=== PATIENT | male | born 1975 | race Caucasian/White ===

== ENCOUNTER 2025-03-15 06:29 | Day surgery (SDC) | payer MEDICARE, MEDICAID, SELFPAY ==
[2025-03-15] VITALS (8 sets, daily range): BP systolic 94–134; BP diastolic 70–98; PULSE 78–91; RESP 16–18; TEMP 36.4–36.8; O2SAT 93–98; BMI 29.0
--- OUTSIDE RECORDS SUMMARY | 2025-03-15 06:47 | XMS RPT_ITS | CCD ---
Demographics Address [address] [place], [place] [id number] Home Phone Preferred Language en Marital Status Rastafari Affiliation Unknown Race White Ethnic Group Not or Lati no Author Organization [facility] ion [facility] TABLET TESTER [facility] Care Team Providers Care Family Resource Management Professor Name Role Phone No, Physician Primary Care Provider Unavailclara e PHYSICIAN, NOT RECORDED Primary Care Physician U MD TERESA Mendez Primary Care Provider DO GUZMAN LYNN Emergency Provider MD BELLA GREEN Admit Provider MD BELLA GREEN Attending Provider MD BORA LONG RICK Other Provider [phone] MD TERESA ROMEO Primary Care Provider DO RAZ RAJAN Emergency Provider [phone] MD TERESA ROMEO Primary Care Provider MD SHAYLA LOPEZ Emergency Provider MD PIA GARLAND Admit Provider MD PIA GARLAND Attending Provider MD BOB MCGUIRE Other Provider No, Physician Primary Care Provider UnavailMD GAURAV Brooks Primary Care Provider [phone] MD NHI CONNORS Emergency Provider [phone] MD CARLYN CAMARGO Emergency Provider MD SHAYLA MARK Admit Provider MD SHAYLA MARK Attending Provider [phone] JEANNINE BEEBE Other Provider YOEL PALMA Primary Care Provider MD FUENTES SAMUELS Emergency Provider MD IKE PEPPER Admit Provider MD IKE PEPPER Attending Provider DO JAMIR CALDERA Other Provider [phone] NO, PHYSICIAN Primary Care Unavailable HIREMATH, WILTON KOTRESHWAR Referring Unav ailable HIREMATH, WILTON SUSAN Attending Unav ailable KAPIL PARK, DR KAYA Torres Attending Carlito DICK MD, DR KAYA Torres Consulting Carlito BAUTISTA MD, BOBBY Casper Primary Care Unavailable NO, PHYSICIAN Primary Care Unavailable HIREMATH, WILTON KOTRESHWAR Attending Unav ailable NO, PHYSICIAN Primary Care Unavailable HIREMATH, WILTON KOTRESHWAR Attending Unav ailable HIREMATH, WILTON KOTRESHWAR Attending Unav ailable NO, PHYSICIAN Primary Care Unavailable HIREMATH, WILTON KOTRESHWAR Admitting Unav ailable [facility], [facility] Consulting Unav ailable NO, PHYSICIAN Primary Care Unavailable HIREMATH, WILTON KOTRESHWAR Admitting Unav ailable HIREMATH, WILTON KOTRESHWAR Attending Unav ailable Unavailable Primary Care Provider Unavailclara HEWITT MD, LILA Miller Emergency Provider [phone] SANA DUMONT MD Admit Provider SANA DUMONT MD Attending Provider GAURAV SPEARS MD Primary Care Provider ROMIE SAHU Primary Care Unavailable ROMIE SAHU Attending Unavailable ROMIE SAHU Referring Unavailable ROMIE SAHU Attending Unavailable ROMIE SAHU Referring Unavailable ROMIE SAHU Referring Unavailable ROMIE SAHU Attending Unavailable ANA MARIA SILVA Admitting Unavailable SERNA, GAURAV Admitting Unavailable JENNI CAMPBELL Attending Unavailable ROMIE SAHU Attending Unavailable ROMIE SAHU Referring Unavailable GAURAV SERNA Attending Unavailable GAURAV SERNA Referring Unavailable GAURAV SPEARS Primary Care Unavailable SANA DUMONT Admitting Unavailable SANA DUMONT Attending Unavailable Jenn Mitchell Attending Provider [phone] Edyta PARK, Dr. Khoury Primary Care Provider [phone] Dr. Peng Lan MD Referring Provider [phone] SHAYLA OSEI DO Admitting Unavailable SHAYLA OSEI DO Primary Care Unavailable SHAYLA OSEI DO Attending Unavailable PENG LAN MD Admitting Unavailable PENG LAN MD Primary Care Unavailable PENG LAN MD Attending Unavailable CARRIE NUNEZ MD Primary Care UnavailCARRIE Kingsley MD Attending UnavailCARRIE Kingsley MD Admitting UnavailJenn Cotton Attending Unavailable Peng Lan Referring Unavailable Peng Lan Primary Care Unavailable Chino Morgan Attending Unavailable Peng Lan Primary Care Unavailable Medications Current Medications Medication Drug Class(es) Dates Sig (Normalized) Sig (Original) amLODIPine 10 mg oral tablet (20 sources) Dihydropyridine Calcium Channel Salazar Start: 01-15-2025 take 1 tablet by mouth once daily Amlodipine 10 mg tablet Active 10 mg PO daily January 15, 2025 12:00am Start: 10-28-2024 take 1 tablet by carmelo th once daily Amlodipine Besylate (Norvasc 5 Mg Tablet) 5 MG Tablet Active 10 MG PO Daily 60 30 October 28, 2024 2:54pm amlodipine 10 mg p.o. daily Start: 06-24-2023 End: 10-28-2024 take 1 tablet by mouth once daily Amlodipine Besylate (Norvasc 5 Mg Tablet) 5 MG Tablet Discontinued 5 MG PO Daily June 24, 2023 1:00am October 28, 2024 2:54pm Start: 05-25-2021 End: 02-10-2023 take 1 tablet by mouth once daily Amlodipine Besylate (Norvasc) 5 MG Tablet Discontinued 5 MG PO Daily February 08, 2022 12:00am February 10, 2023 6:35pm amoxicillin 500 mg oral capsule (1 source) Penicillin-class Antibacterial Start: 10-13-2024 take 1 capsule by mouth every eight hours amoxicillin 500 MG capsule Indications: Dental caries Take 1 capsule by mouth every 8 hours. 30 capsule 10/13/2024 Active aspirin 81 mg chewable tablet (20 sources) Platelet Aggregation Inhibitor, Nonsteroidal Anti-inflammatory Drug Start: 10-13-2024 take 1 tablet by mouth once daily aspirin 81 MG chewable tablet Take 1 tablet by mouth daily. 90 tablet 1 10/13/2024 Active Start: 10-07-2023 aspirin 81 MG EC tablet OK to resume aspirin on 10/07/2023, resume as directed Start: 10/07/23. 1 tablet 0 10/07/2023 Active Start: 10-07-2023 aspirin 81 MG EC tablet OK to resume aspirin on 10/07/2023, resume as directed Start: 10/07/23. 1 tablet 0 10/07/2023 Active Start: 10-07-2023 aspirin 81 MG EC tablet OK to resume aspirin on 10/07/2023, resume as directed Start: 10/07/23. 1 tablet 0 10/07/2023 Start: 06-22-2023 End: 10-02-2023 take 1 tablet by mouth once daily Aspirin (Adult Low Dose Aspirin Ec) 81 MG Tablet. Active 81 MG PO Daily June 22, 2023 1:00am Start: 05-25-2021 End: 06-24-2021 aspirin 81 mg oral tablet, c hewable Dose : 81 mg = 1 tab(s), Chewed, qDay, 0 Refill(s) Start Date: 05/25/21 Stop Date: 06/24/21 Status: Ordered Start: 05-29-2019 End: 11-14-2019 aspirin 81 mg chewable table t Chew and Swallow 1 (one) tablet (81 mg total) daily Start: 10/15/19. 30 tablet 0 10/15/2019 11/14/2019 Active Start: 05-25-2019 End: 05-25-2019 aspirin suppository 300 mg atorvastatin 40 mg oral tablet (20 sources) HMG-CoA Reductase Inhibitor Start: 01-15-2025 take 1 tablet by mouth once daily Atorvastatin 40 mg tablet Active 40 mg PO daily January 15, 2025 12:00am Start: 06-24-2023 End: 10-02-2023 take 1 tablet by mouth at bedtime Atorvastatin Calcium (Lipitor 40 Mg Tablet) 40 MG Tablet Active 40 MG PO Bedtime June 24, 2023 1:00am Start: 10-14-2019 End: 11-13-2019 take 1 tablet by mouth once daily atorvastatin (LIPITOR) 80 MG tablet Take 1 (one) tablet (80 mg total) by mouth nightly . 30 tablet 0 10/14/2019 Active Start: 05-26-2019 End: 10-14-2019 atorvastatin (LIPITOR) table t 80 mg bacillus coagulans [id number] unt / inulin 250 mg oral capsule (1 source) Start: 10-13-2024 take 1 tablet by mouth once daily Bacillus Coagulans-Inulin (PROBIOTIC FORMULA) 1-250 BILLION-MG CAPS Take 1 tablet by mouth daily. 90 capsule 1 10/13/2024 Active baclofen 10 mg oral tablet (20 sources) gamma-Aminobut yric Acid-ergic Agonist Start: 01-15-2025 Baclofen 10 mg table t Active mg PO January 15, 2025 12:00am Start: 09-26-2023 End: 10-02-2023 take 5 mg by mouth twice daily 5 mg, Oral, 2 times sheron ly, First dose on Kristal 09/26/23 at 2100 Start: 06-22-2023 take 1 tablet by carmelo th twice daily Baclofen 5 MG Tablet Active 5 MG PO Two Times A Day June 22, 2023 1:00am Start: 02-08-2022 End: 02-08-2022 take 1 tablet by mouth three times daily Baclofen (Baclofen 10 Mg Tablet) 10 MG Tablet Discontinued 10 MG PO Three Times A Day February 08, 2022 12:00am February 08, 2022 3:41pm Benzocaine (1 source) Standardized Chemical Allergen Benzocaine (ORAJEL MAXIMUM STRENGTH MT) Take by mouth every 4 hours as needed. Active Benzocaine/Menthol/Z inc Chlor (Orajel 3x Mouth Sores Gel) 5.1 GM Gel..Gram. (20 sources) Start: take 5.1 g by mouth four times daily as needed Benzocaine/Menthol/ Zinc Chlor (Orajel 3x Mouth Sores Gel) 5.1 GM Gel..Gram. Active 1 APPLIC PO Four Times a Day as needed for dental pain June 22, 2023 1:00am Start: 06-22-2023 take 5.1 g by mouth four times daily Benzocaine/Menthol/Zinc Chlor (Orajel 3x Mouth Sores Gel) 5.1 GM Gel..Gram. Active 1 APPLIC PO Four Times a Day June 22, 2023 1:00am Start: 06-22-2023 take 5.1 g by mouth four times daily Benzocaine/Menthol/Zinc Chlor (Orajel 3x Mouth Sores Gel) 5.1 GM Gel..Gram. Active 1 APPLIC PO Four Times a Day June 22, 2023 12:00am cimetidine 400 mg oral tablet (1 source) Histamine-2 Receptor Antagonist take 1 tablet by mouth twice daily cimetidine (TAGAMET) 400 MG tablet Take 400 mg by mouth two times a day. Active doxycycline hyclate 100 mg oral capsule (1 source) Tetracycline-class Drug Start: 05-25-20 End: 05-28-20 doxycycline hyclate 100 mg oral capsule Dose : 100 mg = 1 cap(s), Oral, BID, 0 Refill(s) Start Date: 05/25/21 Stop Date: 05/28/21 Status: Ordered DULoxetine 60 mg delayed release oral capsule (20 sources) Serotonin and Norepinephrine Reuptake Inhibitor Start: 10-14-19 take 1 capsule by mouth twice daily DULoxetine (CYMBALTA) 60 MG capsule Take 1 capsule by mouth two times a day. 180 capsule 1 10/13/2024 Active Start: 02-08-2022 take 1 capsule by [facility] once daily Duloxetine Hcl (Rita Marley) 60 MG Cap. Active 60 MG PO Daily February 07, 2022 11:00pm Start: 05-25-2021 End: 10-02-2023 take 1 capsule by mouth once daily Duloxetine Hcl (Cymbalta) 60 MG Capsule. Active 60 MG PO Daily February 10, 2023 12:00am famotidine 20 mg oral tablet (20 sources) Histamine-2 Receptor Antagonist Start: 02-10-2023 take 1 tablet by mouth once daily Famotidine (Pepcid 20 Mg Tablet) 20 MG Tablet Active 40 MG PO Daily February 09, 2023 11:00pm Start: 02-08-2022 End: 06-27-2023 Famotidine (Pepcid Ac) 10 MG Tablet Discontinued 40 MG PO Daily February 08, 2022 12:00am June 27, 2023 7:00pm Start: 02-08-2022 take 1 tablet by carmelo th once daily before mealtime Famotidine (Pepcid Ac) 10 MG Tablet Active 10 MG PO Daily February 08, 2022 12:00am Start: 08-15-2019 End: 11-13-2019 take 1 tablet by mouth once daily famotidine (PEPCID) 20 MG tablet Take 1 (one) tablet (20 mg total) by mouth nightly . 30 tablet 0 10/14/2019 Active Start: 05-26-2019 End: 05-29-2019 20 mg, Intravenous, Every 12 hours scheduled, First dose on Sat05/26/19 at 0200 Aseptically dilute dose of famotidine injection with 0.9% NaCl to a total volume of either 5 ml or 10 ml and inject over 2 minutes. take 1 tablet by carmelo th twice daily famotidine (PEPCID) 20 MG tablet Take 1 tablet by mouth two times a day. Active finasteride 5 mg oral tablet (20 sources) 5-alpha Reductase Inhibitor Start: 01-15-2025 take 1 tablet by mouth once daily Finasteride 5 mg tablet Active 5 mg PO daily January 15, 2025 12:00am Start: 02-16-2022 End: 10-02-2023 take 1 tablet by mouth once daily Finasteride (Proscar 5 Mg Tablet) 5 MG Tablet Active 5 MG PO Daily February 16, 2022 12:00am gabapentin 300 mg oral capsule (12 sources) Anti-epileptic Agent Start: 10-14-2019 End: 10-17-2019 take 3 capsules by mouth every eight hours gabapentin (NEURONTIN) 300 MG capsule Take 3 (three) capsules (900 mg total) by mouth every 8 (eight) hours for 3 days . 27 capsule 0 10/14/2019 Active Start: 09-28-2019 End: 10-14-2019 gabapentin (NEURONTIN) capsu le 900 mg Start: 09-21-2019 End: 09-28-2019 gabapentin (NEURONTIN) capsu le 800 mg Start: 09-06-2019 End: 09-21-2019 gabapentin (NEURONTIN) capsu le 500 mg Start: 09-05-2019 End: 09-06-2019 gabapentin (NEURONTIN) capsu le 300 mg Start: 09-04-2019 End: 09-05-2019 gabapentin (NEURONTIN) 300 m g/6 mL (6 mL) solution 200 mg Hydrocodone-Acetamin 5-325 mg (6 sources) Start: 02-10-2023 take 1 tablet by mouth every four hours Hydrocodone-Acetamin 5-325 mg Active 1 TAB PO Q4H February 09, 2023 11:00pm Start: 02-10-2023 take 1 tablet by carmelo th every four hours Hydrocodone-Acetamin 5-325 mg Active 1 TAB PO Q4H February 10, 2023 12:00am hydrocortisone 0.01 mg/mg topical ointment (20 sources) Corticosteroid Start: 06-22-2023 Hydrocortisone (Hydrocortisone 1% Ointment) 28.35 GM Oint Active 1 APPLIC TP Four Times a Day as needed for Itching June 22, 2023 1:00am hydrOXYzine hydrochloride 25 mg oral tablet (4 sources) Antihistamine Start: 08-11-2019 End: 10-24-2019 take 1 tablet by mouth every six hours as needed hydrOXYzine (ATARAX) 25 MG tablet Take 1 (one) tablet (25 mg total) by mouth every 6 (six) hours as needed for anxiety . 30 tablet 0 10/14/2019 10/24/2019 Active Start: 06-15-2019 End: 08-11-2019 hydrOXYzine (ATARAX) 10 mg/5 mL syrup 25 mg levETIRAcetam 500 mg oral tablet (20 sources) Start: 01-15-2025 take 1 tablet by mouth twice daily Levetiracetam 500 mg tablet Active 500 mg PO TWICE A DAY January 15, 2025 12:00am Start: 05-26-2021 End: 10-02-2023 take 1 tablet by mouth twice daily Levetiracetam (Keppra) 500 MG Tablet Active 500 MG PO Two Times A Day February 08, 2022 12:00am levoFLOXacin 750 mg oral tablet (7 sources) Quinolone Antimicrobial Start: 10-28-2024 take 1 tablet by mouth once daily Levofloxacin 750 MG Tablet Active 750 MG PO Daily October 28, 2024 12:00am take levofloxacin 750 mg p.o. daily for the following 14 days Start: 07-21-2019 End: 07-26-2019 levoFLOXacin (LEVAQUIN) tabl et 500 mg Start: 06-02-2019 End: 06-09-2019 levoFLOXacin (LEVAQUIN) IVPB 750 mg (premix) lidocaine hydrochloride 20 mg/ml mucous membrane topical solution (8 sources) Antiarrhythmic, Amide Local Anesthetic Start: 10-28-2024 Lidocaine Hcl (Lidocaine Viscous 2% Liquid) 15 ML Cup Active 15 ML PO Q3H as needed for TOOTH PAIN 2 October 28, 2024 12:00am lidocaine 15 mL p.o. q.3h PRN Start: 09-26-2023 End: 09-26-2023 lidocaine 1% (PF) (XYLOCAINE -MPF) 10 mg/mL (1 %) injection 0.2 mL Start: 06-24-2019 End: 10-14-2019 lidocaine (LIDODERM) 2 patch Start: 06-10-2019 End: 06-10-2019 lidocaine 2% (PF) 20 mg/mL ( 2 %) injection 1 mL loratadine 10 mg oral tablet (1 source) Start: 11-23-2022 take 1 tablet by mouth once daily loratadine (CLARITIN) 10 MG tablet Take 1 tablet by mouth daily. 30 tablet 11/23/2022 Active losartan potassium 100 mg oral tablet (1 source) Angiotensin 2 Receptor Salazar Start: 10-13-2024 take 1 tablet by mouth once daily losartan (COZAAR) 100 MG tablet Indications: Primary hypertension Take 1 tablet by mouth daily. 90 tablet 1 10/13/2024 Active magnesium hydroxide 80 mg/ml oral suspension (20 sources) Start: 06-22-2023 End: 10-02-2023 take 1 mL by mouth once daily Magnesium Hydroxide (Milk Of Magnesia) 400 MG/5 ML Oral.Susp Active 30 ML PO Daily 0 June 27, 2023 7:19pm Start: 02-08-2022 End: 06-27-2023 take 1 mL by mouth every twenty-four hours as needed for constipation Magnesium Hydroxide (Milk Of Magnesia) 400 MG/5 ML Oral.Susp Discontinued 30 ML PO Q24H as needed for Constipation February 08, 2022 12:00am June 27, 2023 6:58pm Start: 07-23-2019 End: 10-14-2019 magnesium hydroxide (MOM) 40 0 mg/5 mL suspension 2,400 mg Start: 05-26-2019 End: 07-20-2019 magnesium hydroxide (MOM) 40 0 mg/5 mL suspension 2,400 mg medroxyPROGESTERone acetate 10 mg oral tablet (20 sources) Progestin Start: 10-13-2024 take 1 tablet by mouth once daily medroxyPROGESTERone (PROVERA) 10 MG tablet Take 1 tablet by mouth daily. 90 tablet 1 10/13/2024 Active Start: 02-10-2023 End: 10-02-2023 take 1 tablet by mouth twice daily Medroxyprogesterone Acetate (Provera) 10 MG Tablet Active 10 MG PO Two Times A Day February 10, 2023 12:00am take 1 tablet by carmelo th once daily medroxyPROGESTERone (PROVERA) 10 MG tablet Take 1 (one) tablet (10 mg total) by mouth daily . 0 Active Menthol (7 sources) Start: 05-26-2021 Biofreeze 4% t opical gel Apply 1 beryl, Topical, BID, PRN as needed for pain, # 118 mL, 0 Refill(s), Gel, 94.9 Start Date: 05/26/21 Status: Ordered End: 09-27-2023 menthol 4 % Gel Apply topica lly 2 (two) times a day as needed (knees/shoulders) . 0 09/27/2023 Discontinued (Error) Menthol (Biofreeze) 473 ML Gel..Ml. (20 sources) Start: 02-08-2022 Menthol (Biofr eeze) 473 ML Gel..Ml. Active 1 APPLIC TP Two Times A Day February 07, 2022 11:00pm LEFT KNEE Start: 02-08-2022 Menthol (Biofr eeze) 473 ML Gel..Ml. Active 1 APPLIC TP Two Times A Day February 08, 2022 12:00am LEFT KNEE Milk of Magnesia (2 sources) Start: 05-26-2021 take 1200 mg by mouth once daily at bedtime as needed for constipation Milk of Magnesia 1,200 mg, Oral, qHS, PRN as needed for constipation, 0 Refill(s) Start Date: 05/26/21 Status: Ordered 24 hr nicotine 0.875 mg/hr transdermal system (6 sources) Cholinergic Nicotinic Agonist Start: 10-28-2024 Nicotine (Nicoderm Cq 21 Mg/24 Hr Patch) 1 PATCH Patch Active 1 PATCH TP Q24H 30 October 28, 2024 12:00am apply nicotine patch daily. remove patch 4 hours prior to sleep Start: 08-20-2019 End: 11-13-2019 take 2 mg oropharyngeal route every hour as needed nicotine polacrilex (NICORETTE) 2 mg gum Apply 1 (one) each (2 mg total) to the mouth or throat every hour as needed for smoking cessation . 100 each 0 10/14/2019 11/13/2019 Active nitroglycerin 0.4 mg sublingual tablet (20 sources) Nitrate Vasodilator Start: 06-22-2023 Nitroglyce rin (Nitrostat) 0.4 MG Tab.Subl Active 0 .ROUTE .COMPLEX as needed for Chest Pain June 22, 2023 1:00am give 1 tablet sl every 5 minutes as needed for [place] pain up to three doses ondansetron 4 mg oral tablet (20 sources) Serotonin-3 Receptor Antagonist Start: 01-15-2025 Ondansetron Hcl 4 mg tablet Active mg PO January 15, 2025 12:00am Start: 02-10-2023 take 4 capsules by m outh once as needed for nausea Zofran 4 mg Odt Milligram Active 4 CAP PO As Per Instructions as needed for Nausea / Vomiting February 10, 2023 12:00am Start: 02-16-2022 End: 02-10-2023 take 1 tablet by mouth every eight hours as needed for nausea Ondansetron (Zofran 4 Mg Disintegrating Tablet) 4 MG Tablet Discontinued 4 MG PO Q8H as needed for Nausea / Vomiting 90 30 February 16, 2022 3:52pm February 10, 2023 6:32pm Start: 05-25-2021 Zofran 4 mg or al tablet Dose : 4 mg = 1 tab(s), Oral, q6h, PRN Nausea/Vomiting, # 20 tab(s), 0 Refill(s) Start Date: 05/25/21 Status: Ordered Start: 07-27-2019 End: 10-14-2019 take 4 mg intravenous route every six hours as needed ondansetron (ZOFRAN) injection 4 mg Start: 07-24-2019 End: 10-21-2019 take 1 tablet by mouth every six hours as needed ondansetron (ZOFRAN-ODT) 4 MG disintegrating tablet Dissolve 1 (one) tablet (4 mg total) on top of tongue every 6 (six) hours as needed . 20 tablet 0 10/14/2019 Active Start: 05-26-2019 End: 07-24-2019 take 4 mg intravenous route every six hours as needed 4 mg, Intravenous, Every 6 hours PRN, nausea, vomiting, Starting Sat05/26/19 at 0112 take 1 tablet by carmelo th every six hours as needed ondansetron (ZOFRAN) 4 MG tablet Take 1 tablet by mouth every 6 hours as needed for Nausea and/or Vomiting. Active pantoprazole 40 mg delayed release oral tablet (20 sources) Proton Pump Inhibitor Start: 06-27-2023 End: 10-02-2023 take 1 tablet by mouth once daily Pantoprazole Sodium 40 MG Tablet.Dr Active 40 MG PO Daily June 27, 2023 1:00am polyethylene glycol 3350 28789 mg powder for oral solution (20 sources) Osmotic Laxative Start: 02-08-2022 End: 10-02-2023 take 17 g by mouth once daily as needed Polyethylene Glycol 3350 (Miralax Packet 17 Gm) 17 GM Packet Active 1 PACKET PO Daily as needed for Constipation February 10, 2023 12:00am Start: 05-25-2021 take 17 doses by carmelo th once daily GlycoLax oral powder for reconstitution Dose : 17 gram(s) =, Oral, Daily, 0 Refill(s) Start Date: 05/25/21 Status: Ordered Start: 08-11-2019 End: 10-22-2019 polyethylene glycol (MIRALAX ) 17 gram powder Take 17 (seventeen) g by mouth daily for 7 days Start: 10/15/19. 255 g 0 10/15/2019 10/22/2019 Active Start: 06-17-2019 End: 07-20-2019 polyethylene glycol (MIRALAX ) powder 17 g Start: 05-28-2019 End: 06-07-2019 polyethylene glycol (MIRALAX ) powder 17 g rivastigmine 4.5 mg oral capsule (20 sources) Start: 02-08-2022 Rivastigmine T artrate (Rivastigmine) 4.5 MG Capsule Active 6 MG PO Two Times A Day February 08, 2022 12:00am Start: 02-08-2022 take 1 capsule by mo ut once daily Rivastigmine Tartrate (Rivastigmine) 4.5 MG Capsule Active 4.5 MG PO Daily February 08, 2022 12:00am Start: 05-25-2021 rivastigmine 4 .5 mg oral capsule Dose : 4.5 mg = 1 cap(s), Oral, qDay, 0 Refill(s) Start Date: 05/25/21 Status: Ordered End: 09-27-2023 take 6 mg by mouth twice daily RIVASTIGMINE TARTRATE O RAL Take 6 mg by mouth 2 (two) times a day . 0 09/27/2023 Discontinued (Error) Senna Leaves (2 sources) Start: 05-25-2021 senna 8.6 mg oral tablet Dose : 17.2 mg = 2 tab(s), Oral, qHS, PRN as needed for constipation, # 20 tab(s), 0 Refill(s) Start Date: 05/25/21 Status: Ordered sildenafil 50 mg oral tablet (1 source) Phosphodiesterase 5 Inhibitor Start: 10-13-2024 take 1 tablet by mouth once daily as needed sildenafil (VIAGRA) 50 MG tablet Indications: Erectile dysfunction due to arterial insufficiency Take 1 tablet by mouth daily as needed for Erectile Dysfunction. 10 tablet 2 10/13/2024 Active suvorexant 10 mg oral tablet (1 source) Orexin Receptor Antagonist take 1 tablet by mouth once daily Suvorexant (BELSOMRA) 10 MG TABS Take 10 mg by mouth daily. Active tamsulosin hydrochloride 0.4 mg oral capsule (20 sources) alpha-Adrenergic Salazar Start: 01-15-2025 Tamsulosin 0.4 mg capsule Active mg PO January 15, 2025 12:00am Start: 10-28-2024 take 1 capsule by [facility] twice daily Tamsulosin Hcl (Flomax) 0.4 MG Capsule Active 0.4 MG PO Two Times A Day October 28, 2024 8:29am Start: 02-16-2022 End: 10-28-2024 take 1 capsule by mouth once daily Tamsulosin Hcl (Flomax) 0.4 MG Capsule Discontinued 0.4 MG PO Daily February 16, 2022 12:00am October 28, 2024 8:29am traZODone hydrochloride 50 mg oral tablet (1 source) Serotonin Reuptake Inhibitor Start: 01-15-2025 Trazodone 50 mg tablet Active 25 mg PO AT BEDTIME as needed January 15, 2025 12:00am Vitamin D3 1250 mcg (50,000 intl units) oral capsule (2 sources) Start: 05-25-2021 Vitamin D3 125 0 mcg (50,000 intl units) oral capsule Dose : 1,250 mcg = 1 cap(s), Oral, qWeek, # 12 cap(s), 0 Refill(s) Start Date: 05/25/21 Status: Ordered Completed/Discontinued Medications Medication Drug Class(es) Dates Sig (Normalized) Sig (Original) acetaminophen 325 mg oral tablet (20 sources) Start: 09-26-2023 End: 10-02-2023 take 1 tablet by mouth every four hours as needed 650 mg, Oral, Every 4 hours PRN, fever 100.4 F or greater, Starting on Kristal 09/26/23 at 1914 Start: 02-16-2022 End: 02-10-2023 take 1 tablet by mouth every four hours Acetaminophen (Tylenol Es 500 Mg Tablet) 500 MG Tablet Discontinued 500 MG PO Q4H February 16, 2022 12:00am February 10, 2023 6:36pm Start: 02-08-2022 Acetaminophen (Aphen) 325 MG Tablet Active 650 MG PO Q4H as needed for Mild(1-3) To Mod(4-6) Pain February 08, 2022 12:00am Start: 05-25-2021 acetaminophen 500 mg oral tablet Dose : 500 mg = 1 tab(s), Oral, q6hr, PRN as needed for pain, # 24 tab(s), 0 Refill(s) Start Date: 05/25/21 Status: Ordered Start: 07-20-2019 End: 10-14-2019 take 1 tablet by mouth every six hours as needed acetaminophen (TYLENOL) tablet 650 mg Start: 06-09-2019 End: 07-20-2019 acetaminophen (TYLENOL) solu tion 650 mg Start: 05-31-2019 End: 05-31-2019 acetaminophen (TYLENOL) solu tion 650 mg Start: 05-28-2019 End: 06-09-2019 acetaminophen (TYLENOL) solu tion 975 mg Start: 05-27-2019 End: 05-27-2019 acetaminophen (TYLENOL) solu tion 325 mg Start: 05-26-2019 End: 05-28-2019 acetaminophen (TYLENOL) solu tion 650 mg take 2 tablets by mo uth twice daily acetaminophen 500 MG tablet Take 2 tablets by mouth two times per day. Active take 2 tablets by mo uth three times daily acetaminophen (TYLENOL) 325 MG tablet Indications: pain Take 2 (two) tablets (650 mg total) by mouth 3 (three) times a day Reasons: pain. 0 Active [id number] 200 actuat albuterol 0.09 mg/actuat metered dose inhaler (5 sources) beta2-Adrenergic Agonist End: 09-27-2023 take 2 puff(s) by inhalation every six hours as needed for wheezing albuterol 90 mcg/actuation inhaler Inhale 2 (two) puffs every 6 (six) hours as needed for wheezing . 0 09/27/2023 Discontinued (Error) Albuterol Sulfate (Albuterol Sulfate Hfa) 8.5 GM Hfa.Aer.Ad (20 sources) Start: 02-10-2023 End: 10-28-2024 take 8.5 g by inhalation every four hours as needed for cough Albuterol Sulfate (Albuterol Sulfate Hfa) 8.5 GM Hfa.Aer.Ad Discontinued 8.5 GM IH Q4H as needed for COUGH/DYSPNEA February 10, 2023 12:00am October 28, 2024 2:29pm * 2 PUFFS Start: 02-10-2023 take 8.5 g by inhala tion every four hours Albuterol Sulfate (Albuterol Sulfate Hfa) 8.5 GM Hfa.Aer.Ad Active 8.5 GM IH Q4H February 09, 2023 11:00pm * 2 PUFFS Start: 02-10-2023 take 8.5 g by inhala tion every four hours Albuterol Sulfate (Albuterol Sulfate Hfa) 8.5 GM Hfa.Aer.Ad Active 8.5 GM IH Q4H February 10, 2023 12:00am * 2 PUFFS aluminum hydroxide 40 mg/ml / magnesium hydroxide 40 mg/ml / simethicone 4 mg/ml oral suspension (20 sources) Start: 02-08-2022 End: 02-10-2023 take 1 mL by mouth every six hours Mag Hydrox/Al Hydrox/Simeth (Mylanta/Maalox Generic Liquid 30 Ml) 30 ML Oral.Susp Discontinued 30 ML PO Q6H February 08, 2022 12:00am February 10, 2023 6:33pm FOR DYSPEPSIA Start: 08-14-2019 End: 10-14-2019 aluminum-magnesium hydroxide -simethicone (MAALOX PLUS) 200-200-20 mg/5 mL suspension 30 mL barium sulfate (VARIBAR LIBERTY Y) 40 % (w/v) 29% (w/w) oral solution 1 Dose (2 sources) Start: 07-09-2019 End: 07-09-2019 barium sulfate (VARIBAR LIBERTY Y) 40 % (w/v) 29% (w/w) oral solution 1 Dose Start: 06-27-2019 End: 06-27-2019 barium sulfate (VARIBAR LIBERTY Y) 40 % (w/v) 29% (w/w) oral solution 1 Dose barium sulfate (VARIBAR NECT AR) 40 % (w/v) oral suspension 1 Dose (2 sources) Start: 07-09-2019 End: 07-09-2019 barium sulfate (VARIBAR NECT AR) 40 % (w/v) oral suspension 1 Dose Start: 06-27-2019 End: 06-27-2019 barium sulfate (VARIBAR NECT AR) 40 % (w/v) oral suspension 1 Dose barium sulfate (VARIBAR PUDD ING) 40 % (w/v), 30% (w/w) oral paste 1 Dose (1 source) Start: 07-09-2019 End: 07-09-2019 barium sulfate (VARIBAR PUDDING) 40 % (w/v), 30% (w/w) oral paste 1 Dose barium sulfate (VARIBAR THIN LIQUID) 40 % (w/v) solution 1 Dose (2 sources) Start: 07-09-2019 End: 07-09-2019 barium sulfate (VARIBAR THIN LIQUID) 40 % (w/v) solution 1 Dose Start: 06-27-2019 End: 06-27-2019 barium sulfate (VARIBAR THIN LIQUID) 40 % (w/v) solution 1 Dose benzonatate 100 mg oral capsule (2 sources) Non-narcotic Antitussive Start: 07-19-2019 End: 07-23-2019 benzonatate (TESSALON) capsule 100 mg bisacodyl 10 mg rectal suppository (7 sources) Stimulant Laxative Start: 09-26-2023 End: 10-02-2023 10 mg, Rectal, Daily PRN, constipation, Starting on Kristal 09/26/23 at 1914, [] Administer if Milk of Magnesia (MOM) is ineffective, or not ordered. Start: 02-08-2022 End: 06-27-2023 Bisacodyl (Onelax) 10 MG Sup p.Rect Discontinued 10 MG RC Q24H as needed for Constipation February 08, 2022 12:00am June 27, 2023 7:00pm Start: 05-26-2019 End: 10-24-2019 bisacodyL (DULCOLAX) 10 mg s uppository Insert 1 (one) suppository (10 mg total) into the rectum daily as needed for constipation . 12 suppository 0 10/14/2019 10/24/2019 Active Bisacodyl (Onelax) 10 MG Supp.Rect (20 sources) Start: 02-08-2022 End: 06-27-2023 Bisacodyl (Onelax) 10 MG Supp.Rect Discontinued 10 MG RC Q24H February 08, 2022 12:00am June 27, 2023 7:00pm Start: 02-08-2022 End: 06-27-2023 Bisacodyl (Onelax) 10 MG Sup p.Rect Discontinued 10 MG RC Q24H February 07, 2022 11:00pm June 27, 2023 6:00pm Start: 02-08-2022 Bisacodyl (One lax) 10 MG Supp.Rect Active 10 MG RC Q24H February 07, 2022 11:00pm Start: 02-08-2022 Bisacodyl (One lax) 10 MG Supp.Rect Active 10 MG RC Q24H February 08, 2022 12:00am bisacodyl 10 mg rectal suppository (2 sources) Start: 05-25-2021 bisacodyl 10 mg rectal suppository Dose : 10 mg = 1 supp, Rectal, Daily, PRN for constipation, # 10 supp, 0 Refill(s) Start Date: 05/25/21 Status: Ordered brexpiprazole 0.5 mg oral tablet (6 sources) Atypical Antipsychotic Start: 09-27-2023 End: 10-02-2023 take 1 mg by mouth once daily in the morning 1 mg, Oral, Every morning, First dose on Sat09/27/23 at 0900, Indication: Continuation of home therapy take 1 tablet by carmelo th once daily in the morning brexpiprazole (Rexulti) 1 mg Tab Take 1 (one) tablet (1 mg total) by mouth every morning . 0 Active busPIRone hydrochloride 10 mg oral tablet (2 sources) Start: 05-31-2019 End: 06-08-2019 busPIRone (BUSPAR) tablet 30 mg calcium chloride 0.0014 meq/ml / potassium chloride 0.004 meq/ml / sodium chloride 0.103 meq/ml / sodium lactate 0.028 meq/ml injectable solution (1 source) Start: 06-21-2019 End: 06-24-2019 lactated Ringers infusion ceFAZolin 2000 mg injection (2 sources) Cephalosporin Antibacterial Start: 06-09-2019 End: 06-09-2019 ceFAZolin (ANCEF) IVPB 2 g (premix) Start: 05-26-2019 End: 05-27-2019 take 2000 mg intravenous route every eight hours 2,000 mg, Intravenous, at 200 mL/hr, Every 8 hours, First dose on Sat05/26/19 at 1600, For 2 doses Starting 8 hours after pre-procedure dose x 2 doses. Indication (POST PROCEDURE): Neurology cefdinir 300 mg oral capsule (20 sources) Cephalosporin Antibacterial Start: 02-16-2022 End: 02-10-2023 take 1 capsule by mouth every twelve hours Cefdinir 300 MG Capsule Discontinued 300 MG PO Q12H 4 2 February 16, 2022 12:00am February 10, 2023 6:35pm cefepime 2000 mg injection (1 source) Cephalosporin Antibacterial Start: 06-01-2019 End: 06-02-2019 take 2000 mg intravenous route every eight hours cefePIMe-dextrose (MAXIPIME) 2 gram/50 mL IVPB 2,000 mg chlorhexidine gluconate 1.2 mg/ml mouthwash (1 source) Start: 05-26-2019 End: 06-11-2019 take 15 mL by mouth twice daily 15 mL, Swab, 2 times daily, First dose on Sat05/26/19 at 0900 Swab mouth thoroughly while intubated. cholecalciferol 1.25 mg oral capsule (20 sources) Vitamin D Start: 02-08-2022 End: 02-10-2023 take 1 capsule by mouth once daily Cholecalciferol (Vitamin D3) (D3-50) 1,250 MCG Capsule Discontinued 1 CAPSULE PO Daily February 08, 2022 12:00am February 10, 2023 6:35pm citalopram 10 mg oral tablet (20 sources) Serotonin Reuptake Inhibitor Start: 02-08-2022 End: 02-16-2022 take 1 tablet by mouth once daily Citalopram Hydrobromide (Celexa 10 Mg Tablet) 10 MG Tablet Discontinued 10 MG PO Daily February 08, 2022 12:00am February 16, 2022 3:51pm Start: 05-25-2021 CeleXA 10 mg o ral tablet Dose : 10 mg = 1 tab(s), Oral, qDay, # 30 tab(s), 0 Refill(s) Start Date: 05/25/21 Status: Ordered codeine phosphate 2 mg/ml / guaiFENesin 20 mg/ml oral solution (2 sources) Opioid Agonist Start: 06-10-2019 End: 07-20-2019 guaiFENesin-codeine (TUSSI-ORGANIDIN NR) 10-100 mg/5 mL syrup 5 mL Start: 06-10-2019 End: 06-10-2019 take 5 mL by mouth every four hours as needed guaiFENesin-codeine (TUSSI-ORGANIDIN NR) 10-100 mg/5 mL syrup 5 mL cyclobenzaprine hydrochloride 10 mg oral tablet (20 sources) Muscle Relaxant Start: 02-08-2022 End: 02-10-2023 take 1 tablet by mouth three times daily Cyclobenzaprine Hcl (Flexeril 10 Mg Tablet) 10 MG Tablet Discontinued 10 MG PO Three Times A Day February 08, 2022 12:00am February 10, 2023 6:35pm Start: 05-25-2021 cyclobenzaprin e 10 mg oral tablet Dose : 10 mg = 1 tab(s), Oral, TID, PRN for spasm, # 30 tab(s), 0 Refill(s) Start Date: 05/25/21 Status: Ordered Start: 06-24-2019 End: 10-24-2019 take 1 tablet by mouth three times daily as needed for muscle spasms cyclobenzaprine (FLEXERIL) 5 MG tablet Take 1 (one) tablet (5 mg total) by mouth 3 (three) times a day as needed for muscle spasms (d/t left hip pain) . 30 tablet 0 10/14/2019 10/24/2019 Active 100 ml dexmedetomidine 0.004 mg/ml injection (2 sources) Central alpha-2 Adrenergic Agonist Start: 06-08-2019 End: 06-10-2019 dexmedetomidine (PRECEDEX) infusion 400 mcg/100 mL in 0.9% sodium chloride Start: 05-28-2019 End: 05-31-2019 dexmedetomidine (PRECEDEX) i nfusion 400 mcg/100 mL in 0.9% sodium chloride diphenhydrAMINE (1 source) Histamine-1 Receptor Antagonist Start: 06-27-2019 End: 06-27-2019 diphenhydrAMINE (BENADRYL) injection 25 mg docusate sodium 50 mg / sennosides, long-term 8.6 mg oral tablet (4 sources) Start: 09-26-2023 End: 10-02-2023 take 1 tablet by mouth twice daily 1 tablet, Oral, 2 times daily, First dose on Sat09/26/23 at 2100, Hold for loose stools Do Not Crush or Chew if administering orally due to bitter taste. May be crushed if given via tube. Start: 05-26-2019 End: 07-15-2019 senna-docusate (SENNA-S) 8.6 -50 mg per tablet 1 tablet Start: 05-26-2019 End: 05-26-2019 take 1 tablet by mouth twice daily 1 tablet, Oral, 2 times daily, First dose on Sat05/26/19 at 0900 NOT for abdominal surgery patients. Hold for loose stools. Do Not Crush or Chew if administering orally due to bitter taste. May be crushed if given via tube. 0.4 ml enoxaparin sodium 100 mg/ml prefilled syringe (3 sources) Low Molecular Weight Heparin Start: 09-27-2023 End: 10-02-2023 inject 40 mg by subcutaneous injection once daily 40 mg, Subcutaneous, Daily, First dose on Sat09/27/23 at 1500, Administer in abdomen unless otherwise directed by prescriber. Notify physician if patient refuses., Indication: VTE Prophylaxis Start: 06-19-2019 End: 10-14-2019 enoxaparin (LOVENOX) syringe 40 mg Start: 05-28-2019 End: 05-31-2019 inject 40 mg by subcutaneous injection once daily 40 mg, Subcutaneous, Daily, First dose (after last modification) on Kristal 05/28/19 at 1200 Administer in abdomen unless otherwise directed by prescriber. Notify physician if patient refuses. Indication: VTE Prophylaxis erythromycin 0.005 mg/mg ophthalmic ointment (1 source) Macrolide, Macrolide Antimicrobial Start: 10-22-2024 End: 10-22-2024 1-2 cm, Right Eye, NOW, 1 dose, On Kristal 10/22/24 at 1700 20 ml fentaNYL 0.05 mg/ml injection (8 sources) Opioid Agonist Start: 06-08-2019 End: 07-03-2019 fentaNYL (SUBLIMAZE) injection Start: 06-07-2019 End: 06-07-2019 fentaNYL (SUBLIMAZE) injecti on 50 mcg Start: 06-07-2019 End: 06-08-2019 take 25 ug intravenous route every two hours as needed fentaNYL (SUBLIMAZE) injection 25 mcg Start: 06-05-2019 End: 06-05-2019 fentaNYL (SUBLIMAZE) injecti on 50 mcg Start: 05-27-2019 End: 06-01-2019 take 50 ug intravenous route every hour as needed fentaNYL (SUBLIMAZE) injection 50 mcg fentaNYL (SUBLIMAZE) bolus f rom bag 50-100 mcg (1 source) Start: 06-01-2019 End: 06-07-2019 fentaNYL (SUBLIMAZE) bolus f rom bag 50-100 mcg fentaNYL (SUBLIMAZE) infusio n 2,500 mcg/250 mL in NS (2 sources) Start: 06-01-2019 End: 06-07-2019 fentaNYL (SUBLIMAZE) infusio n 2,500 mcg/250 mL in NS Start: 06-01-2019 End: 06-01-2019 fentaNYL (SUBLIMAZE) infusio n 2,500 mcg/250 mL in NS fentaNYL (SUBLIMAZE) inj syringe 25 mcg (1 source) Start: 09-26-2023 End: 09-26-2023 25 mcg, Intravenous, Every 5 min PRN, Pain, Starting on Kristal 09/26/23 at 1403, For 4 doses, PACU (only), [] Do not give more than 100 mcg while in PACU. fludrocortisone 0.1 mg oral tablet (2 sources) Start: 05-28-2019 End: 06-01-2019 fludrocortisone (FLORINEF) tablet 0.1 mg fluticasone propionate 0.05 mg/actuat metered dose nasal spray (1 source) Corticosteroid Start: 07-19-2019 End: 07-30-2019 fluticasone propionate (FLONASE) 50 mcg/actuation nasal spray 2 spray furosemide 20 mg oral tablet (20 sources) Loop Diuretic Start: 02-16-2022 End: 02-10-2023 take 1 tablet by mouth once daily Furosemide (Lasix 20 Mg Tablet) 20 MG Tablet Discontinued 20 MG PO Daily 3 February 16, 2022 12:00am February 10, 2023 6:34pm Start: 06-05-2019 End: 06-11-2019 furosemide (LASIX) injection 20 mg Start: 06-02-2019 End: 06-05-2019 furosemide (LASIX) injection 40 mg Start: 06-01-2019 End: 06-01-2019 furosemide (LASIX) injection 20 mg 2 ml glycopyrrolate 0.2 mg/ml injection (1 source) Start: 06-15-2019 End: 07-15-2019 take 0.2 mg intravenous route every four hours as needed glycopyrrolate (ROBINUL) injection 0.2 mg guaiFENesin 20 mg/ml oral solution (20 sources) Start: 06-22-2023 End: 06-27-2023 Guaifenesin (Adult Tussin) 100 MG/5 ML Liquid Discontinued 10 ML PO Resp Therapy Q4 as needed for Cough June 22, 2023 1:00am June 27, 2023 6:59pm Start: 06-22-2023 End: 06-27-2023 Guaifenesin (Adult Tussin) 1 00 MG/5 ML Liquid Discontinued 10 ML PO Resp Therapy Q4 June 22, 2023 1:00am June 27, 2023 6:59pm Start: 06-22-2023 End: 06-27-2023 Guaifenesin (Adult Tussin) 1 00 MG/5 ML Liquid Discontinued 10 ML PO Resp Therapy Q4 June 22, 2023 12:00am June 27, 2023 5:59pm Start: 06-22-2023 Guaifenesin (A dult Tussin) 100 MG/5 ML Liquid Active 10 ML PO Resp Therapy Q4 June 22, 2023 12:00am Start: 08-11-2019 End: 10-14-2019 guaiFENesin (MUCINEX) 12 hr tablet 600 mg Start: 07-23-2019 End: 07-30-2019 guaiFENesin (ROBITUSSIN) 100 mg/5 mL syrup 300 mg Start: 07-20-2019 End: 07-23-2019 guaiFENesin (MUCINEX) 12 hr tablet 600 mg 1 ml heparin sodium, porcine 5000 unt/ml injection (1 source) Unfractionated Heparin, Anti-coagulant Start: 06-01-2019 End: 06-19-2019 heparin (porcine) injection 5,000 Units 1 ml hydrALAZINE hydrochloride 20 mg/ml injection (1 source) Arteriolar Vasodilator Start: 05-26-2019 End: 06-11-2019 take 10 mg intravenous route every two hours as needed hydrALAZINE (APRESOLINE) injection 10 mg 0.5 ml HYDROmorphone hydrochloride 1 mg/ml prefilled syringe (3 sources) Opioid Agonist Start: 09-26-2023 End: 10-01-2023 take 0.5-1.5 mg intravenously every three hours as needed 0.5-1.5 mg, Intravenous, Every 3 hours PRN, moderate to severe pain, Starting on Kristal 09/26/23 at 1914, [] Initiate with 1 mg every 3 hours prn moderate to severe pain. [] For unrelieved pain, may give additional 0.5 mg within 30 minutes of initial dose. [] If pain is RELIEVED after repeat dose, change to 1.5 mg every 3 hours prn moderate to severe pain. [] If pain is UNrelieved after repeat dose or patient requires dose reduction, call physician. [] May use IV for breakthrough or if unable to tolerate oral route. Start: 09-26-2023 End: 09-26-2023 0.25 mg, Intravenous, Every 5 min PRN, Pain, Starting on Kristal 09/26/23 at 1403, For 6 doses, PACU (only), Give if fentanyl not effective or not ordered. Do not give more than 1.5 mg total. Start: 07-01-2019 End: 07-01-2019 HYDROmorphone (DILAUDID) inj ection 1 mg HYDROmorphone (DILAUDID) 0.5 mg/mL injection 0.5-1.5 mg (1 source) Start: 05-26-2019 End: 05-27-2019 take 0.5-1.5 mg intravenous route every three hours as needed 0.5-1.5 mg, Intravenous, Every 3 hours PRN, moderate to severe pain, Starting Sat05/26/19 at 1127 [] Initiate with 1 mg every 3 hours prn moderate to severe pain. [] For unrelieved pain, may give additional 0.5 mg within 30 minutes of initial dose. [] If pain is RELIEVED after repeat dose, change to 1.5 mg every 3 hours prn moderate to severe pain. [] If pain is UNrelieved after repeat dose or patient requires dose reduction, call physician. [] May use IV for breakthrough or if unable to tolerate oral route. ibuprofen 800 mg oral tablet (20 sources) Nonsteroidal Anti-inflammatory Drug Start: 06-22-2023 End: 06-27-2023 take 1 tablet by mouth four times daily as needed for pain Ibuprofen (Ibu) 800 MG Tablet Discontinued 800 MG PO Four Times a Day as needed for dental pain June 22, 2023 1:00am June 27, 2023 6:58pm Start: 07-10-2019 End: 07-13-2019 ibuprofen (ADVIL,MOTRIN) tab let 600 mg Start: 06-11-2019 End: 06-20-2019 ibuprofen (ADVIL,MOTRIN) 100 mg/5 mL suspension 400 mg insulin lispro 100 unt/ml injectable solution (1 source) Insulin Analog Start: 09-27-2023 End: 10-02-2023 insulin lispro (AdmeLOG,HumaLOG) injection 0-30 Units iopamidol (ISOVUE-300) 61 % injection 50 mL (1 source) Start: 06-30-2019 End: 06-30-2019 iopamidol (ISOVUE-300) 61 % injection 50 mL 1 ml ketorolac tromethamine 30 mg/ml injection (1 source) Nonsteroidal Anti-inflammatory Drug, Cyclooxygenase Inhibitor Start: 06-27-2019 End: 06-27-2019 ketorolac (TORADOL) injection 15 mg Start: 06-27-2019 End: 06-27-2019 ketorolac (TORADOL) injectio n 15 mg labetalol hydrochloride 5 mg/ml injectable solution (1 source) beta-Adrenergic Salazar Start: 05-26-2019 End: 06-11-2019 take 10 mg intravenous route every two hours as needed labetalol (NORMODYNE,TRANDATE) injection 10 mg lidocaine HCL (UROJET/GLYDO) 2 % applicator 1 Application (1 source) Start: 09-26-2023 End: 10-02-2023 lidocaine HCL (UROJET/GLYDO) 2 % applicator 1 Application magnesium oxide 400 mg oral tablet (1 source) Start: 07-16-2019 End: 07-16-2019 magnesium oxide (MAG-OX) tablet 200 mg 500 ml magnesium sulfate 40 mg/ml injection (2 sources) Start: 06-01-2019 End: 06-07-2019 magnesium sulfate infusion 20 gm/ 500mL 500 ml mannitol 200 mg/ml injection (1 source) Osmotic Diuretic Start: 05-26-2019 End: 05-26-2019 mannitol 20 % IVPB 50 g melatonin 3 mg oral tablet (20 sources) Start: 09-26-2023 End: 10-02-2023 take 6 mg by mouth once daily 6 mg, Oral, Nightly, First dose on Kristal 09/26/23 at 2100 Start: 02-08-2022 End: 10-28-2024 take 1 tablet by mouth at bedtime Melatonin 5 MG Tablet Discontinued 5 MG PO Bedtime February 08, 2022 12:00am October 28, 2024 2:30pm Start: 08-27-2019 End: 11-13-2019 take 1 tablet by mouth once daily as needed melatonin 5 mg Tab Take 1 (one) tablet (5 mg total) by mouth nightly as needed (insomnia) . 30 tablet 0 10/14/2019 Active take 2 tablets by mo uth once daily melatonin 3 mg Tab Take 2 (two) tablets (6 mg total) by mouth nightly . 0 Active 1 ml meperidine hydrochloride 50 mg/ml injection (4 sources) Opioid Agonist Start: 05-31-2019 End: 06-04-2019 take 25 mg intravenous route every three hours as needed meperidine (DEMEROL) injection 25 mg Start: 05-26-2019 End: 05-26-2019 meperidine (DEMEROL) injecti on 25 mg Start: 05-26-2019 End: 05-26-2019 meperidine (DEMEROL) 50 mg/m L injection - ADS Override Pull 5 ml midazolam 1 mg/ml injection (3 sources) Benzodiazepine Start: 06-09-2019 End: 07-03-2019 midazolam (VERSED) injection Start: 06-04-2019 End: 06-11-2019 take 2 mg intravenous route every two hours as needed midazolam (VERSED) injection 2 mg Start: 06-04-2019 End: 06-03-2019 midazolam (VERSED) injection 4 mg naloxone (NARCAN) injection 0.1 mg (2 sources) Start: 09-26-2023 End: 10-02-2023 naloxone (NARCAN) injection 0.1 mg Start: 05-26-2019 End: 10-14-2019 naloxone (NARCAN) injection 0.1 mg ondansetron (ZOFRAN-ODT) disintegrating tablet 4 mg (1 source) Start: 09-26-2023 End: 10-02-2023 take 1 tablet by mouth every six hours as needed for nausea and vomiting ondansetron (ZOFRAN-ODT) disintegrating tablet 4 mg oxyCODONE hydrochloride 5 mg oral tablet (20 sources) Opioid Agonist Start: 09-26-2023 End: 10-02-2023 take 5-10 mg by mouth every four hours as needed 5-10 mg, Oral, Every 4 hours PRN, moderate to severe pain, Starting on [facility] 09/26/23 at 1914, [] Initiate with 5 mg oral every 4 hours prn moderate to severe pain. [] For unrelieved pain, may repeat 5 mg oral dose within 60 minutes of initial dose. [] If pain is RELIEVED after repeat dose, change to 10 mg oral every 4 hours prn moderate to severe pain. [] If pain is UNrelieved after repeat dose, or patient requires dose reduction, call physician. Start: 02-08-2022 End: 02-10-2023 take 1 tablet by mouth every twelve hours as needed for pain Oxycodone Hcl (Roxicodone) 5 MG Tablet Discontinued 5 MG PO Q12H as needed for Mod(4-6) To Severe(7-10) Pain February 08, 2022 12:00am February 10, 2023 6:32pm Start: 05-25-2021 oxyCODONE 5 mg oral tablet ( IMMEDIATE release ) Dose : 5 mg = 1 tab(s), Oral, q6h, PRN as needed for pain, 0 Refill(s) Start Date: 05/25/21 Status: Ordered Start: 06-29-2019 End: 10-17-2019 take 1 tablet by mouth every six hours as needed oxyCODONE (ROXICODONE) 5 MG immediate release tablet Indications: Left hip pain Take 1 (one) tablet (5 mg total) by mouth every 6 (six) hours as needed . 12 tablet 0 10/14/2019 10/14/2019 Discontinued Start: 06-16-2019 End: 06-20-2019 oxyCODONE (ROXICODONE) immed iate release tablet 2.5 mg Start: 05-30-2019 End: 06-10-2019 oxyCODONE (ROXICODONE) solut ion 5-10 mg Start: 05-26-2019 End: 05-30-2019 take 5-10 mg by mouth every four hours as needed oxyCODONE (ROXICODONE) immediate release tablet 5-10 mg microencapsulated potassium chloride 20 meq extended release oral tablet (20 sources) Start: 09-29-2023 End: 09-29-2023 potassium chloride SA (K-DUR,KLOR-CON) CR tablet 40 mEq Start: 09-28-2023 End: 09-28-2023 potassium chloride SA (K-DUR ,KLOR-CON) CR tablet 20 mEq Start: 02-10-2023 End: 06-25-2023 Potassium Chloride (Kdur 20 Meq Tablet) 20 MEQ Tablet Discontinued 10 MEQ PO Daily February 10, 2023 8:42pm June 25, 2023 7:49am Start: 02-16-2022 End: 02-10-2023 Potassium Chloride (Kdur 20 Meq Tablet) 20 MEQ Tablet Discontinued 20 MEQ PO Two Times A Day 6 3 February 16, 2022 12:00am February 10, 2023 8:42pm Start: 07-16-2019 End: 07-16-2019 potassium chloride (KAYCIEL) 20 mEq/15 mL solution 20 mEq Start: 06-06-2019 End: 06-06-2019 potassium chloride (KAYCIEL) 20 mEq/15 mL solution 20 mEq Start: 06-04-2019 End: 06-04-2019 potassium chloride (KAYCIEL) 20 mEq/15 mL solution 20 mEq Start: 06-04-2019 End: 06-04-2019 potassium chloride (KAYCIEL) 20 mEq/15 mL solution 40 mEq Start: 06-03-2019 End: 06-04-2019 potassium chloride (KAYCIEL) 20 mEq/15 mL solution 40 mEq Start: 06-01-2019 End: 06-01-2019 potassium chloride (KAYCIEL) 20 mEq/15 mL solution 20 mEq Start: 05-27-2019 End: 06-01-2019 potassium chloride (KAYCIEL) 20 mEq/15 mL solution 20 mEq End: 09-27-2023 take 1 capsule by mouth once daily potassium chloride (MICRO-K) 10 MEQ CR capsule Take 1 (one) capsule (10 mEq total) by mouth daily . 0 09/27/2023 Discontinued (Error) potassium phosphate 15 mmol in dextrose (D5W) 5% 250 mL IVPB (1 source) Start: 09-28-2023 End: 09-28-2023 potassium phosphate 15 mmol in dextrose (D5W) 5% 250 mL IVPB potassium phosphate 30 mmol in sodium chloride 0.9 % (NS) 250 mL IVPB (2 sources) Start: 05-29-2019 End: 05-29-2019 potassium phosphate 30 mmol in sodium chloride 0.9 % (NS) 250 mL IVPB Start: 05-28-2019 End: 05-28-2019 potassium phosphate 30 mmol in sodium chloride 0.9 % (NS) 250 mL IVPB potassium, sodium phosphates (PHOS-NAK) 280-160-250 mg packet 1 packet (1 source) Start: 05-29-2019 End: 05-30-2019 potassium, sodium phosphates (PHOS-NAK) 280-160-250 mg packet 1 packet predniSONE 20 mg oral tablet (1 source) Start: 07-10-2019 End: 07-14-2019 predniSONE (DELTASONE) tablet 40 mg 10 ml propofol 10 mg/ml injection (2 sources) General Anesthetic Start: 05-31-2019 End: 06-09-2019 propofol (DIPRIVAN) infusion Start: 05-25-2019 End: 05-28-2019 propofol (DIPRIVAN) infusion rocuronium bromide 10 mg/ml injectable solution (1 source) Nondepolarizing Neuromuscular Salazar Start: 06-09-2019 End: 07-03-2019 rocuronium (ZEMURON) injection sennosides, long-term 8.6 mg oral tablet (20 sources) Start: 02-08-2022 End: 02-10-2023 take 2 tablets by mouth twice daily Sennosides (Angela-Sue) 8.6 MG Tablet Discontinued 2 TAB PO Two Times A Day February 08, 2022 12:00am February 10, 2023 6:31pm Start: 10-14-2019 End: 11-13-2019 take 2 tablets by mouth twice daily senna (SENOKOT) 8.6 mg tablet Take 2 (two) tablets (17.2 mg total) by mouth 2 (two) times a day . 120 tablet 0 10/14/2019 11/13/2019 Active Start: 08-14-2019 End: 10-14-2019 senna (SENOKOT) tablet 17.2 mg Start: 08-11-2019 End: 08-14-2019 senna (SENOKOT) tablet 8.6 m g Start: 07-24-2019 End: 08-11-2019 sennosides (SENNA) 8.8 mg/5 mL oral solution 8.8 mg simethicone 180 mg oral capsule (20 sources) Start: 06-22-2023 End: 09-27-2023 take 1 capsule by mouth three times daily Simethicone (Gas-X Ultra Strength) 180 MG Capsule Discontinued 180 MG PO Three Times A Day June 22, 2023 1:00am June 27, 2023 6:58pm 1000 ml sodium chloride 9 mg/ml injection (12 sources) Start: 09-26-2023 End: 09-28-2023 take 75 mL intravenously every hour 75 mL/hr, Intravenous, Continuous, Starting on Kristal 09/26/23 at 2000 Start: 09-26-2023 End: 10-02-2023 sodium chloride (PF) (NS) fl ush 5 mL Start: 09-26-2023 End: 09-26-2023 sodium chloride 0.9% (NS) Start: 06-09-2019 End: 07-03-2019 sodium chloride 0.9% (NS) adrianna malina Start: 06-01-2019 End: 06-03-2019 sodium chloride tablet 1 g Start: 05-28-2019 End: 05-31-2019 sodium chloride tablet 2 g Start: 05-26-2019 End: 05-26-2019 take 50 mL intravenous route every hour 50 mL/hr, Intravenous, Continuous, Starting Sat05/26/19 at 0200 Start: 05-26-2019 End: 05-28-2019 take 75 mL intravenous route every hour 75 mL/hr, Intravenous, Continuous, Starting Sat05/26/19 at 1215 Start: 05-26-2019 End: 05-26-2019 sodium chloride 0.9% (NS) Start: 05-26-2019 End: 05-30-2019 sodium chloride (HYPERTONIC) 3 % infusion Start: 05-25-2019 End: 10-14-2019 sodium chloride (PF) (NS) fl ush 5 mL sulfamethoxazole 800 mg / trimethoprim 160 mg oral tablet (20 sources) Dihydrofolate Reductase Inhibitor Antibacterial, Sulfonamide Antimicrobial Start: 11-17-2022 End: 02-10-2023 take 1 tablet by mouth twice daily Sulfamethoxazole/Trimethoprim (Bactrim Ds Tablet) 1 EACH Tablet Discontinued 2 EACH PO Two Times A Day November 17, 2022 12:00am February 10, 2023 6:30pm tetracaine hydrochloride 5 mg/ml ophthalmic solution (1 source) Shandra Local Anesthetic Start: 10-22-2024 End: 10-22-2024 1 drop, Left Eye, NOW, 1 dos e, On Kristal 10/22/24 at 1615 traMADol hydrochloride 50 mg oral tablet (2 sources) Opioid Agonist Start: 06-28-2019 End: 06-28-2019 traMADol (ULTRAM) tablet 50 mg Start: 06-12-2019 End: 06-20-2019 take 1 tablet by mouth every six hours as needed traMADol (ULTRAM) tablet 50 mg Valproate (20 sources) Mood Stabilizer, Anti-epileptic Agent Start: 02-10-2023 Divalproex Sodium (Depakote Sprinkle 125 Mg Capsule) 125 MG Capsule Active 250 MG PO Two Times A Day February 09, 2023 11:00pm Start: 02-10-2023 End: 06-25-2023 take 1 tablet by mouth three times daily Divalproex Sodium (Divalproex Sodium Er) 500 MG Tab.Er.24h Discontinued 500 MG PO Three Times A Day February 10, 2023 12:00am June 25, 2023 7:55am Start: 02-10-2023 End: 02-10-2023 Depakote 250 mg ER Tablet Discontinued February 09, 2023 11:00pm February 10, 2023 7:25pm Start: 02-10-2023 End: 02-10-2023 Depakote 250 mg ER Tablet Discontinued February 10, 2023 12:00am February 10, 2023 8:25pm take 2 capsules by m outh twice daily divalproex DR (DEPAKOTE) 125 MG EC tablet Take 125 mg by mouth two times per day. 2 capsules Active take 1 tablet by carmelo th once daily divalproex DR (DEPAKOTE) 500 MG EC tablet Take 500 mg by mouth daily. Active End: 09-27-2023 take 4 capsules by mouth three times daily divalproex (Depakote Sprinkles) 125 mg delayed release (DR) capsule Take 4 (four) capsules (500 mg total) by mouth 3 (three) times a day . 0 09/27/2023 Discontinued (Error) vancomycin (VANCOCIN) 1500 m g in sodium chloride 0.9% (NS) 500 mL IVPB (3 sources) Start: 09-27-2023 End: 10-01-2023 vancomycin (VANCOCIN) 1500 m g in sodium chloride 0.9% (NS) 500 mL IVPB Start: 09-26-2023 End: 09-27-2023 take 1500 mg intravenously every twenty-four hours vancomycin (VANCOCIN) 1500 mg in sodium chloride 0.9% (NS) 500 mL IVPB Start: 09-26-2023 End: 09-26-2023 vancomycin (VANCOCIN) 1500 m g in sodium chloride 0.9% (NS) 500 mL IVPB Problems Active Problems Problem Classification Problem Date Documented Da te Episodic/Chronic Abdominal pain (20 sources) Lower abdominal pain; Translations: [Lower abdominal pain, unspecified] 02-16-2022 Episodic Acute cerebrovascular disease (19 sources) Cerebrovascular accident; Translations: [Cerebrovascular accident due to thrombus of right middle cerebral artery] Onset: 9 05-26-2019 Chronic Acute cerebrovascular disease (2 sources) Cerebrovascular accident due to right carotid artery occlusion; Translations: [Cerebrovascular accident due to thrombus of right carotid artery] Adjustment disorders (14 sources) Adjustment disorder; Translations: [Adjustment disorder, unspecified] Onset: 0 08-17-2019 Chronic Anal and rectal conditions (20 sources) Proctitis; Translations: [Other specified diseases of anus and rectum] 02-16-2022 Episodic Anxiety disorders (20 sources) Anxiety disorder; Translations: [Anxiety disorder, unspecified] Onset: 1 Chronic Aortic; peripheral; and visceral artery aneurysms (1 source) Dissection of carotid artery; Translations: [Carotid artery dissection (HCC)] Biliary tract disease (20 sources) Acute gangrenous cholecystitis; Translations: [Acute cholecystitis] 02-16-2022 Episodic Diabetes mellitus without complication (1 source) Hyperglycemia, unspecified; Translations: [Hyperglycemia, unspecified] Onset: 5 Episodic Diseases of white blood cells (20 sources) Leukocytosis; Translations: [Elevated white blood cell count, unspecified] Onset: 3 02-16-2022 Chronic Disorders of teeth and jaw (1 source) Dental caries, unspecified; Translations: [Dental caries, unspecified] Onset: 5 Episodic Epilepsy; convulsions (1 source) Epilepsy, unspecified, not intractable, without status epilepticus; Translations: [Epilepsy, unspecified, not intractable, without status epilepticus] Onset: 5 Chronic Epilepsy; convulsions (2 sources) Seizure; Translations: [Unspecified convulsions] Onset: 1 Episodic Esophageal disorders (20 sources) Gastroesophageal reflux disease; Translations: [Gastro-esophageal reflux disease without esophagitis] 06-10-2023 Chronic Essential hypertension (20 sources) Essential hypertension; Translations: [Essential (primary) hypertension] Onset: 1 Chronic Fluid and electrolyte disorders (20 sources) Lactic acidosis; Translations: [Acidosis] 02-08-2022 Episodic Hyperplasia of prostate (20 sources) Benign prostatic hyperplasia; Translations: [Benign prostatic hyperplasia without lower urinary tract symptoms] 06-26-2023 Chronic Immunizations and screening for infectious disease (1 source) Encounter for immunization; Translations: [Encounter for immunization] Onset: 5 Episodic Late effects of cerebrovascular disease (1 source) 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; Translations: [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] Onset: 5 Chronic Mood disorders (20 sources) Depressive disorder; Translations: [Depression] 02-10-2023 Chronic Nonspecific chest pain (20 sources) Chest pain; Translations: [Chest pain, unspecified] 02-10-2023 Episodic Other acquired deformities (14 sources) Skull finding; Translations: [Other acquired deformity of head] Onset: 3 06-28-2023 Episodic Other acquired deformities (2 sources) Other acquired deformity of head; Translations: [Other acquired deformity of head] Onset: 4 Episodic Other aftercare (1 source) 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; Translations: [Other chcf (current) drug therapy] Onset: 5 Episodic Other circulatory disease (20 sources) History of cerebrovascular accident; Translations: [Personal history of transient ischemic attack (TIA), and cerebral infarction without residual deficits] 02-08-2022 Episodic Other circulatory disease (4 sources) Personal history of transient ischemic attack (TIA), and cerebral infarction without residual deficits; Translations: [Personal history of transient ischemic attack (TIA), and cerebral infarction without residual deficits] 02-16-2022 Episodic Other connective tissue disease (1 source) Pain in left lower limb; Translations: [Left leg pain] Episodic Other gastrointestinal disorders (1 source) Oropharyngeal dysphagia; Translations: [Oropharyngeal dysphagia] Episodic Other gastrointestinal disorders (10 sources) Constipation, unspecified; Translations: [Constipation, unspecified] Onset: 3 06-25-2023 Episodic Other gastrointestinal disorders (2 sources) Dysphagia, unspecified; Translations: [Dysphagia, unspecified] Onset: 9 Episodic Other liver diseases (1 source) Increased aspartate transaminase level; Translations: [Elevation of levels of liver transaminase levels] Onset: 1 Episodic Other liver diseases (20 sources) Enzyme level - finding; Translations: [Elevated transaminase measurement] 02-16-2022 Episodic Other liver diseases (1 source) Abnormal levels of other serum enzymes; Translations: [Abnormal levels of other serum enzymes] Onset: 5 Episodic Other lower respiratory disease (1 source) Dyspnea; Translations: [Shortness of breath] 10-02-2024 Episodic Other lower respiratory disease (1 source) Shortness of breath; Translations: [Shortness of breath] Onset: 5 Episodic Other male genital disorders (1 source) Erectile dysfunction due to arterial insufficiency; Translations: [Erectile dysfunction due to arterial insufficiency] Onset: 5 Chronic Other nervous system disorders (1 source) Disorder of brain; Translations: [Acute encephalopathy] Chronic Other nervous system disorders (2 sources) Other symptoms and signs involving cognitive functions and awareness; Translations: [Other symptoms and signs involving cognitive functions and awareness] Onset: 0 Episodic Other non-traumatic joint disorders (2 sources) Pain in left hip; Translations: [Pain in left hip] Onset: 9 Episodic Other nutritional; endocrine; and metabolic disorders (20 sources) Obesity; Translations: [Obesity, unspecified] 02-08-2022 Chronic Other nutritional; endocrine; and metabolic disorders (4 sources) Obesity, unspecified; Translations: [Obesity, unspecified] 02-16-2022 Chronic Other nutritional; endocrine; and metabolic disorders (4 sources) Adult failure to thrive syndrome; Translations: [Adult failure to thrive] 10-26-2024 Episodic Other nutritional; endocrine; and metabolic disorders (4 sources) Adult failure to thrive; Translations: [Adult failure to thrive] 10-28-2024 Episodic Other screening for suspected conditions (not mental disorders or infectious disease) (20 sources) Serum creatinine raised; Translations: [Other specified abnormal findings of blood chemistry] Onset: 5 02-16-2022 Episodic Other skin disorders (20 sources) Excessive sweating; Translations: [Generalized hyperhidrosis] 06-25-2023 Episodic Other skin disorders (12 sources) Generalized hyperhidrosis; Translations: [Generalized hyperhidrosis] 06-25-2023 Episodic Pneumonia (except that caused by tuberculosis or sexually transmitted disease) (20 sources) Community acquired pneumonia; Translations: [Pneumonia, unspecified organism] 02-08-2022 Episodic Residual codes; unclassified (1 source) Dependence on wheelchair; Translations: [Dependence on wheelchair] Onset: 1 Chronic Residual codes; unclassified (1 source) Past history of procedure; Translations: [Other specified postprocedural states] Onset: 1 Episodic Residual codes; unclassified (2 sources) Other specified postprocedural states; Translations: [Other specified postprocedural states] Onset: 4 Episodic Residual codes; unclassified (8 sources) Other specified health status; Translations: [Loss of functional autonomy in activities of daily living (ADLs)] 10-26-2024 Episodic Respiratory failure; insufficiency; arrest (adult) (1 source) Respiratory failure; Translations: [Respiratory failure, unspecified chronicity, unspecified whether with hypoxia or hypercapnia (HCC)] Episodic Septicemia (except in labor) (20 sources) Sepsis; Translations: [Sepsis, unspecified organism] 02-08-2022 Episodic Skin and subcutaneous tissue infections (20 sources) Abscess; Translations: [Cutaneous abscess, unspecified] 11-17-2022 Episodic Superficial injury; contusion (2 sources) Abrasion of cornea of right eye; Translations: [Injury of conjunctiva and corneal abrasion without foreign body, right eye, initial encounter] Onset: 5 10-22-2024 Episodic Syncope (20 sources) Syncope; Translations: [Syncope and collapse] 02-16-2022 Episodic Unclassified (2 sources) Post-op Onset: 4 Unclassified (1 source) Abrasion of cornea of right eye 10-22-2024 Past or Other Problems Problem Classification Problem Date Documented Da te Episodic/Chronic Gastritis and duodenitis (20 sources) Acute hemorrhagic gastritis; Translations: [Acute gastritis with bleeding] Onset: 06-07-2023 06-26-2023 Episodic Nausea and vomiting (20 sources) Nausea and vomiting; Translations: [Nausea with vomiting, unspecified] Onset: 06-07-2023 06-25-2023 Episodic Other gastrointestinal disorders (12 sources) Dysphagia; Translations: [Dysphagia, unspecified] Onset: 06-08-2019 06-08-2019 Episodic Other gastrointestinal disorders (20 sources) Constipation; Translations: [Constipation, unspecified] Onset: 06-07-2023 06-25-2023 Episodic Other nervous system disorders (12 sources) Impaired cognition; Translations: [Other symptoms and signs involving cognitive functions and awareness] Onset: 08-17-2019 08-17-2019 Episodic Other non-traumatic joint disorders (12 sources) Hip pain; Translations: [Pain in left hip] Onset: 06-29-2019 06-29-2019 Episodic Urinary tract infections (20 sources) Urinary tract infectious disease; Translations: [Urinary tract infection, site not specified] Onset: 06-07-2023 06-26-2023 Episodic Viral infection (2 sources) Disease caused by 2019-nCoV; Translations: [COVID-19] Onset: 05-25-2021 Results Test Name Value Interpretation Reference Range Facility VITAMIN D, 25 HYDROXYon 08-0 VitD 33.40 ng/mL Normal 30.00 - 100 [facility] Comment on above: Result Comment: 25-O HD3 indicates both endogenous production and supplementation. 25-OHD2 is an indicator of exogenous sources, such as diet or supplementation. Therapy is based on measurement of Total 25-OHD, with levels <20 ng/mL indicative of Vitamin D deficiency, while levels between 20 ng/mL and 30 ng/mL suggest insufficiency. Optimal levels are >=30ng/mL. Vitamin D, 25-OH D3 Not Established Vitamin D, 25-OH D2 Not Established Performed By: #### 2 [id number] #### [facility],[address] [place], [place] [id number] Gastroenterology Visit Repor ton 01-15-[address] [facility] [address] [place] [address] OFFICE VISIT Date of Service: 01/15/25 MR#: [id number] Acct: [id number] Name: LISAJOHNATHAN Rep #: [id number] : 1975 Provider: MARIAN Esposito Age/Sex: 50/M [place] [facility] Status: Signed Intake Intake Visit Reasons: PRE COLONOSCOPY Chief Complaint: screening colonoscopy Medications ???Medication ???Instructions ???Recorded ???Confirmed ???Type amlodipine 10 mg tablet 10 mg PO QDAY 01/15/25 01/15/25 Hi story atorvastatin 40 mg tablet 40 mg PO QDAY 01/15/25 01/15/25 Hi story baclofen 10 mg tablet mg PO 01/15/25 01/15/25 History finasteride 5 mg tablet 5 mg PO QDAY 01/15/25 01/15/25 His tory levetiracetam 500 mg tablet 500 mg PO BID 01/15/25 01/15/25 Hi story ondansetron HCl 4 mg tablet mg PO 01/15/25 01/15/25 History tamsulosin 0.4 mg capsule mg PO 01/15/25 01/15/25 History trazodone 50 mg tablet 25 mg PO QHS PRN 01/15/25 01/15/25 History HPI HPI Chief Complaint: screening colonoscopy Details: JOHNATHAN GONZALEZ, is a 50 M who presents to the office today for establishment with [facility]. Pt referred for screening colonoscopy. Pt with PMHx of CVA and hemiparesis (wheelchair bound) and resides at [facility]. No hx of screening colonoscopy. He denies constipation, diarrhea, blood in stool, abd pain, n/v or heartburn. He has daily bm without straining. Pt notes his mother wanted him to have a colonoscopy due to family hx of colon cancer but he is unsure what family member had it . ROS Const Constitutional: No anorexia, fatigue, fever(s), weight change or sleep problems Eyes Eyes: No change in vision ENT ENT: No abnormal hearing, difficulty swallowing, mouth lesions, tongue swelling or throat swelling Resp Respiratory: No cough or shortness of breath Cardio Cardiology: No chest pain at rest, chest pain with exertion, shortness of breath or dyspnea on exertion Gastro GI: No difficulty swallowing Genitourinary Male: No difficulty urinating or burning urination Musc Musculoskeletal: No joint pain, joint swelling, muscle weakness or decreased muscle mass Skin Skin: No hair loss in leg, yellowing of the eye, itchy eyes, rash, skin ulcer or skin swelling Neuro Neurology: Positive for paralysis and seizures; No abnormal hearing, abnormal movements, confusion, unsteady gait/balance or memory loss Psych Psychiatric: No anxiety, No confusion and No memory loss Endo Endocrine: No fatigue or weight change Aller/Imm Allergy/Immunologic: No itchy eyes, throat swelling or tongue swelling Chance/Lymp Hematologic/Lymphatic: No easy bleeding, easy bruising or enlarged lymph nodes Exam Const General: cooperative and comfortable HENMT Head: normal to inspection Eyes General: appearance normal, both eyes and all related structures Neck Neck: normal visual inspection Chest Chest palpation inspection: normal inspection of the chest Resp Effort Inspection: normal respiratory effort Cardio Rate: regular rate Rhythm: regular rhythm GI Inspection: normal to inspection Auscultation: normal bowel sounds Palpation: soft and nontender Assessment and Plan Assessment and Plan (1) Screening for malignant neoplasm of colon: Status: Acute Plan: Johnathan is a 50 yo male pt with PMhx of CVA and hemiparesis who resides at a [facility] facility here today for evaluation for screening colonoscopy. Pt has no hx of screening colonoscopy. He endorses a family hx of colon cancer but unsure of relation to him. He denies all GI symptoms. Procedure was explained to pt and he was agreeable to be scheduled for this. -Colonoscopy -f.u after procedure Coding Level of Care Code Off vis,new,level 3 Diagnoses Screening for malignant neoplasm of colon Z12.11 01/15/25 0935 Date Jenn Gerber Signature: Date (if applicable) CC: Normal [facility] PROGRESS NOTEon 11-28-2024 PROGRESS NOTE [place] [id number] HEALTH INFORMATION MANAGEMENT PROGRESS NOTE : [id number] Signed Patient: JOHNATHAN GONZALEZ Acct:[id number] MRUN: [id number] : 1975 Sex: M Loc: 4TH FLOOR ADM Date: 10/26/24 Room/Bed: 432-B DISC Date: 10/28/24 Subjective Assessment Date Of Service: 10/27/24 Events Since Admission: JOHNATHAN GONZALEZ was admitted to MEDICAL SURGICAL service into room 432 on 10/26/24 at 17:14 for complaints of FAILURE TO THRIVE CHRONIC LEFT HEMIPLEGIA UNABLE. The patient's laboratory testing and diagnostic testing has been reviewed. Status: Condition Unchanged, New Labs Ordered, New Testing Ordered Subjective Note: Patient endorses severe generalized weakness, loss of appetite. I discussed with the patient pT recommendation to have a placement too SNF. Patient is weak to be placed from bed to the chair. Condition: Fair General: Denies: Fever, Chills, Sweats Respiratory: Denies: Cough, Shortness of Breath, Wheezing Cardiovascular: Denies: Chest Pain-Sharp, Chest Pain-Heavy, Orthopnea Gastrointestinal: Denies: Nausea, Vomiting, Abdominal Pain Genitourinary: Denies: Dysuria, Frequency, Incontinence Musculoskeletal: Denies: Neck Pain, Shoulder Pain, Arm Pain Neurological: Denies: Weakness, Numbness, Incoordination Objective Findings Sepsis focused exam performed?: Yes Review of Systems Completed?: Yes General: Yes: Alert, Oriented, No acute distress. No: Confused, Cooperative/Pleasant Neck: Yes: Supple. No: JVD Lungs: Yes: Clear to auscultation, Unlabored, Wheezing Cardiovascular: Yes: Regular rate, Normal S2, Normal S1, No murmurs Abdomen: Yes: Bowel Sounds X4, Soft, Large/Obese, No Tenderness. No: Distended, Ascitic, Rigid Extremities: Yes: Normal pulses. No: Clubbing, Cyanosis, Edema, Bilateral Leg Edema Skin: No: Rashes, Skin Breakdown, Significant lesions Neurological: Yes: Speech Clear, Normal tone, Cognitive Ability Intact Psych/Mental Status: Yes: Mental status NL, Mood Appropriate Vitals and I O: Vital Signs Temperature 97.0 F L 10/27/24 23:26 Pulse Rate 70 10/27/24 23:26 Respiratory Rate 16 10/27/24 23:26 Blood Pressure 163/106 H 10/27/24 23:26 O2 Sat by Pulse Oximetry(%) 96 10/27/24 23:26 FiO2 - Manual Entry Intake Output 10/27/24 10/27/24 10/28/24 11:59 23:59 11:59 Intake Total 360 600 Output Total 200 500 Balance 160 100 Weight 191 lb 14.4 oz Intake: Intake ml 360 600 Output: Output ml 200 500 Urine 200 500 Other: Output stool Nonnumeric/ Comment Stool sm soft Laboratory-Last 48 hrs: 10/27/24 05:22 10/27/24 05:22 Laboratory Results-last 24 hrs 10/26/24 12:10: Potassium 3.2 L, Glucose 122 H, Alkaline Phosphatase 116 H, Albumin 2.5 L, Albumin/Globulin Ratio 0.7 L 10/26/24 12:10: Neut % (Auto) 77.4 H, Lymph % (Auto) 14.4 L, Absolute Neuts (auto) 6.78 H 10/26/24 15:48: Urine Protein 15 A, Urine Bilirubin 1 A, Ur Leukocyte Esterase Trace A 10/27/24 05:22: Potassium 3.1 L, Alkaline Phosphatase 114 H, Albumin 2.4 L, Albumin/Globulin Ratio 0.6 L 10/27/24 05:22: Absolute Neuts (auto) 4.88 H 10/27/24 05:30: Urine Protein 15 A, Urine Ketones 5 A, Urine Bilirubin 1 A Radiology-Impressions: See radiology reports in electronic medical record. Impressions - Problems (1) Acute cystitis Status: Acute (2) Adult failure to thrive Status: Acute Priority: High (3) Loss of functional autonomy in activities of daily living (ADLs) Status: Acute Priority: High (4) s/p CVA with left-sided hemparesis Status: Acute Plan/Treatment Plan: 1. Failure to thrive /unable to perform ADLs. S/p CVA in 2019 with left-sided hemiparesis Patient has left-sided hemiparesis from CVA in 2019. His albumin is low at 2.5. - physical therapy recommendations for outpatient therapy - high-protein diet. 1a. Acute UTI -Pt complaints on dysuria and increased urinary frequency -Pending UCs -Continue ceftriaxone 1 gm IV 2. Hypokalemia, resolved Potassium 3.2>>3.6 -daily re-evaluation of CMPs 3. GERD/GI prophylaxis -on Protonix 40 mg p.o. daily from home. 4. DVT PPXs -wearing Kofi hurtado received Lovenox 40 mg subQ daily New Orders: New Orders-Lab 10/28/24 04:00 CBC w/Auto Differential [HEM] DAILY@0400 Comprehensive Metabolic Panel [CHM] DAILY@0400 10/29/24 04:00 CBC w/Auto Differential [HEM] DAILY@0400 Comprehensive Metabolic Panel [CHM] DAILY@39910/30/24 04:00 CBC w/Auto Differential [HEM] DAILY@0400 Comprehensive Metabolic Panel [CHM] DAILY@39910/31/24 04:00 CBC w/Auto Differential [HEM] DAILY@0400 Comprehensive Metabolic Panel [CHM] DAILY@0400 Medications 10/27/24 16:00 Fluticasone Propionate [Flonase 16 gm Nasal [place]] 0 each ANAND DAILY Gian (more content not included)... Normal [facility] BMP with eGFRon 11-02-2024 AGE 49 years Normal [facility] Comment on above: Performed By: #### 2 [id number] #### [facility],[address] [place] [address]008 Anion gap [Moles/Vol] 11 mmol/L Normal 10 - 20 [facility] Comment on above: Performed By: #### 2 [id number] #### [facility],[address] [place] [address]59 BMP with eGFR Normal [facility] Comment on above: Result Comment: BASI C METABOLIC PANEL Performed By: #### 2 [id number] #### [facility],[address] [place] [address]9599 Calcium [Mass/Vol] 9.0 mg/dL Normal 8.5 - 10.1 [facility] Comment on above: Performed By: #### 2 [id number] #### [facility],[address] [place] [address]9875 Chloride [Moles/Vol] 106 mmol/L Normal 98 - 107 [facility] Comment on above: Performed By: #### 2 [id number] #### [facility],[address] [place] [address] 52946 CO2 [Moles/Vol] 30.9 mmol/L Normal 21.0 - 32.0 [facility] Comment on above: Performed By: #### 2 [id number] #### [facility],[address] [place], [place] [id number] Creatinine [Mass/Vol] 1.21 mg/dL Normal 0.70 - 1.30 [facility] Comment on above: Performed By: #### 2 [id number] #### [facility],[address] [place], [place] [id number] GFR/1.73 sq M.predicted among non-blacks MDRD (S/P/Bld) [Vol rate/Area] mL/min/{1.73_m2} Normal 60 - 999 [facility] Comment on above: Performed By: #### 2 [id number] #### [facility],[address] [place] [address] Result Comment: ACCO RDING TO THE NATIONAL KIDNEY DISEASE EDUCATION PROGRAM(NKDE), A NORMAL eGFR IS A VALUE GREATER THAN OR EQUAL TO 60 ML/MIN/1.73 SQ METERS. CHRONIC KIDNEY DISEASE: <60mL/MIN/1.73 SQ METERS KIDNEY FAILURE: <15mL/MIN/1.73 SQ METERS THIS TEST SHOULD ONLY BE USED FOR PATIENTS 18 YEARS OF AGE AND OLDER. Glucose [Mass/Vol] 107 mg/dL High 74 - 106 [facility] Comment on above: Performed By: #### 2 [id number] #### [facility],[address] [place], [place] [id number] Potassium [Moles/Vol] 3.5 mmol/L Normal 3.5 - 5.1 [facility] Comment on above: Performed By: #### 2 [id number] #### [facility],[address] [place] [address] Sodium [Moles/Vol] 144 mmol/L Normal 136 - 145 [facility] Comment on above: Performed By: #### 2 [id number] #### [facility],[address] [place] [address]684 Urea nitrogen [Mass/Vol] 10 mg/dL Normal 7 - 18 [facility] Comment on above: Performed By: #### 2 [id number] #### [facility],[address] [place], [place] [id number] CBC + DIFFon 11-02-2024 Baso # 0.01 x10EE3/UL Normal 0.00 - 0.10 [facility] Comment on above: Performed By: #### 2 [id number] #### [facility],[address] [place] [address]353 Basophils/100 WBC (Bld) 0.1 % Normal 0.0 - 2.0 [facility] Comment on above: Performed By: #### 2 [id number] #### [facility],[address] [place] [address] CBC + DIFF Normal [facility] Comment on above: Result Comment: CBC- COMPLETE BLOOD COUNT Performed By: #### 2 36046 #### [facility],[address] [place] [address] EO # 0.13 x10EE3/UL Normal 0.00 - 0.50 [facility] Comment on above: Performed By: #### 2 42334 #### [facility],[address] [place] [address] 96512 Eosinophils/100 WBC (Bld) 1.8 % Normal 0.0 - 7.0 [facility] Comment on above: Performed By: #### 2 73953 #### [facility],[address] [place], [place] [id number] Erythrocyte distribution width (RBC) [Ratio] 14.7 % Normal 12.0 - 15.6 [facility] Comment on above: Performed By: #### 2 18781 #### [facility],[address] [place] [address] 23634 Hematocrit (Bld) [Volume fraction] 39.0 % Low 40.0 - 52.0 [facility] Comment on above: Performed By: #### 2 91290 #### [facility],[address] [place] [address] 52765 Hemoglobin (Bld) [Mass/Vol] 13.4 g/dL Normal 13.0 - 17.5 [facility] Comment on above: Performed By: #### 2 48562 #### [facility],[address] [place] [address] Lymph # 1.57 x10EE3/UL Normal 0.80 - 2.80 [facility] Comment on above: Performed By: #### 2 21289 #### [facility],[address] [place] [address] Lymphocytes/100 WBC (Bld) 22.1 % Normal 20.0 - 45.0 [facility] Comment on above: Performed By: #### 2 03740 #### [facility],[address] [place] [address] MANUAL DIFF N/A Normal [facility] Comment on above: Performed By: #### 2 00391 #### [facility],[address] [place] [address] MCH (RBC) [Entitic mass] 28 pg Normal 27 - 33 [facility] Comment on above: Performed By: #### 2 51173 #### [facility],[address] [place] [address] 36090 MCHC 34 X10 3 Normal 32 - 36 [facility] Comment on above: Performed By: #### 2 61374 #### [facility],[address] [place] [address] 89677 MCV (RBC) [Entitic vol] 82 fL Normal 81 - 98 [facility] Comment on above: Performed By: #### 2 26997 #### [facility],[address] [place] [address] 24090 [place] # 0.48 x10EE3/UL Normal 0.20 - 1.00 [facility] Comment on above: Performed By: #### 2 93252 #### [facility],[address] [place] [address] 64868 MONOS % 6.7 % Normal 0.0 - 10.0 [facility] Comment on above: Performed By: #### 2 80458 #### [facility],[address] [place] [address] 42753 Morphology [place] (Bld) [Interp] N/A Normal [facility] Comment on above: Performed By: #### 2 84183 #### [facility],[address] [place] [address] 33335 Neut # 4.94 x10EE3/UL Normal 1.50 - 7.10 [facility] Comment on above: Performed By: #### 2 96956 #### [facility],[address] [place] [address] 41932 Neutrophils/100 WBC (Bld) 69.3 % Normal 46.0 - 76.0 [facility] Comment on above: Performed By: #### 2 82345 #### [facility],[address] [place] [address] 19325 PLATELET 238 x10EE3/UL Normal 150 - 450 [facility] Comment on above: Performed By: #### 2 80540 #### [facility],[address] [place] [address] 66045 Platelet mean volume (Bld) [Entitic vol] 7.1 fL Normal 6.4 - 10.5 [facility] Comment on above: Result Comment: AUTO MATED DIFFERENTIAL Performed By: #### 2 99035 #### [facility],[address] [place] [address] 64792 RBC 4.74 x 10EE6/UL Normal 4.50 - 6.00 [facility] Comment on above: Performed By: #### 2 63577 #### [facility],[address] [place] [address] 21619 WBC 7.1 x 10EE3/UL Normal 4.5 - 10.8 [facility] Comment on above: Performed By: #### 2 88292 #### [facility],[address] [place] [address] 22562 LIPID PROFILEon 11-02-2024 Cholesterol [Mass/Vol] 152 mg/dL Normal 0 - 240 [facility] Comment on above: Performed By: #### 2 74702 #### [facility],[address] [place] [address] 96619 Cholesterol in HDL [Mass/Vol] 59 mg/dL Normal 40 - 60 [facility] Comment on above: Performed By: #### 2 05059 #### [facility],[address] [place] [address] 43189 Cholesterol in LDL [Mass/Vol] 70 mg/dL Normal 0 - 129 [facility] Comment on above: Performed By: #### 2 72794 #### [facility],[address] [place] [address] 05574 Cholesterol.total/Cho lesterol in HDL [Mass ratio] 2.6 {ratio} Normal 0.0 - 5.0 [facility] Comment on above: Performed By: #### 2 02581 #### [facility],[address] [place] [address] 58064 Lipid 1996 panel Normal [facility] Comment on above: Result Comment: LIPI D PROFILE Performed By: #### 2 80557 #### [facility],[address] [place] [address] 80871 Triglyceride [Mass/Vol] 117 mg/dL Normal 0 - 150 [facility] Comment on above: Performed By: #### 2 77723 #### [facility],[address] [place] [address] 41809 Absolute immature granulocyt e countOrdered By: SANA DUMONT on 10-28-2024 Immature granulocytes (Bld) [#/Vol] Absolute immature granulocyte count 0.00-1.00 [facility] Absolute lymphocyte countOrd ered By: SANARA DUMONT on 10-28-2024 Lymphocytes Auto (Unsp spec) [#/Vol] Absolute lymphocyte count 1.30-2.90 [facility] Basophils Auto (Bld) [#/Vol] Ordered By: SANA DUMONT on 10-28-2024 Basophils (Bld) [#/Vol] Automated blood basophil count (number/volume) 0.00-0.10 [facility] Blood absolute eosinophil co untOrdered By: SANA DUMONT on 10-28-2024 Eosinophils (Bld) [#/Vol] Blood absolute eosinophil count 0.00-0.20 [facility] Blood basophils/100 leukocyt esOrdered By: SANA DUMONT on 10-28-2024 Basophils/100 WBC (Bld) Blood basophils/100 leukocytes 0.2-1.0 [facility] Blood erythrocytes count (nu mber/volume)Ordered By: SANA DUMONT on 10-28-2024 RBC (Bld) [#/Vol] Blood erythrocyte count 4.13- 5.69 [facility] Blood hematocrit (volume fra ction)Ordered By: SANA DUMONT on 10-28-2024 Hematocrit (Bld) [Volume fraction] Blood hematocrit (volume fraction) 36.7-50.6 [facility] Blood leukocytes count (numb er/volume)Ordered By: SANA DUMONT on 10-28-2024 WBC (Bld) [#/Vol] Blood leukocytes cou nt (number/volume) 3.6-10.8 [facility] Blood platelet mean volumeOr dered By: SANA DUMONT on 10-28-2024 Platelet mean volume (Bld) [Entitic vol] Blood platelet mean volume 7.4-10.4 [facility] CBC w/Auto Differentialon Basophils Abs. # 0.02 K/uL Normal 0.00-0.10 [facility] Comment on above: Performed By: #### I CEMENT MASON #### [address] [address] Basophils/100 WBC (Bld) 0.3 % Normal 0.2-1.0 [facility] Comment on above: Performed By: #### I CEMENT MASON #### [address] [address] Eosinophils (Bld) [#/Vol] 0.20 10*3/uL Normal 0.00-0.20 [facility] Comment on above: Performed By: #### I CEMENT MASON #### [address] [place] [address] Eosinophils/100 WBC (Bld) 3.1 % High 0.9-2.9 [facility] Comment on above: Performed By: #### I CEMENT MASON #### [address] [place] [address] Erythrocyte distribution width (RBC) [Ratio] 13.6 % Normal 11.5-14.5 [facility] Comment on above: Performed By: #### I CEMENT MASON #### [address] [place] [id number] Hematocrit (Bld) [Volume fraction] 37.7 % Normal 36.7-50.6 [facility] Comment on above: Performed By: #### I CEMENT MASON #### [address] [place] [address] Hemoglobin (Bld) [Mass/Vol] 12.7 g/dL Normal 12.4-17.3 [facility] Comment on above: Performed By: #### I CEMENT MASON #### [place] [id number] Imm Grans % 0.00 % Normal 0.00-1.00 [facility] Comment on above: Performed By: #### I CEMENT MASON #### [address] [place] [address] Imm Grans Absolute # 0.00 K/uL Normal 0.00-0.10 [facility] Comment on above: Performed By: #### I CEMENT MASON #### [facility] [address] [place] [address] Lymphocytes (Bld) [#/Vol] 2.60 10*3/uL Normal 1.30-2.90 [facility] Comment on above: Performed By: #### I CEMENT MASON #### [address] [place] [address] Lymphocytes/100 WBC (Bld) 35.6 % Normal 17.0-45.5 [facility] Comment on above: Performed By: #### I CEMENT MASON #### [address] [place] [address] MCH (RBC) [Entitic mass] 28.3 pg Normal 27.0-31.0 [facility] Comment on above: Performed By: #### I CEMENT MASON #### [address] [place] [address] MCHC (RBC) [Mass/Vol] 33.7 g/dL Normal 33.0-37.0 [facility] Comment on above: Performed By: #### I CEMENT MASON #### [address] [place] [address] MCV (RBC) [Entitic vol] 84.2 fL Normal 80.0-94.0 [facility] Comment on above: Performed By: #### I CEMENT MASON #### [address] [place] [address] Monocytes (Bld) [#/Vol] 0.60 10*3/uL Normal 0.30-0.80 [facility] Comment on above: Performed By: #### I CEMENT MASON #### [address] [place] [address] Monocytes/100 WBC (Bld) 8.9 % Normal 5.5-11.7 [facility] Comment on above: Performed By: #### I CEMENT MASON #### [facility] [address] [place] [address] Neutrophils Abs. # 3.76 K/uL Normal 2.20-4.80 [facility] Comment on above: Performed By: #### I CEMENT MASON #### [address] [place] [address] Neutrophils/100 WBC (Bld) 52.1 % Normal 43.0-65.0 [facility] Comment on above: Performed By: #### I CEMENT MASON #### [address] [place] [address] Platelet mean volume (Bld) [Entitic vol] 8.9 fL Normal 7.4-10.4 [facility] Comment on above: Performed By: #### I CEMENT MASON #### [facility] [address] [place] [address] Platelets (Bld) [#/Vol] 190 10*3/uL Normal 148-402 [facility] Comment on above: Performed By: #### I CEMENT MASON #### [address] [place] [address] RBC (Bld) [#/Vol] 4.48 10*6/uL Normal 4.13-5.69 [facility] Comment on above: Performed By: #### I CEMENT MASON #### [address] [place] [address] WBC (Bld) [#/Vol] 7.2 10*3/uL Normal 3.6-10.8 [facility] Comment on above: Performed By: #### I CEMENT MASON #### [address] [place] [address] Calcium measurement (mass fr action)Ordered By: SANA DUMONT on 10-28-2024 Calcium (Unsp spec) [Mass fraction] Calcium measurement (mass fraction) 8.2-10.0 [facility] Comprehensive Metabolic Pane branden 10-28-2024 Albumin [Mass/Vol] 2.4 g/dL Low 3.4-5.0 [facility] Comment on above: Performed By: #### C MP #### [facility] [address] [place] [address] Albumin/Globulin [Mass ratio] 0.7 {ratio} Low 1.1-2.5 [facility] Comment on above: Performed By: #### C MP #### [address] [place] [address] ALP [Catalytic activity/Vol] 109 U/L Normal 54-112 [facility] Comment on above: Performed By: #### C MP #### [facility] [address] [place] [address] ALT [Catalytic activity/Vol] 33 U/L Normal 13-66 [facility] Comment on above: Performed By: #### C MP #### [address] [place] [address] Anion gap [Moles/Vol] 8.9 mmol/L Normal 8.0-16.0 [facility] Comment on above: Performed By: #### C MP #### [facility] [address] [place] [address] AST [Catalytic activity/Vol] 36 U/L Normal 3-39 [facility] Comment on above: Performed By: #### C MP #### [facility] [address] [place] [address] Bilirubin [Mass/Vol] 0.41 mg/dL Normal 0.00-0.99 [facility] Comment on above: Performed By: #### C MP #### [facility] [address] [place] [address] Calcium [Mass/Vol] 8.5 mg/dL Normal 8.2-10.0 [facility] Comment on above: Performed By: #### C MP #### [address] [place] [address] Chloride [Moles/Vol] 109 mmol/L Normal 94-110 [facility] Comment on above: Performed By: #### C MP #### [address] [place] [address] CO2 [Moles/Vol] 28 mmol/L Normal 21-34 [facility] Comment on above: Performed By: #### C MP #### [address] [place] [address] Creatinine [Mass/Vol] 1.00 mg/dL Normal 0.50-1.17 [facility] Comment on above: Performed By: #### C MP #### [address] [place] [address] EGFR Other Races >60 Normal >60 [facility] Comment on above: Performed By: #### C MP #### [address] [place] [address] GFR/1.73 sq M.predicted among blacks MDRD (S/P/Bld) [Vol rate/Area] mL/min/{1.73_m2} Normal >60 [facility] Comment on above: Result Comment: [employer]er marilin Kidney Disease less than 60 mL/min/1.73 m2 Kidney Failure less than 15 mL/min/1.73 m2 Average estimated GFR by age: 50-59 years 93 mL/min/1.73 m2 Performed By: #### C MP #### [facility] [address] [place] [address] Globulin (S) [Mass/Vol] 3.3 g/dL Normal 1.5-4.5 [facility] Comment on above: Performed By: #### C MP #### [facility] [address] [place] [address] Glucose [Mass/Vol] 103 mg/dL High 65-100 [facility] Comment on above: Performed By: #### C MP #### [address] [place] [address] Potassium [Moles/Vol] 3.9 mmol/L Normal 3.3-5.1 [facility] Comment on above: Performed By: #### C MP #### [address] [place] [address] Protein [Mass/Vol] 5.7 g/dL Low 6.1-8.2 [facility] Comment on above: Performed By: #### C MP #### [address] [place] [address] Sodium [Moles/Vol] 142 mmol/L Normal 132-145 [facility] Comment on above: Performed By: #### C MP #### [address] [place] [address] Urea nitrogen [Mass/Vol] 11.5 mg/dL Normal 3.2-26.9 [facility] Comment on above: Performed By: #### C MP #### [address] [place] [address] Urea nitrogen/Creatinine [Mass ratio] 12 mg/mg Normal 6-20 [facility] Comment on above: Performed By: #### C MP #### [address] [address] Determination of erythrocyte mean corpuscular volume (MCV)Ordered By: SANA DUMONT on 10-28-2024 MCV (RBC) [Entitic vol] Determination of erythrocyte mean corpuscular volume (MCV) 80.0-94.0 [facility] EKG reportOrdered By: CLAUDIA MEDEL on 10-28-2024 EKG study [address] [address] CARDIOLOGY Patient:JOHNATHAN GONZALEZ Acct:[id number] Unit:[id number] :1975 Loc:4TH FLOOR Room:[facility] Att:SANA DUMONT MD Ord#:[id number] Adm:10/26/24 CAR/EKG 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 Other Eosinophil count as percenta ge of total leukocytesOrdered By: SANA DUMONT on 10-28-2024 Eosinophils/100 WBC (Unsp spec) Eosinophil count as percentage of total leukocytes High 0.9-2.9 [facility] Erythrocyte distribution wid th standard deviationOrdered By: SANA DUMONT on 10-28-2024 Erythrocyte distribution width (RBC) [Ratio] Erythrocyte distribution width standard deviation 11.5-14.5 [facility] Glomerular filtration rate ( GFR) estimation/1.73 sq m using serum, plasma, or whole bOrdered By: SANA DUMONT on 10-28-2024 GFR/1.73 sq M.predicted among blacks CKD-EPI (S/P/Bld) [Vol rate/Area] Glomerular filtration rate (GFR) estimation/1.73 sq m using serum, plasma, or whole b >60 [facility] Comment on above: Chronic Kidney Disea se less than 60 mL/min/1.73 [id number] Failure less than 15 mL/min/1.73 [id number] estimated GFR by age:50-59 years 93 mL/min/1.73 m2 GFR/1.73 sq M.predicted among non-blacks CKD-EPI (S/P/Bld) [Vol rate/Area] Glomerular filtration rate (GFR) estimation/1.73 sq m using serum, plasma, or whole b >60 [facility] Lymphocytes/100 WBC Auto (Bl d)Ordered By: SANA DUMONT on 10-28-2024 Lymphocytes/100 WBC (Bld) Automated blood lymphocyte count as percentage of total leukocytes 17.0-45.5 [facility] MCH Auto (RBC) [Entitic mass ]Ordered By: SANA DUMONT on 10-28-2024 MCH (RBC) [Entitic mass] Automated erythrocyte mean corpuscular hemoglobin (MCH) measurement (mass/erythrocyte 27.0-31.0 [facility] MCHC Auto (RBC) [Mass/Vol]Or dered By: SANA DUMONT on 10-28-2024 MCHC (RBC) [Mass/Vol] Automated erythroc yte mean corpuscular hemoglobin concentration (MCHC) measurement (m 33.0-37.0 [facility] Monocytes Auto (Bld) [#/Vol] Ordered By: SANA DUMONT on 10-28-2024 Monocytes (Bld) [#/Vol] Automated blood monocyte count (number/volume) 0.30-0.80 [facility] Monocytes/100 WBC Auto (Bld) Ordered By: SAAN DUOMNT on 10-28-2024 Monocytes/100 WBC (Bld) Automated blood monocyte count as percentage of total leukocytes 5.5-11.7 [facility] Neutrophils Auto (Bld) [#/Vo l]Ordered By: SANA DUMONT on 10-28-2024 Neutrophils (Bld) [#/Vol] Automated blood neutrophil count (number/volume) 2.20-4.80 [facility] Neutrophils seg % bldOrdered By: SANA DUMONT on 10-28-2024 Segmented neutrophils/100 WBC (Bld) Neutrophils seg % bld 43.0-65.0 [facility] Platelets Auto (Bld) [#/Vol] Ordered By: SANA DUMONT on 10-28-2024 Platelets (Bld) [#/Vol] Automated blood platelet count (number/volume) 148-402 [facility] Potassium (Bld) [Moles/Vol]O rdered By: SANA DUMONT on 10-28-2024 Potassium [Moles/Vol] Potassium [Moles/v olume] in Blood 3.3-5.1 [facility] Protein total ser/plasOrdere d By: SANA DUMONT on 10-28-2024 Protein [Mass/Vol] Blood total protein measurement Low 6.1-8.2 [facility] Serum globulin measurement ( mass/volume)Ordered By: SANA DUMONT on 10-28-2024 Globulin (S) [Mass/Vol] Serum globulin measurement (mass/volume) 1.5-4.5 [facility] Serum or plasma alanine rose otransferase (ALT) measurementOrdered By: SANA DUMONT on 10-28-2024 ALT [Catalytic activity/Vol] ALT (SGPT) ser/plas 13-66 [facility] Serum or plasma albumin betty urement by bromocresol purple (BCP) dye binding method (mOrdered By: SANA DUMONT on 10-28-2024 Albumin BCP dye [Mass/Vol] Serum or plasma albumin measurement by bromocresol purple (BCP) dye binding method (m Low 3.4-5.0 [facility] Serum or plasma albumin/glob ulin mass ratioOrdered By: SANA DUMONT on 10-28-2024 Albumin/Globulin [Mass ratio] Serum or plasma albumin/globulin mass ratio Low 1.1-2.5 [facility] Serum or plasma alkaline alexa sphatase measurement (enzymatic activity/volume)Ordered By: SANA DUMONT on 10-28-2024 ALP [Catalytic activity/Vol] Serum or plasma alkaline phosphatase measurement (enzymatic activity/volume) 54-112 [facility] Serum or plasma anion gapOrd ered By: SANA DUMONT on 10-28-2024 Anion gap [Moles/Vol] Serum or plasma anion gap 8.0-16.0 [facility] Serum or plasma aspartate am inotransferase measurement with P-5'-P (enzymatic activitOrdered By: SANA DUMONT on 10-28-2024 AST With P-5'-P [Catalytic activity/Vol] Serum or plasma aspartate aminotransferase measurement with P-5'-P (enzymatic activit 3-39 [facility] Serum or plasma bilirubin me asurement (mass/volume)Ordered By: SANA DUMONT on 10-28-2024 Bilirubin [Mass/Vol] Serum or plasma bianca irubin measurement (mass/volume) 0.00-0.99 [facility] Serum or plasma carbon dioxi de measurement (moles/volume)Ordered By: SANA DUMONT on 10-28-2024 CO2 [Moles/Vol] Serum or plasma carb on dioxide measurement (moles/volume) 21-34 [facility] Serum or plasma chloride jane surement (moles/volume)Ordered By: SANA DUMONT on 10-28-2024 Chloride [Moles/Vol] Serum or plasma chl oride measurement (moles/volume) 94-110 [facility] Serum or plasma creatinine m easurement (mass/volume)Ordered By: SANA DUMONT on 10-28-2024 Creatinine [Mass/Vol] Serum or plasma cr eatinine measurement (mass/volume) 0.50-1.17 [facility] Serum or plasma glucose betty urement (mass/volume)Ordered By: SANA DUMONT on 10-28-2024 Glucose [Mass/Vol] Serum or plasma gluc ose measurement (mass/volume) High 65-100 [facility] Serum or plasma sodium measu rement (moles/volume)Ordered By: SANA DUMONT on 10-28-2024 Sodium [Moles/Vol] Serum or plasma sodi um measurement (moles/volume) 132-145 [facility] Serum or plasma urea nitroge n measurement (mass/volume)Ordered By: SANA DUMONT on 10-28-2024 Urea nitrogen [Mass/Vol] Serum or plasma urea nitrogen measurement (mass/volume) 3.2-26.9 [facility] Serum or plasma urea nitroge n/creatinine mass ratioOrdered By: SANA DUMONT on 10-28-2024 Urea nitrogen/Creatinine [Mass ratio] Serum or plasma urea nitrogen/creatinine mass ratio 6-20 [facility] Whole blood hemoglobin measu rement (mass/volume)Ordered By: SANA DUMONT on 10-28-2024 Hemoglobin (Bld) [Mass/Vol] Whole blood hemoglobin measurement (mass/volume) 12.4-17.3 [facility] Bacteria detection in urine sediment by light microscopyOrdered By: SANA DUMONT on 10-27-2024 Bacteria LM Ql (Urine sed) Bacteria detection in urine sediment by light microscopy 0 - 1+ [facility] Bilirubin Confirmationon Bilirubin Confirmation Negative Normal Negative [facility] Comment on above: Performed By: #### I CEMENT MASON #### [address] [place] [address] CBC w/Auto Differentialon Basophils Abs. # 0.02 K/uL Normal 0.00-0.10 [facility] Comment on above: Performed By: #### I CEMENT MASON #### [address] [place] [address] Basophils/100 WBC (Bld) 0.2 % Normal 0.2-1.0 [facility] Comment on above: Performed By: #### I CEMENT MASON #### [address] [id number] Eosinophils (Bld) [#/Vol] 0.20 10*3/uL Normal 0.00-0.20 [facility] Comment on above: Performed By: #### I CEMENT MASON #### [address] [place] [address] Eosinophils/100 WBC (Bld) 2.4 % Normal 0.9-2.9 [facility] Comment on above: Performed By: #### I CEMENT MASON #### [address] [id number] Erythrocyte distribution width (RBC) [Ratio] 13.7 % Normal 11.5-14.5 [facility] Comment on above: Performed By: #### I CEMENT MASON #### [address] [id number] Hematocrit (Bld) [Volume fraction] 40.0 % Normal 36.7-50.6 [facility] Comment on above: Performed By: #### I CEMENT MASON #### [facility] [address] [place] [address] Hemoglobin (Bld) [Mass/Vol] 13.3 g/dL Normal 12.4-17.3 [facility] Comment on above: Performed By: #### I CEMENT MASON #### [address] [place] [address] Imm Grans % 0.10 % Normal 0.00-1.00 [facility] Comment on above: Performed By: #### I CEMENT MASON #### [address] [place] [address] Imm Grans Absolute # 0.01 K/uL Normal 0.00-0.10 [facility] Comment on above: Performed By: #### I CEMENT MASON #### [address] [place] [address] Lymphocytes (Bld) [#/Vol] 2.30 10*3/uL Normal 1.30-2.90 [facility] Comment on above: Performed By: #### I CEMENT MASON #### [address] [place] [address] Lymphocytes/100 WBC (Bld) 28.8 % Normal 17.0-45.5 [facility] Comment on above: Performed By: #### I CEMENT MASON #### [address] [place] [address] MCH (RBC) [Entitic mass] 27.8 pg Normal 27.0-31.0 [facility] Comment on above: Performed By: #### I CEMENT MASON #### [address] [place] [address] MCHC (RBC) [Mass/Vol] 33.3 g/dL Normal 33.0-37.0 [facility] Comment on above: Performed By: #### I CEMENT MASON #### [facility] [address] [place] [address] MCV (RBC) [Entitic vol] 83.7 fL Normal 80.0-94.0 [facility] Comment on above: Performed By: #### I CEMENT MASON #### [facility] [address] [place] [address] Monocytes (Bld) [#/Vol] 0.60 10*3/uL Normal 0.30-0.80 [facility] Comment on above: Performed By: #### I CEMENT MASON #### [address] [place] [address] Monocytes/100 WBC (Bld) 7.8 % Normal 5.5-11.7 [facility] Comment on above: Performed By: #### I CEMENT MASON #### [address] [place] [address] Neutrophils Abs. # 4.88 K/uL High 2.20-4.80 [facility] Comment on above: Performed By: #### I CEMENT MASON #### [address] [place] [address] Neutrophils/100 WBC (Bld) 60.7 % Normal 43.0-65.0 [facility] Comment on above: Performed By: #### I CEMENT MASON #### [address] [place] [address] Platelet mean volume (Bld) [Entitic vol] 9.0 fL Normal 7.4-10.4 [facility] Comment on above: Performed By: #### I CEMENT MASON #### [address] [place] [address] Platelets (Bld) [#/Vol] 201 10*3/uL Normal 148-402 [facility] Comment on above: Performed By: #### I CEMENT MASON #### [address] [place] [address] RBC (Bld) [#/Vol] 4.78 10*6/uL Normal 4.13-5.69 [facility] Comment on above: Performed By: #### I CEMENT MASON #### [address] [place] [address] WBC (Bld) [#/Vol] 8.1 10*3/uL Normal 3.6-10.8 [facility] Comment on above: Performed By: #### I CEMENT MASON #### [address] [address] Comprehensive Metabolic Pane branden 10-27-2024 Albumin [Mass/Vol] 2.4 g/dL Low 3.4-5.0 [facility] Comment on above: Performed By: #### I CEMENT MASON #### [address] [address] Albumin/Globulin [Mass ratio] 0.6 {ratio} Low 1.1-2.5 [facility] Comment on above: Performed By: #### I CEMENT MASON #### [address] [address] ALP [Catalytic activity/Vol] 114 U/L High 54-112 [facility] Comment on above: Performed By: #### I CEMENT MASON #### [address] [address] ALT [Catalytic activity/Vol] 17 U/L Normal 13-66 [facility] Comment on above: Performed By: #### I CEMENT MASON #### [address] [place] [address] Anion gap [Moles/Vol] 8.1 mmol/L Normal 8.0-16.0 [facility] Comment on above: Performed By: #### I CEMENT MASON #### [facility] [address] [place] [address] AST [Catalytic activity/Vol] 12 U/L Normal 3-39 [facility] Comment on above: Performed By: #### I CEMENT MASON #### [facility] [address] [place] [address] Bilirubin [Mass/Vol] 0.45 mg/dL Normal 0.00-0.99 [facility] Comment on above: Performed By: #### I CEMENT MASON #### [address] [place] [address] Calcium [Mass/Vol] 9.1 mg/dL Normal 8.2-10.0 [facility] Comment on above: Performed By: #### I CEMENT MASON #### [facility] [address] [place] [address] Chloride [Moles/Vol] 109 mmol/L Normal 94-110 [facility] Comment on above: Performed By: #### I CEMENT MASON #### [address] [place] [address] CO2 [Moles/Vol] 27 mmol/L Normal 21-34 [facility] Comment on above: Performed By: #### I CEMENT MASON #### [address] [place] [address] Creatinine [Mass/Vol] 1.00 mg/dL Normal 0.50-1.17 [facility] Comment on above: Performed By: #### I CEMENT MASON #### [address] [place] [address] EGFR Other Races >60 Normal >60 [facility] Comment on above: Performed By: #### I CEMENT MASON #### [facility] [address] [place] [address] GFR/1.73 sq M.predicted among blacks MDRD (S/P/Bld) [Vol rate/Area] mL/min/{1.73_m2} Normal >60 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 Comment on above: Performed By: #### I CEMENT MASON #### [facility] [address] [place] [address] Glucose [Mass/Vol] 86 mg/dL Normal 65-100 [facility] Comment on above: Performed By: #### I CEMENT MASON #### [facility] [address] [place] [address] Potassium [Moles/Vol] 3.1 mmol/L Low 3.3-5.1 [facility] Comment on above: Performed By: #### I CEMENT MASON #### [facility] [address] [place] [address] Protein [Mass/Vol] 6.1 g/dL Normal 6.1-8.2 [facility] Comment on above: Performed By: #### I CEMENT MASON #### [facility] [address] [place] [address] Sodium [Moles/Vol] 141 mmol/L Normal 132-145 [facility] Comment on above: Performed By: #### I CEMENT MASON #### [facility] [address] [place] [address] Urea nitrogen [Mass/Vol] 13.0 mg/dL Normal 3.2-26.9 [facility] Comment on above: Performed By: #### I CEMENT MASON #### [facility] [address] [place] [address] Urea nitrogen/Creatinine [Mass ratio] 13 mg/mg Normal 6-20 [facility] Comment on above: Performed By: #### I CEMENT MASON #### [facility] [address] [place] [address] Confirmatory bilirubin measu rementOrdered By: SANA DUMONT on 10-27-2024 Bilirubin Confirm Ql (U) Urine bilirubin confirmation Negative [facility] Ketones Test strip Ql (U)Ord ered By: SANA DUMONT on 10-27-2024 Ketones Ql (U) Urine ketones detect ion by test strip Abnormal Negative [facility] Leukocyte esterase ur dipsti ckOrdered By: SANA DUMONT on 10-27-2024 Leukocyte esterase Test strip Ql (U) Urine leukocyte esterase detection by dipstick Negative [facility] Mucus LM Ql (Urine sed)Order ed By: SANA DUMONT on 10-27-2024 Mucus Ql (Urine sed) Mucus detection in urine sediment by light microscopy [facility] Nitrite Test strip Ql (U)Ord ered By: SANA DUMONT on 10-27-2024 Nitrite Ql (U) Nitrite ur dipstick Negative [facility] Protein ur QLOrdered By: SHAMIKA DUMONT on 10-27-2024 Protein Ql (U) Protein ur QL Abnormal Negative [facility] RBC LM Ql (Urine sed)Ordered By: SANA DUMONT on 10-27-2024 RBC Ql (U) Erythrocytes detecti on in urine sediment by light microscopy 0 - 2 [facility] RBC Test strip (U) [#/Vol]Or dered By: SANA DUMONT on 10-27-2024 RBC (U) [#/Vol] Urine erythrocytes c ount by test strip (number/volume) Negative [facility] Specific gravity Test strip (U) [Rel density]Ordered By: SANA DUMONT on 10-27-2024 Specific gravity (U) [Rel density] Specific gravity ur dipstick 1.015-1.[address] [facility] UA w/Micrscopic-reflex cultu reon 10-27-2024 Appearance (U) CLEAR Normal Clear [facility] Comment on above: Performed By: #### U AMRC #### [facility] [address] [place], [place] [id number] Bilirubin Ql (U) 1 Abnormal Negative [facility] Comment on above: Performed By: #### U AMRC #### [facility] [address] [place], [place] [id number] Color (U) brown Normal Yellow [facility] Comment on above: Performed By: #### U AMRC #### [facility] [address] [place] [address] Glucose Ql (U) NORMAL Normal Negative [facility] Comment on above: Performed By: #### U AMRC #### [facility] [address] [place] [address] Hemoglobin Ql (U) Negative Normal Negative [facility] Comment on above: Performed By: #### U AMRC #### [facility] [address] [place] [address] Ketones Ql (U) [address] [facility] Comment on above: Performed By: #### U AMRC #### [facility] [address] [place] [address] Leukocytes Esterase Negative Normal Negative [facility] Comment on above: Performed By: #### U AMRC #### [facility] [address] [place] [address] Nitrite Ql (U) Negative Normal Negative [facility] Comment on above: Performed By: #### U AMRC #### [facility] [address] [place] [address] pH (U) 5 [pH] Normal [facility] Comment on above: Performed By: #### U AMRC #### [address] [place] [address] Protein Ql (U) [address] [facility] Comment on above: Performed By: #### U AMRC #### [facility] [address] [place] [address] Specific gravity (U) [Rel density] 1.020 Normal 1.015-1.[address] [place] [address] Comment on above: Performed By: #### U AMRC #### [facility] [address] [place] [address] Urobilinogen NORMAL Normal Normal-1.0 [facility] Comment on above: Performed By: #### U AMRC #### [facility] [address] [place] [address] Urine appearance determinati onOrdered By: SANA DUMONT on 10-27-2024 Appearance (U) Appearance ur Clear [facility] Urine color determinationOrd ered By: SANA DUMONT on 10-27-2024 Color (U) Color ur Yellow [facility] Urine epithelial cells detec tionOrdered By: SANA DUMONT on 10-27-2024 Epithelial cells Ql (U) Urine epithelial cells detection 0 - 6 [facility] Urine glucose measurement by test strip (mass/volume)Ordered By: SANA DUMONT on 10-27-2024 Glucose Test strip (U) [Mass/Vol] Urine glucose measurement by test strip (mass/volume) Negative [facility] Urine leukocytes count (numb er/volume)Ordered By: SANA DUMONT on 10-27-2024 WBC (U) [#/Vol] Urine leukocytes cou nt (number/volume) 0 - 6 [facility] Urine total bilirubin detect ionOrdered By: SANA DUMONT on 10-27-2024 Bilirubin Ql (U) Urine total bilirubi n detection Abnormal Negative [facility] Urine urobilinogen measureme ntOrdered By: SANA DUMONT on 10-27-2024 Urobilinogen Ql (U) Urine urobilinogen measurement Normal-1.0 [facility] pH Test strip (U)Ordered By: SANA DUMONT on 10-27-2024 pH (U) Urine pH measurement by dipstick [facility] Bilirubin Confirmationon Bilirubin Confirmation Negative Normal Negative [facility] Comment on above: Performed By: #### I CEMENT MASON #### [address] [place] [address] CBC w/Auto Differentialon Basophils Abs. # 0.03 K/uL Normal 0.00-0.10 [facility] Comment on above: Performed By: #### I CEMENT MASON #### [address] [place] [address] Basophils/100 WBC (Bld) 0.3 % Normal 0.2-1.0 [facility] Comment on above: Performed By: #### I CEMENT MASON #### [address] [address] Eosinophils (Bld) [#/Vol] 0.20 10*3/uL Normal 0.00-0.20 [facility] Comment on above: Performed By: #### I CEMENT MASON #### [address] [place] [address] Eosinophils/100 WBC (Bld) 2.1 % Normal 0.9-2.9 [facility] Comment on above: Performed By: #### I CEMENT MASON #### [address] [place] [address] Erythrocyte distribution width (RBC) [Ratio] 13.5 % Normal 11.5-14.5 [facility] Comment on above: Performed By: #### I CEMENT MASON #### [address] [address] Hematocrit (Bld) [Volume fraction] 40.0 % Normal 36.7-50.6 [facility] Comment on above: Performed By: #### I CEMENT MASON #### [address] [place] [address] Hemoglobin (Bld) [Mass/Vol] 13.5 g/dL Normal 12.4-17.3 [facility] Comment on above: Performed By: #### I CEMENT MASON #### [address] [place] [address] Imm Grans % 0.10 % Normal 0.00-1.00 [facility] Comment on above: Performed By: #### I CEMENT MASON #### [address] [place] [address] Imm Grans Absolute # 0.01 K/uL Normal 0.00-0.10 [facility] Comment on above: Performed By: #### I CEMENT MASON #### [address] [place] [address] Lymphocytes (Bld) [#/Vol] 1.30 10*3/uL Normal 1.30-2.90 [facility] Comment on above: Performed By: #### I CEMENT MASON #### [address] [place] [address] Lymphocytes/100 WBC (Bld) 14.4 % Low 17.0-45.5 [facility] Comment on above: Performed By: #### I CEMENT MASON #### [address] [place] [address] MCH (RBC) [Entitic mass] 27.7 pg Normal 27.0-31.0 [facility] Comment on above: Performed By: #### I CEMENT MASON #### [address] [address] MCHC (RBC) [Mass/Vol] 33.8 g/dL Normal 33.0-37.0 [facility] Comment on above: Performed By: #### I CEMENT MASON #### [address] [place] [address] MCV (RBC) [Entitic vol] 82.0 fL Normal 80.0-94.0 [facility] Comment on above: Performed By: #### I CEMENT MASON #### [address] [address] Monocytes (Bld) [#/Vol] 0.50 10*3/uL Normal 0.30-0.80 [facility] Comment on above: Performed By: #### I CEMENT MASON #### [address] [place] [address] Monocytes/100 WBC (Bld) 5.7 % Normal 5.5-11.7 [facility] Comment on above: Performed By: #### I CEMENT MASON #### [facility] [address] [place] [address] Neutrophils Abs. # 6.78 K/uL High 2.20-4.80 [facility] Comment on above: Performed By: #### I CEMENT MASON #### [facility] [address] [place] [address] Neutrophils/100 WBC (Bld) 77.4 % High 43.0-65.0 [facility] Comment on above: Performed By: #### I CEMENT MASON #### [address] [place] [address] Platelet mean volume (Bld) [Entitic vol] 8.6 fL Normal 7.4-10.4 [facility] Comment on above: Performed By: #### I CEMENT MASON #### [address] [place] [address] Platelets (Bld) [#/Vol] 200 10*3/uL Normal 148-402 [facility] Comment on above: Performed By: #### I CEMENT MASON #### [address] [place] [address] RBC (Bld) [#/Vol] 4.88 10*6/uL Normal 4.13-5.69 [facility] Comment on above: Performed By: #### I CEMENT MASON #### [address] [place] [address] WBC (Bld) [#/Vol] 8.8 10*3/uL Normal 3.6-10.8 [facility] Comment on above: Performed By: #### I CEMENT MASON #### [address] [place] [address] CHEST APon 10-26-2024 CHEST AP EXAMINATION: ONE XRAY VIEW OF THE CHEST 10/26/2024 12:52 pm COMPARISON: 06/25/2023 HISTORY: ORDERING SYSTEM PROVIDED HISTORY: weakness FINDINGS: Heart size is normal. There are no infiltrates or effusions. There is minimal scarring in left lower lobe. There is mild tortuosity of the aorta. IMPRESSION: No acute cardiopulmonary process. Normal [facility] CURINon 10-26-2024 LUIS Patient: OMER GONZALEZ [id number] Location: [facility] Aount: [id number] : 1975 Age: 49 Sex M Lab NumbEr [id number] Requested by: LILA HEWITT Admitdate: 10/26/24 Source: UR Collected: 10/26/24 15:51 Site: Received : 10/26/24 16:06 Culture, Urine FINAL 10/28/24 12:51 10/27/24 AEROBIC CULTURE RESULTS: #1: LIGHT GNB COLONY COUNT: 25,000 CFU/ml Organism 01 Enterobacter cloacae Organism E. cloacae ANTIBIOTICS [facility] Interp Amp/Sulbactam >16/8 R Ampicillin >16 R Aztreonam >16 R Cefazolin >16 R Cefepime <2 S Ceftazidime >16 R Ceftriaxone >2 R Ciprofloxacin <0.25 S Ertapenem 1 I Gentamicin <2 S Levofloxacin <0.5 S Nitrofurantoin <32 S Piperacillin/Asif >64 R Tobramycin <2 S Trimeth/Sulfa <2/38 S S=Sensitive I=Intermediate R=Resistant Normal [facility] Comment on above: Performed By: #### M IC2 #### [facility] [address] [place] [address] Comprehensive Metabolic Pane branden 10-26-2024 Albumin [Mass/Vol] 2.5 g/dL Low 3.4-5.0 [facility] Comment on above: Performed By: #### C MP #### [facility] [address] [place] [address] Albumin/Globulin [Mass ratio] 0.7 {ratio} Low 1.1-2.5 [facility] Comment on above: Performed By: #### C MP #### [facility] [address] [place] [address] ALP [Catalytic activity/Vol] 116 U/L High 54-112 [facility] Comment on above: Performed By: #### C MP #### [facility] [address] [place] [address] ALT [Catalytic activity/Vol] 20 U/L Normal 13-66 [facility] Comment on above: Performed By: #### C MP #### [facility] [address] [place] [address] Anion gap [Moles/Vol] 8.2 mmol/L Normal 8.0-16.0 [facility] Comment on above: Performed By: #### C MP #### [facility] [address] [place] [address] AST [Catalytic activity/Vol] 13 U/L Normal 3-39 [facility] Comment on above: Performed By: #### C MP #### [facility] [address] [place] [address] Bilirubin [Mass/Vol] 0.44 mg/dL Normal 0.00-0.99 [facility] Comment on above: Performed By: #### C MP #### [address] [place] [address] Calcium [Mass/Vol] 8.6 mg/dL Normal 8.2-10.0 [facility] Comment on above: Performed By: #### C MP #### [address] [place] [address] Chloride [Moles/Vol] 108 mmol/L Normal 94-110 [facility] Comment on above: Performed By: #### C MP #### [address] [place] [address] CO2 [Moles/Vol] 27 mmol/L Normal 21-34 [facility] Comment on above: Performed By: #### C MP #### [address] [place] [address] Creatinine [Mass/Vol] 1.00 mg/dL Normal 0.50-1.17 [facility] Comment on above: Performed By: #### C MP #### [address] [place] [address] EGFR Other Races >60 Normal >60 [facility] Comment on above: Performed By: #### C MP #### [address] [place] [address] GFR/1.73 sq M.predicted among blacks MDRD (S/P/Bld) [Vol rate/Area] mL/min/{1.73_m2} Normal >60 [facility] Comment on above: Result Comment: Billiard Table Assembler marilin Kidney Disease less than 60 mL/min/1.73 m2 Kidney Failure less than 15 mL/min/1.73 m2 Average estimated GFR by age: 50-59 years 93 mL/min/1.73 m2 Performed By: #### C MP #### [facility] [address] [place] [address] Globulin (S) [Mass/Vol] 3.7 g/dL Normal 1.5-4.5 [facility] Comment on above: Performed By: #### C MP #### [address] [place] [address] Glucose [Mass/Vol] 122 mg/dL High 65-100 [facility] Comment on above: Performed By: #### C MP #### [facility] [address] [place] [address] Potassium [Moles/Vol] 3.2 mmol/L Low 3.3-5.1 [facility] Comment on above: Performed By: #### C MP #### [address] [place] [address] Protein [Mass/Vol] 6.2 g/dL Normal 6.1-8.2 [facility] Comment on above: Performed By: #### C MP #### [address] [place] [address] Sodium [Moles/Vol] 140 mmol/L Normal 132-145 [facility] Comment on above: Performed By: #### C MP #### [address] [place] [address] Urea nitrogen [Mass/Vol] 12.4 mg/dL Normal 3.2-26.9 [facility] Comment on above: Performed By: #### C MP #### [facility] [address] [place], [place] [address] Urea nitrogen/Creatinine [Mass ratio] 12 mg/mg Normal 6-20 [facility] Comment on above: Performed By: #### C MP #### [address] [place], [place] [id number] Creatine Kinaseon 10-26-2024 CK [Catalytic activity/Vol] 68 U/L Normal 39-308 [facility] Comment on above: Performed By: #### C PK #### [address] [id number] Creatine kinase total serOrd ered By: LILA HEWITT on 10-26-2024 CK [Catalytic activity/Vol] Creatine kinase total ser 39-308 [facility] EMERGENCY DEPARTMENTon 10-26 [place] [address] HEALTH INFORMATION MANAGEMENT EMERGENCY DEPARTMENT : [phone] Signed Patient: JOHNATHAN GONZALEZ Acct:[id number] MRUN: [id number] : 1975 Sex: M Loc: ED ADM Date: Room/Bed: DISC Date: History of Present Illness - General Chief complaint: Other Stated complaint: WANTS SNF PLACEMENT Symptom onset: TODAY HPI: PT TO RM 1 VIA [facility] FROM HOME WITH NO COMPLAINTS, STATING HE AND HIS SPOUSE WANT HIM TO HAVE AN EVAL FOR PLACEMENT IN [facility] R/T TOO DIFFICULT TO TAKE CARE OF HIM AT HOME. PT HAD CVA IN 2019 WITH LEFT SIDED WEAKNESS REMAINING. PT NON AMBULATORY, PT A O X4, DENIES PAIN. STATES HE WAS D/C[facility]D FROM [facility] LA[facility] MONTH AND SPOUSE IS TAKING CARE OF HIM AND HER MOTHER AT THEIR HOME, PT STATES IT'S TOO MUCH FOR HER. 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 unable to take care of him. Hence in the emergency room to be placed back to the jail. Reports he called his jail and was told to come to the ER for the same. Has not called his PCP to help him with his placement. Has no other complaints no new injury or fall. Denies any pain. Denies any travelling history/sick contacts/recent use of antibiotics/Covid exposure. No cough/congestion/fever/chi lls/rash. No blood in stool/vomitus or urine. NO LOC/Dizziness/Syncope. No headache/neck pain/dyspnea/chest pain or abdominal pain. No speech or vision problems. No new or worsening unilateral weakness in face or extremities Time Seen by Provider: 10/26/24 11:26 Mode of Transport: [facility] - Related Data Home Medications Medication Instructions Recorded Confirmed Acetaminophen [Aphen] 650 mg PO Q4H PRN 02/08/22 06/25/23 Levetiracetam [Keppra] 500 mg PO BID 02/08/22 06/25/23 Melatonin 5 mg PO QHS 02/08/22 06/25/23 Menthol [Biofreeze] 1 applic TP BID 02/08/22 06/25/23 Rivastigmine Tartrate 6 mg PO BID 02/08/22 06/25/23 [Rivastigmine] Finasteride [Proscar 5 mg Tablet] 5 mg PO DAILY tablet 02/16/22 06/25/23 Tamsulosin HCl [Flomax] 0.4 mg PO DAILY 30 Days #30 capsule 02/16/22 06/25/23 Albuterol Sulfate [Albuterol 8.5 gm IH Q4H PRN 02/10/23 06/25/23 Sulfate Hfa] Duloxetine HCl [Cymbalta] 60 mg PO DAILY 02/10/23 06/25/23 Medroxyprogesterone Acetate 10 mg PO BID 02/10/23 06/25/23 [Provera] Polyethylene Glycol 3350 [Miralax 1 packet PO DAILY PRN 02/10/23 06/25/23 Packet 17 gm] Zofran 4 mg Odt 4 cap PO .PER.INSTRUCTIONS PRN 02/10/23 06/25/23 Aspirin [Adult Low Dose Aspirin EC] 81 mg PO DAILY 06/22/23 06/25/23 Baclofen 5 mg PO BID 06/22/23 06/25/23 Benzocaine/Menthol/Zinc Chlor 1 applic PO QID PRN 06/22/23 06/25/23 [Orajel 3X Mouth Sores Gel] Hydrocortisone [Hydrocortisone 1% 1 applic TP QID PRN 06/22/23 06/25/23 Ointment] Nitroglycerin [Nitrostat] See Rx Instructions .ROUTE 06/22/23 06/25/23 .COMPLEX PRN Amlodipine Besylate [Norvasc 5 mg 5 mg PO DAILY tablet 06/24/23 06/25/23 Tablet] Atorvastatin Calcium [Lipitor 40 40 mg PO QHS tablet 06/24/23 06/25/23 mg Tablet] Magnesium Hydroxide [Milk of 30 ml PO DAILY #0 06/27/23 06/25/23 Magnesia] Pantoprazole Sodium 40 mg PO DAILY #30 06/27/23 Allergies Allergy/AdvReac Type Severity Reaction Status Date / Time No Known Allergies Allergy Verified 04/26/19 04:44 Review of System - Constitutional Constitutional: Present: see HPI, Well developed, Well nourished, Non-toxic. Absent: diaphoresis, fever, Lethargic - Nose,Throat,Mouth Nose (ROS): Present: no symptoms reported. Absent: pain Throat: Present: no symptoms reported. Absent: pain, swelling, discharge Mouth: Present: no symptoms reported. Absent: pain, swelling - Respiratory Respiratory: Present: no symptoms reported. Absent: cough, short of breath, wheezing - CV Cardiology: Present: no symptoms reported. Absent: chest pain, edema - GI Gastrointestinal/Abdominal : Present: no symptoms reported. Absent: abdominal pain, diarrhea, nausea, vomiting - Genitourinary Symptoms: Present: no symptoms reported. 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 Absent: headache, weakness - Muskuloskeletal Musculoskeletal: Absent: back pain, joint pain, joint swelling - Integumentary Skin: Absent: lesions, rash - Allergic/Immunologic Immunological/Allergic: Present: no symptoms reported - Hematologic Hematologic/Lymphatic: Absent: easy bleeding, easy bruising, swollen glands - Endocrine Endocrine: Present: no symptoms reported - Psychiatric Psychiatric: Present: Normal Affect, Normal Mood. Absent: Depressed - All Others/Exceptions All Other S (more content not included)... Normal [facility] High Sensitivity TNIon 10-26 Abs Change hsTnI 0 ng/L Normal [facility] Comment on above: Performed By: #### C MP #### [facility] [address] [place], [place] [id number] Delta % hsTnI 0 % Normal [facility] Comment on above: Performed By: #### C MP #### [facility] [address] [place] [address] High Sensitivity TNI 6 ng/L Normal 0-76 [facility] Comment on above: Result Comment: Inte rpretation comment: High-sensitivity troponin I (hsTnI) assay can reliably detect low troponin concentrations relative to conventional troponin assays. It is the preferred marker of myocardial necrosis as recommended by the Fourth [place] Definition of Myocardial Infarction Guidelines. The diagnosis of acute myocardial infarction (AMI) is made based on a rise or fall of troponin with at least one measurement exceeding the laboratory's upper limit of normal (indicating myocardial injury), in the context of reasonable suspicion for coronary ischemia (e.g. typical symptoms, changes on ECG, evidence for loss of myocardial infarction or demonstration of obstructive coronary artery disease). Note: Although abnormal hsTnI values reflect injury to myocardial cells, an elevated hsTnI does not indicate the cause of injury (i.e. ischemia versus non-ischemic disease). In some cases, myocardial injury is chronic and relatively stable such that hsTnI values remain elevated but do not change substantially over hours to days (examples include chronic kidney disease, heart failure or advanced patient age). When determining whether there has been a significant rise or fall of troponin on serial sampling, absolute change in troponin concentration has greater diagnostic accuracy for AMI then relative change criteria. A change of >7 ng/L over a 2-hour interval or a change of >10 ng/L over a 3-hour interval is suggested as a significant change. If the initial hsTnI is below or at the 99th percentile upper reference limit, a 50% change from the baseline is considered significant. If the initial hsTnI is above the 99th percentile upper reference limit, a 20% change from the baseline value is considered significant. Performed By: #### C #### [address] [place] [address] High Sensitivity TNI 6 ng/L Normal 0-76 [facility] Comment on above: Result Comment: Inte rpretation comment: High-sensitivity troponin I (hsTnI) assay can reliably detect low troponin concentrations relative to conventional troponin assays. It is the preferred marker of myocardial necrosis as recommended by the Fourth [place] Definition of Myocardial Infarction Guidelines. The diagnosis of acute myocardial infarction (AMI) is made based on a rise or fall of troponin with at least one measurement exceeding the laboratory's upper limit of normal (indicating myocardial injury), in the context of reasonable suspicion for coronary ischemia (e.g. typical symptoms, changes on ECG, evidence for loss of myocardial infarction or demonstration of obstructive coronary artery disease). Note: Although abnormal hsTnI values reflect injury to myocardial cells, an elevated hsTnI does not indicate the cause of injury (i.e. ischemia versus non-ischemic disease). In some cases, myocardial injury is chronic and relatively stable such that hsTnI values remain elevated but do not change substantially over hours to days (examples include chronic kidney disease, heart failure or advanced patient age). When determining whether there has been a significant rise or fall of troponin on serial sampling, absolute change in troponin concentration has greater diagnostic accuracy for AMI then relative change criteria. A change of >7 ng/L over a 2-hour interval or a change of >10 ng/L over a 3-hour interval is suggested as a significant change. If the initial hsTnI is below or at the 99th percentile upper reference limit, a 50% change from the baseline is considered significant. If the initial hsTnI is above the 99th percentile upper reference limit, a 20% change from the baseline value is considered significant. Performed By: #### C #### [id number] [place] [id number] Interpretation of serum or p lasma cardiac troponin I measurement by high sensitivityOrdered By: LILA HEWITT on 10-26-2024 Troponin I.cardiac High sensitivity method Ql [Interp] Interpretation of serum or plasma cardiac troponin I measurement by high sensitivity 0-76 [facility] Comment on above: Interpretation comme nt:High-sensitivity troponin I (hsTnI) assay can reliably detect low troponinconcentrations relative to conventional troponin assays. It is thepreferred marker of myocardial necrosis as recommended by the [place] Definition of Myocardial Infarction Guidelines.The diagnosis of acute myocardial infarction (AMI) is made based on a riseor fall of troponin with at least one measurement exceeding the laboratory'supper limit of normal (indicating myocardial injury), in the context ofreasonable suspicion for coronary ischemia (e.g. typical symptoms, changeson ECG, evidence for loss of myocardial infarction or demonstration ofobstructive coronary artery disease).Note: Although abnormal hsTnI values reflect injury to myocardial cells, anelevated hsTnI does not indicate the cause of injury (i.e. ischemia versusnon-ischemic disease).In some cases, myocardial injury is chronic and relatively stable such thathsTnI values remain elevated but do not change substantially over hours todays (examples include chronic kidney disease, heart failure or advancedpatient age).When determining whether there has been a significant rise or fall oftroponin on serial sampling, absolute change in troponin concentration hasgreater diagnostic accuracy for AMI then relative change criteria. A changeof >7 ng/L over a 2-hour interval or a change of >10 ng/L over a 3-hourinterval is suggested as a significant change. If the initial hsTnI isbelow or at the 99th percentile upper reference limit, a 50% change from thebaseline is considered significant. If the initial hsTnI is above the 99thpercentile upper reference limit, a 20% change from the baseline value isconsidered significant. Magnesiumon 10-26-2024 Magnesium [Mass/Vol] 1.9 mg/dL Normal 1.3-2.3 [facility] Comment on above: Performed By: #### M G #### [facility] [address] [place], [place] [id number] Phosphoruson 10-26-2024 Phosphate [Mass/Vol] 2.8 mg/dL Normal 2.5-4.9 [facility] Comment on above: Performed By: #### P HOS #### [facility] [address] [place] [address] Serum or plasma magnesium me asurement (mass/volume)Ordered By: LILA HEWITT on 10-26-2024 Magnesium [Mass/Vol] Serum or plasma mag nesium measurement (mass/volume) 1.3-2.3 [facility] Serum or plasma phosphate me asurement (mass/volume)Ordered By: LILA HEWITT on 10-26-2024 Phosphate [Mass/Vol] Serum or plasma alexa sphate measurement (mass/volume) 2.5-4.9 [facility] TSH DL <= 0.005 mIU/L QnOrde red By: LILA HEWITT on 10-26-2024 TSH Qn Third generation thy roid stimulating hormone (TSH) measurement 0.358-3.[address] [facility] Comment on above: NOTE-Dietary supplem ents containing high biotin levels may cause significantinterference with affected lab tests, including cardiovascular diagnostictests and hormone tests that use biotin technology. Incorrect test resultsmay be generated if there is biotin in the patients specimen. TSHLon 10-26-2024 TSHL 1.120 uIU/L Normal 0.358-3.[address] [facility] Comment on above: Result Comment: NOTE -Dietary supplements containing high biotin levels may cause significant interference with affected lab tests, including cardiovascular diagnostic tests and hormone tests that use biotin technology. Incorrect test results may be generated if there is biotin in the patients specimen. Performed By: #### I CEMENT MASON #### [facility] [address] [place], [place] [id number] Troponin I measurement by nd ghly sensitive enzyme immunoassayOrdered By: LILA HEWITT on 10-26-2024 Troponin I.cardiac High sensitivity method [Mass/Vol] Troponin I measurement by highly sensitive enzyme immunoassay [facility] UA w/Micrscopic-reflex cultu reon 10-26-2024 Appearance (U) CLEAR Normal Clear [facility] Comment on above: Performed By: #### U AMRC #### [facility] [address] [place] [address] Bilirubin Ql (U) 1 Abnormal Negative [facility] Comment on above: Performed By: #### U AMRC #### [address] [place], [place] [id number] Color (U) brown Normal Yellow [facility] Comment on above: Performed By: #### U AMRC #### [address] [place], [place] [id number] Glucose Ql (U) NORMAL Normal Negative [facility] Comment on above: Performed By: #### U AMRC #### [address] [place], [place] [id number] Hemoglobin Ql (U) Negative Normal Negative [facility] Comment on above: Performed By: #### U AMRC #### [address] [place] [address] Ketones Ql (U) Negative Normal Negative [facility] Comment on above: Performed By: #### U AMRC #### [address] [place], [place] [address] Leukocytes Esterase TRACE Abnormal Negative [facility] Comment on above: Performed By: #### U AMRC #### [address] [place], [place] [id number] Nitrite Ql (U) Negative Normal Negative [facility] Comment on above: Performed By: #### U AMRC #### [facility] [address] [place], [place] [id number] pH (U) 5 [pH] Normal [facility] Comment on above: Performed By: #### U AMRC #### [address] [id number] Protein Ql (U) [address] [facility] Comment on above: Performed By: #### U AMRC #### [address] [address] Specific gravity (U) [Rel density] 1.025 Normal 1.015-1.[address] [facility] Comment on above: Performed By: #### U AMRC #### [address] [place] [address] Urobilinogen NORMAL Normal Normal-1.0 [facility] Comment on above: Performed By: #### U AMRC #### [address] [place], [place] [id number] CBC AND DIFFERENTIALon 10-13 ABSOLUTE BASOPHIL 0.1 x10*3/uL Normal 0.0-0.1 [facility] Comment on above: Performed By: #### 4 [id number] #### [address] [place] [address] ABSOLUTE EOSINOPHIL 0.2 x10*3/uL Normal 0.1-0.3 [facility] Comment on above: Performed By: #### 4 [id number] #### [address] [place] [address] ABSOLUTE IMMATURE GRANULOCYTES 0.0 x10*3/uL Normal 0.0-0.1 [facility] Comment on above: Performed By: #### 4 [id number] #### [place] [address] [place] ABSOLUTE LYMPH 1.6 x10*3/uL Normal 1.2-3.3 [facility] Comment on above: Performed By: #### 4 [id number] #### [address] ABSOLUTE MONO 0.6 x10*3/uL Normal 0.2-0.6 [facility] Comment on above: Performed By: #### 4 [id number] #### [address] ABSOLUTE NEUTROPHIL 8.3 x10*3/uL High 2.4-6.6 [facility] Comment on above: Performed By: #### 4 [id number] #### [address] Basophils/100 WBC (Bld) 0.7 % Normal [facility] Comment on above: Performed By: #### 4 [id number] #### [address] Eosinophils/100 WBC (Bld) 1.9 % Normal [facility] Comment on above: Performed By: #### 4 [id number] #### [address] Erythrocyte distribution width (RBC) [Ratio] 13.3 % Normal 11.5-14.5 [facility] Comment on above: Performed By: #### 4 [id number] #### [address] Hematocrit (Bld) [Volume fraction] 41.4 % Normal 37.7-51.1 [facility] Comment on above: Performed By: #### 4 [id number] #### [address] Hemoglobin (Bld) [Mass/Vol] 13.9 g/dL Normal 12.8-17.7 [facility] Comment on above: Performed By: #### 4 [id number] #### [address] Immature granulocytes/100 WBC (Bld) 0.4 % Normal [facility] Comment on above: Performed By: #### 4 [id number] #### [address] Lymphocytes/100 WBC (Bld) 15.2 % Normal [facility] Comment on above: Performed By: #### 4 [id number] #### [address] MCH (RBC) [Entitic mass] 27.4 pg Normal 27.0-34.2 [facility] Comment on above: Performed By: #### 4 [id number] #### [address] MCHC (RBC) [Mass/Vol] 33.6 g/dL Normal 31.4-36.2 [facility] Comment on above: Performed By: #### 4 [id number] #### [address] MCV (RBC) [Entitic vol] 81.5 fL Normal 80.6-99 [facility] Comment on above: Performed By: #### 4 [id number] #### [address] Monocytes/100 WBC (Bld) 5.2 % Normal [facility] Comment on above: Performed By: #### 4 [id number] #### [address] Neutrophils/100 WBC (Bld) 76.6 % Normal [facility] Comment on above: Performed By: #### 4 [id number] #### [address] NUCLEATED RED BLOOD CELLS AUTO 0.0 % Normal 0.0-1.0 [facility] Comment on above: Performed By: #### 4 [id number] #### [address] PLATELET COUNT 249 x10*3/uL Normal 150-400 [facility] Comment on above: Performed By: #### 4 [id number] #### [address] RED BLOOD CELL COUNT 5.08 x10*6/uL Normal 3.70-5.70 G [facility] Comment on above: Performed By: #### 4 [id number] #### [address] WHITE BLOOD CELLS 10.8 x10*3/uL High 4.3-10.3 [facility] Comment on above: Performed By: #### 4 [id number] #### [address] COMPREHENSIVE METABOLIC PANE Branden 10-13-2024 Albumin [Mass/Vol] 3.4 g/dL Low 3.5-5.0 [facility] Comment on above: Performed By: #### 4 [id number], [id number], [id number] #### [address] ALK PHOS 125 U/L Normal 24-126 [facility] Comment on above: Performed By: #### 4 [id number], [id number], [id number] #### [address] ALT [Catalytic activity/Vol] 16 U/L Normal 4-50 [facility] Comment on above: Performed By: #### 4 [id number], [id number], [id number] #### [address] AST [Catalytic activity/Vol] 19 U/L Normal 3-55 [facility] Comment on above: Performed By: #### 4 [id number], [id number], [id number] #### [address] Bilirubin [Mass/Vol] 0.7 mg/dL Normal 0.2-1.6 [facility] Comment on above: Performed By: #### 4 [id number], [id number], [id number] #### [place] [address] Calcium [Mass/Vol] 9.0 mg/dL Normal 8.4-10.4 [facility] Comment on above: Performed By: #### 4 [id number], [id number], [id number] #### [address] Chloride [Moles/Vol] 106 mmol/L Normal 96-109 [facility] Comment on above: Performed By: #### 4 [id number], [id number], [id number] #### [address] CO2 [Moles/Vol] 24 mmol/L Normal 22-30 [facility] Comment on above: Performed By: #### 4 [id number], [id number], [id number] #### [address] [place], [place] [address] Creatinine [Mass/Vol] 1.00 mg/dL Normal 0.66-1.25 [facility] Comment on above: Performed By: #### 4 [id number], [id number], [id number] #### [address] [place] [address] [place] GLOMERULAR FILTRATION RATE ML/MIN/1.73 SQ M.PREDICTED 91.1 mL/min/1.73m*2 Normal >=60.0 [facility] Comment on above: Result Comment: eGFR calculation based on the Chronic Kidney Disease Epidemiology Collaboration (CKD-EPI) equation refit without adjustment for race. Categories in Chronic Kidney Disease (CKD) Category: GFR(mL/min/1.73m^2) Interpretation: G1* 90 or greater Normal or high G2* 60-89 Mild decrease G3a 45-59 Mild to moderate decrease G3b 30-44 Moderate to severe decrease G4 15-29 Severe decrease G5 14 or less Kidney failure *G1&G2: In the absence of evidence of kidney damage, neither GFR category G1 nor G2 fulfill the criteria for CKD Kidney Int Suppl.2013;3:1-150 Performed By: #### 4 [id number], [id number], [id number] #### [address] [place], [place] [address] Glucose [Mass/Vol] 105 mg/dL High 65-100 [facility] [employer] [facility] Comment on above: Performed By: #### 4 [id number], [id number], [id number] #### [address] [place] [address] [facility] Potassium [Moles/Vol] 3.4 mmol/L Low 3.6-5.1 [facility] Comment on above: Performed By: #### Vannesa [id number], [id number], [id number] #### [address] [place] [address] [facility] Protein [Mass/Vol] 6.3 g/dL Normal 6.3-8.2 [facility] [employer] [facility] Comment on above: Performed By: #### 4 [id number], [id number], [id number] #### [address] Sodium [Moles/Vol] 137 mmol/L Normal 135-147 [facility] Comment on above: Performed By: #### 4 [id number], [id number], [id number] #### [address] Urea nitrogen [Mass/Vol] 13 mg/dL Normal 8-26 [facility] Comment on above: Performed By: #### 4 [id number], [id number], [id number] #### [address] HEMOGLOBIN A1Con 10-13-2024 HbA1c (Bld) [Mass fraction] 5.7 % High 4.8-5.6 [facility] Comment on above: Order Comment: Perfo rmed at: - [facility] [address] [id number] Staking Technician: Madhu Ruiz PhD, Phone: [phone] Result Comment: Pred iabetes: 5.7 - 6.4 Diabetes: >6.4 Glycemic control for adults with diabetes: <7.0 Performed By: #### 4 [id number] #### [facility] LIPID PANELon 10-13-2024 Cholesterol [Mass/Vol] 162 mg/dL Normal <=200 [facility] Comment on above: Performed By: #### 4 [id number], [id number], [id number] #### [address] Cholesterol in HDL [Mass/Vol] 52.0 mg/dL Normal 40.0-59.9 [facility] Comment on above: Performed By: #### 4 [id number], [id number], [id number] #### [address] LDL CHOLESTEROL CALCULATED 90 mg/dL Normal <=100 [facility] Comment on above: Result Comment: LDL REFERENCE RANGE: Optimal <100 mg/dl Near Optimal 100-129 mg/dL Borderline High 130-159 mg/dL High 160-189 mg/dL Very High >=190 mg/dL Performed By: #### 4 [id number], [id number], [id number] #### [place] [address] Triglyceride [Mass/Vol] 101 mg/dL Normal <=150 [facility] Comment on above: Performed By: #### 4 [id number], [id number], [id number] #### [address] VLDL CHOLESTEROL CARLOTTA 20 mg/dL Normal <=41 [facility] Comment on above: Performed By: #### 4 [id number], [id number], [id number] #### [address] TSHon 10-13-2024 TSH 2.660 uIU/mL Normal 0.465-4.68 0 [facility] Comment on above: Performed By: #### 4 [id number], [id number], [id number] #### [address] BASIC METABOLIC PANELon 09-06 Anion gap [Moles/Vol] 6 mmol/L Low 8-12 [facility] Comment on above: Performed By: #### 4 [id number], [id number], [id number] #### [facility] [address] [place] [address] Calcium [Mass/Vol] 9.3 mg/dL Normal 8.4-10.4 [facility] Comment on above: Performed By: #### 4 [id number], [id number], [id number] #### [facility] [address] [place] [address] Chloride [Moles/Vol] 108 mmol/L Normal 96-109 [facility] Comment on above: Performed By: #### 4 [id number], [id number], [id number] #### [facility] [address] [place] [address] CO2 [Moles/Vol] 26 mmol/L Normal 22-30 [facility] Comment on above: Performed By: #### 4 [id number], [id number], [id number] #### [facility] [address] [place] [address] Creatinine [Mass/Vol] 1.05 mg/dL Normal 0.66-1.25 [facility] Comment on above: Performed By: #### 4 [id number], [id number], [id number] #### [facility] [address] [place] [address] GLOMERULAR FILTRATION RATE ML/MIN/1.73 SQ M.PREDICTED 85.9 mL/min/1.73m*2 Normal >=60.0 [facility] Comment on above: Result Comment: eGFR calculation based on the Chronic Kidney Disease Epidemiology Collaboration (CKD-EPI) equation refit without adjustment for race. Categories in Chronic Kidney Disease (CKD) Category: GFR(mL/min/1.73m^2) Interpretation: G1* 90 or greater Normal or high G2* 60-89 Mild decrease G3a 45-59 Mild to moderate decrease G3b 30-44 Moderate to severe decrease G4 15-29 Severe decrease G5 14 or less Kidney failure *G1&G2: In the absence of evidence of kidney damage, neither GFR category G1 nor G2 fulfill the criteria for CKD Kidney Int Suppl.2013;3:1-150 Performed By: #### 4 [id number], [id number], [id number] #### [facility] [address] [place] [address] Glucose [Mass/Vol] 122 mg/dL High 65-100 [facility] Comment on above: Performed By: #### [place] [id number], [id number], [id number] #### [facility] [address] [place] [address] Potassium [Moles/Vol] 3.5 mmol/L Low 3.6-5.1 [facility] Comment on above: Performed By: #### [place] [id number], [id number], [id number] #### [facility] [address] [place] [address] Sodium [Moles/Vol] 140 mmol/L Normal 135-147 [facility] Comment on above: Performed By: #### [place] [id number], [id number], [id number] #### [facility] [address] [place] [address] Urea nitrogen [Mass/Vol] 14 mg/dL Normal 8-26 [facility] Comment on above: Performed By: #### 4 [id number], [id number], [id number] #### [facility] [address] [place] [address] Basic Metabolic Panel aka Ch em 8on 10-02-2024 Anion gap [Moles/Vol] 6 mmol/L Low 8 - 12 mmol/L [facility] Calcium [Mass/Vol] 9.3 mg/dL 8.4 - 10. 4 mg/dL [facility] Calcium hydrogen phosphate dihydrate crystals LM Ql (Urine sed) 14 mg/dL 8 - 26 mg/dL [facility] Chloride [Moles/Vol] 108 mmol/L 96 - 10 9 mmol/L [facility] CO2 (BldMV) [Moles/Vol] 26 mmol/L 22 - 30 mmol/L [facility] Creatinine [Mass/Vol] 1.05 mg/dL 0.66 - 1.25 mg/dL [facility] GFR/1.73 sq M.predicted among non-blacks MDRD (S/P/Bld) [Vol rate/Area] 85.9 mL/min/{1.73_m2} - PINF [facility] Comment on above: eGFR calculation bas ed on the Chronic Kidney Disease Epidemiology Collaboration (CKD-EPI) equation refit without adjustment for race. Categories in Chronic Kidney Disease (CKD) Category: GFR(mL/min/1.73m^2) Interpretation: G1* 90 or greater Normal or high G2* 60-89 Mild decrease G3a 45-59 Mild to moderate decrease G3b 30-44 Moderate to severe decrease G4 15-29 Severe decrease G5 14 or less Kidney failure *G1&G2: In the absence of evidence of kidney damage, neither GFR category G1 nor G2 fulfill the criteria for CKD Kidney Int Suppl.2013;3:1-150 Glucose [Mass/Vol] 122 mg/dL High 65 - 100 mg/dL [facility] Interpretation and review of laboratory results Abnormal [facility] Potassium [Moles/Vol] 3.5 mmol/L Low 3.6 - 5.1 mmol/L [facility] Sodium [Moles/Vol] 140 mmol/L 135 - 147 mmol/L [facility] CBC AND DIFFERENTIALon 10-02 ABSOLUTE BASOPHIL 0.0 x10*3/uL Normal 0.0-0.1 [facility] Comment on above: Performed By: #### 4 [id number] #### [facility] [address] [place] [address] ABSOLUTE EOSINOPHIL 0.1 x10*3/uL Normal 0.1-0.3 [facility] Comment on above: Performed By: #### 4 [id number] #### [facility] [address] [place] [address] ABSOLUTE IMMATURE GRANULOCYTES 0.0 x10*3/uL Normal 0.0-0.1 [facility] Comment on above: Performed By: #### 4 [id number] #### [facility] [address] [place] [address] ABSOLUTE LYMPH 1.2 x10*3/uL Normal 1.2-3.3 [facility] Comment on above: Performed By: #### 4 [id number] #### [facility] [address] [place] [address] ABSOLUTE MONO 0.6 x10*3/uL Normal 0.2-0.6 [facility] Comment on above: Performed By: #### 4 [id number] #### [facility] [address] [place] [address] ABSOLUTE NEUTROPHIL 8.3 x10*3/uL High 2.4-6.6 [facility] Comment on above: Performed By: #### 4 [id number] #### [facility] [address] [place] [address] Basophils/100 WBC (Bld) 0.2 % Normal [facility] Comment on above: Performed By: #### 4 [id number] #### [facility] [address] [place] [address] Eosinophils/100 WBC (Bld) 0.9 % Normal [facility] Comment on above: Performed By: #### 4 [id number] #### [facility] [address] [place] [address] Erythrocyte distribution width (RBC) [Ratio] 13.5 % Normal 11.5-14.5 [facility] Comment on above: Performed By: #### 4 [id number] #### [facility] [address] [place] [address] Hematocrit (Bld) [Volume fraction] 44.5 % Normal 37.7-51.1 [facility] Comment on above: Performed By: #### 4 [id number] #### [facility] [address] [place] [address] Hemoglobin (Bld) [Mass/Vol] 14.3 g/dL Normal 12.8-17.7 [facility] Comment on above: Performed By: #### 4 [id number] #### [facility] [address] [place] [address] Immature granulocytes/100 WBC (Bld) 0.1 % Normal [facility] Comment on above: Performed By: #### 4 [id number] #### [facility] [address] [place] [address] Lymphocytes/100 WBC (Bld) 12.0 % Normal [facility] Comment on above: Performed By: #### 4 [id number] #### [facility] [address] [place] [address] MCH (RBC) [Entitic mass] 27.2 pg Normal 27.0-34.2 [facility] Comment on above: Performed By: #### 4 [id number] #### [facility] [address] [place] [address] MCHC (RBC) [Mass/Vol] 32.1 g/dL Normal 31.4-36.2 [facility] Comment on above: Performed By: #### 4 [id number] #### [facility] [address] [place] [address] MCV (RBC) [Entitic vol] 84.8 fL Normal 80.6-99 [facility] Comment on above: Performed By: #### 4 [id number] #### [facility] [address] [place] [address] Monocytes/100 WBC (Bld) 6.1 % Normal [facility] Comment on above: Performed By: #### 4 [id number] #### [facility] [address] [place] [address] Neutrophils/100 WBC (Bld) 80.7 % Normal [facility] Comment on above: Performed By: #### 4 [id number] #### [facility] [address] [place] [address] PLATELET COUNT 220 x10*3/uL Normal 150-400 [facility] Comment on above: Performed By: #### 4 [id number] #### [facility] [address] [place] [address] RED BLOOD CELL COUNT 5.25 x10*6/uL Normal 3.70-5.70 [facility] Comment on above: Performed By: #### 4 [id number] #### [facility] [address] [place] [address] WHITE BLOOD CELLS 10.2 x10*3/uL Normal 4.3-10.3 [facility] Comment on above: Performed By: #### 4 [id number] #### [facility] [address] [facility] [place] [address] CBC with differentialOrdered By: Background Lab on 10-02-2024 Absolute Immature Granulocytes 0 [facility] Age [Time] 84.8 fL 80.6 - 99 fL [facility] Age [Time] 27.2 pg 27.0 - 34.2 pg [facility] Age [Time] 32.1 g/dL 31.4 - 36.2 g/dL [facility] B. burgdorferi IgM IB Ql (CSF) 12 % [facility] Basophils (Bld) [#/Vol] 0 10*3/uL [facility] Basophils/100 WBC (Body fld) 0.2 % [facility] Eosinophils (Bld) [#/Vol] 1.2 10*3/uL [facility] Eosinophils (Bld) [#/Vol] 0.6 10*3/uL [facility] Eosinophils (Bld) [#/Vol] 0.1 10*3/uL [facility] Eosinophils/100 WBC (Bld) 0.9 % [facility] Erythrocyte distribution width (RBC) [Ratio] 13.5 % 11.5 - 14.5 % [facility] Hematocrit (Bld) [Volume fraction] 44.5 % 37.7 - 51.1 % [facility] Hexanoylglycine (U) [Moles/Vol] 14.3 g/dL 12.8 - 17.7 g/dL [facility] Immature granulocytes/100 WBC (Bld) 0.1 % [facility] Interpretation and review of laboratory results Abnormal [facility] Monocytes/100 WBC (Bld) 6.1 % [facility] Neurotensin (P) [Mass/Vol] 80.7 % [facility] Neutrophils (Bld) [#/Vol] 8.3 10*3/uL High [facility] Platelets (Bld) [#/Vol] 220 10*3/uL [facility] RBC (Bld) [#/Vol] 5.25 10*6/uL [facility] WBC (Bld) [#/Vol] 10.2 10*3/uL [facility] D-DIMERon 10-02-2024 D-DIMER QUANTITATIVE /[facility] 0.35 ?g/ml FEU Normal <=0.50 [facility] Comment on above: Result Comment: Diag nostic Cutoff (PE/DVT): <=0.50 ?g/ml FEU \X09\ The result of this test is intended for use in conjunction with a clinical pretest probability assessment model to exclude pulmonary embolism (PE) and deep venous thrombosis (DVT) in patients suspected of PE or DVT. Performed By: #### 4 [id number], [id number], [id number] #### [facility] [address] D-dimer, quantitativeon 09-06 Fibrin D-dimer FEU (PPP) [Mass/Vol] 0.35 [facility] Comment on above: Diagnostic Cutoff (P E/DVT): <=0.50 g/ml FEU The result of this test is intended for use in conjunction with a clinical pretest probability assessment model to exclude pulmonary embolism (PE) and deep venous thrombosis (DVT) in patients suspected of PE or DVT. Interpretation and review of laboratory results Normal [facility] MAGNESIUMon 10-02-2024 Magnesium [Mass/Vol] 2.0 mg/dL Normal 1.6-2.3 [facility] Comment on above: Performed By: #### 4 [id number], [id number], [id number] #### [facility] [address] [place] [address] Magnesiumon 10-02-2024 Magnesium [Mass/Vol] 2 mg/dL 1.6 - 2 .3 mg/dL [facility] Magnesium [Mass/Vol]on 10-02 Interpretation and review of laboratory results Normal [facility] No Panel Informationon 10-02 [facility] TROPONIN I SERIESon 10-03-19 Troponin I.cardiac [Mass/Vol] ng/mL Normal <=0.033 [facility] Comment on above: Result Comment: Nega tive: No detectable troponin-I. Performed By: #### 4 [id number], [id number] #### [facility] [address] [place] [address] Troponin I - Series (X 3)on 10-02-2024 Interpretation and review of laboratory results Normal [facility] Troponin I.cardiac [Mass/Vol] ng/mL NINF - 0.033 ng/mL [facility] Comment on above: Negative: No detectable troponin-I. [facility] XR CHEST 1 VIEWon 10-02-2024 XR CHEST 1 VIEW EXAM: XR CHEST 1 VIE W HISTORY: SOB COMPARISON: None. TECHNIQUE: Portable chest done at 5:17 PM. FINDINGS: Trachea, mediastinum and heart size are unremarkable. No infiltrate or nodule or effusion or pneumothorax is noted. Diaphragm and bony elements are intact. IMPRESSION: Nonacute portable chest. complain of shortness of breath and feeling like he cannot get a full breath. Pt denies any chest pain. EMS reporting patient has been having difficulty getting a deep breath for a couple weeks. 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 Normal [facility] XR Chest Single viewon 10-02 Nonacute portable chest. RAFAT EXAM: XR CHEST 1 VIE W HISTORY: SOB COMPARISON: None. TECHNIQUE: Portable chest done at 5:17 PM. FINDINGS: Trachea, mediastinum and heart size are unremarkable. No infiltrate or nodule or effusion or pneumothorax is noted. Diaphragm and bony elements are intact. Vivek Taylor, DO - 10/02/2024 EXAM: XR CHEST 1 VIEW HISTORY: SOB COMPARISON: None. TECHNIQUE: Portable chest done at 5:17 PM. FINDINGS: Trachea, mediastinum and heart size are unremarkable. No infiltrate or nodule or effusion or pneumothorax is noted. Diaphragm and bony elements are intact. IMPRESSION: Nonacute portable chest. [facility] Radiology Study observation (narrative) [facility] XR Chest Single viewOrdered By: Vivek Pettit on 10-02-2024 [facility] Work Phone: LIPID PROFILEon 08-24-2024 Lipid 1996 panel Normal [facility] Comment on above: Result Comment: LIPI D PROFILE SEE SCANNED REPORT Performed By: #### 2 [id number] #### [facility],[address] [place] [address] PSA CANCER SCREENING (G0103) on 08-24-2024 PSA CANCER SCREENING (G0103) Normal [facility] Comment on above: Result Comment: SEE SCANNED REPORT Performed By: #### 2 12319 #### [facility],[address] [place] [address] CBC + DIFFon 08-19-2024 Baso # 0.02 x10EE3/UL Normal 0.00 - 0.10 [facility] Comment on above: Performed By: #### 2 33483 #### [facility],[address] [place] [address] Basophils/100 WBC (Bld) 0.3 % Normal 0.0 - 2.0 [facility] Comment on above: Performed By: #### 2 95346 #### [facility],[address] [place] [address] CBC + DIFF Normal [facility] Comment on above: Result Comment: CBC- COMPLETE BLOOD COUNT Performed By: #### 2 29077 #### [facility],[address] [place] [address] EO # 0.13 x10EE3/UL Normal 0.00 - 0.50 [facility] Comment on above: Performed By: #### 2 08507 #### [facility],[address] [place] [address] Eosinophils/100 WBC (Bld) 2.0 % Normal 0.0 - 7.0 [facility] Comment on above: Performed By: #### 2 01841 #### [place] [address] Erythrocyte distribution width (RBC) [Ratio] 14.4 % Normal 12.0 - 15.6 [facility] Comment on above: Performed By: #### 2 10310 #### [place] [id number] Hematocrit (Bld) [Volume fraction] 40.1 % Normal 40.0 - 52.0 [facility] Comment on above: Performed By: #### 2 13816 #### [facility],[address] [place], [place] [address] Hemoglobin (Bld) [Mass/Vol] 13.4 g/dL Normal 13.0 - 17.5 [facility] Comment on above: Performed By: #### 2 22166 #### [facility],[address] [place] [address] Lymph # 1.79 x10EE3/UL Normal 0.80 - 2.80 [facility] Comment on above: Performed By: #### 2 48931 #### [facility],[address] [place] [address] Lymphocytes/100 WBC (Bld) 26.7 % Normal 20.0 - 45.0 [facility] Comment on above: Performed By: #### 2 15389 #### [facility],[address] [place] [address] 11471 MANUAL DIFF N/A Normal [facility] Comment on above: Performed By: #### 2 11380 #### [facility],[address] [place] [address] 40804 MCH (RBC) [Entitic mass] 28 pg Normal 27 - 33 [facility] Comment on above: Performed By: #### 2 22519 #### [facility],[address] [place] [address] 05181 MCHC 34 X10 3 Normal 32 - 36 [facility] Comment on above: Performed By: #### 2 06575 #### [facility],[address] [place] [address] 17729 MCV (RBC) [Entitic vol] 82 fL Normal 81 - 98 [facility] Comment on above: Performed By: #### 2 33337 #### [facility],[address] [place] [address] 66245 Broome # 0.41 x10EE3/UL Normal 0.20 - 1.00 [facility] Comment on above: Performed By: #### 2 64670 #### [facility],[address] [place], [place] [address] MONOS % 6.1 % Normal 0.0 - 10.0 [facility] Comment on above: Performed By: #### 2 55371 #### [facility],[address] [place] [address] Morphology Anuel (Bld) [Interp] N/A Normal [facility] Comment on above: Performed By: #### 2 17830 #### [facility],[address] [place] [address] Neut # 4.34 x10EE3/UL Normal 1.50 - 7.10 [facility] Comment on above: Performed By: #### 2 50561 #### [facility],[address] [place] [address] Neutrophils/100 WBC (Bld) 64.9 % Normal 46.0 - 76.0 [facility] Comment on above: Performed By: #### 2 88723 #### [facility],[address] [place] [address] PLATELET 230 x10EE3/UL Normal 150 - 450 [facility] Comment on above: Performed By: #### 2 40939 #### [facility],[address] [place] [address] Platelet mean volume (Bld) [Entitic vol] 7.1 fL Normal 6.4 - 10.5 [facility] Comment on above: Result Comment: AUTO MATED DIFFERENTIAL Performed By: #### 2 94493 #### [facility],[address] [place], [place] [address] RBC 4.87 x 10EE6/UL Normal 4.50 - 6.00 [facility] Comment on above: Performed By: #### 2 21739 #### [facility],[address] [place] [address] 13176 WBC 6.7 x 10EE3/UL Normal 4.5 - 10.8 [facility] Comment on above: Performed By: #### 2 05254 #### [facility],[address] [place] [address] 70312 CMP with eGFRon 08-19-2024 AGE 49 years Normal [facility] Comment on above: Performed By: #### 2 18569 #### [facility],[address] [place] [address] 11024 Albumin [Mass/Vol] 2.6 g/dL Low 3.4 - 5.0 [facility] Comment on above: Performed By: #### 2 87189 #### [facility],[address] [place], [place] [address] Albumin/Globulin [Mass ratio] 0.7 {ratio} Low 0.9 - 1.6 [facility] Comment on above: Performed By: #### 2 87209 #### [facility],[address] [place] [address] 50741 ALK PHOS 131 U/L High 46 - 116 [facility] Comment on above: Performed By: #### 2 86410 #### [facility],[address] [place] [address] 12780 ALT [Catalytic activity/Vol] 19 U/L Normal 16 - 63 [facility] Comment on above: Performed By: #### 2 90120 #### [facility],[address] [place] [address] 48839 Anion gap [Moles/Vol] 15 mmol/L Normal 10 - 20 [facility] Comment on above: Performed By: #### 2 80152 #### [facility],[address] [place] [address] 71418 AST [Catalytic activity/Vol] 13 U/L Low 15 - 37 [facility] Comment on above: Performed By: #### 2 67114 #### [facility],[address] [place] [address] 49552 B/C RATIO 8 ratio Normal 0 - 30 [facility] Comment on above: Performed By: #### 2 04514 #### [facility],[address] [place] [address] 22499 Bilirubin [Mass/Vol] 0.4 mg/dL Normal 0.2 - 1.0 [facility] Comment on above: Performed By: #### 2 96578 #### [facility],[address] [place] [address] 48051 Calcium [Mass/Vol] 8.4 mg/dL Low 8.5 - 10.1 [facility] Comment on above: Performed By: #### 2 51502 #### [facility],[address] [place] [address] 53190 Chloride [Moles/Vol] 105 mmol/L Normal 98 - 107 [facility] Comment on above: Performed By: #### 2 35024 #### [facility],[address] [place] [address] 66074 CMP with eGFR Normal [facility] Comment on above: Result Comment: COMP REHENSIVE METABOLIC PANEL Performed By: #### 2 07453 #### [facility],[address] [place] [address] 09369 CO2 [Moles/Vol] 26.2 mmol/L Normal 21.0 - 32.0 [facility] Comment on above: Performed By: #### 2 95824 #### [facility],[address] [place] [address] 94546 Creatinine [Mass/Vol] 1.25 mg/dL Normal 0.70 - 1.30 [facility] Comment on above: Performed By: #### 2 45574 #### [facility],[address] [place] [address] 19352 GFR/1.73 sq M.predicted among non-blacks MDRD (S/P/Bld) [Vol rate/Area] mL/min/{1.73_m2} Normal 60 - 999 [facility] Comment on above: Performed By: #### 2 12694 #### [facility],[address] [place] [address] 36912 Result Comment: ACCO RDING TO THE NATIONAL KIDNEY DISEASE EDUCATION PROGRAM(NKDE), A NORMAL eGFR IS A VALUE GREATER THAN OR EQUAL TO 60 ML/MIN/1.73 SQ METERS. CHRONIC KIDNEY DISEASE: <60mL/MIN/1.73 SQ METERS KIDNEY FAILURE: <15mL/MIN/1.73 SQ METERS THIS TEST SHOULD ONLY BE USED FOR PATIENTS 18 YEARS OF AGE AND OLDER. Globulin (S) [Mass/Vol] 3.8 g/dL Normal 1.5 - 3.8 [facility] Comment on above: Performed By: #### 2 83942 #### [facility],[address] [place] [address] 09514 Glucose [Mass/Vol] 86 mg/dL Normal 74 - 106 [facility] Comment on above: Performed By: #### 2 58163 #### [facility],[address] [place] [address] 22682 Potassium [Moles/Vol] 3.7 mmol/L Normal 3.5 - 5.1 [facility] Comment on above: Performed By: #### 2 04682 #### [facility],[address] [place] [address] 04804 Protein [Mass/Vol] 6.4 g/dL Normal 6.4 - 8.2 [facility] Comment on above: Performed By: #### 2 31435 #### [facility],[address] [place] [address] 02180 Sodium [Moles/Vol] 142 mmol/L Normal 136 - 145 [facility] Comment on above: Performed By: #### 2 52140 #### [facility],[address] [place] [address] 98997 Urea nitrogen [Mass/Vol] 10 mg/dL Normal 7 - 18 [facility] Comment on above: Performed By: #### 2 70353 #### [facility],[address] [place] [address] 97521 CBC + DIFFon 08-12-2024 Baso # 0.01 x10EE3/UL Normal 0.00 - 0.10 [facility] Comment on above: Performed By: #### 2 66923 #### [facility],[address] [place] [address] 16602 Basophils/100 WBC (Bld) 0.2 % Normal 0.0 - 2.0 [facility] Comment on above: Performed By: #### 2 65662 #### [facility],[address] [place] [address] 57672 CBC + DIFF Normal [facility] Comment on above: Result Comment: CBC- COMPLETE BLOOD COUNT Performed By: #### 2 18881 #### [facility],[address] [place] [address] 64990 EO # 0.11 x10EE3/UL Normal 0.00 - 0.50 [facility] Comment on above: Performed By: #### 2 71809 #### [facility],[address] [place] [address] 99794 Eosinophils/100 WBC (Bld) 1.1 % Normal 0.0 - 7.0 [facility] Comment on above: Performed By: #### 2 81387 #### [facility],[address] [place] [address] 48751 Erythrocyte distribution width (RBC) [Ratio] 15.0 % Normal 12.0 - 15.6 [facility] Comment on above: Performed By: #### 2 93047 #### [facility],[address] [place] [address] 03147 Hematocrit (Bld) [Volume fraction] 43.2 % Normal 40.0 - 52.0 [facility] Comment on above: Performed By: #### 2 13296 #### [facility],[address] [place] [address] 46290 Hemoglobin (Bld) [Mass/Vol] 14.6 g/dL Normal 13.0 - 17.5 [facility] Comment on above: Performed By: #### 2 04122 #### [facility],[address] [place] [address] Lymph # 2.22 x10EE3/UL Normal 0.80 - 2.80 [facility] Comment on above: Performed By: #### 2 80360 #### [facility],[address] [place] [address] Lymphocytes/100 WBC (Bld) 23.9 % Normal 20.0 - 45.0 [facility] Comment on above: Performed By: #### 2 53045 #### [facility],[address] [place] [address] MANUAL DIFF N/A Normal [facility] Comment on above: Performed By: #### 2 16020 #### [facility],[address] [place] [address] MCH (RBC) [Entitic mass] 28 pg Normal 27 - 33 [facility] Comment on above: Performed By: #### 2 21358 #### [facility],[address] [place] [address] MCHC 34 X10 3 Normal 32 - 36 [facility] Comment on above: Performed By: #### 2 38431 #### [facility],[address] [place] [address] MCV (RBC) [Entitic vol] 84 fL Normal 81 - 98 [facility] Comment on above: Performed By: #### 2 75301 #### [facility],[address] [place] [address] Broome # 0.51 x10EE3/UL Normal 0.20 - 1.00 [facility] Comment on above: Performed By: #### 2 23275 #### [facility],[address] [place] [address] MONOS % 5.5 % Normal 0.0 - 10.0 [facility] Comment on above: Performed By: #### 2 79136 #### [facility],[address] [place] [address] 97340 Morphology Anuel (Bld) [Interp] N/A Normal [facility] Comment on above: Performed By: #### 2 64853 #### [facility],[address] [place] [address] 99116 Neut # 6.43 x10EE3/UL Normal 1.50 - 7.10 [facility] Comment on above: Performed By: #### 2 12198 #### [facility],[address] [place] [address] 82348 Neutrophils/100 WBC (Bld) 69.2 % Normal 46.0 - 76.0 [facility] Comment on above: Performed By: #### 2 02599 #### [facility],[address] [place] [address] 43942 PLATELET 268 x10EE3/UL Normal 150 - 450 [facility] Comment on above: Performed By: #### 2 91392 #### [facility],[address] [place] [address] 35015 Platelet mean volume (Bld) [Entitic vol] 6.8 fL Normal 6.4 - 10.5 [facility] Comment on above: Result Comment: AUTO MATED DIFFERENTIAL Performed By: #### 2 79097 #### [facility],[address] [place] [address] 67631 RBC 5.17 x 10EE6/UL Normal 4.50 - 6.00 [facility] Comment on above: Performed By: #### 2 84589 #### [facility],[address] [place] [address] 57939 WBC 9.3 x 10EE3/UL Normal 4.5 - 10.8 [facility] Comment on above: Performed By: #### 2 23222 #### [facility],[address] [place] [address] 96709 TSH W/ REFLEX TO FREE T4on 0 2-05-2025 TSH Qn 1.31 m[IU]/L Normal 0.34 - 5.60 [facility] Comment on above: Performed By: #### 2 64968 #### [facility],[address] [place] [address] 27095 C-REACTIVE PROTEINon 024 CRP 0.25 mg/dl Normal 0.00 - 0.90 [facility] Comment on above: Performed By: #### 2 96422 #### [facility],[address] [place] [address] 21511 CBC + DIFFon 02-17-2024 Baso # 0.01 x10EE3/UL Normal 0.00 - 0.10 [facility] Comment on above: Performed By: #### 2 64696 #### [facility],[address] [place] [address] 39713 Basophils/100 WBC (Bld) 0.1 % Normal 0.0 - 2.0 [facility] Comment on above: Performed By: #### 2 25078 #### [facility],[address] [place] [address] 90018 CBC + DIFF Normal [facility] Comment on above: Result Comment: CBC- COMPLETE BLOOD COUNT Performed By: #### 2 14878 #### [facility],[address] [place] [address] 52743 EO # 0.20 x10EE3/UL Normal 0.00 - 0.50 [facility] Comment on above: Performed By: #### 2 77619 #### [facility],[address] [place] [address] 31712 Eosinophils/100 WBC (Bld) 2.1 % Normal 0.0 - 7.0 [facility] Comment on above: Performed By: #### 2 88674 #### [facility],[address] [place] [address] 27918 Erythrocyte distribution width (RBC) [Ratio] 15.5 % Normal 12.0 - 15.6 [facility] Comment on above: Performed By: #### 2 93979 #### [facility],[address] [place] [address] Hematocrit (Bld) [Volume fraction] 38.0 % Low 40.0 - 52.0 [facility] Comment on above: Performed By: #### 2 32893 #### [facility],[address] [place] [address] Hemoglobin (Bld) [Mass/Vol] 13.0 g/dL Normal 13.0 - 17.5 [facility] Comment on above: Performed By: #### 2 04516 #### [facility],[address] [place] [address] Lymph # 2.02 x10EE3/UL Normal 0.80 - 2.80 [facility] Comment on above: Performed By: #### 2 33635 #### [facility],[address] [place] [address] Lymphocytes/100 WBC (Bld) 21.3 % Normal 20.0 - 45.0 [facility] Comment on above: Performed By: #### 2 48404 #### [facility],[address] [place], [place] [address] MANUAL DIFF N/A Normal [facility] Comment on above: Performed By: #### 2 57791 #### [facility],[address] [place] [address] 80742 MCH (RBC) [Entitic mass] 28 pg Normal 27 - 33 [facility] Comment on above: Performed By: #### 2 92385 #### [facility],[address] [place] [address] 51465 MCHC 34 X10 3 Normal 32 - 36 [facility] Comment on above: Performed By: #### 2 07684 #### [facility],[address] [place] [address] 02021 MCV (RBC) [Entitic vol] 81 fL Normal 81 - 98 [facility] Comment on above: Performed By: #### 2 77697 #### [facility],[address] [place] [address] 01087 Broome # 0.49 x10EE3/UL Normal 0.20 - 1.00 [facility] Comment on above: Performed By: #### 2 03170 #### [facility],[address] [place] [address] 93417 MONOS % 5.2 % Normal 0.0 - 10.0 [facility] Comment on above: Performed By: #### 2 09347 #### [facility],[address] [place] [address] 90743 Morphology Anuel (Bld) [Interp] N/A Normal [facility] Comment on above: Performed By: #### 2 83309 #### [facility],[address] [place] [address] 92371 Neut # 6.79 x10EE3/UL Normal 1.50 - 7.10 [facility] Comment on above: Performed By: #### 2 28931 #### [facility],[address] [place] [address] 69987 Neutrophils/100 WBC (Bld) 71.4 % Normal 46.0 - 76.0 [facility] Comment on above: Performed By: #### 2 23723 #### [facility],[address] [place] [address] 75922 PLATELET 223 x10EE3/UL Normal 150 - 450 [facility] Comment on above: Performed By: #### 2 66295 #### [facility],[address] [place] [address] 48399 Platelet mean volume (Bld) [Entitic vol] 6.5 fL Normal 6.4 - 10.5 [facility] Comment on above: Result Comment: AUTO MATED DIFFERENTIAL Performed By: #### 2 18313 #### [facility],[address] [place] [address] 49394 RBC 4.68 x 10EE6/UL Normal 4.50 - 6.00 [facility] Comment on above: Performed By: #### 2 64690 #### [facility],[address] [place] [address] 53754 WBC 9.5 x 10EE3/UL Normal 4.5 - 10.8 [facility] Comment on above: Performed By: #### 2 01379 #### [facility],[address] [place], [place] [address] CMP with eGFRon 02-17-2024 AGE 49 years Normal [facility] Comment on above: Performed By: #### 2 79479 #### [facility],[address] [place] [address] 76732 Albumin [Mass/Vol] 2.4 g/dL Low 3.4 - 5.0 [facility] Comment on above: Performed By: #### 2 70098 #### [facility],[address] [place] [address] Albumin/Globulin [Mass ratio] 0.6 {ratio} Low 0.9 - 1.6 [facility] Comment on above: Performed By: #### 2 84910 #### [facility],[address] [place] [address] 57383 ALK PHOS 140 U/L High 46 - 116 [facility] Comment on above: Performed By: #### 2 [id number] #### [facility],[address] [place] [address] ALT [Catalytic activity/Vol] 25 U/L Normal 16 - 63 [facility] Comment on above: Performed By: #### 2 99832 #### [address] [address] Anion gap [Moles/Vol] 14 mmol/L Normal 10 - 20 [facility] Comment on above: Performed By: #### 2 57650 #### [facility],[address] [place] [address] 63354 AST [Catalytic activity/Vol] 13 U/L Low 15 - 37 [facility] Comment on above: Performed By: #### 2 76881 #### [address] [address] B/C RATIO 11 ratio Normal 0 - 30 [facility] Comment on above: Performed By: #### 2 82981 #### [facility],[address] [place] [address] 62320 Bilirubin [Mass/Vol] 0.3 mg/dL Normal 0.2 - 1.0 [facility] Comment on above: Performed By: #### 2 30612 #### [facility],[address] [place] [address]39 Calcium [Mass/Vol] 8.7 mg/dL Normal 8.5 - 10.1 [facility] Comment on above: Performed By: #### 2 86474 #### [facility],[address] [place] [address] 99530 Chloride [Moles/Vol] 107 mmol/L Normal 98 - 107 [facility] Comment on above: Performed By: #### 2 93891 #### [facility],[address] [place] [address] 29186 CMP with eGFR Normal [facility] Comment on above: Result Comment: COMP REHENSIVE METABOLIC PANEL Performed By: #### 2 19763 #### [facility],[address] [place] [address] 11860 CO2 [Moles/Vol] 27.0 mmol/L Normal 21.0 - 32.0 [facility] Comment on above: Performed By: #### 2 92291 #### [facility],[address] [place] [address]602 Creatinine [Mass/Vol] 1.28 mg/dL Normal 0.70 - 1.30 [facility] Comment on above: Performed By: #### 2 22758 #### [facility],[address] [place] [address] 03036 eGFR 59 ML/MINUTE Low 60 - 999 [facility] Comment on above: Performed By: #### 2 64533 #### [facility],[address] [place] [address]154 GFR/1.73 sq M.predicted among non-blacks MDRD (S/P/Bld) [Vol rate/Area] mL/min/{1.73_m2} Normal 60 - 999 [facility] Comment on above: Result Comment: ACCO RDING TO THE NATIONAL KIDNEY DISEASE EDUCATION PROGRAM(NKDE), A NORMAL eGFR IS A VALUE GREATER THAN OR EQUAL TO 60 ML/MIN/1.73 SQ METERS. CHRONIC KIDNEY DISEASE: <60mL/MIN/1.73 SQ METERS KIDNEY FAILURE: <15mL/MIN/1.73 SQ METERS THIS TEST SHOULD ONLY BE USED FOR PATIENTS 18 YEARS OF AGE AND OLDER. Performed By: #### 2 32381 #### [facility],[address] [place] [address]396 Globulin (S) [Mass/Vol] 4.0 g/dL High 1.5 - 3.8 [facility] Comment on above: Performed By: #### 2 13558 #### [facility],[address] [place] [address] 18129 Glucose [Mass/Vol] 127 mg/dL High 74 - 106 [facility] Comment on above: Performed By: #### 2 70568 #### [facility],[address] [place] [address] 30899 Potassium [Moles/Vol] 4.1 mmol/L Normal 3.5 - 5.1 [facility] Comment on above: Performed By: #### 2 63484 #### [facility],[address] [place] [address] 91603 Protein [Mass/Vol] 6.4 g/dL Normal 6.4 - 8.2 [facility] Comment on above: Performed By: #### 2 49159 #### [facility],[address] [place] [address] 02531 Sodium [Moles/Vol] 144 mmol/L Normal 136 - 145 [facility] Comment on above: Performed By: #### 2 37965 #### [facility],[address] [place], [place] [address] Urea nitrogen [Mass/Vol] 14 mg/dL Normal 7 - 18 [facility] Comment on above: Performed By: #### 2 16069 #### [facility],[address] [place] [address] ABDOMEN/PELVIS Won 2023 CT ABDOMEN/PELVIS [place] [address] Patient: JOHNATHAN GONZALEZ Phone#: : 1975 Age: 49 Gender: M Pt. Type: ER Account: [id number] Location: [facility] Ordering: SHAYLA OSEI Exam Date: 02/17/2024/4:33 Family Phys: Charge Code: 427431 Physician: [place] Order #: [id number] Dose#: [id number] PROCEDURE: CT ABDOMEN/PELVIS WITH CONTRAST COMPARISON: None. INDICATIONS: ABDOMINAL PAIN. TECHNIQUE: After obtaining the patient's consent, CT images were created with non-ionic intravenous contrast material. All CT scans at this facility use dose modulation, iterative reconstruction, and/or weight based dosing when appropriate to reduce radiation dose to as low as reasonably achievable. IV CONTRAST: Omnipaque 350,80ml TOTAL DOSE: 18.2 CTDIvol(mGy) FINDINGS: LIVER: Normal. No enlargement, atrophy, abnormal density, or significant focal lesion. BILIARY: Gallbladder is absent. Surgical clips in the gallbladder fossa. Mild intrahepatic ductal dilatation, likely reservoir effect following cholecystectomy. PANCREAS: Normal. No lesion, fluid collection, ductal dilatation, or atrophy. SPLEEN: Normal. No enlargement or focal lesion. Small splenule at the lower pole of the spleen KIDNEYS: There is a stone at the left ureteral vesicular junction measuring 0.4 x 0.4 cm. There is moderate left hydronephrosis and hydroureter. There is mild delayed left renal nephrogram. Right kidney demonstrates expected enhancement and excretion. No right hydronephrosis. ADRENALS: Normal. No mass or enlargement. AORTA/VASCULAR: No aortic aneurysm. RETROPERITONEUM: Normal. No mass or adenopathy. BOWEL/MESENTERY: No bowel obstruction or dilatation. Moderate stool burden. Appendix is thickened measuring 1.0 cm. No periappendiceal inflammation, series 4, image 29. ABDOMINAL WALL: Small fat containing umbilical hernia. URINARY BLADDER: Partially filled Continued Report - Page 2 of 2 Patient: JOHNATHAN GONZALEZ Phone#: : 1975 Age: 49 Gender: M Pt. Type: ER Account: [id number] Location: [facility] Ordering: SHAYLA OSEI Exam Date: 02/17/2024/4:33 Family Phys: Charge Code: 544301 Physician: [place] Order #: [id number] Dose#: [id number] PELVIC NODES: Normal. No adenopathy. PELVIC ORGANS: Normal. No visible mass. Pelvic organs appropriate for patient age. BONES: Heterotopic ossification at the posterior left acetabulum with pseudoarticulation with heterotopic ossification at the greater trochanter. There is diffuse bony demineralization. LUNG BASES: Atelectasis in the lower lobes. OTHER: Negative. CONCLUSION: 1. Obstructing stone at the left ureteral vesicular junction with mild left hydronephrosis and hydroureter. Mild delayed left renal nephrogram. 2. Thickened appendix measuring 1.0 cm. No periappendiceal stranding. This is equivocal for acute appendicitis. Recommend clinical correlation. Dictated by: Magda Estrada MD on 02/17/2024 at 11:48 Approved by: Magda Estrada MD on 02/17/2024 at 11:57 Normal [facility] LIPASEon 02-17-2024 Lipase [Catalytic activity/Vol] 33.0 U/L Normal 15.0 - 78.0 [facility] Comment on above: Result Comment: *PLE ASE NOTE THAT RANGES FOR LIPASE HAVE CHANGED OF 07/05/23 DUE TO AN ASSAY UPDATE BY THE ENROLLMENT ADVISOR.THE NEW ASSAY RANGE IS 6-250 U/L, WITH A REFERENCE RANGE OF 16-77 U/L. Performed By: #### 2 56473 #### [facility],[address] [place] [address] URINALYSISon 02-17-2024 Amorphous NONE Normal [facility] Comment on above: Performed By: #### 2 33681 #### [facility],[address] [place] [address] 04036 Bacteria TRACE Normal [facility] Comment on above: Performed By: #### 2 40017 #### [facility],[address] [place] [address] 92384 Bilirubin Ql (U) Negative Normal NORMAL: NEGATIVE [facility] Comment on above: Performed By: #### 2 03069 #### [facility],[address] [place] [address] 64018 Casts NONE Normal [facility] Comment on above: Performed By: #### 2 97195 #### [facility],[address] [place] [address] 10493 Clarity (U) clear Normal NORMAL: CLEAR [facility] Comment on above: Performed By: #### 2 22694 #### [facility],[address] [place] [address] 56947 Color (U) yellow Normal NORMAL: YELLOW [facility] Comment on above: Performed By: #### 2 23354 #### [facility],[address] [place] [address] 57393 Crystals LM Nom (Urine sed) NONE Normal [facility] Comment on above: Performed By: #### 2 16142 #### [facility],[address] [place] [address] 54752 Epi Cells OCC Normal [facility] Comment on above: Performed By: #### 2 23390 #### [facility],[address] [place] [address] 73901 Glucose Ql (U) NORM Normal NORMAL: NORMAL [facility] Comment on above: Performed By: #### 2 58720 #### [facility],[address] [place] [address] 83837 Hemoglobin Ql (U) 10 Abnormal NORMAL: NEGATIVE [facility] Comment on above: Performed By: #### 2 65843 #### [facility],[address] [place] [address] 64302 Ketone Negative Normal NORMAL: NEGATIVE [facility] Comment on above: Performed By: #### 2 75910 #### [facility],[address] [place] [address] 94434 Leukocytes Negative Normal NORMAL: NEGATIVE [facility] Comment on above: Performed By: #### 2 23847 #### [facility],[address] [place], [place] [address] Mucous NONE Normal [facility] Comment on above: Performed By: #### 2 37859 #### [facility],[address] [place], [place] [address] Nitrite Ql (U) Negative Normal NORMAL: NEGATIVE [facility] Comment on above: Performed By: #### 2 35790 #### [facility],[address] [place], [place] [address] pH (U) 6 [pH] Normal NORMAL: 5.0-8.0 [facility] Comment on above: Performed By: #### 2 85748 #### [facility],[address] [place], [place] [address] Protein Ql (U) Negative Normal NORMAL: NEGATIVE [facility] Comment on above: Performed By: #### 2 11563 #### [facility],[address] [place], [place] [address] Rbc 0-5 Normal 0-3/hpf [facility] Comment on above: Performed By: #### 2 17015 #### [facility],[address] [place], [place] [address] Sp [place] 1.020 Normal NORMAL: 1.010-1.03 0 [facility] Comment on above: Performed By: #### 2 47983 #### [facility],[address] [place], [place] [address] Specimen Type Clean catch Normal [facility] Comment on above: Performed By: #### 2 59170 #### [facility],[address] [place], [place] [address] Urinalysis dipstick W Reflex Microscopic panel (U) SEE BELOW Normal [facility] Comment on above: Result Comment: MICR OSCOPIC Performed By: #### 2 94265 #### [facility],[address] [place] [address] Urobilinog NORM Normal NORMAL: NORMAL [facility] Comment on above: Performed By: #### 2 89104 #### [facility],[address] [place] [address] Wbc NONE Normal 0-5/hpf [facility] Comment on above: Performed By: #### 2 01600 #### [facility],[address] [place] [address] Yeast NONE Normal [facility] Comment on above: Performed By: #### 2 55549 #### [facility],[address] [place] [address] [place] SCROTALon 02-17-2024 SCROTAL [place] [address] Patient: JOHNATHAN GONZALEZ Phone#: : 1975 Age: 49 Gender: M Pt. Type: ER Account: [id number] Location: [facility] Ordering: SHAYLA OSEI Exam Date: 02/17/2024/5:56 Family Phys: Charge Code: 837305 Physician: [place] Order #: [id number] Dose#: PROCEDURE: SCROTAL ULTRASOUND COMPARISON: None. INDICATIONS: Left sided pain TECHNIQUE: The scrotum was evaluated with farley scale and color duplex Doppler sonography. FINDINGS: TESTES: Normal. No visible mass. Normal echotexture, size, and flow. Right testicle measures 3.5 x 2.8 x 2.2 cm. Left testicle measures 3.6 x 2.1 x 2.4 cm. EPIDIDYMIS: Normal. No visible mass or cyst. Right epididymis measures 1.3 x 0.7 x 1.6 cm. Left epididymis measures 0.8 x 0.6 x 1.4 cm. OTHER: There is a small left hydrocele. Small calcification is seen within the hydrocele, usually of no clinical significance. CONCLUSION: 1. Small left hydrocele Dictated by: Magda Estrada MD on 02/17/2024 at 9:09 Approved by: Magda Estrada MD on 02/17/2024 at 9:21 Normal [facility] Basic metabolic 1998 panelOr dered By: Sonja Dorado on 10-02-2023 Anion gap [Moles/Vol] 13 mmol/L 10 - 2 0 mmol/L [facility] Chloride [Moles/Vol] 109 mmol/L High 98 - 10 8 mmol/L [facility] Creatinine [Mass/Vol] 0.98 mg/dL 0.50 - 1.30 mg/dL [facility] GFR/1.73 sq M.predicted CKD-EPI (S/P/Bld) [Vol rate/Area] 94 - PINF [facility] Comment on above: Estimated GFR was ca lculated using the 2020 CKD-EPI creatinine equation. Glucose [Mass/Vol] 100 mg/dL High 65 - 99 mg/dL [facility] HCO3 [Moles/Vol] 23 mmol/L 21 - 32 mmol/L [facility] Interpretation and review of laboratory results Abnormal [facility] Potassium [Moles/Vol] 3.6 mmol/L 3.5 - 5.1 mmol/L [facility] Sodium [Moles/Vol] 141 mmol/L 135 - 145 mmol/L [facility] Urea nitrogen [Mass/Vol] 10 mg/dL 8 - 25 mg/dL [facility] Urea nitrogen/Creatinine [Mass ratio] 10.2 mg/mg 10.0 - 20.0 [facility] has implemented the eGFR calculation approach that does not have a coefficient for race that conforms to the NKF-ASN Task Force Recommendations. [facility] CBC panel Auto (Bld)on 10-01 Erythrocyte distribution width (RBC) [Entitic vol] 13.3 % 11.6 - 14.8 % [facility] Hematocrit (Bld) [Volume fraction] 32.8 % Low 41.0 - 53.0 % [facility] Hemoglobin (Bld) [Mass/Vol] 10.8 g/dL Low 13.5 - 17.5 g/dL [facility] Interpretation and review of laboratory results Abnormal [facility] MCH (RBC) [Entitic mass] 29.2 pg 26.0 - 34.0 pg [facility] MCHC (RBC) [Mass/Vol] 32.9 g/dL 31.0 - 37.0 g/dL [facility] MCV (RBC) [Entitic vol] 88.6 fL 80.0 - 100.0 fL [facility] Nucleated RBC (Bld) [#/Vol] 0.00 10*3/uL [facility] Nucleated RBC/100 WBC (Bld) [Ratio] 0.0 % [facility] Platelet mean volume (Bld) [Entitic vol] 9.2 fL Low 9.4 - 12.4 fL [facility] Platelets (Bld) [#/Vol] 200 10*3/uL [facility] RBC (Bld) [#/Vol] 3.70 10*6/uL Low [facility] eah WBC (Bld) [#/Vol] 9.57 10*3/uL [facility] eah [facility] Glucose (Bld) [Mass/Vol]on 0 10-02-2023 Glucose [Mass/Vol] 105 mg/dL High 65 - 99 mg/dL [facility] Interpretation and review of laboratory results Abnormal [facility] Basic metabolic 1998 panelon 10-01-2023 Anion gap [Moles/Vol] 13 mmol/L 10 - 2 0 mmol/L [facility] Chloride [Moles/Vol] 110 mmol/L High 98 - 10 8 mmol/L [facility] Creatinine [Mass/Vol] 0.92 mg/dL 0.50 - 1.30 mg/dL [facility] GFR/1.73 sq M.predicted CKD-EPI (S/P/Bld) [Vol rate/Area] 101 - PINF [facility] Comment on above: Estimated GFR was ca lculated using the 2020 CKD-EPI creatinine equation. Glucose [Mass/Vol] 100 mg/dL High 65 - 99 mg/dL [facility] HCO3 [Moles/Vol] 22 mmol/L 21 - 32 mmol/L [facility] Interpretation and review of laboratory results Abnormal [facility] Potassium [Moles/Vol] 3.6 mmol/L 3.5 - 5.1 mmol/L [facility] Sodium [Moles/Vol] 141 mmol/L 135 - 145 mmol/L [facility] Urea nitrogen [Mass/Vol] 10 mg/dL 8 - 25 mg/dL [facility] Urea nitrogen/Creatinine [Mass ratio] 10.9 mg/mg 10.0 - 20.0 [facility] has implemented the eGFR calculation approach that does not have a coefficient for race that conforms to the NKF-ASN Task Force Recommendations. [facility] CBC panel Auto (Bld)on 09-30 Erythrocyte distribution width (RBC) [Entitic vol] 13.1 % 11.6 - 14.8 % [facility] Hematocrit (Bld) [Volume fraction] 32.6 % Low 41.0 - 53.0 % [facility] Hemoglobin (Bld) [Mass/Vol] 10.7 g/dL Low 13.5 - 17.5 g/dL [facility] Interpretation and review of laboratory results Abnormal [facility] MCH (RBC) [Entitic mass] 29.6 pg 26.0 - 34.0 pg [facility] MCHC (RBC) [Mass/Vol] 32.8 g/dL 31.0 - 37.0 g/dL [facility] MCV (RBC) [Entitic vol] 90.1 fL 80.0 - 100.0 fL [facility] Nucleated RBC (Bld) [#/Vol] 0.00 10*3/uL [facility] Nucleated RBC/100 WBC (Bld) [Ratio] 0.0 % [facility] Platelet mean volume (Bld) [Entitic vol] 9.4 fL 9.4 - 12.4 fL [facility] Platelets (Bld) [#/Vol] 185 10*3/uL [facility] RBC (Bld) [#/Vol] 3.62 10*6/uL Low [facility]alth WBC (Bld) [#/Vol] 10.06 10*3/uL [facility] Glucose (Bld) [Mass/Vol]on 0 10-01-2023 Glucose [Mass/Vol] 109 mg/dL High 65 - 99 mg/dL [facility] Interpretation and review of laboratory results Abnormal [facility] Glucose [Mass/Vol] 110 mg/dL High 65 - 99 mg/dL [facility] Interpretation and review of laboratory results Abnormal [facility] Glucose [Mass/Vol] 102 mg/dL High 65 - 99 mg/dL [facility] Interpretation and review of laboratory results Abnormal [facility] Glucose [Mass/Vol] 102 mg/dL High 65 - 99 mg/dL [facility] Interpretation and review of laboratory results Abnormal [facility] Glucose [Mass/Vol] 109 mg/dL High 65 - 99 mg/dL [facility] Interpretation and review of laboratory results Abnormal [facility] Basic metabolic 1998 panelOr dered By: Omar Cox on 09-30-2023 Anion gap [Moles/Vol] 12 mmol/L 10 - 2 0 mmol/L [facility] Chloride [Moles/Vol] 109 mmol/L High 98 - 10 8 mmol/L [facility] Creatinine [Mass/Vol] 0.94 mg/dL 0.50 - 1.30 mg/dL [facility] GFR/1.73 sq M.predicted CKD-EPI (S/P/Bld) [Vol rate/Area] 99 - PINF [facility] Comment on above: Estimated GFR was ca lculated using the 2020 CKD-EPI creatinine equation. Glucose [Mass/Vol] 98 mg/dL 65 - 99 mg/dL [facility] HCO3 [Moles/Vol] 22 mmol/L 21 - 32 mmol/L [facility] Interpretation and review of laboratory results Abnormal [facility] Potassium [Moles/Vol] 3.9 mmol/L 3.5 - 5.1 mmol/L [facility] Comment on above: Slightly Hemolyzed Sodium [Moles/Vol] 139 mmol/L 135 - 145 mmol/L [facility] Urea nitrogen [Mass/Vol] 6 mg/dL Low 8 - 25 mg/dL [facility] Urea nitrogen/Creatinine [Mass ratio] 6.4 mg/mg Low 10.0 - 20.0 [facility] has implemented the eGFR calculation approach that does not have a coefficient for race that conforms to the NKF-ASN Task Force Recommendations. [facility] CBC panel Auto (Bld)on 09-29 Erythrocyte distribution width (RBC) [Entitic vol] 13.1 % 11.6 - 14.8 % [facility] Hematocrit (Bld) [Volume fraction] 31.6 % Low 41.0 - 53.0 % [facility] Hemoglobin (Bld) [Mass/Vol] 10.5 g/dL Low 13.5 - 17.5 g/dL [facility] Interpretation and review of laboratory results Abnormal [facility] MCH (RBC) [Entitic mass] 29.0 pg 26.0 - 34.0 pg [facility] MCHC (RBC) [Mass/Vol] 33.2 g/dL 31.0 - 37.0 g/dL [facility] MCV (RBC) [Entitic vol] 87.3 fL 80.0 - 100.0 fL [facility] Nucleated RBC (Bld) [#/Vol] 0.00 10*3/uL [facility] Nucleated RBC/100 WBC (Bld) [Ratio] 0.0 % [facility] Platelet mean volume (Bld) [Entitic vol] 9.4 fL 9.4 - 12.4 fL [facility] Platelets (Bld) [#/Vol] 190 10*3/uL [facility] RBC (Bld) [#/Vol] 3.62 10*6/uL Low [facility] eah WBC (Bld) [#/Vol] 10.04 10*3/uL [facility] Glucose (Bld) [Mass/Vol]on 0 09-30-2023 Glucose [Mass/Vol] 113 mg/dL High 65 - 99 mg/dL [facility] Interpretation and review of laboratory results Abnormal [facility] Glucose [Mass/Vol] 103 mg/dL High 65 - 99 mg/dL [facility] Interpretation and review of laboratory results Abnormal [facility] Glucose [Mass/Vol] 117 mg/dL High 65 - 99 mg/dL [facility] Interpretation and review of laboratory results Abnormal [facility] Glucose [Mass/Vol] 96 mg/dL 65 - 99 mg/dL [facility] Interpretation and review of laboratory results Normal [facility] Glucose [Mass/Vol] 103 mg/dL High 65 - 99 mg/dL [facility] Interpretation and review of laboratory results Abnormal [facility] Glucose [Mass/Vol] 98 mg/dL 65 - 99 mg/dL [facility] Interpretation and review of laboratory results Normal [facility] Basic metabolic 1998 panelOr dered By: Eliezer Nuñez on 09-29-2023 Anion gap [Moles/Vol] 11 mmol/L 10 - 2 0 mmol/L [facility] Chloride [Moles/Vol] 108 mmol/L 98 - 10 8 mmol/L [facility] Creatinine [Mass/Vol] 0.96 mg/dL 0.50 - 1.30 mg/dL [facility] GFR/1.73 sq M.predicted CKD-EPI (S/P/Bld) [Vol rate/Area] 96 - PINF [facility] Comment on above: Estimated GFR was ca lculated using the 2020 CKD-EPI creatinine equation. Glucose [Mass/Vol] 97 mg/dL 65 - 99 mg/dL [facility] HCO3 [Moles/Vol] 24 mmol/L 21 - 32 mmol/L [facility] Interpretation and review of laboratory results Abnormal [facility] Potassium [Moles/Vol] 3.4 mmol/L Low 3.5 - 5.1 mmol/L [facility] Comment on above: Slightly Hemolyzed Sodium [Moles/Vol] 140 mmol/L 135 - 145 mmol/L [facility] Urea nitrogen [Mass/Vol] 7 mg/dL Low 8 - 25 mg/dL [facility] Urea nitrogen/Creatinine [Mass ratio] 7.3 mg/mg Low 10.0 - 20.0 [facility] has implemented the eGFR calculation approach that does not have a coefficient for race that conforms to the NKF-ASN Task Force Recommendations. [facility] CBC panel Auto (Bld)on 09-28 Erythrocyte distribution width (RBC) [Entitic vol] 13.2 % 11.6 - 14.8 % [facility] Hematocrit (Bld) [Volume fraction] 31.9 % Low 41.0 - 53.0 % [facility] Hemoglobin (Bld) [Mass/Vol] 10.6 g/dL Low 13.5 - 17.5 g/dL [facility] Interpretation and review of laboratory results Abnormal [facility] MCH (RBC) [Entitic mass] 29.3 pg 26.0 - 34.0 pg [facility] MCHC (RBC) [Mass/Vol] 33.2 g/dL 31.0 - 37.0 g/dL [facility] MCV (RBC) [Entitic vol] 88.1 fL 80.0 - 100.0 fL [facility] Nucleated RBC (Bld) [#/Vol] 0.00 10*3/uL [facility] Nucleated RBC/100 WBC (Bld) [Ratio] 0.0 % [facility] Platelet mean volume (Bld) [Entitic vol] 9.4 fL 9.4 - 12.4 fL [facility] Platelets (Bld) [#/Vol] 175 10*3/uL [facility] RBC (Bld) [#/Vol] 3.62 10*6/uL Low [facility] ealt WBC (Bld) [#/Vol] 7.48 10*3/uL [facility] Calcium, IonizedOrdered By: Amberly Isaacs on 09-29-2023 Calcium.ionized [Mass/Vol] 5.0 mg/dL 4.5 - 5.3 mg/dL [facility] Calcium.ionized [Mass/Vol]Or dered By: Amberly Isaacs on 09-29-2023 Interpretation and review of laboratory results Normal [facility] Glucose (Bld) [Mass/Vol]on 0 09-29-2023 Glucose [Mass/Vol] 126 mg/dL High 65 - 99 mg/dL [facility] Interpretation and review of laboratory results Abnormal [facility] Glucose [Mass/Vol] 90 mg/dL 65 - 99 mg/dL [facility] Interpretation and review of laboratory results Normal [facility] Glucose [Mass/Vol] 108 mg/dL High 65 - 99 mg/dL [facility] Interpretation and review of laboratory results Abnormal [facility] Glucose [Mass/Vol] 123 mg/dL High 65 - 99 mg/dL [facility] Interpretation and review of laboratory results Abnormal [facility] Glucose [Mass/Vol] 99 mg/dL 65 - 99 mg/dL [facility] Interpretation and review of laboratory results Normal [facility] Magnesium Levelon 09-29-2023 Magnesium [Mass/Vol] 2.0 mg/dL 1.6 - 2 .4 mg/dL [facility] No Panel Informationon 09-28 Interpretation and review of laboratory results Normal [facility] Phosphoruson 09-29-2023 Phosphate [Mass/Vol] 3.5 mg/dL 2.7 - 4 .5 mg/dL [facility] Basic metabolic 1998 panelon 09-28-2023 Anion gap [Moles/Vol] 14 mmol/L 10 - 2 0 mmol/L [facility] Chloride [Moles/Vol] 109 mmol/L High 98 - 10 8 mmol/L [facility] Creatinine [Mass/Vol] 1.14 mg/dL 0.50 - 1.30 mg/dL [facility] GFR/1.73 sq M.predicted CKD-EPI (S/P/Bld) [Vol rate/Area] 78 - PINF [facility] Comment on above: Estimated GFR was ca lculated using the 2020 CKD-EPI creatinine equation. Glucose [Mass/Vol] 104 mg/dL High 65 - 99 mg/dL [facility] HCO3 [Moles/Vol] 23 mmol/L 21 - 32 mmol/L [facility] Potassium [Moles/Vol] 3.7 mmol/L 3.5 - 5.1 mmol/L [facility] Sodium [Moles/Vol] 142 mmol/L 135 - 145 mmol/L [facility] Urea nitrogen [Mass/Vol] 10 mg/dL 8 - 25 mg/dL [facility] Urea nitrogen/Creatinine [Mass ratio] 8.8 mg/mg Low 10.0 - 20.0 [facility] has implemented the eGFR calculation approach that does not have a coefficient for race that conforms to the NKF-ASN Task Force Recommendations. [facility] CBC panel Auto (Bld)on 09-27 Erythrocyte distribution width (RBC) [Entitic vol] 13.2 % 11.6 - 14.8 % [facility] Hematocrit (Bld) [Volume fraction] 33.9 % Low 41.0 - 53.0 % [facility] Hemoglobin (Bld) [Mass/Vol] 11.3 g/dL Low 13.5 - 17.5 g/dL [facility] Interpretation and review of laboratory results Abnormal [facility] MCH (RBC) [Entitic mass] 29.2 pg 26.0 - 34.0 pg [facility] MCHC (RBC) [Mass/Vol] 33.3 g/dL 31.0 - 37.0 g/dL [facility] MCV (RBC) [Entitic vol] 87.6 fL 80.0 - 100.0 fL [facility] Nucleated RBC (Bld) [#/Vol] 0.00 10*3/uL [facility] Nucleated RBC/100 WBC (Bld) [Ratio] 0.0 % [facility] Platelet mean volume (Bld) [Entitic vol] 9.1 fL Low 9.4 - 12.4 fL [facility] Platelets (Bld) [#/Vol] 170 10*3/uL [facility] RBC (Bld) [#/Vol] 3.87 10*6/uL Low [facility] WBC (Bld) [#/Vol] 8.54 10*3/uL [facility] Calcium, Ionizedon Calcium.ionized [Mass/Vol] 4.8 mg/dL 4.5 - 5.3 mg/dL [facility] Calcium.ionized [Mass/Vol]on 09-28-2023 Interpretation and review of laboratory results Normal [facility] Glucose (Bld) [Mass/Vol]on 0 09-28-2023 Glucose [Mass/Vol] 136 mg/dL High 65 - 99 mg/dL [facility] Interpretation and review of laboratory results Abnormal [facility] Glucose [Mass/Vol] 109 mg/dL High 65 - 99 mg/dL [facility] Interpretation and review of laboratory results Abnormal [facility] Glucose [Mass/Vol] 110 mg/dL High 65 - 99 mg/dL [facility] Interpretation and review of laboratory results Abnormal [facility] Glucose [Mass/Vol] 152 mg/dL High 65 - 99 mg/dL [facility] Interpretation and review of laboratory results Abnormal [facility] Glucose [Mass/Vol] 104 mg/dL High 65 - 99 mg/dL [facility] Interpretation and review of laboratory results Abnormal [facility] Glucose [Mass/Vol] 101 mg/dL High 65 - 99 mg/dL [facility] Interpretation and review of laboratory results Abnormal [facility] Magnesium Levelon 09-28-2023 Magnesium [Mass/Vol] 1.9 mg/dL 1.6 - 2 .4 mg/dL [facility] Magnesium [Mass/Vol]on 09-27 Interpretation and review of laboratory results Normal [facility] No Panel Informationon 09-27 Interpretation and review of laboratory results Abnormal [facility] Phosphoruson 09-28-2023 Phosphate [Mass/Vol] 1.9 mg/dL Low 2.7 - 4 .5 mg/dL [facility] Vancomycin Level, Randomon 0 09-28-2023 Vancomycin [Mass/Vol] 18.0 mcg/mL [facility] Vancomycin [Mass/Vol]on 09-06 As of 04/2022 vancom ycin dosing for [facility] inpatients will be done by Bayesian dosing software rather than off traditional trough values. Please contact the site specific inpatient pharmacy before making dose changes off of trough values alone for admitted patients. No established reference range. [facility] Basic metabolic 1998 panelon 09-27-2023 Anion gap [Moles/Vol] 15 mmol/L 10 - 2 0 mmol/L [facility] Chloride [Moles/Vol] 107 mmol/L 98 - 10 8 mmol/L [facility] Creatinine [Mass/Vol] 1.02 mg/dL 0.50 - 1.30 mg/dL [facility] GFR/1.73 sq M.predicted CKD-EPI (S/P/Bld) [Vol rate/Area] 90 - PINF [facility] Comment on above: Estimated GFR was ca lculated using the 2020 CKD-EPI creatinine equation. Glucose [Mass/Vol] 130 mg/dL High 65 - 99 mg/dL [facility] HCO3 [Moles/Vol] 23 mmol/L 21 - 32 mmol/L [facility] Interpretation and review of laboratory results Abnormal [facility] Potassium [Moles/Vol] 4.2 mmol/L 3.5 - 5.1 mmol/L [facility] Sodium [Moles/Vol] 141 mmol/L 135 - 145 mmol/L [facility] Urea nitrogen [Mass/Vol] 9 mg/dL 8 - 25 mg/dL [facility] Urea nitrogen/Creatinine [Mass ratio] 8.8 mg/mg Low 10.0 - 20.0 [facility] has implemented the eGFR calculation approach that does not have a coefficient for race that conforms to the NKF-ASN Task Force Recommendations. [facility] CBC panel Auto (Bld)on 09-26 Erythrocyte distribution width (RBC) [Entitic vol] 12.7 % 11.6 - 14.8 % [facility] Hematocrit (Bld) [Volume fraction] 37.2 % Low 41.0 - 53.0 % [facility] Hemoglobin (Bld) [Mass/Vol] 12.1 g/dL Low 13.5 - 17.5 g/dL [facility] Interpretation and review of laboratory results Abnormal [facility] MCH (RBC) [Entitic mass] 28.7 pg 26.0 - 34.0 pg [facility] MCHC (RBC) [Mass/Vol] 32.5 g/dL 31.0 - 37.0 g/dL [facility] MCV (RBC) [Entitic vol] 88.4 fL 80.0 - 100.0 fL [facility] Nucleated RBC (Bld) [#/Vol] 0.00 10*3/uL [facility] Nucleated RBC/100 WBC (Bld) [Ratio] 0.0 % [facility] Platelet mean volume (Bld) [Entitic vol] 9.0 fL Low 9.4 - 12.4 fL [facility] Platelets (Bld) [#/Vol] 194 10*3/uL [facility] RBC (Bld) [#/Vol] 4.21 10*6/uL Low [facility] ealth WBC (Bld) [#/Vol] 10.85 10*3/uL [facility] Calcium, IonizedOrdered By: Christiano Colbert on 09-27-2023 Calcium.ionized [Mass/Vol] 4.9 mg/dL 4.5 - 5.3 mg/dL [facility] Calcium.ionized [Mass/Vol]Or dered By: Christiano Colbert on 09-27-2023 Interpretation and review of laboratory results Normal [facility] Glucose (Bld) [Mass/Vol]on 0 09-27-2023 Glucose [Mass/Vol] 104 mg/dL High 65 - 99 mg/dL [facility] Interpretation and review of laboratory results Abnormal [facility] Glucose [Mass/Vol] 107 mg/dL High 65 - 99 mg/dL [facility] Interpretation and review of laboratory results Abnormal [facility] Glucose [Mass/Vol] 92 mg/dL 65 - 99 mg/dL [facility] Interpretation and review of laboratory results Normal [facility] Glucose [Mass/Vol] 112 mg/dL High 65 - 99 mg/dL [facility] Interpretation and review of laboratory results Abnormal [facility] Glucose [Mass/Vol] 95 mg/dL 65 - 99 mg/dL [facility] Interpretation and review of laboratory results Normal [facility] Glucose [Mass/Vol] 112 mg/dL High 65 - 99 mg/dL [facility] Interpretation and review of laboratory results Abnormal [facility] Glucose [Mass/Vol] 137 mg/dL High 65 - 99 mg/dL [facility] Interpretation and review of laboratory results Abnormal [facility] HbA1c (Bld) [Mass fraction]o n 09-27-2023 Average glucose Estimated from glycated hemoglobin (Bld) [Mass/Vol] 100 mg/dL 74 - 114 mg/dL [facility] Interpretation and review of laboratory results Normal [facility] Normal: 4.2% - 5.6% Increased risk for diabetes: 5.7% - 6.4% Diabetes: >= 6.5% Pediatrics: No established reference range Estimated average glucose: 74-114 mg/dL [facility] Hemoglobin A1con 09-27-2023 HbA1c (Bld) [Mass fraction] 5.1 % 4.2 - 5.6 % [facility] Magnesium Levelon 09-27-2023 Magnesium [Mass/Vol] 2.2 mg/dL 1.6 - 2 .4 mg/dL [facility] No Panel Informationon 09-26 Interpretation and review of laboratory results Normal [facility] Phosphoruson 09-27-2023 Phosphate [Mass/Vol] 3.3 mg/dL 2.7 - 4 .5 mg/dL [facility] Blood type and Indirect anti body screen panel (Bld)on 09-26-2023 ABO and Rh group Nom (Bld) Blood group A Rh(D) positive [facility] Blood group antibody screen Ql Negative [facility] Specimen Expires 09/29/2023 23:[address] [facility] [address] HEAD OR BRAIN WITHOUT CON TRASTon 09-26-2023 CT HEAD OR BRAIN WITHOUT CONTRAST EXAMINATION: CT HEAD OR BRAIN WITHOUT CONTRAST HISTORY: ORDERING SYSTEM PROVIDED HISTORY: S/P right cranioplasty, TECHNOLOGIST PROVIDED HISTORY: Illness/Other Reason for Exam: S/P right cranioplasty Encounter Type: Initial Additional Signs and Symptoms: None ORDERING SYSTEM PROVIDED DIAGNOSIS CODES: M95.2 Skull defect COMPARISON: CT head without contrast 06/07/2023. TECHNIQUE: CT examination of the head without IV contrast. Dose reduction techniques were achieved by using automated exposure control and/or adjustment of mA and/or kV according to patient size and/or use of iterative reconstruction technique. FINDINGS: Paranasal sinuses clear. Mastoid air cells clear. Cutaneous jose luis are seen in the scalp on the right side of the head. There is a surgical drain beneath the scalp on the right. There is soft tissue swelling and soft tissue gas on the right side of the head. Cranioplasty has been performed. There is some fluid and gas beneath the cranioplasty flap overlying the dural repair. No significant mass effect on the brain. There is a large area of chronic infarction in the right MCA territory with ex vacuo enlargement of the right lateral ventricle which is a stable finding. No acute postoperative intracranial hemorrhage. No shift of midline or hydrocephalus. No subdural fluid collection. IMPRESSION: 1. Status post cranioplasty on the right. There is some expected postoperative fluid and gas bubbles beneath the cranioplasty flap. No significant mass effect on the brain. 2. 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 3. No postoperative intracranial hemorrhage. No mass effect, shift of midline or hydrocephalus. [facility]/lab Workstation ID: [id number] Dictated by: DOMINGO MARTINEZ on SatSep 26, 2023 3:33:10 PM EDT Transcribed by: HALIMA MARTIN on SatSep 26, 2023 3:36:01 PM EDT Finalized by: DOMINGO MARTINEZ on Kristal Sep 26, 2023 4:18:50 PM EDT Normal [facility] Comment on above: Order Comment: Injur y/Trauma or Illness?:Illness/Other How long have you had these symptoms (acute/chronic)?:Acute Reason for exam?:s/p right cranioplasty Type of Exam?:Initial Additional signs and symptoms?:None CT Head WO contraston 2023 1. Status post cranioplasty on the right. There is some expected postoperative fluid and gas bubbles beneath the cranioplasty flap. No significant mass effect on the brain. 2. 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 3. No postoperative intracranial hemorrhage. No mass effect, shift of midline or hydrocephalus. DMG/lab Workstation ID: [id number] [employer] EXAMINATION: CT HEAD OR BRAIN WITHOUT CONTRAST HISTORY: ORDERING SYSTEM PROVIDED HISTORY: S/P right cranioplasty, TECHNOLOGIST PROVIDED HISTORY: Illness/Other Reason for Exam: S/P right cranioplasty Encounter Type: Initial Additional Signs and Symptoms: None ORDERING SYSTEM PROVIDED DIAGNOSIS CODES: M95.2 Skull defect COMPARISON: CT head without contrast 06/07/2023. TECHNIQUE: CT examination of the head without IV contrast. Dose reduction techniques were achieved by using automated exposure control and/or adjustment of mA and/or kV according to patient size and/or use of iterative reconstruction technique. FINDINGS: Paranasal sinuses clear. Mastoid air cells clear. Cutaneous jose luis are seen in the scalp on the right side of the head. There is a surgical drain beneath the scalp on the right. There is soft tissue swelling and soft tissue gas on the right side of the head. Cranioplasty has been performed. There is some fluid and gas beneath the cranioplasty flap overlying the dural repair. No significant mass effect on the brain. There is a large area of chronic infarction in the right MCA territory with ex vacuo enlargement of the right lateral ventricle which is a stable finding. No acute postoperative intracranial hemorrhage. No shift of midline or hydrocephalus. No subdural fluid collection. [employer] Domingo Martinez MD - 09/26/2023 EXAMINATION: CT HEAD OR BRAIN WITHOUT CONTRAST HISTORY: ORDERING SYSTEM PROVIDED HISTORY: S/P right cranioplasty, TECHNOLOGIST PROVIDED HISTORY: Illness/Other Reason for Exam: S/P right cranioplasty Encounter Type: Initial Additional Signs and Symptoms: None ORDERING SYSTEM PROVIDED DIAGNOSIS CODES: M95.2 Skull defect COMPARISON: CT head without contrast 06/07/2023. TECHNIQUE: CT examination of the head without IV contrast. Dose reduction techniques were achieved by using automated exposure control and/or adjustment of mA and/or kV according to patient size and/or use of iterative reconstruction technique. FINDINGS: Paranasal sinuses clear. Mastoid air cells clear. Cutaneous jose luis are seen in the scalp on the right side of the head. There is a surgical drain beneath the scalp on the right. There is soft tissue swelling and soft tissue gas on the right side of the head. Cranioplasty has been performed. There is some fluid and gas beneath the cranioplasty flap overlying the dural repair. No significant mass effect on the brain. There is a large area of chronic infarction in the right MCA territory with ex vacuo enlargement of the right lateral ventricle which is a stable finding. No acute postoperative intracranial hemorrhage. No shift of midline or hydrocephalus. No subdural fluid collection. IMPRESSION: 1. Status post cranioplasty on the right. There is some expected postoperative fluid and gas bubbles beneath the cranioplasty flap. No significant mass effect on the brain. 2. 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 3. No postoperative intracranial hemorrhage. No mass effect, shift of midline or hydrocephalus. [facility]/lab Workstation ID: [id number] [facility] Radiology Study observation (narrative) [facility] CT Head WO contrastOrdered B y: Domingo Martinez on 09-26-2023 [facility] Work Phone: Glucose (Bld) [Mass/Vol]on 0 09-26-2023 Glucose [Mass/Vol] 126 mg/dL High 65 - 99 mg/dL [facility] Interpretation and review of laboratory results Abnormal [facility] Glucose [Mass/Vol] 136 mg/dL High 65 - 99 mg/dL [facility] Interpretation and review of laboratory results Abnormal [facility] Glucose [Mass/Vol] 95 mg/dL 65 - 99 mg/dL [facility] Interpretation and review of laboratory results Normal [facility] Absolute immature granulocyt e countOrdered By: RUFUS MELENDEZ on 06-28-2023 Immature granulocytes (Bld) [#/Vol] 0.01 10*3/uL 0.00-0.10 [facility] Absolute lymphocyte countOrd ered By: RUFUS MELENDEZ on 06-28-2023 Lymphocytes Auto (Unsp spec) [#/Vol] 2.30 10*3/uL 1.30-2.90 [facility] Basophils Auto (Bld) [#/Vol] Ordered By: RUFUS MELENDEZ on 06-28-2023 Basophils (Bld) [#/Vol] 0.03 10*3/uL 0.00-0.10 [facility] Blood absolute eosinophil co untOrdered By: RUFUS TRIOL on 06-28-2023 Eosinophils (Bld) [#/Vol] 0.20 10*3/uL 0.00-0.20 [facility] Blood basophils/100 leukocyt esOrdered By: RUFUS MELENDEZ on 06-28-2023 Basophils/100 WBC (Bld) 0.4 % 0.2-1.0 [facility] Blood hematocrit (volume fra ction)Ordered By: RUFUS MELENDEZ on 06-28-2023 Hematocrit (Bld) [Volume fraction] 36.8 % 36.7-50.6 [facility] Blood leukocytes count (numb er/volume)Ordered By: RUFUS MELENDEZ on 06-28-2023 WBC (Bld) [#/Vol] 6.7 10*3/uL 3.6-10.8 [facility] Determination of erythrocyte mean corpuscular volume (MCV)Ordered By: RUFUS MELENDEZ on 06-28-2023 MCV (RBC) [Entitic vol] 92.0 fL 80.0-94.0 [facility] Eosinophil count as percenta ge of total leukocytesOrdered By: RUFUS MELENDEZ on 06-28-2023 Eosinophils/100 WBC (Unsp spec) 2.5 % 0.9-2.9 [facility] Erythrocyte distribution wid th ratioOrdered By: RUFUS MELENDEZ on 06-28-2023 Erythrocyte distribution width (RBC) [Ratio] 12.4 % 11.5-14.5 [facility] Immature granulocytes (Bld) [#/Vol]Ordered By: RUFUS MELENDEZ on 06-28-2023 Immature granulocytes/100 WBC (Bld) 0.10 % 0.00-1.00 [facility] Laboratory - Hematology and Cell countsOrdered By: RUFUS TRIOL on 06-28-2023 Platelet mean volume (Bld) [Entitic vol] 9.3 fL 7.4-10.4 [facility] RBC (Bld) [#/Vol] 4.00 10*6/uL 4.13-5.69 [facility] Lymphocytes/100 WBC Auto (Bl d)Ordered By: RUFUS TRIOL on 06-28-2023 Lymphocytes/100 WBC (Bld) 34.4 % 17.0-45.5 [facility] MCH Auto (RBC) [Entitic mass ]Ordered By: RUFUS TRIOL on 06-28-2023 MCH (RBC) [Entitic mass] 30.3 pg 27.0-31.0 [facility] MCHC Auto (RBC) [Mass/Vol]Or dered By: RUFUS TRIOL on 06-28-2023 MCHC (RBC) [Mass/Vol] 32.9 g/dL 33.0-37.0 [facility] Monocytes Auto (Bld) [#/Vol] Ordered By: RUFUS TRIOL on 06-28-2023 Monocytes (Bld) [#/Vol] 0.60 10*3/uL 0.30-0.80 [facility] Monocytes/100 WBC Auto (Bld) Ordered By: RUFUS TRIOL on 06-28-2023 Monocytes/100 WBC (Bld) 8.2 % 5.5-11.7 [facility] Neutrophils Auto (Bld) [#/Vo l]Ordered By: RUFUS TRIOL on 06-28-2023 Neutrophils (Bld) [#/Vol] 3.62 10*3/uL 2.20-4.80 [facility] Neutrophils seg % bldOrdered By: RUFUS TRIOL on 06-28-2023 Segmented neutrophils/100 WBC (Bld) 54.4 % 43.0-65.0 [facility] Platelets Auto (Bld) [#/Vol] Ordered By: RUFUS MELENDEZ on 06-28-2023 Platelets (Bld) [#/Vol] 143 10*3/uL 148-402 [facility] Whole blood hemoglobin measu rement (mass/volume)Ordered By: RUFUS AL on 06-28-2023 Hemoglobin (Bld) [Mass/Vol] 12.1 g/dL 12.4-17.3 [facility] Absolute immature granulocyt e countOrdered By: RUFUS MELENDEZ on 06-26-2023 Immature granulocytes (Bld) [#/Vol] 0.01 10*3/uL 0.00-0.10 [facility] Absolute lymphocyte countOrd ered By: RUFUS MELENDEZ on 06-26-2023 Lymphocytes Auto (Unsp spec) [#/Vol] 2.00 10*3/uL 1.30-2.90 [facility] Basophils Auto (Bld) [#/Vol] Ordered By: RUFUS MELENDEZ on 06-26-2023 Basophils (Bld) [#/Vol] 0.02 10*3/uL 0.00-0.10 [facility] Blood absolute eosinophil co untOrdered By: RUFUS MELENDEZ on 06-26-2023 Eosinophils (Bld) [#/Vol] 0.10 10*3/uL 0.00-0.20 [facility] Blood basophils/100 leukocyt esOrdered By: RUFUS MELENDEZ on 06-26-2023 Basophils/100 WBC (Bld) 0.3 % 0.2-1.0 [facility] Blood hematocrit (volume fra ction)Ordered By: RUFUS MELENDEZ on 06-26-2023 Hematocrit (Bld) [Volume fraction] 36.5 % 36.7-50.6 [facility] Blood leukocytes count (numb er/volume)Ordered By: RUFUS MELENDEZ on 06-26-2023 WBC (Bld) [#/Vol] 6.1 10*3/uL 3.6-10.8 [facility] Calcium measurement (mass fr action)Ordered By: RUFUS MELENDEZ on 06-26-2023 Calcium (Unsp spec) [Mass fraction] 8.5 mg/dL 8.2-10.0 [facility] Determination of erythrocyte mean corpuscular volume (MCV)Ordered By: RUFUS MELENDEZ on 06-26-2023 MCV (RBC) [Entitic vol] 92.4 fL 80.0-94.0 [facility] Eosinophil count as percenta ge of total leukocytesOrdered By: RUFUS MELENDEZ on 06-26-2023 Eosinophils/100 WBC (Unsp spec) 1.8 % 0.9-2.9 [facility] Erythrocyte distribution wid th ratioOrdered By: RUFUS MELENDEZ on 06-26-2023 Erythrocyte distribution width (RBC) [Ratio] 12.4 % 11.5-14.5 [facility] Glomerular filtration rate ( GFR) estimation/1.73 sq m using serum, plasma, or whole bOrdered By: RUFUS MELENDEZ on 06-26-2023 GFR/1.73 sq M.predicted among blacks CKD-EPI (S/P/Bld) [Vol rate/Area] > [address] >[address] [facility] Comment on above: Chronic Kidney Disea se less than 60 mL/min/1.73 [id number] Failure less than 15 mL/min/1.73 [id number] estimated GFR by age:50-59 years 93 mL/min/1.73 m2 GFR/1.73 sq M.predicted among non-blacks CKD-EPI (S/P/Bld) [Vol rate/Area] [address] [facility] Immature granulocytes (Bld) [#/Vol]Ordered By: RUFUS MELENDEZ on 06-26-2023 Immature granulocytes/100 WBC (Bld) 0.20 % 0.00-1.00 [facility] - Hematology and Cell countsOrdered By: RUFUS MELENDEZ on 06-26-2023 Platelet mean volume (Bld) [Entitic vol] 9.0 fL 7.4-10.4 [facility] RBC (Bld) [#/Vol] 3.95 10*6/uL 4.13-5.69 [facility] Lymphocytes/100 WBC Auto (Bl d)Ordered By: RUFUS TRIOL on 06-26-2023 Lymphocytes/100 WBC (Bld) 32.8 % 17.0-45.5 [facility] MCH Auto (RBC) [Entitic mass ]Ordered By: RUFUS TRIOL on 06-26-2023 MCH (RBC) [Entitic mass] 30.1 pg 27.0-31.0 [facility] MCHC Auto (RBC) [Mass/Vol]Or dered By: RUFUS TRIOL on 06-26-2023 MCHC (RBC) [Mass/Vol] 32.6 g/dL 33.0-37.0 [facility] Monocytes Auto (Bld) [#/Vol] Ordered By: RUFUS TRIOL on 06-26-2023 Monocytes (Bld) [#/Vol] 0.50 10*3/uL 0.30-0.80 [facility] Monocytes/100 WBC Auto (Bld) Ordered By: RUFUS TRIOL on 06-26-2023 Monocytes/100 WBC (Bld) 7.8 % 5.5-11.7 [facility] Neutrophils Auto (Bld) [#/Vo l]Ordered By: RUFUS TRIOL on 06-26-2023 Neutrophils (Bld) [#/Vol] 3.46 10*3/uL 2.20-4.80 [facility] Neutrophils seg % bldOrdered By: RUFUS GARCIAL on 06-26-2023 Segmented neutrophils/100 WBC (Bld) 57.1 % 43.0-65.0 [facility] No Panel InformationOrdered By: RUFUS MELENDEZ on 06-26-2023 Miscellaneous Test Comment bmp,alb cbc [facility] Reason Tests Not Done bad results [facility] Specimen Comment (Mis) redraw [facility] Comment on above: . NOTICE TO NURSING OR UNIT PERSONNEL You may wish to request a repeat sample. Please place this copy on the front of the patient's chart or in place for physician review. Please notifiy physician at earliest convenience. Platelets Auto (Bld) [#/Vol] Ordered By: RUFUS MELENDEZ on 06-26-2023 Platelets (Bld) [#/Vol] 133 10*3/uL 148-402 [facility] Potassium (Bld) [Moles/Vol]O rdered By: RUFUS MELENDEZ on 06-26-2023 Potassium [Moles/Vol] 3.5 mmol/L 3.3-5.1 [facility] Serum or plasma albumin betty urement by bromocresol purple (BCP) dye binding method (mOrdered By: RUFUS MELENDEZ on 06-26-2023 Albumin BCP dye [Mass/Vol] 2.1 g/dL 3.4-5.0 [facility] Serum or plasma anion gapOrd ered By: RUFUS MELENDEZ on 06-26-2023 Anion gap [Moles/Vol] 8.5 mmol/L 8.0-16.0 [facility] Serum or plasma carbon dioxi de measurement (moles/volume)Ordered By: RUFUS MELENDEZ on 06-26-2023 CO2 [Moles/Vol] 31 mmol/L 21-34 [facility] Serum or plasma chloride jane surement (moles/volume)Ordered By: RUFUS MELENDEZ on 06-26-2023 Chloride [Moles/Vol] 109 mmol/L 94-110 [facility] Serum or plasma creatinine m easurement (mass/volume)Ordered By: RUFUS MELENDEZ on 06-26-2023 Creatinine [Mass/Vol] 1.29 mg/dL 0.50-1.17 [facility] Serum or plasma glucose betty urement (mass/volume)Ordered By: RUFUS MELENDEZ on 06-26-2023 Glucose [Mass/Vol] 105 mg/dL 65-100 [facility] Serum or plasma sodium measu rement (moles/volume)Ordered By: RUFUS MELENDEZ on 06-26-2023 Sodium [Moles/Vol] 145 mmol/L 132-145 [facility] Serum or plasma urea nitroge n measurement (mass/volume)Ordered By: RUFUS MELENDEZ on 06-26-2023 Urea nitrogen [Mass/Vol] 9.5 mg/dL 3.2-26.9 [facility] Serum or plasma urea nitroge n/creatinine mass ratioOrdered By: RUFUS MELENDEZ on 06-26-2023 Urea nitrogen/Creatinine [Mass ratio] 7 mg/mg 6-20 [facility] Specimen typeOrdered By: KATARZYNA MELENDEZ on 06-26-2023 Specimen type Nom (Spec) green/lav top [facility] Whole blood hemoglobin measu rement (mass/volume)Ordered By: RUFUS MELENDEZ on 06-26-2023 Hemoglobin (Bld) [Mass/Vol] 11.9 g/dL 12.4-17.3 [facility] ALT (SGPT) ser/plasOrdered B y: FUENTES SAMUELS on 06-25-2023 ALT [Catalytic activity/Vol] 117 U/L 13-66 [facility] Absolute immature granulocyt e countOrdered By: FUENTES SAMUELS on 06-25-2023 Immature granulocytes (Bld) [#/Vol] 0.04 10*3/uL 0.00-0.10 [facility] Absolute lymphocyte countOrd ered By: FUENTES SAMUELS on 06-25-2023 Lymphocytes Auto (Unsp spec) [#/Vol] 1.50 10*3/uL 1.30-2.90 [facility] Appearance urOrdered By: KATARZYNA MELENDEZ on 06-25-2023 Appearance (U) Clear Clear [facility] Basophils Auto (Bld) [#/Vol] Ordered By: FUENTES SAMUELS on 06-25-2023 Basophils (Bld) [#/Vol] 0.02 10*3/uL 0.00-0.10 [facility] Blood absolute eosinophil co untOrdered By: FUENTES SAMUELS on 06-25-2023 Eosinophils (Bld) [#/Vol] 0.10 10*3/uL 0.00-0.20 [facility] Blood basophils/100 leukocyt esOrdered By: FUENTES SAMUELS on 06-25-2023 Basophils/100 WBC (Bld) 0.1 % 0.2-1.0 [facility] Blood hematocrit (volume fra ction)Ordered By: FUENTES SAMUELS on 06-25-2023 Hematocrit (Bld) [Volume fraction] 42.1 % 36.7-50.6 [facility] Blood leukocytes count (numb er/volume)Ordered By: FUENTES SAMUELS on 06-25-2023 WBC (Bld) [#/Vol] 14.3 10*3/uL 3.6-10.8 [facility] Blood total protein measurem entOrdered By: FUENTES SAMUELS on 06-25-2023 Protein [Mass/Vol] 6.5 g/dL 6.1-8.2 [facility] Calcium measurement (mass fr action)Ordered By: FUENTES SAMUELS on 06-25-2023 Calcium (Unsp spec) [Mass fraction] 9.0 mg/dL 8.2-10.0 [facility] Collection method - Specimen Ordered By: FUENTES SAMUELS on 06-25-2023 Collection method Nom (Spec) Nasal swab [facility] Color urOrdered By: RUFUS MELENDEZ on 06-25-2023 Color (U) erwin Yellow [facility] Detection in respiratory spe cimen of antigen of either or both severe acute respiratoOrdered By: FUENTES SAMUELS on 06-25-2023 SARS-CoV+SARS-CoV-2 (COVID-19) Ag IA.rapid Ql (Resp) Negative Negative [facility] Comment on above: The Lisa 2 SARS Ant igen TRISH is a lateral flow immunofluorescent sandwichassay that is used with the Lisa 2 instrument intended for the qualitativedetection of the nucleocapsid protein antigen from SARS-CoV-2 innasopharyngeal (ETHOLOGIST) and nasal (NS) swab specimens directly or after theswabs have been added to viral transport media from individuals who aresuspected of COVID-19 by their healthcare provider. Testing is limited tolaboratories certified under the Clinical Laboratory Improvement Amendmentsof 1988 (CLIA), 42 U.S.C. 263a, that meet the requirements to performmoderate, high or waived complexity tests. This test is authorized for useat the Point of Care (POC), i.e., in patient care settings operating under aCLIA Certificate of Waiver, Certificate of Compliance, or Certificate ofAccreditation.The SARS Antigen TRISH does not differentiate between SARS-CoV and SARS-CoV-2.Results are for the identification of SARS-CoV-2 nucleocapsid proteinantigen. Antigen is generally detectable in upper respiratory specimensduring the acute phase of infection.Positive results indicate the presence of viral antigens, but clinicalcorrelation with patient history and other diagnostic information isnecessary to determine infection status. Positive results do not rule outbacterial infection or co-infection with other viruses. The agent detectedmay not be the definite cause of disease.Negative results should be treated as presumptive and confirmed with amolecular assay, if necessary for patient management. Negative results donot rule out COVID-19 and should not be used as the sole basis for treatmentor patient management decisions, including infection control decisions.Negative results should be considered in the context of a patient s recentexposures, history and the presence of clinical signs and symptomsconsistent with COVID-19. Determination of erythrocyte mean corpuscular volume (MCV)Ordered By: FUENTES SAMUELS on 06-25-2023 MCV (RBC) [Entitic vol] 89.8 fL 80.0-94.0 [facility] Eosinophil count as percenta ge of total leukocytesOrdered By: FUENTES SAMUELS on 06-25-2023 Eosinophils/100 WBC (Unsp spec) 0.6 % 0.9-2.9 [facility] Erythrocyte distribution wid th ratioOrdered By: FUENTES SAMUELS on 06-25-2023 Erythrocyte distribution width (RBC) [Ratio] 12.1 % 11.5-14.5 [facility] Glomerular filtration rate ( GFR) estimation/1.73 sq m using serum, plasma, or whole bOrdered By: FUENTES SAMUELS on 06-25-2023 GFR/1.73 sq M.predicted among blacks CKD-EPI (S/P/Bld) [Vol rate/Area] > 60 >60 [facility] Comment on above: Chronic Kidney Disea se less than 60 mL/min/1.73 [id number] Failure less than 15 mL/min/1.73 [id number] estimated GFR by age:50-59 years 93 mL/min/1.73 m2 GFR/1.73 sq M.predicted among non-blacks CKD-EPI (S/P/Bld) [Vol rate/Area] > [address] >60 [facility] Glucose Glucometer (BldC) [M ass/Vol]Ordered By: FUENTES SAMUELS on 06-25-2023 Glucose [Mass/Vol] 165 mg/dL 65-110 [facility] Immature granulocytes (Bld) [#/Vol]Ordered By: FUENTES SAMUELS on 06-25-2023 Immature granulocytes/100 WBC (Bld) 0.30 % 0.00-1.00 [facility] Influenza virus A antigen de tection in nasopharynxOrdered By: FUENTES SAMUELS on 06-25-2023 FLUAV Ag Ql (Nph) Negative (Negative) [facility] Influenza virus B antigen de tection in nasopharynxOrdered By: FUENTES SAMUELS on 06-25-2023 FLUBV Ag Ql (Nph) Negative (Negative) [facility] Interpretation of serum or p lasma cardiac troponin I measurement by high sensitivityOrdered By: FUENTES SAMUELS on 06-25-2023 Troponin I.cardiac High sensitivity method Ql [Interp] < 4 ng/L 0-76 [facility] Comment on above: Interpretation comme nt:High-sensitivity troponin I (hsTnI) assay can reliably detect low troponinconcentrations relative to conventional troponin assays. It is thepreferred marker of myocardial necrosis as recommended by the FourthUniversal Definition of Myocardial Infarction Guidelines.The diagnosis of acute myocardial infarction (AMI) is made based on a riseor fall of troponin with at least one measurement exceeding the laboratory'supper limit of normal (indicating myocardial injury), in the context ofreasonable suspicion for coronary ischemia (e.g. typical symptoms, changeson ECG, evidence for loss of myocardial infarction or demonstration ofobstructive coronary artery disease).Note: Although abnormal hsTnI values reflect injury to myocardial cells, anelevated hsTnI does not indicate the cause of injury (i.e. ischemia versusnon-ischemic disease).In some cases, myocardial injury is chronic and relatively stable such thathsTnI values remain elevated but do not change substantially over hours todays (examples include chronic kidney disease, heart failure or advancedpatient age).When determining whether there has been a significant rise or fall oftroponin on serial sampling, absolute change in troponin concentration hasgreater diagnostic accuracy for AMI then relative change criteria. A changeof >7 ng/L over a 2-hour interval or a change of >10 ng/L over a 3-hourinterval is suggested as a significant change. If the initial hsTnI isbelow or at the 99th percentile upper reference limit, a 50% change from thebaseline is considered significant. If the initial hsTnI is above the 99thpercentile upper reference limit, a 20% change from the baseline value isconsidered significant. Ketones Test strip Ql (U)Ord ered By: RUFUS MELENDEZ on 06-25-2023 Ketones Ql (U) Negative Negative [facility] - Chemistry and C hemistry - challengeOrdered By: RUFUS MELENDEZ on 06-25-2023 Bilirubin Ql (U) 1 Negative [facility] Glucose Ql (U) Normal Negative [facility] - Hematology and Cell countsOrdered By: FUENTES SAMUELS on 06-25-2023 Platelet mean volume (Bld) [Entitic vol] 9.5 fL 7.4-10.4 [facility] RBC (Bld) [#/Vol] 4.69 10*6/uL 4.13-5.69 [facility] Lymphocytes/100 WBC Auto (Bl d)Ordered By: FUENTES SAMUELS on 06-25-2023 Lymphocytes/100 WBC (Bld) 10.4 % 17.0-45.5 [facility] MCH Auto (RBC) [Entitic mass ]Ordered By: FUENTES SAMUELS on 06-25-2023 MCH (RBC) [Entitic mass] 30.1 pg 27.0-31.0 [facility] MCHC Auto (RBC) [Mass/Vol]Or dered By: FUENTES SAMUELS on 06-25-2023 MCHC (RBC) [Mass/Vol] 33.5 g/dL 33.0-37.0 [facility] Monocytes Auto (Bld) [#/Vol] Ordered By: FUENTES SAMUELS on 06-25-2023 Monocytes (Bld) [#/Vol] 0.60 10*3/uL 0.30-0.80 [facility] Monocytes/100 WBC Auto (Bld) Ordered By: FUENTES SAMUELS on 06-25-2023 Monocytes/100 WBC (Bld) 4.4 % 5.5-11.7 [facility] Neutrophils Auto (Bld) [#/Vo l]Ordered By: FUENTES SAMUELS on 06-25-2023 Neutrophils (Bld) [#/Vol] 12.00 10*3/uL 2.20-4.80 [facility] Neutrophils seg % bldOrdered By: FUENTES SAMUELS on 06-25-2023 Segmented neutrophils/100 WBC (Bld) 84.2 % 43.0-65.0 [facility] Nitrite Test strip Ql (U)Ord ered By: RUFUS MELENDEZ on 06-25-2023 Nitrite Ql (U) Negative Negative [facility] No Panel InformationOrdered By: RUFUS MELENDEZ on 06-25-2023 Urine Urobilinogen Normal mg/dL Normal-1.0 [facility] PTT PPPOrdered By: FUENTES CHRISTOPHER on 06-25-2023 aPTT Coag (PPP) [Time] 22.3 '' 19.5-32.1 [facility] Comment on above: New Reference Ranges effective 2018. Platelet poor plasma interna tional normalized ratio (INR)Ordered By: FUENTES SAMUELS on 06-25-2023 INR Coag (PPP) [Relative time] 1.07 {INR} [facility] Comment on above: 2.0 - 3.0 Group A2.5 - 3.5 Group BGroup A indications: Prophylaxis and treatment of venousthrombosis. Treatment of pulmonary embolism. Prevention ofsystemic embolism. Tissue heart valves. Acute myocardialinfarction. Valvular heart disease. Atrial fibrillation.Group B indications: Mechanical prosthetic valves. . Platelets Auto (Bld) [#/Vol] Ordered By: FUENTES SAMUELS on 06-25-2023 Platelets (Bld) [#/Vol] 163 10*3/uL 148-402 [facility] Potassium (Bld) [Moles/Vol]O rdered By: FUENTES SAMUELS on 06-25-2023 Potassium [Moles/Vol] 3.4 mmol/L 3.3-5.1 [facility] Protein ur QLOrdered By: KATARZYNA MELENDEZ on 06-25-2023 Protein Ql (U) Negative Negative [facility] Prothrombin time (PT) in bryan telet poor plasma by coagulation assayOrdered By: FUENTES SAMUELS on 06-25-2023 PT Coag (PPP) [Time] 10.8 '' 8.9-12.2 [facility] Comment on above: New Reference Ranges effective 2018. RBC Test strip (U) [#/Vol]Or dered By: RUFUS MELENDEZ on 06-25-2023 RBC (U) [#/Vol] Negative Negative [facility] Respiratory syncytial virus (RSV) antigen detectionOrdered By: FUENTES SAMUELS on 06-25-2023 RSV Ag Ql (Unsp spec) Negative (Negative) [facility] Comment on above: Infection due to Res piratory Syncytial Virus cannot be ruledout. The Antigen in the sample may be below the detection limitof the test. Kit life insurance agent suggest culture of negative samples.. Serum globulin measurement ( mass/volume)Ordered By: FUENTES SAMUELS on 06-25-2023 Globulin (S) [Mass/Vol] 4.0 g/dL 1.5-4.5 [facility] Serum or plasma albumin betty urement by bromocresol purple (BCP) dye binding method (mOrdered By: FUENTES SAMUELS on 06-25-2023 Albumin BCP dye [Mass/Vol] 2.5 g/dL 3.4-5.0 [facility] Serum or plasma albumin/glob ulin mass ratioOrdered By: FUENTES SAMUELS on 06-25-2023 Albumin/Globulin [Mass ratio] 0.6 {ratio} 1.1-2.5 [facility] Serum or plasma alkaline alexa sphatase measurement (enzymatic activity/volume)Ordered By: FUENTES SAMUELS 06-25-2023 ALP [Catalytic activity/Vol] 123 U/L 54-112 [facility] Serum or plasma anion gapOrd ered By: FUENTES SAMUELS on 06-25-2023 Anion gap [Moles/Vol] 9.4 mmol/L 8.0-16.0 [facility] Serum or plasma aspartate am inotransferase measurement with P-5'-P (enzymatic activitOrdered By: FUENTES SAMUELS 06-25-2023 AST With P-5'-P [Catalytic activity/Vol] 118 U/L 3-39 [facility] Serum or plasma bilirubin me asurement (mass/volume)Ordered By: FUENTES SAMUELS 06-25-2023 Bilirubin [Mass/Vol] 0.50 mg/dL 0.00-0.99 [facility] Serum or plasma carbon dioxi de measurement (moles/volume)Ordered By: FUENTES SAMUELS 06-25-2023 CO2 [Moles/Vol] 28 mmol/L 21-34 [facility] Serum or plasma chloride jane surement (moles/volume)Ordered By: FUENTES SAMUELS 06-25-2023 Chloride [Moles/Vol] 106 mmol/L 94-110 [facility] Serum or plasma creatinine m easurement (mass/volume)Ordered By: FUENTES SAMUELS 06-25-2023 Creatinine [Mass/Vol] 1.08 mg/dL 0.50-1.17 [facility] Serum or plasma glucose betty urement (mass/volume)Ordered By: FUENTES SAMUELS on 06-25-2023 Glucose [Mass/Vol] 160 mg/dL 65-100 [facility] Serum or plasma sodium measu rement (moles/volume)Ordered By: FUENTES SAMUELS on 06-25-2023 Sodium [Moles/Vol] 140 mmol/L 132-145 [facility] Serum or plasma urea nitroge n measurement (mass/volume)Ordered By: FUENTES SAMUELS on 06-25-2023 Urea nitrogen [Mass/Vol] 16.1 mg/dL 3.2-26.9 [facility] Serum or plasma urea nitroge n/creatinine mass ratioOrdered By: FUENTES SAMUELS on 06-25-2023 Urea nitrogen/Creatinine [Mass ratio] 15 mg/mg 6-20 [facility] Severe acute respiratory syn drome coronavirus 2 (SARS-CoV-2) RNA detection by probe aOrdered By: FUENTES SAMUELS on 06-25-2023 SARS-CoV-2 (COVID-19) RNA ALEKSEY+probe Ql (Unsp spec) Not detected Not Detected [facility] Comment on above: This nucleic acid am plification test wasdeveloped and its performancecharacteristics determined by [facility]. Nucleic acid amplificationtests include RT-PCR and TMA. This test hasnot been FDA cleared or approved. This testhas been authorized by FDA under anEmergency Use Authorization (EUA). This testis only authorized for the duration of timethe declaration that circumstances existjustifying the authorization of theemergency use of in vitro diagnostic testsfor detection of SARS-CoV-2 virus and/ordiagnosis of COVID-19 infection undersection 564(b)(1) of the Act, 21 U.S.C.360bbb-3(b) (1), unless the authorizationis terminated or revoked sooner.When diagnostic testing is negative, thepossibility of a false negative resultshould be considered in the context of apatient's recent exposures and the presenceof clinical signs and symptoms consistentwith COVID-19. An individual withoutsymptoms of COVID-19 and who is not [id number] virus would expect to have anegative (not detected) result in thisassay.Performed at: [facility] [id number] Director: Shelli Lao MD, Phone: [phone] Specific gravity Test strip (U) [Rel density]Ordered By: RUFUS MELENDEZ on 06-25-2023 Specific gravity (U) [Rel density] 1.020 1.015-1.[address] [facility] Urine leukocyte esterase det ection by dipstickOrdered By: RUFUS MELENDEZ on 06-25-2023 Leukocyte esterase Test strip Ql (U) Negative Negative [facility] Whole blood hemoglobin measu rement (mass/volume)Ordered By: FUENTES SAMUELS on 06-25-2023 Hemoglobin (Bld) [Mass/Vol] 14.1 g/dL 12.4-17.3 [facility] pH Test strip (U)Ordered By: RUFUS MELENDEZ on 06-25-2023 pH (U) 5 [pH] [facility] Absolute immature granulocyt e countOrdered By: KORTNEY YU on 06-24-2023 Immature granulocytes (Bld) [#/Vol] 0.01 10*3/uL 0.00-0.10 [facility] Absolute lymphocyte countOrd ered By: KORTNEY YU on 06-24-2023 Lymphocytes Auto (Unsp spec) [#/Vol] 2.50 10*3/uL 1.30-2.90 [facility] Basophils Auto (Bld) [#/Vol] Ordered By: KORTNEY YU on 06-24-2023 Basophils (Bld) [#/Vol] 0.04 10*3/uL 0.00-0.10 [facility] Blood absolute eosinophil co untOrdered By: KORTNEY YU on 06-24-2023 Eosinophils (Bld) [#/Vol] 0.10 10*3/uL 0.00-0.20 [facility] Blood basophils/100 leukocyt esOrdered By: KORTNEY YU on 06-24-2023 Basophils/100 WBC (Bld) 0.6 % 0.2-1.0 [facility] Blood hematocrit (volume fra ction)Ordered By: KORTNEY YU on 06-24-2023 Hematocrit (Bld) [Volume fraction] 38.9 % 36.7-50.6 [facility] Blood leukocytes count (numb er/volume)Ordered By: KORTNEY YU on 06-24-2023 WBC (Bld) [#/Vol] 6.8 10*3/uL 3.6-10.8 [facility] Calcium measurement (mass fr action)Ordered By: KORTNEY YU on 06-24-2023 Calcium (Unsp spec) [Mass fraction] 8.8 mg/dL 8.2-10.0 [facility] Determination of erythrocyte mean corpuscular volume (MCV)Ordered By: KORTNEY YU on 06-24-2023 MCV (RBC) [Entitic vol] 90.5 fL 80.0-94.0 [facility] Eosinophil count as percenta ge of total leukocytesOrdered By: KORTNEY YU on 06-24-2023 Eosinophils/100 WBC (Unsp spec) 1.8 % 0.9-2.9 [facility] Erythrocyte distribution wid th ratioOrdered By: KORTNEY YU on 06-24-2023 Erythrocyte distribution width (RBC) [Ratio] 12.4 % 11.5-14.5 [facility] Glomerular filtration rate ( GFR) estimation/1.73 sq m using serum, plasma, or whole bOrdered By: KORTNEY YU on 06-24-2023 GFR/1.73 sq M.predicted among blacks CKD-EPI (S/P/Bld) [Vol rate/Area] > [address] >60 [facility] Comment on above: Chronic Kidney Disea se less than 60 mL/min/1.73 [id number] Failure less than 15 mL/min/1.73 [id number] estimated GFR by age:50-59 years 93 mL/min/1.73 m2 GFR/1.73 sq M.predicted among non-blacks CKD-EPI (S/P/Bld) [Vol rate/Area] > [address] >60 [facility] Immature granulocytes (Bld) [#/Vol]Ordered By: KORTNEY YU on 06-24-2023 Immature granulocytes/100 WBC (Bld) 0.10 % 0.00-1.00 [facility] - Hematology and Cell countsOrdered By: KORTNEY YU on 06-24-2023 Platelet mean volume (Bld) [Entitic vol] 9.1 fL 7.4-10.4 [facility] RBC (Bld) [#/Vol] 4.30 10*6/uL 4.13-5.69 [facility] Lymphocytes/100 WBC Auto (Bl d)Ordered By: KORTNEY YU on 06-24-2023 Lymphocytes/100 WBC (Bld) 36.0 % 17.0-45.5 [facility] MCH Auto (RBC) [Entitic mass ]Ordered By: KORTNEY YU on 06-24-2023 MCH (RBC) [Entitic mass] 30.5 pg 27.0-31.0 [facility] MCHC Auto (RBC) [Mass/Vol]Or dered By: KORTNEY YU on 06-24-2023 MCHC (RBC) [Mass/Vol] 33.7 g/dL 33.0-37.0 [facility] Monocytes Auto (Bld) [#/Vol] Ordered By: KORTNEY YU on 06-24-2023 Monocytes (Bld) [#/Vol] 0.60 10*3/uL 0.30-0.80 [facility] Monocytes/100 WBC Auto (Bld) Ordered By: KORTNEY YU on 06-24-2023 Monocytes/100 WBC (Bld) 8.8 % 5.5-11.7 [facility] Neutrophils Auto (Bld) [#/Vo l]Ordered By: KORTNEY YU on 06-24-2023 Neutrophils (Bld) [#/Vol] 3.59 10*3/uL 2.20-4.80 [facility] Neutrophils seg % bldOrdered By: KORTNEY YU on 06-24-2023 Segmented neutrophils/100 WBC (Bld) 52.7 % 43.0-65.0 [facility] Platelets Auto (Bld) [#/Vol] Ordered By: KORTNEY YU on 06-24-2023 Platelets (Bld) [#/Vol] 155 10*3/uL 148-402 [facility] Potassium (Bld) [Moles/Vol]O rdered By: KORTNEY YU on 06-24-2023 Potassium [Moles/Vol] 3.4 mmol/L 3.3-5.1 [facility] Serum or plasma anion gapOrd ered By: KORTNEY YU on 06-24-2023 Anion gap [Moles/Vol] 12.4 mmol/L 8.0-16.0 [facility] Serum or plasma carbon dioxi de measurement (moles/volume)Ordered By: KORTNEY YU on 06-24-2023 CO2 [Moles/Vol] 28 mmol/L 21-34 [facility] Serum or plasma chloride jane surement (moles/volume)Ordered By: KORTNEY YU on 06-24-2023 Chloride [Moles/Vol] 106 mmol/L 94-110 [facility] Serum or plasma creatinine m easurement (mass/volume)Ordered By: KORTNEY YU on 06-24-2023 Creatinine [Mass/Vol] 1.11 mg/dL 0.50-1.17 [facility] Serum or plasma glucose betty urement (mass/volume)Ordered By: KORTNEY YU on 06-24-2023 Glucose [Mass/Vol] 107 mg/dL 65-100 [facility] Serum or plasma sodium measu rement (moles/volume)Ordered By: KORTNEY YU on 06-24-2023 Sodium [Moles/Vol] 143 mmol/L 132-145 [facility] Serum or plasma urea nitroge n measurement (mass/volume)Ordered By: KORTNEY YU on 06-24-2023 Urea nitrogen [Mass/Vol] 16.0 mg/dL 3.2-26.9 [facility] Serum or plasma urea nitroge n/creatinine mass ratioOrdered By: KORTNEY YU on 06-24-2023 Urea nitrogen/Creatinine [Mass ratio] 14 mg/mg 6-20 [facility] Whole blood hemoglobin measu rement (mass/volume)Ordered By: KORTNEY YU on 06-24-2023 Hemoglobin (Bld) [Mass/Vol] 13.1 g/dL 12.4-17.3 [facility] ALT (SGPT) ser/plasOrdered B y: KORTNEY YU on 06-22-2023 ALT [Catalytic activity/Vol] 83 U/L 13-66 [facility] Appearance urOrdered By: MINOR BEHZADSTELLA YU on 06-22-2023 Appearance (U) Clear Clear [facility] Bacteria detection in urine sediment by light microscopyOrdered By: KORTNEY YU on 06-22-2023 Bacteria LM Ql (Urine sed) 2+ /hpf 0 - 1+ [facility] Blood total protein measurem entOrdered By: KORTNEY YU on 06-22-2023 Protein [Mass/Vol] 5.9 g/dL 6.1-8.2 [facility] Color urOrdered By: SHAYLA YU on 06-22-2023 Color (U) brown Yellow [facility] Direct bilirubinOrdered By: KORTNEY YU on 06-22-2023 Bilirubin.direct [Mass/Vol] 0.12 mg/dL 0.00-0.42 [facility] Interpretation of serum or p lasma cardiac troponin I measurement by high sensitivityOrdered By: KORTNEY YU on 06-22-2023 Troponin I.cardiac High sensitivity method Ql [Interp] 4 ng/L 0-76 [facility] Comment on above: Interpretation comme nt:High-sensitivity troponin I (hsTnI) assay can reliably detect low troponinconcentrations relative to conventional troponin assays. It is thepreferred marker of myocardial necrosis as recommended by the FourthUniversal Definition of Myocardial Infarction Guidelines.The diagnosis of acute myocardial infarction (AMI) is made based on a riseor fall of troponin with at least one measurement exceeding the laboratory'supper limit of normal (indicating myocardial injury), in the context ofreasonable suspicion for coronary ischemia (e.g. typical symptoms, changeson ECG, evidence for loss of myocardial infarction or demonstration ofobstructive coronary artery disease).Note: Although abnormal hsTnI values reflect injury to myocardial cells, anelevated hsTnI does not indicate the cause of injury (i.e. ischemia versusnon-ischemic disease).In some cases, myocardial injury is chronic and relatively stable such thathsTnI values remain elevated but do not change substantially over hours todays (examples include chronic kidney disease, heart failure or advancedpatient age).When determining whether there has been a significant rise or fall oftroponin on serial sampling, absolute change in troponin concentration hasgreater diagnostic accuracy for AMI then relative change criteria. A changeof >7 ng/L over a 2-hour interval or a change of >10 ng/L over a 3-hourinterval is suggested as a significant change. If the initial hsTnI isbelow or at the 99th percentile upper reference limit, a 50% change from thebaseline is considered significant. If the initial hsTnI is above the 99thpercentile upper reference limit, a 20% change from the baseline value isconsidered significant. Ketones Test strip Ql (U)Ord ered By: KORTNEY YU on 06-22-2023 Ketones Ql (U) [address] [facility] - Chemistry and C hemistry - challengeOrdered By: KORTNEY YU on 06-22-2023 Bilirubin Ql (U) 1 Negative [facility] Glucose Ql (U) Normal Negative [facility] Urobilinogen (U) [Mass/Vol] 4 mg/dL Normal-1.0 [facility] - UrinalysisOrder ed By: KORTNEY YU on 06-22-2023 Epithelial cells LM Ql (Urine sed) 0-2 /lpf 0 - 6 [facility] Mucus LM Ql (Urine sed)Order ed By: KORTNEY YU on 06-22-2023 Mucus Ql (Urine sed) 4+ /lpf [facility] Nitrite Test strip Ql (U)Ord ered By: KORTNEY YU on 06-22-2023 Nitrite Ql (U) Negative Negative [facility] Protein ur QLOrdered By: MINOR JUANITA AIMEE on 06-22-2023 Protein Ql (U) [address] [facility] RBC LM Ql (Urine sed)Ordered By: KORTNEY YU on 06-22-2023 RBC Ql (U) 0-2 /hpf 0 - 2 [facility] RBC Test strip (U) [#/Vol]Or dered By: KORTNEY YU on 06-22-2023 RBC (U) [#/Vol] Negative Negative [facility] Serum globulin measurement ( mass/volume)Ordered By: KORTNEY YU on 06-22-2023 Globulin (S) [Mass/Vol] 3.6 g/dL 1.5-4.5 [facility] Serum or plasma albumin betty urement by bromocresol purple (BCP) dye binding method (mOrdered By: KORTNEY YU on 06-22-2023 Albumin BCP dye [Mass/Vol] 2.3 g/dL 3.4-5.0 [facility] Serum or plasma albumin/glob ulin mass ratioOrdered By: KORTNEY YU on 06-22-2023 Albumin/Globulin [Mass ratio] 0.6 {ratio} 1.1-2.5 [facility] Serum or plasma alkaline alexa sphatase measurement (enzymatic activity/volume)Ordered By: KORTNEY YU on 06-22-2023 ALP [Catalytic activity/Vol] 96 U/L 54-112 [facility] Serum or plasma aspartate am inotransferase measurement with P-5'-P (enzymatic activitOrdered By: KORTNEY YU on 06-22-2023 AST With P-5'-P [Catalytic activity/Vol] 54 U/L 3-39 [facility] Serum or plasma bilirubin me asurement (mass/volume)Ordered By: KORTNEY YU on 06-22-2023 Bilirubin [Mass/Vol] 0.41 mg/dL 0.00-0.99 [facility] Serum or plasma magnesium me asurement (mass/volume)Ordered By: KORTNEY YU on 06-22-2023 Magnesium [Mass/Vol] 2.1 mg/dL 1.3-2.3 [facility] Specific gravity Test strip (U) [Rel density]Ordered By: KORTNEY YU on 06-22-2023 Specific gravity (U) [Rel density] 1.020 1.015-1.[address] [facility] Troponin I measurement by [facility] sensitive enzyme immunoassayOrdered By: KORTNEY YU on 06-22-2023 Troponin I.cardiac High sensitivity method [Mass/Vol] 2 ng/L [facility] Troponin I.cardiac High sensitivity method [Mass/Vol] 50 % [facility] Urine bilirubin confirmation Ordered By: KORTNEY YU on 06-22-2023 Bilirubin Confirm Ql (U) Negative Negative [facility] Urine leukocyte esterase det ection by dipstickOrdered By: KORTNEY YU on 06-22-2023 Leukocyte esterase Test strip Ql (U) Trace Negative [facility] Urine leukocytes count (numb er/volume)Ordered By: KORTNEY YU on 06-22-2023 WBC (U) [#/Vol] 2-5 /hpf 0 - 6 [facility] pH Test strip (U)Ordered By: KORTNEY YU on 06-22-2023 pH (U) 6 [pH] [facility] No Panel InformationOrdered By: CARLYN CAMARGO on 06-21-2023 Differential Slide Review see below [facility] Comment on above: Scan differential pe rformed and agrees with automatedno abnormal cells seen. ALT (SGPT) ser/plasOrdered B y: [facility] CONNORS on 06-10-2023 ALT [Catalytic activity/Vol] 114 U/L [facility] Absolute immature granulocyt e countOrdered By: [facility] CONNORS on 06-10-2023 Immature granulocytes (Bld) [#/Vol] 0.01 10*3/uL 0.00-0.10 [facility] Absolute lymphocyte countOrd ered By: [facility] CONNORS on 06-10-2023 Lymphocytes Auto (Unsp spec) [#/Vol] 2.00 10*3/uL 1.30-2.90 [facility] Basophils Auto (Bld) [#/Vol] Ordered By: [facility] CONNORS on 06-10-2023 Basophils (Bld) [#/Vol] 0.02 10*3/uL 0.00-0.10 [facility] Blood absolute eosinophil co untOrdered By: [facility] CONNORS on 06-10-2023 Eosinophils (Bld) [#/Vol] 0.10 10*3/uL 0.00-0.20 [facility] Blood basophils/100 leukocyt esOrdered By: [facility] CONNORS on 06-10-2023 Basophils/100 WBC (Bld) 0.2 % 0.2-1.0 [facility] Blood hematocrit (volume fra ction)Ordered By: [facility] CONNORS on 06-10-2023 Hematocrit (Bld) [Volume fraction] 38.9 % 36.7-50.6 [facility] Blood leukocytes count (numb er/volume)Ordered By: [facility] CONNORS on 06-10-2023 WBC (Bld) [#/Vol] 8.3 10*3/uL 3.6-10.8 [facility] Blood total protein measurem entOrdered By: [facility]I CONNORS on 06-10-2023 Protein [Mass/Vol] 5.5 g/dL 6.1-8.2 [facility] Calcium measurement (mass fr action)Ordered By: [facility]I CONNORS on 06-10-2023 Calcium (Unsp spec) [Mass fraction] 8.4 mg/dL 8.2-10.0 [facility] Creatine kinase total serOrd ered By: [facility] CONNORS on 06-10-2023 CK [Catalytic activity/Vol] 37 U/L 39-308 [facility] Determination of erythrocyte mean corpuscular volume (MCV)Ordered By: [facility] CONNORS on 06-10-2023 MCV (RBC) [Entitic vol] 92.0 fL 80.0-94.0 [facility] Eosinophil count as percenta ge of total leukocytesOrdered By: [facility] CONNORS on 06-10-2023 Eosinophils/100 WBC (Unsp spec) 1.3 % 0.9-2.9 [facility] Erythrocyte distribution wid th ratioOrdered By: [facility]I DORY on 06-10-2023 Erythrocyte distribution width (RBC) [Ratio] 12.4 % 11.5-14.5 [facility] Glomerular filtration rate ( GFR) estimation/1.73 sq m using serum, plasma, or whole bOrdered By: [facility] CONNORS on 06-10-2023 GFR/1.73 sq M.predicted among blacks CKD-EPI (S/P/Bld) [Vol rate/Area] > 60 >60 [facility] Comment on above: Chronic Kidney Disea se less than 60 mL/min/1.73 [id number] Failure less than 15 mL/min/1.73 [id number] estimated GFR by age:50-59 years 93 mL/min/1.73 m2 GFR/1.73 sq M.predicted among non-blacks CKD-EPI (S/P/Bld) [Vol rate/Area] > [address] [facility] Immature granulocytes (Bld) [#/Vol]Ordered By: [facility]I CONNORS on 06-10-2023 Immature granulocytes/100 WBC (Bld) 0.10 % 0.00-1.00 [facility] Interpretation of serum or p lasma cardiac troponin I measurement by high sensitivityOrdered By: [facility] CONNORS on 06-10-2023 Troponin I.cardiac High sensitivity method Ql [Interp] 6 ng/L 0-76 [facility] Comment on above: Interpretation comme nt:High-sensitivity troponin I (hsTnI) assay can reliably detect low troponinconcentrations relative to conventional troponin assays. It is thepreferred marker of myocardial necrosis as recommended by the FourthUniversal Definition of Myocardial Infarction Guidelines.The diagnosis of acute myocardial infarction (AMI) is made based on a riseor fall of troponin with at least one measurement exceeding the laboratory'supper limit of normal (indicating myocardial injury), in the context ofreasonable suspicion for coronary ischemia (e.g. typical symptoms, changeson ECG, evidence for loss of myocardial infarction or demonstration ofobstructive coronary artery disease).Note: Although abnormal hsTnI values reflect injury to myocardial cells, anelevated hsTnI does not indicate the cause of injury (i.e. ischemia versusnon-ischemic disease).In some cases, myocardial injury is chronic and relatively stable such thathsTnI values remain elevated but do not change substantially over hours todays (examples include chronic kidney disease, heart failure or advancedpatient age).When determining whether there has been a significant rise or fall oftroponin on serial sampling, absolute change in troponin concentration hasgreater diagnostic accuracy for AMI then relative change criteria. A changeof >7 ng/L over a 2-hour interval or a change of >10 ng/L over a 3-hourinterval is suggested as a significant change. If the initial hsTnI isbelow or at the 99th percentile upper reference limit, a 50% change from thebaseline is considered significant. If the initial hsTnI is above the 99thpercentile upper reference limit, a 20% change from the baseline value isconsidered significant. Laboratory - Hematology and Cell countsOrdered By: [facility]I CONNORS on 06-10-2023 Platelet mean volume (Bld) [Entitic vol] 9.3 fL 7.4-10.4 [facility] RBC (Bld) [#/Vol] 4.23 10*6/uL 4.13-5.69 [facility] Lymphocytes/100 WBC Auto (Bl d)Ordered By: NHI CONNORS on 06-10-2023 Lymphocytes/100 WBC (Bld) 23.5 % 17.0-45.5 [facility] MCH Auto (RBC) [Entitic mass ]Ordered By: NHI CONNORS on 06-10-2023 MCH (RBC) [Entitic mass] 30.5 pg 27.0-31.0 [facility] MCHC Auto (RBC) [Mass/Vol]Or dered By: NHI CONNORS on 06-10-2023 MCHC (RBC) [Mass/Vol] 33.2 g/dL 33.0-37.0 [facility] Monocytes Auto (Bld) [#/Vol] Ordered By: NHI CONNORS on 06-10-2023 Monocytes (Bld) [#/Vol] 0.60 10*3/uL 0.30-0.80 [facility] Monocytes/100 WBC Auto (Bld) Ordered By: NHI CONNORS on 06-10-2023 Monocytes/100 WBC (Bld) 7.7 % 5.5-11.7 [facility] Natriuretic peptide B [Mass/ Vol]Ordered By: NHI CONNORS on 06-10-2023 Natriuretic peptide B (Bld) [Mass/Vol] 91 pg/mL 0-125 [facility] Comment on above: NOTE-Dietary supplem ents containing high biotin levels may cause significantinterference with affected lab tests, including cardiovascular diagnostictests and hormone tests that use biotin technology. Incorrect test resultsmay be generated if there is biotin in the patients specimen. Neutrophils Auto (Bld) [#/Vo l]Ordered By: NHI CONNORS on 06-10-2023 Neutrophils (Bld) [#/Vol] 5.57 10*3/uL 2.20-4.80 [facility] Neutrophils seg % bldOrdered By: NHI CONNORS on 06-10-2023 Segmented neutrophils/100 WBC (Bld) 67.2 % 43.0-65.0 [facility] Platelets Auto (Bld) [#/Vol] Ordered By: NHI CONNORS on 06-10-2023 Platelets (Bld) [#/Vol] 132 10*3/uL 148-402 [facility] Potassium (Bld) [Moles/Vol]O rdered By: NHI CONNORS on 06-10-2023 Potassium [Moles/Vol] 3.8 mmol/L 3.3-5.1 [facility] Serum globulin measurement ( mass/volume)Ordered By: NHI CONNORS on 06-10-2023 Globulin (S) [Mass/Vol] 3.3 g/dL 1.5-4.5 [facility] Serum or plasma albumin betty urement by bromocresol purple (BCP) dye binding method (mOrdered By: NHI CONNORS on 06-10-2023 Albumin BCP dye [Mass/Vol] 2.2 g/dL 3.4-5.0 [facility] Serum or plasma albumin/glob ulin mass ratioOrdered By: NHI CONNORS on 06-10-2023 Albumin/Globulin [Mass ratio] 0.7 {ratio} 1.1-2.5 [facility] Serum or plasma alkaline alexa sphatase measurement (enzymatic activity/volume)Ordered By: NHI CONNORS on 06-10-2023 ALP [Catalytic activity/Vol] 107 U/L 54-112 [facility] Serum or plasma anion gapOrd ered By: NHI CONNORS on 06-10-2023 Anion gap [Moles/Vol] 10.8 mmol/L 8.0-16.0 [facility] Serum or plasma aspartate am inotransferase measurement with P-5'-P (enzymatic activitOrdered By: NHI CONNORS on 06-10-2023 AST With P-5'-P [Catalytic activity/Vol] 135 U/L 3-39 [facility] Serum or plasma bilirubin me asurement (mass/volume)Ordered By: [facility]I OCNNORS on 06-10-2023 Bilirubin [Mass/Vol] 0.36 mg/dL 0.00-0.99 [facility] Serum or plasma carbon dioxi de measurement (moles/volume)Ordered By: NHI CONNORS on 06-10-2023 CO2 [Moles/Vol] 28 mmol/L 21-34 [facility] Serum or plasma chloride jane surement (moles/volume)Ordered By: NHI CONNORS on 06-10-2023 Chloride [Moles/Vol] 109 mmol/L 94-110 [facility] Serum or plasma creatinine m easurement (mass/volume)Ordered By: NHI CONNORS on 06-10-2023 Creatinine [Mass/Vol] 1.01 mg/dL 0.50-1.17 [facility] Serum or plasma glucose betty urement (mass/volume)Ordered By: NHI CONNORS on 06-10-2023 Glucose [Mass/Vol] 113 mg/dL 65-100 [facility] Serum or plasma sodium measu rement (moles/volume)Ordered By: NHI CONNORS on 06-10-2023 Sodium [Moles/Vol] 144 mmol/L 132-145 [facility] Serum or plasma urea nitroge n measurement (mass/volume)Ordered By: NHI DORY on 06-10-2023 Urea nitrogen [Mass/Vol] 12.3 mg/dL 3.2-26.9 [facility] Serum or plasma urea nitroge n/creatinine mass ratioOrdered By: NHI DORY on 06-10-2023 Urea nitrogen/Creatinine [Mass ratio] 12 mg/mg 6-20 [facility] Whole blood hemoglobin measu rement (mass/volume)Ordered By: NHI CONNORS on 06-10-2023 Hemoglobin (Bld) [Mass/Vol] 12.9 g/dL 12.4-17.[address] [facility] [address] BRAIN STEALTH WITHOUT CON TRASTon 06-07-2023 CT BRAIN STEALTH WITHOUT CONTRAST EXAMINATION: CT BRAIN STEALTH WITHOUT CONTRAST HISTORY: pt to have Cranioplasty Stealth protocol Injury/Trauma or Illness?:Injury/Trauma How long have you had these symptoms (acute/chronic)?:Acute Reason for exam?:pt to have cranioplasty. Cerebrovascular accident (CVA) due to thrombosis of right middle cerebral artery Type of Exam?:Initial I63.311 Cerebrovascular accident (CVA) due to thrombosis of right middle cerebral artery (HCC)Stealth protocol Injury/Trauma or Illness?:Injury/Traumapt to have Cranioplasty COMPARISON: Head CT dated 06/06/2019. CONTRAST: None. TECHNIQUE CT Head with axial, coronal and sagittal reformats. Exam was performed utilizing flat angle (stealth) seen technique for preoperative evaluation prior to cranioplasty. Dose reduction techniques were achieved by using automated exposure control and/or adjustment of mA and/or kV according to patient size and/or use of iterative reconstruction technique. FINDINGS: Redemonstration of prior right-sided craniectomy. There is a large area of encephalomalacia present on the right consistent with prior left MCA infarction. External herniation is seen in relation to the craniectomy. There is additional compensatory enlargement of the right lateral ventricle secondary to volume loss. Underlying atrophy is additionally seen. No intraparenchymal or extra-axial hemorrhage. 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 No hyperdense intraluminal thrombus is seen. Visualized sinuses are clear. Mastoid sclerosis is present. Residual mastoids and middle ears are clear.. No displaced or depressed calvarial fracture is seen. There is right-sided craniectomy. IMPRESSION: 1. Preoperative localization examination for cranioplasty in this patient who has had prior right-sided craniectomy for prior large right-sided MCA infarction. Workstation ID: [id number] Dictated by: SHELLY SERNA on [facility] Jun 08, 2023 2:09:10 AM EST Transcribed by: SHELLY SERNA on [facility] Jun 08, 2023 2:09:10 AM EST Finalized by: SHELLY SERNA on [facility] Jun 08, 2023 2:09:10 AM EST Normal [facility] Comment on above: Order Comment: Miranda protocol Injury/Trauma or Illness?:Injury/Trauma How long have you had these symptoms (acute/chronic)?:Acute Reason for exam?:pt to have cranio plasty CVAto have Cranioplasty Cerebrovascular accident (CVA) due to thrombosis of right middle cerebral artery Type of Exam?:Initial Mechanism of injury?:CVA Absolute immature granulocyt e countOrdered By: RUFUS MELENDEZ on 02-11-2023 Immature granulocytes (Bld) [#/Vol] 0.01 10*3/uL 0.00-0.10 [facility] Absolute lymphocyte countOrd ered By: RUFUS MELENDEZ on 02-11-2023 Lymphocytes Auto (Unsp spec) [#/Vol] 1.70 10*3/uL 1.30-2.90 [facility] Basophils Auto (Bld) [#/Vol] Ordered By: RUFUS MELENDEZ on 02-11-2023 Basophils (Bld) [#/Vol] 0.03 10*3/uL 0.00-0.10 [facility] Blood absolute eosinophil co untOrdered By: RUFUS MELENDEZ on 02-11-2023 Eosinophils (Bld) [#/Vol] 0.20 10*3/uL 0.00-0.20 [facility] Blood basophils/100 leukocyt esOrdered By: RUFUS MELENDEZ on 02-11-2023 Basophils/100 WBC (Bld) 0.5 % 0.2-1.0 [facility] Blood hematocrit (volume fra ction)Ordered By: RUFUS MELENDEZ on 02-11-2023 Hematocrit (Bld) [Volume fraction] 39.7 % 36.7-50.6 [facility] Blood leukocytes count (numb er/volume)Ordered By: RUFUS MELENDEZ on 02-11-2023 WBC (Bld) [#/Vol] 6.5 10*3/uL 3.6-10.8 [facility] Calcium measurement (mass fr action)Ordered By: RUFUS MELENDEZ on 02-11-2023 Calcium (Unsp spec) [Mass fraction] 8.4 mg/dL 8.2-10.0 [facility] Determination of erythrocyte mean corpuscular volume (MCV)Ordered By: RUFUS MELENDEZ on 02-11-2023 MCV (RBC) [Entitic vol] 88.0 fL 80.0-94.0 [facility] Eosinophil count as percenta ge of total leukocytesOrdered By: RUFUS MELENDEZ on 02-11-2023 Eosinophils/100 WBC (Unsp spec) 3.1 % 0.9-2.9 [facility] Erythrocyte distribution wid th ratioOrdered By: RUFUS MELENDEZ on 02-11-2023 Erythrocyte distribution width (RBC) [Ratio] 13.4 % 11.5-14.5 [facility] Glomerular filtration rate ( GFR) estimation/1.73 sq m using serum, plasma, or whole bOrdered By: RUFUS MELENDEZ on 02-11-2023 GFR/1.73 sq M.predicted among blacks CKD-EPI (S/P/Bld) [Vol rate/Area] > [address] [facility] Comment on above: Chronic Kidney Disea se less than 60 mL/min/1.73 [id number] Failure less than 15 mL/min/1.73 [id number] estimated GFR by age:50-59 years 93 mL/min/1.73 m2 GFR/1.73 sq M.predicted among non-blacks CKD-EPI (S/P/Bld) [Vol rate/Area] > [address] [facility] Immature granulocytes (Bld) [#/Vol]Ordered By: RUFUS MELENDEZ on 02-11-2023 Immature granulocytes/100 WBC (Bld) 0.20 % 0.00-1.00 [facility] Laboratory - Hematology and Cell countsOrdered By: RUFUS TRIOL on 02-11-2023 Platelet mean volume (Bld) [Entitic vol] 9.2 fL 7.4-10.4 [facility] RBC (Bld) [#/Vol] 4.51 10*6/uL 4.13-5.69 [facility] Lymphocytes/100 WBC Auto (Bl d)Ordered By: RUFUS TRIOL on 02-11-2023 Lymphocytes/100 WBC (Bld) 25.3 % 17.0-45.5 [facility] MCH Auto (RBC) [Entitic mass ]Ordered By: RUFUS TRIOL on 02-11-2023 MCH (RBC) [Entitic mass] 28.8 pg 27.0-31.0 [facility] MCHC Auto (RBC) [Mass/Vol]Or dered By: RUFUS TRIOL on 02-11-2023 MCHC (RBC) [Mass/Vol] 32.7 g/dL 33.0-37.0 [facility] Monocytes Auto (Bld) [#/Vol] Ordered By: RUFUS TRIOL on 02-11-2023 Monocytes (Bld) [#/Vol] 0.70 10*3/uL 0.30-0.80 [facility] Monocytes/100 WBC Auto (Bld) Ordered By: RUFUS TRIOL on 02-11-2023 Monocytes/100 WBC (Bld) 10.1 % 5.5-11.7 [facility] Neutrophils Auto (Bld) [#/Vo l]Ordered By: RUFUS TRIOL on 02-11-2023 Neutrophils (Bld) [#/Vol] 3.98 10*3/uL 2.20-4.80 [facility] Neutrophils seg % bldOrdered By: RUFUS TRIOL on 02-11-2023 Segmented neutrophils/100 WBC (Bld) 60.8 % 43.0-65.0 [facility] Platelets Auto (Bld) [#/Vol] Ordered By: RUFUS TRIOL on 02-11-2023 Platelets (Bld) [#/Vol] 135 10*3/uL 148-402 [facility] Potassium measurement (mass/ mass)Ordered By: RUFUS MELENDEZ on 02-11-2023 Potassium (Unsp spec) [Mass/Mass] 4.1 mmol/L 3.3-5.1 [facility] Serum or plasma anion gapOrd ered By: RUFUS MELENDEZ on 02-11-2023 Anion gap [Moles/Vol] 8.1 mmol/L 8.0-16.0 [facility] Serum or plasma carbon dioxi de measurement (moles/volume)Ordered By: RUFUS MELENDEZ on 02-11-2023 CO2 [Moles/Vol] 31 mmol/L 21-34 [facility] Serum or plasma chloride jane surement (moles/volume)Ordered By: RUFUS MELENDEZ on 02-11-2023 Chloride [Moles/Vol] 111 mmol/L 94-110 [facility] Serum or plasma creatinine m easurement (mass/volume)Ordered By: RUFUS MELENDEZ on 02-11-2023 Creatinine [Mass/Vol] 1.14 mg/dL 0.50-1.17 [facility] Serum or plasma glucose betty urement (mass/volume)Ordered By: RUFUS MELENDEZ on 02-11-2023 Glucose [Mass/Vol] 84 mg/dL 65-100 [facility] Serum or plasma sodium measu rement (moles/volume)Ordered By: RUFUS MELENDEZ on 02-11-2023 Sodium [Moles/Vol] 146 mmol/L 132-145 [facility] Serum or plasma urea nitroge n measurement (mass/volume)Ordered By: RUFUS MELENDEZ on 02-11-2023 Urea nitrogen [Mass/Vol] 10.6 mg/dL 3.2-26.9 [facility] Serum or plasma urea nitroge n/creatinine mass ratioOrdered By: RUFUS MELENDEZ on 02-11-2023 Urea nitrogen/Creatinine [Mass ratio] 9 mg/mg 6-20 [facility] Whole blood hemoglobin measu rement (mass/volume)Ordered By: RUFUS MELENDEZ on 02-11-2023 Hemoglobin (Bld) [Mass/Vol] 13.0 g/dL 12.4-17.3 [facility] ALT (SGPT) ser/plasOrdered B y: SHAYLA LOPEZ on 02-10-2023 ALT [Catalytic activity/Vol] 85 U/L 13-66 [facility] Blood total protein measurem entOrdered By: SHAYLA LOPEZ on 02-10-2023 Protein [Mass/Vol] 5.8 g/dL 6.1-8.2 [facility] Fibrin D-dimer FEU measureme nt in platelet poor plasma (mass/volume)Ordered By: SHAYLA LOPEZ on 02-10-2023 Fibrin D-dimer FEU (PPP) [Mass/Vol] 1.06 mg/L FEU 0.00-0.49 [facility] Comment on above: Negative Predictive Value = <0.50 mg/L FEUThis D-dimer assay may be used in conjunction with a non-high clinicalpretest probability (PTP) assessment model to exclude pulmonary embolism(PE) disease. In addition, it is indicated as an aid in the exclusion ofdeep vein thrombosis (DVT).The measurement of D-dimer should not be used as an aid in the diagnosis ofvenous thromboembolism (VTE), in a patients with:-Therapeutic dose anticoagulant therapy > 24 hours-Fibrinolytic therapy within previous 7 days-Trauma or surgery within previous 4 weeks-Disseminated malignancies-Aortic aneurysm-Sepsis, severe infections, pneumonia, severe skin infections-Liver cirrhosis- Interpretation of serum or p lasma cardiac troponin I measurement by high sensitivityOrdered By: SHAYLA LOPEZ on 02-10-2023 Troponin I.cardiac High sensitivity method Ql [Interp] 5 ng/L 0-76 [facility] Comment on above: Interpretation comme nt:High-sensitivity troponin I (hsTnI) assay can reliably detect low troponinconcentrations relative to conventional troponin assays. It is thepreferred marker of myocardial necrosis as recommended by the FourthUniversal Definition of Myocardial Infarction Guidelines.The diagnosis of acute myocardial infarction (AMI) is made based on a riseor fall of troponin with at least one measurement exceeding the laboratory'supper limit of normal (indicating myocardial injury), in the context ofreasonable suspicion for coronary ischemia (e.g. typical symptoms, changeson ECG, evidence for loss of myocardial infarction or demonstration ofobstructive coronary artery disease).Note: Although abnormal hsTnI values reflect injury to myocardial cells, anelevated hsTnI does not indicate the cause of injury (i.e. ischemia versusnon-ischemic disease).In some cases, myocardial injury is chronic and relatively stable such thathsTnI values remain elevated but do not change substantially over hours todays (examples include chronic kidney disease, heart failure or advancedpatient age).When determining whether there has been a significant rise or fall oftroponin on serial sampling, absolute change in troponin concentration hasgreater diagnostic accuracy for AMI then relative change criteria. A changeof >7 ng/L over a 2-hour interval or a change of >10 ng/L over a 3-hourinterval is suggested as a significant change. If the initial hsTnI isbelow or at the 99th percentile upper reference limit, a 50% change from thebaseline is considered significant. If the initial hsTnI is above the 99thpercentile upper reference limit, a 20% change from the baseline value isconsidered significant. Natriuretic peptide B [Mass/ Vol]Ordered By: SHAYLA LOPEZ on 02-10-2023 Natriuretic peptide B (Bld) [Mass/Vol] 50 pg/mL 0-125 [facility] Comment on above: NOTE-Dietary supplem ents containing high biotin levels may cause significantinterference with affected lab tests, including cardiovascular diagnostictests and hormone tests that use biotin technology. Incorrect test resultsmay be generated if there is biotin in the patients specimen. PTT PPPOrdered By: SHAYLA LOPEZ on 02-10-2023 aPTT Coag (PPP) [Time] 24.3 '' 19.5-32.1 [facility] Comment on above: New Reference Ranges effective 2018. Platelet poor plasma interna tional normalized ratio (INR)Ordered By: SHAYLA LOPEZ on 02-10-2023 INR Coag (PPP) [Relative time] 1.01 {INR} [facility] Comment on above: 2.0 - 3.0 Group A2.5 - 3.5 Group BGroup A indications: Prophylaxis and treatment of venousthrombosis. Treatment of pulmonary embolism. Prevention ofsystemic embolism. Tissue heart valves. Acute myocardialinfarction. Valvular heart disease. Atrial fibrillation.Group B indications: Mechanical prosthetic valves. . Prothrombin time (PT) in bryan telet poor plasma by coagulation assayOrdered By: SHAYLA LOPEZ on 02-10-2023 PT Coag (PPP) [Time] 10.2 '' 8.9-12.2 [facility] Comment on above: New Reference Ranges effective 2018. Serum globulin measurement ( mass/volume)Ordered By: SHAYLA LOPEZ on 02-10-2023 Globulin (S) [Mass/Vol] 3.7 g/dL 1.5-4.5 [facility] Serum or plasma albumin betty urement by bromocresol purple (BCP) dye binding method (mOrdered By: SHAYLA LOPEZ on 02-10-2023 Albumin BCP dye [Mass/Vol] 2.1 g/dL 3.4-5.0 [facility] Serum or plasma albumin/glob ulin mass ratioOrdered By: SHAYLA LOPEZ on 02-10-2023 Albumin/Globulin [Mass ratio] 0.6 {ratio} 1.1-2.5 [facility] Serum or plasma alkaline alexa sphatase measurement (enzymatic activity/volume)Ordered By: SHAYLA LOPEZ on 02-10-2023 ALP [Catalytic activity/Vol] 109 U/L 54-112 [facility] Serum or plasma aspartate am inotransferase measurement with P-5'-P (enzymatic activitOrdered By: SHAYLA LOPEZ on 02-10-2023 AST With P-5'-P [Catalytic activity/Vol] 110 U/L 3-39 [facility] Serum or plasma bilirubin me asurement (mass/volume)Ordered By: SHAYLA LOPEZ on 02-10-2023 Bilirubin [Mass/Vol] 0.32 mg/dL 0.00-0.99 [facility] Serum or plasma magnesium me asurement (mass/volume)Ordered By: SHAYLA LOPEZ on 02-10-2023 Magnesium [Mass/Vol] 2.2 mg/dL 1.3-2.3 [facility] Troponin I measurement by hi ghly sensitive enzyme immunoassayOrdered By: SHAYLA LOPEZ on 02-10-2023 Troponin I.cardiac High sensitivity method [Mass/Vol] 1 ng/L [facility] Troponin I.cardiac High sensitivity method [Mass/Vol] 20 % [facility] ALT (SGPT) ser/plasOrdered B y: RAZ RAJAN on 11-17-2022 ALT [Catalytic activity/Vol] 34 U/L [facility] Absolute immature granulocyt e countOrdered By: RAZ RAJAN on 11-17-2022 Immature granulocytes (Bld) [#/Vol] 0.01 10*3/uL 0.00-0.10 [facility] Absolute lymphocyte countOrd ered By: RAZ RAJAN on 11-17-2022 Lymphocytes Auto (Unsp spec) [#/Vol] 1.90 10*3/uL 1.30-2.90 [facility] Basophils Auto (Bld) [#/Vol] Ordered By: RAZ RAJAN on 11-17-2022 Basophils (Bld) [#/Vol] 0.02 10*3/uL 0.00-0.10 [facility] Blood absolute eosinophil co untOrdered By: RAZ RAJAN on 11-17-2022 Eosinophils (Bld) [#/Vol] 0.20 10*3/uL 0.00-0.20 [facility] Blood basophils/100 leukocyt esOrdered By: RAZ RAJAN on 11-17-2022 Basophils/100 WBC (Bld) 0.3 % 0.2-1.0 [facility] Blood hematocrit (volume fra ction)Ordered By: RAZ RAJAN on 11-17-2022 Hematocrit (Bld) [Volume fraction] 41.1 % 36.7-50.6 [facility] Blood leukocytes count (numb er/volume)Ordered By: RAZ RAJAN on 11-17-2022 WBC (Bld) [#/Vol] 7.5 10*3/uL 3.6-10.8 [facility] Blood total protein measurem entOrdered By: RAZ RAJAN on 11-17-2022 Protein [Mass/Vol] 6.3 g/dL 6.1-8.2 [facility] Calcium measurement (mass fr action)Ordered By: RAZ RAJAN on 11-17-2022 Calcium (Unsp spec) [Mass fraction] 8.9 mg/dL 8.2-10.0 [facility] Determination of erythrocyte mean corpuscular volume (MCV)Ordered By: RAZ RAJAN on 11-17-2022 MCV (RBC) [Entitic vol] 86.0 fL 80.0-94.0 [facility] Eosinophil count as percenta ge of total leukocytesOrdered By: RAZ RAJAN on 11-17-2022 Eosinophils/100 WBC (Unsp spec) 2.9 % 0.9-2.9 [facility] Erythrocyte distribution wid th ratioOrdered By: RAZ RAJAN on 11-17-2022 Erythrocyte distribution width (RBC) [Ratio] 13.1 % 11.5-14.5 [facility] Glomerular filtration rate ( GFR) estimation/1.73 sq m using serum, plasma, or whole bOrdered By: RAZ RAJAN on 11-17-2022 GFR/1.73 sq M.predicted among blacks CKD-EPI (S/P/Bld) [Vol rate/Area] > [address] >60 [facility] Comment on above: Chronic Kidney Disea se less than 60 mL/min/1.73 [id number] Failure less than 15 mL/min/1.73 [id number] estimated GFR by age:40-49 years 99 mL/min/1.73 m2 GFR/1.73 sq M.predicted among non-blacks CKD-EPI (S/P/Bld) [Vol rate/Area] 58 >60 [facility] Immature granulocytes (Bld) [#/Vol]Ordered By: RAZ RAJAN on 11-17-2022 Immature granulocytes/100 WBC (Bld) 0.10 % 0.00-1.00 [facility] Laboratory - Hematology and Cell countsOrdered By: RAZ RAJAN on 11-17-2022 Platelet mean volume (Bld) [Entitic vol] 9.2 fL 7.4-10.4 [facility] Platelets (Bld) [#/Vol] 209 10*3/uL 148-402 [facility] RBC (Bld) [#/Vol] 4.78 10*6/uL 4.13-5.69 [facility] Lymphocytes/100 WBC Auto (Bl d)Ordered By: RAZ RAJAN on 11-17-2022 Lymphocytes/100 WBC (Bld) 26.0 % 17.0-45.5 [facility] MCH Auto (RBC) [Entitic mass ]Ordered By: RAZ RAJAN on 11-17-2022 MCH (RBC) [Entitic mass] 28.0 pg 27.0-31.0 [facility] MCHC Auto (RBC) [Mass/Vol]Or dered By: RAZ RAJAN on 11-17-2022 MCHC (RBC) [Mass/Vol] 32.6 g/dL 33.0-37.0 [facility] Monocytes Auto (Bld) [#/Vol] Ordered By: RAZ RAJAN on 11-17-2022 Monocytes (Bld) [#/Vol] 0.50 10*3/uL 0.30-0.80 [facility] Monocytes/100 WBC Auto (Bld) Ordered By: RAZ RAJAN on 11-17-2022 Monocytes/100 WBC (Bld) 6.8 % 5.5-11.7 [facility] Neutrophils Auto (Bld) [#/Vo l]Ordered By: RAZ RAJAN on 11-17-2022 Neutrophils (Bld) [#/Vol] 4.77 10*3/uL 2.20-4.80 [facility] Neutrophils seg % bldOrdered By: RAZ RAJAN on 11-17-2022 Segmented neutrophils/100 WBC (Bld) 63.9 % 43.0-65.0 [facility] Potassium measurement (mass/ mass)Ordered By: RAZ RAJAN on 11-17-2022 Potassium (Unsp spec) [Mass/Mass] 3.5 mmol/L 3.3-5.1 [facility] Serum globulin measurement ( mass/volume)Ordered By: RAZ RAJAN on 11-17-2022 Globulin (S) [Mass/Vol] 3.9 g/dL 1.5-4.5 [facility] Serum or plasma albumin betty urement by bromocresol purple (BCP) dye binding method (mOrdered By: RAZ RAJAN on 11-17-2022 Albumin BCP dye [Mass/Vol] 2.4 g/dL 3.4-5.0 [facility] Serum or plasma albumin/glob ulin mass ratioOrdered By: RAZ RAJAN on 11-17-2022 Albumin/Globulin [Mass ratio] 0.6 {ratio} 1.1-2.5 [facility] Serum or plasma alkaline alexa sphatase measurement (enzymatic activity/volume)Ordered By: RAZ RAJAN on 11-17-2022 ALP [Catalytic activity/Vol] 126 U/L 54-112 [facility] Serum or plasma anion gapOrd ered By: RAZ RAJAN on 11-17-2022 Anion gap [Moles/Vol] 7.5 mmol/L 8.0-16.0 [facility] Serum or plasma aspartate am inotransferase measurement with P-5'-P (enzymatic activitOrdered By: RAZ RAJAN on 11-17-2022 AST With P-5'-P [Catalytic activity/Vol] 15 U/L 3-39 [facility] Serum or plasma bilirubin me asurement (mass/volume)Ordered By: RAZ RAJAN on 11-17-2022 Bilirubin [Mass/Vol] 0.40 mg/dL 0.00-0.99 [facility] Serum or plasma carbon dioxi de measurement (moles/volume)Ordered By: RAZ RAJAN on 11-17-2022 CO2 [Moles/Vol] 31 mmol/L 21-34 [facility] Serum or plasma chloride jane surement (moles/volume)Ordered By: RAZ RAJAN 11-17-2022 Chloride [Moles/Vol] 109 mmol/L 94-110 [facility] Serum or plasma creatinine m easurement (mass/volume)Ordered By: RAZ RAJAN on 11-17-2022 Creatinine [Mass/Vol] 1.31 mg/dL 0.50-1.17 [facility] Serum or plasma glucose btety urement (mass/volume)Ordered By: RAZ RAJAN on 11-17-2022 Glucose [Mass/Vol] 114 mg/dL 65-100 [facility] Serum or plasma sodium measu rement (moles/volume)Ordered By: RAZ RAJAN on 11-17-2022 Sodium [Moles/Vol] 144 mmol/L 132-145 [facility] Serum or plasma urea nitroge n measurement (mass/volume)Ordered By: RAZ RAJAN on 11-17-2022 Urea nitrogen [Mass/Vol] 11.7 mg/dL 3.2-26.9 [facility] Serum or plasma urea nitroge n/creatinine mass ratioOrdered By: RAZ RAJAN on 11-17-2022 Urea nitrogen/Creatinine [Mass ratio] 9 mg/mg 6-20 [facility] Whole blood hemoglobin measu rement (mass/volume)Ordered By: RAZ RAJAN on 11-17-2022 Hemoglobin (Bld) [Mass/Vol] 13.4 g/dL 12.4-17.3 [facility] Absolute immature granulocyt e countOrdered By: PIA GARLAND on 02-16-2022 Immature granulocytes (Bld) [#/Vol] 0.09 10*3/uL 0.00-0.10 [facility] Absolute lymphocyte countOrd ered By: PIA GARLAND on 02-16-2022 Lymphocytes Auto (Unsp spec) [#/Vol] 1.90 10*3/uL 1.30-2.90 [facility] Culture with gram stain, bod y fluidOrdered By: PIA GARLAND on 02-16-2022 MCH (RBC) [Entitic mass] 29.7 pg 27.0-31.0 [facility] Eosinophils/100 WBC Auto (Bl d)Ordered By: PIA GARLAND on 02-16-2022 Eosinophils/100 WBC (Bld) 3.8 % 0.9-2.9 [facility] Erythrocyte distribution wid th ratioOrdered By: PIA GARLAND on 02-16-2022 Erythrocyte distribution width (RBC) [Ratio] 13.8 % 11.5-14.5 [facility] Immature granulocytes/100 WB C Auto (Bld)Ordered By: PIA GARLAND on 02-16-2022 Immature granulocytes/100 WBC (Bld) 1.10 % 0.00-1.00 [facility] - Chemistry and C hemistry - challengeOrdered By: PIA GARLAND on 02-16-2022 Calcium [Mass/Vol] 9.3 mg/dL 8.2-10.0 [facility] Creatinine [Mass/Vol] 1.12 mg/dL 0.50-1.17 [facility] Glucose [Mass/Vol] 109 mg/dL 65-100 [facility] Urea nitrogen [Mass/Vol] 9.8 mg/dL 3.2-26.9 [facility] Urea nitrogen/Creatinine [Mass ratio] 9 mg/mg 6-20 [facility] - Hematology and Cell countsOrdered By: PIA GARLAND on 02-16-2022 Basophils (Bld) [#/Vol] 0.03 10*3/uL 0.00-0.10 [facility] Hematocrit (Bld) [Volume fraction] 40.1 % 36.7-50.6 [facility] MCHC (RBC) [Mass/Vol] 32.2 g/dL 33.0-37.0 [facility] Platelet mean volume (Bld) [Entitic vol] 8.8 fL 7.4-10.4 [facility] Platelets (Bld) [#/Vol] 255 10*3/uL 148-402 [facility] RBC (Bld) [#/Vol] 4.34 10*6/uL 4.13-5.69 [facility] WBC (Bld) [#/Vol] 8.2 10*3/uL 3.6-10.8 [facility] McvOrdered By: PIA Hernandez on 02-16-2022 MCV (RBC) [Entitic vol] 92.4 fL 80.0-94.0 [facility] Monocyte %Ordered By: PIA GARLAND on 02-16-2022 Monocyte % 140 mmol/L 132-145 [facility] Monocyte % 3.9 mmol/L 3.3-5.1 [facility] Monocyte % 103 mmol/L 94-110 [facility] Monocyte % 31 mmol/L 21-34 [facility] Monocyte % 12.9 g/dL 12.4-17.3 [facility] Monocytes (Bld) [#/Vol] 5.17 10*3/uL 2.20-4.80 [facility] Monocytes (Bld) [#/Vol] 0.70 10*3/uL 0.30-0.80 [facility] Monocytes (Bld) [#/Vol] 0.30 10*3/uL 0.00-0.20 [facility] Monocytes/100 WBC (Bld) 22.9 % 17.0-45.5 [facility] Monocytes/100 WBC (Bld) 8.7 % 5.5-11.7 [facility] Monocytes/100 WBC (Bld) 0.4 % 0.2-1.0 [facility] Neutrophils seg % bldOrdered By: PIA GARLAND on 02-16-2022 Segmented neutrophils/100 WBC (Bld) 63.1 % 43.0-65.0 [facility] No Panel InformationOrdered By: PIA GARLAND on 02-16-2022 Estimated GFR (MDRD) Amer > [address] >[address] [facility] Comment on above: Chronic Kidney Disea se less than 60 mL/min/1.73 m2 Kidney Failure less than 15 mL/min/1.73 m2 Average estimated GFR by age: 40-49 years 99 mL/min/1.73 m2 Estimated GFR (MDRD) Non-Af Amer > [address] [facility] Serum or plasma anion gapOrd ered By: PIA GARLAND on 02-16-2022 Anion gap [Moles/Vol] 9.9 mmol/L 8.0-16.0 [facility] Laboratory - Chemistry and C hemistry - challengeOrdered By: PIA GARLAND on 02-15-2022 Magnesium [Mass/Vol] 1.8 mg/dL 1.3-2.3 [facility] Monocyte %Ordered By: PIA GARLAND on 02-15-2022 Monocyte % 2.0 mg/dL 2.5-4.9 [facility] Albumin ser/plasOrdered By: BORA LONG on 02-13-2022 Albumin [Mass/Vol] 1.8 g/dL 3.4-5.0 [facility] Blood total protein measurem entOrdered By: BORA LONG on 02-13-2022 Protein [Mass/Vol] 5.6 g/dL 6.1-8.2 [facility] Culture with gram stain, bod y fluidOrdered By: BORA LONG on 02-13-2022 Albumin/Globulin [Mass ratio] 0.5 {ratio} 1.1-2.5 [facility] AST [Catalytic activity/Vol] 61 U/L 3-39 [facility] Direct bilirubinOrdered By: BORA LONG on 02-13-2022 Bilirubin.direct [Mass/Vol] 0.28 mg/dL 0.00-0.42 [facility] - Chemistry and C hemistry - challengeOrdered By: BORA LONG on 02-13-2022 ALP [Catalytic activity/Vol] 176 U/L 54-112 [facility] ALT [Catalytic activity/Vol] 154 U/L 13-66 [facility] Globulin (S) [Mass/Vol] 3.8 g/dL 1.5-4.5 [facility] Monocyte %Ordered By: BORA MADDEN on 02-13-2022 Monocyte % 0.60 mg/dL 0.00-0.99 [facility] - Chemistry and C hemistry - challengeOrdered By: PIA GARLAND on 02-12-2022 Natriuretic peptide B (Bld) [Mass/Vol] 821 pg/mL 0-125 [facility] Comment on above: NOTE-Dietary supplem ents containing high biotin levels may cause significant interference with affected lab tests, including cardiovascular diagnostic tests and hormone tests that use biotin technology. Incorrect test results may be generated if there is biotin in the patients specimen. Robin's test before arterial blood gasOrdered By: PIA GARLAND on 02-09-2022 Arterial patency Wrist artery --pre arterial puncture y [facility] Alveolar to arterial oxygen pressure gradient determinationOrdered By: PIA GARLAND on 02-09-2022 Alveolar-arterial oxygen Partial pressure difference 271.[address] [facility] Arterial blood carboxyhemogl obin measurementOrdered By: PIA GARLAND on 02-09-2022 Carboxyhemoglobin (BldA) [Mass fraction] 1.3 % 0.0-3.09 [facility] Arterial blood deoxyhemoglob in/total hemoglobinOrdered By: PIA GARLAND on 02-09-2022 Deoxyhemoglobin (BldA) [Mass fraction] 2.3 % 0.0-5.09 [facility] Arterial blood fractional ox yhemoglobinOrdered By: PIA GARLAND on 02-09-2022 Oxyhemoglobin (BldA) [Mass fraction] 96.1 % 92.9-100.9 [facility] Arterial blood methemoglobin /total hemoglobinOrdered By: PIA GARLAND on 02-09-2022 Methemoglobin (BldA) [Mass fraction] 0.3 % 0.0-1.59 [facility] Arterial blood standard bica rbonate measurementOrdered By: PIA GARLAND on 02-09-2022 HCO3 standard (BldA) [Moles/Vol] 23.6 mmol/L 21.9-26.9 [facility] Base excess Calc (BldA) [Mol es/Vol]Ordered By: PIA GARLAND on 02-09-2022 Base excess Calc (Bld) [Moles/Vol] -1.8000 mmol/L -2.1-2.29 [facility] Basophils/100 WBC Manual cnt (Body fld)Ordered By: PIA GARLAND on 02-09-2022 Basophils/100 WBC (Body fld) 0 % 0-1 [facility] CO2 (BldA) [Partial pressure ]Ordered By: PIA GARLAND on 02-09-2022 CO2 (Bld) [Partial pressure] 42.6 mm[Hg] 34.9-45.9 [facility] Culture with gram stain, bod y fluidOrdered By: PIA GARLAND on 02-09-2022 Culture with gram stain, body fluid Appear normal [facility] Eosinophils Manual cnt (Bld) [#/Vol]Ordered By: PIA GARLAND on 02-09-2022 Eosinophils/100 WBC (Bld) 0 % 1-3 [facility] Hemoglobin (BldA) [Mass/Vol] Ordered By: PIA GARLAND on 02-09-2022 Hemoglobin (Bld) [Mass/Vol] 13.7 g/dL 12.4-17.3 [facility] Monocytes Manual cnt (Bld) [ #/Vol]Ordered By: PIA GARLAND on 02-09-2022 Monocytes/100 WBC (Bld) 2 % 6-12 [facility] No Panel InformationOrdered By: PIA GARLAND on 02-09-2022 Blood Gas Comments bipap 18/02 [facility] Blood Gas Sample Site rr [facility] Blood Gas Ventilator Setting trial consultant [facility] FiO2 60 % 21-100 [facility] Neutrophils (Manual) 98 % 43-65 [facility] Plasma Lactic Acid, Venous 1.2 mmol/L 0.4-2.0 [facility] Comment on above: Please note change i n normal range Oxygen (BldA) [Partial press ure]Ordered By: PIA GARLAND on 02-09-2022 Oxygen (Bld) [Partial pressure] 97.8 mm[Hg] 79.9-99.9 [facility] pH (BldA)Ordered By: PIA VELASCO on 02-09-2022 pH (Bld) 7.361 [pH] 7.34-7.46 [facility] Amylase ser/plasOrdered By: GUZMAN LYNN on 02-08-2022 Amylase [Catalytic activity/Vol] 55 U/L 25-115 [facility] Appearance urOrdered By: SHAHEEN LYNN on 02-08-2022 Appearance (U) Clear Clear [facility] Color urOrdered By: GUZMAN LYNN on 02-08-2022 Color (U) yellow Yellow [facility] Detection in respiratory spe cimen of antigen of either or both severe acute respiratoOrdered By: GUZMAN LYNN on 02-08-2022 SARS-CoV+SARS-CoV-2 (COVID-19) Ag IA.rapid Ql (Resp) Negative Negative [facility] Comment on above: The Lisa 2 SARS Ant igen TRISH is a lateral flow immunofluorescent sandwich assay that is used with the Lisa 2 instrument intended for the qualitative detection of the nucleocapsid protein antigen from SARS-CoV-2 in nasopharyngeal (ETHOLOGIST) and nasal (NS) swab specimens directly or after the swabs have been added to viral transport media from individuals who are suspected of COVID-19 by their healthcare provider. Testing is limited to laboratories certified under the Clinical Laboratory Improvement Amendments of 1988 (CLIA), 42 U.S.C. 263a, that meet the requirements to perform moderate, high or waived complexity tests. This test is authorized for use at the Point of Care (POC), i.e., in patient care settings operating under a CLIA Certificate of Waiver, Certificate of Compliance, or Certificate of Accreditation. The SARS Antigen TRISH does not differentiate between SARS-CoV and SARS-CoV-2. Results are for the identification of SARS-CoV-2 nucleocapsid protein antigen. Antigen is generally detectable in upper respiratory specimens during the acute phase of infection. Positive results indicate the presence of viral antigens, but clinical correlation with patient history and other diagnostic information is necessary to determine infection status. Positive results do not rule out bacterial infection or co-infection with other viruses. The agent detected may not be the definite cause of disease. Negative results should be treated as presumptive and confirmed with a molecular assay, if necessary for patient management. Negative results do not rule out COVID-19 and should not be used as the sole basis for treatment or patient management decisions, including infection control decisions. Negative results should be considered in the context of a patient s recent exposures, history and the presence of clinical signs and symptoms consistent with COVID-19. Ketones Test strip Ql (U)Ord ered By: GUZMAN LYNN on 02-08-2022 Ketones Ql (U) Negative Negative [facility] - Chemistry and C hemistry - challengeOrdered By: GUZMAN LYNN on 02-08-2022 Bilirubin Ql (U) Negative Negative [facility] Glucose Ql (U) Normal Negative [facility] Lipase ser/plasOrdered By: Dayanara LYNN on 02-08-2022 Lipase [Catalytic activity/Vol] 79 U/L 65-230 [facility] Nitrite Test strip Ql (U)Ord ered By: GUZMAN LYNN on 02-08-2022 Nitrite Ql (U) Negative Negative [facility] No Panel InformationOrdered By: GUZMAN LYNN on 02-08-2022 Influenza Type A Antigen Negative (Negative) [facility] Influenza Type B Antigen Negative (Negative) [facility] Urine Urobilinogen Normal mg/dL Normal-1.0 [facility] Prothrombin Time < 8.9 '' 8.9-12.2 [facility] Comment on above: New Reference Ranges effective 2018. PTT PPPOrdered By: GUZMAN CANTU on 02-08-2022 aPTT Coag (PPP) [Time] 24.9 '' 19.5-32.1 [facility] Comment on above: New Reference Ranges effective 2018. Protein ur QLOrdered By: SHAHEEN LYNN on 02-08-2022 Protein Ql (U) Negative Negative [facility] RBC Test strip (U) [#/Vol]Or dered By: GUZMAN LYNN on 02-08-2022 RBC (U) [#/Vol] Negative Negative [facility] Severe acute respiratory syn drome coronavirus 2 (SARS-CoV-2) RNA detection by probe aOrdered By: GUZMAN LYNN on 02-08-2022 SARS-CoV-2 (COVID-19) RNA ALEKSEY+probe Ql (Unsp spec) Not detected Not Detected [facility] Comment on above: This nucleic acid am plification test was developed and its performance characteristics determined by [employer]. Nucleic acid amplification tests include RT-PCR and TMA. This test has not been FDA cleared or approved. This test has been authorized by FDA under an Emergency Use Authorization (EUA). This test is only authorized for the duration of time the declaration that circumstances exist justifying the authorization of the emergency use of in vitro diagnostic tests for detection of SARS-CoV-2 virus and/or diagnosis of COVID-19 infection under section 564(b)(1) of the Act, 21 U.S.C. 360bbb-3(b) (1), unless the authorization is terminated or revoked sooner. When diagnostic testing is negative, the possibility of a false negative result should be considered in the context of a patient's recent exposures and the presence of clinical signs and symptoms consistent with COVID-19. An individual without symptoms of COVID-19 and who is not shedding SARS-CoV-2 virus would expect to have a negative (not detected) result in this assay. Performed at: [address] [id number] Staking Technician: Madhu Ruiz PhD, Phone: [phone] Specific gravity Test strip (U) [Rel density]Ordered By: GUZMAN LYNN on 02-08-2022 Specific gravity (U) [Rel density] 1.015 1.015-1.[address] [facility] Urine leukocyte esterase det ection by dipstickOrdered By: GUZMAN LYNN on 02-08-2022 Leukocyte esterase Test strip Ql (U) Negative Negative [facility] pH Test strip (U)Ordered By: GUZMAN LYNN on 02-08-2022 pH (U) 6 [pH] [facility] LABORATORYOrdered By: SYSTEM SYSTEM on 05-29-2021 Albumin BCP dye [Mass/Vol] 2.1 G/dL Invalid Interpretation Code 3.2 - 4.8 G/dL ADM SS Albumin/Globulin [Mass ratio] 0.6 {ratio} Invalid Interpretation Code 0.9 - 1.6 ratio ADM SS ALP [Catalytic activity/Vol] 173 U/L Invalid Interpretation Code 38 - 126 U/L ADM SS ALT No additional P-5'-P [Catalytic activity/Vol] 609 U/L Invalid Interpretation Code 12 - 55 U/L AH ADM SS AST [Catalytic activity/Vol] 395 U/L Invalid Interpretation Code 8 - 34 U/L AH ADM SS Bilirubin [Mass/Vol] 0.80 mg/dL Invalid Interpretation Code 0.20 - 1.20 mg/dL AH ADM SS Calcium [Mass/Vol] 8.4 mg/dL Invalid Interpretation Code 8.7 - 10.4 mg/dL ADM SS Chloride [Moles/Vol] 109 mmol/L Invalid Interpretation Code 98 - 110 mEq/L ADM SS CO2 [Moles/Vol] 29 mmol/L Invalid Interpretation Code 22 - 32 mEq/L ADM SS Creatinine [Mass/Vol] 0.97 mg/dL Invalid Interpretation Code 0.60 - 1.40 mg/dL ADM SS Electrolyte Balance 5.0 mEq/L Invalid Interpretation Code 4.0 - 15.0 mEq/L ADM SS GFR/1.73 sq M.predicted among blacks MDRD (S/P/Bld) [Vol rate/Area] ml/min/1.73sqm Invalid Interpretation Code Chemistry S GFR/1.73 sq M.predicted among non-blacks MDRD (S/P/Bld) [Vol rate/Area] ml/min/1.73sqm Invalid Interpretation Code Chemistry S Globulin 3.3 G/dL Invalid Interpretation Code 1.5 - 3.8 G/dL ADM SS Glucose [Mass/Vol] 100 mg/dL Invalid Interpretation Code 70 - 110 mg/dL ADM SS Potassium [Moles/Vol] 3.6 mmol/L Invalid Interpretation Code 3.5 - 5.0 mEq/L ADM SS Protein [Mass/Vol] 5.4 G/dL Invalid Interpretation Code 5.7 - 8.2 G/dL ADM SS Sodium [Moles/Vol] 143 mmol/L Invalid Interpretation Code 136 - 145 mEq/L ADM SS Urea nitrogen [Mass/Vol] 13.0 mg/dL Invalid Interpretation Code 8.0 - 22.0 mg/dL ADM SS Urea nitrogen/Creatinine [Mass ratio] 13.4 ratio Invalid Interpretation Code 10.0 - 22.0 ratio ADM SS LABORATORYOrdered By: SYSTEM SYSTEM on 05-28-2021 Albumin BCP dye [Mass/Vol] 2.1 G/dL Invalid Interpretation Code 3.2 - 4.8 G/dL ADM SS Albumin/Globulin [Mass ratio] 0.7 {ratio} Invalid Interpretation Code 0.9 - 1.6 ratio ADM SS ALP [Catalytic activity/Vol] 153 U/L Invalid Interpretation Code 38 - 126 U/L ADM SS ALT No additional P-5'-P [Catalytic activity/Vol] 486 U/L Invalid Interpretation Code 12 - 55 U/L AH ADM SS AST [Catalytic activity/Vol] 409 U/L Invalid Interpretation Code 8 - 34 U/L AH ADM SS Basophils (Bld) [#/Vol] 0.00 103/mcL Invalid Interpretation Code 0.00 - 0.27 10^3/mcL AH Remisol SS Basophils/100 WBC (Bld) 0.1 % Invalid Interpretation Code 0.0 - 2.5 % AH Remisol SS Bilirubin [Mass/Vol] 0.80 mg/dL Invalid Interpretation Code 0.20 - 1.20 mg/dL AH ADM SS Calcium [Mass/Vol] 8.5 mg/dL Invalid Interpretation Code 8.7 - 10.4 mg/dL AH ADM SS Chloride [Moles/Vol] 109 mmol/L Invalid Interpretation Code 98 - 110 mEq/L AH ADM SS CO2 [Moles/Vol] 28 mmol/L Invalid Interpretation Code 22 - 32 mEq/L AH ADM SS Creatinine [Mass/Vol] 1.02 mg/dL Invalid Interpretation Code 0.60 - 1.40 mg/dL AH ADM SS CRP [Mass/Vol] mg/dL Invalid Interpretation Code 0.0 - 1.0 mg/dL AH ADM SS Electrolyte Balance 7.0 mEq/L Invalid Interpretation Code 4.0 - 15.0 mEq/L AH ADM SS Eosinophils (Bld) [#/Vol] 0.00 103/mcL Invalid Interpretation Code 0.00 - 0.65 10^3/mcL AH Remisol SS Eosinophils/100 WBC (Bld) 0.1 % Invalid Interpretation Code 0.0 - 6.0 % AH Remisol SS Erythrocyte distribution width (RBC) [Ratio] 15.2 % Invalid Interpretation Code 11.5 - 15.5 % Remisol SS Ferritin [Mass/Vol] 777.2 ng/mL Invalid Interpretation Code 26.0 - 388.0 ng/mL AH ADM SS GFR/1.73 sq M.predicted among blacks MDRD (S/P/Bld) [Vol rate/Area] ml/min/1.73sqm Invalid Interpretation Code AH Chemistry S GFR/1.73 sq M.predicted among non-blacks MDRD (S/P/Bld) [Vol rate/Area] ml/min/1.73sqm Invalid Interpretation Code Chemistry S Globulin 3.1 G/dL Invalid Interpretation Code 1.5 - 3.8 G/dL AH ADM SS Glucose [Mass/Vol] 96 mg/dL Invalid Interpretation Code 70 - 110 mg/dL AH ADM SS Hematocrit (Bld) [Volume fraction] 32.3 % Invalid Interpretation Code 40.0 - 52.0 % AH Remisol SS Hemoglobin (Bld) [Mass/Vol] 11.1 G/dL Invalid Interpretation Code 13.0 - 17.5 G/dL AH Remisol SS Lymphocytes (Bld) [#/Vol] 1.10 103/mcL Invalid Interpretation Code 0.90 - 4.32 10^3/mcL AH Remisol SS Lymphocytes/100 WBC (Bld) 26.4 % Invalid Interpretation Code 20.0 - 40.0 % AH Remisol SS Magnesium [Mass/Vol] 2.0 mg/dL Invalid Interpretation Code 1.6 - 2.4 mg/dL AH ADM SS MCH (RBC) [Entitic mass] 28.1 pg Invalid Interpretation Code 27.0 - 33.0 pg AH Remisol SS MCHC (RBC) [Mass/Vol] 34.3 G/dL Invalid Interpretation Code 32.0 - 36.0 G/dL AH Remisol SS MCV (RBC) [Entitic vol] 81.9 fL Invalid Interpretation Code 81.0 - 100.0 fL AH Remisol SS Monocytes (Bld) [#/Vol] 0.60 103/mcL Invalid Interpretation Code 0.09 - 1.40 10^3/mcL AH Remisol SS Monocytes/100 WBC (Bld) 13.6 % Invalid Interpretation Code 2.0 - 13.0 % AH Remisol SS Neutrophils (Bld) [#/Vol] 2.60 103/mcL Invalid Interpretation Code 2.25 - 8.10 10^3/mcL AH Remisol SS Neutrophils/100 WBC (Bld) 59.8 % Invalid Interpretation Code 50.0 - 75.0 % AH Remisol SS Platelet mean volume (Bld) [Entitic vol] 7.4 fL Invalid Interpretation Code 6.4 - 10.5 fL AH Remisol SS Platelets (Bld) [#/Vol] 259 103/mcL Invalid Interpretation Code 150 - 450 10^3/mcL AH Remisol SS Potassium [Moles/Vol] 3.4 mmol/L Invalid Interpretation Code 3.5 - 5.0 mEq/L AH ADM SS Protein [Mass/Vol] 5.2 G/dL Invalid Interpretation Code 5.7 - 8.2 G/dL AH ADM SS RBC (Bld) [#/Vol] 3.94 106/mcL Invalid Interpretation Code 4.50 - 6.00 10^6/mcL AH Remisol SS Sodium [Moles/Vol] 144 mmol/L Invalid Interpretation Code 136 - 145 mEq/L AH ADM SS Troponin I.cardiac DL <= 0.01 ng/mL [Mass/Vol] 2.93 ng/L Invalid Interpretation Code 0.00 - 54.00 ng/L AH ADM SS Urea nitrogen [Mass/Vol] 14.0 mg/dL Invalid Interpretation Code 8.0 - 22.0 mg/dL AH ADM SS Urea nitrogen/Creatinine [Mass ratio] 13.7 ratio Invalid Interpretation Code 10.0 - 22.0 ratio AH ADM SS WBC (Bld) [#/Vol] 4.30 103/mcL Invalid Interpretation Code 4.50 - 10.80 10^3/mcL AH Remisol SS LABORATORYOrdered By: Oswaldo Powell on 05-28-2021 aPTT Coag (PPP) [Time] 27.3 s Invalid Interpretation Code 25.0 - 35.0 seconds AH Auto Coag SS Fibrin D-dimer DDU (PPP) [Mass/Vol] ng/mL D-DU Invalid Interpretation Code 0 - 230 ng/mL D-DU AH Auto Coag SS Comment on above: Result Comment: Resu lts reported in D-DU ng/ml. Negative for D-dimer. DVT/PE is highly unlikely. Note: False negative results may be seen in patients on anticoagulant therapy. Fibrinogen Coag (PPP) [Mass/Vol] 377 mg/dL Invalid Interpretation Code 250 - 550 mg/dL AH Auto Coag SS Heparin dose (APTT) Unknown (05/28/21 4:47 AM) Invalid Interpretation Code AH Auto Coag SS INR Coag (PPP) [Relative time] 0.9 {INR} Invalid Interpretation Code AH Auto Coag SS PT Coag (PPP) [Time] 10.8 s Invalid Interpretation Code 9.0 - 14.8 seconds AH Auto Coag SS LABORATORYOrdered By: Melanie Corona on 05-28-2021 Hep A IgM Ab Non-Reactive (05/28/21 4:47 AM) Invalid Interpretation Code Non-Reacti ve AH ADM SS Hep A IgM Ab Int No serological evide nce of a current Hepatitis A infection. Invalid Interpretation Code Chemistry S Hep B Core IgM Ab Non-Reactive (05/28/21 4:47 AM) Invalid Interpretation Code Non-Reacti ve AH ADM SS Hep B Core IgM Ab Int Samples with a bigg ue < 0.80 Index are considered nonreactive (negative) for IgM antibodies to hepatitis B core antigen. Invalid Interpretation Code Chemistry S Hep B Surf Ag Non-Reactive (05/28/21 4:47 AM) Invalid Interpretation Code Non-Reacti ve AH ADM SS Hep C Ab Non-Reactive (05/28/21 4:47 AM) Invalid Interpretation Code Non-Reacti ve ADM SS Hep C Ab Int Nonreactive: Samples with a value < 0.80 are considered nonreactive (negative) for antibodies to HCV.A negative test result does not exclude the possibility of exposure to or infection with HCV. HCV antibodies may be undetectable in some stages of the infection and in some clinical conditions. Invalid Interpretation Code Chemistry S LABORATORYOrdered By: SYSTEM SYSTEM on 05-27-2021 Albumin BCP dye [Mass/Vol] 2.1 G/dL Invalid Interpretation Code 3.2 - 4.8 G/dL ADM SS Albumin/Globulin [Mass ratio] 0.7 {ratio} Invalid Interpretation Code 0.9 - 1.6 ratio AH ADM SS ALP [Catalytic activity/Vol] 160 U/L Invalid Interpretation Code 38 - 126 U/L ADM SS ALT No additional P-5'-P [Catalytic activity/Vol] 300 U/L Invalid Interpretation Code 12 - 55 U/L ADM SS AST [Catalytic activity/Vol] 259 U/L Invalid Interpretation Code 8 - 34 U/L ADM SS Basophils (Bld) [#/Vol] 0.00 103/mcL Invalid Interpretation Code 0.00 - 0.27 10^3/mcL Remisol SS Basophils/100 WBC (Bld) 0.2 % Invalid Interpretation Code 0.0 - 2.5 % Remisol SS Bilirubin [Mass/Vol] 0.90 mg/dL Invalid Interpretation Code 0.20 - 1.20 mg/dL AH ADM SS Calcium [Mass/Vol] 8.3 mg/dL Invalid Interpretation Code 8.7 - 10.4 mg/dL AH ADM SS Chloride [Moles/Vol] 109 mmol/L Invalid Interpretation Code 98 - 110 mEq/L AH ADM SS CO2 [Moles/Vol] 29 mmol/L Invalid Interpretation Code 22 - 32 mEq/L AH ADM SS Creatinine [Mass/Vol] 0.96 mg/dL Invalid Interpretation Code 0.60 - 1.40 mg/dL AH ADM SS CRP [Mass/Vol] 1.0 mg/dL Invalid Interpretation Code 0.0 - 1.0 mg/dL AH ADM SS Electrolyte Balance 3.0 mEq/L Invalid Interpretation Code 4.0 - 15.0 mEq/L AH ADM SS Eosinophils (Bld) [#/Vol] 0.00 103/mcL Invalid Interpretation Code 0.00 - 0.65 10^3/mcL AH Remisol SS Eosinophils/100 WBC (Bld) 0.1 % Invalid Interpretation Code 0.0 - 6.0 % AH Remisol SS Erythrocyte distribution width (RBC) [Ratio] 15.1 % Invalid Interpretation Code 11.5 - 15.5 % Remisol SS Ferritin [Mass/Vol] 753.8 ng/mL Invalid Interpretation Code 26.0 - 388.0 ng/mL AH ADM SS GFR/1.73 sq M.predicted among blacks MDRD (S/P/Bld) [Vol rate/Area] ml/min/1.73sqm Invalid Interpretation Code Chemistry S GFR/1.73 sq M.predicted among non-blacks MDRD (S/P/Bld) [Vol rate/Area] ml/min/1.73sqm Invalid Interpretation Code Chemistry S Globulin 3.2 G/dL Invalid Interpretation Code 1.5 - 3.8 G/dL ADM SS Glucose [Mass/Vol] 102 mg/dL Invalid Interpretation Code 70 - 110 mg/dL AH ADM SS Hematocrit (Bld) [Volume fraction] 33.1 % Invalid Interpretation Code 40.0 - 52.0 % AH Remisol SS Hemoglobin (Bld) [Mass/Vol] 11.2 G/dL Invalid Interpretation Code 13.0 - 17.5 G/dL AH Remisol SS Lymphocytes (Bld) [#/Vol] 1.00 103/mcL Invalid Interpretation Code 0.90 - 4.32 10^3/mcL AH Remisol SS Lymphocytes/100 WBC (Bld) 27.1 % Invalid Interpretation Code 20.0 - 40.0 % AH Remisol SS Magnesium [Mass/Vol] 2.0 mg/dL Invalid Interpretation Code 1.6 - 2.4 mg/dL AH ADM SS MCH (RBC) [Entitic mass] 27.6 pg Invalid Interpretation Code 27.0 - 33.0 pg AH Remisol SS MCHC (RBC) [Mass/Vol] 33.8 G/dL Invalid Interpretation Code 32.0 - 36.0 G/dL AH Remisol SS MCV (RBC) [Entitic vol] 81.6 fL Invalid Interpretation Code 81.0 - 100.0 fL AH Remisol SS Monocytes (Bld) [#/Vol] 0.60 103/mcL Invalid Interpretation Code 0.09 - 1.40 10^3/mcL AH Remisol SS Monocytes/100 WBC (Bld) 15.6 % Invalid Interpretation Code 2.0 - 13.0 % AH Remisol SS Neutrophils (Bld) [#/Vol] 2.00 103/mcL Invalid Interpretation Code 2.25 - 8.10 10^3/mcL AH Remisol SS Neutrophils/100 WBC (Bld) 57.0 % Invalid Interpretation Code 50.0 - 75.0 % AH Remisol SS Platelet mean volume (Bld) [Entitic vol] 7.6 fL Invalid Interpretation Code 6.4 - 10.5 fL AH Remisol SS Platelets (Bld) [#/Vol] 231 103/mcL Invalid Interpretation Code 150 - 450 10^3/mcL AH Remisol SS Potassium [Moles/Vol] 3.5 mmol/L Invalid Interpretation Code 3.5 - 5.0 mEq/L AH ADM SS Protein [Mass/Vol] 5.3 G/dL Invalid Interpretation Code 5.7 - 8.2 G/dL AH ADM SS RBC (Bld) [#/Vol] 4.06 106/mcL Invalid Interpretation Code 4.50 - 6.00 10^6/mcL AH Remisol SS Sodium [Moles/Vol] 141 mmol/L Invalid Interpretation Code 136 - 145 mEq/L AH ADM SS Troponin I.cardiac DL <= 0.01 ng/mL [Mass/Vol] 2.99 ng/L Invalid Interpretation Code 0.00 - 54.00 ng/L AH ADM SS Urea nitrogen [Mass/Vol] 13.0 mg/dL Invalid Interpretation Code 8.0 - 22.0 mg/dL AH ADM SS Urea nitrogen/Creatinine [Mass ratio] 13.5 ratio Invalid Interpretation Code 10.0 - 22.0 ratio AH ADM SS WBC (Bld) [#/Vol] 3.60 103/mcL Invalid Interpretation Code 4.50 - 10.80 10^3/mcL Remisol SS LABORATORYOrdered By: Marisol Morton on 05-27-2021 aPTT Coag (PPP) [Time] 28.5 s Invalid Interpretation Code 25.0 - 35.0 seconds Auto Coag SS Fibrin D-dimer DDU (PPP) [Mass/Vol] ng/mL D-DU Invalid Interpretation Code 0 - 230 ng/mL D-DU Auto Coag SS Comment on above: Result Comment: Resu lts reported in D-DU ng/ml. Negative for D-dimer. DVT/PE is highly unlikely. Note: False negative results may be seen in patients on anticoagulant therapy. Fibrinogen Coag (PPP) [Mass/Vol] 401 mg/dL Invalid Interpretation Code 250 - 550 mg/dL Auto Coag SS Heparin dose (APTT) Unknown (05/27/21 4:33 AM) Invalid Interpretation Code Auto Coag SS INR Coag (PPP) [Relative time] 0.9 {INR} Invalid Interpretation Code Auto Coag SS PT Coag (PPP) [Time] 11.0 s Invalid Interpretation Code 9.0 - 14.8 seconds Auto Coag SS LABORATORYOrdered By: Neftali Stephenson on 05-26-2021 aPTT Coag (PPP) [Time] 35.7 s Invalid Interpretation Code 25.0 - 35.0 seconds Auto Coag SS Fibrin D-dimer DDU (PPP) [Mass/Vol] ng/mL D-DU Invalid Interpretation Code 0 - 230 ng/mL D-DU Auto Coag SS Comment on above: Result Comment: Resu lts reported in D-DU ng/ml. Negative for D-dimer. DVT/PE is highly unlikely. Note: False negative results may be seen in patients on anticoagulant therapy. Fibrinogen Coag (PPP) [Mass/Vol] 485 mg/dL Invalid Interpretation Code 250 - 550 mg/dL Auto Coag SS Heparin dose (APTT) Unknown (05/26/21 12:35 PM) Invalid Interpretation Code AH Auto Coag SS INR Coag (PPP) [Relative time] 1.0 {INR} Invalid Interpretation Code AH Auto Coag SS PT Coag (PPP) [Time] 11.4 s Invalid Interpretation Code 9.0 - 14.8 seconds Auto Coag SS LABORATORYOrdered By: SYSTEM SYSTEM on 05-26-2021 Band form neutrophils/100 WBC (Bld) 1.0 % Invalid Interpretation Code 0.0 - 5.0 % AH Remisol SS Basophils (Bld) [#/Vol] 0.00 103/mcL Invalid Interpretation Code 0.00 - 0.27 10^3/mcL AH Remisol SS Basophils/100 WBC (Bld) 0.0 % Invalid Interpretation Code 0.0 - 2.5 % Remisol SS Cells Counted Total (Unsp spec) [#] 100 Invalid Interpretation Code Remisol SS CK [Catalytic activity/Vol] 173 U/L Invalid Interpretation Code 7 - 185 U/L AH ADM SS Comment on above: Result Comment: Spec imen slightly hemolyzed. CRP [Mass/Vol] 1.2 mg/dL Invalid Interpretation Code 0.0 - 1.0 mg/dL ADM SS Eosinophils (Bld) [#/Vol] 0.00 103/mcL Invalid Interpretation Code 0.00 - 0.65 10^3/mcL Remisol SS Eosinophils/100 WBC (Bld) 0.0 % Invalid Interpretation Code 0.0 - 6.0 % AH Remisol SS Erythrocyte distribution width (RBC) [Ratio] 15.3 % Invalid Interpretation Code 11.5 - 15.5 % AH Remisol SS Ferritin [Mass/Vol] 706.8 ng/mL Invalid Interpretation Code 26.0 - 388.0 ng/mL AH ADM SS Hematocrit (Bld) [Volume fraction] 35.6 % Invalid Interpretation Code 40.0 - 52.0 % AH Remisol SS Hemoglobin (Bld) [Mass/Vol] 12.0 G/dL Invalid Interpretation Code 13.0 - 17.5 G/dL AH Remisol SS LDH Lactate to pyruvate reaction [Catalytic activity/Vol] 380 1 Invalid Interpretation Code 120 - 246 U/L AH ADM SS Lipase [Catalytic activity/Vol] 24 U/L Invalid Interpretation Code 12 - 53 U/L AH ADM SS Lymphocytes (Bld) [#/Vol] 1.18 103/mcL Invalid Interpretation Code 0.90 - 4.32 10^3/mcL AH Remisol SS Lymphocytes/100 WBC (Bld) 28.0 % Invalid Interpretation Code 20.0 - 40.0 % AH Remisol SS Magnesium [Mass/Vol] 1.9 mg/dL Invalid Interpretation Code 1.6 - 2.4 mg/dL AH ADM SS MCH (RBC) [Entitic mass] 27.9 pg Invalid Interpretation Code 27.0 - 33.0 pg AH Remisol SS MCHC (RBC) [Mass/Vol] 33.7 G/dL Invalid Interpretation Code 32.0 - 36.0 G/dL AH Remisol SS MCV (RBC) [Entitic vol] 82.9 fL Invalid Interpretation Code 81.0 - 100.0 fL AH Remisol SS Monocytes (Bld) [#/Vol] 0.55 103/mcL Invalid Interpretation Code 0.09 - 1.40 10^3/mcL AH Remisol SS Monocytes/100 WBC (Bld) 13.0 % Invalid Interpretation Code 2.0 - 13.0 % AH Remisol SS Neutrophils (Bld) [#/Vol] 2.48 103/mcL Invalid Interpretation Code 2.25 - 8.10 10^3/mcL AH Remisol SS Neutrophils/100 WBC (Bld) 58.0 % Invalid Interpretation Code 50.0 - 75.0 % AH Remisol SS Platelet mean volume (Bld) [Entitic vol] 8.2 fL Invalid Interpretation Code 6.4 - 10.5 fL AH Remisol SS Platelets (Bld) [#/Vol] 189 103/mcL Invalid Interpretation Code 150 - 450 10^3/mcL AH Remisol SS Platelets LM Ql (Bld) Normal *NA* (05/26/21 9:59 AM) Invalid Interpretation Code AH Remisol SS RBC (Bld) [#/Vol] 4.30 106/mcL Invalid Interpretation Code 4.50 - 6.00 10^6/mcL AH Remisol SS RBC morphology finding Nom (Bld) Normal *NA* (05/26/21 9:59 AM) Invalid Interpretation Code AH Remisol SS Troponin I.cardiac DL <= 0.01 ng/mL [Mass/Vol] 4.75 ng/L Invalid Interpretation Code 0.00 - 54.00 ng/L AH ADM SS TSH Qn 1.525 mIU/mL Invalid Interpretation Code 0.550 - 4.780 mIU/mL AH ADM SS WBC (Bld) [#/Vol] 4.20 103/mcL Invalid Interpretation Code 4.50 - 10.80 10^3/mcL AH Remisol SS LABORATORYOrdered By: Froilan Qureshi on 05-26-2021 ESR 15 minute reading (Bld) [Velocity] 25 mm/hr Invalid Interpretation Code 0 - 15 mm/hr AH Manual Heme SS LABORATORYOrdered By: Saul Josue on 05-25-2021 Appearance (U) Clear (05/25/21 4:37 PM) Invalid Interpretation Code Clear AO Auto Urine SS Bilirubin Ql (U) Negative (05/25/21 4:37 PM) Invalid Interpretation Code Negative AO Auto Urine SS Color (U) Yellow (05/25/21 4:37 PM) Invalid Interpretation Code AO Auto Urine SS Glucose Test strip (U) [Mass/Vol] Negative Invalid Interpretation Code Negativemg /dL AO Auto Urine SS Hemoglobin Auto test strip (U) [Mass/Vol] Negative (05/25/21 4:37 PM) Invalid Interpretation Code Negative AO Auto Urine SS Ketones Ql (U) 15 mg/dL Invalid Interpretation Code Negativemg /dL AO Auto Urine SS UA Leuk Est Negative (05/25/21 4:37 PM) Invalid Interpretation Code Negative AO Auto Urine SS UA Nitrite Negative (05/25/21 4:37 PM) Invalid Interpretation Code Negative AO Auto Urine SS UA pH 5.5 (05/25/21 4:37 PM) Invalid Interpretation Code 5.0 - 8.0 AO Auto Urine SS UA Protein Negative Invalid Interpretation Code Negativemg /dL AO Auto Urine SS UA Spec Grav 1.010 *ABN* (05/25/21 4:37 PM) Invalid Interpretation Code 1.015-1.02 5 AO Auto Urine SS UA Specimen Type Clean Catch (05/25/21 4:37 PM) Invalid Interpretation Code AO Auto Urine SS UA Urobilinogen 1.0 E.U./dL Invalid Interpretation Code 0.2-1.0E.U ./dL AO Auto Urine SS LABORATORYOrdered By: Mara Corrales on 05-25-2021 Albumin BCP dye [Mass/Vol] 2.1 G/dL Invalid Interpretation Code 3.5 - 5.0 G/dL AO ADM SS Albumin/Globulin [Mass ratio] 0.6 {ratio} Invalid Interpretation Code 1.1 - 2.5 ratio AO ADM SS ALP [Catalytic activity/Vol] 150 U/L Invalid Interpretation Code 40 - 135 U/L AO ADM SS ALT With P-5'-P [Catalytic activity/Vol] 254 U/L Invalid Interpretation Code 16 - 63 U/L AO ADM SS AST With P-5'-P [Catalytic activity/Vol] 260 U/L Invalid Interpretation Code 10 - 40 U/L AO ADM SS Bilirubin [Mass/Vol] 0.8 mg/dL Invalid Interpretation Code 0.2 - 1.0 mg/dL AO ADM SS Calcium [Mass/Vol] 8.1 mg/dL Invalid Interpretation Code 8.4 - 10.2 mg/dL AO ADM SS Chloride [Moles/Vol] 101 mmol/L Invalid Interpretation Code 98 - 107 mmol/L AO ADM SS CO2 [Moles/Vol] 28 mmol/L Invalid Interpretation Code 22 - 29 mmol/L AO ADM SS Creatinine [Mass/Vol] 1.22 mg/dL Invalid Interpretation Code 0.70 - 1.30 mg/dL AO ADM SS Electrolyte Balance 10.0 mEq/L Invalid Interpretation Code AO ADM SS Globulin 3.5 G/dL Invalid Interpretation Code AO ADM SS Glucose [Mass/Vol] 126 mg/dL Invalid Interpretation Code 70 - 105 mg/dL AO ADM SS Lipase [Catalytic activity/Vol] 113 U/L Invalid Interpretation Code 73 - 393 U/L AO ADM SS Potassium [Moles/Vol] 3.7 mmol/L Invalid Interpretation Code 3.5 - 5.1 mmol/L AO ADM SS Protein [Mass/Vol] 5.6 G/dL Invalid Interpretation Code 6.4 - 8.2 G/dL AO ADM SS Sodium [Moles/Vol] 139 mmol/L Invalid Interpretation Code 136 - 145 mmol/L AO ADM SS Troponin I.cardiac DL <= 0.01 ng/mL [Mass/Vol] 13.7 ng/L Invalid Interpretation Code 0.0 - 76.2 ng/L AO ADM SS Urea nitrogen [Mass/Vol] 12 mg/dL Invalid Interpretation Code 7 - 18 mg/dL AO ADM SS Urea nitrogen/Creatinine [Mass ratio] 10 ratio Invalid Interpretation Code 7 - 27 ratio AO ADM SS LABORATORYOrdered By: Clara Jaime on 05-25-2021 Basophil, Absolute 0.00 103/mcL Invalid Interpretation Code 0.00 - 0.19 10^3/mcL AO Auto Heme SS Basophils/100 WBC (Bld) 0.3 % Invalid Interpretation Code 0.0 - 2.5 % AO Auto Heme SS Eosinophil, Absolute 0.00 103/mcL Invalid Interpretation Code 0.00 - 0.40 10^3/mcL AO Auto Heme SS Eosinophils/100 WBC (Bld) 0.2 % Invalid Interpretation Code 0.0 - 7.0 % AO Auto Heme SS Erythrocyte distribution width (RBC) [Ratio] 15.2 % Invalid Interpretation Code 11.5 - 14.5 % AO Auto Heme SS Hematocrit (Bld) [Volume fraction] 34.7 % Invalid Interpretation Code 42.0 - 52.0 % AO Auto Heme SS Hemoglobin (Bld) [Mass/Vol] 11.8 G/dL Invalid Interpretation Code 14.0 - 18.0 G/dL AO Auto Heme SS Lymphocyte, Absolute 0.40 103/mcL Invalid Interpretation Code 0.77 - 3.85 10^3/mcL AO Auto Heme SS Lymphocytes/100 WBC (Bld) 11.4 % Invalid Interpretation Code 10.0 - 50.0 % AO Auto Heme SS MCH (RBC) [Entitic mass] 27.7 pg Invalid Interpretation Code 27.0 - 31.2 pg AO Auto Heme SS MCHC (RBC) [Mass/Vol] 34.1 G/dL Invalid Interpretation Code 31.8 - 35.4 G/dL AO Auto Heme SS MCV (RBC) [Entitic vol] 81.3 fL Invalid Interpretation Code 80.0 - 94.0 fL AO Auto Heme SS Monocyte, Absolute 0.30 103/mcL Invalid Interpretation Code 0.15 - 1.00 10^3/mcL AO Auto Heme SS Monocytes/100 WBC (Bld) 8.7 % Invalid Interpretation Code 1.7 - 13.0 % AO Auto Heme SS Neutrophil, Absolute 3.00 103/mcL Invalid Interpretation Code 2.85 - 6.16 10^3/mcL AO Auto Heme SS Neutrophils/100 WBC (Bld) 79.4 % Invalid Interpretation Code 37.0 - 80.0 % AO Auto Heme SS Platelet mean volume (Bld) [Entitic vol] 7.8 fL Invalid Interpretation Code 7.4 - 10.4 fL AO Auto Heme SS Platelets (Bld) [#/Vol] 166 103/mcL Invalid Interpretation Code 130 - 400 10^3/mcL AO Auto Heme SS RBC (Bld) [#/Vol] 4.27 106/mcL Invalid Interpretation Code 4.04 - 6.13 10^6/mcL AO Auto Heme SS WBC (Bld) [#/Vol] 3.80 103/mcL Invalid Interpretation Code 4.60 - 10.80 10^3/mcL AO Auto Heme SS LABORATORYOrdered By: SYSTEM SYSTEM on 05-25-2021 GFR 77 ml/min/1.73sqm Invalid Interpretation Code AO Chemistry S GFR Non- 63 ml/min/1.73sqm Invalid Interpretation Code AO Chemistry S CBCon 10-08-2019 Erythrocyte distribution width (RBC) [Entitic vol] 15.9 % High 11.6 - 14.8 % [facility] Hematocrit (Bld) [Volume fraction] 42.7 % 41 - 53 % [facility] Hemoglobin (Bld) [Mass/Vol] 13.9 g/dL 13.5 - 17.5 g/dL [facility] Interpretation and review of laboratory results Abnormal [facility] MCH (RBC) [Entitic mass] 28.3 pg 26 - 34 pg [facility] MCHC (RBC) [Mass/Vol] 32.6 g/dL 31 - 3 7 g/dL [facility] MCV (RBC) [Entitic vol] 86.8 fL 80 - 100 fL [facility] Nucleated RBC (Bld) [#/Vol] 0.00 10*3/uL [facility] Nucleated RBC/100 WBC (Bld) [Ratio] 0.0 % [facility] Platelet mean volume (Bld) [Entitic vol] 9.2 fL 9 - 15.5 fL [facility] Platelets (Bld) [#/Vol] 259 10*3/uL [facility] RBC (Bld) [#/Vol] 4.92 10*6/uL [facility] WBC (Bld) [#/Vol] 9.10 10*3/uL [facility] Renal Function Panelon 10-07 Albumin [Mass/Vol] 3.2 g/dL 3.2 - 5.2 g/dL [facility] Anion gap [Moles/Vol] 15 mmol/L 10 - 2 0 mmol/L [facility] Calcium [Mass/Vol] 9.7 mg/dL 8.4 - 10. 2 mg/dL [facility] Chloride [Moles/Vol] 104 mmol/L 98 - 10 8 mmol/L [facility] Creatinine [Mass/Vol] 0.89 mg/dL 0.50 - 1.30 [facility] GFR/1.73 sq M.predicted CKD-EPI (S/P/Bld) [Vol rate/Area] 103 >=60 mL/min/1.7 3 m2 [facility] Glucose [Mass/Vol] 147 mg/dL High 65 - 99 mg/dL [facility] HCO3 [Moles/Vol] 26 mmol/L 21 - 32 mmol/L [facility] Interpretation and review of laboratory results Abnormal [facility] Phosphate [Mass/Vol] 4.0 mg/dL 2.7 - 4 .5 mg/dL [facility] Potassium [Moles/Vol] 4.1 mmol/L 3.5 - 5.1 mmol/L [facility] Sodium [Moles/Vol] 141 mmol/L 135 - 145 mmol/L [facility] Urea nitrogen [Mass/Vol] 17 mg/dL 8 - 25 mg/dL [facility] Urea nitrogen/Creatinine [Mass ratio] 19.1 mg/mg [facility] The eGFR should be u sed for monitoring renal function only and not for medication dosing. [facility] CBCon 10-01-2019 Erythrocyte distribution width (RBC) [Entitic vol] 16.2 % High 11.6 - 14.8 % [facility] Hematocrit (Bld) [Volume fraction] 40.3 % Low 41 - 53 % [facility] Hemoglobin (Bld) [Mass/Vol] 13.1 g/dL Low 13.5 - 17.5 g/dL [facility] Interpretation and review of laboratory results Abnormal [facility] MCH (RBC) [Entitic mass] 28.5 pg 26 - 34 pg [facility] MCHC (RBC) [Mass/Vol] 32.5 g/dL 31 - 3 7 g/dL [facility] MCV (RBC) [Entitic vol] 87.6 fL 80 - 100 fL [facility] Nucleated RBC (Bld) [#/Vol] 0.00 10*3/uL [facility] Nucleated RBC/100 WBC (Bld) [Ratio] 0.0 % [facility] Platelet mean volume (Bld) [Entitic vol] 9.3 fL 9 - 15.5 fL [facility] Platelets (Bld) [#/Vol] 261 10*3/uL [facility] RBC (Bld) [#/Vol] 4.60 10*6/uL [facility] WBC (Bld) [#/Vol] 8.17 10*3/uL [facility] Renal Function Panelon 09-30 Albumin [Mass/Vol] 3.1 g/dL Low 3.2 - 5.2 g/dL [facility] Anion gap [Moles/Vol] 17 mmol/L 10 - 2 0 mmol/L [facility] Calcium [Mass/Vol] 8.9 mg/dL 8.4 - 10. 2 mg/dL [facility] Chloride [Moles/Vol] 104 mmol/L 98 - 10 8 mmol/L [facility] Creatinine [Mass/Vol] 0.98 mg/dL 0.50 - 1.30 [facility] GFR/1.73 sq M.predicted CKD-EPI (S/P/Bld) [Vol rate/Area] 92 >=60 mL/min/1.7 3 m2 [facility] Glucose [Mass/Vol] 196 mg/dL High 65 - 99 mg/dL [facility] HCO3 [Moles/Vol] 26 mmol/L 21 - 32 mmol/L [facility] Interpretation and review of laboratory results Abnormal [facility] Phosphate [Mass/Vol] 4.1 mg/dL 2.7 - 4 .5 mg/dL [facility] Potassium [Moles/Vol] 4.0 mmol/L 3.5 - 5.1 mmol/L [facility] Sodium [Moles/Vol] 143 mmol/L 135 - 145 mmol/L [facility] Urea nitrogen [Mass/Vol] 19 mg/dL 8 - 25 mg/dL [facility] Urea nitrogen/Creatinine [Mass ratio] 19.4 mg/mg [facility] The eGFR should be u sed for monitoring renal function only and not for medication dosing. [facility] CBCon 09-24-2019 Erythrocyte distribution width (RBC) [Entitic vol] 16.4 % High 11.6 - 14.8 % [facility] Hematocrit (Bld) [Volume fraction] 41.2 % 41 - 53 % [facility] Hemoglobin (Bld) [Mass/Vol] 13.5 g/dL 13.5 - 17.5 g/dL [facility] Interpretation and review of laboratory results Abnormal [facility] MCH (RBC) [Entitic mass] 28.6 pg 26 - 34 pg [facility] MCHC (RBC) [Mass/Vol] 32.8 g/dL 31 - 3 7 g/dL [facility] MCV (RBC) [Entitic vol] 87.3 fL 80 - 100 fL [facility] Nucleated RBC (Bld) [#/Vol] 0.00 10*3/uL [facility] Nucleated RBC/100 WBC (Bld) [Ratio] 0.0 % [facility] Platelet mean volume (Bld) [Entitic vol] 8.8 fL Low 9 - 15.5 fL [facility] Platelets (Bld) [#/Vol] 288 10*3/uL [facility] RBC (Bld) [#/Vol] 4.72 10*6/uL [facility] WBC (Bld) [#/Vol] 9.29 10*3/uL [facility] Renal Function Panelon 09-23 Albumin [Mass/Vol] 3.3 g/dL 3.2 - 5.2 g/dL [facility] Anion gap [Moles/Vol] 15 mmol/L 10 - 2 0 mmol/L [facility] Calcium [Mass/Vol] 9.7 mg/dL 8.4 - 10. 2 mg/dL [facility] Chloride [Moles/Vol] 101 mmol/L 98 - 10 8 mmol/L [facility] Creatinine [Mass/Vol] 0.82 mg/dL 0.50 - 1.30 [facility] GFR/1.73 sq M.predicted CKD-EPI (S/P/Bld) [Vol rate/Area] 106 >=60 mL/min/1.7 3 m2 [facility] Glucose [Mass/Vol] 160 mg/dL High 65 - 99 mg/dL [facility] HCO3 [Moles/Vol] 29 mmol/L 21 - 32 mmol/L [facility] Interpretation and review of laboratory results Abnormal [facility] Phosphate [Mass/Vol] 4.2 mg/dL 2.7 - 4 .5 mg/dL [facility] Potassium [Moles/Vol] 3.8 mmol/L 3.5 - 5.1 mmol/L [facility] Sodium [Moles/Vol] 141 mmol/L 135 - 145 mmol/L [facility] Urea nitrogen [Mass/Vol] 20 mg/dL 8 - 25 mg/dL [facility] Urea nitrogen/Creatinine [Mass ratio] 24.4 mg/mg High [facility] The eGFR should be u sed for monitoring renal function only and not for medication dosing. [facility] CBCon 09-17-2019 Erythrocyte distribution width (RBC) [Entitic vol] 16.3 % High 11.6 - 14.8 % [facility] Hematocrit (Bld) [Volume fraction] 40.6 % Low 41 - 53 % [facility] Hemoglobin (Bld) [Mass/Vol] 12.6 g/dL Low 13.5 - 17.5 g/dL [facility] MCH (RBC) [Entitic mass] 27.5 pg 26 - 34 pg [facility] MCHC (RBC) [Mass/Vol] 31.0 g/dL 31 - 3 7 g/dL [facility] MCV (RBC) [Entitic vol] 88.6 fL 80 - 100 fL [facility] Nucleated RBC (Bld) [#/Vol] 0.00 10*3/uL [facility] Nucleated RBC/100 WBC (Bld) [Ratio] 0.0 % [facility] Platelet mean volume (Bld) [Entitic vol] 8.9 fL Low 9 - 15.5 fL [facility] Platelets (Bld) [#/Vol] 282 10*3/uL [facility] RBC (Bld) [#/Vol] 4.58 10*6/uL [facility] ealth WBC (Bld) [#/Vol] 9.62 10*3/uL [facility] ealth Otheron 09-17-2019 Interpretation and review of laboratory results Abnormal [facility] Renal Function Panelon 09-16 Albumin [Mass/Vol] 3.1 g/dL Low 3.2 - 5.2 g/dL [facility] Anion gap [Moles/Vol] 15 mmol/L 10 - 2 0 mmol/L [facility] Calcium [Mass/Vol] 9.3 mg/dL 8.4 - 10. 2 mg/dL [facility] Chloride [Moles/Vol] 102 mmol/L 98 - 10 8 mmol/L [facility] Creatinine [Mass/Vol] 0.86 mg/dL 0.50 - 1.30 [facility] GFR/1.73 sq M.predicted CKD-EPI (S/P/Bld) [Vol rate/Area] 104 >=60 mL/min/1.7 3 m2 [facility] Glucose [Mass/Vol] 117 mg/dL High 65 - 99 mg/dL [facility] HCO3 [Moles/Vol] 29 mmol/L 21 - 32 mmol/L [facility] Phosphate [Mass/Vol] 4.1 mg/dL 2.7 - 4 .5 mg/dL [facility] Potassium [Moles/Vol] 3.9 mmol/L 3.5 - 5.1 mmol/L [facility] Sodium [Moles/Vol] 142 mmol/L 135 - 145 mmol/L [facility] Urea nitrogen [Mass/Vol] 18 mg/dL 8 - 25 mg/dL [facility] Urea nitrogen/Creatinine [Mass ratio] 20.9 mg/mg High [facility] The eGFR should be u sed for monitoring renal function only and not for medication dosing. [facility] CBCon 09-10-2019 Erythrocyte distribution width (RBC) [Entitic vol] 16.1 % High 11.6 - 14.8 % [facility] Hematocrit (Bld) [Volume fraction] 38.4 % Low 41 - 53 % [facility] Hemoglobin (Bld) [Mass/Vol] 12.5 g/dL Low 13.5 - 17.5 g/dL [facility] Interpretation and review of laboratory results Abnormal [facility] MCH (RBC) [Entitic mass] 28.1 pg 26 - 34 pg [facility] MCHC (RBC) [Mass/Vol] 32.6 g/dL 31 - 3 7 g/dL [facility] MCV (RBC) [Entitic vol] 86.3 fL 80 - 100 fL [facility] Nucleated RBC (Bld) [#/Vol] 0.00 10*3/uL [facility] Nucleated RBC/100 WBC (Bld) [Ratio] 0.0 % [facility] Platelet mean volume (Bld) [Entitic vol] 9.0 fL 9 - 15.5 fL [facility] Platelets (Bld) [#/Vol] 237 10*3/uL [facility] RBC (Bld) [#/Vol] 4.45 10*6/uL Low [facility] eah WBC (Bld) [#/Vol] 10.33 10*3/uL [facility] Renal Function Panelon 09-09 Albumin [Mass/Vol] 3.0 g/dL Low 3.2 - 5.2 g/dL [facility] Anion gap [Moles/Vol] 14 mmol/L 10 - 2 0 mmol/L [facility] Calcium [Mass/Vol] 9.2 mg/dL 8.4 - 10. 2 mg/dL [facility] Chloride [Moles/Vol] 101 mmol/L 98 - 10 8 mmol/L [facility] Creatinine [Mass/Vol] 0.74 mg/dL 0.50 - 1.30 [facility] GFR/1.73 sq M.predicted CKD-EPI (S/P/Bld) [Vol rate/Area] 111 >=60 mL/min/1.7 3 m2 [facility] Glucose [Mass/Vol] 127 mg/dL High 65 - 99 mg/dL [facility] HCO3 [Moles/Vol] 30 mmol/L 21 - 32 mmol/L [facility] Interpretation and review of laboratory results Abnormal [facility] Phosphate [Mass/Vol] 4.3 mg/dL 2.7 - 4 .5 mg/dL [facility] Potassium [Moles/Vol] 4.2 mmol/L 3.5 - 5.1 mmol/L [facility] Sodium [Moles/Vol] 141 mmol/L 135 - 145 mmol/L [facility] Urea nitrogen [Mass/Vol] 16 mg/dL 8 - 25 mg/dL [facility] Urea nitrogen/Creatinine [Mass ratio] 21.6 mg/mg High [facility] The eGFR should be u sed for monitoring renal function only and not for medication dosing. [facility] CBC WITH AUTO DIFFERENTIALon 09-03-2019 Basophils (Bld) [#/Vol] 0.05 10*3/uL [facility] Basophils/100 WBC (Bld) 0.5 % [facility] Eosinophils (Bld) [#/Vol] 0.24 10*3/uL [facility] Eosinophils/100 WBC (Bld) 2.5 % [facility] Erythrocyte distribution width (RBC) [Entitic vol] 16.2 % High 11.6 - 14.8 % [facility] Hematocrit (Bld) [Volume fraction] 45.5 % 41 - 53 % [facility] Hemoglobin (Bld) [Mass/Vol] 14.6 g/dL 13.5 - 17.5 g/dL [facility] Immature granulocytes (Bld) [#/Vol] 0.03 10*3/uL [facility] Immature granulocytes/100 WBC (Bld) 0.30 % [facility] Comment on above: The IG parameter is the percentage of metamyelocytes, myelocytes, and promyelocytes. Interpretation and review of laboratory results Abnormal [facility] Lymphocytes (Bld) [#/Vol] 1.92 10*3/uL [facility] Lymphocytes/100 WBC (Bld) 19.9 % [facility] MCH (RBC) [Entitic mass] 27.9 pg 26 - 34 pg [facility] MCHC (RBC) [Mass/Vol] 32.1 g/dL 31 - 3 7 g/dL [facility] MCV (RBC) [Entitic vol] 86.8 fL 80 - 100 fL [facility] Monocytes (Bld) [#/Vol] 0.47 10*3/uL [facility] Monocytes/100 WBC (Bld) 4.9 % [facility] Neutrophils (Bld) [#/Vol] 6.96 10*3/uL [facility] Neutrophils/100 WBC (Bld) 71.9 % [facility] Nucleated RBC (Bld) [#/Vol] 0.00 10*3/uL [facility] Nucleated RBC/100 WBC (Bld) [Ratio] 0.0 % [facility] Platelet mean volume (Bld) [Entitic vol] 8.9 fL Low 9 - 15.5 fL [facility] Platelets (Bld) [#/Vol] 239 10*3/uL [facility] RBC (Bld) [#/Vol] 5.24 10*6/uL [facility]alth WBC (Bld) [#/Vol] 9.67 10*3/uL [facility] CPK NO MBon 09-03-2019 CK [Catalytic activity/Vol] 40 U/L Low 60 - 225 U/L [facility] Interpretation and review of laboratory results Abnormal [facility] XR KNEE LEFT 2 VIEWS (STANDA RD)on 08-28-2019 EXAMINATION: XR KNEE LEFT 2 VIEWS (STANDARD) HISTORY: ORDERING SYSTEM PROVIDED HISTORY: Pain, edema, TECHNOLOGIST PROVIDED HISTORY: Illness/Other Reason for exam: Pain, edema Cancer History: unk Surgery, RadiationHistory: unk Encounter Type: Initial Additional signs and symptoms: Knee distal, posterior, acute onset. Later localized to joints with some edema. LE Duplex 08/26/19 unremarkable ORDERING SYSTEM PROVIDED DIAGNOSIS CODES: I77.71 Carotid artery dissection (HCC) I63.9 Cerebrovascular accident (CVA), unspecified mechanism (HCC) J96.90 Respiratory failure, unspecified chronicity, unspecified whether with hypoxia or hypercapnia (HCC) I63.231 Cerebrovascular accident (CVA) due to occlusion of right carotid artery (HCC) R13.10 Dysphagia, unspecified type I63.031 Cerebrovascular accident (CVA) due to thrombosis of right carotid artery (HCC) COMPARISON: None available TECHNIQUE: AP, lateral and oblique views FINDINGS: There is no fracture or dislocation. Soft tissues are intact without radiopaque foreign body noted. Joint effusion is not seen on the lateral projection. [facility] Interface, Rad In Fu ji Speechq - 08/28/2019 2:37 PM EST EXAMINATION: XR KNEE LEFT 2 VIEWS (STANDARD) HISTORY: ORDERING SYSTEM PROVIDED HISTORY: Pain, edema, TECHNOLOGIST PROVIDED HISTORY: Illness/Other Reason for exam: Pain, edema Cancer History: unk Surgery, RadiationHistory: unk Encounter Type: Initial Additional signs and symptoms: Knee distal, posterior, acute onset. Later localized to joints with some edema. LE Duplex 08/26/19 unremarkable ORDERING SYSTEM PROVIDED DIAGNOSIS CODES: I77.71 Carotid artery dissection (HCC) I63.9 Cerebrovascular accident (CVA), unspecified mechanism (HCC) J96.90 Respiratory failure, unspecified chronicity, unspecified whether with hypoxia or hypercapnia (HCC) I63.231 Cerebrovascular accident (CVA) due to occlusion of right carotid artery (HCC) R13.10 Dysphagia, unspecified type I63.031 Cerebrovascular accident (CVA) due to thrombosis of right carotid artery (HCC) COMPARISON: None available TECHNIQUE: AP, lateral and oblique views FINDINGS: There is no fracture or dislocation. Soft tissues are intact without radiopaque foreign body noted. Joint effusion is not seen on the lateral projection. IMPRESSION: No acute injury. Workstation ID: [id number] [facility] No acute injury. Workstation ID: [id number] [facility] Ultrasound duplex venous leg s bilaton 08-26-2019 Interface, Rad In artlab Xper Echopacs - 08/26/2019 3:56 PM EST Non-Invasive Vascular Patient: LISA Moran [facility] Rec#: [id number] (Age): 1975(44y) Study Date: 08/26/2019 Room#: 6206 Type: Inpatient Sex: M Reading: Ra Patterson MD Referring: Shelly Benavides MD Patient Access Specialist: Stacia Dvais RVT, BEVERLY Procedure Info: [id number] Study Quality: Diagnosis: R52 Pain, unspecified Lower Venous Duplex Conclusions No evidence of deep or superficial vein thrombosis in either lower extremity. Finding Grids Right Duplex Exam Spont Phasic External Iliac Y Y Common Femoral Y Y Proximal Profunda _ _ Proximal Femoral Y Y Mid Femoral Y Y Distal Femoral Y Y Popliteal Y Y Posterior Tibial _ _ Peroneal _ _ Great Saphenous _ _ Augment Color Filling Compressibility External Iliac Y Y Y Common Femoral Y Y Y Proximal Profunda _ Y _ Proximal Femoral Y Y Y Mid Femoral Y Y Y Distal Femoral Y Y Y Popliteal Y Y Y Posterior Tibial _ Y Y Peroneal _ Y Y Great Saphenous _ _ Y Chirinos --------- Y = Yes Left Duplex Exam Spont Phasic External Iliac Y Y Common Femoral Y Y Proximal Profunda _ _ Proximal Femoral Y Y Mid Femoral Y Y Distal Femoral Y Y Popliteal Y Y Posterior Tibial _ _ Peroneal _ _ Great Saphenous _ _ Augment Color Filling Compressibility External Iliac Y Y Y Common Femoral Y Y Y Proximal Profunda _ Y _ Proximal Femoral Y Y Y Mid Femoral Y Y Y Distal Femoral Y Y Y Popliteal Y Y Y Posterior Tibial _ Y Y Peroneal _ Y Y Great Saphenous _ _ Y Chirinos --------- Y = Yes Electronically signed at 08/26/2019 14:54:26 by: Ra Patterson MD [facility] Non-Invasive Vascula r Patient: LISA Moran [facility] Rec#: [id number] (Age): 1975(44y) Study Date: 08/26/2019 Room#: 6206 Type: Inpatient Sex: M Reading: Ra Patterson MD Referring: Shelly Benavides MD Patient Access Specialist: Stacia Davis RVT, BEVERLY Procedure Info: [id number] Study Quality: Diagnosis: R52 Pain, unspecified Lower Venous Duplex Conclusions No evidence of deep or superficial vein thrombosis in either lower extremity. Finding Grids Right Duplex Exam Spont Phasic External Iliac Y Y Common Femoral Y Y Proximal Profunda _ _ Proximal Femoral Y Y Mid Femoral Y Y Distal Femoral Y Y Popliteal Y Y Posterior Tibial _ _ Peroneal _ _ Great Saphenous _ _ Augment Color Filling Compressibility External Iliac Y Y Y Common Femoral Y Y Y Proximal Profunda _ Y _ Proximal Femoral Y Y Y Mid Femoral Y Y Y Distal Femoral Y Y Y Popliteal Y Y Y Posterior Tibial _ Y Y Peroneal _ Y Y Great Saphenous _ _ Y Chirinos --------- Y = Yes Left Duplex Exam Spont Phasic External Iliac Y Y Common Femoral Y Y Proximal Profunda _ _ Proximal Femoral Y Y Mid Femoral Y Y Distal Femoral Y Y Popliteal Y Y Posterior Tibial _ _ Peroneal _ _ Great Saphenous _ _ Augment Color Filling Compressibility External Iliac Y Y Y Common Femoral Y Y Y Proximal Profunda _ Y _ Proximal Femoral Y Y Y Mid Femoral Y Y Y Distal Femoral Y Y Y Popliteal Y Y Y Posterior Tibial _ Y Y Peroneal _ Y Y Great Saphenous _ _ Y Chirinos --------- Y = Yes Electronically signed at 08/26/2019 14:54:26 by: Ra Patterson MD [facility] CBCon 08-11-2019 Erythrocyte distribution width (RBC) [Entitic vol] 16.0 % High 11.6 - 14.8 % [facility] Hematocrit (Bld) [Volume fraction] 41.0 % 41 - 53 % [facility] Hemoglobin (Bld) [Mass/Vol] 12.8 g/dL Low 13.5 - 17.5 g/dL [facility] Interpretation and review of laboratory results Abnormal [facility] MCH (RBC) [Entitic mass] 27.3 pg 26 - 34 pg [facility] MCHC (RBC) [Mass/Vol] 31.2 g/dL 31 - 3 7 g/dL [facility] MCV (RBC) [Entitic vol] 87.4 fL 80 - 100 fL [facility] Nucleated RBC (Bld) [#/Vol] 0.00 10*3/uL [facility] Nucleated RBC/100 WBC (Bld) [Ratio] 0.0 % [facility] Platelet mean volume (Bld) [Entitic vol] 8.9 fL Low 9 - 15.5 fL [facility] Platelets (Bld) [#/Vol] 217 10*3/uL [facility] RBC (Bld) [#/Vol] 4.69 10*6/uL [facility] WBC (Bld) [#/Vol] 7.49 10*3/uL [facility] PT/INRon 08-11-2019 INR Coag (PPP) [Relative time] 1.1 {INR} [facility] Interpretation and review of laboratory results Normal [facility] PT Coag (PPP) [Time] 13.4 s [facility] During the induction phase of oral anticoagulation, the INR may not reflect the anticoagulation status of the patient. Therapeutic ranges for INR's are: Most clinical situations: INR 2.0-3.0 Mechanical Prosthetic Valve: INR 2.5-3.5 Critical: INR >5.0 [facility] ECG 12-LEADon 08-04-2019 Atrial Rate 73 BPM [facility] P Eola 60 degrees [facility] P-R Interval 146 ms [facility] Q-T Interval 390 ms [facility] QRS Duration 102 ms [facility] QTC Calculation (Bezet) 429 ms [facility] R Eola 1 degrees [facility] T Eola 34 degrees [facility] Ventricular Rate 73 BPM [facility] Normal sinus rhythm Normal ECG Confirmed by HAYLIE PEGUERO MD ([id number]) on 08/04/2019 3:32:28 PM [facility] BODY FLUID FUNGUS CULTUREon 08-03-2019 Fungus identified Fungus stain Nom (Unsp spec) No Fungal or Yeast Elements [facility] Fungus Org specific cx Ql (Unsp spec) No Fungus Isolated At 4 Weeks [facility] TROPONINon 08-03-2019 Troponin T.cardiac [Mass/Vol] 2 ng/L < = -/+ 7 change [facility] Troponin T.cardiac [Mass/Vol] 16 ng/L <=22 [facility] Troponin T.cardiac [Mass/Vol] No biomarker evidence of cardiac injury. [facility] Troponin T.cardiac [Mass/Vol] Normal [facility] Troponin T.cardiac [Mass/Vol] 14 ng/L <=22 [facility] Basic Metabolic Panelon 07-09 Anion gap [Moles/Vol] 14 mmol/L 10 - 2 0 mmol/L [facility] Calcium [Mass/Vol] 9.4 mg/dL 8.4 - 10. 2 mg/dL [facility] Chloride [Moles/Vol] 99 mmol/L 98 - 10 8 mmol/L [facility] Creatinine [Mass/Vol] 0.76 mg/dL 0.5 - 1.3 mg/dL [facility] GFR/1.73 sq M.predicted CKD-EPI (S/P/Bld) [Vol rate/Area] 109 >=60 mL/min/1.7 3 m2 [facility] Glucose [Mass/Vol] 108 mg/dL High 65 - 99 mg/dL [facility] HCO3 [Moles/Vol] 28 mmol/L 21 - 32 mmol/L [facility] Interpretation and review of laboratory results Abnormal [facility] Potassium [Moles/Vol] 3.9 mmol/L 3.5 - 5.1 mmol/L [facility] Sodium [Moles/Vol] 137 mmol/L 135 - 145 mmol/L [facility] Urea nitrogen [Mass/Vol] 15 mg/dL 8 - 25 mg/dL [facility] Urea nitrogen/Creatinine [Mass ratio] 19.7 mg/mg [facility] The eGFR should be u sed for monitoring renal function only and not for medication dosing. [facility] CBCon 07-31-2019 Erythrocyte distribution width (RBC) [Entitic vol] 16.2 % High 11.6 - 14.8 % [facility] Hematocrit (Bld) [Volume fraction] 38.3 % Low 41 - 53 % [facility] Hemoglobin (Bld) [Mass/Vol] 12.6 g/dL Low 13.5 - 17.5 g/dL [facility] Interpretation and review of laboratory results Abnormal [facility] MCH (RBC) [Entitic mass] 27.8 pg 26 - 34 pg [facility] MCHC (RBC) [Mass/Vol] 32.9 g/dL 31 - 3 7 g/dL [facility] MCV (RBC) [Entitic vol] 84.4 fL 80 - 100 fL [facility] Nucleated RBC (Bld) [#/Vol] 0.00 10*3/uL [facility] Nucleated RBC/100 WBC (Bld) [Ratio] 0.0 % [facility] Platelet mean volume (Bld) [Entitic vol] 8.2 fL Low 9 - 15.5 fL [facility] Platelets (Bld) [#/Vol] 299 10*3/uL [facility] RBC (Bld) [#/Vol] 4.54 10*6/uL [facility] WBC (Bld) [#/Vol] 7.88 10*3/uL [facility] Basic Metabolic Panelon 07-08 Anion gap [Moles/Vol] 16 mmol/L 10 - 2 0 mmol/L [facility] Calcium [Mass/Vol] 9.1 mg/dL 8.4 - 10. 2 mg/dL [facility] Chloride [Moles/Vol] 96 mmol/L Low 98 - 10 8 mmol/L [facility] Creatinine [Mass/Vol] 0.70 mg/dL 0.5 - 1.3 mg/dL [facility] GFR/1.73 sq M.predicted CKD-EPI (S/P/Bld) [Vol rate/Area] 113 >=60 mL/min/1.7 3 m2 [facility] Glucose [Mass/Vol] 100 mg/dL High 65 - 99 mg/dL [facility] HCO3 [Moles/Vol] 26 mmol/L 21 - 32 mmol/L [facility] Interpretation and review of laboratory results Abnormal [facility] Potassium [Moles/Vol] 3.8 mmol/L 3.5 - 5.1 mmol/L [facility] Sodium [Moles/Vol] 134 mmol/L Low 135 - 145 mmol/L [facility] Urea nitrogen [Mass/Vol] 12 mg/dL 8 - 25 mg/dL [facility] Urea nitrogen/Creatinine [Mass ratio] 17.1 mg/mg [facility] The eGFR should be u sed for monitoring renal function only and not for medication dosing. [facility] Blood Culture Aerobic/Anaero bicon 07-26-2019 Bacteria identified Cx Nom (Bld) No [facility] Erythrocyte distribution width (RBC) [Entitic vol] 15.9 % High 11.6 - 14.8 % [facility] Hematocrit (Bld) [Volume fraction] 37.4 % Low 41 - 53 % [facility] Hemoglobin (Bld) [Mass/Vol] 12.1 g/dL Low 13.5 - 17.5 g/dL [facility] Interpretation and review of laboratory results Abnormal [facility] MCH (RBC) [Entitic mass] 27.4 pg 26 - 34 pg [facility] MCHC (RBC) [Mass/Vol] 32.4 g/dL 31 - 3 7 g/dL [facility] MCV (RBC) [Entitic vol] 84.6 fL 80 - 100 fL [facility] Nucleated RBC (Bld) [#/Vol] 0.00 10*3/uL [facility] Nucleated RBC/100 WBC (Bld) [Ratio] 0.0 % [facility] Platelet mean volume (Bld) [Entitic vol] 8.5 fL Low 9 - 15.5 fL [facility] Platelets (Bld) [#/Vol] 221 10*3/uL [facility] RBC (Bld) [#/Vol] 4.42 10*6/uL Low [facility] ealth WBC (Bld) [#/Vol] 6.97 10*3/uL [facility] Urine Aerobic Cultureon 07-08 Bacteria identified Aer cx Nom (Unsp spec) >100,000 CFU/mL Enterococcus faecalis Abnormal [facility] Bacteria identified Aer cx Nom (Unsp spec) >100,000 CFU/mL Klebsiella pneumoniae Abnormal [facility] Interpretation and review of laboratory results Abnormal [facility] Basic Metabolic Panelon 07-08 Anion gap [Moles/Vol] 16 mmol/L 10 - 2 0 mmol/L [facility] Calcium [Mass/Vol] 9.0 mg/dL 8.4 - 10. 2 mg/dL [facility] Chloride [Moles/Vol] 95 mmol/L Low 98 - 10 8 mmol/L [facility] Creatinine [Mass/Vol] 0.78 mg/dL 0.5 - 1.3 mg/dL [facility] GFR/1.73 sq M.predicted CKD-EPI (S/P/Bld) [Vol rate/Area] 108 >=60 mL/min/1.7 3 m2 [facility] Glucose [Mass/Vol] 112 mg/dL High 65 - 99 mg/dL [facility] HCO3 [Moles/Vol] 27 mmol/L 21 - 32 mmol/L [facility] Interpretation and review of laboratory results Abnormal [facility] Potassium [Moles/Vol] 4.4 mmol/L 3.5 - 5.1 mmol/L [facility] Sodium [Moles/Vol] 134 mmol/L Low 135 - 145 mmol/L [facility] Urea nitrogen [Mass/Vol] 13 mg/dL 8 - 25 mg/dL [facility] Urea nitrogen/Creatinine [Mass ratio] 16.7 mg/mg [facility] The eGFR should be u sed for monitoring renal function only and not for medication dosing. [facility] ECG 12-LEADon 07-21-2019 Atrial Rate 98 BPM [facility] P Eola 63 degrees [facility] P-R Interval 138 ms [facility] Q-T Interval 344 ms [facility] QRS Duration 92 ms [facility] QTC Calculation (Bezet) 439 ms [facility] R Eola 8 degrees [facility] T Eola 48 degrees [facility] Ventricular Rate 98 BPM [facility] Normal sinus rhythm Normal ECG Confirmed by ULI NORWOOD MD ([id number]) on 07/21/2019 7:19:51 AM [facility] Osmolality, Urineon 07-21-19 20 Osmolality (U) [Osmolality] 363 mosm/kg mOsm/kg [facility] No established refer ence range. [facility] Sodium, Urine, Randomon 07-08 Sodium (U) [Moles/Vol] 28 mmol/L [facility] No established refer ence range. [facility] URINALYSISon 07-21-2019 Bacteria Auto Ql (U) Few Abnormal None Se en /hpf [facility] Bilirubin Ql (U) Negative Negative [facility] Clarity Refractometry automated (U) Clear Clear [facility] Color (U) Yellow Colorless, Yellow [facility] Glucose Auto test strip (U) [Mass/Vol] Negative Negative mg/dL [facility] Hemoglobin Auto test strip Ql (U) Small Abnormal Negative [facility] Interpretation and review of laboratory results Abnormal [facility] Ketones (U) [Mass/Vol] Negative Negative mg/dL [facility] Leukocyte esterase Auto test strip Ql (U) Negative Negative [facility] Mucus Auto (Urine sed) [#/Area] Rare None Seen, Rare /lpf [facility] Nitrite Auto test strip Ql (U) Negative Negative [facility] pH (U) 5.0 [pH] [facility] Protein (U) [Mass/Vol] Negative Negative mg/dL [facility] RBC Auto (Urine sed) [#/Area] 1 [facility] Specific gravity (U) [Rel density] 1.012 [facility] Urobilinogen (U) [Mass/Vol] <2.0 <2.0 mg/dL [facility] WBC Auto (Urine sed) [#/Area] 12 High [facility] Microscopic examinat ion is performed on all urinalysis samples and only positive findings are reported. The test for blood on the chemical analytic portion of urinalysis may also be positive due to hemoglobinuria and myoglobinuria and if red blood cells are present they are quantified by microscopic examination. [facility] Basic Metabolic Panelon 07-08 Anion gap [Moles/Vol] 15 mmol/L 10 - 2 0 mmol/L [facility] Calcium [Mass/Vol] 9.0 mg/dL 8.4 - 10. 2 mg/dL [facility] Chloride [Moles/Vol] 91 mmol/L Low 98 - 10 8 mmol/L [facility] Creatinine [Mass/Vol] 0.78 mg/dL 0.5 - 1.3 mg/dL [facility] GFR/1.73 sq M.predicted CKD-EPI (S/P/Bld) [Vol rate/Area] 108 >=60 mL/min/1.7 3 m2 [facility] Glucose [Mass/Vol] 135 mg/dL High 65 - 99 mg/dL [facility] HCO3 [Moles/Vol] 26 mmol/L 21 - 32 mmol/L [facility] Interpretation and review of laboratory results Abnormal [facility] Potassium [Moles/Vol] 3.9 mmol/L 3.5 - 5.1 mmol/L [facility] Sodium [Moles/Vol] 128 mmol/L Low 135 - 145 mmol/L [facility] Urea nitrogen [Mass/Vol] 11 mg/dL 8 - 25 mg/dL [facility] Urea nitrogen/Creatinine [Mass ratio] 14.1 mg/mg [facility] The eGFR should be u sed for monitoring renal function only and not for medication dosing. [facility] CBCon 07-20-2019 Erythrocyte distribution width (RBC) [Entitic vol] 16.8 % High 11.6 - 14.8 % [facility] Hematocrit (Bld) [Volume fraction] 35.6 % Low 41 - 53 % [facility] Hemoglobin (Bld) [Mass/Vol] 11.8 g/dL Low 13.5 - 17.5 g/dL [facility] Interpretation and review of laboratory results Abnormal [facility] MCH (RBC) [Entitic mass] 28.4 pg 26 - 34 pg [facility] MCHC (RBC) [Mass/Vol] 33.1 g/dL 31 - 3 7 g/dL [facility] MCV (RBC) [Entitic vol] 85.6 fL 80 - 100 fL [facility] Nucleated RBC (Bld) [#/Vol] 0.00 10*3/uL [facility] Nucleated RBC/100 WBC (Bld) [Ratio] 0.0 % [facility] Platelet mean volume (Bld) [Entitic vol] 8.2 fL Low 9 - 15.5 fL [facility] Platelets (Bld) [#/Vol] 178 10*3/uL [facility] RBC (Bld) [#/Vol] 4.16 10*6/uL Low [facility] WBC (Bld) [#/Vol] 6.48 10*3/uL [facility] ealth Osmolalityon 07-20-2019 Interpretation and review of laboratory results Normal [facility] Osmolality [Osmolality] 275 mosm/kg [facility] Ultrasound duplex venous leg s bilaton 07-20-2019 Interface, Rad In artlab Xper Echopacs - 07/20/2019 1:04 PM EST Non-Invasive Vascular Patient: LISA Moran [facility] Rec#: [id number] (Age): 1975(44y) Study Date: 07/20/2019 Room#: 6206 Type: Inpatient Sex: M Reading: Cintia Kang DO, RVT, RPVI, FSVM Referring: Romie Tse MD Patient Access Specialist: tSacia Davis RVT, BEVERLY Procedure Info: [id number] Study Quality: Diagnosis: R50.9 Fever, unspecified Lower Venous Duplex Conclusions No evidence of deep or superficial vein thrombosis in either lower extremity. Finding Grids Right Duplex Exam Spont Phasic External Iliac Y Y Common Femoral Y Y Proximal Profunda _ _ Proximal Femoral Y Y Mid Femoral Y Y Distal Femoral Y Y Popliteal Y Y Posterior Tibial _ _ Peroneal _ _ Great Saphenous _ _ Augment Color Filling Compressibility External Iliac Y Y Y Common Femoral Y Y Y Proximal Profunda _ Y _ Proximal Femoral Y Y Y Mid Femoral Y Y Y Distal Femoral Y Y Y Popliteal Y Y Y Posterior Tibial _ Y Y Peroneal _ Y Y Great Saphenous _ _ Y Chirinos --------- Y = Yes Left Duplex Exam Spont Phasic External Iliac Y Y Common Femoral Y Y Proximal Profunda _ _ Proximal Femoral Y Y Mid Femoral Y Y Distal Femoral Y Y Popliteal Y Y Posterior Tibial _ _ Peroneal _ _ Great Saphenous _ _ Augment Color Filling Compressibility External Iliac Y Y Y Common Femoral Y Y Y Proximal Profunda _ Y _ Proximal Femoral Y Y Y Mid Femoral Y Y Y Distal Femoral Y Y Y Popliteal Y Y Y Posterior Tibial _ Y Y Peroneal _ Y Y Great Saphenous _ _ Y Chirinos --------- Y = Yes Electronically signed at 07/20/2019 13:03:02 by: Cintia Kang DO, RVT, RPVI, FSVM [facility] Non-Invasive Vascula r Patient: LISA Moran [facility] Rec#: [id number] (Age): 1975(44y) Study Date: 07/20/2019 Room#: 6206 Type: Inpatient Sex: M Reading: Cintia Kang DO, PETAR, RPVI, FSVM Referring: Romie Tse MD Patient Access Specialist: Stacia Davis RVT, RDMS Procedure Info: [id number] Study Quality: Diagnosis: R50.9 Fever, unspecified Lower Venous Duplex Conclusions No evidence of deep or superficial vein thrombosis in either lower extremity. Finding Grids Right Duplex Exam Spont Phasic External Iliac Y Y Common Femoral Y Y Proximal Profunda _ _ Proximal Femoral Y Y Mid Femoral Y Y Distal Femoral Y Y Popliteal Y Y Posterior Tibial _ _ Peroneal _ _ Great Saphenous _ _ Augment Color Filling Compressibility External Iliac Y Y Y Common Femoral Y Y Y Proximal Profunda _ Y _ Proximal Femoral Y Y Y Mid Femoral Y Y Y Distal Femoral Y Y Y Popliteal Y Y Y Posterior Tibial _ Y Y Peroneal _ Y Y Great Saphenous _ _ Y Chirinos --------- Y = Yes Left Duplex Exam Spont Phasic External Iliac Y Y Common Femoral Y Y Proximal Profunda _ _ Proximal Femoral Y Y Mid Femoral Y Y Distal Femoral Y Y Popliteal Y Y Posterior Tibial _ _ Peroneal _ _ Great Saphenous _ _ Augment Color Filling Compressibility External Iliac Y Y Y Common Femoral Y Y Y Proximal Profunda _ Y _ Proximal Femoral Y Y Y Mid Femoral Y Y Y Distal Femoral Y Y Y Popliteal Y Y Y Posterior Tibial _ Y Y Peroneal _ Y Y Great Saphenous _ _ Y Chirinos --------- Y = Yes Electronically signed at 07/20/2019 13:03:02 by: Cintia Kang DO, PETAR, ASHUTOSH, ANSHUL [facility] XR Chest 1 Viewon 07-20-2019 EXAMINATION: XR CHES T PA/AP 07/20/2019 11:24 am HISTORY: ORDERING SYSTEM PROVIDED HISTORY: Fever, TECHNOLOGIST PROVIDED HISTORY: Illness/Other Reason for exam: Fever Cancer History: Surgery, RadiationHistory: Encounter Type: Initial Additional signs and symptoms: ORDERING SYSTEM PROVIDED DIAGNOSIS CODES: I77.71 Carotid artery dissection (HCC) I63.9 Cerebrovascular accident (CVA), unspecified mechanism (HCC) J96.90 Respiratory failure, unspecified chronicity, unspecified whether with hypoxia or hypercapnia (HCC) I63.231 Cerebrovascular accident (CVA) due to occlusion of right carotid artery (HCC) R13.10 Dysphagia, unspecified type I63.031 Cerebrovascular accident (CVA) due to thrombosis of right carotid artery (HCC) COMPARISON: Chest x-ray 06/28/2019. FINDINGS: Single frontal view of the chest was obtained. Patient is rotated to the right. The cardiomediastinal silhouette is within normal limits. Lungs are clear without focal airspace consolidation. No pneumothorax or pleural effusion. Visualized portions of the upper abdomen are unremarkable. No acute osseous abnormalities. [facility] Interface, Rad In Fu ji Speechq - 07/20/2019 3:04 PM EST EXAMINATION: XR CHEST PA/AP 07/20/2019 11:24 am HISTORY: ORDERING SYSTEM PROVIDED HISTORY: Fever, TECHNOLOGIST PROVIDED HISTORY: Illness/Other Reason for exam: Fever Cancer History: Surgery, RadiationHistory: Encounter Type: Initial Additional signs and symptoms: ORDERING SYSTEM PROVIDED DIAGNOSIS CODES: I77.71 Carotid artery dissection (HCC) I63.9 Cerebrovascular accident (CVA), unspecified mechanism (HCC) J96.90 Respiratory failure, unspecified chronicity, unspecified whether with hypoxia or hypercapnia (HCC) I63.231 Cerebrovascular accident (CVA) due to occlusion of right carotid artery (HCC) R13.10 Dysphagia, unspecified type I63.031 Cerebrovascular accident (CVA) due to thrombosis of right carotid artery (HCC) COMPARISON: Chest x-ray 06/28/2019. FINDINGS: Single frontal view of the chest was obtained. Patient is rotated to the right. The cardiomediastinal silhouette is within normal limits. Lungs are clear without focal airspace consolidation. No pneumothorax or pleural effusion. Visualized portions of the upper abdomen are unremarkable. No acute osseous abnormalities. IMPRESSION: No acute cardiopulmonary abnormality. Workstation ID: [id number] [facility] No acute cardiopulmo nary abnormality. Workstation ID: [id number] [facility] Chem 7on 07-16-2019 Anion gap [Moles/Vol] 16 mmol/L 10 - 2 0 mmol/L [facility] Chloride [Moles/Vol] 98 mmol/L 98 - 10 8 mmol/L [facility] Creatinine [Mass/Vol] 0.64 mg/dL 0.5 - 1.3 mg/dL [facility] GFR/1.73 sq M.predicted CKD-EPI (S/P/Bld) [Vol rate/Area] 117 >=60 mL/min/1.7 3 m2 [facility] Glucose [Mass/Vol] 100 mg/dL High 65 - 99 mg/dL [facility] HCO3 [Moles/Vol] 27 mmol/L 21 - 32 mmol/L [facility] Interpretation and review of laboratory results Abnormal [facility] Potassium [Moles/Vol] 3.7 mmol/L 3.5 - 5.1 mmol/L [facility] Sodium [Moles/Vol] 137 mmol/L 135 - 145 mmol/L [facility] Urea nitrogen [Mass/Vol] 18 mg/dL 8 - 25 mg/dL [facility] Urea nitrogen/Creatinine [Mass ratio] 28.1 mg/mg High [facility] The eGFR should be u sed for monitoring renal function only and not for medication dosing. [facility] Magnesium Levelon 07-16-2019 Interpretation and review of laboratory results Normal [facility] Magnesium [Mass/Vol] 1.9 mg/dL 1.6 - 2 .4 mg/dL [facility] POC Glucoseon 07-14-2019 Glucose [Mass/Vol] 140 mg/dL High 65 - 99 mg/dL [facility] Interpretation and review of laboratory results Abnormal [facility] Glucose [Mass/Vol] 135 mg/dL High 65 - 99 mg/dL [facility] Interpretation and review of laboratory results Abnormal [facility] POC Glucoseon 07-13-2019 Glucose [Mass/Vol] 141 mg/dL High 65 - 99 mg/dL [facility] Interpretation and review of laboratory results Abnormal [facility] Basic Metabolic Panelon Anion gap [Moles/Vol] 15 mmol/L 10 - 2 0 mmol/L [facility] Calcium [Mass/Vol] 9.2 mg/dL 8.4 - 10. 2 mg/dL [facility] Chloride [Moles/Vol] 97 mmol/L Low 98 - 10 8 mmol/L [facility] Creatinine [Mass/Vol] 0.59 mg/dL 0.5 - 1.3 mg/dL [facility] GFR/1.73 sq M.predicted CKD-EPI (S/P/Bld) [Vol rate/Area] 121 >=60 mL/min/1.7 3 m2 [facility] Glucose [Mass/Vol] 109 mg/dL High 65 - 99 mg/dL [facility] HCO3 [Moles/Vol] 27 mmol/L 21 - 32 mmol/L [facility] Interpretation and review of laboratory results Abnormal [facility] Potassium [Moles/Vol] 4.0 mmol/L 3.5 - 5.1 mmol/L [facility] Sodium [Moles/Vol] 135 mmol/L 135 - 145 mmol/L [facility] Urea nitrogen [Mass/Vol] 26 mg/dL High 8 - 25 mg/dL [facility] Urea nitrogen/Creatinine [Mass ratio] 44.1 mg/mg High [facility] The eGFR should be u sed for monitoring renal function only and not for medication dosing. [facility] CBCon 07-11-2019 Erythrocyte distribution width (RBC) [Entitic vol] 16.9 % High 11.6 - 14.8 % [facility] Hematocrit (Bld) [Volume fraction] 35.9 % Low 41 - 53 % [facility] Hemoglobin (Bld) [Mass/Vol] 11.4 g/dL Low 13.5 - 17.5 g/dL [facility] Interpretation and review of laboratory results Abnormal [facility] MCH (RBC) [Entitic mass] 27.7 pg 26 - 34 pg [facility] MCHC (RBC) [Mass/Vol] 31.8 g/dL 31 - 3 7 g/dL [facility] MCV (RBC) [Entitic vol] 87.1 fL 80 - 100 fL [facility] Nucleated RBC (Bld) [#/Vol] 0.00 10*3/uL [facility] Nucleated RBC/100 WBC (Bld) [Ratio] 0.0 % [facility] Platelet mean volume (Bld) [Entitic vol] 7.9 fL Low 9 - 15.5 fL [facility] Platelets (Bld) [#/Vol] 280 10*3/uL [facility] RBC (Bld) [#/Vol] 4.12 10*6/uL Low [facility] WBC (Bld) [#/Vol] 9.94 10*3/uL [facility] CBC WITH AUTO DIFFERENTIALon 07-09-2019 Basophils (Bld) [#/Vol] 0.06 10*3/uL [facility] Basophils/100 WBC (Bld) 0.6 % [facility] Eosinophils (Bld) [#/Vol] 0.46 10*3/uL [facility] Eosinophils/100 WBC (Bld) 4.4 % [facility] Erythrocyte distribution width (RBC) [Entitic vol] 16.5 % High 11.6 - 14.8 % [facility] Hematocrit (Bld) [Volume fraction] 34.9 % Low 41 - 53 % [facility] Hemoglobin (Bld) [Mass/Vol] 11.1 g/dL Low 13.5 - 17.5 g/dL [facility] Immature granulocytes (Bld) [#/Vol] 0.03 10*3/uL [facility] Immature granulocytes/100 WBC (Bld) 0.30 % [facility] Comment on above: The IG parameter is the percentage of metamyelocytes, myelocytes, and promyelocytes. Interpretation and review of laboratory results Abnormal [facility] Lymphocytes (Bld) [#/Vol] 1.90 10*3/uL [facility] Lymphocytes/100 WBC (Bld) 18.1 % [facility] MCH (RBC) [Entitic mass] 28.2 pg 26 - 34 pg [facility] MCHC (RBC) [Mass/Vol] 31.8 g/dL 31 - 3 7 g/dL [facility] MCV (RBC) [Entitic vol] 88.6 fL 80 - 100 fL [facility] Monocytes (Bld) [#/Vol] 0.58 10*3/uL [facility] Monocytes/100 WBC (Bld) 5.5 % [facility] Neutrophils (Bld) [#/Vol] 7.47 10*3/uL High [facility] Neutrophils/100 WBC (Bld) 71.1 % [facility] Nucleated RBC (Bld) [#/Vol] 0.00 10*3/uL [facility] Nucleated RBC/100 WBC (Bld) [Ratio] 0.0 % [facility] Platelet mean volume (Bld) [Entitic vol] 8.2 fL Low 9 - 15.5 fL [facility] Platelets (Bld) [#/Vol] 294 10*3/uL [facility] RBC (Bld) [#/Vol] 3.94 10*6/uL [facility] ealth WBC (Bld) [#/Vol] 10.50 10*3/uL [facility] MR Hip Left Without Contrast on 07-09-2019 1. There is persiste nt diffuse myositis involving the left gluteus, obturator internus, piriformis and quadratus femoris muscles, also involving the left adductor and obturator externus muscles. Similar distribution of muscle edema was demonstrated on the MRI 07/01/2019. The etiology of the myositis remains concerning for an infectious etiology given leukocytosis. Please correlate for IVDA. Less likely rhabdomyolysis. 2. There remains a small fluid collection in the soft tissues/gluteus musculature posterior to the left acetabulum measuring approximately 2 x 0.6 cm which remains concerning for a small infected collection given the prominent surrounding myositis. However, the fluid collection is small. Please see image 21 and 22 axial STIR images of the pelvis. Small hematoma would be considered unlikely given persistence and extent of multi muscle myositis. 3. Persistent moderate sized left hip joint effusion remains. However, there is no evidence of osteomyelitis in the left hip. No osseous erosions or bone marrow edema. Please correlate with laboratory analysis of the left hip aspiration. 4. Persistent small amount of fluid in the left iliopsoas bursa seen. PD/trn Workstation ID: [id number] [facility] EXAMINATION: MR HIP LEFT WITHOUT CONTRAST HISTORY: Assessment/Plan: Johnathan Gonzalez is a 44 y.o. male with a history of HTN who presented to [facility] 05/25/2019 from OSH after being found unresponsive. At the OSH he was found to have right MCA CVA with malignant edema and acute respiratory failure s/p intubation. He was admitted to [facility], s/p craniectomy 05/26/19. Course complicated by trach and PEG, PNA, right ICA dissection. [facility] consulted to assume care. Course further prolonged pending LTACH placement. 1. Right MCA CVA with Malignant Edema: found on imaging at OSH. CTA head/neck on admit with ADI occlusion with concern for dissection. CT head 05/26/19 with increased mass effect and increased midline shift. Craniectomy performed 05/26/[address] Rankin ([facility]). MRA neck 05/27/19 with right ICA dissection. TTE 05/26/19 with EF 60-65%, negative bubble study. NCC followed. Continue Aspirin and Atorvastatin. 2. Abnormal Urine: noted to be dark brown 06/21/19 with grossly abnormal UA. CT A&P 06/22/19 with mild obstructive uropathy on the left side and small intrarenal non-obstructing stones BL. Urine cytology 06/22/2019 negative for high-grade urothelial carcinoma, noted chronic inflammation. Urine culture 06/22/2019 negative. Urology followed. Continue outpt f/u with Dr. Lind. 3. Acute Hypoxic Respiratory Failure: secondary to CVA and malignant edema. Remained encephalopathic and hypoxic, s/p trach 06/09/19. Weaned off vent and decannulated 07/03/19. Resolved. 4. Left Hip Myositis: Noted to have severe left hip pain with movement. Left Hip Xray 06/29/19 unremarkable. Left Hip Joint Aspiration 06/30/19 a dry tap. Left Hip MRI 07/01/19 demonstrated complex, heterogeneous, rim enhancing collection measuring 1.6 x 3.7 cm within the left gluteus medius muscle with surrounding myositis. Ortho and VIR followed; per VIR imaging diffuse inflammation and nothing to aspirate. ID consulted; at this time no abx indicated. Blood Cultures x 2 07/02/19 NGTD. Supportive care with pain control. Per Ortho if pain doesn't improve within several days consider repeat MRI to eval myositis. Ordered repeat MRI in setting of ongoing pain and uptrending WBC. COMPARISON: Left hip MRI performed on 07/01/2019. TECHNIQUE: Multiplanar, multisequence imaging of the left hip without IV contrast. FINDINGS: There is persistent diffuse myositis involving the left gluteus, obturator internus, piriformis and quadratus femoris muscles, also involving the left adductor and obturator externus muscles. Similar distribution of muscle edema was demonstrated on the MRI 07/01/2019. The etiology of the myositis remains concerning for an infectious etiology given leukocytosis. Please correlate for IVDA. Less likely rhabdomyolysis. There remains a small fluid collection in the soft tissues/gluteus musculature posterior to the left acetabulum measuring approximately 2 x 0.6 cm which remains concerning for a small infected collection given the prominent surrounding myositis. However, the fluid collection is small. Please see image 21 and 22 axial STIR images of the pelvis. Small hematoma would be considered unlikely given persistence of the myositis. Persistent moderate sized left hip joint effusion remains. However, there is no evidence of osteomyelitis in the left hip. No osseous erosions or bone marrow edema. No evidence of acute fracture or neoplastic change. The visualized sacrum and SI joints appear unremarkable. The right hip joint appears within normal limits. No tear of the hamstring, rectus femoris or iliopsoas tendons. Persistent small amount of fluid in the left iliopsoas bursa seen. The pubic symphysis is intact. There is also mild dorsal bilateral paraspinal muscle edema in the lower lumbar spine region, also unchanged. Advanced discogenic narrowing at L5-S1 redemonstrated. [facility] Interface, Rad In Fu ji Speechq - 07/09/2019 3:53 PM EST EXAMINATION: MR HIP LEFT WITHOUT CONTRAST HISTORY: Assessment/Plan: Johnathan Gonzalez is a 44 y.o. male with a history of HTN who presented to [facility] 05/25/2019 from OSH after being found unresponsive. At the OSH he was found to have right MCA CVA with malignant edema and acute respiratory failure s/p intubation. He was admitted to [facility], s/p craniectomy 05/26/19. Course complicated by trach and PEG, PNA, right ICA dissection. [facility] consulted to assume care. Course further prolonged pending LTACH placement. 1. Right MCA CVA with Malignant Edema: found on imaging at OSH. CTA head/neck on admit with ADI occlusion with concern for dissection. CT head 05/26/19 with increased mass effect and increased midline shift. Craniectomy performed 05/26/[address] Rankin ([facility]). MRA neck 05/27/19 with right ICA dissection. TTE 05/26/19 with EF 60-65%, negative bubble study. [facility] followed. Continue Aspirin and Atorvastatin. 2. Abnormal Urine: noted to be dark brown 06/21/19 with grossly abnormal UA. CT A&P 06/22/19 with mild obstructive uropathy on the left side and small intrarenal non-obstructing stones BL. Urine cytology 06/22/2019 negative for high-grade urothelial carcinoma, noted chronic inflammation. Urine culture 06/22/2019 negative. Urology followed. Continue outpt f/u with Dr. Lind. 3. Acute Hypoxic Respiratory Failure: secondary to CVA and malignant edema. Remained encephalopathic and hypoxic, s/p trach 06/09/19. Weaned off vent and decannulated 07/03/19. Resolved. 4. Left Hip Myositis: Noted to have severe left hip pain with movement. Left Hip Xray 06/29/19 unremarkable. Left Hip Joint Aspiration 06/30/19 a dry tap. Left Hip MRI 07/01/19 demonstrated complex, heterogeneous, rim enhancing collection measuring 1.6 x 3.7 cm within the left gluteus medius muscle with surrounding myositis. Ortho and VIR followed; per VIR imaging diffuse inflammation and nothing to aspirate. ID consulted; at this time no abx indicated. Blood Cultures x 2 07/02/19 NGTD. Supportive care with pain control. Per Ortho if pain doesn't improve within several days consider repeat MRI to eval myositis. Ordered repeat MRI in setting of ongoing pain and uptrending WBC. COMPARISON: Left hip MRI performed on 07/01/2019. TECHNIQUE: Multiplanar, multisequence imaging of the left hip without IV contrast. FINDINGS: There is persistent diffuse myositis involving the left gluteus, obturator internus, piriformis and quadratus femoris muscles, also involving the left adductor and obturator externus muscles. Similar distribution of muscle edema was demonstrated on the MRI 07/01/2019. The etiology of the myositis remains concerning for an infectious etiology given leukocytosis. Please correlate for IVDA. Less likely rhabdomyolysis. There remains a small fluid collection in the soft tissues/gluteus musculature posterior to the left acetabulum measuring approximately 2 x 0.6 cm which remains concerning for a small infected collection given the prominent surrounding myositis. However, the fluid collection is small. Please see image 21 and 22 axial STIR images of the pelvis. Small hematoma would be considered unlikely given persistence of the myositis. Persistent moderate sized left hip joint effusion remains. However, there is no evidence of osteomyelitis in the left hip. No osseous erosions or bone marrow edema. No evidence of acute fracture or neoplastic change. The visualized sacrum and SI joints appear unremarkable. The right hip joint appears within normal limits. No tear of the hamstring, rectus femoris or iliopsoas tendons. Persistent small amount of fluid in the left iliopsoas bursa seen. The pubic symphysis is intact. There is also mild dorsal bilateral paraspinal muscle edema in the lower lumbar spine region, also unchanged. Advanced discogenic narrowing at L5-S1 redemonstrated. IMPRESSION: 1. There is persistent diffuse myositis involving the left gluteus, obturator internus, piriformis and quadratus femoris muscles, also involving the left adductor and obturator externus muscles. Similar distribution of muscle edema was demonstrated on the MRI 07/01/2019. The etiology of the myositis remains concerning for an infectious etiology given leukocytosis. Please correlate for IVDA. Less likely rhabdomyolysis. 2. There remains a small fluid collection in the soft tissues/gluteus musculature posterior to the left acetabulum measuring approximately 2 x 0.6 cm which remains concerning for a small infected collection given the prominent surrounding myositis. However, the fluid collection is small. Please see image 21 and 22 axial STIR images of the pelvis. Small hematoma would be considered unlikely given persistence and extent of multi muscle myositis. 3. Persistent moderate sized left hip joint effusion remains. However, there is no evidence of osteomyelitis in the left hip. No osseous erosions or bone marrow edema. Please correlate with laboratory analysis of the left hip aspiration. 4. Persistent small amount of fluid in the left iliopsoas bursa seen. PD/trn Workstation ID: [id number] [facility] XR MODIFIED BARIUM SWALLOWon 07-09-2019 EXAMINATION: XR BELA FIED BARIUM SWALLOW HISTORY: dsyphagia Dx: I77.71 (Carotid artery dissection (HCC)) Injury/Trauma or Illness?:Illness/Other How long have you had these symptoms (acute/chronic)?:Unknown CONTRAST: BARIUM SULFATE 40 % (W/V), 30% (W/W) ORAL PASTE - 1 Dose, BARIUM SULFATE 40 % (W/V), 30 % (W/W) ORAL SUSPENSION - 1 Dose, BARIUM SULFATE 40 % (W/V), 29% (W/W) ORAL SUSPENSION - 1 Dose, BARIUM SULFATE 40 % (W/V) ORAL POWDER - 1 Dose, FLUOROSCOPY DOSE: Flouro Dose in Ka,r mGy: 38.72. TECHNIQUE: Modified barium swallow performed with Speech Therapy. Single fluoroscopic image obtained. FINDINGS: The prevertebral soft tissues are normal. Oral Phase: Mild to moderately impaired. Pharyngeal Phase: Mildly impaired. Esophageal Phase: Within functional limits. Penetration occurred with thin liquid and nectar. Aspiration occurred with nectar. [facility] Interface, Rad In Fu ji Speechq - 07/09/2019 2:28 PM EST EXAMINATION: XR MODIFIED BARIUM SWALLOW HISTORY: dsyphagia Dx: I77.71 (Carotid artery dissection (HCC)) Injury/Trauma or Illness?:Illness/Other How long have you had these symptoms (acute/chronic)?:Unknown CONTRAST: BARIUM SULFATE 40 % (W/V), 30% (W/W) ORAL PASTE - 1 Dose, BARIUM SULFATE 40 % (W/V), 30 % (W/W) ORAL SUSPENSION - 1 Dose, BARIUM SULFATE 40 % (W/V), 29% (W/W) ORAL SUSPENSION - 1 Dose, BARIUM SULFATE 40 % (W/V) ORAL POWDER - 1 Dose, FLUOROSCOPY DOSE: Flouro Dose in Ka,r mGy: 38.72. TECHNIQUE: Modified barium swallow performed with Speech Therapy. Single fluoroscopic image obtained. FINDINGS: The prevertebral soft tissues are normal. Oral Phase: Mild to moderately impaired. Pharyngeal Phase: Mildly impaired. Esophageal Phase: Within functional limits. Penetration occurred with thin liquid and nectar. Aspiration occurred with nectar. IMPRESSION: Impaired phases of swallowing with penetration and aspiration of nectar. Please see Speech Therapy recommendations. JW/lab Workstation ID: [id number] [facility] Impaired phases of swallowing with penetration and aspiration of nectar. Please see Speech Therapy recommendations. J/lab Workstation ID: [id number] [facility] Basic Metabolic Panelon Anion gap [Moles/Vol] 15 mmol/L 10 - 2 0 mmol/L [facility] Calcium [Mass/Vol] 9.1 mg/dL 8.4 - 10. 2 mg/dL [facility] Chloride [Moles/Vol] 97 mmol/L Low 98 - 10 8 mmol/L [facility] Creatinine [Mass/Vol] 0.58 mg/dL 0.5 - 1.3 mg/dL [facility] GFR/1.73 sq M.predicted CKD-EPI (S/P/Bld) [Vol rate/Area] 122 >=60 mL/min/1.7 3 m2 [facility] Glucose [Mass/Vol] 130 mg/dL High 65 - 99 mg/dL [facility] HCO3 [Moles/Vol] 27 mmol/L 21 - 32 mmol/L [facility] Interpretation and review of laboratory results Abnormal [facility] Potassium [Moles/Vol] 4.1 mmol/L 3.5 - 5.1 mmol/L [facility] Sodium [Moles/Vol] 135 mmol/L 135 - 145 mmol/L [facility] Urea nitrogen [Mass/Vol] 27 mg/dL High 8 - 25 mg/dL [facility] Urea nitrogen/Creatinine [Mass ratio] 46.6 mg/mg High [facility] The eGFR should be u sed for monitoring renal function only and not for medication dosing. [facility] Imm/Pathon 07-07-2019 Bacteria identified Cx Nom (Bld) No Growth After 5 Days [facility] BODY FLUID AEROBIC CULTUREon 07-05-2019 Bacteria identified Aer cx Nom (Unsp spec) No Growth After 5 Days [facility] Microscopic observation Gram stain Nom (Unsp spec) No Organisms Seen [facility] Microscopic observation Gram stain Nom (Unsp spec) Few RBC [facility] Microscopic observation Gram stain Nom (Unsp spec) Rare WBC [facility] Body Fluid Anaerobic Culture on 07-05-2019 Bacteria identified Anaer cx Nom (Unsp spec) No Anaerobic Growth at 5 Days [facility] POC Glucoseon 07-04-2019 Glucose [Mass/Vol] 117 mg/dL High 65 - 99 mg/dL [facility] Interpretation and review of laboratory results Abnormal [facility] CBCon 07-03-2019 Erythrocyte distribution width (RBC) [Entitic vol] 15.4 % High 11.6 - 14.8 % [facility] Hematocrit (Bld) [Volume fraction] 31.8 % Low 41 - 53 % [facility] Hemoglobin (Bld) [Mass/Vol] 10.3 g/dL Low 13.5 - 17.5 g/dL [facility] Interpretation and review of laboratory results Abnormal [facility] MCH (RBC) [Entitic mass] 27.8 pg 26 - 34 pg [facility] MCHC (RBC) [Mass/Vol] 32.4 g/dL 31 - 3 7 g/dL [facility] MCV (RBC) [Entitic vol] 85.7 fL 80 - 100 fL [facility] Nucleated RBC (Bld) [#/Vol] 0.00 10*3/uL [facility] Nucleated RBC/100 WBC (Bld) [Ratio] 0.0 % [facility] Platelet mean volume (Bld) [Entitic vol] 8.4 fL Low 9 - 15.5 fL [facility] Platelets (Bld) [#/Vol] 291 10*3/uL [facility] RBC (Bld) [#/Vol] 3.71 10*6/uL Low [facility] ealth WBC (Bld) [#/Vol] 14.94 10*3/uL High [facility] Chem 7on 07-03-2019 Anion gap [Moles/Vol] 15 mmol/L 10 - 2 0 mmol/L [facility] Chloride [Moles/Vol] 96 mmol/L Low 98 - 10 8 mmol/L [facility] Creatinine [Mass/Vol] 0.57 mg/dL 0.5 - 1.3 mg/dL [facility] GFR/1.73 sq M.predicted CKD-EPI (S/P/Bld) [Vol rate/Area] 123 >=60 mL/min/1.7 3 m2 [facility] Glucose [Mass/Vol] 119 mg/dL High 65 - 99 mg/dL [facility] HCO3 [Moles/Vol] 25 mmol/L 21 - 32 mmol/L [facility] Interpretation and review of laboratory results Abnormal [facility] Potassium [Moles/Vol] 4.2 mmol/L 3.5 - 5.1 mmol/L [facility] Sodium [Moles/Vol] 132 mmol/L Low 135 - 145 mmol/L [facility] Urea nitrogen [Mass/Vol] 27 mg/dL High 8 - 25 mg/dL [facility] Urea nitrogen/Creatinine [Mass ratio] 47.4 mg/mg High [facility] The eGFR should be u sed for monitoring renal function only and not for medication dosing. [facility] CBCon 07-02-2019 Erythrocyte distribution width (RBC) [Entitic vol] 15.3 % High 11.6 - 14.8 % [facility] Hematocrit (Bld) [Volume fraction] 32.5 % Low 41 - 53 % [facility] Hemoglobin (Bld) [Mass/Vol] 10.4 g/dL Low 13.5 - 17.5 g/dL [facility] Interpretation and review of laboratory results Abnormal [facility] MCH (RBC) [Entitic mass] 27.6 pg 26 - 34 pg [facility] MCHC (RBC) [Mass/Vol] 32.0 g/dL 31 - 3 7 g/dL [facility] MCV (RBC) [Entitic vol] 86.2 fL 80 - 100 fL [facility] Nucleated RBC (Bld) [#/Vol] 0.00 10*3/uL [facility] Nucleated RBC/100 WBC (Bld) [Ratio] 0.0 % [facility] Platelet mean volume (Bld) [Entitic vol] 8.5 fL Low 9 - 15.5 fL [facility] Platelets (Bld) [#/Vol] 275 10*3/uL [facility] RBC (Bld) [#/Vol] 3.77 10*6/uL Low [facility] ealth WBC (Bld) [#/Vol] 12.45 10*3/uL High [facility] CRP, Inflammationon 07-02-20 19 CRP [Mass/Vol] 17.7 mg/L High 0 - 10 mg/L [facility] Interpretation and review of laboratory results Abnormal [facility] ECG 12-LEADon 07-02-2019 Atrial Rate 92 BPM [facility] P Eola 67 degrees [facility] P-R Interval 148 ms [facility] Q-T Interval 364 ms [facility] QRS Duration 94 ms [facility] QTC Calculation (Bezet) 450 ms [facility] R Eola 16 degrees [facility] T Eola 52 degrees [facility] Ventricular Rate 92 BPM [facility] th Normal sinus rhythm Normal ECG Confirmed by George Kaminski M.D. ([id number]) on 07/02/2019 7:18:18 AM [facility] Sedimentation Rateon 019 ESR (Bld) [Velocity] 58 mm/h [facility] Interpretation and review of laboratory results Abnormal [facility] MR Hip Left With And Without Contraston 07-01-2019 1. There is a comple x, heterogeneous, rim enhancing collection measuring 1.6 x 3.7 cm within the left gluteus medius muscle posterior to the left acetabulum with a large amount of enhancement of the adjacent muscle and the left piriformis muscle in this region. Differential diagnostic considerations for this collection primarily include an intramuscular abscess or less likely an intramuscular hematoma. There is a probable surrounding myositis of the gluteus medius muscle and the left piriformis muscle. 2. There is a large joint effusion of the left hip with an enhancing synovitis. However, there is no MRI evidence of osteomyelitis of the left hip. Correlation with the laboratory analysis of the recent left hip joint aspiration is recommended. 3. There is a large amount of edema like signal involving the musculature surrounding the left hip. Differential diagnostic considerations for this edema primarily include rhabdomyolysis or a myositis. ABELARDOR/barbaraw Workstation ID: [id number] [facility], Victoriano In Kanu ji Speechq - 07/01/2019 10:29 AM EST EXAMINATION: MRI LEFT HIP WITHOUT AND WITH CONTRAST 07/01/2019 HISTORY: Left hip pain. Elevated white blood cell count. Recent fluoroscopic guided aspiration of the left hip joint on 06/30/2019. Evaluate for abscess or osteomyelitis. COMPARISON STUDY: Radiographs of the pelvis and left hip 06/29/2019. TECHNIQUE: Multiplanar, multisequence MRI images of the pelvis and left hip were obtained prior to and following the intravenous administration of 17.5 mL of gadolinium (Dotarem). FINDINGS: The bone marrow signal intensity is age-appropriate. There is severe discogenic disease at the L5-S1 level. There is no evidence of avascular necrosis or fracture of either proximal femur. There is a large joint effusion of the left hip with an enhancing synovitis. However, no bone marrow edema like signal or abnormal enhancement is identified within the adjacent bones. There is a large amount of diffuse edema like signal involving the left piriformis muscle, the obturator internus muscle, the quadratus femoris muscle, the gluteus medius and gluteus minimus muscles, the iliopsoas muscle, the proximal portions of the vastus intermedius, vastus lateralis, tensor fascia bart muscle, and the proximal adductor musculature. Within the gluteus medius muscle posterior to the posterior left acetabulum there is an ovoid area of abnormal heterogeneous increased and intermediate T1/STIR signal intensity and there is moderate peripheral rim enhancement surrounding this finding. This collection measures approximately 1.6 x 3.7 cm in AP and transverse dimension as best seen on the axial T1 fat-saturated postcontrast images of the hips. There is a large amount of enhancement of the adjacent gluteus medius muscle and the left piriformis muscle in this region. There is a small amount of enhancing fluid in the iliopsoas bursa along the anterior aspect of the left hip. No fluid signal intensity collection is seen in the region of the greater trochanter. IMPRESSION: 1. There is a complex, heterogeneous, rim enhancing collection measuring 1.6 x 3.7 cm within the left gluteus medius muscle posterior to the left acetabulum with a large amount of enhancement of the adjacent muscle and the left piriformis muscle in this region. Differential diagnostic considerations for this collection primarily include an intramuscular abscess or less likely an intramuscular hematoma. There is a probable surrounding myositis of the gluteus medius muscle and the left piriformis muscle. 2. There is a large joint effusion of the left hip with an enhancing synovitis. However, there is no MRI evidence of osteomyelitis of the left hip. Correlation with the laboratory analysis of the recent left hip joint aspiration is recommended. 3. There is a large amount of edema like signal involving the musculature surrounding the left hip. Differential diagnostic considerations for this edema primarily include rhabdomyolysis or a myositis. DWR/jcw Workstation ID: [id number] [facility] EXAMINATION: MRI LEF T HIP WITHOUT AND WITH CONTRAST 07/01/2019 HISTORY: Left hip pain. Elevated white blood cell count. Recent fluoroscopic guided aspiration of the left hip joint on 06/30/2019. Evaluate for abscess or osteomyelitis. COMPARISON STUDY: Radiographs of the pelvis and left hip 06/29/2019. TECHNIQUE: Multiplanar, multisequence MRI images of the pelvis and left hip were obtained prior to and following the intravenous administration of 17.5 mL of gadolinium (Dotarem). FINDINGS: The bone marrow signal intensity is age-appropriate. There is severe discogenic disease at the L5-S1 level. There is no evidence of avascular necrosis or fracture of either proximal femur. There is a large joint effusion of the left hip with an enhancing synovitis. However, no bone marrow edema like signal or abnormal enhancement is identified within the adjacent bones. There is a large amount of diffuse edema like signal involving the left piriformis muscle, the obturator internus muscle, the quadratus femoris muscle, the gluteus medius and gluteus minimus muscles, the iliopsoas muscle, the proximal portions of the vastus intermedius, vastus lateralis, tensor fascia bart muscle, and the proximal adductor musculature. Within the gluteus medius muscle posterior to the posterior left acetabulum there is an ovoid area of abnormal heterogeneous increased and intermediate T1/STIR signal intensity and there is moderate peripheral rim enhancement surrounding this finding. This collection measures approximately 1.6 x 3.7 cm in AP and transverse dimension as best seen on the axial T1 fat-saturated postcontrast images of the hips. There is a large amount of enhancement of the adjacent gluteus medius muscle and the left piriformis muscle in this region. There is a small amount of enhancing fluid in the iliopsoas bursa along the anterior aspect of the left hip. No fluid signal intensity collection is seen in the region of the greater trochanter. [facility] POC Creatinineon 07-01-2019 Creatinine [Mass/Vol] 0.7 mg/dL 0.5 - 1.3 mg/dL [facility] Interpretation and review of laboratory results Normal [facility] CBC WITH AUTO DIFFERENTIALon 06-30-2019 Basophils (Bld) [#/Vol] 0.08 10*3/uL [facility] Basophils/100 WBC (Bld) 0.5 % [facility] Eosinophils (Bld) [#/Vol] 0.29 10*3/uL [facility] Eosinophils/100 WBC (Bld) 1.7 % [facility] Erythrocyte distribution width (RBC) [Entitic vol] 14.6 % 11.6 - 14.8 % [facility] Hematocrit (Bld) [Volume fraction] 33.6 % Low 41 - 53 % [facility] Hemoglobin (Bld) [Mass/Vol] 10.7 g/dL Low 13.5 - 17.5 g/dL [facility] Immature granulocytes (Bld) [#/Vol] 0.14 10*3/uL [facility] Immature granulocytes/100 WBC (Bld) 0.80 % [facility] Comment on above: The IG parameter is the percentage of metamyelocytes, myelocytes, and promyelocytes. Interpretation and review of laboratory results Abnormal [facility] Lymphocytes (Bld) [#/Vol] 1.83 10*3/uL [facility] Lymphocytes/100 WBC (Bld) 10.9 % [facility] MCH (RBC) [Entitic mass] 27.9 pg 26 - 34 pg [facility] MCHC (RBC) [Mass/Vol] 31.8 g/dL 31 - 3 7 g/dL [facility] MCV (RBC) [Entitic vol] 87.7 fL 80 - 100 fL [facility] Monocytes (Bld) [#/Vol] 0.67 10*3/uL [facility] Monocytes/100 WBC (Bld) 4.0 % [facility] Neutrophils (Bld) [#/Vol] 13.79 10*3/uL High [facility] Neutrophils/100 WBC (Bld) 82.1 % [facility] Nucleated RBC (Bld) [#/Vol] 0.00 10*3/uL [facility] Nucleated RBC/100 WBC (Bld) [Ratio] 0.0 % [facility] Platelet mean volume (Bld) [Entitic vol] 8.5 fL Low 9 - 15.5 fL [facility] Platelets (Bld) [#/Vol] 265 10*3/uL [facility] RBC (Bld) [#/Vol] 3.83 10*6/uL Low [facility] ealth WBC (Bld) [#/Vol] 16.80 10*3/uL High [facility] Synovial Fluid Analysison Appearance (Syn fld) Hazy Abnormal Clear [facility] Color (Syn fld) St[facility] Interpretation and review of laboratory results Abnormal [facility] Lymphocytes/100 WBC Auto (Syn fld) 34 % High 0 - 0 % [facility] Monocytes/100 WBC (Syn fld) 40 % High 0 - 0 % [facility] Neutrophils/100 WBC (Syn fld) 8 % 0 - 25 % [facility] Nucleated cells Manual cnt (Syn fld) [#/Vol] 55 [facility] Comment on above: WBC/Nuc cell count i ncludes mesothelial and other non-WBC nucleated cells as reflected in the differential. Protein (Syn fld) [Mass/Vol] <2.5 0 - 3 g/dL [facility] Pyrophosphate crystals LM Ql (Syn fld) Negative Negative [facility] RBC Auto (Syn fld) [#/Vol] 463 High [facility] Synovial lining cells/100 cells (Syn fld) 18 % High 0 - 0 % [facility] Comment on above: Lining cells and/or macrophages. Urate crystals LM Ql (Syn fld) Negative Negative [facility] XR Aspiration Injection Larg e Joint Lefton 06-30-2019 Interface, Rad In Fu ji Speechq - 06/30/2019 1:20 PM EST EXAMINATION: FLUOROSCOPIC-GUIDED ASPIRATION OF THE LEFT HIP JOINT 06/30/2019 HISTORY: ORDERING SYSTEM PROVIDED HISTORY: increasing pain today to the left hip, TECHNOLOGIST PROVIDED HISTORY: Illness/Other Reason for exam: increasing pain today to the left hip, aspiration to r/o infection Encounter Type: Initial Additional signs and symptoms: Fluoro dose in mGy: 7.5 ORDERING SYSTEM PROVIDED DIAGNOSIS CODES: I77.71 Carotid artery dissection (HCC) I63.9 Cerebrovascular accident (CVA), unspecified mechanism (HCC) J96.90 Respiratory failure, unspecified chronicity, unspecified whether with hypoxia or hypercapnia (HCC) I63.231 Cerebrovascular accident (CVA) due to occlusion of right carotid artery (HCC) R13.10 Dysphagia, unspecified type I63.031 Cerebrovascular accident (CVA) due to thrombosis of right carotid artery (HCC) COMPARISON: Radiographs of the pelvis and left hip 06/29/2019. TECHNIQUE: Fluoro dose in Ka,r mGy: 7.5. After explaining the risks, benefits and options of the procedure to the patient and his who is the patient's medical power of research attorney, written informed consent was obtained. A pause and confirm was then performed. The anterior aspect of the left hip was then prepped and draped in the usual sterile fashion and the skin was anesthetized with 1% lidocaine. Under fluoroscopic guidance, an 18-gauge spinal needle was passed percutaneously to the inferomedial aspect of the left femoral neck. An attempt to aspirate fluid from the joint was made, but no fluid could be aspirated. Therefore, 8 mL of sterile saline was administered into the hip joint and then approximately 2 mL of clear, yellow fluid was reaspirated from the hip joint. The patient tolerated the procedure well and no immediate complication was observed. The fluid aspirated from the left hip was placed in the appropriate red-top tube and purple-top tube and sent to the laboratory for further analysis per the referring physician's request. FINDINGS: There is extension of contrast into the left hip joint confirming needle tip placement within the joint. IMPRESSION: Technically successful fluoroscopic-guided aspiration of the left hip joint. [facility] Workstation ID: [id number] [facility] EXAMINATION: FLUOROSCOPIC-GUIDED ASPIRATION OF THE LEFT HIP JOINT 06/30/2019 HISTORY: ORDERING SYSTEM PROVIDED HISTORY: increasing pain today to the left hip, TECHNOLOGIST PROVIDED HISTORY: Illness/Other Reason for exam: increasing pain today to the left hip, aspiration to r/o infection Encounter Type: Initial Additional signs and symptoms: Fluoro dose in mGy: 7.5 ORDERING SYSTEM PROVIDED DIAGNOSIS CODES: I77.71 Carotid artery dissection (HCC) I63.9 Cerebrovascular accident (CVA), unspecified mechanism (HCC) J96.90 Respiratory failure, unspecified chronicity, unspecified whether with hypoxia or hypercapnia (HCC) I63.231 Cerebrovascular accident (CVA) due to occlusion of right carotid artery (HCC) R13.10 Dysphagia, unspecified type I63.031 Cerebrovascular accident (CVA) due to thrombosis of right carotid artery (HCC) COMPARISON: Radiographs of the pelvis and left hip 06/29/2019. TECHNIQUE: Fluoro dose in Ka,r mGy: 7.5. After explaining the risks, benefits and options of the procedure to the patient and his who is the patient's medical power of research attorney, written informed consent was obtained. A pause and confirm was then performed. The anterior aspect of the left hip was then prepped and draped in the usual sterile fashion and the skin was anesthetized with 1% lidocaine. Under fluoroscopic guidance, an 18-gauge spinal needle was passed percutaneously to the inferomedial aspect of the left femoral neck. An attempt to aspirate fluid from the joint was made, but no fluid could be aspirated. Therefore, 8 mL of sterile saline was administered into the hip joint and then approximately 2 mL of clear, yellow fluid was reaspirated from the hip joint. The patient tolerated the procedure well and no immediate complication was observed. The fluid aspirated from the left hip was placed in the appropriate red-top tube and purple-top tube and sent to the laboratory for further analysis per the referring physician's request. FINDINGS: There is extension of contrast into the left hip joint confirming needle tip placement within the joint. [facility] Technically successf ul fluoroscopic-guided aspiration of the left hip joint. [facility] Workstation ID: [id number] [facility] CBC WITH AUTO DIFFERENTIALon 06-29-2019 Basophils (Bld) [#/Vol] 0.06 10*3/uL [facility] Basophils/100 WBC (Bld) 0.5 % [facility] Eosinophils (Bld) [#/Vol] 0.36 10*3/uL [facility] Eosinophils/100 WBC (Bld) 3.1 % [facility] Erythrocyte distribution width (RBC) [Entitic vol] 14.5 % 11.6 - 14.8 % [facility] Hematocrit (Bld) [Volume fraction] 32.6 % Low 41 - 53 % [facility] Hemoglobin (Bld) [Mass/Vol] 10.4 g/dL Low 13.5 - 17.5 g/dL [facility] Immature granulocytes (Bld) [#/Vol] 0.06 10*3/uL [facility] Immature granulocytes/100 WBC (Bld) 0.50 % [facility] Comment on above: The IG parameter is the percentage of metamyelocytes, myelocytes, and promyelocytes. Interpretation and review of laboratory results Abnormal [facility] [facility] Lymphocytes (Bld) [#/Vol] 2.27 10*3/uL [facility] Lymphocytes/100 WBC (Bld) 19.4 % [facility] MCH (RBC) [Entitic mass] 27.4 pg 26 - 34 pg [facility] MCHC (RBC) [Mass/Vol] 31.9 g/dL 31 - 3 7 g/dL [facility] MCV (RBC) [Entitic vol] 86.0 fL 80 - 100 fL [facility] Monocytes (Bld) [#/Vol] 0.67 10*3/uL [facility] Monocytes/100 WBC (Bld) 5.7 % [facility] Neutrophils (Bld) [#/Vol] 8.31 10*3/uL High [facility] Neutrophils/100 WBC (Bld) 70.8 % [facility] Nucleated RBC (Bld) [#/Vol] 0.00 10*3/uL [facility] Nucleated RBC/100 WBC (Bld) [Ratio] 0.0 % [facility] Platelet mean volume (Bld) [Entitic vol] 8.4 fL Low 9 - 15.5 fL [facility] Platelets (Bld) [#/Vol] 286 10*3/uL [facility] RBC (Bld) [#/Vol] 3.79 10*6/uL Low [facility] ealth WBC (Bld) [#/Vol] 11.73 10*3/uL [facility] CRP, Inflammationon 06-29-20 19 CRP [Mass/Vol] 13.1 mg/L High 0 - 10 mg/L [facility] Interpretation and review of laboratory results Abnormal [facility] Sedimentation Rateon 019 ESR (Bld) [Velocity] 46 mm/h High [facility] Interpretation and review of laboratory results Abnormal [facility] XR Hip Left With Pelvis 2-3 Views (Routine)on 06-29-2019 EXAMINATION: XR HIP LEFT WITH PELVIS 2-3 VIEWS (ROUTINE) 06/29/2019 1:06 pm HISTORY: ORDERING SYSTEM PROVIDED HISTORY: severe left hip pain with movement., TECHNOLOGIST PROVIDED HISTORY: Illness/Other Reason for exam: severe left hip pain with movement. Cancer History: Surgery, RadiationHistory: Encounter Type: Initial Additional signs and symptoms: ORDERING SYSTEM PROVIDED DIAGNOSIS CODES: I77.71 Carotid artery dissection (HCC) I63.9 Cerebrovascular accident (CVA), unspecified mechanism (HCC) J96.90 Respiratory failure, unspecified chronicity, unspecified whether with hypoxia or hypercapnia (HCC) I63.231 Cerebrovascular accident (CVA) due to occlusion of right carotid artery (HCC) R13.10 Dysphagia, unspecified type I63.031 Cerebrovascular accident (CVA) due to thrombosis of right carotid artery (HCC) COMPARISON: CT of the abdomen and pelvis without contrast 06/22/2019. FINDINGS: Supine AP pelvis as well as frontal and frogleg views of the left hip for a total of 3 images were obtained. Lower lumbar spondylitic changes with disc space narrowing and endplate sclerosis identified at L5-S1 level noted. Small volume of residual contrast material within the left colon and its diverticula. Subcentimeter pelvic phleboliths are identified. No acute fracture or dislocation noted. Minor arthritic changes about the superior aspect of the SI joints noted. The left hip joint appears to be intact and within normal limits otherwise. [facility] Interface, Rad In Fu ji Speechq - 06/29/2019 4:01 PM EST EXAMINATION: XR HIP LEFT WITH PELVIS 2-3 VIEWS (ROUTINE) 06/29/2019 1:06 pm HISTORY: ORDERING SYSTEM PROVIDED HISTORY: severe left hip pain with movement., TECHNOLOGIST PROVIDED HISTORY: Illness/Other Reason for exam: severe left hip pain with movement. Cancer History: Surgery, RadiationHistory: Encounter Type: Initial Additional signs and symptoms: ORDERING SYSTEM PROVIDED DIAGNOSIS CODES: I77.71 Carotid artery dissection (HCC) I63.9 Cerebrovascular accident (CVA), unspecified mechanism (HCC) J96.90 Respiratory failure, unspecified chronicity, unspecified whether with hypoxia or hypercapnia (HCC) I63.231 Cerebrovascular accident (CVA) due to occlusion of right carotid artery (HCC) R13.10 Dysphagia, unspecified type I63.031 Cerebrovascular accident (CVA) due to thrombosis of right carotid artery (HCC) COMPARISON: CT of the abdomen and pelvis without contrast 06/22/2019. FINDINGS: Supine AP pelvis as well as frontal and frogleg views of the left hip for a total of 3 images were obtained. Lower lumbar spondylitic changes with disc space narrowing and endplate sclerosis identified at L5-S1 level noted. Small volume of residual contrast material within the left colon and its diverticula. Subcentimeter pelvic phleboliths are identified. No acute fracture or dislocation noted. Minor arthritic changes about the superior aspect of the SI joints noted. The left hip joint appears to be intact and within normal limits otherwise. IMPRESSION: 1. Lower lumbar degenerative changes again identified at L5-S1. Minor osteoarthritic changes about both SI joints again noted. 2. No acute fracture or dislocation. Hip joints appear otherwise unremarkable. [employer] Workstation ID: [id number] [facility] 1. Lower lumbar degenerative changes again identified at L5-S1. Minor osteoarthritic changes about both SI joints again noted. 2. No acute fracture or dislocation. Hip joints appear otherwise unremarkable. [employer] Workstation ID: [id number] [facility] XR Chest 1 Viewon 06-28-2019 No interval change. Workstation ID: [id number] [facility] EXAMINATION: XR CHES T PA/AP HISTORY: partial decannulation Injury/Trauma or Illness?:Illness/Other How long have you had these symptoms (acute/chronic)?:Unknown Reason for exam?:partial decannulation History of cancer?: Surgeries, chemotherapy, or radiation?: I77.71 Carotid artery dissection (HCC) COMPARISON: June 18, 2019 TECHNIQUE: Single AP radiograph of the chest was obtained. FINDINGS: Lungs are hypoinflated with crowding of the vasculature and atelectatic changes in the lung bases. Unchanged bronchial wall thickening. No rib fracture or pneumothorax. No effusion. Heart size normal. [facility] Interface, Rad In Fu ji Speechq - 06/28/2019 4:14 AM EST EXAMINATION: XR CHEST PA/AP HISTORY: partial decannulation Injury/Trauma or Illness?:Illness/Other How long have you had these symptoms (acute/chronic)?:Unknown Reason for exam?:partial decannulation History of cancer?: Surgeries, chemotherapy, or radiation?: I77.71 Carotid artery dissection (HCC) COMPARISON: June 18, 2019 TECHNIQUE: Single AP radiograph of the chest was obtained. FINDINGS: Lungs are hypoinflated with crowding of the vasculature and atelectatic changes in the lung bases. Unchanged bronchial wall thickening. No rib fracture or pneumothorax. No effusion. Heart size normal. IMPRESSION: No interval change. Workstation ID: [id number] [facility] XR MODIFIED BARIUM SWALLOWon 06-27-2019 EXAMINATION: XR SWAL LOWING FUNCTION STUDY WITH VIDEO HISTORY: ORDERING SYSTEM PROVIDED HISTORY: dysphagia, TECHNOLOGIST PROVIDED HISTORY: Illness/Other Reason for exam: dysphagia Encounter Type: Ongoing Additional signs and symptoms: Fluoro dose in mGy: 5.63 ORDERING SYSTEM PROVIDED DIAGNOSIS CODES: I77.71 Carotid artery dissection (HCC) I63.9 Cerebrovascular accident (CVA), unspecified mechanism (HCC) J96.90 Respiratory failure, unspecified chronicity, unspecified whether with hypoxia or hypercapnia (HCC) I63.231 Cerebrovascular accident (CVA) due to occlusion of right carotid artery (HCC) R13.10 Dysphagia, unspecified type I63.031 Cerebrovascular accident (CVA) due to thrombosis of right carotid artery (HCC) COMPARISON: None. TECHNIQUE: Fluoro Dose Ka,r mGy: Fluoro dose in Ka,r mGy: 5.63 Single spot film was obtained. Total fluoro time 0.98 minutes. FINDINGS: Fluoroscopic assistance was provided for speech pathologist, and the examination was recorded with videography. Patient was given multiple consistencies of barium. There was aspiration of the thin and suspected aspiration of nectar and honey consistencies. [facility] Interface, Rad In Fu ji Speechq - 06/27/2019 12:17 PM EST EXAMINATION: XR SWALLOWING FUNCTION STUDY WITH VIDEO HISTORY: ORDERING SYSTEM PROVIDED HISTORY: dysphagia, TECHNOLOGIST PROVIDED HISTORY: Illness/Other Reason for exam: dysphagia Encounter Type: Ongoing Additional signs and symptoms: Fluoro dose in mGy: 5.63 ORDERING SYSTEM PROVIDED DIAGNOSIS CODES: I77.71 Carotid artery dissection (HCC) I63.9 Cerebrovascular accident (CVA), unspecified mechanism (HCC) J96.90 Respiratory failure, unspecified chronicity, unspecified whether with hypoxia or hypercapnia (HCC) I63.231 Cerebrovascular accident (CVA) due to occlusion of right carotid artery (HCC) R13.10 Dysphagia, unspecified type I63.031 Cerebrovascular accident (CVA) due to thrombosis of right carotid artery (HCC) COMPARISON: None. TECHNIQUE: Fluoro Dose Ka,r mGy: Fluoro dose in Ka,r mGy: 5.63 Single spot film was obtained. Total fluoro time 0.98 minutes. FINDINGS: Fluoroscopic assistance was provided for speech pathologist, and the examination was recorded with videography. Patient was given multiple consistencies of barium. There was aspiration of the thin and suspected aspiration of nectar and honey consistencies. IMPRESSION: Laryngeal penetration and aspiration of thin, multiple consistencies. See speech pathology report for dietary recommendations. [employer] Workstation ID: [id number] [facility] Laryngeal penetratio n and aspiration of thin, multiple consistencies. See speech pathology report for dietary recommendations. [employer] Workstation ID: [id number] [facility] CBCon 06-26-2019 Erythrocyte distribution width (RBC) [Entitic vol] 14.2 % 11.6 - 14.8 % [facility] Hematocrit (Bld) [Volume fraction] 30.8 % Low 41 - 53 % [facility] Hemoglobin (Bld) [Mass/Vol] 9.8 g/dL Low 13.5 - 17.5 g/dL [facility] Interpretation and review of laboratory results Abnormal [facility] MCH (RBC) [Entitic mass] 27.8 pg 26 - 34 pg [facility] MCHC (RBC) [Mass/Vol] 31.8 g/dL 31 - 3 7 g/dL [facility] MCV (RBC) [Entitic vol] 87.5 fL 80 - 100 fL [facility] Nucleated RBC (Bld) [#/Vol] 0.00 10*3/uL [facility] Nucleated RBC/100 WBC (Bld) [Ratio] 0.0 % [facility] Platelet mean volume (Bld) [Entitic vol] 8.7 fL Low 9 - 15.5 fL [facility] Platelets (Bld) [#/Vol] 291 10*3/uL [facility] RBC (Bld) [#/Vol] 3.52 10*6/uL Low [facility] ealth WBC (Bld) [#/Vol] 14.30 10*3/uL High [facility] Chem 7on 06-26-2019 Anion gap [Moles/Vol] 14 mmol/L 10 - 2 0 mmol/L [facility] Chloride [Moles/Vol] 102 mmol/L 98 - 10 8 mmol/L [facility] Creatinine [Mass/Vol] 0.68 mg/dL 0.5 - 1.3 mg/dL [facility] GFR/1.73 sq M.predicted CKD-EPI (S/P/Bld) [Vol rate/Area] 115 >=60 mL/min/1.7 3 m2 [facility] Glucose [Mass/Vol] 124 mg/dL High 65 - 99 mg/dL [facility] HCO3 [Moles/Vol] 26 mmol/L 21 - 32 mmol/L [facility] Interpretation and review of laboratory results Abnormal [facility] Potassium [Moles/Vol] 4.1 mmol/L 3.5 - 5.1 mmol/L [facility] Sodium [Moles/Vol] 138 mmol/L 135 - 145 mmol/L [facility] Urea nitrogen [Mass/Vol] 39 mg/dL High 8 - 25 mg/dL [facility] Urea nitrogen/Creatinine [Mass ratio] 57.4 mg/mg High [facility] The eGFR should be u sed for monitoring renal function only and not for medication dosing. [facility] Basic Metabolic Panelon 06-07 Anion gap [Moles/Vol] 17 mmol/L 10 - 2 0 mmol/L [facility] Calcium [Mass/Vol] 10.1 mg/dL 8.4 - 10. 2 mg/dL [facility] Chloride [Moles/Vol] 105 mmol/L 98 - 10 8 mmol/L [facility] Creatinine [Mass/Vol] 0.94 mg/dL 0.5 - 1.3 mg/dL [facility] GFR/1.73 sq M.predicted CKD-EPI (S/P/Bld) [Vol rate/Area] 97 >=60 mL/min/1.7 3 m2 [facility] Glucose [Mass/Vol] 117 mg/dL High 65 - 99 mg/dL [facility] HCO3 [Moles/Vol] 25 mmol/L 21 - 32 mmol/L [facility] Interpretation and review of laboratory results Abnormal [facility] Potassium [Moles/Vol] 4.5 mmol/L 3.5 - 5.1 mmol/L [facility] Sodium [Moles/Vol] 142 mmol/L 135 - 145 mmol/L [facility] Urea nitrogen [Mass/Vol] 52 mg/dL High 8 - 25 mg/dL [facility] Urea nitrogen/Creatinine [Mass ratio] 55.3 mg/mg High [facility] The eGFR should be u sed for monitoring renal function only and not for medication dosing. [facility] Blood Culture #1on 9 Bacteria identified Cx Nom (Bld) No Growth [facility] 9 Bacteria identified Cx Nom (Bld) [facility] Erythrocyte distribution width (RBC) [Entitic vol] 14.3 % 11.6 - 14.8 % [facility] Hematocrit (Bld) [Volume fraction] 33.5 % Low 41 - 53 % [facility] Hemoglobin (Bld) [Mass/Vol] 10.2 g/dL Low 13.5 - 17.5 g/dL [facility] Interpretation and review of laboratory results Abnormal [facility] MCH (RBC) [Entitic mass] 27.9 pg 26 - 34 pg [facility] MCHC (RBC) [Mass/Vol] 30.4 g/dL Low 31 - 3 7 g/dL [facility] MCV (RBC) [Entitic vol] 91.5 fL 80 - 100 fL [facility] Nucleated RBC (Bld) [#/Vol] 0.00 10*3/uL [facility] Nucleated RBC/100 WBC (Bld) [Ratio] 0.0 % [facility] Platelet mean volume (Bld) [Entitic vol] 9.1 fL 9 - 15.5 fL [facility] Platelets (Bld) [#/Vol] 392 10*3/uL [facility] RBC (Bld) [#/Vol] 3.66 10*6/uL Low [facility] W[facility] (Bld) [#/Vol] 16.00 10*3/uL [facility] CT Abdomen Pelvis Without Co ntraston 06-23-2019 1. Mild obstructive uropathy on the left side. There is a very small stone that appears to have just passed into the bladder. Small intrarenal nonobstructing stones are present bilaterally as well. 2. Lower lobe pulmonary infiltrates could reflect atelectasis or pneumonia. These have improved since the earlier chest CT performed 2 weeks ago. 3. The patient has a PEG tube. [employer] Workstation ID: [id number] [facility] EXAMINATION: CT ABDO MEN PELVIS WITHOUT CONTRAST HISTORY: ORDERING SYSTEM PROVIDED HISTORY: Hematuria, unknown cause, TECHNOLOGIST PROVIDED HISTORY: Illness/Other Reason for exam: Hematuria, unknown cause Encounter Type: Unknown Additional signs and symptoms: Hematuria, unknown cause ORDERING SYSTEM PROVIDED DIAGNOSIS CODES: I77.71 Carotid artery dissection (HCC) I63.9 Cerebrovascular accident (CVA), unspecified mechanism ([facility]) J96.90 Respiratory failure, unspecified chronicity, unspecified whether with hypoxia or hypercapnia ([facility]) I63.231 Cerebrovascular accident (CVA) due to occlusion of right carotid artery ([facility]) R13.10 Dysphagia, unspecified type I63.031 Cerebrovascular accident (CVA) due to thrombosis of right carotid artery (HCC) COMPARISON: Chest CT 06/08/2019. TECHNIQUE: CT examination of the abdomen and pelvis without IV contrast. Coronal and sagittal reformations were performed. Dose reduction techniques were achieved by using automated exposure control and/or adjustment of mA and/or kV according to patient size and/or use of iterative reconstruction technique. FINDINGS: Consolidation is present in both lung bases, no significant pleural or pericardial fluid. In the abdomen, there is mild left-sided hydronephrosis and hydroureter. Nonobstructing punctate calculi are present in the lower pole of the left kidney as well as in the interpolar region of the right kidney. There is a very subtle hyperdensity within the bladder seen best on image 145 of sequence 3 that is likely reflective of a recently passed calculus adjacent to the left UVJ. There are currently no stones visible within the ureter. No bowel obstruction or inflammation. No evidence of pneumatosis or pneumoperitoneum. The patient has a PEG tube. No suspicious lytic or sclerotic osseous lesions. [facility], Rad In Fu ji Speechq - 06/23/2019 2:00 PM EST EXAMINATION: CT ABDOMEN PELVIS WITHOUT CONTRAST HISTORY: ORDERING SYSTEM PROVIDED HISTORY: Hematuria, unknown cause, TECHNOLOGIST PROVIDED HISTORY: Illness/Other Reason for exam: Hematuria, unknown cause Encounter Type: Unknown Additional signs and symptoms: Hematuria, unknown cause ORDERING SYSTEM PROVIDED DIAGNOSIS CODES: I77.71 Carotid artery dissection (HCC) I63.9 Cerebrovascular accident (CVA), unspecified mechanism (HCC) J96.90 Respiratory failure, unspecified chronicity, unspecified whether with hypoxia or hypercapnia (HCC) I63.231 Cerebrovascular accident (CVA) due to occlusion of right carotid artery (HCC) R13.10 Dysphagia, unspecified type I63.031 Cerebrovascular accident (CVA) due to thrombosis of right carotid artery (HCC) COMPARISON: Chest CT 06/08/2019. TECHNIQUE: CT examination of the abdomen and pelvis without IV contrast. Coronal and sagittal reformations were performed. Dose reduction techniques were achieved by using automated exposure control and/or adjustment of mA and/or kV according to patient size and/or use of iterative reconstruction technique. FINDINGS: Consolidation is present in both lung bases, no significant pleural or pericardial fluid. In the abdomen, there is mild left-sided hydronephrosis and hydroureter. Nonobstructing punctate calculi are present in the lower pole of the left kidney as well as in the interpolar region of the right kidney. There is a very subtle hyperdensity within the bladder seen best on image 145 of sequence 3 that is likely reflective of a recently passed calculus adjacent to the left UVJ. There are currently no stones visible within the ureter. No bowel obstruction or inflammation. No evidence of pneumatosis or pneumoperitoneum. The patient has a PEG tube. No suspicious lytic or sclerotic osseous lesions. IMPRESSION: 1. Mild obstructive uropathy on the left side. There is a very small stone that appears to have just passed into the bladder. Small intrarenal nonobstructing stones are present bilaterally as well. 2. Lower lobe pulmonary infiltrates could reflect atelectasis or pneumonia. These have improved since the earlier chest CT performed 2 weeks ago. 3. The patient has a PEG tube. [employer] Workstation ID: [id number] [facility] Case Report Medical Cytology Rep ort Case: [id number] Authorizing Provider: Alejandra Cuellar PA-C Collected: 06/22/2019 Ordering Location: [facility] Received: 06/22/2019 04:20 PM Hospital Medical Intermediate Pathologist: Elena Chan DO Specimen: Urine, Catheter [facility] Clinical information j7wzmMZmVMGdoKXtZxN yMDAwXG Gcf0ozOOIrePWkFvFvBxClJrBq PoyoeIYxLONxPcZej7aze778uO Rtr7zjVCNdHg4wIHNhhbBbCkOn BVIlQOAyHWJptBSzH561UREbUF jdg6roc8JjBIOwPMz7dF88QGEy wI3zqMFkOVmiylWwPjO6OGbqNY JzDdX3TISivREbQEWdS9sfOPDc VMvdCZDeIMqsjNKqXVO5mCqse8 A9tIHjuAZwiNawHcZqOfJlNFYZ z0FgRMp8cJsuU7XlGTVkSwB8gY OqISUnBOeuLYKpVTDlklW2qP77 CVggkpW0uTJkr6Nji39fv732aL 0whOUxIGU1VRRgJRSerOZpNZTx RHD0IVFgvUZeO2w4BuDbjINbT2 S9JgWzfVXrF5FxFIEdHF8nqnts JQN4VOuwTQKkAUH2NtHyURZnj7 GhgfgdNT6fR5Hng3V2sQ9jrJGx GCRnyNKaTdYlZONioz7erGHhLJ irOAN5ELIosaWui7Krw5frDiFw udFlO6igL6MnGSHeXCWuGDNsKv KzhfFos2Jxw9ShyZRwiEl3p9ab MYKeJUYjdFlvp6wnTTA0DWBoW5 S4oJAoi1gmSVgwJQBvlBT9mppp RInxFGCnftE3muprJAwwFIThsS U4omB4IPFgvFVcY3CyqG0iPJIf PUdsDKElabc7WrTjRl9seKEciB Ixs9WhmLDoOAycS73ki956CUXh aiTnR2kwhNIsbusbaTEbxkzwSL tzbaC7MLQnhsVapQqcdS8dVqBl PtIzJLikZD1gAMNsN7qryQUaEC LkNWBwD9hbRjMzhU9ycEgjITpe myOcDC9kYAAwnxONe71oJRIcqp 0= [facility] Interpretation Specimen A Negative for high-grade urothelial carcinoma Chronic inflammation RBC's [facility] Comment on above: Reference: Chau GA, Kaley EM, Denis R, et al: The Mey System for Reporting Urinary Cytology: The Quest to Develop a Standardized Terminology. Acta Cytologica 2016;60:185-197. Pathology report gross observation Narrative b4upmAXgLNMkwPQdFxNiAYGeHD Wsu4rvQAXmhINeHqLxJyNoItTp OwiagFUuGTRpDbDxh6tsa313pL Hhj9igUYDlMqH0cZOwAKDgcXZp I786BKLoQOaqi4ymh0KhXBWfxN Eri8I2ANAPycqxgVm0yVakF11s k9O2LhevU3cwUHDxRCcuTTBqWF noiMTgFKF0VQBnDBQ2MYezlaFi miO4QMwbqSOmUsX1BOh0d5pauE siNFGyAUQ5g2kfUBvyvgS8YZ8e dv8gyCc6g0gdxkEbCPYjDQRnpI JRZRAqN1UvtHtkFu9imAr8bPgk AaqhTRJ5Kmk1HO3iib28ivd8fN apXFKgzhqiKxL4IVxtQIZzapfa EVe1FNaeVZDcdUqzUFkqDZKfee xcALyxKBMvmGM8WFLmmNFoG1Mv UPDbXSvjDQZivjx6TsDcLd0lfF MnoPMcfx5vea81QGD7v4EezMcb RIE6SAM4BtLxWq4aiWHsYJMcII FruGDuGLMlSF4myEXmFLZgnM0k cmxjXHBnYnJkcmhlYWRccGdicm ZsCo7csWkpTRJ4QLdfH4kbkO2f PbX8YIfpV9twzV6nLWf1WVqgoM B4SUXraX8zPL6rqxlgg9chNxBq XO1yttrgj8tgClKsRA2etmc8b8 pvCQA8RShbDVGuSuV1ltO6ZALn qXFoFHWmdAvrVAgjg308EZY3IU xzYmtwYWdlXHBnbmNvbnRccGdu ZGVjXHBsYWluXHBsYWluXGYwXG VhGsAzvYvcaGlbiD1fUfBbNsOx MFxwbGFpblxmMVxmczIwIDYwIG 9HXTVmc6OapWZiAKRaWzh5yOXe EDWNOH6ekLXqYHQoangbDOYjY5 SqK6rdIA4pLJWrP2Xmr2ifCpDm cjZgJLKgjHLqvSATS3GaIL3olc iqgNPxCs5ejPYuTLU4JxUQuNOn agOzJQRpTMK2mS0fqIV3DQfpw2 JlfIVkTY4uEcBfKAVNeGMlkDSh H8hqTma1YCDyBa5sUPIIf5d2xQ W3xvgcP5dlSBTtDALyxTWmTFZy gtSgkStrhN9oMrDpDnDpWPupeO HzrdsjEIuxkxU6FGtjnnphTDIn IPmhI5ynCtDdUFKkaEcrHJrii0 NoXGYxXGZzMjRccGFyfQ== [facility] Urine Aerobic Cultureon 06-07 Bacteria identified Aer cx Nom (Unsp spec) Three or more colony types; >10,000 CFU/mL mixture of normal urogenital microbiota. None predominant. Possible contamination. Suggest repeat if clinically indicated. [facility] Basic Metabolic Panelon 06-07 Anion gap [Moles/Vol] 16 mmol/L 10 - 2 0 mmol/L [facility] Calcium [Mass/Vol] 10.3 mg/dL High 8.4 - 10. 2 mg/dL [facility] Chloride [Moles/Vol] 104 mmol/L 98 - 10 8 mmol/L [facility] Creatinine [Mass/Vol] 1.13 mg/dL 0.5 - 1.3 mg/dL [facility] GFR/1.73 sq M.predicted CKD-EPI (S/P/Bld) [Vol rate/Area] 78 >=60 mL/min/1.7 3 m2 [facility] Glucose [Mass/Vol] 140 mg/dL High 65 - 99 mg/dL [facility] HCO3 [Moles/Vol] 26 mmol/L 21 - 32 mmol/L [facility] Interpretation and review of laboratory results Abnormal [facility] Potassium [Moles/Vol] 4.6 mmol/L 3.5 - 5.1 mmol/L [facility] Sodium [Moles/Vol] 141 mmol/L 135 - 145 mmol/L [facility] Urea nitrogen [Mass/Vol] 55 mg/dL High 8 - 25 mg/dL [facility] Urea nitrogen/Creatinine [Mass ratio] 48.7 mg/mg High [facility] The eGFR should be u sed for monitoring renal function only and not for medication dosing. [facility] CBCon 06-22-2019 Erythrocyte distribution width (RBC) [Entitic vol] 14.2 % 11.6 - 14.8 % [facility] Hematocrit (Bld) [Volume fraction] 34.0 % Low 41 - 53 % [facility] Hemoglobin (Bld) [Mass/Vol] 10.4 g/dL Low 13.5 - 17.5 g/dL [facility] Interpretation and review of laboratory results Abnormal [facility] MCH (RBC) [Entitic mass] 27.9 pg 26 - 34 pg [facility] MCHC (RBC) [Mass/Vol] 30.6 g/dL Low 31 - 3 7 g/dL [facility] MCV (RBC) [Entitic vol] 91.2 fL 80 - 100 fL [facility] Nucleated RBC (Bld) [#/Vol] 0.00 10*3/uL [facility] Nucleated RBC/100 WBC (Bld) [Ratio] 0.0 % [facility] Platelet mean volume (Bld) [Entitic vol] 8.8 fL Low 9 - 15.5 fL [facility] Platelets (Bld) [#/Vol] 425 10*3/uL High [facility] RBC (Bld) [#/Vol] 3.73 10*6/uL Low [facility] ealth WBC (Bld) [#/Vol] 17.76 10*3/uL [facility] URINALYSISon 06-21-2019 Bacteria Auto Ql (U) Few Abnormal None Se en /hpf [facility] Bilirubin Ql (U) Negative Negative [facility] Clarity Refractometry automated (U) Cloudy Abnormal Clear [facility] Color (U) Brown Abnormal Colorless, Yellow [facility] Glucose Auto test strip (U) [Mass/Vol] Negative Negative mg/dL [facility] Granular casts Computer assisted (U) [#/Area] [facility] Comment on above: 0 to 1 Hemoglobin Auto test strip Ql (U) Large Abnormal Negative [facility] Hyaline casts Auto (Urine sed) [#/Area] 0-2 0 - 2 /lpf [facility] Interpretation and review of laboratory results Abnormal [facility] Ketones (U) [Mass/Vol] Negative Negative mg/dL [facility] Leukocyte esterase Auto test strip Ql (U) Negative Negative [facility] Mucus Auto (Urine sed) [#/Area] Moderate Abnormal None Seen, Rare /lpf [facility] Nitrite Auto test strip Ql (U) Negative Negative [facility] pH (U) 5.0 [pH] [facility] Protein (U) [Mass/Vol] 100 Abnormal Negative mg/dL [facility] RBC Auto (Urine sed) [#/Area] >180 High [facility] Specific gravity (U) [Rel density] 1.028 High [facility] Urate crystals Computer assisted (U) [#/Area] Few Abnormal None Seen /hpf [facility] Urobilinogen (U) [Mass/Vol] <2.0 <2.0 mg/dL [facility] WBC Auto (Urine sed) [#/Area] 8 High [facility] Microscopic examinat ion is performed on all urinalysis samples and only positive findings are reported. The test for blood on the chemical analytic portion of urinalysis may also be positive due to hemoglobinuria and myoglobinuria and if red blood cells are present they are quantified by microscopic examination. [facility] CBCon 06-19-2019 Erythrocyte distribution width (RBC) [Entitic vol] 13.8 % 11.6 - 14.8 % [facility] Hematocrit (Bld) [Volume fraction] 32.2 % Low 41 - 53 % [facility] Hemoglobin (Bld) [Mass/Vol] 10.1 g/dL Low 13.5 - 17.5 g/dL [facility] Interpretation and review of laboratory results Abnormal [facility] MCH (RBC) [Entitic mass] 28.5 pg 26 - 34 pg [facility] MCHC (RBC) [Mass/Vol] 31.4 g/dL 31 - 3 7 g/dL [facility] MCV (RBC) [Entitic vol] 90.7 fL 80 - 100 fL [facility] Nucleated RBC (Bld) [#/Vol] 0.00 10*3/uL [facility] Nucleated RBC/100 WBC (Bld) [Ratio] 0.0 % [facility] Platelet mean volume (Bld) [Entitic vol] 8.8 fL Low 9 - 15.5 fL [facility] Platelets (Bld) [#/Vol] 631 10*3/uL High [facility] RBC (Bld) [#/Vol] 3.55 10*6/uL Low [facility] ealth WBC (Bld) [#/Vol] 17.08 10*3/uL [facility] Chem 7on 06-19-2019 Anion gap [Moles/Vol] 17 mmol/L 10 - 2 0 mmol/L [facility] Chloride [Moles/Vol] 102 mmol/L 98 - 10 8 mmol/L [facility] Creatinine [Mass/Vol] 0.66 mg/dL 0.5 - 1.3 mg/dL [facility] GFR/1.73 sq M.predicted CKD-EPI (S/P/Bld) [Vol rate/Area] 116 >=60 mL/min/1.7 3 m2 [facility] Glucose [Mass/Vol] 135 mg/dL High 65 - 99 mg/dL [facility] HCO3 [Moles/Vol] 25 mmol/L 21 - 32 mmol/L [facility] Interpretation and review of laboratory results Abnormal [facility] Potassium [Moles/Vol] 4.5 mmol/L 3.5 - 5.1 mmol/L [facility] Sodium [Moles/Vol] 139 mmol/L 135 - 145 mmol/L [facility] Urea nitrogen [Mass/Vol] 39 mg/dL High 8 - 25 mg/dL [facility] Urea nitrogen/Creatinine [Mass ratio] 59.1 mg/mg High [facility] The eGFR should be u sed for monitoring renal function only and not for medication dosing. [facility] Basic Metabolic Panelon 06-07 Anion gap [Moles/Vol] 15 mmol/L 10 - 2 0 mmol/L [facility] Calcium [Mass/Vol] 9.9 mg/dL 8.4 - 10. 2 mg/dL [facility] Chloride [Moles/Vol] 102 mmol/L 98 - 10 8 mmol/L [facility] Creatinine [Mass/Vol] 0.69 mg/dL 0.5 - 1.3 mg/dL [facility] GFR/1.73 sq M.predicted CKD-EPI (S/P/Bld) [Vol rate/Area] 114 >=60 mL/min/1.7 3 m2 [facility] Glucose [Mass/Vol] 146 mg/dL High 65 - 99 mg/dL [facility] HCO3 [Moles/Vol] 26 mmol/L 21 - 32 mmol/L [facility] Interpretation and review of laboratory results Abnormal [facility] Potassium [Moles/Vol] 4.4 mmol/L 3.5 - 5.1 mmol/L [facility] Sodium [Moles/Vol] 139 mmol/L 135 - 145 mmol/L [facility] Urea nitrogen [Mass/Vol] 39 mg/dL High 8 - 25 mg/dL [facility] Urea nitrogen/Creatinine [Mass ratio] 56.5 mg/mg High [facility] The eGFR should be u sed for monitoring renal function only and not for medication dosing. [facility] CBCon 06-18-2019 Erythrocyte distribution width (RBC) [Entitic vol] 13.9 % 11.6 - 14.8 % [facility] Hematocrit (Bld) [Volume fraction] 34.1 % Low 41 - 53 % [facility] Hemoglobin (Bld) [Mass/Vol] 10.6 g/dL Low 13.5 - 17.5 g/dL [facility] Interpretation and review of laboratory results Abnormal [facility] MCH (RBC) [Entitic mass] 28.3 pg 26 - 34 pg [facility] MCHC (RBC) [Mass/Vol] 31.1 g/dL 31 - 3 7 g/dL [facility] MCV (RBC) [Entitic vol] 90.9 fL 80 - 100 fL [facility] Nucleated RBC (Bld) [#/Vol] 0.00 10*3/uL [facility] Nucleated RBC/100 WBC (Bld) [Ratio] 0.0 % [facility] Platelet mean volume (Bld) [Entitic vol] 8.7 fL Low 9 - 15.5 fL [facility] Platelets (Bld) [#/Vol] 664 10*3/uL High [facility] RBC (Bld) [#/Vol] 3.75 10*6/uL Low [facility] ealth WBC (Bld) [#/Vol] 19.16 10*3/uL [facility] URINALYSISon 06-18-2019 Bacteria Auto Ql (U) Rare Abnormal None Se en /hpf [facility] Bilirubin Ql (U) Negative Negative [facility] Clarity Refractometry automated (U) Cloudy Abnormal Clear [facility] Color (U) Yellow Colorless, Yellow [facility] Epithelial cells.squamous Auto (Urine sed) [#/Area] <1 [facility] Glucose Auto test strip (U) [Mass/Vol] Negative Negative mg/dL [facility] Hemoglobin Auto test strip Ql (U) Small Abnormal Negative [facility] Interpretation and review of laboratory results Abnormal [facility] Ketones (U) [Mass/Vol] Negative Negative mg/dL [facility] Leukocyte esterase Auto test strip Ql (U) Negative Negative [facility] Mucus Auto (Urine sed) [#/Area] Rare None Seen, Rare /lpf [facility] Nitrite Auto test strip Ql (U) Negative Negative [facility] pH (U) 5.0 [pH] [facility] Protein (U) [Mass/Vol] Negative Negative mg/dL [facility] RBC Auto (Urine sed) [#/Area] 95 High [facility] Specific gravity (U) [Rel density] 1.028 High [facility] Urate crystals Computer assisted (U) [#/Area] Few Abnormal None Seen /hpf [facility] Urobilinogen (U) [Mass/Vol] 2.0 mg/dL Abnormal <2.0 [facility] WBC Auto (Urine sed) [#/Area] 4 [facility] Microscopic examinat ion is performed on all urinalysis samples and only positive findings are reported. The test for blood on the chemical analytic portion of urinalysis may also be positive due to hemoglobinuria and myoglobinuria and if red blood cells are present they are quantified by microscopic examination. [facility] XR Chest 1 Viewon 06-18-2019 EXAMINATION: XR CHES T PA/AP HISTORY: ORDERING SYSTEM PROVIDED HISTORY: rising leukocytosis, on trach, evaluate for PNA, TECHNOLOGIST PROVIDED HISTORY: Illness/Other Reason for exam: rising leukocytosis, on trach, evaluate for PNA Cancer History: Surgery, RadiationHistory: Encounter Type: Initial Additional signs and symptoms: unknown ORDERING SYSTEM PROVIDED DIAGNOSIS CODES: I77.71 Carotid artery dissection (HCC) I63.9 Cerebrovascular accident (CVA), unspecified mechanism (HCC) J96.90 Respiratory failure, unspecified chronicity, unspecified whether with hypoxia or hypercapnia (HCC) I63.231 Cerebrovascular accident (CVA) due to occlusion of right carotid artery (HCC) R13.10 Dysphagia, unspecified type I63.031 Cerebrovascular accident (CVA) due to thrombosis of right carotid artery (HCC) COMPARISON: 06/15/2019. FINDINGS: Tracheostomy tube is present. The patient is slightly rotated on this examination. Cardiomediastinal contour is stable. Central bronchial wall thickening with bronchiectasis particularly within the left lower lung. No focal consolidative process, pleural effusion or pneumothorax. Mild levoconvex curvature of the thoracic spine. Osseous structures are intact. [facility] Interface, Rad In Fu ji Speechq - 06/18/2019 8:45 PM EST EXAMINATION: XR CHEST PA/AP HISTORY: ORDERING SYSTEM PROVIDED HISTORY: rising leukocytosis, on trach, evaluate for PNA, TECHNOLOGIST PROVIDED HISTORY: Illness/Other Reason for exam: rising leukocytosis, on trach, evaluate for PNA Cancer History: Surgery, RadiationHistory: Encounter Type: Initial Additional signs and symptoms: unknown ORDERING SYSTEM PROVIDED DIAGNOSIS CODES: I77.71 Carotid artery dissection (HCC) I63.9 Cerebrovascular accident (CVA), unspecified mechanism (HCC) J96.90 Respiratory failure, unspecified chronicity, unspecified whether with hypoxia or hypercapnia (HCC) I63.231 Cerebrovascular accident (CVA) due to occlusion of right carotid artery (HCC) R13.10 Dysphagia, unspecified type I63.031 Cerebrovascular accident (CVA) due to thrombosis of right carotid artery (HCC) COMPARISON: 06/15/2019. FINDINGS: Tracheostomy tube is present. The patient is slightly rotated on this examination. Cardiomediastinal contour is stable. Central bronchial wall thickening with bronchiectasis particularly within the left lower lung. No focal consolidative process, pleural effusion or pneumothorax. Mild levoconvex curvature of the thoracic spine. Osseous structures are intact. IMPRESSION: 1. Central bronchial wall thickening with left lower lung bronchiectasis similar in appearance to the prior examination. Hazy left lower lung opacities have improved. No focal consolidative process. 2. Tracheostomy tube is present. [employer] Workstation ID: [id number] [facility] 1. Central bronchial wall thickening with left lower lung bronchiectasis similar in appearance to the prior examination. Hazy left lower lung opacities have improved. No focal consolidative process. 2. Tracheostomy tube is present. [employer] Workstation ID: [id number] [facility] CBCon 06-17-2019 Erythrocyte distribution width (RBC) [Entitic vol] 13.9 % 11.6 - 14.8 % [facility] Hematocrit (Bld) [Volume fraction] 31.7 % Low 41 - 53 % [facility] Hemoglobin (Bld) [Mass/Vol] 10.1 g/dL Low 13.5 - 17.5 g/dL [facility] Interpretation and review of laboratory results Abnormal [facility] MCH (RBC) [Entitic mass] 28.1 pg 26 - 34 pg [facility] MCHC (RBC) [Mass/Vol] 31.9 g/dL 31 - 3 7 g/dL [facility] MCV (RBC) [Entitic vol] 88.3 fL 80 - 100 fL [facility] Nucleated RBC (Bld) [#/Vol] 0.00 10*3/uL [facility] Nucleated RBC/100 WBC (Bld) [Ratio] 0.0 % [facility] Platelet mean volume (Bld) [Entitic vol] 8.8 fL Low 9 - 15.5 fL [facility] Platelets (Bld) [#/Vol] 685 10*3/uL High [facility] RBC (Bld) [#/Vol] 3.59 10*6/uL Low [facility] ealth WBC (Bld) [#/Vol] 17.04 10*3/uL High [facility] Chem 7on 06-17-2019 Anion gap [Moles/Vol] 17 mmol/L 10 - 2 0 mmol/L [facility] Chloride [Moles/Vol] 101 mmol/L 98 - 10 8 mmol/L [facility] Creatinine [Mass/Vol] 0.74 mg/dL 0.5 - 1.3 mg/dL [facility] GFR/1.73 sq M.predicted CKD-EPI (S/P/Bld) [Vol rate/Area] 111 >=60 mL/min/1.7 3 m2 [facility] Glucose [Mass/Vol] 134 mg/dL High 65 - 99 mg/dL [facility] HCO3 [Moles/Vol] 25 mmol/L 21 - 32 mmol/L [facility] Interpretation and review of laboratory results Abnormal [facility] Potassium [Moles/Vol] 4.3 mmol/L 3.5 - 5.1 mmol/L [facility] Sodium [Moles/Vol] 139 mmol/L 135 - 145 mmol/L [facility] Urea nitrogen [Mass/Vol] 41 mg/dL High 8 - 25 mg/dL [facility] Urea nitrogen/Creatinine [Mass ratio] 55.4 mg/mg High [facility] The eGFR should be u sed for monitoring renal function only and not for medication dosing. [facility] ECG 12-LEADon 06-17-2019 Atrial Rate 84 BPM [facility] P [place] 61 degrees [facility] P-R Interval 144 ms [facility] Q-T Interval 376 ms [facility] QRS Duration 90 ms [facility] QTC Calculation (Bezet) 444 ms [facility] R [place] 33 degrees [facility] T E[place] 35 degrees [facility] Ventricular Rate 84 BPM [facility] th Normal sinus rhythm Confirmed by VANESSA ALEJANDRO MD ([id number]) on 06/17/2019 10:56:15 AM [facility] POC Glucoseon 06-17-2019 Glucose [Mass/Vol] 105 mg/dL High 65 - 99 mg/dL [facility] Interpretation and review of laboratory results Abnormal [facility] Imm/Pathon 06-16-2019 Bacteria identified Cx Nom (Bld) No [facility] Base excess Calc (Bld) [Moles/Vol] 2.9 mmol/L High [facility] CO2 (Bld) [Partial pressure] 38.4 mm[Hg] [facility] HCO3 (Bld) [Moles/Vol] 26.5 mmol/L High 22 - 26 mmol/L [facility] Hematocrit (BldA) [Volume fraction] 30.8 % Low 41 - 53 % [facility] Hemoglobin (Bld) [Mass/Vol] 10.0 g/dL Low 13.5 - 18 g/dL [facility] Inhaled oxygen concentration 30 %/L [facility] Interpretation and review of laboratory results Abnormal [facility] Oxygen (Bld) [Partial pressure] 89 mm[Hg] [facility] pH (Bld) 7.45 [pH] [facility] SaO2% (BldA) [Mass fraction] 97.5 % 92 - 99 % [facility] CBCon 06-15-2019 Erythrocyte distribution width (RBC) [Entitic vol] 13.8 % 11.6 - 14.8 % [facility] Hematocrit (Bld) [Volume fraction] 30.3 % Low 41 - 53 % [facility] Hemoglobin (Bld) [Mass/Vol] 9.5 g/dL Low 13.5 - 17.5 g/dL [facility] Interpretation and review of laboratory results Abnormal [facility] MCH (RBC) [Entitic mass] 28.6 pg 26 - 34 pg [facility] MCHC (RBC) [Mass/Vol] 31.4 g/dL 31 - 3 7 g/dL [facility] MCV (RBC) [Entitic vol] 91.3 fL 80 - 100 fL [facility] Nucleated RBC (Bld) [#/Vol] 0.00 10*3/uL [facility] Nucleated RBC/100 WBC (Bld) [Ratio] 0.0 % [facility] Platelet mean volume (Bld) [Entitic vol] 9.3 fL 9 - 15.5 fL [facility] Platelets (Bld) [#/Vol] 631 10*3/uL High [facility] RBC (Bld) [#/Vol] 3.32 10*6/uL Low [facility] ealth WBC (Bld) [#/Vol] 16.49 10*3/uL [facility] Chem 7on 06-15-2019 Anion gap [Moles/Vol] 18 mmol/L 10 - 2 0 mmol/L [facility] Chloride [Moles/Vol] 100 mmol/L 98 - 10 8 mmol/L [facility] Creatinine [Mass/Vol] 0.64 mg/dL 0.5 - 1.3 mg/dL [facility] GFR/1.73 sq M.predicted CKD-EPI (S/P/Bld) [Vol rate/Area] 117 >=60 mL/min/1.7 3 m2 [facility] Glucose [Mass/Vol] 131 mg/dL High 65 - 99 mg/dL [facility] HCO3 [Moles/Vol] 25 mmol/L 21 - 32 mmol/L [facility] Interpretation and review of laboratory results Abnormal [facility] Potassium [Moles/Vol] 4.5 mmol/L 3.5 - 5.1 mmol/L [facility] Sodium [Moles/Vol] 138 mmol/L 135 - 145 mmol/L [facility] Urea nitrogen [Mass/Vol] 33 mg/dL High 8 - 25 mg/dL [facility] Urea nitrogen/Creatinine [Mass ratio] 51.6 mg/mg High [facility] The eGFR should be u sed for monitoring renal function only and not for medication dosing. [facility] XR Chest 1 Viewon 06-15-2019 Interface, Rad In Fu ji Speechq - 06/15/2019 10:03 PM EST EXAMINATION: XR CHEST PA/AP 06/15/2019 8:31 pm HISTORY: ORDERING SYSTEM PROVIDED HISTORY: sob, TECHNOLOGIST PROVIDED HISTORY: Illness/Other Reason for exam: sob Cancer History: Surgery, RadiationHistory: Encounter Type: Unknown Additional signs and symptoms: unk ORDERING SYSTEM PROVIDED DIAGNOSIS CODES: I77.71 Carotid artery dissection (HCC) I63.9 Cerebrovascular accident (CVA), unspecified mechanism (HCC) J96.90 Respiratory failure, unspecified chronicity, unspecified whether with hypoxia or hypercapnia (HCC) I63.231 Cerebrovascular accident (CVA) due to occlusion of right carotid artery (HCC) R13.10 Dysphagia, unspecified type I63.031 Cerebrovascular accident (CVA) due to thrombosis of right carotid artery (HCC) COMPARISON: Chest radiograph 06/11/2019. FINDINGS: Tracheostomy tube appears appropriately position. No consolidation, pleural effusion, or pneumothorax. Linear opacities in the lung bases likely represent atelectasis. Cardiac silhouette is normal in size. Pulmonary vasculature is normal. No acute osseous findings. IMPRESSION: Tracheostomy tube appears appropriately positioned. Mild bibasilar atelectasis. No consolidation or findings of pulmonary edema. [facility] Workstation ID: [id number] [facility] EXAMINATION: XR CHES T PA/AP 06/15/2019 8:31 pm HISTORY: ORDERING SYSTEM PROVIDED HISTORY: sob, TECHNOLOGIST PROVIDED HISTORY: Illness/Other Reason for exam: sob Cancer History: Surgery, RadiationHistory: Encounter Type: Unknown Additional signs and symptoms: unk ORDERING SYSTEM PROVIDED DIAGNOSIS CODES: I77.71 Carotid artery dissection (HCC) I63.9 Cerebrovascular accident (CVA), unspecified mechanism (HCC) J96.90 Respiratory failure, unspecified chronicity, unspecified whether with hypoxia or hypercapnia (HCC) I63.231 Cerebrovascular accident (CVA) due to occlusion of right carotid artery (HCC) R13.10 Dysphagia, unspecified type I63.031 Cerebrovascular accident (CVA) due to thrombosis of right carotid artery (HCC) COMPARISON: Chest radiograph 06/11/2019. FINDINGS: Tracheostomy tube appears appropriately position. No consolidation, pleural effusion, or pneumothorax. Linear opacities in the lung bases likely represent atelectasis. Cardiac silhouette is normal in size. Pulmonary vasculature is normal. No acute osseous findings. [facility] Tracheostomy tube ap pears appropriately positioned. Mild bibasilar atelectasis. No consolidation or findings of pulmonary edema. [facility] Workstation ID: [id number] [facility] CBCon 06-14-2019 Erythrocyte distribution width (RBC) [Entitic vol] 13.8 % 11.6 - 14.8 % [facility] Hematocrit (Bld) [Volume fraction] 31.6 % Low 41 - 53 % [facility] Hemoglobin (Bld) [Mass/Vol] 9.7 g/dL Low 13.5 - 17.5 g/dL [facility] MCH (RBC) [Entitic mass] 28.3 pg 26 - 34 pg [facility] MCHC (RBC) [Mass/Vol] 30.7 g/dL Low 31 - 3 7 g/dL [facility] MCV (RBC) [Entitic vol] 92.1 fL 80 - 100 fL [facility] Nucleated RBC (Bld) [#/Vol] 0.00 10*3/uL [facility] Nucleated RBC/100 WBC (Bld) [Ratio] 0.0 % [facility] Platelet mean volume (Bld) [Entitic vol] 8.8 fL Low 9 - 15.5 fL [facility] Platelets (Bld) [#/Vol] 696 10*3/uL High [facility] RBC (Bld) [#/Vol] 3.43 10*6/uL Low [facility] ealth WBC (Bld) [#/Vol] 18.08 10*3/uL High [facility] Chem 7on 06-14-2019 Anion gap [Moles/Vol] 13 mmol/L 10 - 2 0 mmol/L [facility] Chloride [Moles/Vol] 103 mmol/L 98 - 10 8 mmol/L [facility] Creatinine [Mass/Vol] 0.71 mg/dL 0.5 - 1.3 mg/dL [facility] GFR/1.73 sq M.predicted CKD-EPI (S/P/Bld) [Vol rate/Area] 113 >=60 mL/min/1.7 3 m2 [facility] Glucose [Mass/Vol] 133 mg/dL High 65 - 99 mg/dL [facility] HCO3 [Moles/Vol] 26 mmol/L 21 - 32 mmol/L [facility] Potassium [Moles/Vol] 4.3 mmol/L 3.5 - 5.1 mmol/L [facility] Sodium [Moles/Vol] 138 mmol/L 135 - 145 mmol/L [facility] Urea nitrogen [Mass/Vol] 31 mg/dL High 8 - 25 mg/dL [facility] Urea nitrogen/Creatinine [Mass ratio] 43.7 mg/mg High [facility] The eGFR should be u sed for monitoring renal function only and not for medication dosing. [facility] Otheron 06-14-2019 Interpretation and review of laboratory results Abnormal [facility] CBCon 06-13-2019 Erythrocyte distribution width (RBC) [Entitic vol] 14.1 % 11.6 - 14.8 % [facility] Hematocrit (Bld) [Volume fraction] 29.6 % Low 41 - 53 % [facility] Hemoglobin (Bld) [Mass/Vol] 9.4 g/dL Low 13.5 - 17.5 g/dL [facility] Interpretation and review of laboratory results Abnormal [facility] MCH (RBC) [Entitic mass] 29.0 pg 26 - 34 pg [facility] MCHC (RBC) [Mass/Vol] 31.8 g/dL 31 - 3 7 g/dL [facility] MCV (RBC) [Entitic vol] 91.4 fL 80 - 100 fL [facility] Nucleated RBC (Bld) [#/Vol] 0.00 10*3/uL [facility] Nucleated RBC/100 WBC (Bld) [Ratio] 0.0 % [facility] Platelet mean volume (Bld) [Entitic vol] 8.8 fL Low 9 - 15.5 fL [facility] Platelets (Bld) [#/Vol] 607 10*3/uL High [facility] RBC (Bld) [#/Vol] 3.24 10*6/uL Low [facility] ealth WBC (Bld) [#/Vol] 16.69 10*3/uL High [facility] Chem 7on 06-13-2019 Anion gap [Moles/Vol] 16 mmol/L 10 - 2 0 mmol/L [facility] Chloride [Moles/Vol] 104 mmol/L 98 - 10 8 mmol/L [facility] Creatinine [Mass/Vol] 0.62 mg/dL 0.5 - 1.3 mg/dL [facility] GFR/1.73 sq M.predicted CKD-EPI (S/P/Bld) [Vol rate/Area] 119 >=60 mL/min/1.7 3 m2 [facility] Glucose [Mass/Vol] 142 mg/dL High 65 - 99 mg/dL [facility] HCO3 [Moles/Vol] 24 mmol/L 21 - 32 mmol/L [facility] Interpretation and review of laboratory results Abnormal [facility] Potassium [Moles/Vol] 4.3 mmol/L 3.5 - 5.1 mmol/L [facility] Sodium [Moles/Vol] 140 mmol/L 135 - 145 mmol/L [facility] Urea nitrogen [Mass/Vol] 30 mg/dL High 8 - 25 mg/dL [facility] Urea nitrogen/Creatinine [Mass ratio] 48.4 mg/mg High [facility] The eGFR should be u sed for monitoring renal function only and not for medication dosing. [facility] Imm/Pathon 06-13-2019 Bacteria identified Cx Nom (Bld) No [facility] Bacteria identified Aer cx Nom (Sput) Moderate Growth Stenotrophomonas maltophilia (Xanthomonas) Abnormal [facility] Bacteria identified Aer cx Nom (Sput) Light Growth Normal Respiratory Jennifer [facility] Interpretation and review of laboratory results Abnormal [facility] Microscopic observation Gram stain Nom (Sput) Many RBC [facility] Microscopic observation Gram stain Nom (Sput) Rare Mixed Jennifer [facility] Microscopic observation Gram stain Nom (Sput) Many WBC [facility] CBCon 06-12-2019 Erythrocyte distribution width (RBC) [Entitic vol] 14.2 % 11.6 - 14.8 % [facility] Hematocrit (Bld) [Volume fraction] 27.8 % Low 41 - 53 % [facility] Hemoglobin (Bld) [Mass/Vol] 8.6 g/dL Low 13.5 - 17.5 g/dL [facility] Interpretation and review of laboratory results Abnormal [facility] MCH (RBC) [Entitic mass] 28.7 pg 26 - 34 pg [facility] MCHC (RBC) [Mass/Vol] 30.9 g/dL Low 31 - 3 7 g/dL [facility] MCV (RBC) [Entitic vol] 92.7 fL 80 - 100 fL [facility] Nucleated RBC (Bld) [#/Vol] 0.00 10*3/uL [facility] Nucleated RBC/100 WBC (Bld) [Ratio] 0.0 % [facility] Platelet mean volume (Bld) [Entitic vol] 9.1 fL 9 - 15.5 fL [facility] Platelets (Bld) [#/Vol] 554 10*3/uL High [facility] RBC (Bld) [#/Vol] 3.00 10*6/uL Low [facility] ealth WBC (Bld) [#/Vol] 18.04 10*3/uL [facility] Chem 7on 06-12-2019 Anion gap [Moles/Vol] 12 mmol/L 10 - 2 0 mmol/L [facility] Chloride [Moles/Vol] 105 mmol/L 98 - 10 8 mmol/L [facility] Creatinine [Mass/Vol] 0.75 mg/dL 0.5 - 1.3 mg/dL [facility] GFR/1.73 sq M.predicted CKD-EPI (S/P/Bld) [Vol rate/Area] 110 >=60 mL/min/1.7 3 m2 [facility] Glucose [Mass/Vol] 139 mg/dL High 65 - 99 mg/dL [facility] HCO3 [Moles/Vol] 24 mmol/L 21 - 32 mmol/L [facility] Interpretation and review of laboratory results Abnormal [facility] Potassium [Moles/Vol] 4.0 mmol/L 3.5 - 5.1 mmol/L [facility] Sodium [Moles/Vol] 137 mmol/L 135 - 145 mmol/L [facility] Urea nitrogen [Mass/Vol] 30 mg/dL High 8 - 25 mg/dL [facility] Urea nitrogen/Creatinine [Mass ratio] 40.0 mg/mg High [facility] The eGFR should be u sed for monitoring renal function only and not for medication dosing. [facility] CBCon 06-11-2019 Erythrocyte distribution width (RBC) [Entitic vol] 14.2 % 11.6 - 14.8 % [facility] Hematocrit (Bld) [Volume fraction] 29.4 % Low 41 - 53 % [facility] Hemoglobin (Bld) [Mass/Vol] 9.3 g/dL Low 13.5 - 17.5 g/dL [facility] MCH (RBC) [Entitic mass] 28.9 pg 26 - 34 pg [facility] MCHC (RBC) [Mass/Vol] 31.6 g/dL 31 - 3 7 g/dL [facility] MCV (RBC) [Entitic vol] 91.3 fL 80 - 100 fL [facility] Nucleated RBC (Bld) [#/Vol] 0.00 10*3/uL [facility] Nucleated RBC/100 WBC (Bld) [Ratio] 0.0 % [facility] Platelet mean volume (Bld) [Entitic vol] 8.9 fL Low 9 - 15.5 fL [facility] Platelets (Bld) [#/Vol] 479 10*3/uL High [facility] RBC (Bld) [#/Vol] 3.22 10*6/uL Low [facility] ealth WBC (Bld) [#/Vol] 17.29 10*3/uL High [facility] Chem 7on 06-11-2019 Anion gap [Moles/Vol] 17 mmol/L 10 - 2 0 mmol/L [facility] Chloride [Moles/Vol] 104 mmol/L 98 - 10 8 mmol/L [facility] Creatinine [Mass/Vol] 1.00 mg/dL 0.5 - 1.3 mg/dL [facility] GFR/1.73 sq M.predicted CKD-EPI (S/P/Bld) [Vol rate/Area] 90 >=60 mL/min/1.7 3 m2 [facility] Glucose [Mass/Vol] 144 mg/dL High 65 - 99 mg/dL [facility] HCO3 [Moles/Vol] 22 mmol/L 21 - 32 mmol/L [facility] Potassium [Moles/Vol] 4.2 mmol/L 3.5 - 5.1 mmol/L [facility] Sodium [Moles/Vol] 139 mmol/L 135 - 145 mmol/L [facility] Urea nitrogen [Mass/Vol] 31 mg/dL High 8 - 25 mg/dL [facility] Urea nitrogen/Creatinine [Mass ratio] 31.0 mg/mg High [facility] The eGFR should be u sed for monitoring renal function only and not for medication dosing. [facility] Otheron 06-11-2019 Interpretation and review of laboratory results Abnormal [facility] Sputum Aerobic Cultureon Bacteria identified Aer cx Nom (Sput) Heavy Growth Stenotrophomonas maltophilia (Xanthomonas) Abnormal [facility] Bacteria identified Aer cx Nom (Sput) Heavy Growth Alcaligenes faecalis ssp faecalis Abnormal [facility] Bacteria identified Aer cx Nom (Sput) Normal Jennifer Absent [facility] Microscopic observation Gram stain Nom (Sput) Moderate Mixed Jennifer [facility] Microscopic observation Gram stain Nom (Sput) [facility] Microscopic observation Gram stain Nom (Sput) Few Epithelial Cells [facility] Microscopic observation Gram stain Nom (Sput) Few RBC [facility] URINALYSISon 06-11-2019 Bacteria Auto Ql (U) Few Abnormal None Se en /hpf [facility] Bilirubin Ql (U) Negative Negative [facility] th Clarity Refractometry automated (U) Cloudy Abnormal Clear [facility] Color (U) Yellow Colorless, Yellow [facility] Crystals.amorphous Computer assisted (U) [#/Area] Many Abnormal None Seen, Rare /hpf [facility] Glucose Auto test strip (U) [Mass/Vol] Negative Negative mg/dL [facility] Hemoglobin Auto test strip Ql (U) Negative Negative [facility] Ketones (U) [Mass/Vol] Negative Negative mg/dL [facility] Leukocyte clumps Auto (Urine sed) [#/Area] Rare Abnormal None Seen /hpf [facility] Leukocyte esterase Auto test strip Ql (U) Small Abnormal Negative [facility] Mucus Auto (Urine sed) [#/Area] Few Abnormal None Seen, Rare /lpf [facility] Nitrite Auto test strip Ql (U) Negative Negative [facility] pH (U) 5.0 [pH] [facility] Protein (U) [Mass/Vol] Negative Negative mg/dL [facility] Specific gravity (U) [Rel density] 1.027 High [facility] Urate crystals Computer assisted (U) [#/Area] Few Abnormal None Seen /hpf [facility] Urobilinogen (U) [Mass/Vol] <2.0 <2.0 mg/dL [facility] WBC Auto (Urine sed) [#/Area] 102 High [facility] Microscopic examinat ion is performed on all urinalysis samples and only positive findings are reported. The test for blood on the chemical analytic portion of urinalysis may also be positive due to hemoglobinuria and myoglobinuria and if red blood cells are present they are quantified by microscopic examination. [facility] Ultrasound duplex venous leg s bilaton 06-11-2019 Interface, Rad In [facility] - 06/11/2019 5:03 PM EST Non-Invasive Vascular Patient: LISA Moran [facility] Rec#: [id number] (Age): 1975(44y) Study Date: 06/11/2019 Room#: Type: Inpatient Sex: M Reading: [place] Reading: Guzman Arteaga MD, RPVI Referring: VIRGILIO Referring: Nicole Shahid CNP Patient Access Specialist: Odette Anguiano RDCS,RVT Procedure Info: [id number] Study Quality: Lower Venous Duplex: adequate Diagnosis: I63.319 Cerebral infarction due to thrombosis of unspecified middle cerebral artery Lower Venous Duplex Conclusions No evidence of deep or superficial vein thrombosis in either lower extremity. The procedure was explained to the patient. Doubt comprehension. Finding Grids Right Duplex Exam Spont Phasic External Iliac Y Y Common Femoral Y Y Proximal Profunda Y Y Proximal Femoral Y Y Mid Femoral Y Y Distal Femoral Y Y Popliteal Y Y Posterior Tibial Y Y Peroneal Y Y Great Saphenous Y Y Augment Color Filling Compressibility External Iliac Y Y Y Common Femoral Y Y Y Proximal Profunda Y Y Y Proximal Femoral Y Y Y Mid Femoral Y Y Y Distal Femoral Y Y Y Popliteal Y Y Y Posterior Tibial Y Y Y Peroneal Y Y Y Great Saphenous Y Y Y Chirinos --------- Y = Yes Left Duplex Exam Spont Phasic External Iliac Y Y Common Femoral Y Y Proximal Profunda Y Y Proximal Femoral Y Y Mid Femoral Y Y Distal Femoral Y Y Popliteal Y Y Posterior Tibial Y Y Peroneal Y Y Great Saphenous Y Y Augment Color Filling Compressibility External Iliac Y Y Y Common Femoral Y Y Y Proximal Profunda Y Y Y Proximal Femoral Y Y Y Mid Femoral Y Y Y Distal Femoral Y Y Y Popliteal Y Y Y Posterior Tibial Y Y Y Peroneal Y Y Y Great Saphenous Y Y Y Chirinos --------- Y = Yes Electronically signed at 06/11/2019 15:53:36 by: Guzman Arteaga MD, VI [facility] Non-Invasive Vascula r Patient: LISA REVELES [facility] Rec#: [id number] (Age): 1975(44y) Study Date: 06/11/2019 Room#: Type: Inpatient Sex: M Reading: RIVER [place] Reading: Guzman Arteaga MD, RPVI Referring: VIRGILIO Referring: Nicole Shahid CNP Patient Access Specialist: Odette Anguiano RDCS,RVT Procedure Info: [id number] Study Quality: Lower Venous Duplex: adequate Diagnosis: I63.319 Cerebral infarction due to thrombosis of unspecified middle cerebral artery Lower Venous Duplex Conclusions No evidence of deep or superficial vein thrombosis in either lower extremity. The procedure was explained to the patient. Doubt comprehension. Finding Grids Right Duplex Exam Spont Phasic External Iliac Y Y Common Femoral Y Y Proximal Profunda Y Y Proximal Femoral Y Y Mid Femoral Y Y Distal Femoral Y Y Popliteal Y Y Posterior Tibial Y Y Peroneal Y Y Great Saphenous Y Y Augment Color Filling Compressibility External Iliac Y Y Y Common Femoral Y Y Y Proximal Profunda Y Y Y Proximal Femoral Y Y Y Mid Femoral Y Y Y Distal Femoral Y Y Y Popliteal Y Y Y Posterior Tibial Y Y Y Peroneal Y Y Y Great Saphenous Y Y Y Chirinos --------- Y = Yes Left Duplex Exam Spont Phasic External Iliac Y Y Common Femoral Y Y Proximal Profunda Y Y Proximal Femoral Y Y Mid Femoral Y Y Distal Femoral Y Y Popliteal Y Y Posterior Tibial Y Y Peroneal Y Y Great Saphenous Y Y Augment Color Filling Compressibility External Iliac Y Y Y Common Femoral Y Y Y Proximal Profunda Y Y Y Proximal Femoral Y Y Y Mid Femoral Y Y Y Distal Femoral Y Y Y Popliteal Y Y Y Posterior Tibial Y Y Y Peroneal Y Y Y Great Saphenous Y Y Y Chirinos --------- Y = Yes Electronically signed at 06/11/2019 15:53:36 by: Guzman Arteaga MD, [facility] XR Chest 1 Viewon 06-11-2019 Interface, Rad In [facility] - 06/11/2019 4:14 PM EST EXAMINATION: XR CHEST PA/AP HISTORY: ORDERING SYSTEM PROVIDED HISTORY: infectious eval, TECHNOLOGIST PROVIDED HISTORY: Illness/Other Reason for exam: infectious eval Cancer History: Surgery, RadiationHistory: Encounter Type: Unknown Additional signs and symptoms: ORDERING SYSTEM PROVIDED DIAGNOSIS CODES: I77.71 Carotid artery dissection (HCC) I63.9 Cerebrovascular accident (CVA), unspecified mechanism (HCC) J96.90 Respiratory failure, unspecified chronicity, unspecified whether with hypoxia or hypercapnia (HCC) I63.231 Cerebrovascular accident (CVA) due to occlusion of right carotid artery (HCC) R13.10 Dysphagia, unspecified type I63.031 Cerebrovascular accident (CVA) due to thrombosis of right carotid artery (HCC) COMPARISON: 06/09/2019. FINDINGS: Portable AP semiupright view of the chest. Tracheostomy tube is again noted and appears stable. There may be mild vascular congestion and interstitial prominence. There is a decrease in previously visualized left-sided pleural effusion. Right-sided airspace opacity is also decreased. There is persistent enlargement of the cardiac silhouette. No acute bony abnormalities. IMPRESSION: Decrease in left-sided pleural effusion and right basilar airspace opacity. Mild vascular congestion is suggested. [facility]/jcw Workstation ID: [id number] [facility] EXAMINATION: XR CHES T PA/AP HISTORY: ORDERING SYSTEM PROVIDED HISTORY: infectious eval, TECHNOLOGIST PROVIDED HISTORY: Illness/Other Reason for exam: infectious eval Cancer History: Surgery, RadiationHistory: Encounter Type: Unknown Additional signs and symptoms: ORDERING SYSTEM PROVIDED DIAGNOSIS CODES: I77.71 Carotid artery dissection (HCC) I63.9 Cerebrovascular accident (CVA), unspecified mechanism (HCC) J96.90 Respiratory failure, unspecified chronicity, unspecified whether with hypoxia or hypercapnia (HCC) I63.231 Cerebrovascular accident (CVA) due to occlusion of right carotid artery (HCC) R13.10 Dysphagia, unspecified type I63.031 Cerebrovascular accident (CVA) due to thrombosis of right carotid artery (HCC) COMPARISON: 06/09/2019. FINDINGS: Portable AP semiupright view of the chest. Tracheostomy tube is again noted and appears stable. There may be mild vascular congestion and interstitial prominence. There is a decrease in previously visualized left-sided pleural effusion. Right-sided airspace opacity is also decreased. There is persistent enlargement of the cardiac silhouette. No acute bony abnormalities. [facility] Decrease in left-nilam ed pleural effusion and right basilar airspace opacity. Mild vascular congestion is suggested. [facility] Workstation ID: [id number] [facility] CBCon 06-10-2019 Erythrocyte distribution width (RBC) [Entitic vol] 13.8 % 11.6 - 14.8 % [facility] Hematocrit (Bld) [Volume fraction] 27.5 % Low 41 - 53 % [facility] MCHC (RBC) [Mass/Vol] 32.0 g/dL 31 - 3 7 g/dL [facility] Nucleated RBC (Bld) [#/Vol] 0.00 10*3/uL [facility] Nucleated RBC/100 WBC (Bld) [Ratio] 0.0 % [facility] Platelets (Bld) [#/Vol] 413 10*3/uL High [facility] RBC (Bld) [#/Vol] 3.03 10*6/uL Low [facility] ealt WBC (Bld) [#/Vol] 17.81 10*3/uL High [facility] Chem 7on 06-10-2019 Anion gap [Moles/Vol] 19 mmol/L 10 - 2 0 mmol/L [facility] Chloride [Moles/Vol] 102 mmol/L 98 - 10 8 mmol/L [facility] Creatinine [Mass/Vol] 1.08 mg/dL 0.5 - 1.3 mg/dL [facility] GFR/1.73 sq M.predicted CKD-EPI (S/P/Bld) [Vol rate/Area] 82 >=60 mL/min/1.7 3 m2 [facility] Glucose [Mass/Vol] 130 mg/dL High 65 - 99 mg/dL [facility] HCO3 [Moles/Vol] 20 mmol/L Low 21 - 32 mmol/L [facility] Interpretation and review of laboratory results Abnormal [facility] Potassium [Moles/Vol] 4.7 mmol/L 3.5 - 5.1 mmol/L [facility] Sodium [Moles/Vol] 136 mmol/L 135 - 145 mmol/L [facility] Urea nitrogen [Mass/Vol] 35 mg/dL High 8 - 25 mg/dL [facility] Urea nitrogen/Creatinine [Mass ratio] 32.4 mg/mg High [facility] The eGFR should be u sed for monitoring renal function only and not for medication dosing. [facility] POC Glucoseon 06-10-2019 Glucose [Mass/Vol] 154 mg/dL High 65 - 99 mg/dL [facility] Interpretation and review of laboratory results Abnormal [facility] Glucose [Mass/Vol] 123 mg/dL High 65 - 99 mg/dL [facility] Interpretation and review of laboratory results Abnormal [facility] CBC WITH AUTO DIFFon 11-18-2 019 Basophils (Bld) [#/Vol] 0.0 10 3/uL Normal 0.0-0.2 [facility] Comment on above: Performed By: #### C MP, PTT, CKMB 1, PT, CBC, TROP 1, UDS, CPK 1, UA w RFX x2 #### Main Lab - [facility] [address] [place] [address] Basophils/100 WBC (Bld) 0.1 % Normal 0.0-1.0 [facility] Comment on above: Performed By: #### C MP, PTT, CKMB 1, PT, CBC, TROP 1, UDS, CPK 1, UA w RFX x2 #### Main Lab - [facility] [address] [place] [address] Eosinophils (Bld) [#/Vol] 0.0 10 3/uL Normal 0.0-0.7 [facility] Comment on above: Performed By: #### C MP, PTT, CKMB 1, PT, CBC, TROP 1, UDS, CPK 1, UA w RFX x2 #### [address] [address] Eosinophils/100 WBC (Bld) 0.0 % Normal 0.0-5.0 [facility] Comment on above: Performed By: #### C MP, PTT, CKMB 1, PT, CBC, TROP 1, UDS, CPK 1, UA w RFX x2 #### [address] [address] Erythrocyte distribution width (RBC) [Ratio] 13.4 % Normal 11.5-14.0 [facility] Comment on above: Performed By: #### C MP, PTT, CKMB 1, PT, CBC, TROP 1, UDS, CPK 1, UA w RFX x2 #### [address] [address] Hematocrit (Bld) [Volume fraction] 43.3 % Normal 38.7-49.8 [facility] Comment on above: Performed By: #### C MP, PTT, CKMB 1, PT, CBC, TROP 1, UDS, CPK 1, UA w RFX x2 #### [address] [address] Hemoglobin (Bld) [Mass/Vol] 15.2 g/dL Normal 12.9-16.6 [facility] Comment on above: Performed By: #### C MP, PTT, CKMB 1, PT, CBC, TROP 1, UDS, CPK 1, UA w RFX x2 #### [address] [address] Lymphocytes (Bld) [#/Vol] 1.2 10 3/uL Normal 1.0-3.5 [facility] Comment on above: Performed By: #### C MP, PTT, CKMB 1, PT, CBC, TROP 1, UDS, CPK 1, UA w RFX x2 #### [address] [address] Lymphocytes/100 WBC (Bld) 5.8 % Low 24.0-44.0 [facility] Comment on above: Performed By: #### C MP, PTT, CKMB 1, PT, CBC, TROP 1, UDS, CPK 1, UA w RFX x2 #### [facility] - [address] [address] MCH (RBC) [Entitic mass] 30.1 pg Normal 27.0-31.0 [facility] Comment on above: Performed By: #### C MP, PTT, CKMB 1, PT, CBC, TROP 1, UDS, CPK 1, UA w RFX x2 #### [facility] - [address] [address] MCHC (RBC) [Mass/Vol] 35.1 g/dL Normal 32.0-36.0 [facility] Comment on above: Performed By: #### C MP, PTT, CKMB 1, PT, CBC, TROP 1, UDS, CPK 1, UA w RFX x2 #### [address] [address] MCV (RBC) [Entitic vol] 85.7 fL Normal 78.0-100.0 [facility] Comment on above: Performed By: #### C MP, PTT, CKMB 1, PT, CBC, TROP 1, UDS, CPK 1, UA w RFX x2 #### [facility] - [address] [address] Monocytes (Bld) [#/Vol] 1.0 10 3/uL High 0.2-0.8 [facility] Comment on above: Performed By: #### C MP, PTT, CKMB 1, PT, CBC, TROP 1, UDS, CPK 1, UA w RFX x2 #### [facility] [address] [address] Monocytes/100 WBC (Bld) 4.8 % Normal 1.7-9.3 [facility] Comment on above: Performed By: #### C MP, PTT, CKMB 1, PT, CBC, TROP 1, UDS, CPK 1, UA w RFX x2 #### [facility] [address] [address] Neutrophils (Bld) [#/Vol] 18.0 10 3/uL High 1.5-6.7 [facility] Comment on above: Performed By: #### C MP, PTT, CKMB 1, PT, CBC, TROP 1, UDS, CPK 1, UA w RFX x2 #### Main Lab - [facility] [address] Neutrophils/100 WBC (Bld) 89.3 % High 36.0-66.0 [facility] Comment on above: Performed By: #### C MP, PTT, CKMB 1, PT, CBC, TROP 1, UDS, CPK 1, UA w RFX x2 #### Main Lab - [facility] [address] Platelet mean volume (Bld) [Entitic vol] 7.4 fL Normal 6.0-9.5 [facility] Comment on above: Performed By: #### C MP, PTT, CKMB 1, PT, CBC, TROP 1, UDS, CPK 1, UA w RFX x2 #### [facility] - [address] [address] Platelets (Bld) [#/Vol] 271 10 3/uL Normal 150-450 [facility] Comment on above: Performed By: #### C MP, PTT, CKMB 1, PT, CBC, TROP 1, UDS, CPK 1, UA w RFX x2 #### [facility] - [address] [address] RBC (Bld) [#/Vol] 5.06 x10 6/uL Normal 4.38-5.71 [facility] Comment on above: Performed By: #### C MP, PTT, CKMB 1, PT, CBC, TROP 1, UDS, CPK 1, UA w RFX x2 #### [facility] - [address] [address] WBC (Bld) [#/Vol] 20.1 10 3/uL High 4.0-10.5 [facility] Comment on above: Performed By: #### C MP, PTT, CKMB 1, PT, CBC, TROP 1, UDS, CPK 1, UA w RFX x2 #### Main Lab - [facility] [address] [place] [address] COMPREHENSIVE METABOLIC PANE Branden 05-25-2019 Albumin [Mass/Vol] 3.6 g/dL Low 3.9-5.0 [facility] Comment on above: Performed By: #### C MP, PTT, CKMB 1, PT, CBC, TROP 1, UDS, CPK 1, UA w RFX x2 #### Main Lab - [facility] [address] Albumin/Globulin [Mass ratio] 1.0 {ratio} Low 1.1-1.8 [facility] Comment on above: Performed By: #### C MP, PTT, CKMB 1, PT, CBC, TROP 1, UDS, CPK 1, UA w RFX x2 #### Main Lab - [facility] [address] ALP [Catalytic activity/Vol] 72 U/L Normal 43-122 [facility] Comment on above: Performed By: #### C MP, PTT, CKMB 1, PT, CBC, TROP 1, UDS, CPK 1, UA w RFX x2 #### Main Lab - [facility] [address] ALT/SGPT 23 U/L Normal 7-56 [facility] Comment on above: Performed By: #### C MP, PTT, CKMB 1, PT, CBC, TROP 1, UDS, CPK 1, UA w RFX x2 #### Main Lab - [facility] [address] Anion gap [Moles/Vol] 10 mmol/L Normal 9-18 [facility] Comment on above: Performed By: #### C MP, PTT, CKMB 1, PT, CBC, TROP 1, UDS, CPK 1, UA w RFX x2 #### Main Lab - [facility] [address] [place] [address] AST/SGOT 28 U/L Normal 14-50 [facility] Comment on above: Performed By: #### C MP, PTT, CKMB 1, PT, CBC, TROP 1, UDS, CPK 1, UA w RFX x2 #### Main Lab - [facility] [address] [place] [address] Bilirubin [Mass/Vol] 0.8 mg/dL Normal 0.2-1.3 [facility] Comment on above: Performed By: #### C MP, PTT, CKMB 1, PT, CBC, TROP 1, UDS, CPK 1, UA w RFX x2 #### Main Lab - [facility] [address] [place] [address] Calcium [Mass/Vol] 8.8 mg/dL Normal 8.4-10.2 [facility] Comment on above: Performed By: #### C MP, PTT, CKMB 1, PT, CBC, TROP 1, UDS, CPK 1, UA w RFX x2 #### Main Lab - [facility] [address] Chloride [Moles/Vol] 103 mmol/L Normal 98-107 [facility] Comment on above: Performed By: #### C MP, PTT, CKMB 1, PT, CBC, TROP 1, UDS, CPK 1, UA w RFX x2 #### Main Lab - [facility] [address] [place] [address] CO2 [Moles/Vol] 29 mmol/L Normal 22-31 [facility] Comment on above: Performed By: #### C MP, PTT, CKMB 1, PT, CBC, TROP 1, UDS, CPK 1, UA w RFX x2 #### [facility] - [address] [address] Creatinine [Mass/Vol] 1.26 mg/dL Normal 0.80-1.30 [facility] Comment on above: Performed By: #### C MP, PTT, CKMB 1, PT, CBC, TROP 1, UDS, CPK 1, UA w RFX x2 #### Main Lab - [facility] [address] [place] [address] ESTIMATED CREAT CLEARANCE 73.26 Normal [facility] Comment on above: Result Comment: COCK CROFT-GAULT FORMULA 1972 Performed By: #### C MP, PTT, CKMB 1, PT, CBC, TROP 1, UDS, CPK 1, UA w RFX x2 #### Main Lab - [facility] [address] [place] [address] GFR/1.73 sq M predicted among non-blacks MDRD (S/P/Bld) [Vol rate/Area] mL/min/{1.73_m2} Normal [facility] Comment on above: Performed By: #### C MP, PTT, CKMB 1, PT, CBC, TROP 1, UDS, CPK 1, UA w RFX x2 #### Main Lab - [facility] [address] [place], [place] [address] Globulin (S) [Mass/Vol] 3.7 g/dL Normal [facility] Comment on above: Performed By: #### C MP, PTT, CKMB 1, PT, CBC, TROP 1, UDS, CPK 1, UA w RFX x2 #### Main Lab - [facility] [address] Glucose [Mass/Vol] 131 mg/dL High 70-99 [facility] Comment on above: Result Comment: The glucose range is based on recommendations from the [employer] for fasting blood glucose range. Performed By: #### C MP, PTT, CKMB 1, PT, CBC, TROP 1, UDS, CPK 1, UA w RFX x2 #### Main Lab - [facility] [address] Potassium [Moles/Vol] 4.3 mmol/L Normal 3.6-5.[address] [facility] Comment on above: Performed By: #### C MP, PTT, CKMB 1, PT, CBC, TROP 1, UDS, CPK 1, UA w RFX x2 #### Main Lab - [address] [address] Protein [Mass/Vol] 7.3 g/dL Normal 6.3-8.2 [facility] Comment on above: Performed By: #### C MP, PTT, CKMB 1, PT, CBC, TROP 1, UDS, CPK 1, UA w RFX x2 #### Main Lab - [facility] [place], [place] [address] Sodium [Moles/Vol] 138 mmol/L Normal 137-145 [facility] Comment on above: Performed By: #### C MP, PTT, CKMB 1, PT, CBC, TROP 1, UDS, CPK 1, UA w RFX x2 #### Main Lab - [facility] [place], [place] [address] Urea nitrogen [Mass/Vol] 15 mg/dL Normal 7-21 [facility] Comment on above: Performed By: #### C MP, PTT, CKMB 1, PT, CBC, TROP 1, UDS, CPK 1, UA w RFX x2 #### Main Lab - [facility] [place], [place] [address] Urea nitrogen/Creatinine [Mass ratio] 11.9 Ratio Normal 5.0-42.0 [facility] Comment on above: Performed By: #### C MP, PTT, CKMB 1, PT, CBC, TROP 1, UDS, CPK 1, UA w RFX x2 #### Main Lab - [facility] [address] [place] [id number] Age - Reported 44 Years Normal [facility] Comment on above: Performed By: #### C MP, PTT, CKMB 1, PT, CBC, TROP 1, UDS, CPK 1, UA w RFX x2 #### Main Lab - [facility] [address] [place] [address] 16788 CREATINE KINASEon 05-25-2019 CK [Catalytic activity/Vol] 629 U/L High 55-170 [facility] Comment on above: Performed By: #### C MP, PTT, CKMB 1, PT, CBC, TROP 1, UDS, CPK 1, UA w RFX x2 #### Main Lab - [facility] [address] [place] [address]180 CREATINE KINASE MBon 019 CK.MB [Mass/Vol] 2.9 ng/mL Normal 0.0-3.7 [facility] Comment on above: Performed By: #### C MP, PTT, CKMB 1, PT, CBC, TROP 1, UDS, CPK 1, UA w RFX x2 #### Main Lab - [facility] [address] [place] [address] CERVICAL SPINE W/O CONTRA STon 05-25-2019 CT CERVICAL SPINE W/O CONTRAST [facility] [address] [place] [address] Diagnostic Imaging Report : [id number] Signed Name: JOHNATHAN GONZALEZ MRUN: [id number] : 1975 Loc: ED Age / Sex: 44 / M ADM Status: REG ER ADM Date: 05/25/19 Room/Bed: Ordering Physician: Leoncio Flanagan MD Procedure: CT CERVICAL SPINE W/O CONTRAST Order Number(s): [id number] Ordered Date: 05/25/19 Ordered Time: 1914 EXAMINATION: CT OF THE CERVICAL SPINE WITHOUT CONTRAST 05/25/2019 7:35 pm TECHNIQUE: CT of the cervical spine was performed without the administration of intravenous contrast. Multiplanar reformatted images are provided for review. Dose modulation, iterative reconstruction, and/or weight based adjustment of the mA/kV was utilized to reduce the radiation dose to as low as reasonably achievable. COMPARISON: None. HISTORY: fall/injury/AMS FINDINGS: BONES/ALIGNMENT: There is no acute fracture or traumatic malalignment. DEGENERATIVE CHANGES: Moderate disc space narrowing with endplate spurring C5-6. SOFT TISSUES: There is no prevertebral soft tissue swelling. IMPRESSION: No acute abnormality of the cervical spine. However there is moderate degenerative disc changes C5-6. Dictated By: Rayray Yang MD Dictated Date/Time: 05/25/191937 Signed By: Rayray Yang MD Signed Date/Time: 05/25/191943 Transcribed Date/Time: 05/25/191939 Normal [facility] CT HEAD W/O CONTRASTon 05-25 CT HEAD W/O CONTRAST [facility] [address] [place], [place] [id number] Diagnostic Imaging Report : [id number] Signed Name: JOHNATHAN GONZALEZ MRUN: [id number] : 1975 Loc: ED Age / Sex: 44 / M ADM Status: REG ER ADM Date: 05/25/19 Room/Bed: Ordering Physician: Leoncio Flanagan MD Procedure: CT HEAD W/O CONTRAST Order Number(s): [id number] Ordered Date: 05/25/19 Ordered Time: 1915 EXAMINATION: CT OF THE HEAD WITHOUT CONTRAST 05/25/2019 7:34 pm TECHNIQUE: CT of the head was performed without the administration of intravenous contrast. Dose modulation, iterative reconstruction, and/or weight based adjustment of the mA/kV was utilized to reduce the radiation dose to as low as reasonably achievable. COMPARISON: 06/01/2016. HISTORY: Stroke Evaluation FINDINGS: BRAIN/VENTRICLES: Dense right middle cerebral artery, image 12 series 5 suspicious for acute thrombosis in the right middle cerebral artery M1 segment. Increased density in the distal right internal carotid artery as well, image 38 series 604. Large low-attenuation identified in the right middle cerebral artery territory involving the inferior aspects of the right frontal, the right temporal as well as parts of the right parietal lobe, suspicious for acute ischemia. There is effacement of the sulci in this region. No bleed noted. Mild effacement of the right lateral ventricle. No midline shift. ORBITS: The visualized portion of the orbits demonstrate no acute abnormality. SINUSES: The visualized paranasal sinuses and mastoid air cells demonstrate no acute abnormality. SOFT TISSUES/SKULL: No acute abnormality of the visualized skull or soft tissues. IMPRESSION: Dense right middle cerebral artery M1 segment suspicious for acute thrombosis. Increased density in the distal right internal carotid artery as well. Findings suggest acute ischemia involving the right middle cerebral artery territory with low attenuation in the right cerebral cortex as detailed above. Mild edema noted in this region along with mild effacement of the right lateral ventricle. No midline shift. No acute bleed. Communications: The above critical findings were communicated personally by Dr. Sinai Du to today at 7:44 p.m. RECOMMENDATIONS: CTA of the head neck is advised. Dictated By: Sinai Du MD Dictated Date/Time: 05/25/191937 Signed By: Sinai Du MD, MD Signed Date/Time: 05/25/192032 Transcribed Date/Time: 05/25/192029 Normal [facility] DRUG SCREEN,URINEon 05-25-20 19 NITRITE,URINE Negative Normal NEGATIVE [facility] Comment on above: Performed By: #### C MP, PTT, CKMB 1, PT, CBC, TROP 1, UDS, CPK 1, UA w RFX x2 #### Main Lab - [facility] [address] [place] [address] pH (U) 6.0 [pH] Normal 5.0-8.0 [facility] Comment on above: Performed By: #### C MP, PTT, CKMB 1, PT, CBC, TROP 1, UDS, CPK 1, UA w RFX x2 #### Main Lab - [place] [address] SPECIFIC GRAVITY,URINE 1.028 SP.GR. Normal <1.029 [facility] Comment on above: Performed By: #### C MP, PTT, CKMB 1, PT, CBC, TROP 1, UDS, CPK 1, UA w RFX x2 #### [facility] [place] [address] AMPHETAMINE SCREEN,URINE Negative Normal NEGATIVE [facility] Comment on above: Result Comment: Nega tive cut-off concentration <1000 ng/mL Performed By: #### C MP, PTT, CKMB 1, PT, CBC, TROP 1, UDS, CPK 1, UA w RFX x2 #### [facility] - [place] [address] BARBITURATE SCREEN, URINE Negative Normal NEGATIVE [facility] Comment on above: Result Comment: Nega tive cut-off concentration <200 ng/mL Performed By: #### C MP, PTT, CKMB 1, PT, CBC, TROP 1, UDS, CPK 1, UA w RFX x2 #### [facility] - [place] [address] BENZODIAZEPINES SCREEN,URINE Negative Normal NEGATIVE [facility] Comment on above: Result Comment: Nega tive cut-off concentration <200 ng/mL Performed By: #### C MP, PTT, CKMB 1, PT, CBC, TROP 1, UDS, CPK 1, UA w RFX x2 #### [facility] [place] [address] BUPRENORPHINE SCREEN,URINE Negative Normal NEGATIVE [facility] Comment on above: Result Comment: Nega tive cut-off concentration <10 ng/mL Performed By: #### C MP, PTT, CKMB 1, PT, CBC, TROP 1, UDS, CPK 1, UA w RFX x2 #### Main Lab - [facility] [address] [place] [address] CANNABINOID SCREEN,URINE Negative Normal NEGATIVE [facility] Comment on above: Result Comment: Nega tive cut-off concentration <50 ng/mL Performed By: #### C MP, PTT, CKMB 1, PT, CBC, TROP 1, UDS, CPK 1, UA w RFX x2 #### [facility] - [place] [address] COCAINE SCREEN,URINE Negative Normal NEGATIVE [facility] Comment on above: Result Comment: Nega tive cut-off concentration <300 ng/mL Performed By: #### C MP, PTT, CKMB 1, PT, CBC, TROP 1, UDS, CPK 1, UA w RFX x2 #### [facility] - [place] [address] METHADONE SCREEN,URINE Negative Normal NEGATIVE [facility] Comment on above: Result Comment: Nega tive cut-off concentration <300 ng/mL Performed By: #### C MP, PTT, CKMB 1, PT, CBC, TROP 1, UDS, CPK 1, UA w RFX x2 #### [facility] - [place] [address] OPIATE SCREEN,URINE Negative Normal NEGATIVE [facility] Comment on above: Result Comment: Nega tive cut-off concentration <300 ng/mL Performed By: #### C MP, PTT, CKMB 1, PT, CBC, TROP 1, UDS, CPK 1, UA w RFX x2 #### [facility] - [place] [address] OXYCODONE SCREEN,URINE Negative Normal NEGATIVE [facility] Comment on above: Result Comment: Nega tive cut-off concentration <300 ng/mL Performed By: #### C MP, PTT, CKMB 1, PT, CBC, TROP 1, UDS, CPK 1, UA w RFX x2 #### [facility] - [place] [address] PHENCYCLIDINE SCREEN,URINE Negative Normal NEGATIVE [facility] Comment on above: Result Comment: Nega tive cut-off concentration <25 ng/mL Performed By: #### C MP, PTT, CKMB 1, PT, CBC, TROP 1, UDS, CPK 1, UA w RFX x2 #### Main Lab - [facility] [place], [place] [address] ED Physician Documentationon 05-25-2019 ED Physician Documentation [facility] [place] [address] Physician Documenation Signed:[id number] Name: JOHNATHAN GONZALEZ MRUN: [id number] : 1975 Loc: ED Age / Sex: 44/ M Adm Status: REG ER Adm Date:05/25/19 Room/Bed: HPI: Altered Mental Status - Time Seen By Provider Time Seen by Provider: 05/25/19 19:15 - General Information Information source:: Unable to Obtain, Emergency Med Personnel Patient limitations: Altered Mental Status - History of Present Illness Chief complaint: Altered Mental Status Initial narrative: 44 old male found unresponsive. EMS was called by friend when they attempted to reach her multiple times without success. Unknown last normal. Patient was found unresponsive face first on the floor. Has bruising to left side of his face. Was flaccid on the left side. Patient unable to verbalize. He was hypoxic in the 80s when EMS found him. They were unable to place an IV so a left IO was placed. He was given Narcan which caused some emesis but no change in mental status. Patient unable to give history at this time due to medical status 05/25/19 19:19 MD complaint: Altered Mental Status, Unresponsiveness - Allergies Allergies/Adverse reactions: Allergies Allergy/AdvReac Type Severity Reaction Status Date / Time No Known Allergies Allergy Verified 05/25/19 19:38 Past Medical History - Available ancillary/Nurse notes reviewed History reviewed and agreed with:: Yes Past EENT history: Negative Past EENT surgeries/treatments: Oral Surgery Past neurological history: Negative Past neurological surgeries/treatments: Negative Past cardiovascular history: Hypertension Past cardiovascular surgeries/treatments:: Negative Past respiratory history: Negative Past respiratory surgeries/treatments:: Negative Past gastrointestinal history: Negative Past genitourinary history: Negative Past Genitourinary surgeries/treatments: Negative Past musculoskeletal history: Back Injury Past musculoskeletal surgeries/treatments: Negative Past endocrine history: Negative Past endocrine surgeries/treatments: Negative Past male reproductive history: Negative Past male reproductive surgeries/treatments:: Negative Hemotologic: Negative Psychiatric: Negative Psychiatric Treatments: Negative Other surgeries/treatments: Other Other surgeries/treatments details: left arm injury - Social History Smoking status: Never Smoker Second hand smoke exposure?: No Alcohol use- current or past use: Yes Review of Systems Limitations: Yes ROS unobtainable due to patient's medical condition .: I have reviewed available Ancillary/Nursing Staff documentation. General Exam - General Limitations: Present: Altered Mental Status General appearance: Present: Obtunded - Other Other exam information: Nursing notes were reviewed and agreed GEN: Well developed, well nourished, obtunded, is moving his right arm across his face and pulling his nasal cannula off but otherwise does not respond to commands or stimuli. Has emesis in his hair and face HEAD: normocephalic, bruising left lateral face and head EYE: PERRL, does have some rightward movement of the eyes, conjunctivae clear, anicteric ENT: External nose normal, external ear normal NECK: Trachea midline, no masses, no lymphadenopathy CV: Bradycardic and irregular, no murmurs, rubs, or gallops PULM: no respiratory distress, breath sounds equal and clear, CHEST: No tenderness, no crepitus ABD: no tenderness to palpation, no masses, no rebound/guarding EXT: full range of motion, no deformity, no edema NEURO: Obtunded, is moving his right arm and pulling items off his face but does not respond to stimuli. Flaccid left face. Flaccid left arm and leg. Does have purposeful movements of the right arm. Has clonus the left leg SKIN: Warm, dry, no rashes or lesions noted PSYCH: Obtunded MDM: Altered Mental Status - Medical Decision Making Narrative: Patient arrives with unknown down time in significant left sided paralysis. He is obtunded and had some emesis after the Narcan. He has significant clonus the left lower extremity. She was sent for stat CT head and neck. Stat CT of the head shows no bleeding but appears to show a large right MCA distribution ischemic infarct. After discussion with his ex- and friends think the last a normal sometime last night or this morning. After CT he was intubated without any issues. He is still coughing and moving his right side although has no movement of the left side. He was evaluated by Dr. Barron of the stroke neurology team. Decision was made to transport directly to [place] emergency department. I had multiple discussions with patient's family. He was given propofol as well as Versed and vecuronium due to signifi cant coughing and irritation. Plan to transfer in critical condition - Differential Diagnosis Diff Dx: Altered Mental Status: CVA, Hyperthermia, Hypoglycemia, Hypothermia, Injury, Intoxication, Intracranial Bleed, Medication Reaction, Meningitis, Metabolic Disorder, Overdose, Post-Ictal, Seizure, Sepsis, TIA - Nursing Notes Nursing notes reviewed: Yes - Medical Records Medical records reviewed: Yes - Lab Data Lab results reviewed: Yes Result diagrams: 05/25/19 19:30 05/25/19 19:30 Lab results narrative: Lab Results 05/25/19 05/25/19 05/25/19 Range/Units 19:30 19:30 19:30 WBC 20.1 H (4.0-10.5) 10 3/uL RBC 5.06 (4.38-5.71) x10 6/uL Hgb 15.2 (12.9-16.6) g/dL Hct 43.3 (38.7-49.8) % MCV 85.7 (78.0-100.0) fL MCH 30.1 (27.0-31.0) pg MCHC 35.1 (32.0-36.0) g/dL RDW 13.4 (11.5-14.0) % Plt Count 271 (150-450) 10 3/uL MPV 7.4 (6.0-9.5) fl Neut % (Auto) 89.3 H (36.0-66.0) % Lymph % (Auto) 5.8 L (24.0-44.0) % [place] % (Auto) 4.8 (1.7-9.3) % Eos % (Auto) 0.0 (0.0-5.0) % Baso % (Auto) 0.1 (0.0-1.0) % Neut # (Auto) 18.0 H (1.5-6.7) 10 3/uL Lymph # (Auto) 1.2 (1.0-3.5) 10 3/uL [place] # (Auto) 1.0 H (0.2-0.8) 10 3/uL Eos # (Auto) 0.0 (0.0-0.7) 10 3/uL Baso # (Auto) 0.0 (0.0-0.2) 10 3/uL PT 13.2 (12.0-14.5) SEC INR 1.0 APTT 25.1 (24.1-41.2) SEC Sodium 138 (137-145) mmol/L Potassium 4.3 (3.6-5.0) mmol/L Chloride 103 (98-107) mmol/L Carbon Dioxide 29 (22-31) mmol/L Anion Gap 10 (9-18) mmol/L BUN 15 (7-21) mg/dL Creatinine 1.26 (0.80-1.30) mg/dL Estimated Creat Clear 73.26 Estimated GFR mL/min > 60.000 mL/min Patient Age 44 Years BUN/Creatinine Ratio 11.9 (5.0-42.0) Ratio Glucose 131 H (70-99) mg/dL Calcium 8.8 (8.4-10.2) mg/dL Total Bilirubin 0.8 (0.2-1.3) mg/dL AST 28 (14-50) U/L ALT 23 (7-56) U/L Alkaline Phosphatase 72 (43-122) U/L Creatine Kinase 629 H (55-170) U/L CK-MB (Mass) (0.0-3.7) ng/mL Troponin I (0.0-0.03) ng/mL Total Protein 7.3 (6.3-8.2) g/dL Albumin 3.6 L (3.9-5.0) g/dL Globulin 3.7 g/dL Albumin/Globulin Ratio 1.0 L (1.1-1.8) Ratio Urine Color Urine Clarity Urine pH (5.0-8.0) Ur Specific [place] (<1.029) SP.GR. Urine Protein (NEGATIVE) mg/dL Urine Glucose (UA) (NEGATIVE) mg/dL Urine Ketones (NEGATIVE) mg/dL Urine Occult Blood (NEGATIVE) Urine Nitrite (NEGATIVE) Urine Urobilinogen (<2 mg/dL) mg/dL Ur Leukocyte Esterase (NEGATIVE) Urine RBC /HPF Urine Culture Reflexed Urine Opiates Screen (NEGATIVE) Ur Buprenorphine Scrn (NEGATIVE) Ur Oxycodone Screen (NEGATIVE) Urine Methadone Screen (NEGATIVE) Ur Barbiturates Screen (NEGATIVE) Ur Phencyclidine Scrn (NEGATIVE) Ur Amphetamines Screen (NEGATIVE) U Benzodiazepines Scrn (NEGATIVE) Urine Cocaine Screen (NEGATIVE) U Marijuana (THC) Screen (NEGATIVE) 05/25/19 05/25/19 05/25/19 Range/Units 19:30 19:42 19:42 WBC (4.0-10.5) 10 3/uL RBC (4.38-5.71) x10 6/uL Hgb (12.9-16.6) g/dL Hct (38.7-49.8) % MCV (78.0-100.0) fL MCH (27.0-31.0) pg MCHC (32.0-36.0) g/dL RDW (11.5-14.0) % Plt Count (150-450) 10 3/uL MPV (6.0-9.5) fl Neut % (Auto) (36.0-66.0) % Lymph % (Auto) (24.0-44.0) % Broome % (Auto) (1.7-9.3) % Eos % (Auto) (0.0-5.0) % Baso % (Auto) (0.0-1.0) % Neut # (Auto) (1.5-6.7) 10 3/uL Lymph # (Auto) (1.0-3.5) 10 3/uL Broome # (Auto) (0.2-0.8) 10 3/uL Eos # (Auto) (0.0-0.7) 10 3/uL Baso # (Auto) (0.0-0.2) 10 3/uL PT (12.0-14.5) SEC INR APTT (24.1-41.2) SEC Sodium (137-145) mmol/L Potassium (3.6-5.0) mmol/L Chloride (98-107) mmol/L Carbon Dioxide (22-31) mmol/L Anion Gap (9-18) mmol/L BUN (7-21) mg/dL Creatinine (0.80-1.30) mg/dL Estimated Creat Clear Estimated GFR mL/min mL/min Patient Age Years BUN/Creatinine Ratio (5.0-42.0) Ratio Glucose (70-99) mg/dL Calcium (8.4-10.2) mg/dL Total Bilirubin (0.2-1.3) mg/dL AST (14-50) U/L ALT (7-56) U/L Alkaline Phosphatase (43-122) U/L Creatine Kinase (55-170) U/L CK-MB (Mass) 2.9 (0.0-3.7) ng/mL Troponin I < 0.03 (0.0-0.03) ng/mL Total Protein (6.3-8.2) g/dL Albumin (3.9-5.0) g/dL Globulin g/dL Albumin/Globulin Ratio (1.1-1.8) Ratio Urine Color Yellow Urine Clarity Clear Urine pH 6.0 (5.0-8.0) Ur Specific [place] 1.028 (<1.029) SP.GR. Urine Protein Negative (NEGATIVE) mg/dL Urine Glucose (UA) Negative (NEGATIVE) mg/dL Urine Ketones 80 H (NEGATIVE) mg/dL Urine Occult Blood Negative (NEGATIVE) Urine Nitrite Negative (NEGATIVE) Urine Urobilinogen Negative (<2 mg/dL) mg/dL Ur Leukocyte Esterase Negative (NEGATIVE) Urine RBC 4-10 H /HPF Urine Culture Reflexed Cult not indicated Urine Opiates Screen Negative (NEGATIVE) Ur Buprenorphine Scrn Negative (NEGATIVE) Ur Oxycodone Screen Negative (NEGATIVE) Urine Methadone Screen Negative (NEGATIVE) Ur Barbiturates Screen Negative (NEGATIVE) Ur Phencyclidine Scrn Negative (NEGATIVE) Ur Amphetamines Screen Negative (NEGATIVE) U Benzodiazepines Scrn Negative (NEGATIVE) Urine Cocaine Screen Negative (NEGATIVE) U Marijuana (THC) Screen Negative (NEGATIVE) - Radiology Data Radiology results reviewed: Yes Radiology results narrative: Radiology Impressions Cervical Spine CT 05/25/19 19:15 IMPRESSION: No acute abnormality of the cervical spine. However there is moderate degenerative disc changes C5-6. Head CT 05/25/19 19:15 IMPRESSION: Dense right middle cerebral artery M1 segment suspicious for acute thrombosis. Increased density in the distal right internal carotid artery as well. Findings suggest acute ischemia involving the right middle cerebral artery territory with low attenuation in the right cerebral role cortex as detailed above. Mild edema noted in this region along with mild effacement of the right lateral ventricle. No midline shift. No acute bleed. Communications: The above critical findings were communicated personally by Dr. Sinai Du to Dr.Kennah nielson at 7:44 p.m. RECOMMENDATIONS: CTA of the head neck is advised Procedures - Intubation Time out performed: Yes Sedative: Etomidate Amount given (mg): 20 Paralytic: Succinylcholine Amount given (mg): 100 Laryngoscope: Aly Size: 4 ET tube size (Latvian): 8 ET tube uncuffed: No Tube secured depth (cm): 24 Tube secured location: Teeth Tube placement confirmation: Visualized Tube Passing Through Cords, Equal Breath Sounds Bilaterally, No Breath Sounds Over Epigastrum, Confirmation by Capnometry Patient tolerated procedure: Well Complications: None Course of Treatment Vital Signs 05/25/19 05/25/19 19:15 19:16 Temperature 97.4 F L Pulse Rate 63 Pulse Rate [ 69 monitor] Respiratory 12 Rate O2 Sat by Pulse 98 Oximetry Critical care time (minutes)-Excludes time required for other billable procedures: - Course Orders: Orders Category Date Time Status Activity: Bedrest QSHIFT Care 05/25/19 19:15 Active Apply Window Draper STAT Care 05/25/19 19:15 Completed Continuous Pulse Oximetry: ED STAT Care 05/25/19 19:15 Active ED Window Draper Q2H Care 05/25/19 19:15 Active EKG - STAT Care 05/25/19 19:15 Completed Glucose Meter Check STAT Care 05/25/19 19:15 Active IV Access: Peripheral Line ONETIME Care 05/25/19 19:15 Active Intubation ONETIME Care 05/25/19 19:51 Active Maintain NPO status (ED) Ongoing Care 05/25/19 19:15 Active NG Tube: Insertion ONETIME Care 05/25/19 19:54 Active NG/OG Tube: Management QSHIFT Care 05/25/19 19:54 Active Neurological Check Q1HR Care 05/25/19 19:15 Active Notify Physician VS / I O PRN Care 05/25/19 19:15 Active Stroke Alert ONETIME Care 05/25/19 19:15 Active Teach: Activity ONETIME Care 05/25/19 19:15 Active Vital Signs Q1HR Care 05/25/19 19:[address] CERVICAL SPINE W/O CONTRAST [CT] Stat Exams 05/25/19 19:[address] HEAD W/O CONTRAST [CT] Stat Exams 05/25/19 19:15 Draft EKG Stat Exams 05/25/19 19:15 Draft XR ABDOMEN, KUB 1 VIEW [RAD] Stat Exams 05/25/19 19:54 Ordered XR PORTABLE CHEST (1VIEW) [RAD] Stat Exams 05/25/19 19:15 Ordered CBC WITH AUTO DIFF Stat Lab 05/25/19 19:30 Completed COMPREHENSIVE METABOLIC PANEL Stat Lab 05/25/19 19:30 Completed CREATINE KINASE MB Stat Lab 05/25/19 19:30 Completed CREATINE KINASE Stat Lab 05/25/19 19:30 Completed DRUG SCREEN,URINE Stat Lab 05/25/19 19:42 Results PARTIAL THROMBOPLASTIN TIME Stat Lab 05/25/19 19:30 Completed POC GLUCOSE METER Routine Lab 05/25/19 19:15 Ordered PT WITH INR Stat Lab 05/25/19 19:30 Completed TROPONIN I Stat Lab 05/25/19 19:30 Completed URINE PROTOCOL Stat Lab 05/25/19 19:42 Completed ER Intubation Kit Med 05/25/19 19:35 Discontinued 1 ea .ROUTE .STK-MED ONE Midazolam HCl [Versed] Med 05/25/19 19:58 Discontinued 5 mg IV ONCE ONE Midazolam HCl [Versed] Med 05/25/19 20:09 Once 5 mg IV ONCE ONE Propofol Premix 10Mg/ml [Diprivan] Med 05/25/19 19:55 Active 1,000 mg in 100 ml IV .PER ORDER Sodium Chloride 0.9% [Normal Saline] 1,000 ml Med 05/25/19 20:00 Active IV 150 mls/hr Vecuronium [place] Med 05/25/19 20:07 Discontinued 10 mg IV ONCE STA ED Oxygen Per Protocol [RESP] PRN Resp. 05/25/19 19:15 Active ED: O2 Set-up Charge [RESP] ONETIME Resp. 05/25/19 19:15 Active Ventilator Set up [RESP] ONETIME Resp. 05/25/19 19:51 Active Disposition Decision - General Final diagnosis: Acute ischemic cerebrovascular accident (CVA) involving anterior cerebral artery territory Disposition: XFER SHT-TRM HOSP Time of disposition: 20:16 Condition: Critical New prescriptions/home medications: No Action NK 05/25/192016 CC: Masha PARK, Leoncio Burgos; PCP,None Normal [facility] PARTIAL THROMBOPLASTIN TIMEo n 05-25-2019 aPTT Coag (Bld) [Time] 25.1 s Normal 24.1-41.2 [facility] Comment on above: Performed By: #### C MP, PTT, CKMB 1, PT, CBC, TROP 1, UDS, CPK 1, UA w RFX x2 #### Main Lab - [facility] [place], [place] [address] PT WITH INRon 05-25-2019 INR Coag (PPP) [Relative time] 1.0 {INR} Normal [facility] Comment on above: Result Comment: CHAD MMENDED RANGES FOR INR: Therapeutic range for standard therapy INR: 2.0-3.0 Therapeutic range for high dose therapy INR: 2.5-3.5 Performed By: #### C MP, PTT, CKMB 1, PT, CBC, TROP 1, UDS, CPK 1, UA w RFX x2 #### Main Lab - [facility] [address] [place] [id number] PT Coag (PPP) [Time] 13.2 s Normal 12.0-14.5 [facility] Comment on above: Performed By: #### C MP, PTT, CKMB 1, PT, CBC, TROP 1, UDS, CPK 1, UA w RFX x2 #### Main Lab - [facility] [address] [place] [id number] TROPONIN Ion 05-25-2019 Troponin I.cardiac [Mass/Vol] ng/mL Normal 0.0-0.03 [facility] Comment on above: Result Comment: Refe rence Interval < or = 0.03 ng/mL Clinical Correlation Needed 0.03 - 0.11 ng/mL AMI Cutoff, Presumptive = or > 0.12 ng/mL Performed By: #### C MP, PTT, CKMB 1, PT, CBC, TROP 1, UDS, CPK 1, UA w RFX x2 #### Main Lab - [facility] [place], [place] [address] URINE PROTOCOLon 05-25-2019 BLOOD,URINE Negative Normal NEGATIVE [facility] Comment on above: Performed By: #### C MP, PTT, CKMB 1, PT, CBC, TROP 1, UDS, CPK 1, UA w RFX x2 #### Main Lab - [facility] [place], [place] [address] Clarity (U) CLEAR Normal [facility] Comment on above: Performed By: #### C MP, PTT, CKMB 1, PT, CBC, TROP 1, UDS, CPK 1, UA w RFX x2 #### Main Lab - [address] [address] Color (U) YELLOW Normal [facility] Comment on above: Performed By: #### C MP, PTT, CKMB 1, PT, CBC, TROP 1, UDS, CPK 1, UA w RFX x2 #### Main Lab - [address] [address] Glucose Ql (U) Negative Normal NEGATIVE [facility] Comment on above: Performed By: #### C MP, PTT, CKMB 1, PT, CBC, TROP 1, UDS, CPK 1, UA w RFX x2 #### [facility] Lab - [address] [address] Ketones Ql (U) 80 mg/dL Abnormal NEGATIVE [facility] Comment on above: Performed By: #### C MP, PTT, CKMB 1, PT, CBC, TROP 1, UDS, CPK 1, UA w RFX x2 #### [facility] Lab - [address] [address] Leukocyte esterase Test strip Ql (U) Negative Normal NEGATIVE [facility] Comment on above: Performed By: #### C MP, PTT, CKMB 1, PT, CBC, TROP 1, UDS, CPK 1, UA w RFX x2 #### [facility] Lab - [address] [address] NITRITE,URINE Negative Normal NEGATIVE [facility] Comment on above: Performed By: #### C MP, PTT, CKMB 1, PT, CBC, TROP 1, UDS, CPK 1, UA w RFX x2 #### [facility] Lab - [address] [address] pH (U) 6.0 [pH] Normal 5.0-8.0 [facility] Comment on above: Performed By: #### C MP, PTT, CKMB 1, PT, CBC, TROP 1, UDS, CPK 1, UA w RFX x2 #### Main Lab - [facility] [address] Protein (U) [Mass/Vol] Negative Normal NEGATIVE [facility] Comment on above: Performed By: #### C MP, PTT, CKMB 1, PT, CBC, TROP 1, UDS, CPK 1, UA w RFX x2 #### [facility] Lab - [address] [address] RBC LM.HPF (Urine sed) [#/Area] 4-10 Abnormal [facility] Comment on above: Performed By: #### C MP, PTT, CKMB 1, PT, CBC, TROP 1, UDS, CPK 1, UA w RFX x2 #### [facility] Lab - [address] [address] REFLEX TO URINE CULTURE CULT NOT INDICATED Normal [facility] Comment on above: Performed By: #### C MP, PTT, CKMB 1, PT, CBC, TROP 1, UDS, CPK 1, UA w RFX x2 #### [facility] Lab - [address] [address] Specific gravity (U) [Rel density] 1.028 SP.GR. Normal <1.029 [facility] Comment on above: Performed By: #### C MP, PTT, CKMB 1, PT, CBC, TROP 1, UDS, CPK 1, UA w RFX x2 #### Main Lab - [facility] [address] UROBILINOGEN,URINE Negative Normal <2 mg/dL [facility] Comment on above: Performed By: #### C MP, PTT, CKMB 1, PT, CBC, TROP 1, UDS, CPK 1, UA w RFX x2 #### [facility] Lab - [address] [address] Waveform Imaging Reporton Waveform Imaging Report [facility] [address] [place] [address] Waveform Imaging Report : [id number] Signed Name: JOHNATHAN GONZALEZ MRUN: [id number] : 1975 Loc: ED Age / Sex: 44 / M ADM Status: REG ER ADM Date: 05/25/19 Room/Bed: Ordering Physician: Leoncio Flanagan MD Procedure: EKG Order Number(s): [id number] Ordered Date: 05/25/19 Ordered Time: 1914 Test Date: 2019-05-25 19:16:14 Pat Name: JOHNATHAN GONZALEZ Department: ED 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 Normal NC interval. Normal QRS. No acute ST or T-wave abnormalities. Questionable LVH Electronically Signed On 05-25-2019 20:43:02 EST by Leoncio Flanagan Dictated By: Leoncio Flanagan MD Dictated Date/Time: 05/25/191915 Signed By: Leoncio Flanagan MD, MD Signed Date/Time: 05/25/192042 Transcribed Date/Time: Normal [facility] XR PORTABLE CHEST (1VIEW)on 05-25-2019 XR PORTABLE CHEST (1VIEW) [facility] [address] [place], [place] [id number] Diagnostic Imaging Report : [id number] Signed Name: JOHNATHAN GONZALEZ MRUN: [id number] : 1975 Loc: ED Age / Sex: 44 / M ADM Status: REG ER ADM Date: 05/25/19 Room/Bed: Ordering Physician: Leoncio Flanagan MD Procedure: XR PORTABLE CHEST (1VIEW) Order Number(s): [id number] Ordered Date: 05/25/19 Ordered Time: 1914 EXAMINATION: ONE XRAY VIEW OF THE CHEST 05/25/2019 8:13 pm COMPARISON: 06/01/2016 HISTORY: Stroke Evaluation FINDINGS: Moderately elevated left hemidiaphragm. Mild interstitial congestion. Top-normal cardiac size. ET tube is 3 cm of the trent. Feeding tube is below the diaphragm. Normal bony structures. IMPRESSION: Mild interstitial congestion. Dictated By: Sinai Du MD Dictated Date/Time: 05/25/192017 Signed By: Sinai Du MD, MD Signed Date/Time: 05/25/192021 Transcribed Date/Time: 05/25/192017 Normal [facility] Vital Signs Date Time Vital Sign Value Performing Clinician Facility 10-28-2024 15:09-0400 Body height 172.72 cm LILA HEWITT MD Work Phone: [facility] 10-28-2024 15:09-0400 Body weight 86.91 kg LILA HEWITT MD Work Phone: [facility] 10-28-2024 12:00-0400 Body temperature 98.5 [degF] LILA HEWITT MD Work Phone: [facility] 10-28-2024 12:00-0400 Heart rate 72 /min LILA HEWITT MD Work Phone: [facility] 10-28-2024 11:29-0400 Diastolic blood pressure 101 mm[Hg] LILA HEWITT MD Work Phone: [facility] 10-28-2024 11:29-0400 Respiratory rate 16 /min LILA HEWITT MD Work Phone: [facility] 10-28-2024 11:29-0400 SaO2% (BldA) [Mass fraction] 96 % LILA HEWITT MD Work Phone: [facility] 10-28-2024 11:29-0400 Systolic blood pressure 127 mm[Hg] LILA HEWITT MD Work Phone: [facility] 10-22-2024 19:16-0400 Body temperature 98.4 [degF] [facility] 10-22-2024 19:16-0400 Diastolic blood pressure 75 mm[Hg] [facility] 10-22-2024 19:16-0400 Heart rate 83 /min [facility] 10-22-2024 19:16-0400 Respiratory rate 16 /min [employer] [facility] 10-22-2024 19:16-0400 SaO2% (BldA) [Mass fraction] 99 % [facility] 10-22-2024 19:16-0400 Systolic blood pressure 118 mm[Hg] [facility] 10-22-2024 15:39-0400 Body height 170.2 cm [facility] 10-22-2024 15:39-0400 Body mass index (BMI) [Ratio] 34.46 kg/m2 [facility] 10-22-2024 15:39-0400 Body weight 99.79 kg [facility] 10-02-2024 18:54-0400 Diastolic blood pressure 95 mm[Hg] Jenni Campbell MD Work Phone: [facility] 10-02-2024 18:54-0400 Heart rate 92 /min Jenni Campbell MD Work Phone: [facility] 10-02-2024 18:54-0400 Respiratory rate 17 /min Jenni Campbell MD Work Phone: [facility] 10-02-2024 18:54-0400 SaO2% (BldA) [Mass fraction] 98 % Jenni Campbell MD Work Phone: [facility] 10-02-2024 18:54-0400 Systolic blood pressure 169 mm[Hg] Jenni Campbell MD Work Phone: [facility] 10-02-2024 16:53-0400 Body height 170.2 cm Jenni Campbell MD Work Phone: [facility] 10-02-2024 16:53-0400 Body mass index (BMI) [Ratio] 31.32 kg/m2 Jenni Campbell MD Work Phone: [facility] 10-02-2024 16:53-0400 Body temperature 98.01 [degF] Jenni Campbell MD Work Phone: [facility] 10-02-2024 16:53-0400 Body weight 90.72 kg Jenni Campbell MD Work Phone: [facility] 10-02-2023 08:10-0400 Body temperature 98.71 [degF] Wilton Rankin MD Work Phone: [facility] 10-02-2023 08:10-0400 Diastolic blood pressure 80 mm[Hg] Wilton Rankin MD Work Phone: [facility] 10-02-2023 08:10-0400 Heart rate 79 /min Wilton Rankin MD Work Phone: [facility] 10-02-2023 08:10-0400 SaO2% (BldA) [Mass fraction] 94 % Wilton Rankin MD Work Phone: [facility] 10-02-2023 08:10-0400 Systolic blood pressure 111 mm[Hg] Wilton Rankin MD Work Phone: [facility] 10-02-2023 04:00-0400 Respiratory rate 19 /min Wilton Rankin MD Work Phone: [facility] 10-01-2023 06:00-0400 Body mass index (BMI) [Ratio] 28.34 kg/m2 Wilton Rankin MD Work Phone: [facility] 10-01-2023 06:00-0400 Body weight 89.6 kg Wilton Rankin MD Work Phone: [facility] 09-26-2023 11:03-0400 Body height 177.8 cm Wilton Rankin MD Work Phone: [facility] 06-28-2023 08:14-0500 Body temperature 99 [degF] MD GAURAV SPEARS Work Phone: [facility] 06-28-2023 08:14-0500 Diastolic blood pressure 96 mm[Hg] MD GAURAV SPEARS Work Phone: [facility] 06-28-2023 08:14-0500 Heart rate 78 /min MD GAURAV SPEARS Work Phone: [facility] 06-28-2023 08:14-0500 Respiratory rate 18 /min MD GAURAV SPEARS Work Phone: [facility] 06-28-2023 08:14-0500 SaO2% (BldA) [Mass fraction] 94 % MD GAURAV SPEARS Work Phone: [facility] 06-28-2023 08:14-0500 Systolic blood pressure 135 mm[Hg] MD GAURAV SPEARS Work Phone: [facility] 06-28-2023 06:00-0500 Body height 182.88 cm MD GAURAV SPEARS Work Phone: [facility] 06-28-2023 06:00-0500 Body weight 87.68 kg MD GAURAV SPEARS Work Phone: [facility] 06-27-2023 04:34-0500 Body weight 88.68 kg MD GAURAV SPEARS Work Phone: [facility] 06-27-2023 04:06-0500 Body temperature 98.3 [degF] MD GAURAV SPEARS Work Phone: [facility] 06-27-2023 04:06-0500 Diastolic blood pressure 97 mm[Hg] MD GAURAV SPEARS Work Phone: [facility] 06-27-2023 04:06-0500 Heart rate 77 /min MD GAURAV SPEARS Work Phone: [facility] 06-27-2023 04:06-0500 Respiratory rate 18 /min MD GAURAV SPEARS Work Phone: [facility] 06-27-2023 04:06-0500 SaO2% (BldA) [Mass fraction] 92 % MD GAURAV SPEARS Work Phone: [facility] 06-27-2023 04:06-0500 Systolic blood pressure 140 mm[Hg] MD GAURAV SPEARS Work Phone: [facility] 06-26-2023 04:00-0500 Respiratory rate 17 /min MD GAURAV SPEARS Work Phone: [facility] 06-25-2023 23:34-0500 Body temperature 99.3 [degF] MD GAURAV SPEARS Work Phone: [facility] 06-25-2023 23:34-0500 Diastolic blood pressure 93 mm[Hg] MD GAURAV SPEARS Work Phone: [facility] 06-25-2023 23:34-0500 Heart rate 79 /min MD GAURAV SPEARS Work Phone: [facility] 06-25-2023 23:34-0500 SaO2% (BldA) [Mass fraction] 95 % MD GAURAV SPEARS Work Phone: [facility] 06-25-2023 23:34-0500 Systolic blood pressure 126 mm[Hg] MD GAURAV SPEARS Work Phone: [facility] 06-25-2023 06:36-0500 Body height 182.88 cm MD GAURAV SPEARS Work Phone: [facility] 06-25-2023 06:36-0500 Body weight 91.72 kg MD GAURAV SPEARS Work Phone: [facility] 06-25-2023 05:10-0500 Heart rate 62 /min MD GAURAV SPEARS Work Phone: [facility] 06-25-2023 05:10-0500 SaO2% (BldA) [Mass fraction] 97 % MD GAURAV SPEARS Work Phone: [facility] 06-25-2023 05:00-0500 Diastolic blood pressure 95 mm[Hg] MD GAURAV SPEARS Work Phone: [facility] 06-25-2023 05:00-0500 Systolic blood pressure 134 mm[Hg] MD GAURAV SPEARS Work Phone: [facility] 06-25-2023 03:51-0500 Respiratory rate 16 /min MD GAURAV SPEARS Work Phone: [facility] 06-25-2023 03:19-0500 Body temperature 98.5 [degF] MD GAURAV SPEARS Work Phone: [facility] 06-25-2023 03:19-0500 Body weight 81.65 kg MD GAURAV SPEARS Work Phone: [facility] 06-24-2023 16:35-0500 Body height 175.26 cm MD GAURAV SPEARS Work Phone: [facility] 06-24-2023 16:35-0500 Body weight 84.37 kg MD GAURAV SPEARS Work Phone: [facility] 06-24-2023 15:33-0500 Body temperature 98.5 [degF] MD GAURAV SPEARS Work Phone: [facility] 06-24-2023 15:33-0500 Diastolic blood pressure 97 mm[Hg] MD GAURAV SPEARS Work Phone: [facility] 06-24-2023 15:33-0500 Heart rate 77 /min MD GAURAV SPEARS Work Phone: [facility] 06-24-2023 15:33-0500 Respiratory rate 18 /min MD GAURAV SPEARS Work Phone: [facility] 06-24-2023 15:33-0500 SaO2% (BldA) [Mass fraction] 92 % MD GAURAV SPEARS Work Phone: [facility] 06-24-2023 15:33-0500 Systolic blood pressure 142 mm[Hg] MD GAURAV SPEARS Work Phone: [facility] 06-10-2023 20:26-0500 Diastolic blood pressure 92 mm[Hg] MD GAURAV SPEARS Work Phone: [facility] 06-10-2023 20:26-0500 Systolic blood pressure 122 mm[Hg] MD GAURAV SPEARS Work Phone: [facility] 06-10-2023 18:20-0500 Heart rate 60 /min MD GAURAV SPEARS Work Phone: [facility] 06-10-2023 18:20-0500 SaO2% (BldA) [Mass fraction] 96 % MD GAURAV SPEARS Work Phone: [facility] 06-10-2023 16:27-0500 Body temperature 97.3 [degF] MD GAURAV SPEARS Work Phone: [facility] 06-10-2023 16:27-0500 Body weight 87.91 kg MD GAURAV SPEARS Work Phone: [facility] 06-10-2023 16:27-0500 Respiratory rate 13 /min MD GAURAV SPEARS Work Phone: [facility] 02-11-2023 17:48-0400 Body height 177.8 cm MD TERESA ROMEO Work Phone: [facility] 02-11-2023 17:48-0400 Body weight 85.28 kg MD TERESA ROMEO Work Phone: [facility] 02-11-2023 16:30-0400 Body temperature 97.2 [degF] MD TERESA ROMEO Work Phone: [facility] 02-11-2023 16:30-0400 SaO2% (BldA) [Mass fraction] 94 % MD TERESA ROMEO Work Phone: [facility] 02-11-2023 16:00-0400 Diastolic blood pressure 94 mm[Hg] MD TERESA ROMEO Work Phone: [facility] 02-11-2023 16:00-0400 Systolic blood pressure 127 mm[Hg] MD TERESA ROMEO Work Phone: [facility] 02-11-2023 12:30-0400 Heart rate 59 /min MD TERESA ROMEO Work Phone: [facility] 02-10-2023 19:42-0400 Respiratory rate 13 /min MD TERESA ROMEO Work Phone: [facility] 11-17-2022 02:49-0400 Body height 177.8 cm MD TERESA ROMEO Work Phone: [facility] 11-17-2022 02:49-0400 Body temperature 96.9 [degF] MD TERESA ROMEO Work Phone: [facility] 11-17-2022 02:49-0400 Body weight 86.18 kg MD ETRESA ROMEO Work Phone: [facility] 11-17-2022 02:49-0400 Diastolic blood pressure 94 mm[Hg] MD TERESA ROMEO Work Phone: [facility] 11-17-2022 02:49-0400 Heart rate 68 /min MD TERESA ROMEO Work Phone: [facility] 11-17-2022 02:49-0400 Respiratory rate 16 /min MD TERESA ROMEO Work Phone: [facility] 11-17-2022 02:49-0400 SaO2% (BldA) [Mass fraction] 97 % MD TERESA ROMEO Work Phone: [facility] 11-17-2022 02:49-0400 Systolic blood pressure 139 mm[Hg] MD TERESA ROMEO Work Phone: [facility] 02-16-2022 18:00-0400 SaO2% (BldA) [Mass fraction] 94 % MD TERESA ROMEO Work Phone: [facility] 02-16-2022 16:19-0400 Body height 180.34 cm MD TERESA ROMEO Work Phone: [facility] 02-16-2022 16:19-0400 Body weight 97.52 kg MD TERESA ROMEO Work Phone: [facility] 02-16-2022 16:15-0400 Heart rate 82 /min MD TERESA ROMEO Work Phone: [facility] 02-16-2022 16:15-0400 Respiratory rate 16 /min MD TERESA ROMEO Work Phone: [facility] 02-16-2022 12:45-0400 Body temperature 97.3 [degF] MD TERESA ROMEO Work Phone: [facility] 02-16-2022 12:45-0400 Diastolic blood pressure 94 mm[Hg] MD TERESA ROMEO Work Phone: [facility] 02-16-2022 12:45-0400 Systolic blood pressure 135 mm[Hg] MD TERESA ROMEO Work Phone: [facility] 02-09-2022 23:40-0400 Inhaled oxygen concentration 60 % MD TERESA ROMEO Work Phone: [facility] 02-09-2022 19:00-0400 SaO2% (BldA) [Mass fraction] 97.7 % MD TERESA ROMEO Work Phone: [facility] 05-29-2021 09:05-0500 Reason For Taking VItal Signs DR BRIEN MINER MD [facility] 05-29-2021 07:09-0500 Body temperature 98.24 [degF] DR BRIEN MINER MD [facility] 05-29-2021 07:09-0500 Diastolic blood pressure 74 mm[Hg] DR BRIEN MINER MD [facility] 05-29-2021 07:09-0500 Heart rate 66 /min DR BRIEN MINER MD [facility] 05-29-2021 07:09-0500 Mean blood pressure 87 mm[Hg] DR BRIEN MINER MD [facility] 05-29-2021 07:09-0500 Reason For Taking VItal Signs DR BRIEN MINER MD [facility] 05-29-2021 07:09-0500 Respiratory rate 20 /min DR BRIEN MINER MD [facility] 05-29-2021 07:09-0500 Systolic blood pressure 112 mm[Hg] DR BRIEN IMNER MD [facility] 05-29-2021 04:07-0500 Body temperature 98.96 [degF] DR BRIEN MINER MD [facility] 05-29-2021 04:07-0500 Diastolic blood pressure 84 mm[Hg] DR BRIEN MINER MD [facility] 05-29-2021 04:07-0500 Heart rate 74 /min DR BRIEN MINER MD [facility] 05-29-2021 04:07-0500 Respiratory rate 20 /min DR BRIEN MINER MD [facility] 05-29-2021 04:07-0500 Systolic blood pressure 117 mm[Hg] DR BRIEN MINER MD [facility] 05-28-2021 22:09-0500 Body temperature 98.78 [degF] DR BRIEN MINER MD [facility] 05-28-2021 22:09-0500 Diastolic blood pressure 60 mm[Hg] DR BRIEN MINER MD [facility] 05-28-2021 22:09-0500 Heart rate 71 /min DR BRIEN MINER MD [facility] 05-28-2021 22:09-0500 Mean blood pressure 76 mm[Hg] DR BRIEN MINER MD [facility] 05-28-2021 22:09-0500 Reason For Taking VItal Signs DR BRIEN MINER MD [facility] 05-28-2021 22:09-0500 Respiratory rate 18 /min DR BRIEN MINER MD [facility] 05-28-2021 22:09-0500 Systolic blood pressure 109 mm[Hg] DR BRIEN MINRE MD [facility] 05-28-2021 16:59-0500 Mean blood pressure 98 mm[Hg] DR BRIEN MINER MD [facility] 05-28-2021 04:10-0500 Heart rate 67 /min DR BRIEN MINER MD [facility] 05-27-2021 23:33-0500 Heart rate 70 /min DR BRIEN MINER MD [facility] 05-27-2021 03:58-0500 Heart rate 71 /min DR BRIEN MINER MD [facility] 05-27-2021 03:33-0500 Heart rate 84 /min DR BRIEN MINER MD [facility] 05-26-2021 03:36-0500 Heart rate 83 /min DR BRIEN MINER MD [facility] 05-26-2021 02:33-0500 Body height 182.9 cm ROSAURA NÚÑEZ MD [facility] 05-26-2021 02:33-0500 Body weight 94.9 kg ROSAURA NÚÑEZ MD [facility] 05-26-2021 02:33-0500 Body weight 28.37 kg/m2 ROSAURA NÚÑEZ MD [facility] 05-26-2021 02:30-0500 Body temperature 97.52 [degF] ROSAURA NÚÑEZ MD [facility] 05-26-2021 02:30-0500 Diastolic blood pressure 74 mm[Hg] ROSAURA NÚÑEZ MD [facility] 05-26-2021 02:30-0500 Heart rate 83 /min ROSAURA NÚÑEZ MD [facility] 05-26-2021 02:30-0500 Mean blood pressure 83 mm[Hg] ROSAURA NÚÑEZ MD [facility] 05-26-2021 02:30-0500 Reason For Taking VItal Signs ROSAURA NÚÑEZ MD [facility] 05-26-2021 02:30-0500 Respiratory rate 19 /min ROSAURA NÚÑEZ MD [facility] 05-26-2021 02:30-0500 Systolic blood pressure 102 mm[Hg] ROSAURA NÚÑEZ MD [facility] 05-25-2021 16:30-0500 Diastolic blood pressure 79 mm[Hg] ROSAURA NÚÑEZ MD [facility] 05-25-2021 16:30-0500 Heart rate 86 /min ROSAURA NÚÑEZ MD [facility] 05-25-2021 16:30-0500 Reason For Taking VItal Signs ROSAURA NÚÑEZ MD [facility] 05-25-2021 16:30-0500 Respiratory rate 20 /min ROSAURA NÚÑEZ MD [facility] 05-25-2021 16:30-0500 Systolic blood pressure 120 mm[Hg] ROSAURA NÚÑEZ MD [facility] 05-25-2021 14:24-0500 Diastolic blood pressure 88 mm[Hg] ROSAURA NÚÑEZ MD [facility] 05-25-2021 14:24-0500 Heart rate 86 /min ROSAURA NÚÑEZ MD [facility] 05-25-2021 14:24-0500 Mean blood pressure 99 mm[Hg] ROSAURA NÚÑEZ MD [facility] 05-25-2021 14:24-0500 Respiratory rate 20 /min ROSAURA NÚÑEZ MD [facility] 05-25-2021 14:24-0500 Systolic blood pressure 122 mm[Hg] ROSAURA NÚÑEZ MD [facility] 05-25-2021 08:40-0500 Heart rate 88 /min ROSAURA NÚÑEZ MD [facility] 05-25-2021 07:23-0500 Body temperature 99.32 [degF] ROSAURA NÚÑEZ MD [facility] 05-25-2021 07:23-0500 Heart rate 102 /min ROSAURA NÚÑEZ MD [facility] 10-14-2019 07:16-0400 Body Temperature 97.39 [degF] Milton Rogers [facility] 10-14-2019 07:16-0400 BP Diastolic 88 mm[Hg] Milton Rogers [facility] 10-14-2019 07:16-0400 BP Systolic 133 mm[Hg] Milton Rogers [facility] 10-14-2019 07:16-0400 Pulse (Heart Rate) 72 /min Miltonshirin Rogers [facility] 10-14-2019 07:16-0400 Pulse Oximetry 95 % Milton Rogers [facility] 10-14-2019 07:16-0400 Respiratory Rate 14 /min Milton Rogers [facility] 10-12-2019 05:00-0400 BMI (Body Mass Index) 24.8 kg/m2 Milton Rogers [facility] 10-12-2019 05:00-0400 Body weight 78.4 kg Milton Rogers [facility] 05-26-2019 16:00-0500 Height 177.8 cm Milton Rogers [facility] Encounters Encounter Date Encounter Type Care Provider Facility Start: 03-15-2025 ambulatory [place] [facility] :[facility] Start: 01-15-2025 End: 01-15-2025 Patient encounter procedure Jenn FONSECA [facility] Work Phone: Start: 01-15-2025 End: 01-15-[address] Peng Lan MD Work Phone: [facility] Start: 11-10-2024 ambulatory ROMIE Casper [facility] Start: 11-02-2024 ambulatory ROMIE Casper [facility] Start: 10-26-2024 End: 10-28-2024 Evaluation and management of inpatient LILA HEWITT MD Work Phone: [facility] Start: 10-22-2024 End: 10-22-2024 Emergency department patient visit ANA MARIA SILVA [facility] Comment on above: Corneal abrasion, ri ght, initial encounter (Primary Dx) Start: 10-13-2024 End: 10-13-2024 ambulatory ROMIE Casper [facility] Start: 10-06-2024 ambulatory ROMIE Casper [facility] Start: 10-02-2024 End: 10-02-2024 Emergency department patient visit Jenni Campbell MD Work Phone: [facility] Dept Comment on above: Shortness of breath (Primary Dx) Start: 08-12-2024 End: 08-12-2024 ambulatory CARRIE PARK [facility] Start: 07-08-2024 ambulatory PENG PARK CHALO [facility] Start: 02-17-2024 End: 02-17-2024 Emergency department patient visit SHAYLA VALERA [facility] Start: 10-30-2023 End: 10-30-2023 ambulatory PHYSICIAN NO [facility] Start: 10-30-2023 End: 10-30-2023 Postop follow up visit related to original px Wilton Rankin MD Work Phone: [facility] Comment on above: Skull defect (Primar y Dx) Start: 10-09-2023 Orders Only Jenny Sahu RN [facility] Comment on above: Skull defect (Primar y Dx) Start: 09-26-2023 End: 10-02-2023 Evaluation and management of inpatient [facility] Start: 09-26-2023 End: 10-02-2023 Evaluation and management of inpatient Wilton Rankin MD Work Phone: [facility] Integrated Stroke Unit Low Start: 09-25-2023 Documentation procedure Jenny alvarado RN [facility], Neuroscience Start: 09-04-2023 Admission to [facility], Neuroscience Comment on above: Skull defect (Primar y Dx) Start: 07-19-2023 End: 07-19-[address] KAYA DICK MD Facility:A Start: 06-28-2023 Admission to [facility], Neuroscience Comment on above: Skull defect (Primar y Dx) Start: 06-28-2023 [facility] Start: 06-25-2023 End: 06-28-2023 Evaluation and management of inpatient MD GAURAV SPEARS Work Phone: [facility]LO[facility] Start: 06-22-2023 End: 06-24-2023 Evaluation and management of inpatient MD GAURAV SPEARS Work Phone: [facility] Start: 06-22-2023 End: 06-24-2023 observation encounter MD GAURAV SPEARS Work Phone: [facility] Work Phone: Start: 06-10-2023 End: 06-10-2023 Emergency department patient visit MD GAURAV SPEARS Work Phone: [facility]-ED Start: 06-07-2023 End: 06-08-2023 ambulatory [facility] Start: 05-21-2023 Documentation procedure Jenny alvarado RN [facility], Neuroscience Start: 05-15-2023 End: 05-15-2023 ambulatory PHYSICIAN [facility] Start: 05-15-2023 End: 05-15-2023 Office outpatient visit 15 minutes Wilton Rankin MD Work Phone: [facility], Neuroscience Comment on above: Cerebrovascular acci dent (CVA) due to thrombosis of right middle cerebral artery (HCC) (Primary Dx) Start: 02-10-2023 End: 02-11-2023 Evaluation and management of inpatient MD TERESA ROMEO Work Phone: [facility] Start: 02-10-2023 End: 02-11-2023 observation encounter MD TERESA ROMEO Work Phone: [facility] Work Phone: Start: 11-17-2022 End: 11-17-2022 Emergency department patient visit MD TERESA ROMEO Work Phone: [facility]-ED Start: 02-08-2022 End: 02-16-2022 Evaluation and management of inpatient MD TERESA ROMEO Work Phone: [facility] Start: 05-26-2021 End: 05-29-[address] BRIEN MINER MD [facility] Start: 05-25-2021 End: 05-26-2021 Emergency department patient visit ROSAURA NÚÑEZ MD [facility] Start: 05-25-2019 End: 10-14-2019 Evaluation and management of inpatient [place] Jenni Rogers Work Phone: [facility] Medical Unit 3 Comment on above: Carotid artery disse ction (HCC) (Primary Dx); Cerebrovascular accident (CVA), unspecified mechanism (HCC); Respiratory failure, unspecified chronicity, unspecified whether with hypoxia or hypercapnia (HCC); Cerebrovascular accident (CVA) due to occlusion of right carotid artery (HCC); Dysphagia, unspecified type; Cerebrovascular accident (CVA) due to thrombosis of right carotid artery (HCC); Oropharyngeal dysphagia; Acute encephalopathy; Cognitive impairment; Left leg pain; Left hip pain Procedures Date Procedure Procedure Detail Performing Clinician Start: 11-02-2024 PSA screening SHAYLA OSEI Comment on above: Performed By: #### [id number] #### [facility],[address] [place] [address] Start: 10-28-2024 Electrocardiographic procedure LILA COKER MD Work Phone: Start: 10-26-2024 X-ray of chest anteroposterior view LILA HEWITT MD Work Phone: Start: 10-13-2024 Lipid 1996 panel - Serum or Plasma Start: 10-02-2024 Radiologic exam chest single view Alexis miller Gonzalo IBRAHIM PHYSICAL THERAPY DIRECTOR Work Phone: Start: 10-02-2024 Basic metabolic panel calcium total Gaurav Serna APRN PHYSICAL THERAPY DIRECTOR Work Phone: Start: 10-02-2024 Ecg routine ecg w/least 12 lds trcg only w/o i&r Gaurav Serna APRN PHYSICAL THERAPY DIRECTOR Work Phone: Start: 02-17-2024 Urinalysis SHAYLA OSEI Comment on above: Result Comment: URINALYSIS Performed By: #### [id number] #### [facility],[address] [place], [place] [id number] Start: 10-02-2023 Glucose measurement Wilton Rankin MD Work Phone: Start: 10-02-2023 Blood count complete automated Donovan Trimble PHYSICAL THERAPY DIRECTOR Work Phone: Start: 10-01-2023 Glucose measurement Wilton Rankin MD Work Phone: Start: 10-01-2023 Glucose measurement Wilton Rankin MD Work Phone: Start: 10-01-2023 Glucose measurement Wilton Rankin MD Work Phone: Start: 10-01-2023 Glucose measurement Wilton Rankin MD Work Phone: Start: 10-01-2023 End: 10-01-2023 Blood count complete automated Donovan Trimble PHYSICAL THERAPY DIRECTOR Work Phone: Start: 10-01-2023 Glucose measurement Wilton Rankin MD Work Phone: Start: 09-30-2023 Glucose measurement Wilton Rankin MD Work Phone: Start: 09-30-2023 Glucose measurement Wilton Rankin MD Work Phone: Start: 09-30-2023 Glucose measurement Wilton Rankin MD Work Phone: Start: 09-30-2023 Blood count complete automated Donovan Trimble PHYSICAL THERAPY DIRECTOR Work Phone: Start: 09-30-2023 Glucose measurement Wilton Rankin MD Work Phone: Start: 09-30-2023 End: 09-30-2023 Glucose measurement Wilton Rankin MD Work Phone: Start: 09-29-2023 Glucose measurement Wilton Rankin MD Work Phone: Start: 09-29-2023 Glucose measurement Wilton Rankin MD Work Phone: Start: 09-29-2023 End: 09-29-2023 Glucose measurement Wilton Rankin MD Work Phone: Start: 09-29-2023 Glucose measurement Wilton Rankin MD Work Phone: Start: 09-29-2023 Calcium ionized Donovan Trimble PHYSICAL THERAPY DIRECTOR Work Phone: Start: 09-29-2023 Adult depression screening assessment Jenny Sahu RN Start: 09-28-2023 Glucose measurement Wilton Rankin MD Work Phone: Start: 09-28-2023 Glucose measurement Wilton Rankin MD Work Phone: Start: 09-28-2023 Glucose measurement Wilton Rankin MD Work Phone: Start: 09-28-2023 Glucose measurement Wilton Rankin MD Work Phone: Start: 09-28-2023 Glucose measurement Wilton Rankin MD Work Phone: Start: 09-28-2023 Drug screen quantitative vancomycin Marissa Dubon [facility],PharmD Start: 09-28-2023 End: 09-28-2023 Calcium ionized Donovan Trimble PHYSICAL THERAPY DIRECTOR Work Phone: Start: 09-28-2023 Glucose measurement Wilton Rankin MD Work Phone: Start: 09-27-2023 Glucose measurement Wilton Rankin MD Work Phone: Start: 09-27-2023 Glucose measurement Wilton Rankin MD Work Phone: Start: 09-27-2023 Glucose measurement Wilton Rankin MD Work Phone: Start: 09-27-2023 Glucose measurement Wilton Rankin MD Work Phone: Start: 09-27-2023 Glucose measurement Wilton Rankin MD Work Phone: Start: 09-27-2023 Glucose measurement Wilton Rankin MD Work Phone: Start: 09-27-2023 Calcium ionized Donovan Trimble PHYSICAL THERAPY DIRECTOR Work Phone: Start: 09-27-2023 Glucose measurement Wilton Rankin MD Work Phone: Start: 09-26-2023 Glucose measurement Wilton Rankin MD Work Phone: Start: 09-26-2023 Ct head/brain w/o contrast material Samina Marina PA-C Work Phone: Start: 09-26-2023 Glucose measurement Wilton Rankin MD Work Phone: Start: 09-26-2023 H/O: surgery History of cranioplasty Wilton Rankin MD Work Phone: Start: 09-26-2023 End: 09-26-2023 CRANIOPLASTY Wilton Rankin MD Work Phone: Start: 09-26-2023 Blood typing serologic abo Alethea walker PA-C Work Phone: Start: 09-26-2023 Glucose measurement Wilton Rankin MD Work Phone: Start: 09-25-2023 SCAN OTHER ORDERS Wilton Rankin MD Work Phone: Start: 06-26-2023 Endoscopy and biopsy of upper gastrointestinal tract MD GAURAV SPEARS Work Phone: Start: 06-25-2023 Diagnostic radiography of abdomen MD LASHAWN SPEARS Work Phone: Start: 06-25-2023 X-ray of chest anteroposterior view MD GAURAV SPEARS Work Phone: Start: 06-21-2023 X-ray of chest anteroposterior view MD GAURAV SPEARS Work Phone: Start: 06-10-2023 X-ray of chest anteroposterior view MD GAURAV SPEARS Work Phone: Start: 06-10-2023 Electrocardiographic procedure MD ALEXIS SPEARS Work Phone: Start: 02-11-2023 Contrast echocardiography MD TERESA RAMEY Work Phone: Start: 02-10-2023 CT angiography of chest with contrast MD TERESA ROMEO Work Phone: Start: 02-10-2023 X-ray of chest anteroposterior view MD TERESA ROMEO Work Phone: Start: 02-13-2022 CT angiography of chest with contrast MD TERESA ROMEO Work Phone: Start: 02-12-2022 X-ray of chest anteroposterior view MD TERESA ROMEO Work Phone: Start: 02-11-2022 X-ray of chest anteroposterior view MD TERESA ROMEO Work Phone: Start: 02-09-2022 X-ray of chest anteroposterior view MD TERESA ROMEO Work Phone: Start: 02-09-2022 Laparoscopic cholecystectomy MD TERESA ROMEO Work Phone: Start: 02-09-2022 Proctoscopy MD TERESA ROMEO Work Phone: Start: 02-09-2022 Intraoperative cholangiogram MD TERESA ROMEO Work Phone: Start: 02-08-2022 Electrocardiographic procedure MD CLIFFORD ROMEO Work Phone: Start: 02-08-2022 CT of abdomen and pelvis without contrast MD TERESA ROMEO Work Phone: Start: 02-08-2022 US scan of gallbladder MD TERESA ROMEO Work Phone: Start: 10-08-2019 Complete blood count (hemogram) panel - Blood by Automated count Gracy Amin Work Phone: Start: 10-08-2019 Renal function 2000 panel - Serum or Plasma Gracy Amin Work Phone: Start: 10-01-2019 Complete blood count (hemogram) panel - Blood by Automated count Gracy Amin Work Phone: Start: 10-01-2019 Renal function 2000 panel - Serum or Plasma Gracy Amin Work Phone: Start: 09-24-2019 Complete blood count (hemogram) panel - Blood by Automated count Gracy Lazojenny Work Phone: Start: 09-24-2019 Renal function 2000 panel - Serum or Plasma Gracy Amin Work Phone: Start: 09-17-2019 Complete blood count (hemogram) panel - Blood by Automated count Gracy Lazojenny Work Phone: Start: 09-17-2019 Renal function 2000 panel - Serum or Plasma Gracy Lazojenny Work Phone: Start: 09-10-2019 Complete blood count (hemogram) panel - Blood by Automated count Gracy Lazojenny Work Phone: Start: 09-10-2019 Renal function 2000 panel - Serum or Plasma Gracy Lazojenny Work Phone: Start: 09-03-2019 Complete blood count with white cell differential, automated Haritha Vasquezjenny Fernandez Work Phone: Start: 09-03-2019 Complete blood count with white cell differential, manual Harithacat Fernandez Work Phone: Start: 09-03-2019 Creatine kinase [Enzymatic activity/volume] in Serum or Plasma Haritha Vasquezjenny Fernandez Work Phone: Start: 08-28-2019 X-ray of left knee Shelly Benavides Work Phone: Start: 08-26-2019 Dup-scan xtr veins complete bilateral study Shelly Benavides Work Phone: Start: 08-11-2019 Complete blood count (hemogram) panel - Blood by Automated count Janny Connor Work Phone: Start: 08-11-2019 INR in Platelet poor plasma by Coagulation assay Janny Connor Work Phone: Start: 08-03-2019 End: 08-03-2019 Troponin measurement Marian Kaur Work Phone: Start: 08-03-2019 12 lead ECG Marian Kaur Work Phone: Start: 07-31-2019 Basic metabolic 2000 panel - Serum or Plasma Marian Kaur Work Phone: Start: 07-31-2019 Complete blood count (hemogram) panel - Blood by Automated count Marian Kaur Work Phone: Start: 07-26-2019 Basic metabolic 2000 panel - Serum or Plasma Romie Tse Work Phone: Start: 07-26-2019 Complete blood count (hemogram) panel - Blood by Automated count Romie Tse Work Phone: Start: 07-21-2019 Bacteria identified in Unspecified specimen by Aerobe culture Romie Tse Work Phone: Start: 07-21-2019 Osmolality of Urine Romie Tse Work Phone: Start: 07-21-2019 Sodium [Moles/volume] in Urine Romie Tse Work Phone: Start: 07-21-2019 Urinalysis Romie Tse Work Phone: Start: 07-21-2019 Bacteria identified in Blood by Culture Romie Tse Work Phone: Start: 07-21-2019 Basic metabolic 2000 panel - Serum or Plasma Romie Tse Work Phone: Start: 07-20-2019 12 lead ECG Romie Tse Work Phone: Start: 07-20-2019 Dup-scan xtr veins complete bilateral study Romie Tse Work Phone: Start: 07-20-2019 Radiologic exam chest single view Romie Tse Work Phone: Start: 07-20-2019 Basic metabolic 2000 panel - Serum or Plasma Romie Tse Work Phone: Start: 07-20-2019 Complete blood count (hemogram) panel - Blood by Automated count Romie Oscarore Work Phone: Start: 07-20-2019 Osmolality of Serum or Plasma Romie turcios Carmencita Work Phone: Start: 07-19-2019 Adult depression screening assessment Wilton Rankin MD Work Phone: Start: 07-16-2019 Basic metabolic 1998 panel - Serum or Plasma Brianna Baez Work Phone: Start: 07-16-2019 Magnesium [Mass/volume] in Serum or Plasma Vika Wong Work Phone: Start: 07-14-2019 Glucose [Mass/volume] in Blood [facility] Work Phone: Start: 07-14-2019 Glucose [Mass/volume] in Blood [facility] Work Phone: Start: 07-13-2019 Glucose [Mass/volume] in Blood [facility] Work Phone: Start: 07-11-2019 Basic metabolic 2000 panel - Serum or Plasma Kathy [place] Jesus Work Phone: Start: 07-11-2019 Complete blood count (hemogram) panel - Blood by Automated count Kathy Nancy Jesus Work Phone: Start: 07-09-2019 Mri any jt lower extrem w/o contrast matrl Kathy Nancy Jesus Work Phone: Start: 07-09-2019 Videofluoroscopy swallow Lidya Josue Work Phone: Start: 07-09-2019 Complete blood count with white cell differential, automated Kathy Nancy Jesus Work Phone: Start: 07-09-2019 Complete blood count with white cell differential, manual Kathy Nancy Jesus Work Phone: Start: 07-08-2019 Basic metabolic 2000 panel - Serum or Plasma Kathy [place] Jesus Work Phone: Start: 07-04-2019 Glucose [Mass/volume] in Blood [facility] Work Phone: Start: 07-03-2019 Basic metabolic 1998 panel - Serum or Plasma Mireya Gonzalez Work Phone: Start: 07-03-2019 Complete blood count (hemogram) panel - Blood by Automated count Mireya Gonzalez Work Phone: Start: 07-02-2019 End: 07-02-2019 Bacteria identified in Blood by Culture Lidya Josue Work Phone: Start: 07-02-2019 C reactive protein [Mass/volume] in Serum or Plasma Spenser Shaw Work Phone: Start: 07-02-2019 Complete blood count (hemogram) panel - Blood by Automated count Spenser Shaw Work Phone: Start: 07-02-2019 Erythrocyte sedimentation rate by Westergren method Spenser Shaw Work Phone: Start: 07-02-2019 12 lead ECG Lidya Josue Work Phone: Start: 07-01-2019 Mri any jt lower extrem w/o & w/contrast matrl Shayla Holcomb Work Phone: Start: 07-01-2019 Creatinine [Mass/volume] in Blood [facility] Work Phone: Start: 06-30-2019 Arthrocentesis aspir&/inj major jt/bursa w/o us Shayla Holcomb Work Phone: Start: 06-30-2019 Cell count misc body fluids w/differential count Shayla Holcomb Work Phone: Start: 06-30-2019 Culture bacterial any source anaerobic iso&id Shayla Holcomb Work Phone: Start: 06-30-2019 Fungal culture, with definitive identification Shayla Holcomb Work Phone: Start: 06-30-2019 Microbial culture, body fluid Shayla steve Work Phone: Start: 06-30-2019 Complete blood count with white cell differential, automated Shayla Holcomb Work Phone: Start: 06-30-2019 Complete blood count with white cell differential, manual Shayla Holcomb Work Phone: Start: 06-29-2019 C reactive protein [Mass/volume] in Serum or Plasma Carlyn Louise Work Phone: Start: 06-29-2019 Complete blood count with white cell differential, automated Carlyn Louise Work Phone: Start: 06-29-2019 Complete blood count with white cell differential, manual Carlyn Louise Work Phone: Start: 06-29-2019 Erythrocyte sedimentation rate by Westergren method Carlyn Louise Work Phone: Start: 06-29-2019 Radex hip unilateral with pelvis 2-3 views Lidya Josue Work Phone: Start: 06-28-2019 Radiologic exam chest single view Luc Alvarado chester Qiuak Work Phone: Start: 06-27-2019 Videofluoroscopy swallow Kyleigh Carver Elena Work Phone: Start: 06-26-2019 Basic metabolic 1998 panel - Serum or Plasma Mireya Gonzalez Work Phone: Start: 06-26-2019 Complete blood count (hemogram) panel - Blood by Automated count Mireya Gonzalez Work Phone: Start: 06-23-2019 Basic metabolic 2000 panel - Serum or Plasma Jeet Du Work Phone: Start: 06-23-2019 Complete blood count (hemogram) panel - Blood by Automated count Jeet Du Work Phone: Start: 06-22-2019 Ct abdomen & pelvis w/o contrast material Jeet Du Work Phone: Start: 06-22-2019 Bacteria identified in Unspecified specimen by Aerobe culture Alejandra Cuellar Work Phone: Start: 06-22-2019 Cytologic test Alejandra Cuellar Work Phone: Start: 06-22-2019 Basic metabolic 2000 panel - Serum or Plasma Jeet Du Work Phone: Start: 06-22-2019 Complete blood count (hemogram) panel - Blood by Automated count Jeet Du Work Phone: Start: 06-21-2019 Urinalysis Jeet Du Work Phone: Start: 06-19-2019 Basic metabolic 1998 panel - Serum or Plasma Jeet Du Work Phone: Start: 06-19-2019 Complete blood count (hemogram) panel - Blood by Automated count Jeet Du Work Phone: Start: 06-18-2019 Urinalysis Jeet Du Work Phone: Start: 06-18-2019 Bacteria identified in Blood by Culture Jeet Du Work Phone: Start: 06-18-2019 Bacteria identified in Blood by Culture Jeet Du Work Phone: Start: 06-18-2019 Radiologic exam chest single view Jeet Du Work Phone: Start: 06-18-2019 Basic metabolic 2000 panel - Serum or Plasma Jeet Du Work Phone: Start: 06-18-2019 Complete blood count (hemogram) panel - Blood by Automated count Jeet Du Work Phone: Start: 06-17-2019 Glucose [Mass/volume] [facility] Work Phone: Start: 06-17-2019 Basic metabolic 1998 panel - Serum or Plasma Kyleigh Parker Work Phone: Start: 06-17-2019 Complete blood count (hemogram) panel - Blood by Automated count Kyleigh Parker Work Phone: Start: 06-17-2019 12 lead ECG Jeet Du Work Phone: Start: 06-15-2019 Radiologic exam chest single view Rosa Maria Mcmanus Work Phone: Start: 06-15-2019 Gas panel - Arterial blood Shelly Mcmanus Work Phone: Start: 06-15-2019 Basic metabolic 1998 panel - Serum or Plasma sIabela Montez Badaniss Work Phone: Start: 06-15-2019 Complete blood count (hemogram) panel - Blood by Automated count Db Gutiérrez Work Phone: Start: 06-14-2019 Basic metabolic 1998 panel - Serum or Plasma Isabela Baldwinge Badaniss Work Phone: Start: 06-14-2019 Complete blood count (hemogram) panel - Blood by Automated count Db Gutiérrez Work Phone: Start: 06-13-2019 Basic metabolic 1998 panel - Serum or Plasma Isabela Montez Badaniss Work Phone: Start: 06-13-2019 Complete blood count (hemogram) panel - Blood by Automated count Db Gutiérrez Work Phone: Start: 06-12-2019 Basic metabolic 1998 panel - Serum or Plasma Isabela Vega Work Phone: Start: 06-12-2019 Complete blood count (hemogram) panel - Blood by Automated count Db Gutiérrez Work Phone: Start: 06-11-2019 Urinalysis Nicole Shahid Work Phone: Start: 06-11-2019 Bacteria identified in Sputum by Aerobe culture Nicole Shahid Work Phone: Start: 06-11-2019 Radiologic exam chest single view Nicole Shahid Work Phone: Start: 06-11-2019 Dup-scan xtr veins complete bilateral study Nicole Shahid Work Phone: Start: 06-11-2019 End: 06-11-2019 Bacteria identified in Blood by Culture Nicole Shahid Work Phone: Start: 06-11-2019 Basic metabolic 1998 panel - Serum or Plasma Isabela Vega Work Phone: Start: 06-11-2019 Complete blood count (hemogram) panel - Blood by Automated count Db Gutiérrez Work Phone: Start: 06-10-2019 Glucose [Mass/volume] in Blood Arun solano Olkathleen Work Phone: Start: 06-10-2019 Glucose [Mass/volume] in Blood Arun Lopez Work Phone: Start: 06-10-2019 Basic metabolic 1998 panel - Serum or Plasma Isabela Vega Work Phone: Start: 06-10-2019 Complete blood count (hemogram) panel - Blood by Automated count Db Gutiérrez Work Phone: Start: 06-09-2019 Glucose [Mass/volume] in Blood Arun Lopez Work Phone: Start: 06-09-2019 Glucose [Mass/volume] in Blood Arun Lopez Work Phone: Start: 06-09-2019 Radiologic exam chest single view Vivek Greene Work Phone: Start: 06-09-2019 Glucose [Mass/volume] in Blood Arun Lopez Work Phone: Start: 06-09-2019 End: 06-09-2019 Esophagogastroduodenoscopy Luc morris Work Phone: Start: 06-09-2019 BRONCHOSCOPY Grisa Pino Waller Work Phone: Start: 06-09-2019 Endoscopy of esophagus Luc Farmer Work Phone: Start: 06-09-2019 End: 06-09-2019 BRONCHOSCOPY Luc Rodas Work Phone: Start: 06-09-2019 Glucose [Mass/volume] in Blood Arun Lopez Work Phone: Start: 06-09-2019 Glucose [Mass/volume] in Blood Arun solano Olkathleen Work Phone: Start: 06-09-2019 Glucose [Mass/volume] in Blood Arun Lopez Work Phone: Start: 06-09-2019 Basic metabolic 2000 panel - Serum or Plasma Lupe Macias Work Phone: Start: 06-09-2019 Complete blood count (hemogram) panel - Blood by Automated count Db Gutiérrez Work Phone: Start: 06-09-2019 INR in Platelet poor plasma by Coagulation assay Lupe Macias Work Phone: Start: 06-09-2019 Radiologic exam chest single view Donovan Trimble Work Phone: Start: 06-08-2019 Glucose [Mass/volume] in Blood Arun Lopez Work Phone: Start: 06-08-2019 Evaluation of arterial blood gas studies [facility] Work Phone: Start: 06-08-2019 Glucose [Mass/volume] in Blood Arun Lopez Work Phone: Start: 06-08-2019 Evaluation of arterial blood gas studies [facility] Akhildiegodany Santamariaedna Work Phone: Start: 06-08-2019 End: 06-08-2019 OBTAIN ARTERIAL BLOOD GASES AND PERFORM Donovan Trimble Work Phone: Start: 06-08-2019 Glucose [Mass/volume] in Blood Arun Lopez Work Phone: Start: 06-08-2019 Bacteria identified in Blood by Culture Isabela Vega Work Phone: Start: 06-08-2019 Urinalysis Isabela Vega Work Phone: Start: 06-08-2019 Bacteria identified in Blood by Culture Isabela Vega Work Phone: Start: 06-08-2019 Bacteria identified in Sputum by Aerobe culture Isabela Vega Work Phone: Start: 06-08-2019 CT angiography of pulmonary artery Isabela Vega Work Phone: Start: 06-08-2019 Glucose [Mass/volume] in Blood Arun Lopez Work Phone: Start: 06-08-2019 EEG ENTRY LEVEL FINANCIAL ANALYST MONITORING STATUS Isabela Vega Work Phone: Start: 06-08-2019 Electroencephalographic monitoring regime Isabela Vega Work Phone: Start: 06-08-2019 Glucose [Mass/volume] in Blood Arun Lopez Work Phone: Start: 06-08-2019 Basic metabolic 1998 panel - Serum or Plasma Isabela Vega Work Phone: Start: 06-08-2019 Complete blood count (hemogram) panel - Blood by Automated count Db Gutiérrez Work Phone: Start: 06-07-2019 Glucose [Mass/volume] in Blood Arun Lopez Work Phone: Start: 06-07-2019 Evaluation of arterial blood gas studies Arun Lopez Work Phone: Start: 06-07-2019 OBTAIN ARTERIAL BLOOD GASES AND PERFORM Elaina Redmond Work Phone: Start: 06-07-2019 Radiologic exam chest single view Mickey Redmond Work Phone: Start: 06-07-2019 Glucose [Mass/volume] in Blood Arun Lopez Work Phone: Start: 06-07-2019 Magnesium [Mass/volume] in Serum or Plasma Isabela Vega Work Phone: Start: 06-07-2019 Magnesium [Mass/volume] in Serum or Plasma Isabela Vega Work Phone: Start: 06-07-2019 Magnesium [Mass/volume] in Serum or Plasma Isabela Vega Work Phone: Start: 06-07-2019 Evaluation of arterial blood gas studies Arun Lopez Work Phone: Start: 06-07-2019 OBTAIN ARTERIAL BLOOD GASES AND PERFORM Elaina Redmond Work Phone: Start: 06-07-2019 Radiologic exam chest single view Danial Vega Work Phone: Start: 06-07-2019 Basic metabolic 1998 panel - Serum or Plasma Isabela Vega Work Phone: Start: 06-07-2019 Complete blood count (hemogram) panel - Blood by Automated count Db Gutiérrez Work Phone: Start: 06-07-2019 Magnesium [Mass/volume] in Serum or Plasma Isabela Vega Work Phone: Start: 06-06-2019 Magnesium [Mass/volume] in Serum or Plasma Isabela Vega Work Phone: Start: 06-06-2019 Magnesium [Mass/volume] in Serum or Plasma Isabela Vega Work Phone: Start: 06-06-2019 Basic metabolic 1998 panel - Serum or Plasma Isatu Mitchell Work Phone: Start: 06-06-2019 CT of head without contrast Isabela Velazquez Work Phone: Start: 06-06-2019 Magnesium [Mass/volume] in Serum or Plasma Isabela Veag Work Phone: Start: 06-06-2019 Complete blood count (hemogram) panel - Blood by Automated count Db Gutiérrez Work Phone: Start: 06-06-2019 Radiologic exam chest single view Danial Vega Work Phone: Start: 06-05-2019 Magnesium [Mass/volume] in Serum or Plasma Isabela Vega Work Phone: Start: 06-05-2019 Basic metabolic 1998 panel - Serum or Plasma Isatu Mitchell Work Phone: Start: 06-05-2019 Magnesium [Mass/volume] in Serum or Plasma Isabela Vega Work Phone: Start: 06-05-2019 Magnesium [Mass/volume] in Serum or Plasma Isabela Vega Work Phone: Start: 06-05-2019 Radiologic exam chest single view Danial Vega Work Phone: Start: 06-05-2019 Basic metabolic 1998 panel - Serum or Plasma Isatu Mitchell Work Phone: Start: 06-05-2019 Magnesium [Mass/volume] in Serum or Plasma Isabela Vega Work Phone: Start: 06-05-2019 Complete blood count (hemogram) panel - Blood by Automated count Db Gutiérrez Work Phone: Start: 06-05-2019 Magnesium [Mass/volume] in Serum or Plasma Isabela Vega Work Phone: Start: 06-04-2019 Basic metabolic 1998 panel - Serum or Plasma Isatu Jeter Paula Work Phone: Start: 06-04-2019 Magnesium [Mass/volume] in Serum or Plasma Isabela Vega Work Phone: Start: 06-04-2019 Potassium [Moles/volume] in Serum or Plasma Donovan Trimble Work Phone: Start: 06-04-2019 Magnesium [Mass/volume] in Serum or Plasma Isabela Vega Work Phone: Start: 06-04-2019 Potassium [Moles/volume] in Serum or Plasma Isabela Brett Abraham Work Phone: Start: 06-04-2019 Basic metabolic 1998 panel - Serum or Plasma Isatu Mitchell Work Phone: Start: 06-04-2019 Complete blood count (hemogram) panel - Blood by Automated count Db Gutiérrez Work Phone: Start: 06-04-2019 Magnesium [Mass/volume] in Serum or Plasma Isabela Vega Work Phone: Start: 06-04-2019 Evaluation of arterial blood gas studies Arun Urbano Jessica Work Phone: Start: 06-04-2019 Evaluation of arterial blood gas studies Arun Urbano Jessica Work Phone: Start: 06-04-2019 Magnesium [Mass/volume] in Serum or Plasma Isabela Vega Work Phone: Start: 06-04-2019 Radiologic exam chest single view Danial [place] Simivalerie Work Phone: Start: 06-03-2019 Evaluation of arterial blood gas studies Arunradha Urbano Jessica Work Phone: Start: 06-03-2019 End: 06-03-2019 OBTAIN ARTERIAL BLOOD GASES AND PERFORM Isabela Brett Abraham Work Phone: Start: 06-03-2019 Evaluation of arterial blood gas studies Arunradha Urbano Jessica Work Phone: Start: 06-03-2019 Basic metabolic 1998 panel - Serum or Plasma Isatu Mitchell Work Phone: Start: 06-03-2019 Evaluation of arterial blood gas studies Arun Lopez Work Phone: Start: 06-03-2019 End: 06-03-2019 OBTAIN ARTERIAL BLOOD GASES AND PERFORM Isabela Brett Abraham Work Phone: Start: 06-03-2019 Magnesium [Mass/volume] in Serum or Plasma Isabela Vega Work Phone: Start: 06-03-2019 Evaluation of arterial blood gas studies Arun Lopez Work Phone: Start: 06-03-2019 OBTAIN ARTERIAL BLOOD GASES AND PERFORM Donovan Trimble Work Phone: Start: 06-03-2019 Potassium [Moles/volume] in Serum or Plasma Donovan Trimble Work Phone: Start: 06-03-2019 End: 06-03-2019 Evaluation of arterial blood gas studies Arun Lopez Work Phone: Start: 06-03-2019 Complete blood count (hemogram) panel - Blood by Automated count Elaina Redmond Work Phone: Start: 06-03-2019 Magnesium [Mass/volume] in Serum or Plasma Isabela Vega Work Phone: Start: 06-03-2019 Potassium [Moles/volume] in Serum or Plasma Donovan Trimble Work Phone: Start: 06-03-2019 Basic metabolic 1998 panel - Serum or Plasma Isatu Mitchell Work Phone: Start: 06-03-2019 Magnesium [Mass/volume] in Serum or Plasma Isabela Vega Work Phone: Start: 06-03-2019 Complete blood count (hemogram) panel - Blood by Automated count Db Gutiérrez Work Phone: Start: 06-03-2019 Radiologic exam chest single view Justice Taylor Work Phone: Start: 06-02-2019 Magnesium [Mass/volume] in Serum or Plasma Isabela Vega Work Phone: Start: 06-02-2019 Evaluation of arterial blood gas studies Arun Lopez Work Phone: Start: 06-02-2019 Magnesium [Mass/volume] in Serum or Plasma Isabela Vega Work Phone: Start: 06-02-2019 COMMUNICATION TO RESPIRATORY THERAPY Nicole Strickland Work Phone: Start: 06-02-2019 Basic metabolic 1998 panel - Serum or Plasma Isatu Mitchell Work Phone: Start: 06-02-2019 Magnesium [Mass/volume] in Serum or Plasma Nicole Strickland Work Phone: Start: 06-02-2019 Evaluation of arterial blood gas studies Arun Lopez Work Phone: Start: 06-02-2019 Evaluation of arterial blood gas studies Arun Lopez Work Phone: Start: 06-02-2019 Radiologic exam chest single view Justice Taylor Work Phone: Start: 06-02-2019 Magnesium [Mass/volume] in Serum or Plasma Isabela Vega Work Phone: Start: 06-02-2019 CT of head without contrast Janny boyer Work Phone: Start: 06-02-2019 Basic metabolic 1998 panel - Serum or Plasma Isatu Mitchell Work Phone: Start: 06-02-2019 Complete blood count (hemogram) panel - Blood by Automated count Nicole Strickland Work Phone: Start: 06-02-2019 Magnesium [Mass/volume] in Serum or Plasma Isabela Vega Work Phone: Start: 06-02-2019 Complete blood count (hemogram) panel - Blood by Automated count Db Gutiérrez Work Phone: Start: 06-02-2019 Magnesium [Mass/volume] in Serum or Plasma Isabela Vega Work Phone: Start: 06-01-2019 Magnesium [Mass/volume] in Serum or Plasma Isabela Vega Work Phone: Start: 06-01-2019 Magnesium [Mass/volume] in Serum or Plasma Isabela Vega Work Phone: Start: 06-01-2019 End: 06-01-2019 Basic metabolic 1998 panel - Serum or Plasma Isatu Mitchell Work Phone: Start: 06-01-2019 Clostridium difficile toxin assay Danial Vega Work Phone: Start: 06-01-2019 Radiologic exam chest single view Danial Vega Work Phone: Start: 06-01-2019 Complete blood count (hemogram) panel - Blood by Automated count Keerthi Johnson Work Phone: Start: 05-31-2019 Basic metabolic 1998 panel - Serum or Plasma Isatu Mitchell Work Phone: Start: 05-31-2019 Bacteria identified in Sputum by Aerobe culture Isatu Mitchell Work Phone: Start: 05-31-2019 Radiologic exam chest single view Manish alvarado Steffany Paula Work Phone: Start: 05-31-2019 Glucose [Mass/volume] in Blood Arun Lopez Work Phone: Start: 05-31-2019 End: 05-31-2019 Basic metabolic 1998 panel - Serum or Plasma Keerthi Johnson Work Phone: Start: 05-31-2019 Complete blood count (hemogram) panel - Blood by Automated count Keerthi Johnson Work Phone: Start: 05-31-2019 Glucose [Mass/volume] in Blood Arun solano Olkathleen Work Phone: Start: 05-30-2019 Basic metabolic 1998 panel - Serum or Plasma Keerthi Johnson Work Phone: Start: 05-30-2019 Glucose [Mass/volume] in Blood Arun solano Olkathleen Work Phone: Start: 05-30-2019 Glucose [Mass/volume] in Blood Arun solano Olkathleen Work Phone: Start: 05-30-2019 Basic metabolic 1998 panel - Serum or Plasma Arun Lopez Work Phone: Start: 05-30-2019 Phosphate [Mass/volume] in Serum or Plasma Ruth Taylor Work Phone: Start: 05-30-2019 Glucose [Mass/volume] in Blood Arun solano Olkathleen Work Phone: Start: 05-30-2019 Basic metabolic 1998 panel - Serum or Plasma Keerthi Johnson Work Phone: Start: 05-30-2019 Radiologic exam chest single view David Canseco Work Phone: Start: 05-30-2019 Glucose [Mass/volume] in Blood Arun Lopez Work Phone: Start: 05-30-2019 Glucose [Mass/volume] in Blood Arun solano Olkathleen Work Phone: Start: 05-30-2019 Basic metabolic 1998 panel - Serum or Plasma Keerthi Johnson Work Phone: Start: 05-30-2019 Basic metabolic 1998 panel - Serum or Plasma Keerthi Johnson Work Phone: Start: 05-30-2019 Complete blood count (hemogram) panel - Blood by Automated count Keerthi Johnson Work Phone: Start: 05-30-2019 Glucose [Mass/volume] in Blood Arun solano Olkathleen Work Phone: Start: 05-30-2019 Basic metabolic 1998 panel - Serum or Plasma Keetrhi Escobarall Work Phone: Start: 05-29-2019 Glucose [Mass/volume] in Blood Arun Lpoez Work Phone: Start: 05-29-2019 Glucose [Mass/volume] in Blood Arun solano Olkathleen Work Phone: Start: 05-29-2019 Basic metabolic 1998 panel - Serum or Plasma Keerthi Sameric Johnson Work Phone: Start: 05-29-2019 Glucose [Mass/volume] in Blood Arun solano Olkathleen Work Phone: Start: 05-29-2019 Phosphate [Mass/volume] in Serum or Plasma Db Gutiérrez Work Phone: Start: 05-29-2019 Basic metabolic 1998 panel - Serum or Plasma Keerthi Sameric Johnson Work Phone: Start: 05-29-2019 Glucose [Mass/volume] in Blood Arun Lopez Work Phone: Start: 05-29-2019 Glucose [Mass/volume] in Blood Arun Lopez Work Phone: Start: 05-29-2019 Basic metabolic 1998 panel - Serum or Plasma Keerthi Sameric Johnson Work Phone: Start: 05-29-2019 Calcium.ionized [Mass/volume] in Serum or Plasma Keerthinick Johnson Work Phone: Start: 05-29-2019 Complete blood count (hemogram) panel - Blood by Automated count Keerthinick Johnson Work Phone: Start: 05-29-2019 Magnesium [Mass/volume] in Serum or Plasma Keerthinick Johnson Work Phone: Start: 05-29-2019 Phosphate [Mass/volume] in Serum or Plasma Keerthinick Johnson Work Phone: Start: 05-29-2019 Basic metabolic 1998 panel - Serum or Plasma Keerthi Johnson Work Phone: Start: 05-29-2019 Glucose [Mass/volume] in Blood Arun Lopez Work Phone: Start: 05-29-2019 Radiologic exam chest single view KeerthiRegino Johnson Work Phone: Start: 05-28-2019 Glucose [Mass/volume] in Blood Arun solano Olkathleen Work Phone: Start: 05-28-2019 Electroencephalographic monitoring regime Donovan Trimble Work Phone: Start: 05-28-2019 EEG ALF MONITORING STATUS Martha Naqvi Work Phone: Start: 05-28-2019 Glucose [Mass/volume] in Blood Arun Lopez Work Phone: Start: 05-28-2019 Basic metabolic 1998 panel - Serum or Plasma Keerthi Johnson Work Phone: Start: 05-28-2019 Glucose [Mass/volume] in Blood Arun Lopez Work Phone: Start: 05-28-2019 CT of head without contrast Donovan Trimble Work Phone: Start: 05-28-2019 Glucose [Mass/volume] in Blood Arun Lopez Work Phone: Start: 05-28-2019 Basic metabolic 1998 panel - Serum or Plasma Keerthi Johnson Work Phone: Start: 05-28-2019 Glucose [Mass/volume] in Blood Arun Lopez Work Phone: Start: 05-28-2019 Calcium.ionized [Mass/volume] in Serum or Plasma Keerthi Johnson Work Phone: Start: 05-28-2019 Complete blood count (hemogram) panel - Blood by Automated count Keerthi Johnson Work Phone: Start: 05-28-2019 Basic metabolic 1998 panel - Serum or Plasma Keerthi Johnson Work Phone: Start: 05-28-2019 Magnesium [Mass/volume] in Serum or Plasma Keerthi Johnson Work Phone: Start: 05-28-2019 Phosphate [Mass/volume] in Serum or Plasma Keerthi Johnson Work Phone: Start: 05-28-2019 Glucose [Mass/volume] in Blood Arun solano Oloidonnya Work Phone: Start: 05-28-2019 Radiologic exam chest single view Keerthi Johnson Work Phone: Start: 05-28-2019 Basic metabolic 1998 panel - Serum or Plasma Keerthi Johnson Work Phone: Start: 05-27-2019 Glucose [Mass/volume] in Blood Arun solano Oloizia Work Phone: Start: 05-27-2019 Glucose [Mass/volume] in Blood Arun solano Oloizia Work Phone: Start: 05-27-2019 Basic metabolic 1998 panel - Serum or Plasma Keerthi Johnson Work Phone: Start: 05-27-2019 Mra neck w/o &w/contrast material Sai Ramírez Work Phone: Start: 05-27-2019 Glucose [Mass/volume] in Blood Arun solano Olashleigha Work Phone: Start: 05-27-2019 Bacteria identified in Sputum by Aerobe culture Donovan Trimble Work Phone: Start: 05-27-2019 Bacteria identified in Blood by Culture Donovan Trimble Work Phone: Start: 05-27-2019 Basic metabolic 1998 panel - Serum or Plasma Keerthi Escobarall Work Phone: Start: 05-27-2019 Urinalysis Donovan Trimble Work Phone: Start: 05-27-2019 Glucose [Mass/volume] in Blood Arun solano Olkathleen Work Phone: Start: 05-27-2019 Basic metabolic 1998 panel - Serum or Plasma Keerthinick Johnson Work Phone: Start: 05-27-2019 Glucose [Mass/volume] in Blood Arun solano Olkathleen Work Phone: Start: 05-27-2019 Glucose [Mass/volume] in Blood Arun solano Olkathleen Work Phone: Start: 05-27-2019 CT of head without contrast [facility] Work Phone: Start: 05-27-2019 Basic metabolic 1998 panel - Serum or Plasma Keerthi Johnson Work Phone: Start: 05-27-2019 Basic metabolic 2000 panel - Serum or Plasma Samina Chanell Woodston Work Phone: Start: 05-27-2019 Calcium.ionized [Mass/volume] in Serum or Plasma Keerthi Johnson Work Phone: Start: 05-27-2019 Complete blood count (hemogram) panel - Blood by Automated count Keerthi Johnson Work Phone: Start: 05-27-2019 Creatine kinase [Enzymatic activity/volume] in Serum or Plasma Jenn Schmitz Work Phone: Start: 05-27-2019 Magnesium [Mass/volume] in Serum or Plasma Keerthi Johnson Work Phone: Start: 05-27-2019 Phosphate [Mass/volume] in Serum or Plasma Keerthi Johnson Work Phone: Start: 05-27-2019 Radiologic exam chest single view Keerthi Johnson Work Phone: Start: 05-26-2019 Glucose [Mass/volume] in Blood Arun solano Olkathleen Work Phone: Start: 05-26-2019 Glucose [Mass/volume] in Blood Arun Lopez Work Phone: Start: 05-26-2019 Basic metabolic 1998 panel - Serum or Plasma Keerthi Johnson Work Phone: Start: 05-26-2019 Creatine kinase [Enzymatic activity/volume] in Serum or Plasma Jenn Schmitz Work Phone: Start: 05-26-2019 Glucose [Mass/volume] in Blood Arun Lopez Work Phone: Start: 05-26-2019 Basic metabolic 1998 panel - Serum or Plasma Keerthi Johnson Work Phone: Start: 05-26-2019 Creatine kinase [Enzymatic activity/volume] in Serum or Plasma Jenn Schmitz Work Phone: Start: 05-26-2019 CT of head without contrast Samina Chanell ortiz Work Phone: Start: 05-26-2019 Glucose [Mass/volume] in Blood Arun Lopez Work Phone: Start: 05-26-2019 Glucose [Mass/volume] in Blood Arun Lopez Work Phone: Start: 05-26-2019 End: 05-26-2019 CRANIECTOMY Wilton Rankin Work Phone: Start: 05-26-2019 Basic metabolic 1998 panel - Serum or Plasma Keerthi Johnson Work Phone: Start: 05-26-2019 Creatine kinase [Enzymatic activity/volume] in Serum or Plasma Keerthi Johnson Work Phone: Start: 05-26-2019 Lipid 1996 panel - Serum or Plasma Eladia S List Work Phone: Start: 05-26-2019 Echo ttc r-t 2d w/wom-mode compl spec&colr d Keerthi Johnson Work Phone: Start: 05-26-2019 CT of head without contrast Keerthi lim Work Phone: Start: 05-26-2019 Radiography of hlzwlv-[id number] Keerthi Johnson Work Phone: Start: 05-26-2019 Evaluation of arterial blood gas studies Arun Lopez Work Phone: Start: 05-26-2019 Glucose [Mass/volume] in Blood Arun Lopez Work Phone: Start: 05-26-2019 End: 05-26-2019 OBTAIN ARTERIAL BLOOD GASES AND PERFORM Keerthi Johnson Work Phone: Start: 05-26-2019 Incentive spirometry Keerthi Johnson Work Phone: Start: 05-25-2019 Drugs of abuse urine screening test Milton Saunders Ken Work Phone: Start: 05-25-2019 Urinalysis Milton Rogers Work Phone: Start: 05-25-2019 12 lead ECG Milton Rogers Work Phone: Start: 05-25-2019 Radiography of [id number] Milton Rogers Work Phone: Start: 05-25-2019 CT angiography of head and neck Milton Saunders Ken Work Phone: Start: 05-25-2019 CT of entire head Milton Saunders Ken Work Phone: Start: 05-25-2019 Radiologic exam chest single view Mini Saunders Ken Work Phone: Start: 05-25-2019 Basic metabolic 2000 panel - Serum or Plasma Milton Saunders Ken Work Phone: Start: 05-25-2019 Blood type and Indirect antibody screen panel - Blood Arun Urbano Gwynkathleen Work Phone: Start: 05-25-2019 Complete blood count with white cell differential, automated Milton Saunders Ken Work Phone: Start: 05-25-2019 Complete blood count with white cell differential, manual Milton Rogers Work Phone: Start: 05-25-2019 Hemoglobin A1c/Hemoglobin.total in Blood Eladia Alvares Work Phone: Start: 05-25-2019 Hepatic function 2000 panel - Serum or Plasma Milton Rogers Work Phone: Start: 05-25-2019 INR in Platelet poor plasma by Coagulation assay Milton Rogers Work Phone: Start: 05-25-2019 Lactate [Moles/volume] in Serum or Plasma Milton Rogers Work Phone: Start: 05-25-2019 LIGHT GREEN TOP Milton Rogers Work Phone: Start: 05-25-2019 Magnesium [Mass/volume] in Serum or Plasma Keerthi Escobarall Work Phone: Start: 05-25-2019 Phosphate [Mass/volume] in Serum or Plasma Keerthi Luzma Johnson Work Phone: Start: 05-25-2019 PINK TOP Milton Rogers Work Phone: Start: 05-25-2019 RAINBOW DRAW Milton Rogers Work Phone: Start: 05-25-2019 Troponin measurement Milton Rogers Work Phone: Start: 05-25-2019 Glucose [Mass/volume] in Blood [facility] Start: 05-25-2019 INR in Blood by Coagulation assay [facility] Start: 05-25-2019 End: 05-25-2019 Computerized tomography, limited studies External Transcribed Start: 05-25-2019 Radiographic imaging procedure External Transcribed Plan of Treatment Date Care Activity Detail Author Start: 10-13-2029 Fasting lipid profile LIPID SCREENING [facility] Start: 10-13-2025 Hemoglobin A1c measurement HEMOGLOBIN A1C PREDIABETES [facility] Start: 11-10-2024 End: 11-10-2024 Patient encounter procedure 11/10/2024 11:00 AM EDT Office Visit [facility] [address] [facility] [address] [place] [address] Romie Sahu MD [address] [place] [address] [facility] [address] [facility] Start: 10-28-[address] [facility] Start: 10-26-2024 Hospital admission, emergency, from emergency room [facility] Start: 10-26-[address] [facility] Start: 10-26-[address] [facility] Start: 10-06-2024 End: 10-06-2024 Patient encounter procedure 10/06/2024 10:20 AM EDT Office Visit [facility] [address] [place] [address] Romie Sahu MD [address] [place] [address] [facility] [address] [facility] Start: 09-28-2024 Depression screening using PHQ-9 (Patient Health Questionnaire 9) score Depression Screening (PHQ-2/9) [facility] Start: 03-08-2024 COVID-19 VACCINE ( season) COVID-19 VACCINE ( season) [facility] Start: 03-08-2024 Influenza vaccination [facility] Start: 03-08-2024 Influenza vaccination given INFLUENZA VACCINE (#1) [facility] Start: 10-30-2023 End: 10-30-2023 Follow-up encounter 10/30/2023 10:15 AM EDT Follow-Up [facility] [address] [place] [id number] Wilton Rankin MD [address] [place] [address] [facility] Start: 10-10-2023 End: 10-10-2023 Clinical Support 10/10/2023 10:00 AM EDT Clinical Support [facility] [address] [place] [address] Jenny Sahu RN [facility] Start: 09-26-2023 End: 09-26-2023 Admission to same day surgery center 09/26/2023 11:05 AM EDT - 09/26/2023 2:15 PM EDT Surgery [facility] [address] [place] [address] Wilton Rankin MD [address] [facility] [address] [place] [address] RIGHT CRANIOPLASTY. *PERIOPERATIVE GLYCEMIC PROTOCOL* [facility] Comment on above: RIGHT CRANIOPLASTY. *PERIOPERATIVE GLYCE [facility] PROTOCOL* Start: 09-26-2023 End: 09-26-2023 CRANIOPLASTY CRANIOPLASTY Skull defect 09/26/2023 11:05 AM EDT [facility] Start: 09-26-2023 Subsequent hospital visit by physician [facility] Start: 07-16-2023 End: 07-16-2023 Admission to same day surgery center 07/16/2023 10:55 AM EST - 07/16/2023 1:20 PM EST Surgery [facility] [address] [place] [address] Wilton Rankin MD [address] [facility] [address] [place] [address] Right Cranioplasty. *Perioperative Glycemic Protocol* [facility] Comment on above: Right Cranioplasty. *Perioperative Glyce [facility]* Start: 07-16-2023 End: 07-16-2023 CRANIOPLASTY CRANIOPLASTY Skull defect 07/16/2023 10:55 AM EST [facility] Start: 07-16-2023 Subsequent hospital visit by physician 07/16/2023 10:55 AM EST Hospital Encounter [facility] [address] [place] [address] Wilton Rankin MD [address] [facility] [address] [place] [address] [facility] Start: 06-28-2023 Basic metabolic 1997 panel - Serum or Plasma [facility] Start: 06-28-2023 CBC W Auto Differential panel - Blood [facility] Start: 06-27-2023 Basic metabolic 1998 panel - Serum or Plasma [facility] Start: 06-27-2023 CBC W Auto Differential panel - Blood [facility] Start: 06-26-[address] [facility] Start: 06-26-2023 Albumin [Mass/volume] in Serum or Plasma by Bromocresol purple (BCP) dye binding method [facility] Start: 06-26-2023 Basic metabolic 1997 panel - Serum or Plasma [facility] Start: 06-26-2023 CBC W Auto Differential panel - Blood [facility] Start: 06-25-2023 Bacteria identified in Urine by Culture [facility] Start: 06-25-2023 Troponin I.cardiac panel - Serum or Plasma by High sensitivity method [facility] Start: 06-25-2023 Troponin I.cardiac panel - Serum or Plasma by High sensitivity method [facility] Start: 06-25-2023 Hospital admission, emergency, from emergency room [facility] Start: 06-25-[address] [facility] Start: 06-25-2023 Bacteria identified in Urine by Culture [facility] Start: 06-25-[address] [facility] Start: 06-22-[address] [facility] Start: 06-22-2023 Hospital admission, emergency, from emergency room [facility] Start: 06-22-[address] [facility] Start: 06-22-[address] [facility] Start: 06-21-[address] [facility] Start: 06-10-2023 Troponin I.cardiac panel - Serum or Plasma by High sensitivity method [facility] Start: 06-10-2023 Troponin I.cardiac panel - Serum or Plasma by High sensitivity method [facility] Start: 06-10-[address] [facility] Start: 05-31-2023 End: 05-31-2023 Patient encounter procedure 05/31/2023 9:40 AM EST Appointment [facility] [address] [place] [address] Wilton Rankin MD [address] [facility] [address] [place] [address] [facility] [address] Start: 03-08-2023 COVID-19 Vaccine ( season) COVID-19 Vaccine ( season) [facility] Start: 03-08-2023 COVID-19 Vaccine ( season) COVID-19 Vaccine ( season) [facility] Start: 03-08-2023 Influenza vaccination Sequential Influenza Vaccine (#1) [facility] Start: 02-11-[address] [facility] Start: 02-10-2023 Hospital admission, emergency, from emergency room [facility] Start: 02-10-[address] [facility] Start: 02-10-[address] [facility] Start: 2023 Administration of herpes zoster vaccine Zoster Vaccines (1 of 2) [facility] Start: 2023 Pneumococcal 23-valent polysaccharide vaccination given (situation) PNEUMOCOCCAL VACCINE: 50+ YEARS (1 of 1 - PCV) [facility] Start: 2023 Screening for malignant neoplasm of colon Flexible sigmoidoscopy [facility] Start: 2023 Zoster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 Rate [ 83 Right VS Machine] Respiratory 16 Rate Blood Pressure 114/88 Blood Pressure 120/87 [Right Arm] O2 Sat by Pulse 95 97 Oximetry(%) 10/26/24 10/26/24 10/26/24 13:01 13:31 15:48 Temperature Pulse Rate Pulse Rate [ Right VS Machine] Respiratory Rate Blood Pressure 134/84 119/90 129/85 Blood Pressure [Right Arm] O2 Sat by Pulse Oximetry(%) 10/26/24 10/26/24 10/26/24 16:01 17:00 17:17 Temperature Pulse Rate Pulse Rate [ Right VS Machine] Respiratory Rate Blood Pressure 128/61 112/81 Blood Pressure [Right Arm] O2 Sat by Pulse 95 Oximetry(%) 10/26/24 10/26/24 10/26/24 17:30 17:40 17:50 Temperature Pulse Rate 75 73 75 Pulse Rate [ Right VS Machine] Respiratory Rate Blood Pressure Blood Pressure [Right Arm] O2 Sat by Pulse 95 94 L 95 Oximetry(%) 10/26/24 10/26/24 18:00 18:10 Temperature Pulse Rate 70 73 Pulse Rate [ Right VS Machine] Respiratory Rate Blood Pressure Blood Pressure [Right Arm] O2 Sat by Pulse 94 L 95 Oximetry(%) General: Yes: Alert, Oriented (X3), Cooperative/Pleasant, No acute distress HEENT: Yes: Atraumatic, PERRLA, EOMI, Mucous membr. moist/pink Lungs: Yes: Clear to auscultation, Normal air movement, Unlabored. No: Exibits Shortness of [place], Shortness Of Breath Scale Cardiovascular: Yes: Regular rate, Normal S2, Normal S1, No murmurs Abdomen: Yes: Bowel Sounds X4, Soft, Large/Obese, No Tenderness. No: Distended,Rigid, Nausea/Vomiting, Emesis Present, Constipation, Diarrhea Extremities: Yes: No tenderness/swelling, Normal pulses. No: Clubbing, Cyanosis, Edema, Bilateral Leg Edema, Mottling noted Skin: No: Rashes, Skin Breakdown, Significant lesions, Open Wound Present, Skin Tear Neurological: Yes: Speech Clear, Strength Normal X4 ext, Cranial nerves 3-12 NL,Cognitive Ability Intact Psych/Mental Status: Yes: Mental status NL, Mood Appropriate. No: Depressed/Withdrawn, Hallucinations Genitourinary/Rectal: Yes: Deferred-Not Relevant Breast Exam: Yes: Deferred-Not Relevant Impressions - Problems (1) Adult failure to thrive Status: Acute Priority: High Present on admission?: Yes Current Visit: Yes (2) Hypokalemia Status: Acute Priority: High Present on admission?: Yes Current Visit: Yes (3) Loss of functional autonomy in activities of daily living (ADLs) Status: Acute Priority: High Present on admission?: Yes Current Visit: Yes Plan/Treatment Current Plan: See New Orders Plan: Impression/Plan: 1. Failure to thrive /unable to perform ADLs: Patient has left-sided hemiparesis from CVA in 2019. His albumin is low at 2.5. He is not getting enough protein in his diet therefore I will order a dietary consult and a high-protein diet. Additionally we have ordered physical therapy to evaluate, treat and make treatment recommendations for outpatient therapy. We have also orderedsocial Services tooffer possible community resources including home health for patient and his [id number] versus inpatient rehab/SNF placement. 2. Hypokalemia: Potassium 3.2 upon arrival to the emergency room. He was givenK- Lyte 25 mEq p.o. inthe emergency room. We will re-evaluate electrolytes and kidney function in the morning. 3. GERD/GI prophylaxis: We have ordered Protonix 40 mg p.o. daily from home. 4. DVT prophylaxis: Patient will wear Kofi hose received Lovenox 40 mg subQ daily throughout his hospital stay. Visit Coding - VISIT CODING Date of Service: 10/26/24 Billing Provider:: KORTNEY YU Common Visit Codes: 22390-[id number] INP/OBS CARE (MOD) Electronically Generated By:KORTNEY YU PHYSICAL THERAPY DIRECTOR Generated Date/Time: 10/26/242056 Electronically Signed By: 10/27/247 10/28/24 1508 Co Signed Electronically By: SANA DUMONT MD Co Signed Date/Time: 10/28/24 1502 CC: GAURAV SPEARS MD [facility]04-23-2025 [place] [address] HEALTH INFORMATION MANAGEMENT HISTORY AND PHYSICAL : [id number] Signed Patient: JOHNATHAN GONZALEZ Acct:[id number] MRUN: [id number] : 1975 Sex: M Loc: 4TH FLOOR ADM Date: 10/26/24 Room/Bed: 432-B DISC Date: History of Present Illness Date Of Admission: 10/26/24 Chief Complaint: Unable to care for him self at home. Left hemiplegia, hypokalemia History of Present Illness: Visit History JOHNATHAN GONZALEZ is a 49 year old M patient of ROMIE SAHU. Patient was admitted from to room 432, bed B on 10/26/24 17:14. Pt was evaluated for complaints of , then admitted to [facility] for FAILURE TO THRIVE CHRONIC LEFT HEMIPLEGIA UNABLERosa REVELES was admitted as a ADM to [facility] for further evaluation and treatment. Pt was seen and evaluated on 10/26/242056, by this provider, KORTNEY YU CNP. History of present illness: Mr. Escobar a 49-year-old male comes to [facility] with complaints of being unable to take care of himself at home. Unfortunately he suffered right hemiplegia from a CVA he experienced in 2019. During his ER evaluation he was found to have hypokalemia. Patient was at a nursing facility but began to be sexually inappropriate especially with one female patient. His took him home and started to care for him and her [id number]. She is finding it too difficult to take care of both of them and patient is unable to help with ADLs or ambulate due to his left hemiparesis. Therefore unfortunately he has experiencing failure to thrive and lack of self-care. We will be ordering physical therapy to evaluate and treat him as well as make outpatient recommendations for further therapy. I will also be consulting social services designee to assist with either additional home services or possible admission to skilled rehab/nursing facility. Patient denies fever, chills, cough, sore throat, runny nose, congestion, diaphoresis, rash, shortness of breath, chest pain, abdominal pain, nausea / vomiting, diarrhea / constipation, blood in urine or stool, change in appetite, numbness/tingling / paresthesias, change in vision hearing or speech, exposure to COVID positive individuals. He has a past medical history /surgical history that includes: HTN, CVA, headaches, left-sided weakness, neurological surgery, GERD, back pain, anxiety depression, explosive disorder, behaviors. Patient does not remember if he received a COVID-19 vaccine does not receive a flu shot. He used to live at [facility] for two years however the last month he has lived at home with his , he is . She is taking care of her mother and him. Unfortunately she is finding it very difficult to do so. I am unsure if she has any access to community resources to assist her. Patient reports he does not use illicit drugs or drinks alcohol. He does chew tobacco proximally one pouch a month. Allergies/Adverse Reactions: No Known Allergies Allergy (Verified 04/26/19 04:44) Home Medications: Patient History Acetaminophen [Aphen] 650 mg PO Q4H PRN 02/08/22 [History Confirmed 06/25/23] Levetiracetam [Keppra] 500 mg PO BID 02/08/22 [History Confirmed 06/25/23] Melatonin 5 mg PO QHS 02/08/22 [History Confirmed 06/25/23] Menthol [Biofreeze] 1 applic TP BID 02/08/22 [History Confirmed 06/25/23] Rivastigmine Tartrate [Rivastigmine] 6 mg PO BID 02/08/22 [History Confirmed 06/25/23] Albuterol Sulfate [Albuterol Sulfate Hfa] 8.5 gm IH Q4H PRN 02/10/23 [History Confirmed 06/25/23] Duloxetine HCl [Cymbalta] 60 mg PO DAILY 02/10/23 [History Confirmed 06/25/23] Medroxyprogesterone Acetate [Provera] 10 mg PO BID 02/10/23 [History Confirmed 06/25/23] Polyethylene Glycol 3350 [Miralax Packet 17 gm] 1 packet PO DAILY PRN 02/10/23 [History Confirmed 06/25/23] Zofran 4 mg Odt 4 cap PO .PER.INSTRUCTIONS PRN 02/10/23 [History Confirmed 06/25/23] Aspirin [Adult Low Dose Aspirin EC] 81 mg PO DAILY 06/22/23 [History Confirmed 06/25/23] Baclofen 5 mg PO BID 06/22/23 [History Confirmed 06/25/23] Benzocaine/Menthol/Zinc Chlor [Orajel 3X Mouth Sores Gel] 1 applic PO QID PRN 06/22/23 [History Confirmed 06/25/23] Hydrocortisone [Hydrocortisone 1% Ointment] 1 applic TP QID PRN 06/22/23 [History Confirmed 06/25/23] Nitroglycerin [Nitrostat] See Rx Instructions .ROUTE .COMPLEX PRN 06/22/23 [History Confirmed 06/25/23] RX history Finasteride [Proscar 5 mg Tablet] 5 mg PO DAILY tablet 02/16/22 [Rx Confirmed 06/25/23] Tamsulosin HCl [Flomax] 0.4 mg PO DAILY 30 Days #30 capsule 02/16/22 [Rx Confirmed 06/25/23] Amlodipine Besylate [Norvasc 5 mg Tablet] 5 mg PO DAILY tablet 06/24/23 [Rx Confirmed 06/25/23] Atorvastatin Calcium [Lipitor 40 mg Tablet] 40 mg PO QHS tablet 06/24/23 [Rx (more content not included)...[facility]04-23-2025 Note PATIENT:JOHNATHAN GONZALEZ [id number] LOCATION:4TH FLOOR I.D.#: [id number] : 1975 AGE: SEX:M DISCHARGED: ORDERED BY:LILA HEWITT MD M I C R O B I O L O G Y Patient: JOHNATHAN GONZALEZ MRNANCY [id number] Location: [facility] Aount: [id number] : 1975 Age: 49 Sex M Lab NumbEr [id number] Requested by: LILA HEWITT Admitdate: 10/26/24 Source: UR Collected: 10/26/24 15:51 Site: Received : 10/26/24 16:06 Culture, Urine FINAL 10/28/24 12:51 10/27/24 AEROBIC CULTURE RESULTS: #1: LIGHT GNB COLONY COUNT: 25,000 CFU/ml Organism 01 Enterobacter cloacae Organism E. cloacae [facility] Interp Amp/Sulbactam >16/8 R Ampicillin >16 R Aztreonam >16 R Cefazolin >16 R Cefepime <2 S Ceftazidime >16 R Ceftriaxone >2 R Ciprofloxacin <0.25 S Ertapenem 1 I Gentamicin <2 S Levofloxacin <0.5 S Nitrofurantoin <32 S Piperacillin/Asif >64 R Tobramycin <2 S Trimeth/Sulfa <2/38 S S=Sensitive I=Intermediate R=Resistant [facility]04-23-2025 NotePATIENT:JOHNATHAN GONZALEZ [id number] LOCATION:4TH FLOOR I.D.#: [id number] : 1975 AGE: SEX:M DISCHARGED: ORDERED BY:LILA HEWITT MD I C R O B I O L O G Y Patient: JOHNATHAN GONZALEZ MRUN [id number] Location: [facility] Aount: [id number] : 1975 Age: 49 Sex M Lab NumbEr [id number] Requested by: LILA HEWITTdate: 10/26/24 Source: UR Collected: 10/26/24 15:51 Site: Received : 10/26/24 16:06 Culture, Urine FINAL 10/28/24 12:51 10/27/24 AEROBIC CULTURE RESULTS: #1: LIGHT GNB COLONY COUNT: 25,000 CFU/ml Organism 01 Enterobacter cloacae Organism E. cloacae [facility] Interp Amp/Sulbactam >16/8 R Ampicillin >16 R Aztreonam >16 R Cefazolin >16 R Cefepime <2 S Ceftazidime >16 R Ceftriaxone >2 R Ciprofloxacin <0.25 S Ertapenem 1 I Gentamicin <2 S Levofloxacin <0.5 S Nitrofurantoin <32 S Piperacillin/Asif >64 R Tobramycin <2 S Trimeth/Sulfa <2/38 S S=Sensitive I=Intermediate R=Resistant [address]23-2025 NotePATIENT:JOHNATHAN GONZALEZ [id number] LOCATION:4TH FLOOR I.D.#: [id number] : 1975 AGE: SEX:M DISCHARGED: ORDERED BY:LILA HEWITT MD M I C R O B I O L O G Y Patient: JOHNATHAN GONZALEZ [id number] Location: [facility] Aount: [id number] : 1975 Age: 49 Sex M Lab NumbEr [id number] Requested by: LILA HEWITT Admitdate: 10/26/24 Source: UR Collected: 10/26/24 15:51 Site: Received : 10/26/24 16:06 Culture, Urine FINAL 10/28/24 12:51 10/27/24 AEROBIC CULTURE RESULTS: #1: LIGHT GNB COLONY COUNT: 25,000 CFU/ml Organism 01 Enterobacter cloacae Organism E. cloacae [facility] Interp Amp/Sulbactam >16/8 R Ampicillin >16 R Aztreonam >16 R Cefazolin >16 R Cefepime <2 S Ceftazidime >16 R Ceftriaxone >2 R Ciprofloxacin <0.25 S Ertapenem 1 I Gentamicin <2 S Levofloxacin <0.5 S Nitrofurantoin <32 S Piperacillin/Asif >64 R Tobramycin <2 S Trimeth/Sulfa <2/38 S S=Sensitive I=Intermediate R=Resistant [facility]04-23-2025 NotePATIENT:JOHNATHAN GONZALEZ [id number] LOCATION:[address] [place] [address] I.D.#: [id number] : 1975 AGE: SEX:M DISCHARGED: ORDERED BY:LILA HEWITT MD M I C R O B I O L O G Y Patient: JOHNATHAN GONZALEZ [id number] Location: [facility] Aount: [id number] : 1975 Age: 49 Sex M Lab NumbEr [id number] Requested by: LILA HEWITT Admitdate: 10/26/24 Source: UR Collected: 10/26/24 15:51 Site: Received : 10/26/24 16:06 Culture, Urine FINAL 10/28/24 12:51 10/27/24 AEROBIC CULTURE RESULTS: #1: LIGHT GNB COLONY COUNT: 25,000 CFU/ml Organism 01 Enterobacter cloacae Organism E. cloacae [facility] Interp Amp/Sulbactam >16/8 R Ampicillin >16 R Aztreonam >16 R Cefazolin >16 R Cefepime <2 S Ceftazidime >16 R Ceftriaxone >2 R Ciprofloxacin <0.25 S Ertapenem 1 I Gentamicin <2 S Levofloxacin <0.5 S Nitrofurantoin <32 S Piperacillin/Asif >64 R Tobramycin <2 S Trimeth/Sulfa <2/38 S S=Sensitive I=Intermediate R=Resistant [facility]04-23-2025 Discharge summary Author SANA DUMONT [facility] Note Date/Time October 28, 2024 3:2 1pm [facility] [address] [place] [id number] HEALTH INFORMATION MANAGEMENT DISCHARGE SUMMARY : [id number] Signed Patient: JOHNATHAN GONZALEZ Acct:[id number] MRUN: [id number] : 1975 Sex: M Loc: 4TH FLOOR ADM Date: 10/26/24 Room/Bed: 432-B DISC Date: - Hospital Course Events Since Admission: JOHNATHAN GONZALEZ was admitted to MEDICAL SURGICAL service into room 432 on 10/26/24at 17:14 from Emergency Dept for complaints of FAILURE TO THRIVE CHRONIC LEFT HEMIPLEGIA UNABLE. Laboratory and diagnostic testing has been reviewed. The patient was seen, evaluated and found to be appropriate for discharge. Reason For Visit: FAILURE TO THRIVE CHRONIC LEFT HEMIPLEGIA UNABLE Hospital Course: Mr. Escobar a 49-year-old male comes to [facility] with complaints of being unable to take care of himself at home. 1. Failure to thrive /unable to perform ADLs: Patient has left-sided hemiparesis from CVA in 2019. His albumin is low at 2.5. He is not getting enough protein in his diet therefore I will order a dietary consult and a high-protein diet. Additionally we have ordered physical therapy evaluated the patient and recommends SNF placement.Patient is going to be discharged at [facility] 2. Hypokalemia, resolved Potassium 3.9 on discharge. on discharge recommend levofloxacin 750 mg p.o. daily for the following two weeks 3. Acute cystitis. Bacteriuria caused Enterococcus cloacae. Rocephin 1 mg q.12h IV. 4.GERD/GI prophylaxis Protonix 40 mg p.o. daily from home. 5. DVT prophylaxis wear Kofi hurtado received Lovenox 40 mg subQ daily throughout his hospital stay. Hospital Treatment: 10/28/24 04:05 10/28/24 04:05 Laboratory Results - last 24 hr 10/28/24 04:05: WBC 7.2, RBC 4.48, Hgb 12.7, Hct 37.7, MCV 84.2, MCH 28.3, MCHC 33.7, RDW 13.6, Plt Count 190, MPV 8.9, Neut % (Auto) 52.1, Lymph % (Auto) 35.6,[place] % (Auto) 8.9, Eos % (Auto) 3.1 H, Baso % (Auto) 0.3, Abs Immat Gran (man) 0, Absolute Neuts (auto) 3.76, Absolute Lymphs (auto) 2.60, Absolute Monos (auto) 0.60, Absolute Eos (auto) 0.20, Absolute Basos (auto) 0.02, Immature Gran% 0 10/28/24 04:05: Sodium 142, Potassium 3.9, Chloride 109, Total Carbon Dioxide 28, Anion Gap 8.9, BUN 11.5, Creatinine 1.00, Est GFR (MDRD) Af Amer > 60, Est GFR (MDRD) Non-Af > 60, BUN/Creatinine Ratio 12, Glucose 103 H, Calcium 8.5, Total Bilirubin 0.41, AST 36, ALT 33, Alkaline Phosphatase 109, Total Protein 5.7 L, Albumin 2.4 L, Globulin 3.3, Albumin/Globulin Ratio 0.7 L Intake & Output 10/25/24 10/26/24 10/27/24 10/28/24 23:59 23:59 23:59 23:59 Intake Total 200 960 890 Output Total 350 700 Balance -150 260 890 Weight 191 lb 14.4 oz 191 lb 14.4 oz 191 lb 9.6 oz See radiology reports in electronic medical record. - Discharge Information Discharge Diagnosis:: failure to thrive. unable to perform ADLs. hypokalemia. acute cystitis- new diagnosis. E. Cloacae- bacteriuria-new diagnosis. history of HTN, CVA, headaches, residual left-sided hemiplegia Disposition: 03 RESIDENTIAL FACILITY Condition: Fair Plan of Treatment: Patient is going to be discharged at [facility] physical therapist recommend SNF placement patient was diagnosed with acute cystitis and Enterococcus cloacae- bacteriuriaand recommend levofloxacin 750 mg p.o. daily for the following two weeks follow-up with the primary care physician in one week after discharge - Discharge Instructions Referrals: ROMIE SAHU MD [MEDICAL DOCTOR] - 11/02/24 1:00 pm Prescriptions & home med reconciliation (Convert): Levofloxacin 750 mg PO DAILY 14 Days #14 tablet Amlodipine Besylate [Norvasc 5 mg Tablet] 10 mg PO DAILY 30 Days #60 tablet Lidocaine HCl [Lidocaine Viscous 2% Liquid] 15 ml PO Q3H PRN 30 Days #2 bot PRN Reason: TOOTH PAIN Nicotine [Nicoderm Cq 21 mg/24 Hr Patch] 1 patch TP Q24H 30 Days #30 patch Work Note: Discharge Instruction Sheet, Patient Portal Instructions: Hypokalemia, Malnutrition, Adult, Qkod-nx-Xmgo Special Instructions: Patient is going to be discharged at [facility]. physical therapist recommend SNF placement. patient was diagnosed with acute cystitis and Enterococcus cloacae- bacteriuria and recommend levofloxacin 750 mgp.o. daily for the following two weeks. repeat CBC, CMP next week after discharge. follow-up with the primary care physician in one week after discharge Activity Level For Discharge:: As Tolerated Discharge Diet: No Added Salt - ASCVD SCORING Was this patient admitted for chest pain?: No Does this patient have a new DX of ASCVD?: No Visit Coding - VISIT CODING Date of Service: 10/28/24 Billing Provider:: SANA DUMONT Common Visit Codes: 11966-WVG/OBS DISCH DAY >30min Secondary Visit Codes: 30645-[id number] CHNG SMOKING 3-10m Electronically Generated By:SANA DUMONT MD Generated Date/Time: 10/28/24 1455 Electronically Signed By: <Electronically signed by SANA DUMONT MD> 10/28/24 1521 Co Signed Electronically By: Co Signed Date/Time: CC: GAURAV SPEARS MD [facility] Work Phone: [phone] 675-997104-23-2025 History and physical note Author KORTNEY YU [facility] Note Date/Time October 28, 2024 3:0 8pm [facility] [address] [place] [address] HEALTH INFORMATION MANAGEMENT HISTORY AND PHYSICAL : [id number] Signed Patient: JOHNATHAN GONZALEZ Acct:[id number] MRUN: [id number] : 1975 Sex: M Loc: 4TH FLOOR ADM Date: 10/26/24 Room/Bed: 432-B DISC Date: History of Present Illness Date Of Admission: 10/26/24 Chief Complaint: Unable to care for him self at home. Left hemiplegia, hypokalemia History of Present Illness: Visit History JOHNATHAN GONZALEZ is a 49 year old M patient of ROMIE SAUH. Patientwas admitted from to room 432, bed B on 10/26/24 17:14. Pt was evaluated for complaints of , then admitted to [facility] for FAILURE TO THRIVE CHRONIC LEFT HEMIPLEGIA UNABLE. JOHNATHAN was admitted as a ADM to [facility] for further evaluation and treatment. Pt was seen and evaluated on 10/26/242056, by this provider, KORTNEY YU CNP. History of present illness: Mr. Escobar a 49-year-old male comes to [facility] with complaints of being unable to take care of himself at home. Unfortunately he suffered right hemiplegia from a CVA he experienced in 2019. During his ER evaluation he was found to have hypokalemia. Patient was at a nursing facility but began to be sexually inappropriate especially with one female patient. His took him home and started to care for him and her [id number]. She is finding it too difficult to take care of both of them and patient is unable to help with ADLs or ambulate due to his left hemiparesis. Therefore unfortunatelyhe has experiencing failure to thrive and lack of self-care. We will be ordering physical therapy to evaluate and treat him as well as make outpatient recommendations for further therapy. I will also be consulting social services designee to assist with either additional home services or possible admission to skilled rehab/nursing facility. Patient denies fever, chills, cough, sore throat, runnynose, congestion, diaphoresis, rash, shortness of breath, chest pain, abdominal pain, nausea / vomiting, diarrhea / constipation, blood in urine or stool, change in appetite, numbness/tingling / paresthesias, change in vision hearing or speech, exposure to COVID positive individuals. He has a past medical history /surgical history that includes: HTN, CVA, headaches, left-sided weakness, neurological surgery, GERD, back pain, anxiety depression, explosive disorder, behaviors. Patient does not remember if he received a COVID- 19 vaccine does not receive a flu shot. He used to live at [facility] for two years however the last month he has lived at home with his , he is . She is taking care of her mother and him. Unfortunately she is finding it very difficult to do so. I am unsure if she has any access to community resources to assist her. Patient reports he does not use illicit drugs or drinks alcohol. He does chew tobacco proximally one pouch a month. Allergies/Adverse Reactions: No Known Allergies Allergy (Verified 04/26/19 04:44) Home Medications: Patient History Acetaminophen [Aphen] 650 mg PO Q4H PRN 02/08/22 [History Confirmed 06/25/23] Levetiracetam [Keppra] 500 mg PO BID 02/08/22 [History Confirmed 06/25/23] Melatonin 5 mg PO QHS 02/08/22 [History Confirmed 06/25/23] Menthol [Biofreeze] 1 applic TP BID 02/08/22 [History Confirmed 06/25/23] Rivastigmine Tartrate [Rivastigmine] 6 mg PO BID 02/08/22 [History Confirmed 06/25/23] Albuterol Sulfate [Albuterol Sulfate Hfa] 8.5 gm IH Q4H PRN 02/10/23 [History Confirmed 06/25/23] Duloxetine HCl [Cymbalta] 60 mg PO DAILY 02/10/23 [History Confirmed 06/25/23] Medroxyprogesterone Acetate [Provera] 10 mg PO BID 02/10/23 [History Confirmed 06/25/23] Polyethylene Glycol 3350 [Miralax Packet 17 gm] 1 packet PO DAILY PRN 02/10/23 [History Confirmed 06/25/23] Zofran 4 mg Odt 4 cap PO .PER.INSTRUCTIONS PRN 02/10/23 [History Confirmed 06/25/23] Aspirin [Adult Low Dose Aspirin EC] 81 mg PO DAILY 06/22/23 [History Confirmed 06/25/23] Baclofen 5 mg PO BID 06/22/23 [History Confirmed 06/25/23] Benzocaine/Menthol/Zinc Chlor [Orajel 3X Mouth Sores Gel] 1 applic PO QID PRN 06/22/23 [History Confirmed 06/25/23] Hydrocortisone [Hydrocortisone 1% Ointment] 1 applic TP QID PRN 06/22/23 [History Confirmed 06/25/23] Nitroglycerin [Nitrostat] See Rx Instructions .ROUTE .COMPLEX PRN 06/22/23 [History Confirmed 06/25/23] RX history Finasteride [Proscar 5 mg Tablet] 5 mg PO DAILY tablet 02/16/22 [Rx Confirmed 06/25/23] Tamsulosin HCl [Flomax] 0.4 mg PO DAILY 30 Days #30 capsule 02/16/22 [Rx Confirmed 06/25/23] Amlodipine Besylate [Norvasc 5 mg Tablet] 5 mg PO DAILY tablet 06/24/23 [Rx Confirmed 06/25/23] Atorvastatin Calcium [Lipitor 40 mg Tablet] 40 mg PO QHS tablet 06/24/23 [Rx Confirmed 06/25/23] Magnesium Hydroxide [Milk of Magnesia] 30 ml PO DAILY #0 06/27/23 [Rx Confirmed 06/25/23] Pantoprazole Sodium 40 mg PO DAILY #30 06/27/23 [Rx] Past Social History Marital Status: Lives with: Family Occupation: Lives at home w/ and [id number]. 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 Choose all that Apply: Male Define your Sexual Orientation?: Straight/Heterosexual - [place]-Suicide Severity Rating Scale 1) Wish to be :: No 2) Suicidal Thoughts:: No 6) Suicidal Behavior Question (A): LIFETIME: No 6) Suicidal Behavior Question (B): PAST 3 MONTHS: No Past Medical History Hx Ear/Nose/Throat Disorders: No Hx Neurological Disorder: Yes PMH-Neurological: Confirms: CVA, Headaches PMH Other-Neuro:: LEFT SIDE WEAKNESS PSH-Neurological: Confirms: Neurological Surgery Hx Psychosocial Problems: No PMH--Psychological & Treatments: Confirms: Anxiety, Depression PMH--Other-Psyc:: EXPLOSIVE DISORDER, BEHAVIORS Hx Cardiac Disorders: Yes PMH--Cardiovascular: Confirms: HTN Hx Respiratory Disorders: No Hx Endocrine Disorders: No Hx Musculoskeletal Disorders: Yes PSH--Other-MS:: CRANIOTOMY ON RIGHT, WEARS HELMET WHEN OUT OF BED Hx Reproductive Disorders: No Hx Genitourinary Disorders: No PMH--Other-:: back pain Hx Gastrointestinal Disorders: No PMH--Gastrointestinal: Confirms: GERD Hx Cancer: No Other PMH: Confirms: Chicken Pox Family Medical History - Family Medical History No Significant Family History Ethnicity: Pt declinded to provide Review of Systems General: Denies: Fever, Chills, Sweats, Weakness, Fatigue, Weight Gain, Weight Loss, Other Head/Eye: Denies: Headache, Head Injury/Trama, Hear Loss, Pain, Itching, Redness, Matting, Blurry Vision, Double Vision, Scotoma (Spots), Amauriosis, Excessive Tearing, Other ENT: Denies: Earache, Ear Discharge, Decreased Hearing, Tinnitus, Nose Congestion, Nose Drainage, Nasal Ulcers, Epitaxis, Sore Throat, Throat Swelling, Hoarseness, Loss Of Voice, Tongue Pain, Tongue Swelling, Lip Swelling, Dental Pain, Cervical, Other Respiratory: Denies: Cough, Shortness of Breath, Wheezing, Sputum Production, Hemoptysis, Dyspnea on Exertion, Pleuritic Pain, Other Cardiovascular: Denies: Chest Pain-Sharp, Chest Pain-Heavy, Orthopnea, Short of Breath, Dyspnea on Exertion, Paroxysmal Noc. Dyspnea, Edema, Palpitations, Light Headedness, 7, Syncope, Diaphoresis, Claudication, Edema, Other Gastrointestinal: Denies: Nausea, Vomiting, Abdominal Pain, Diarrhea, Constipation, Melena, Hematochezia, Hematemesis, Rectal Pain, Other Genitourinary: Denies: Dysuria, Frequency, Incontinence, Hematuria, Retention, Urgency, Other Musculoskeletal: Confirms: Other (Left hemiplegia.). Denies: Neck Pain, Shoulder Pain, Arm Pain, Back Pain, Hand Pain, Leg Pain, Foot Pain Skin: Denies: Rash, Lesions, Jaundice, Bruising, Other Neurological: Confirms: Other ( Unable to provide self-care at home). Denies: Weakness, Numbness, Incoordination, Change in Speech, Confusion, Seizures Physical Exam Review of Systems Completed?: Yes Vital Signs: Vital Signs (72 hours) 10/26/24 10/26/24 10/26/24 11:27 11:42 12:00 Temperature 98.1 F Pulse Rate 88 Pulse Rate [ 83 Right VS Machine] Respiratory 16 Rate Blood Pressure 114/88 Blood Pressure 120/87 [Right Arm] O2 Sat by Pulse 95 97 Oximetry(%) 10/26/24 10/26/24 10/26/24 13:01 13:31 15:48 Temperature Pulse Rate Pulse Rate [ Right VS Machine] Respiratory Rate Blood Pressure 134/84 119/90 129/85 Blood Pressure [Right Arm] O2 Sat by Pulse Oximetry(%) 10/26/24 10/26/24 10/26/24 16:01 17:00 17:17 Temperature Pulse Rate Pulse Rate [ Right VS Machine] Respiratory Rate Blood Pressure 128/61 112/81 Blood Pressure [Right Arm] O2 Sat by Pulse 95 Oximetry(%) 10/26/24 10/26/24 10/26/24 17:30 17:40 17:50 Temperature Pulse Rate 75 73 75 Pulse Rate [ Right VS Machine] Respiratory Rate Blood Pressure Blood Pressure [Right Arm] O2 Sat by Pulse 95 94 L 95 Oximetry(%) 10/26/24 10/26/24 18:00 18:10 Temperature Pulse Rate 70 73 Pulse Rate [ Right VS Machine] Respiratory Rate Blood Pressure Blood Pressure [Right Arm] O2 Sat by Pulse 94 L 95 Oximetry(%) General: Yes: Alert, Oriented (X3), Cooperative/Pleasant, No acute distress HEENT: Yes: Atraumatic, PERRLA, EOMI, Mucous membr. moist/pink Lungs: Yes: Clear to auscultation, Normal air movement, Unlabored. No: Exibits Shortness of [place], Shortness Of Breath Scale Cardiovascular: Yes: Regular rate, Normal S2, Normal S1, No murmurs Abdomen: Yes: Bowel Sounds X4, Soft, Large/Obese, No Tenderness. No: Distended,Rigid, Nausea/Vomiting, Emesis Present, Constipation, Diarrhea Extremities: Yes: No tenderness/swelling, Normal pulses. No: Clubbing, Cyanosis, Edema, Bilateral Leg Edema, Mottling noted Skin: No: Rashes, Skin Breakdown, Significant lesions, Open Wound Present, Skin Tear Neurological: Yes: Speech Clear, Strength Normal X4 ext, Cranial nerves 3-12 NL,Cognitive Ability Intact Psych/Mental Status: Yes: Mental status NL, Mood Appropriate. No: Depressed/Withdrawn, Hallucinations Genitourinary/Rectal: Yes: Deferred-Not Relevant Breast Exam: Yes: Deferred-Not Relevant Impressions - Problems (1) Adult failure to thrive Status: Acute Priority: High Present on admission?: Yes Current Visit: Yes (2) Hypokalemia Status: Acute Priority: High Present on admission?: Yes Current Visit: Yes (3) Loss of functional autonomy in activities of daily living (ADLs) Status: Acute Priority: High Present on admission?: Yes Current Visit: Yes Plan/Treatment Current Plan: See New Orders Plan: Impression/Plan: 1. Failure to thrive /unable to perform ADLs: Patient has left-sided hemiparesis from CVA in 2019. His albumin is low at 2.5. He is not getting enough protein in his diet therefore I will order a dietary consult and a high-protein diet. Additionally we have ordered physical therapy to evaluate, treat and make treatment recommendations for outpatient therapy. We have also orderedsocial Services to offer possible community resources including home health for patient and his qyyxep-[id number] versus inpatient rehab/SNF placement. 2. Hypokalemia: Potassium 3.2 upon arrival to the emergency room. He was givenK- Lyte 25 mEq p.o. in the emergency room. We will re-evaluate electrolytes and kidney function in the morning. 3. GERD/GI prophylaxis: We have ordered Protonix 40 mg p.o. daily from home. 4. DVT prophylaxis: Patient will wear Kofi hoscandie received Lovenox 40 mg subQ daily throughout his hospital stay. Visit Coding - VISIT CODING Date of Service: 10/26/24 Billing Provider:: KORTNEY YU Common Visit Codes: [id number] INP/OBS CARE (MOD) Electronically Generated By:KORTNEY YU CNP Generated Date/Time: 10/26/242056 Electronically Signed By: <Electronically signed by KORTNEY YU [facility]> 10/27/24 0047 <Electronically signed by SANA DUMONT MD> 10/28/24 1508 Co Signed Electronically By: SANA DUMONT MD Co Signed Date/Time: 10/28/24 1508 CC: GAURAV SPEARS MD [facility] Work Phone: [phone] Discharge summary Author LILA HEWITT [facility] Note Date/Time October 26, 2024 5:1 4pm [facility] [address] [place] [id number] HEALTH INFORMATION MANAGEMENT EMERGENCY DEPARTMENT : [phone] Signed Patient: JOHNATHAN GONZALEZ Acct:[id number] MRUN: [id number] : 1975 Sex: M Loc: ED AD M Date: 10/26/24 Room/Bed: DISC Date: History of Present Illness - General Chief complaint: Other Stated complaint: WANTS SNF PLACEMENT Symptom onset: TODAY HPI: PT TO RM 1 VIA [facility] FROM HOME WITH NO COMPLAINTS, STATING HE AND HIS SPOUSE WANT HIM TO HAVE AN EVAL FOR PLACEMENT IN [facility] R/T TOO DIFFICULT TO TAKE CARE OF HIM AT HOME. PT HAD CVA IN 2019 WITH LEFT SIDED WEAKNESS REMAINING. PT NON AMBULATORY, PT A&O X4, DENIES PAIN. [place] [facility] [place] AND SPOUSE IS TAKING CARE OF HIM AND HER MOTHER AT THEIRHOME, PT STATES IT'S TOO MUCH FOR HER. 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 unable to take care of him. Hence in the emergency room to be placed back to the jail. Reports he called his jail and was told to come to the ER for the same. Has not called his PCP to help him with his placement. Has no other complaintsno new injury or fall. Denies any pain. Denies any travelling history/sick contacts/recent use of antibiotics/Covid exposure. No cough/congestion/fever/chills/rash. No blood in stool/vomitus or urine. NO LOC/Dizziness/Syncope. No headache/neck pain/dyspnea/chest pain or abdominal pain. No speech or vision problems. No new or worsening unilateral weakness inface or extremities Time Seen by Provider: 10/26/24 11:26 Mode of Transport: [facility] - Related Data Home Medications Medication Instructions Recorded Confirmed Acetaminophen [Aphen] 650 mg PO Q4H PRN 02/08/22 06/25/23 Levetiracetam [Keppra] 500 mg PO BID 02/08/22 06/25/23 Melatonin 5 mg PO QHS 02/08/22 06/25/23 Menthol [Biofreeze] 1 applic TP BID 02/08/22 06/25/23 Rivastigmine Tartrate 6 mg PO BID 02/08/22 06/25/23 [Rivastigmine] Finasteride [Proscar 5 mg Tablet] 5 mg PO DAILY tablet 02/16/22 06/25/23 Tamsulosin HCl [Flomax] 0.4 mg PO DAILY 30 Days #30 capsule 02/16/22 06/25/23 Albuterol Sulfate [Albuterol 8.5 gm IH Q4H PRN 02/10/23 06/25/23 Sulfate Hfa] Duloxetine HCl [Cymbalta] 60 mg PO DAILY 02/10/23 06/25/23 Medroxyprogesterone Acetate 10 mg PO BID 02/10/23 06/25/23 [Provera] Polyethylene Glycol 3350 [Miralax 1 packet PO DAILY PRN 02/10/23 06/25/23 Packet 17 gm] Zofran 4 mg Odt 4 cap PO .PER.INSTRUCTIONS PRN 02/10/23 06/25/23 Aspirin [Adult Low Dose Aspirin EC] 81 mg PO DAILY 06/22/23 06/25/23 Baclofen 5 mg PO BID 06/22/23 06/25/23 Benzocaine/Menthol/Zinc Chlor 1 applic PO QID PRN 06/22/23 06/25/23 [Orajel 3X Mouth Sores Gel] Hydrocortisone [Hydrocortisone 1% 1 applic TP QID PRN 06/22/23 06/25/23 Ointment] Nitroglycerin [Nitrostat] See Rx Instructions .ROUTE 06/22/23 06/25/23 .COMPLEX PRN Amlodipine Besylate [Norvasc 5 mg 5 mg PO DAILY tablet 06/24/23 06/25/23 Tablet] Atorvastatin Calcium [Lipitor 40 40 mg PO QHS tablet 06/24/23 06/25/23 mg Tablet] Magnesium Hydroxide [Milk of 30 ml PO DAILY #0 06/27/23 06/25/23 Magnesia] Pantoprazole Sodium 40 mg PO DAILY #30 06/27/23 Allergies Allergy/AdvReac Type Severity Reaction Status Date / Time No Known Allergies Allergy Verified 04/26/19 04:44 Review of System - Constitutional Constitutional: Present: see HPI, Well developed, Well nourished, Non-toxic. Absent: diaphoresis, fever, Lethargic - Nose,Throat,Mouth Nose (ROS): Present: no symptoms reported. Absent: pain Throat: Present: no symptoms reported. Absent: pain, swelling, discharge Mouth: Present: no symptoms reported. Absent: pain, swelling - Respiratory Respiratory: Present: no symptoms reported. Absent: cough, short of breath, wheezing - CV Cardiology: Present: no symptoms reported. Absent: chest pain, edema - GI Gastrointestinal/Abdominal: Present: no symptoms reported. Absent: abdominal pain, diarrhea, nausea, vomiting - Genitourinary Symptoms: Present: no symptoms reported. 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 Absent: headache, weakness - Muskuloskeletal Musculoskeletal: Absent: back pain, joint pain, joint swelling - Integumentary Skin: Absent: lesions, rash - Allergic/Immunologic Immunological/Allergic: Present: no symptoms reported - Hematologic Hematologic/Lymphatic: Absent: easy bleeding, easy bruising, swollen glands - Endocrine Endocrine: Present: no symptoms reported - Psychiatric Psychiatric: Present: Normal Affect, Normal Mood. Absent: Depressed - All Others/Exceptions All Other Systems: Reviewed and Negative Except Where Noted in Documentation ED PMH/Social HX/Family HX - Respiratory Hx Respiratory Disorders: No - Cardiovascular Hx Cardiac Disorders: Yes PMH--Cardiovascular: HTN - Neurological Hx Neurological Disorder: Yes PMH--Neurological: CVA, Headaches Other Neuro PMH: LEFT SIDE WEAKNESS PSH-Neurological: Neurological Surgery - Endocrine Hx Endocrine Disorders: No - Gastrointestinal Hx Gastrointestinal Disorders: No PMH--Gastrointestinal: GERD - Genitourinary Hx Genitourinary Disorders: No - Musculoskeletal Hx Musculoskeletal Disorders: Yes Other MS PMH: back pain - Reproductive Hx Reproductive Disorders: No - Psychological Hx Psychosocial Problems: No PMH--Psychological & Treatments: Anxiety, Depression Other Psychological PMH: EXPLOSIVE DISORDER, BEHAVIORS - HEENT Hx Ear, Nose Throat Disorders: No - Cancer Hx Cancer: No - Other Other PMH: Chicken Pox - Social History Highest Educational Level: High School Able to Read: Yes Able to Write: Yes Smoking Status: Never Smoked Hx Chewing Tobacco Use: Yes Cans/Bags Per Day Chewed [ED.CHEW]: 1 Alcohol Use: Rarely Any recreational drug use reported?: No Feels Threatened In Home Environment: No Feels Threatened In a Relationship: No - Family PMH No Significant Family History Ethnicity: Pt declinded to provide - [place]/Gender ID What is your current Gender Identity? Choose all that Apply: Male Define your Sexual Orientation?: Straight/Heterosexual - [place]-Suicide Severity Rating Scale 1) Wish to be :: No 2) Suicidal Thoughts:: No 6) Suicidal Behavior Question (A): LIFETIME: No 6) Suicidal Behavior Question (B): PAST 3 MONTHS: No General Exam Sepsis focused exam performed?: Yes - General Limitations: Complains of: no limitations Constitutional: Present: see HPI, Well developed, Well nourished, well hydrated, Non-toxic. Absent: chills, diaphoresis, fever, malaise, weakness, Lethargic - Head Head exam: Present: atraumatic, normocephalic, normal inspection - Eye Eye exam: Present: normal apperance, normal accomodation, EOMI Pupils: Present: PERRL - ENT ENT exam: Present: normal orophraynx, mucous membranes moist, TMs clear w/ good light reflex, normal external ear exam, No Nasal Discharge, Posterior Pharynx Non-erethemetous - Expanded ENT Exam Ear exam: Present: normal external inspection Mouth exam: Present: normal external inspection Teeth exam: Present: normal inspection Throat exam: normal inspection - Neck Neck exam: Present: full ROM, Supple. Absent: tenderness, meningismus, Posterior Lymphadenopathy, Anterior Lymphadenopathy, anterior neck swelling - Respiratory Respiratory exam: Present: lungs clear and equal bilaterally. Absent: respiratory distress, wheezes, rales, rhonchi, stridor, accessory muscle use, Nasal Flaring - Cardiovascular Cardiovascular Exam: Present: regular rate, normal rhythm, normal heart sounds. Absent: murmur, rubs, gallop, clicks - GI/Abdominal GI/Abdominal exam: Present: soft, non tender, normal bowel sounds. Absent: guarding, rebound, rigid, mass, bruit, tenderness - Extremities Exam Extremities exam: Present: normal inspection, neurovascularly intact, full ROM, normal/equal pulses, other ( CHRONIC LEFT HEMIPLEGIA FROM PRIOR CVA). Absent: tenderness - Back Exam Back exam: Present: normal inspection, full ROM. Absent: tenderness - Neurological Exam Neurological exam: Present: alert, oriented X3, CN II-XII intact, other ( CHRONIC LEFT HEMIPLEGIA FROM PRIOR CVA. NO NEW OR WORSENING ACUTE NEUROVASCULAR DEFICITS NOTED) - Expanded Neurological Exam Patient oriented to: Present: person, place, time Speech: Present: fluid speech - Psychiatric Psychiatric exam: Present: normal affect, normal mood - Skin Skin Color: Present: Normal, [place] Skin exam: Present: warm, dry - Expanded Skin Exam Type of lesion: Absent: rash - Vital Signs Vital Signs 10/26/24 10/26/24 10/26/24 11:27 11:42 12:00 Temperature 98.1 F Pulse Rate 88 Pulse Rate [ 83 Right VS Machine] Respiratory 16 Rate Blood Pressure 114/88 Blood Pressure 120/87 [Right Arm] O2 Sat by Pulse 95 97 Oximetry(%) 10/26/24 10/26/24 10/26/24 13:01 13:31 15:48 Temperature Pulse Rate Pulse Rate [ Right VS Machine] Respiratory Rate Blood Pressure 134/84 119/90 129/85 Blood Pressure [Right Arm] O2 Sat by Pulse Oximetry(%) Medical Desicion Making - Lab Data Result diagrams: 10/26/24 12:10 10/26/24 12:10 Lab Results 10/26/24 10/26/24 10/26/24 Range/Units 12:10 12:10 13:53 WBC 8.8 (3.6-10.8) K/uL RBC 4.88 (4.13-5.69) M/uL Hgb 13.5 (12.4-17.3) g/dL Hct 40.0 (36.7-50.6) % MCV 82.0 (80.0-94.0) fL MCH 27.7 (27.0-31.0) pg MCHC 33.8 (33.0-37.0) g/dL RDW 13.5 (11.5-14.5) % Plt Count 200 (148-402) K/uL MPV 8.6 (7.4-10.4) fL Neut % (Auto) 77.4 H (43.0-65.0) % Lymph % (Auto) 14.4 L (17.0-45.5) % [place] % (Auto) 5.7 (5.5-11.7) % Eos % (Auto) 2.1 (0.9-2.9) % Baso % (Auto) 0.3 (0.2-1.0) % Abs Immat Gran (man) 0.01 (0.00-0.10) K/uL Absolute Neuts (auto) 6.78 H (2.20-4.80) K/uL Absolute Lymphs (auto) 1.30 (1.30-2.90) K/uL Absolute Monos (auto) 0.50 (0.30-0.80) K/uL Absolute Eos (auto) 0.20 (0.00-0.20) K/uL Absolute Basos (auto) 0.03 (0.00-0.10) K/uL Immature Gran % 0.10 (0.00-1.00) % Sodium 140 (132-145) mmol/L Potassium 3.2 L (3.3-5.1) mmol/L Chloride 108 (94-110) mmol/L Total Carbon Dioxide 27 (21-34) mmol/L Anion Gap 8.2 (8.0-16.0) mmol/L BUN 12.4 (3.2-26.9) mg/dL Creatinine 1.00 (0.50-1.17) mg/dL Est GFR (MDRD) Af Amer > 60 (>60) Est GFR (MDRD) Non-Af > 60 (>60) BUN/Creatinine Ratio 12 (6-20) Glucose 122 H (65-100) mg/dL Calcium 8.6 (8.2-10.0) mg/dL Total Bilirubin 0.44 (0.00-0.99) mg/dL AST 13 (3-39) U/L ALT 20 (13-66) U/L Alkaline Phosphatase 116 H (54-112) U/L Troponin I High Sens 6 6 (0-76) ng/L Troponin I Hi Sens Del 0 % Troponin I Hi Sens Abs Chng 0 ng/L Total Protein 6.2 (6.1-8.2) g/dL Albumin 2.5 L (3.4-5.0) g/dL Globulin 3.7 (1.5-4.5) g/dL Albumin/Globulin Ratio 0.7 L (1.1-2.5) Urine Color (Yellow) Urine Appearance (Clear) Urine pH Ur Specific [place] (1.015-1.025) Urine Protein (Negative) Urine Ketones (Negative) Urine Blood (Negative) Urine Nitrite (Negative) Urine Bilirubin (Negative) Urine Ictotest (Negative) Urine Urobilinogen (Normal-1.0) mg/dL Ur Leukocyte Esterase (Negative) Urine RBC (0 - 2) /hpf Urine WBC (0 - 6) /hpf Ur Epithelial Cells (0 - 6) /lpf Urine Bacteria (0 - 1+) /hpf Urine Mucus /lpf Urine Glucose (Negative) 10/26/24 10/26/24 10/26/24 Range/Units 15:48 15:51 15:51 WBC (3.6-10.8) K/uL RBC (4.13-5.69) M/uL Hgb (12.4-17.3) g/dL Hct (36.7-50.6) % MCV (80.0-94.0) fL MCH (27.0-31.0) pg MCHC (33.0-37.0) g/dL RDW (11.5-14.5) % Plt Count (148-402) K/uL MPV (7.4-10.4) fL Neut % (Auto) (43.0-65.0) % Lymph % (Auto) (17.0-45.5) % [place] % (Auto) (5.5-11.7) % Eos % (Auto) (0.9-2.9) % Baso % (Auto) (0.2-1.0) % Abs Immat Gran (man) (0.00-0.10) K/uL Absolute Neuts (auto) (2.20-4.80) K/uL Absolute Lymphs (auto) (1.30-2.90) K/uL Absolute Monos (auto) (0.30-0.80) K/uL Absolute Eos (auto) (0.00-0.20) K/uL Absolute Basos (auto) (0.00-0.10) K/uL Immature Gran % (0.00-1.00) % Sodium (132-145) mmol/L Potassium (3.3-5.1) mmol/L Chloride (94-110) mmol/L Total Carbon Dioxide (21-34) mmol/L Anion Gap (8.0-16.0) mmol/L BUN (3.2-26.9) mg/dL Creatinine (0.50-1.17) mg/dL Est GFR (MDRD) Af Amer (>60) Est GFR (MDRD) Non-Af (>60) BUN/Creatinine Ratio (6-20) Glucose (65-100) mg/dL Calcium (8.2-10.0) mg/dL Total Bilirubin (0.00-0.99) mg/dL AST (3-39) U/L ALT (13-66) U/L Alkaline Phosphatase (54-112) U/L Troponin I High Sens (0-76) ng/L Troponin I Hi Sens Del % Troponin I Hi Sens Abs Chng ng/L Total Protein (6.1-8.2) g/dL Albumin (3.4-5.0) g/dL Globulin (1.5-4.5) g/dL Albumin/Globulin Ratio (1.1-2.5) Urine Color brown (Yellow) Urine Appearance Clear (Clear) Urine pH 5 Ur Specific [place] 1.025 (1.015-1.025) Urine Protein 15 A (Negative) Urine Ketones Negative (Negative) Urine Blood Negative (Negative) Urine Nitrite Negative (Negative) Urine Bilirubin 1 A (Negative) Urine Ictotest Negative (Negative) Urine Urobilinogen Normal (Normal-1.0) mg/dL Ur Leukocyte Esterase Trace A (Negative) Urine RBC 0-2 (0 - 2) /hpf Urine WBC 2-5 (0 - 6) /hpf Ur Epithelial Cells 0-2 (0 - 6) /lpf Urine Bacteria 2+ (0 - 1+) /hpf Urine Mucus 3+ /lpf Urine Glucose Normal (Negative) Orders: Medications Discontinued Medications Potassium Bicarbonate (Potassium Bicarb/Cit 25 Meq Eff Tablet) 25 meq PO STAT STA Stop: 10/26/24 12:46 Last Admin: 10/26/24 13:29 Dose: 25 meq Documented by: [id number] Labs 10/26/24 11:34 Resuscitation Status Order Routine 10/26/24 11:53 12-Lead per nursing [RC] STAT ED-IV [RC] ONE CHEST AP [DIAG] Stat EKG [CAR] Stat Telemetry [RC] ONE 10/26/24 12:10 CBC w/Auto Differential [HEM] Stat Comprehensive Metabolic Panel [CHM] Stat High Sensitivity Troponin I* [CHM] Stat 10/26/24 12:45 Potassium Bicarbonate/Cit AC [K-Lyte 25 Meq Effervescent Tablet] 25 meq PO STAT STA 10/26/24 13:53 High Sensitivity Troponin I* [CHM] Routine 10/26/24 15:51 Bilirubin Confirmation [URN] Stat UA w/micrscopic-reflex culture [URN] Stat 10/26/24 16:06 Culture Urine [MIC2] Stat - Radiology Data Radiology Report: Radiology report reviewed,see report for findings IMPRESSIONS Chest X-Ray 10/26/24 11:53 IMPRESSION: No acute cardiopulmonary process. Electrocardiogram 10/26/24 11:53 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 EKG showed normal sinus rhythm. Heart rate of 83. No findings of STEMI. Labs unremarkable, chest x-ray unremarkable. We did consult case management in the said patient needs to be admitted for three day hospital stay for him to go back [facility] the jail. Patient unable to take care of himself. His is unable to care for himself we will admit him for failure to thrive and for case management to send him to the jail from where he was discharged approximately a month ago. He has chronic hemiplegia on the left side from prior stroke. Patient otherwise asymptomatic. Vital signs are stable. Denies any pain. No new or worsening unilateral weakness in face or extremities noted. No acute neurovascular deficits noted. He is afebrile, appears nontoxic. Vital signs are stable. Potassium OF 3.2 4:50 pm Patient agrees with admission to [facility] and plan for sending him to the jail and he states understanding of the same case discussed with the admitting hospitalist who will admit the patient and also agrees with management and plan ED Discharge Summary - Discharge Data Clinical Impression: Chronic left hemiplegia, Adult failure to thrive Condition: Fair Disposition: ADMITTED INPATIENT Referrals: ROMIE SAHU MD [Primary Care Provider] - Home Medications: Ambulatory Orders Medication Instructions Recorded Acetaminophen [Aphen] 650 mg PO Q4H PRN 02/08/22 Levetiracetam [Keppra] 500 mg PO BID 02/08/22 Melatonin 5 mg PO QHS 02/08/22 Menthol [Biofreeze] 1 applic TP BID 02/08/22 Rivastigmine Tartrate 6 mg PO BID 02/08/22 [Rivastigmine] Finasteride [Proscar 5 mg Tablet] 5 mg PO DAILY tablet 02/16/22 Tamsulosin HCl [Flomax] 0.4 mg PO DAILY 30 Days #30 capsule 02/16/22 Albuterol Sulfate [Albuterol 8.5 gm IH Q4H PRN 02/10/23 Sulfate Hfa] Duloxetine HCl [Cymbalta] 60 mg PO DAILY 02/10/23 Medroxyprogesterone Acetate 10 mg PO BID 02/10/23 [Provera] Polyethylene Glycol 3350 [Miralax 1 packet PO DAILY PRN 02/10/23 Packet 17 gm] Zofran 4 mg Odt 4 cap PO .PER.INSTRUCTIONS PRN 02/10/23 Aspirin [Adult Low Dose Aspirin EC] 81 mg PO DAILY 06/22/23 Baclofen 5 mg PO BID 06/22/23 Benzocaine/Menthol/Zinc Chlor 1 applic PO QID PRN 06/22/23 [Orajel 3X Mouth Sores Gel] Hydrocortisone [Hydrocortisone 1% 1 applic TP QID PRN 06/22/23 Ointment] Nitroglycerin [Nitrostat] See Rx Instructions .ROUTE 06/22/23 .COMPLEX PRN Amlodipine Besylate [Norvasc 5 mg 5 mg PO DAILY tablet 06/24/23 Tablet] Atorvastatin Calcium [Lipitor 40 40 mg PO QHS tablet 06/24/23 mg Tablet] Magnesium Hydroxide [Milk of 30 ml PO DAILY #0 06/27/23 Magnesia] Pantoprazole Sodium 40 mg PO DAILY #30 06/27/23 Time Seen by Provider: 10/26/24 11:26 Electronically Generated By:LILA HEWITT MD Generated Date/Time: 10/26/24 1210 Electronically Signed By: <Electronically signed by LILA HEWITT MD> 10/26/24 1714 Co Signed Electronically By: Co Signed Date/Time: CC: ROMIE SAHU MD [facility] Work Phone: 1(446) 888-212704-21-2025 Evaluation note* Diagnosis Onset Date Resolution Status Admit Date Failure to Thrive in Adult acute October 26, 2024 5:14pm Hypokalemia acute October 26, 2 025 5:14pm Loss of functional autonomy in activities of daily living (ADLs) acute October 26, 2024 5:14pm [facility] Work Phone: 1(922) 894-903004-21-[address] [address] HEALTH INFORMATION MANAGEMENT EMERGENCY DEPARTMENT : [id number] Signed Patient: JOHNATHAN GONZALEZ Acct:[id number] MRUN: [id number] : 1975 Sex: M Loc: ED AD M Date: 10/26/24 Room/Bed: DISC Date: History of Present Illness - General Chief complaint: Other Stated complaint: WANTS SNF PLACEMENT Symptom onset: TODAY HPI: PT TO [facility]IA [facility] FROM HOME WITH NO COMPLAINTS, STATING HE AND HIS SPOUSE WANT HIM TO HAVE AN EVAL FOR PLACEMENT IN [facility] R/T TOO DIFFICULT TO TAKE CARE OF HIM AT HOME. PT HAD CVA IN 2019 WITH LEFT SIDED WEAKNESS REMAINING. PT NON AMBULATORY, PT A&O X4, DENIES PAIN. [place] AND SPOUSE IS TAKING CARE OF HIM AND HER MOTHER AT THEIRHOME, PT STATES IT'S TOO MUCH FOR HER. 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 unable to take care of him. Hence in the emergency room to be placed back to the jail. Reports he called his jail and was told to come to the ER for the same. Has not called his PCP to help him with his placement. Has no other complaintsno new injury or fall. Denies any pain. Denies any travelling history/sick contacts/recent use of antibiotics/Covid exposure. No cough/congestion/fever/chills/rash. No blood in stool/vomitus or urine. NO LOC/Dizziness/Syncope. No headache/neck pain/dyspnea/chest pain or abdominal pain. No speech or vision problems. No new or worsening unilateral weakness inface or extremities Time Seen by Provider: 10/26/24 11:26 Mode of Transport: [facility] - Related Data Home Medications Medication Instructions Recorded Confirmed Acetaminophen [Aphen] 650 mg PO Q4H PRN 02/08/22 06/25/23 Levetiracetam [Keppra] 500 mg PO BID 02/08/22 06/25/23 Melatonin 5 mg PO QHS 02/08/22 06/25/23 Menthol [Biofreeze] 1 applic TP BID 02/08/22 06/25/23 Rivastigmine Tartrate 6 mg PO BID 02/08/22 06/25/23 [Rivastigmine] Finasteride [Proscar 5 mg Tablet] 5 mg PO DAILY tablet 02/16/22 06/25/23 Tamsulosin HCl [Flomax] 0.4 mg PO DAILY 30 Days #30 capsule 02/16/22 06/25/23 Albuterol Sulfate [Albuterol 8.5 gm IH Q4H PRN 02/10/23 06/25/23 Sulfate Hfa] Duloxetine HCl [Cymbalta] 60 mg PO DAILY 02/10/23 06/25/23 Medroxyprogesterone Acetate 10 mg PO BID 02/10/23 06/25/23 [Provera] Polyethylene Glycol 3350 [Miralax 1 packet PO DAILY PRN 02/10/23 06/25/23 Packet 17 gm] Zofran 4 mg Odt 4 cap PO .PER.INSTRUCTIONS PRN 02/10/23 06/25/23 Aspirin [Adult Low Dose Aspirin EC] 81 mg PO DAILY 06/22/23 06/25/23 Baclofen 5 mg PO BID 06/22/23 06/25/23 Benzocaine/Menthol/Zinc Chlor 1 applic PO QID PRN 06/22/23 06/25/23 [Orajel 3X Mouth Sores Gel] Hydrocortisone [Hydrocortisone 1% 1 applic TP QID PRN 06/22/23 06/25/23 Ointment] Nitroglycerin [Nitrostat] See Rx Instructions .ROUTE 06/22/23 06/25/23 .COMPLEX PRN Amlodipine Besylate [Norvasc 5 mg 5 mg PO DAILY tablet 06/24/23 06/25/23 Tablet] Atorvastatin Calcium [Lipitor 40 40 mg PO QHS tablet 06/24/23 06/25/23 mg Tablet] Magnesium Hydroxide [Milk of 30 ml PO DAILY #0 06/27/23 06/25/23 Magnesia] Pantoprazole Sodium 40 mg PO DAILY #30 06/27/23 Allergies Allergy/AdvReac Type Severity Reaction Status Date / Time No Known Allergies Allergy Verified 04/26/19 04:44 Review of System - Constitutional Constitutional: Present: see HPI, Well developed, Well nourished, Non-toxic. Absent: diaphoresis, fever, Lethargic - Nose,Throat,Mouth Nose (ROS): Present: no symptoms reported. Absent: pain Throat: Present: no symptoms reported. Absent: pain, swelling, discharge Mouth: Present: no symptoms reported. Absent: pain, swelling - Respiratory Respiratory: Present: no symptoms reported. Absent: cough, short of breath, wheezing - CV Cardiology: Present: no symptoms reported. Absent: chest pain, edema - GI Gastrointestinal/Abdominal: Present: no symptoms reported. Absent: abdominal pain, diarrhea, nausea, vomiting - Genitourinary Symptoms: Present: no symptoms reported. 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 Absent: headache, weakness - Muskuloskeletal Musculoskeletal: Absent: back pain, joint pain, joint swelling - Integumentary Skin: Absent: lesions, rash - Allergic/Immunologic Immunological/Allergic: Present: no symptoms reported - Hematologic Hematologic/Lymphatic: Absent: easy bleeding, easy bruising, swollen glands - Endocrine Endocrine: Present: no symptoms reported - Psychiatric Psychiatric: Present: Normal Affect, Normal Mood. Absent: Depressed - All Others/Exceptions All Other Systems: Reviewed and Negative Except Where Noted in Documentation ED PMH/Social HX/Family HX - Respiratory Hx Respiratory Disorders: No - Cardiovascular Hx Cardiac Disorders: Yes PMH--Cardiovascular: HTN - Neurological Hx Neurological Disorder: Yes PMH--Neurological: CVA, Headaches Other Neuro PMH: LEFT SIDE WEAKNESS PSH-Neurological: Neurological Surgery - Endocrine Hx Endocrine Disorders: No - Gastrointestinal Hx Gastrointestinal Disorders: No PMH--Gastrointestinal: GERD - Genitourinary Hx Genitourinary Disorders: No - Musculoskeletal Hx Musculoskeletal Disorders: Yes Other MS PMH: back pain - Reproductive Hx Reproductive Disorders: No - Psychological Hx Psychosocial Problems: No PMH--Psychological & Treatments: Anxiety, Depression Other Psychological PMH: EXPLOSIVE DISORDER, BEHAVIORS - HEENT Hx Ear, Nose Throat Disorders: No - Cancer Hx Cancer: No - Other Other PMH: Chicken Pox - Social History Highest Educational Level: High School Able to Read: Yes Able to Write: Yes Smoking Status: Never Smoked Hx Chewing Tobacco Use: Yes Cans/Bags Per Day Chewed [ED.CHEW]: 1 Alcohol Use: Rarely Any recreational drug use reported?: No Feels Threatened In Home Environment: No Feels Threatened In a Relationship: No - Family PMH No Significant Family History Ethnicity: Pt declinded to provide - [place]/Gender ID What is your current Gender Identity? Choose all that Apply: Male Define your Sexual Orientation?: Straight/Heterosexual - [place]-Suicide Severity Rating Scale 1) Wish to be :: No 2) Suicidal Thoughts:: No 6) Suicidal Behavior Question (A): LIFETIME: No 6) Suicidal Behavior Question (B): PAST 3 MONTHS: No General Exam Sepsis focused exam performed?: Yes - General Limitations: Complains of: no limitations Constitutional: Present: see HPI, Well developed, Well nourished, well hydrated, Non-toxic. Absent:chills, diaphoresis, fever, malaise, weakness, Lethargic - Head Head exam: Present: atraumatic, normocephalic, normal inspection - Eye Eye exam: Present: normal apperance, normal accomodation, EOMI Pupils: Present: PERRL - ENT ENT exam: Present: normal orophraynx, mucous membranes moist, TMs clear w/ good light reflex, normal external ear exam, No Nasal Discharge, Posterior Pharynx Non-erethemetous - Expanded ENT Exam Ear exam: Present: normal external inspection Mouth exam: Present: normal external inspection Teeth exam: Present: normal inspection Throat exam: normal inspection - Neck Neck exam: Present: full ROM, Supple. Absent: tenderness, meningismus, Posterior Lymphadenopathy, Anterior Lymphadenopathy, anterior neck swelling - Respiratory Respiratory exam: Present: lungs clear and equal bilaterally. Absent: respiratory distress, wheezes, rales, rhonchi, stridor, accessory muscle use, Nasal Flaring - Cardiovascular Cardiovascular Exam: Present: regular rate, normal rhythm, normal heart sounds. Absent: murmur, rubs, gallop, clicks - GI/Abdominal GI/Abdominal exam: Present: soft, non tender, normal bowel sounds. Absent: guarding, rebound, rigid, mass, bruit, tenderness - Extremities Exam Extremities exam: Present: normal inspection, neurovascularly intact, full ROM, normal/equal pulses, other ( CHRONIC LEFT HEMIPLEGIA FROM PRIOR CVA). Absent: tenderness - Back Exam Back exam: Present: normal inspection, full ROM. Absent: tenderness - Neurological Exam Neurological exam: Present: alert, oriented X3, CN II-XII intact, other ( CHRONIC LEFT HEMIPLEGIA FROM PRIOR CVA. NO NEW OR WORSENING ACUTE NEUROVASCULAR DEFICITS NOTED) - Expanded Neurological Exam Patient oriented to: Present: person, place, time Speech: Present: fluid speech - Psychiatric Psychiatric exam: Present: normal affect, normal mood - Skin Skin Color: Present: Normal, [place] Skin exam: Present: warm, dry - Expanded Skin Exam Type of lesion: Absent: rash - Vital Signs Vital Signs 10/26/24 10/26/24 10/26/24 11:27 11:42 12:00 Temperature 98.1 F Pulse Rate 88 Pulse Rate [ 83 Right VS Machine] Respiratory 16 Rate Blood Pressure 114/88 Blood Pressure 120/87 [Right Arm] O2 Sat by Pulse 95 97 Oximetry(%) 10/26/24 10/26/24 10/26/24 13:01 13:31 15:48 Temperature Pulse Rate Pulse Rate [ Right VS Machine] Respiratory Rate Blood Pressure 134/84 119/90 129/85 Blood Pressure [Right Arm] O2 Sat by Pulse Oximetry(%) Medical Desicion Making - Lab Data Result diagrams: 10/26/24 12:10 10/26/24 12:10 Lab Results 10/26/24 10/26/24 10/26/24 Range/Units 12:10 12:10 13:53 WBC 8.8 (3.6-10.8) K/uL RBC 4.88 (4.13-5.69) M/uL Hgb 13.5 (12.4-17.3) g/dL Hct 40.0 (36.7-50.6) % MCV 82.0 (80.0-94.0) fL MCH 27.7 (27.0-31.0) pg MCHC 33.8 (33.0-37.0) g/dL RDW 13.5 (11.5-14.5) % Plt Count 200 (148-402) K/uL MPV 8.6 (7.4-10.4) fL Neut % (Auto) 77.4 H (43.0-65.0) % Lymph % (Auto) 14.4 L (17.0-45.5) % [place] % (Auto) 5.7 (5.5-11.7) % Eos % (Auto) 2.1 (0.9-2.9) % Baso % (Auto) 0.3 (0.2-1.0) % Abs Immat Gran (man) 0.01 (0.00-0.10) K/uL Absolute Neuts (auto) 6.78 H (2.20-4.80) K/uL Absolute Lymphs (auto) 1.30 (1.30-2.90) K/uL Absolute Monos (auto) 0.50 (0.30-0.80) K/uL Absolute Eos (auto) 0.20 (0.00-0.20) K/uL Absolute Basos (auto) 0.03 (0.00-0.10) K/uL Immature Gran % 0.10 (0.00-1.00) % Sodium 140 (132-145) mmol/L Potassium 3.2 L (3.3-5.1) mmol/L Chloride 108 (94-110) mmol/L Total Carbon Dioxide 27 (21-34) mmol/L Anion Gap 8.2 (8.0-16.0) mmol/L BUN 12.4 (3.2-26.9) mg/dL Creatinine 1.00 (0.50-1.17) mg/dL Est GFR (MDRD) Af Amer > 60 (>60) Est GFR (MDRD) Non-Af > 60 (>60) BUN/Creatinine Ratio 12 (6-20) Glucose 122 H (65-100) mg/dL Calcium 8.6 (8.2-10.0) mg/dL Total Bilirubin 0.44 (0.00-0.99) mg/dL AST 13 (3-39) U/L ALT 20 (13-66) U/L Alkaline Phosphatase 116 H (54-112) U/L Troponin I High Sens 6 6 (0-76) ng/L Troponin I Hi Sens Del 0 % Troponin I Hi Sens Abs Chng 0 ng/L Total Protein 6.2 (6.1-8.2) g/dL Albumin 2.5 L (3.4-5.0) g/dL Globulin 3.7 (1.5-4.5) g/dL Albumin/Globulin Ratio 0.7 L (1.1-2.5) Urine Color (Yellow) Urine Appearance (Clear) Urine pH Ur Specific [place] (1.015-1.025) Urine Protein (Negative) Urine Ketones (Negative) Urine Blood (Negative) Urine Nitrite (Negative) Urine Bilirubin (Negative) Urine Ictotest (Negative) Urine Urobilinogen (Normal-1.0) mg/dL Ur Leukocyte Esterase (Negative) Urine RBC (0 - 2) /hpf Urine WBC (0 - 6) /hpf Ur Epithelial Cells (0 - 6) /lpf Urine Bacteria (0 - 1+) /hpf Urine Mucus /lpf Urine Glucose (Negative) 10/26/24 10/26/24 10/26/24 Range/Units 15:48 15:51 15:51 WBC (3.6-10.8) K/uL RBC (4.13-5.69) M/uL Hgb (12.4-17.3) g/dL Hct (36.7-50.6) % MCV (80.0-94.0) fL MCH (27.0-31.0) pg MCHC (33.0-37.0) g/dL RDW (11.5-14.5) % Plt Count (148-402) K/uL MPV (7.4-10.4) fL Neut % (Auto) (43.0-65.0) % Lymph % (Auto) (17.0-45.5) % [place] % (Auto) (5.5-11.7) % Eos % (Auto) (0.9-2.9) % Baso % (Auto) (0.2-1.0) % Abs Immat Gran (man) (0.00-0.10) K/uL Absolute Neuts (auto) (2.20-4.80) K/uL Absolute Lymphs (auto) (1.30-2.90) K/uL Absolute Monos (auto) (0.30-0.80) K/uL Absolute Eos (auto) (0.00-0.20) K/uL Absolute Basos (auto) (0.00-0.10) K/uL Immature Gran % (0.00-1.00) % Sodium (132-145) mmol/L Potassium (3.3-5.1) mmol/L Chloride (94-110) mmol/L Total Carbon Dioxide (21-34) mmol/L Anion Gap (8.0-16.0) mmol/L BUN (3.2-26.9) mg/dL Creatinine (0.50-1.17) mg/dL Est GFR (MDRD) Af Amer (>60) Est GFR (MDRD) Non-Af (>60) BUN/Creatinine Ratio (6-20) Glucose (65-100) mg/dL Calcium (8.2-10.0) mg/dL Total Bilirubin (0.00-0.99) mg/dL AST (3-39) U/L ALT (13-66) U/L Alkaline Phosphatase (54-112) U/L Troponin I High Sens (0-76) ng/L Troponin I Hi Sens Del % Troponin I Hi Sens Abs Chng ng/L Total Protein (6.1-8.2) g/dL Albumin (3.4-5.0) g/dL Globulin (1.5-4.5) g/dL Albumin/Globulin Ratio (1.1-2.5) Urine Color brown (Yellow) Urine Appearance Clear (Clear) Urine pH 5 Ur Specific [place] 1.025 (1.015-1.025) Urine Protein 15 A (Negative) Urine Ketones Negative (Negative) Urine Blood Negative (Negative) Urine Nitrite Negative (Negative) Urine Bilirubin 1 A (Negative) Urine Ictotest Negative (Negative) Urine Urobilinogen Normal (Normal-1.0) mg/dL Ur Leukocyte Esterase Trace A (Negative) Urine RBC 0-2 (0 - 2) /hpf Urine WBC 2-5 (0 - 6) /hpf Ur Epithelial Cells 0-2 (0 - 6) /lpf Urine Bacteria 2+ (0 - 1+) /hpf Urine Mucus 3+ /lpf Urine Glucose Normal (Negative) Orders: Medications Discontinued Medications Potassium Bicarbonate (Potassium Bicarb/Cit 25 Meq Eff Tablet) 25 meq PO STAT STA Stop: 10/26/24 12:46 Last Admin: 10/26/24 13:29 Dose: 25 meq Documented by: [email or web address] Labs 10/26/24 11:34 Resuscitation Status Order Routine 10/26/24 11:53 12-Lead per nursing [RC] STAT ED-IV [RC] ONE CHEST AP [DIAG] Stat EKG [CAR] Stat Telemetry [RC] ONE 10/26/24 12:10 CBC w/Auto Differential [HEM] Stat Comprehensive Metabolic Panel [CHM] Stat High Sensitivity Troponin I* [CHM] Stat 10/26/24 12:45 Potassium Bicarbonate/Cit AC [K-Lyte 25 Meq Effervescent Tablet] 25 meq PO STAT STA 10/26/24 13:53 High Sensitivity Troponin I* [CHM] Routine 10/26/24 15:51 Bilirubin Confirmation [URN] Stat UA w/micrscopic-reflex culture [URN] Stat 10/26/24 16:06 Culture Urine [MIC2] Stat - Radiology Data Radiology Report: Radiology report reviewed,see report for findings IMPRESSIONS Chest X-Ray 10/26/24 11:53 IMPRESSION: No acute cardiopulmonary process. Electrocardiogram 10/26/24 11:53 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 EKG showed normal sinus rhythm. Heart rate of 83.No findings of STEMI. Labs unremarkable, chest x-ray unremarkable. We did consult case management in the said patient needs to be admitted for three day hospital stay for him to go back [facility] the jail. Patient unableto take care of himself. His is unable to care for himself we will admit him for failure to thrive and for case management to send him to the jail from where he was discharged approximately a month ago. He has chronic hemiplegia on the left side from prior stroke. Patient otherwise asymptomatic. Vital signs are stable. Denies any pain. No new or worsening unilateral weakness in face or extremities noted. No acute neurovascular deficits noted. He is afebrile, appears nontoxic. Vitalsigns are stable. Potassium OF 3.2 4:50 pm Patient agrees with admission to [facility] and [facility] and he states understanding of the same case discussed with the admitting hospitalist who will admit the patient and also agrees with management and plan ED Discharge Summary - Discharge Data Clinical Impression: Chronic left hemiplegia, Adult failure to thrive Condition: Fair Disposition: ADMITTED INPATIENT Referrals: ROMIE SAHU MD [Primary Care Provider] - Home Medications: Ambulatory Orders Medication Instructions Recorded Acetaminophen [Aphen] 650 mg PO Q4H PRN 02/08/22 Levetiracetam [Keppra] 500 mg PO BID 02/08/22 Melatonin 5 mg PO QHS 02/08/22 Menthol [Biofreeze] 1 applic TP BID 02/08/22 Rivastigmine Tartrate 6 mg PO BID 02/08/22 [Rivastigmine] Finasteride [Proscar 5 mg Tablet] 5 mg PO DAILY tablet 02/16/22 Tamsulosin HCl [Flomax] 0.4 mg PO DAILY 30 Days #30 capsule 02/16/22 Albuterol Sulfate [Albuterol 8.5 gm IH Q4H PRN 02/10/23 Sulfate Hfa] Duloxetine HCl [Cymbalta] 60 mg PO DAILY 02/10/23 Medroxyprogesterone Acetate 10 mg PO BID 02/10/23 [Provera] Polyethylene Glycol 3350 [Miralax 1 packet PO DAILY PRN 02/10/23 Packet 17 gm] Zofran 4 mg Odt 4 cap PO .PER.INSTRUCTIONS PRN 02/10/23 Aspirin [Adult Low Dose Aspirin EC] 81 mg PO DAILY 06/22/23 Baclofen 5 mg PO BID 06/22/23 Benzocaine/Menthol/Zinc Chlor 1 applic PO QID PRN 06/22/23 [Orajel 3X Mouth Sores Gel] Hydrocortisone [Hydrocortisone 1% 1 applic TP QID PRN 06/22/23 Ointment] Nitroglycerin [Nitrostat] See Rx Instructions .ROUTE 06/22/23 .COMPLEX PRN Amlodipine Besylate [Norvasc 5 mg 5 mg PO DAILY tablet 06/24/23 Tablet] Atorvastatin Calcium [Lipitor 40 40 mg PO QHS tablet 06/24/23 mg Tablet] Magnesium Hydroxide [Milk of 30 ml PO DAILY #0 06/27/23 Magnesia] Pantoprazole Sodium 40 mg PO DAILY #30 06/27/23 Time Seen by Provider: 10/26/24 11:26 Electronically Generated By:LILA HEWITT MD Generated Date/Time: 10/26/24 1210 Electronically Signed By: 10/26/24 0154 Co Signed Electronically By: Co Signed Date/Time: CC: ROMIE SAHU MD [facility]04-21-2025 Radiology Diagnostic study note [facility] [address] [place] [address] DIAGNOSTIC RADIOLOGY REPORT: [id number], Signed. 2 Patient: JOHNATHAN GONZALEZ : 1975, age 49 MR#: [id number] Acct: [id number] - EXAMINATION: ONE XRAY VIEW OF THE CHEST 10/26/2024 12:52 pm COMPARISON: 06/25/2023 HISTORY: ORDERING SYSTEM PROVIDED HISTORY: weakness FINDINGS: Heart size is normal. There are no infiltrates or effusions. There is minimal scarring in left lower lobe. There is mild tortuosity of the aorta. DIAG/CHEST AP IMPRESSION: No acute cardiopulmonary process. Electronically Signed by: LILIYA BHARDWAJ MD Signed date/time: 10/26/24 3493 CC: ROMIE SAHU MD; LILA HEWITT MD [facility] Work Phone: [phone] 321-562704-17-2025 Emergency department Note* Danae Yun LPN - 10/22/2024 8:10 PM EDT [facility] leaves with this pt on this time on stretcher. [facility]04-17-2025 Emergency department Note* Danae Yun LPN - 10/22/2024 8:10 PM EDT [facility] leaves with this pt on this time on stretcher. * Danae Yun LPN - 10/22/2024 8:06 PM EDT [facility] crew given report on this pt at this time. * Danae Yun LPN - 10/22/2024 6:00 PM EDT Pt aware of 1999 for [facility] to transport back home. Warm blankets requested and this nurse provided x2. Call light with in reach. * Danae Yun LPN - 10/22/2024 5:19 PM EDT [facility] ETA 2000 per jose r to transport back to residence. * Ana Maria Silva APRN PHYSICAL THERAPY DIRECTOR - 10/22/2024 4:39 PM EDT Images from the original note were not included. ED Diagnosis 1. Corneal abrasion, right, initial encounter ED Summary 49-year-old male presents emergency department with eye problem. Patient has noted to have a corneal abrasion as well as conjunctival injection. It is unclear if he perhaps started with conjunctivitis and then caused a corneal abrasion from rubbing the eye or if he had a corneal abrasion initially that is now caused some discharge. Regardless no foreign body is noted. He was offered pain medication in ED which she declines. He is given a tetanus vaccine given the abrasion. He is provided with erythromycin ointment and encouraged to continue using this at home. He is advised of the importance of following up with ophthalmology and was given a referral for same. He is to return to the emergency department sooner with any new or worsening symptoms. Differential diagnosis (not exhaustive): Foreign body of eye IV antibiotics considered but deemed not neccessary at this time due to no sepsis or need for hospitalization at this time. Chart reviewed with pertinent information including: immunization record does not show tetanus vaccine Follow-up with PCP for chronic conditions 10/13/24 This plan, including discharge medications, was discussed with patient and/or family, questions were answered, the patient and or parent(s) appear to understand and agree with plan for discharge. The above report was generated using voice recognition software. It may contain grammatical, syntaxand spelling errors. No orders to display Labs Reviewed - No data to display History Chief Complaint Patient presents with Eye Problem Patient's medications, allergies, past medical, surgical, social and family histories were reviewedand updated as appropriate. 49 yo well-appearing male in no apparent distress presents to the emergency department accompanied by female administrative appeals tribunal member also for his history of chief complaint of eye problem. Patient reports he developed eye irritation several days ago. He does not know if he awoke with this or if it started duringthe day. He does not recall any injury to the area. He denies purulent discharge. He does report itching and is noted to be scratching the eye frequently during examination. He does report that lightmakes his eyes hurt more. He has attempted to use Visine. He is not been ill recently with cough orcongestion. He denies double or blurred vision. Review of Systems Constitutional: Negative for fever. Vitals: 10/22/24 1554 BP: (!) 137/94 Pulse: Resp: Temp: SpO2: Physical Exam Physical Exam Vitals and nursing note reviewed. Constitutional: General: He is not in acute distress. Appearance: He is well-developed. He is not diaphoretic. HENT: Head: Normocephalic and atraumatic. Right Ear: External ear normal. Left Ear: External ear normal. Nose: Nose normal. Mouth/Throat: Mouth: Mucous membranes are moist. Pharynx: No oropharyngeal exudate. Eyes: General: Lids are normal. Lids are everted, no foreign bodies appreciated. Right eye: No foreign body, discharge or hordeolum. Extraocular Movements: Extraocular movements intact. Conjunctiva/sclera: Right eye: Right conjunctiva is injected. Exudate present. No chemosis or hemorrhage. Pupils: Pupils are equal, round, and reactive to light. Right eye: Corneal abrasion and fluorescein uptake present. Funduscopic exam: Right eye: Red reflex present. Cardiovascular: Rate and Rhythm: Normal rate and regular rhythm. Pulmonary: Effort: Pulmonary effort is normal. Musculoskeletal: Cervical back: Normal range of motion and neck supple. Lymphadenopathy: Cervical: No cervical adenopathy. Skin: General: Skin is warm and dry. Capillary Refill: Capillary refill takes less than 2 seconds. Neurological: Mental Status: He is alert and oriented to person, place, and time. Psychiatric: Mood and Affect: Mood normal. Behavior: Behavior normal. Thought Content: Thought content normal. ED Course Procedures Medical Decision Making Note to patient: The Century Cures Act makes medical notes like these available to patients inthe interest of transparency. However, be advised this is a medical document. It is intended as peer to peer communication. It is written in medical language and may contain abbreviations or verbiagethat are unfamiliar. It may appear blunt or direct. Medical documents are intended to carry relevant information, facts as evident, and the clinical opinion of the practitioner. Ana Maria Silva APRN CNP 10/22/24 1652 * Sahara Gallardo, RN - 10/22/2024 3:38 PM EDT Pt arrives via EMS for complain of eye itching for about 4 days EMS reporting pt is bed bound and non-ambulatory from a previous stroke. GCS 15. Respirations are easy and unlabored. No acute distress noted. documented in this [facility]04-17-2025 Emergency department Note* Danae Yun LPN - 10/22/2024 8:06 PM EDT [facility] crew given report on this pt at this time. [facility]04-17-2025 Emergency department Note* Danae Yun LPN - 10/22/2024 6:00 PM EDT Pt aware of ETA of 1999 for [facility] to transport back home. Warm blankets requested and this nurse provided x2. Call light with in reach. [facility]04-17-2025 Emergency department Note* Danae Yun LPN - 10/22/2024 5:19 PM EDT [facility] ETA 1999 per jose r to transport back to residence. [facility]04-17-2025 Physician Emergency department Note* Ana Maria Silva APRN CNP - 10/22/2024 4:39 PM EDT Images from the original note were not included. ED Diagnosis 1. Corneal abrasion, right, initial encounter ED Summary 49-year-old male presents emergency department with eye problem. Patient has noted to have a corneal abrasion as well as conjunctival injection. It is unclear if he perhaps started with conjunctivitis and then caused a corneal abrasion from rubbing the eye or if he had a corneal abrasion initially that is now caused some discharge. Regardless no foreign body is noted. He was offered pain medication in ED which she declines. He is given a tetanus vaccine given the abrasion. He is provided with erythromycin ointment and encouraged to continue using this at home. He is advised of the importance of following up with ophthalmology and was given a referral for same. He is to return to the emergency department sooner with any new or worsening symptoms. Differential diagnosis (not exhaustive): Foreign body of eye IV antibiotics considered but deemed not neccessary at this time due to no sepsis or need for hospitalization at this time. Chart reviewed with pertinent information including: immunization record does not show tetanus vaccine Follow-up with PCP for chronic conditions 10/13/24 This plan, including discharge medications, was discussed with patient and/or family, questions were answered, the patient and or parent(s) appear to understand and agree with plan for discharge. The above report was generated using voice recognition software. It may contain grammatical, syntaxand spelling errors. No orders to display Labs Reviewed - No data to display History Chief Complaint Patient presents with Eye Problem Patient's medications, allergies, past medical, surgical, social and family histories were reviewedand updated as appropriate. 49 yo well-appearing male in no apparent distress presents to the emergency department accompanied by female administrative appeals tribunal member also for his history of chief complaint of eye problem. Patient reports he developed eye irritation several days ago. He does not know if he awoke with this or if it started duringthe day. He does not recall any injury to the area. He denies purulent discharge. He does report itching and is noted to be scratching the eye frequently during examination. He does report that lightmakes his eyes hurt more. He has attempted to use Visine. He is not been ill recently with cough orcongestion. He denies double or blurred vision. Review of Systems Constitutional: Negative for fever. Vitals: 10/22/24 1554 BP: (!) 137/94 Pulse: Resp: Temp: SpO2: Physical Exam Physical Exam Vitals and nursing note reviewed. Constitutional: General: He is not in acute distress. Appearance: He is well-developed. He is not diaphoretic. HENT: Head: Normocephalic and atraumatic. Right Ear: External ear normal. Left Ear: External ear normal. Nose: Nose normal. Mouth/Throat: Mouth: Mucous membranes are moist. Pharynx: No oropharyngeal exudate. Eyes: General: Lids are normal. Lids are everted, no foreign bodies appreciated. Right eye: No foreign body, discharge or hordeolum. Extraocular Movements: Extraocular movements intact. Conjunctiva/sclera: Right eye: Right conjunctiva is injected. Exudate present. No chemosis or hemorrhage. Pupils: Pupils are equal, round, and reactive to light. Right eye: Corneal abrasion and fluorescein uptake present. Funduscopic exam: Right eye: Red reflex present. Cardiovascular: Rate and Rhythm: Normal rate and regular rhythm. Pulmonary: Effort: Pulmonary effort is normal. Musculoskeletal: Cervical back: Normal range of motion and neck supple. Lymphadenopathy: Cervical: No cervical adenopathy. Skin: General: Skin is warm and dry. Capillary Refill: Capillary refill takes less than 2 seconds. Neurological: Mental Status: He is alert and oriented to person, place, and time. Psychiatric: Mood and Affect: Mood normal. Behavior: Behavior normal. Thought Content: Thought content normal. ED Course Procedures Medical Decision Making Note to patient: The Cures Act makes medical notes like these available to patients inthe interest of transparency. However, be advised this is a medical document. It is intended as peer to peer communication. It is written in medical language and may contain abbreviations or verbiagethat are unfamiliar. It may appear blunt or direct. Medical documents are intended to carry relevant information, facts as evident, and the clinical opinion of the practitioner. Ana Maria Silva APRN CNP 10/22/24 2021 [facility]04-17-2025 Emergency department Triage note* Sahara Gallardo RN - 10/22/2024 3:38 PM EDT Pt arrives via EMS for complain of eye itching for about 4 days EMS reporting pt is bed bound and non-ambulatory from a previous stroke. GCS 15. Respirations are easy and unlabored. No acute distress noted. [facility]03-28-2025 Emergency department Note* Adalid Schulte RN - 10/02/2024 8:33 PM EDT [facility] arrived to transport patient to home residence at this time. Pt is alert and oriented, RR are e.e, Skin PWD. NO ADS noted upon departure. [facility]03-28-2025 Emergency department Note* Adalid Schulte RN - 10/02/2024 8:33 PM EDT [facility] arrived to transport patient to home residence at this time. Pt is alert and oriented, RR are e.e, Skin PWD. NO ADS noted upon departure. * Adalid Schulte RN - 10/02/2024 7:43 PM EDT Patient called out for brief change. Patient brief and bedding changed at this time. * Marci Rodriguez RN - 10/02/2024 7:18 PM EDT Report to Adalid * Marci Rodriguez RN - 10/02/2024 6:53 PM EDT Discharge, follow up, referral, and prescription information reviewed and explained; all questions and concerns addressed. Patient A/Ox3 in NAD, resp. easy unlabored upon discharge. IV removed without issue, bleeding controlled and bandage applied. Transportation verified with [facility]. ETA for turkey picker is 2029 * Marci Rodriguez RN - 10/02/2024 6:45 PM EDT [facility] ETA 2029 * Marci Rodriguez RN - 10/02/2024 6:40 PM EDT Pt requested transportation home. Will call [facility]. * Jenni Campbell MD - 10/02/2024 6:39 PM EDT ED Diagnosis and Summary 1. Shortness of breath ED Summary Case discussed with the examining ED BERYL who advises of no concerning exam findings. EKG shows sinus tachycardia at a rate of 104. CXR is normal. Screening blood work, including a normal d-dimer and undetectable troponin, is unremarkable. No emergency medical condition is evident. Feel safe for disc harge. Johnathan Gonzalez 49 y.o. male, history of CVA with left-sided paralysis, presents with 2 months of shortness of breath. He reports he feels like he can't take a full breath with his left lung. Nothingnew today, symptoms chronic for months, just decided to come in by EMS today to get checked for no particularly acute reason. I did not personally examine this patient but did review the chart and participated in the medical decision making with the ED BERYL. I have reviewed all pertinent clinical information, including the patient's medical and surgical history, medications, allergies, and the ED BERYL's physical exam findings. The Medical Decision Making section at the end of this document is the result of this process and reflects my plan of care and disposition. History Chief Complaint Patient presents with Shortness of Breath Patient's medications, allergies, past medical, surgical, social and family histories were reviewedand updated as appropriate. Past Medical History: Diagnosis Date CVA (cerebral vascular accident) (HCC) HTN (hypertension) History reviewed. No pertinent surgical history. No family history on file. Social History Socioeconomic History Marital status: Legally Tobacco Use Smoking status: Never Smokeless tobacco: Never Vaping Use Vaping status: Never Used Substance and Sexual Activity Alcohol use: Never Drug use: Never Sexual activity: Not Currently No current facility-administered medications for this encounter. Current Outpatient Medications Medication Sig Dispense Refill cimetidine (TAGAMET) 400 MG tablet Take 400 mg by mouth two times a day. divalproex DR (DEPAKOTE) 125 MG EC tablet Take 125 mg by mouth two times per day. [address] (DEPAKOTE) 500 MG EC tablet Take 500 mg by mouth daily. DULoxetine (CYMBALTA) 60 MG capsule Take 60 mg by mouth daily. famotidine (PEPCID) 20 MG tablet Take 1 tablet by mouth two times a day. finasteride (PROSCAR) 5 MG tablet Take 5 mg by mouth daily. levETIRAcetam (KEPPRA) 500 MG tablet Take 500 mg by mouth two times a day. loratadine (CLARITIN) 10 MG tablet Take 1 tablet by mouth daily. 30 tablet 0 ondansetron (ZOFRAN) 4 MG tablet Take 1 tablet by mouth every 8 hours as needed for Nausea and/or Vomiting. sulfamethoxazole-trimethoprim (BACTRIM DS) 800-160 MG per tablet Take 1 tablet by mouth two times aday. Tamsulosin HCl (TAMSULOSIN) 0.4 MG 24 hr capsule Take 0.4 mg by mouth daily. No Known Allergies The history is provided by medical records. Review of Systems Physical Exam ED Triage Vitals [10/02/24 1653] BP (!) 149/99 Heart Rate 104 Resp 20 Temp 98 F (36.7 C) Temp src Oral SpO2 97 % Weight 200 lb (90.7 kg) Height 5' 7 (1.702 m) BMI (Calculated) 31.32 Physical Exam ED Course Procedures Medical Decision Making Case discussed with the examining ED BERYL who advises of no concerning exam findings. EKG shows sinus tachycardia at a rate of 104. CXR is normal. Screening blood work, including a normal d-dimer and undetectable troponin, is unremarkable. No emergency medical condition is evident. Feel safe for disc harge. Problems Addressed: Shortness of breath: chronic illness or injury Amount and/or Complexity of Data Reviewed Labs: ordered. Decision-making details documented in ED Course. Radiology: ordered. Decision-making details documented in ED Course. ECG/medicine tests: ordered and independent interpretation performed. Decision- making details documented in ED Course. Jenni Campbell MD 10/02/24 1843 * Sahara Gallardo RN - 10/02/2024 4:51 PM EDT Pt arrives via EMS for complain of shortness of breath and feeling like he cannot get a full breath. Pt denies any chest pain. EMS reporting patient has been having difficulty getting a deep breath for a couple weeks. 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 GCS 15. Respirations are easy and unlabored. No acute distress noted. * Sahara Gallardo RN - 10/02/2024 4:50 PM EDT Bed: 08 [facility] Expected date: Expected time: Means of arrival: Comments: [facility]* Adalid Schulte RN - 10/02/2024 7:43 PM EDT Patient called out for brief change. Patient brief and bedding changed at this time. [facility]03-28-2025 Emergency department Note* Marci Rodriguez RN - 10/02/2024 7:18 PM EDT Report to Adalid [facility]03-28-2025 Emergency department Note* Marci Rodriguez RN - 10/02/2024 6:53 PM EDT Discharge, follow up, referral, and prescription information reviewed and explained; all questions and concerns addressed. Patient A/Ox3 in NAD, resp. easy unlabored upon discharge. IV removed without issue, bleeding controlled and bandage applied. Transportation verified with [facility]. ETA for turkey picker is 2029 [facility]03-28-2025 Emergency department Note* Marci Rodriguez RN - 10/02/2024 6:45 PM EDT [facility] ETA 2029 [facility]03-28-2025 Emergency department Note* Marci Rodriguez RN - 10/02/2024 6:40 PM EDT Pt requested transportation home. Will call [facility]. [facility]03-28-2025 Physician Emergency department Note* Jenni Campbell MD - 10/02/2024 6:39 PM EDT ED Diagnosis and Summary 1. Shortness of breath ED Summary Case discussed with the examining ED BERYL who advises of no concerning exam findings. EKG shows sinus tachycardia at a rate of 104. CXR is normal. Screening blood work, including a normal d-dimer and undetectable troponin, is unremarkable. No emergency medical condition is evident. Feel safe for disc harge. Johnathan Phillipstes 49 y.o. male, history of CVA with left-sided paralysis, presents with 2 months of shortness of breath. He reports he feels like he can't take a full breath with his left lung. Nothingnew today, symptoms chronic for months, just decided to come in by EMS today to get checked for no particularly acute reason. I did not personally examine this patient but did review the chart and participated in the medical decision making with the ED BERYL. I have reviewed all pertinent clinical information, including the patient's medical and surgical history, medications, allergies, and the ED BERYL's physical exam findings. The Medical Decision Making section at the end of this document is the result of this process and reflects my plan of care and disposition. History Chief Complaint Patient presents with Shortness of Breath Patient's medications, allergies, past medical, surgical, social and family histories were reviewedand updated as appropriate. Past Medical History: Diagnosis Date CVA (cerebral vascular accident) (HCC) HTN (hypertension) History reviewed. No pertinent surgical history. No family history on file. Social History Socioeconomic History Marital status: Legally Tobacco Use Smoking status: Never Smokeless tobacco: Never Vaping Use Vaping status: Never Used Substance and Sexual Activity Alcohol use: Never Drug use: Never Sexual activity: Not Currently No current facility-administered medications for this encounter. Current Outpatient Medications Medication Sig Dispense Refill cimetidine (TAGAMET) 400 MG tablet Take 400 mg by mouth two times a day. divalproex DR (DEPAKOTE) 125 MG EC tablet Take 125 mg by mouth two times per day. [address] (DEPAKOTE) 500 MG EC tablet Take 500 mg by mouth daily. DULoxetine (CYMBALTA) 60 MG capsule Take 60 mg by mouth daily. famotidine (PEPCID) 20 MG tablet Take 1 tablet by mouth two times a day. finasteride (PROSCAR) 5 MG tablet Take 5 mg by mouth daily. levETIRAcetam (KEPPRA) 500 MG tablet Take 500 mg by mouth two times a day. loratadine (CLARITIN) 10 MG tablet Take 1 tablet by mouth daily. 30 tablet 0 ondansetron (ZOFRAN) 4 MG tablet Take 1 tablet by mouth every 8 hours as needed for Nausea and/or Vomiting. sulfamethoxazole-trimethoprim (BACTRIM DS) 800-160 MG per tablet Take 1 tablet by mouth two times aday. Tamsulosin HCl (TAMSULOSIN) 0.4 MG 24 hr capsule Take 0.4 mg by mouth daily. No Known Allergies The history is provided by medical records. Review of Systems Physical Exam ED Triage Vitals [10/02/24 1653] BP (!) 149/99 Heart Rate 104 Resp 20 Temp 98 F (36.7 C) Temp src Oral SpO2 97 % Weight 200 lb (90.7 kg) Height 5' 7 (1.702 m) BMI (Calculated) 31.32 Physical Exam ED Course Procedures Medical Decision Making Case discussed with the examining ED BERYL who advises of no concerning exam findings. EKG shows sinus tachycardia at a rate of 104. CXR is normal. Screening blood work, including a normal d-dimer and undetectable troponin, is unremarkable. No emergency medical condition is evident. Feel safe for disc harge. Problems Addressed: Shortness of breath: chronic illness or injury Amount and/or Complexity of Data Reviewed Labs: ordered. Decision-making details documented in ED Course. Radiology: ordered. Decision-making details documented in ED Course. ECG/medicine tests: ordered and independent interpretation performed. Decision- making details documented in ED Course. Jenni Campbell MD 10/02/241842 [facility] Work Phone: [phone]) 190-816603-28-2025 Emergency department Triage note* Sahara Gallardo RN - 10/02/2024 4:51 PM EDT Pt arrives via EMS for complain of shortness of breath and feeling like he cannot get a full breath. Pt denies any chest pain. EMS reporting patient has been having difficulty getting a deep breath for a couple weeks. 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 GCS 15. Respirations are easy and unlabored. No acute distress noted. [facility]03-28-2025 Emergency department Note* Sahara Gallardo RN - 10/02/2024 4:50 PM EDT Bed: 08 [facility] Expected date: Expected time: Means of arrival: Comments: Potential EMS [facility]04-24-2024 History of Present illness Narrative* Wilton Rankin MD - 10/30/2023 10:33 AM EDT Images from the original note were not included. Dear Dr. Burks, Physician Johnathan Gonzalez presents for a follow-up visit today. He presents 1 month after having undergone right-sided cranioplasty. He denies any significant headache. Denies any seizures. Overall, he states he is doing well. He has no complaints during today's visit. PHYSICAL EXAM Patient is awake, alert. Speech is fluent. Left hemiparesis noted on exam which is baseline. Full strength in right upper and right lower extremity. Right cranial incision appears to be healing well without evidence for infection or other complication. Previously noted subgaleal fluid collection has essentially resolved. DATA REVIEW CT of the brain from October 04 2023 performed at an outlying hospital reviewed- this shows a large subgaleal conduction which has essentially resolved on examination today. IMPRESSION Stable postoperative course PLAN: At this point, I will follow-up with Mr. Gonzalez on an as-needed basis as he is doing well from a neurosurgical standpoint. If I could be of further assistance, please feel free to contact me. Wilton Rankin MD, FAANS * Jenny Sahu RN - 10/30/2023 10:27 AM EDT Patient here for post op appt. Patient doing well. No headaches, no visual changes, no falls. Incision looks good. 09/26/23 Right cranioplasty documented in this [id number] Hospital course Narrative* Jerrica Hutchison PA-C - 10/02/2023 3:23 PM EDT DISCHARGE SUMMARY Patient: Johnathan Gonzalez Date of : 1975 Site: [facility] Family Provider: Kimmie Physician Admit Date: 09/26/2023 Discharge Date/Time: 10/02/23 3:23 PM Disposition: Linen Folder Care Clinical Summary Hospital Course: Johnathan Gonzalez is a 48 y.o. male patient of No, Physician On day of discharge, could eat and void. Pain was controlled with oral pain meds, was medically and neurosurgically stable and cleared for DC to [facility] care facility. Discharge Diagnoses: CVA/Skull Defect: Patient presented as an Admission day surgery patient and underwent the procedure(s) listed below. Postoperatively was admitted to the Neuroscience Critical Care Unit. On postop day#1 was alert and oriented X3. Worked to increase activity, advance diet and control pain with oral medication. Remained neurologically stable. Seizures: Per hx, continued home meds HTN: Per hx. Continued home norvasc Vascular Dementia: In setting of above. Continued home Rivastigmine, Rexulti, Provera Chronic Pain/Myositis: with history of LLE myositis and wheel chair bound at baseline in setting ofL hemiplegia. 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 Continued home diet([facility] soft w/thin liquids) Code status: full Surgeries: 09/26/23 RIGHT CRANIOPLASTY. *PERIOPERATIVE GLYCEMIC PROTOCOL* Consults: To the Neurocritical Care service Imaging: CT head: s/p right cranioplasty with expected post-op fluid, no post-op intracranial hemorrhage Allergies: Patient has no known allergies. Discharge Medications: Discharge Medications Modified Medications Details aspirin 81 MG EC tablet Start taking on: October 07, 2023 What changed: how much to take how to take this when to take this additional instructions These instructions start on October 07, 2023. If you are unsure what to do until then, ask your doctoror other care provider. OK to resume aspirin on 10/07/2023, resume as directed Start: 10/07/23. Quantity: 1 tablet Medications To Continue Details acetaminophen 325 MG tablet Commonly known as: TYLENOL Take 2 (two) tablets (650 mg total) by mouth every 4 (four) hours as needed for pain Reasons: pain. amLODIPine 5 MG tablet Commonly known as: NORVASC Take 1 (one) tablet (5 mg total) by mouth every morning . atorvastatin 40 MG tablet Commonly known as: LIPITOR Take 1 (one) tablet (40 mg total) by mouth at bedtime . baclofen 5 mg Tab Take 1 (one) tablet (5 mg total) by mouth 2 (two) times a day . DULoxetine 60 MG capsule Commonly known as: CYMBALTA Take 1 (one) capsule (60 mg total) by mouth at bedtime . finasteride 5 mg tablet Commonly known as: PROSCAR Take 1 (one) tablet (5 mg total) by mouth daily . levETIRAcetam 500 MG tablet Commonly known as: KEPPRA Take 1 (one) tablet (500 mg total) by mouth 2 (two) times a day . medroxyPROGESTERone 10 MG tablet Commonly known as: PROVERA Take 1 (one) tablet (10 mg total) by mouth 2 (two) times a day . melatonin 3 mg Tab Take 2 (two) tablets (6 mg total) by mouth nightly . ondansetron 4 MG disintegrating tablet Commonly known as: ZOFRAN-ODT Dissolve 1 (one) tablet (4 mg total) on top of tongue every 6 (six) hours as needed . Quantity: 20 tablet pantoprazole 40 MG tablet Commonly known as: PROTONIX Take 1 (one) tablet (40 mg total) by mouth every morning . polyethylene glycol 17 gram powder Commonly known as: MIRALAX Take 17 (seventeen) g by mouth daily . Rexulti 1 mg Tab Generic drug: brexpiprazole Take 1 (one) tablet (1 mg total) by mouth every morning . tamsulosin 0.4 mg capsule Commonly known as: FLOMAX Take 1 (one) capsule (0.4 mg total) by mouth daily . Physician(s) Family Provider: No, Physician, Phone: None Address: [facility] Follow Up: [facility] Address: [address] [place], [place] [id number] Servicing Counties: [place]/a [phone] Patient instructions, including activity, were given to the patient/family at discharge. Please seethe After Visit Summary in the electronic medical record for details. Completed by: Jerrica Hutchison PA-C on 10/02/23, 3:48 PM documented in this [id number] Miscellaneous Notes* Quick Note - Soha Luz RN - 10/02/2023 10:50 AM EDT Pt's AVS printed and placed in transport packet. PIV removed from patients hand, condom cath removed from patient. Report given to EMS at bedside. Report called to facility to primary RN. All questions and concerns addressed to the best of Rns ability. 1500 Motorized wheelchair picked up by [employer] transport crew to take back to patients facility. * Plan of Care - Sudeep Ya RN - 10/02/2023 2:11 AM EDT Problem: Actual or potential alteration in health Goal: Absence of healthcare acquired conditions Outcome: Partially Met Goal: Knowledge of Interdisciplinary Plan of Care Outcome: Partially Met Goal: Knowledge of Enviroment Outcome: Partially Met Problem: Pain Goal: Manage acute pain Outcome: Partially Met Goal: Manage chronic pain Outcome: Partially Met Goal: Reduced pain sensation Outcome: Partially Met Goal: Achievement of comfort function goal Outcome: Partially Met Problem: Pressure Ulcer - Risk of Goal: Absence of pressure ulcer Outcome: Partially Met Problem: Falls, Risk of Goal: Absence of falls Outcome: Partially Met Problem: Infection Risk, Urinary Catheter-Associated Goal: Absence of catheter associated urinary tract infection Outcome: Partially Met * Plan of Care - Sudeep Ya RN - 10/01/2023 4:08 AM EDT Problem: Actual or potential alteration in health Goal: Absence of healthcare acquired conditions Outcome: Partially Met Goal: Knowledge of Interdisciplinary Plan of Care Outcome: Partially Met Goal: Knowledge of Enviroment Outcome: Partially Met Problem: Pain Goal: Manage acute pain Outcome: Partially Met Goal: Manage chronic pain Outcome: Partially Met Goal: Reduced pain sensation Outcome: Partially Met Goal: Achievement of comfort function goal Outcome: Partially Met Problem: Pressure Ulcer - Risk of Goal: Absence of pressure ulcer Outcome: Partially Met Problem: Falls, Risk of Goal: Absence of falls Outcome: Partially Met Problem: Infection Risk, Urinary Catheter-Associated Goal: Absence of catheter associated urinary tract infection Outcome: Partially Met * Plan of Care - Pam Connor RN - 09/30/2023 2:11 AM EDT Problem: Actual or potential alteration in health Goal: Absence of healthcare acquired conditions Outcome: Met Goal: Knowledge of Enviroment Outcome: Met Problem: Pain Goal: Manage acute pain Outcome: Met Goal: Manage chronic pain Outcome: Met Goal: Reduced pain sensation Outcome: Met Goal: Achievement of comfort function goal Outcome: Met Problem: Pressure Ulcer - Risk of Goal: Absence of pressure ulcer Outcome: Met Problem: Falls, Risk of Goal: Absence of falls Outcome: Met Problem: Infection Risk, Urinary Catheter-Associated Goal: Absence of catheter associated urinary tract infection Outcome: Met Problem: Actual or potential alteration in health Goal: Knowledge of Interdisciplinary Plan of Care Outcome: Partially Met * Plan of Care - Maci Montanez RN - 09/28/2023 11:13 AM EDT Problem: Actual or potential alteration in health Goal: Absence of healthcare acquired conditions Outcome: Met Goal: Knowledge of Interdisciplinary Plan of Care Outcome: Partially Met Goal: Knowledge of Enviroment Outcome: Partially Met Problem: Pain Goal: Manage acute pain Outcome: Met Goal: Manage chronic pain Outcome: Not Addressed Goal: Reduced pain sensation Outcome: Met Goal: Achievement of comfort function goal Outcome: Met Problem: Pressure Ulcer - Risk of Goal: Absence of pressure ulcer Outcome: Met Problem: Falls, Risk of Goal: Absence of falls Outcome: Met * Quick Note - Allegra Delacruz RN - 09/26/2023 6:59 PM EDT Patient arrives on unit with .cell phone, and clothing pants, shirt, socks shoes, placed in closet, Verified with second associate, Cora Lenz RN Skin assessment completed upon admission to unit. Verified by note author and Tremayne Lenz RN. No abnormalities noted. Preventative Mepilex applied to sacrum * Brief Op Note - Samina Marina PA-C - 09/26/2023 2:25 PM EDT Brief Post Operative Note Patient Name: Johnathan Gonzalez : 1975 (48 y.o.) Date of Service: 09/26/2023 CSN: [id number] Procedure(s): RIGHT CRANIOPLASTY. *PERIOPERATIVE GLYCEMIC PROTOCOL* Pre-Operative Diagnoses: * Skull defect [M95.2] Post-Operative Diagnoses: * Skull defect [M95.2] Surgeon(s) and Role: * Wilton Rankin MD - Primary * Samina Marina PA-C - Assisting Anesthesiologist: Gaurav Negrete MD Installer Interior Assemblies: David Gallardo RN; Ashkan Sherman RN Installer Interior Assemblies Relief: Alejandra Duenas RN Scrub Person Relief: Daysi Pugh ST; Haritha Balderas RN Installer Interior Assemblies Orientee: Ana Maria Hampton RN Daytime Babysitter: Hal Mendoza Operative findings: replacement of right bone flap Intra and immediate post-operative complications: none Type of anesthesia used: General Estimated blood loss: 100 mL Estimated urine output: 250 mL Specimen(s): * No specimens in log * Implant(s): Implant Name Type Inv. Item Serial No. Renal Dialysis Technician Lot No. LRB No. Used Action HEMOSTAT 8 X 12.5CM X 2MM SURGIFOAM GELATIN SPONGE CS/6 - [id number] HEMOSTAT 8 X 12.5CM X 2MM SURGIFOAM GELATIN SPONGE CS/6 NA [employer] Edward[employer] [id number] Right 1 Implanted SEALANT 10ML HEMOSTATIC MATRIX FAST PREP FLOSEAL W/RECOTHROM - SNA SEALANT 10ML HEMOSTATIC MATRIX FAST PREP FLOSEAL W/RECOTHROM NA HAWKINS BIO [id number] Right 1 Implanted SYNTHES PEEK CRANIAL IMPLANT NA SYNTHES [place] [id number] Right 1 Implanted KIT 10ML TISSEEL FROZEN W/ PRIMA SYRINGE - [id number] KIT 10ML TISSEEL FROZEN W/ PRIMA [id number] HAWKINS BIO [id number] Right 1 Implanted PLATE 2HL MATRIXNEURO STR - SNA PLATE 2HL MATRIXNEURO STR NA SYNTHES MA NA Right 5 Implanted SCREW 4MM TI SELF-DRILL MATRIXNEURO - SNA SCREW 4MM TI SELF-DRILL MATRIXNEURO NA SYNTHES MA NA Right 10 Implanted Drain(s): ANDRE x 1 Closed/Suction Drain 1 Right Head - frontal 7 Fr. (Active) Urethral Catheter Non-latex 16 Fr. (Active) Wound(s): closed with jose luis, bacitracin, coverlet x 2 Wound 09/26/23 1 Incision Head Right (Active) Wound Closure Sutures;Jose Luis 09/04/23 0003 Samina Marina PA-C 09/26/2023 2:25 PM Associated attestation - Wilton Rankin MD - 09/26/2023 6:44 PM EDT NEUROSURGERY STAFF Patient is awake, alert Speech fluent Moves RUE, RLE with full strength Left hemiplegia (baseline) Postop CT with expected changes IMP: Stable Postop course PLAN: To Neuro ICU; pain control; q1h neuro checks; mobilize as able Wilton Rankin MD * Op Note - Wilton Rankin MD - 09/26/2023 12:46 PM EDT JOHNATHAN GONZALEZ CSN [id number] 1975 DATE 09/26/2023 OPERATIVE REPORT SURGEON WILTON RANKIN MD, FAANS ASSISTANT HEALTH EDUCATOR SAMINA MARINA PA-C Due to the complexity of this procedure, PA assistance was required. PREOPERATIVE DIAGNOSIS Right middle cerebral artery stroke, skull defect. POSTOPERATIVE DIAGNOSIS Right middle cerebral artery stroke, skull defect. OPERATIVE PROCEDURE Right cranioplasty (greater than 5 cm). OPERATIVE INDICATIONS This is a 48-year-old man who suffered a right-sided middle cerebral artery stroke in 05/2019, for which he underwent an emergent right-sided hemicraniectomy as a lifesaving measure. He presents for elective replacement of bone flap (prefabricated). A detailed discussion of the risks, benefits, and alternatives was undertaken in the preoperative setting. His brother, Romie Gonzalez, who was the patient's POA, was present during informed consent discussion. He wished to proceed with surgery. OPERATIVE PROCEDURE DETAILS The patient was brought to the operating room. After appropriate identification, general endotracheal anesthesia was induced. The patient's head was then placed on a horseshoe headrest and all pressure points were padded appropriately. Hair was clipped in the right frontoparietal temporal region. The scalp was washed. Previous incision line was identified and it was remarked. The area was then sterilely prepped and draped in the usual fashion. It is important to note that the sterile prep was performed using a combination of alcohol, Hibiclens, and chlorhexidine. After a time-out was obtained, a #10 blade scalpel was used to incise the skin. Dissection was carried down sharply to the galea. Bipolar cautery was used for hemostasis as were Sanjay clips along the scalp edges. The scalp was carefully dissected off the underlying cortical surface. There was a good plane between the scalp and the cortical surface. This was developed from a posterior to anterior direction. A small amount of the temporalis muscle was also incised and retracted in a posteroinferior direction. Fish hooks were used for exposure purposes. At this point, the bony edges of the craniectomy defect were identified and thoroughly exposed. A small amount of residual epidural soft tissue was identified and was resected so that the prefabricated bone flap could be accommodated. Once this was performed in a circumferential fashion, the prefabricated bone flap was opened and I ensured that it fit nicely within the defect. Next, a series of tack-up stitches were placed in the residual dura and were brought up through the holes in the prefabricated implant and were tied down to affix the boneflap to the cata[place]ba skull. In addition, titanium miniplates and screws were used to fixate the bone flap to the cata[place]ba skull. A small amount of Tisseel was sprayed over the prefabricated implant after the wound was thoroughly irrigated with vancomycin-impregnated saline. Once hemostasis was obtained in the subgaleal space, a 7 mm ANDRE drain was left in the subgaleal space and tunneled out through a separate stab incision. The wound was then closed in layers with 2-0 Vicryl suture used to close the subcutaneous tissue in interrupted fashion. 3-0 Monocryl was used to close subcutaneous tissue. The skin was closed with jose luis. Dressings were applied. The patient was then transferred onto an awaiting gurney and taken to the recovery room in stable condition. COUNTS All needle and sponge counts were correct at the end of the procedure. ESTIMATED BLOOD LOSS 200 cc. WILTON RANKIN MD, FAANS D 09/26/2023 16:43 [id number] T 09/27/2023 00:30 GKH/MODL * Pre-Procedure Instructions - Shaun Wolff RN - 09/24/2023 1:53 PM EDT Requested med list and H&P from [facility] * Pre-Procedure Instructions - Shaun Wolff RN - 09/23/2023 3:30 PM EDT Spoke with [facility] and requested med list * Pre-Procedure Instructions - Estefania Wilson RN - 09/18/2023 1:35 PM EDT Received 08/27 H&P for patient's upcoming surgery on 09/25. Reviewed with PAT nurse grain manager since there is a handwritten note dated 09/17 from the provider. [facility] to advise surgeon's office that patient will need a new H&P completed since the current PAT will be 31 days old on surgery day. If the patient's facility isn't able to complete this, surgeon could consider direct admitting patient prior to surgery day for hospitalist to complete, if appropriate. documented in this [id number] Note* Quick Note - Soha Luz RN - 10/02/2023 10:50 AM EDT Pt's AVS printed and placed in transport packet. PIV removed from patients hand, condom cath removed from patient. Report given to EMS at bedside. Report called to facility to primary RN. All questions and concerns addressed to the best of Rns ability. 1500 Motorized wheelchair picked up by [employer] transport crew to take back to patients facility. [id number] History of Present illness Narrative* Regina Josue MD - 10/02/2023 9:22 AM EDT [facility] Inpatient Progress Note 10/02/2023 Johnathan Gonzalez 1975 [id number] Assessment/Plan: Johnathan Gonzalez is a 48 y.o. male with a history of htn, seizures, H/o CVA who presented to [facility] 09/26/2023 for planned cranioplasty for skull defect with Dr. Rankin(neurosurgery) 09/26/23 and admitted to [facility]. 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 S/p R cranioplasty for skull defect by Dr. Rankin(neurosurgery) 09/26/23. CT head 09/26/23with expected post op fluid and gas, no significant mass defect. ASA held pend neurosurgery recs. Keppra x 7 days total. S/p Vancomycin completed once drain removed NS following. Seizures: Per hx, continued home meds HTN: Per hx, Bp 107/77 on admit. Continued home norvasc Vascular Dementia: IN setting of above. Continued home Rivastigmine, Rexulti, Provera Chronic Pain/Myositis: with history of LLE myositis and wheel chair bound at baseline in setting ofL hemiplegia. 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 Continued home diet([facility] soft w/thin liquids) Code status: full DVT Prophylaxis: lovenox Thank you for allowing us to participate in the care of your patient. For any questions, please call the number of the covering hospitalist listed under the treatment team in care connect. Current living situation: SN[facility]) Expected Disposition: same Estimated discharge date:10/02/23 Ok to discharge from medicine perspective Labs / Testing / Supervisor In Charge notes reviewed : BMP, CBC, POC Glucose Discussed patient in multi-disciplinary rounds with RN, CM, SW, pharmacist about dispo DW Nsx about discharge Pt tolearting PO, had BM Physical Exam: Seen and examined at the bedside, no acute neurologic symptoms noted BP 111/80 Pulse 79 Temp 98.7 F (37.1 C) (Oral) Resp (!) 19 Ht 5' 10 Wt 89.6 kg (197 lb 8.5 oz) SpO2 94% BMI 28.34 kg/m General: NAD Eyes: anicteric ENT: neck supple Cardiovascular: Regular rate. Respiratory: Clear to auscultation Gastrointestinal: Soft, non tender Genitourinary: no suprapubic tenderness Musculoskeletal: No edema. Skin: warm, dry Neuro: Alert. Follows commands Psych: Mood appropriate. Current Medications: amLODIPine 5 mg Oral QAM atorvastatin 40 mg Oral at bedtime baclofen 5 mg Oral BID brexpiprazole 1 mg Oral QAM DULoxetine 60 mg Oral at bedtime enoxaparin (LOVENOX) injection 40 mg Subcutaneous Daily finasteride 5 mg Oral Daily insulin lispro 0-30 Units Subcutaneous 4x daily levETIRAcetam 500 mg Oral BID medroxyPROGESTERone 10 mg Oral BID melatonin 6 mg Oral Nightly pantoprazole 40 mg Oral QAM polyethylene glycol 17 g Oral Daily senna-docusate 1 tablet Oral BID sodium chloride (PF) 5 mL Intravenous Q8H ELIER tamsulosin 0.4 mg Oral Daily Labs, Imaging and Studies reviewed: Results from last 7 days Lab Units 10/02/23 0511 10/01/23 0545 09/30/23 0737 WBC K/mcL 9.57 10.06 10.04 HGB g/dL 10.8* 10.7* 10.5* HCT % 32.8* 32.6* 31.6* PLT K/mcL 200 185 190 Results from last 7 days Lab Units 10/02/23 0511 10/01/23 0544 09/30/23 0737 09/29/23 0433 09/28/23 0403 09/27/23 0309 SODIUM mmol/L 141 141 139 140 142 141 POTASSIUM mmol/L 3.6 3.6 3.9 3.4* 3.7 4.2 CHLORIDE mmol/L 109* 110* 109* 108 109* 107 BICARB mmol/L 23 22 22 24 23 23 BUN mg/dL 10 10 6* 7* 10 9 CREATININE mg/dL 0.98 0.92 0.94 0.96 1.14 1.02 EGFR mL/min/1.73 m2 94 101 99 96 78 90 GLUCOSE mg/dL 100* 100* 98 97 104* 130* PHOSPHORUS mg/dL -- -- -- 3.5 1.9* 3.3 * Liliya Garcia RN - 10/02/2023 8:31 AM EDT Care Management Progress Note Date: 10/02/2023 Time: 8:32 AM Patient Name: Johnathan Gonzalez Date of : 1975 CM dispo plan: Plan A - Return to [facility]. Pre-cert approved. Ambulance transport time noted for 10 AM. Plan B - Same as A. Chart reviewed. Ambulance transport time noted for 10 AM today. Clinical team, patient, POA, and facility updated. Discharge Plan: D/C Disposition: Long-Term Care Final D/C Agency/Destination: ([facility]) How did you provide the Post Acute Choices: (Phone call with POA) Options Reviewed: Explained services/benefits Reason for Choice: Patient/Family preference Plan A: [facility] Care (From [facility]) Plan A : Post Acute Patient Choice 1: Other (From [facility]) Plan B: Nursing Home Facility Discharging Transportation Plan: Transportation Type: Ambulance Discharge Plan Status: LT Assessment and Background Information: * Jerrica Hutchison PA-C - 10/02/2023 7:43 AM EDT NEUROSURGERY PROGRESS NOTE: Johnathan Moran Lisa 1975 [id number] Assessment/Plan: POD # 6 s/p RIGHT CRANIOPLASTY - Hx of R MCA CVA, s/p craniectomy - Neuro exam stable, continue to monitor - Pain well controlled - Drain removed 09/29 - HOB > 30 degrees - Keppra x 7 days - Plan for discharge today to LTC Subjective: Patient resting comfortably in bed. No acute issues reported, all questions answered. Physical Exam: Neuro: Alert & oriented. PERRL. EOMI, Conjugate gaze, No gross nystagmus Face symmetric, Tongue midline. Speech clear, delayed Follows commands R side, L hemiplegia Incision GRIPPER MACHINE OPERATOR, no erythema or drainage Vital Signs: Current: BP 121/81 (BP Location: Right arm, Patient Position: Lying) Pulse 72 Temp 98.2 F (36.8 C) (Oral) Resp (!) 19 Ht 5' 10 Wt 89.6 kg (197 lb 8.5 oz) SpO2 95% BMI 28.34 kg/m Last 24 hours: Temp: [98.2 F (36.8 C)-98.8 F (37.1 C)] 98.2 F (36.8 C) Heart Rate: [72-98] 72 Resp: [17-19] 19 BP: (108-124)/(75-82) 121/81 Intake/Output Summary (Last 24 hours) at 10/02/2023 0769 Last data filed at 10/01/2023 1700 Gross per 24 hour Intake -- Output 900 ml Net -900 ml Labs: Lab Results Component Value Date NA 141 10/02/2023 K 3.6 10/02/2023 CL 109 (H) 10/02/2023 Lab Results Component Value Date WBC 9.57 10/02/2023 HGB 10.8 (L) 10/02/2023 HCT 32.8 (L) 10/02/2023 MCV 88.6 10/02/2023 PLT 200 10/02/2023 Lab Results Component Value Date INR 1.1 08/11/2019 INR 1.1 06/09/2019 INR 1.0 05/25/2019 PROTIME 13.4 08/11/2019 PROTIME 13.8 06/09/2019 PROTIME 13.2 05/25/2019 Imaging: Jerrica Hutchison PA-C Completed by: Jerrica Hutchison PA-C, PA-C on 10/02/23, 7:43 AM * Mary Croft - 10/01/2023 1:13 PM EDT Medical Transportation set up by [facility] per hospital request: Date:10/02/23 Time:10am Destination:[facility] [place] [address] Company: [employer] ([phone]) Special needs/equipment:N/A Truck Type: Ambulance Companies called: [employer] * Anisha Camp RN - 10/01/2023 1:07 PM EDT Transport request received and is being scheduled, trip information will follow as soon as the timeis secured. * Mc Guadalupe - 10/01/2023 11:59 AM EDT Communicated with Special Inspector, patient ready, pre-cert approved, and bed available at accepting facility. No HENS needed. Per manager social work and/or case supervisor, patient meets criteria for ambulance transport and this includes two-person assistance and/or max assistance for transfers . Ambulance transportation requested. Addendum- 13:35 Medical Transportation set up by [facility]: Date:10/02/23 Time:10am Destination:[facility] [address] [place] [address] Company: [employer] ([phone]) Truck Type: Ambulance Attending, Bedside RN, and education trainer made aware by this Special Inspector Website Designer. Awaiting discharge order. * Regina Josue MD - 10/01/2023 11:43 AM EDT [facility]23 Johnathan Gonzalez 1975 [id number] Assessment/Plan: Johnathan Gonzalez is a 48 y.o. male with a history of htn, seizures, H/o CVA who presented to [facility] 09/26/2023 for planned cranioplasty for skull defect with Dr. Rankin(neurosurgery) 09/26/23 and admitted to [facility]. 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 S/p R cranioplasty for skull defect by Dr. Rankin(neurosurgery) 09/26/23. CT head 09/26/23with expected post op fluid and gas, no significant mass defect. ASA held pend neurosurgery recs. Keppra x 7 days total. S/p Vancomycin completed once drain removed NS following. Seizures: Per hx, continued home meds HTN: Per hx, Bp 107/77 on admit. Continued home norvasc Vascular Dementia: IN setting of above. Continued home Rivastigmine, Rexulti, Provera Chronic Pain/Myositis: with history of LLE myositis and wheel chair bound at baseline in setting ofL hemiplegia. 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 Continued home diet([facility] soft w/thin liquids) Code status: full DVT Prophylaxis: lovenox Thank you for allowing us to participate in the care of your patient. For any questions, please call the number of the covering hospitalist listed under the treatment team in care connect. Current living situation: SNF([facility]) Expected Disposition: same Estimated discharge date:10/02/23 Subjective: Patient new to pa. I reviewed prior medical records and history in EMR. Labs / Testing / Supervisor In Charge notes reviewed : BMP, CBC, INR, CTH Discussed patient in multi-disciplinary rounds with RN, CM, SW, pharmacist about dispo, start precert Pt has no complaints Physical Exam: Seen and examined at the bedside, no acute neurologic symptoms noted BP 116/82 Pulse 98 Temp 98.3 F (36.8 C) (Oral) Resp 14 Ht 5' 10 Wt 89.6 kg (197 lb 8.5 oz) SpO2 95% BMI 28.34 kg/m General: NAD Eyes: EOMI ENT: neck supple Cardiovascular: Regular rate. Respiratory: Clear to auscultation Gastrointestinal: Soft, non tender Genitourinary: no suprapubic tenderness Musculoskeletal: No edema. Skin: warm, dry Neuro: Alert. Follows commands Psych: Mood appropriate. Current Medications: amLODIPine 5 mg Oral QAM atorvastatin 40 mg Oral at bedtime baclofen 5 mg Oral BID brexpiprazole 1 mg Oral QAM DULoxetine 60 mg Oral at bedtime enoxaparin (LOVENOX) injection 40 mg Subcutaneous Daily finasteride 5 mg Oral Daily insulin lispro 0-30 Units Subcutaneous 4x daily levETIRAcetam 500 mg Oral BID medroxyPROGESTERone 10 mg Oral BID melatonin 6 mg Oral Nightly pantoprazole 40 mg Oral QAM polyethylene glycol 17 g Oral Daily senna-docusate 1 tablet Oral BID sodium chloride (PF) 5 mL Intravenous Q8H ELIER tamsulosin 0.4 mg Oral Daily Labs, Imaging and Studies reviewed: Results from last 7 days Lab Units 10/01/23 0545 09/30/23 0737 09/29/23 0433 WBC K/mcL 10.06 10.04 7.48 HGB g/dL 10.7* 10.5* 10.6* HCT % 32.6* 31.6* 31.9* PLT K/mcL 185 190 175 Results from last 7 days Lab Units 10/01/23 0544 09/30/23 0737 09/29/23 0433 09/28/23 0403 09/27/23 0309 SODIUM mmol/L 141 139 140 142 141 POTASSIUM mmol/L 3.6 3.9 3.4* 3.7 4.2 CHLORIDE mmol/L 110* 109* 108 109* 107 BICARB mmol/L 22 22 24 23 23 BUN mg/dL 10 6* 7* 10 9 CREATININE mg/dL 0.92 0.94 0.96 1.14 1.02 EGFR mL/min/1.73 m2 101 99 96 78 90 GLUCOSE mg/dL 100* 98 97 104* 130* PHOSPHORUS mg/dL -- -- 3.5 1.9* 3.3 * Liliya Garcia RN - 10/01/2023 10:12 AM EDT Care Management Progress Note Date: 10/01/2023 Time: 10:12 AM Patient Name: Johnathan Gonzalez Date of : 1975 CM dispo plan: Plan A - Return to [facility]. Per [facility] Liaison. [place] [employer] pre-cert is needed. Plan B - Same as A. Chart reviewed and current plan of care noted. Therapy recommendations include: 09/30/2023 - PT (AM-PAC = 6 with documented baseline of 9) Skilled Therapy: Up to 5 days per week 09/30/2023 - OT (AM-PAC = 6 with documented baseline of 16) Skilled Therapy: Up to 5 days per week No DME recommendations at this time. CM will continue to follow for medical readiness. Addendum at 1130: Phone call to [facility] [phone] (Fax is: [phone]). Spoke with Barbara. She stated she pro-actively initiated pre-cert and it was approved. Patient can be received Teresa tomorrow. Recent clinical notes faxed. CM in to see patient provided update. Questions addressed. Patient requires ambulance due to bed confinement and 2 person assist and/or max assist for transfers and wheelchair bound; applicable diagnoses: CVA/Skull Defect & Seizures. Mc, CME to assist with ambulance transport. Secure chat update sent to clinical team. Discharge Plan: D/C Disposition: Intermediate Care Facility Final D/C Agency/Destination: Other ([facility]) How did you provide the Post Acute Choices: (Phone call with POA) Options Reviewed: Explained services/benefits Reason for Choice: Patient/Family preference Plan A: Long-Term Care (From [facility]) Plan A : Post Acute Patient Choice 1: Other (From [facility]) Plan B: Nursing Home Facility Discharging Transportation Plan: Transportation Type: Ambulance, W/C Van Discharge Plan Status: LTC Assessment and Background Information: * Haritha Kirk, PHYSICAL THERAPY DIRECTOR - 10/01/2023 8:32 AM EDT Neurosurgery Note: A/P: S/p craniectomy Hx R MCA CVA -s/p POD 5 Cranioplasty for skull defect w/ Dr Rankin -Exam stable -Drain removed 09/29 -HOB to 30 -Pain control -Keppra x 7 days -Chemical DVT prophylaxis ok 24hrs after stable -DC to LTC, awaiting precert S: Seen and examined. Sleeping, easily arouses. No new issues, hoping to return to facility today. O: Current: BP 125/84 Pulse 87 Temp 98.3 F (36.8 C) (Oral) Resp 14 Ht 5' 10 Wt 89.6 kg (197 lb 8.5 oz) SpO2 94% BMI 28.34 kg/m Lab Results Component Value Date WBC 10.06 10/01/2023 HGB 10.7 (L) 10/01/2023 HCT 32.6 (L) 10/01/2023 MCV 90.1 10/01/2023 PLT 185 10/01/2023 Lab Results Component Value Date NA 141 10/01/2023 K 3.6 10/01/2023 CL 110 (H) 10/01/2023 Lab Results Component Value Date INR 1.1 08/11/2019 INR 1.1 06/09/2019 INR 1.0 05/25/2019 PROTIME 13.4 08/11/2019 PROTIME 13.8 06/09/2019 PROTIME 13.2 05/25/2019 Neuro: Alert & oriented. PERRL. EOMI, Conjugate gaze, No gross nystagmus Face symmetric, Tongue midline. Speech clear, delayed Follows commands R side, L hemiplegia Incision FUENTES, old bloody drainage, no erythema * Liliya Garcia RN - 09/30/2023 11:39 AM EDT Care Management Progress Note Date: 09/30/2023 Time: 11:39 AM Patient Name: Johnathan Gonzalez Date of : 1975 [facility] [facility] has been assessed for the following related to the stroke survivor after discharge: Understanding what assistance with personal care/activities of daily living is needed Caregiver verbalizes understanding Willingness to provide assistance with personal care/activities of daily living Caregiver verbalizes willingness Health problems that may impact the caregiver s ability to provide care Caregiver has no health problems that would impact ability to provide care Family/friends who are able to assist the caregiver with providing care Caregiver verbalizes friends/family who are able to assist at home Roles and/or responsibilities that would impact the caregiver s ability to provide care Caregiver verbalizes no roles/responsibilities that would impact providing care Concerns about their ability to continue providing care over the next year Caregiver verbalizes no concerns for providing care over the next year Financial concerns related providing caring Caregiver verbalizes no financial concerns o Referral made to (PT, OT, FLEXBOARD OPERATOR, Ihsan, other) Discharge Plan: D/C Disposition: Home ([facility]) Final D/C Agency/Destination: Other ([facility]) How did you provide the Post Acute Choices: (Phone call with POA) Reason for Choice: Patient/Family preference, Currently with agency Plan A: Nursing Home Facility (LTC wants to skill the pt.) Plan B: Intermediate Care facility (*If* no skilled needs) Discharging Transportation Plan: Transportation Type: Ambulance, W/C Van (WC bound at baseline, waiting on therapy) Discharge Plan Status: TBD Assessment and Background Information: * Liliya Garcia RN - 09/30/2023 11:31 AM EDT Care Management Progress Note Date: 09/30/2023 Time: 11:31 AM Patient Name: Johnathan Gonzalez Date of : 1975 CM dispo plan: Plan A - Return to [facility] Plan B - [facility] SNF if with therapy recommendations (pending). Will need Pre-cert.. CM consult for discharge needs. Chart reviewed and current plan of care noted. OT and PT evaluations pending. AREA FIELD PERSON note of 09/28/2023 indicates patient is LTC resident at [facility] (referral sent on same day). Ambulatory order for SNF placed. Therapy recommendations include: - PT (AM-PAC = TBD) Evaluation Pending - OT (AM-PAC = TBD) Evaluation Pending No DME recommendations at this time. CM in to see patient. Provided introduction of role on the care team. Informed patient of pending therapy evaluations. Discussed possible recommendations for therapy after discharge. Patient plan A is to [facility]. He is willing to consider therapy recommendations as indicated at the same facilty. Questions addressed. Phone call to [facility] [phone] (Fax is: [phone]). No answer. Voice message left for Barbara requesting return call to discuss dispo planning. Return contact info provided. Phone call to Eladio Gonzalez (DESIREE) [phone]. No answer. Voice message left requesting return call to discuss dispo planning. Return contact info provided. CM will continue to follow for final discharge needs. Provided Understanding Stroke Brochure. Discussed content and resources. Addendum at 1340: Phone call to Barbara at [facility]. She confirmed patient can return. She stated since patient is [place] pre-cert is needed. She will initiate pre-cert.. Discharge Plan: D/C Disposition: Home ([facility]) Final D/C Agency/Destination: Other ([facility]) How did you provide the Post Acute Choices: (Phone call with DESIREE) Reason for Choice: Patient/Family preference, Currently with agency Plan A: Nursing Home Facility (LTC wants to skill the pt.) Plan B: Intermediate Care facility (*If* no skilled needs) Discharging Transportation Plan: Transportation Type: Ambulance, W/C Van (WC bound at baseline, waiting on therapy) Discharge Plan Status: TBD Assessment and Background Information: * Haritha Kirk CNP - 09/30/2023 10:39 AM EDT Neurosurgery Note: A/P: S/p craniectomy Hx R MCA CVA -s/p POD 4 Cranioplasty for skull defect w/ Dr Rankin -Drain: 280 cc ovn. Does have a big CSF component. Likely remove soon -Exam stable -HOB to 30 -Pain control -Keppra x 7 days -Chemical DVT prophylaxis ok 24hrs after stable HCT S: Seen and examined. Resting in bed. Denies VILLALTA, nausea/vomiting, any new issues. O: Current: BP 122/83 (BP Location: Right arm, Patient Position: Lying) Pulse 76 Temp 98.5 F (36.9 C) (Oral) Resp 15 Ht 5' 10 Wt 87.7 kg (193 lb 5.5 oz) SpO2 96% BMI 27.74 kg/m Lab Results Component Value Date WBC 10.04 09/30/2023 HGB 10.5 (L) 09/30/2023 HCT 31.6 (L) 09/30/2023 MCV 87.3 09/30/2023 PLT 190 09/30/2023 Lab Results Component Value Date NA 139 09/30/2023 K 3.9 09/30/2023 CL 109 (H) 09/30/2023 Lab Results Component Value Date INR 1.1 08/11/2019 INR 1.1 06/09/2019 INR 1.0 05/25/2019 PROTIME 13.4 08/11/2019 PROTIME 13.8 06/09/2019 PROTIME 13.2 05/25/2019 Neuro: Awake and alert speech fluent and appropriate PERRL EOMI, Conjugate gaze, No gross nystagmus Face symmetric, Tongue midline Follows commands R side, L hemiplegia 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 male with a history of htn, seizures, H/o CVA who presented to [facility] 09/26/2023 for planned cranioplasty for skull defect with Dr. Rankin(neurosurgery) 09/26/23 and admitted to [facility]. Marco Antonio consulted for [facility] step down management. 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 S/p R cranioplasty for skull defect by Dr. Rankin(neurosurgery) 09/26/23. CT head 09/26/23with expected post op fluid and gas, no significant mass defect. ASA held pend neurosurgery recs. Keppra x 7 days total. Drain management per neurosurgery. Vancomycin will be of after drain removal. NS following. Seizures: Per hx, continued home meds HTN: Per hx, Bp 107/77 on admit. Continued home norvasc Vascular Dementia: IN setting of above. Continued home Rivastigmine, Rexulti, Provera Chronic Pain/Myositis: with history of LLE myositis and wheel chair bound at baseline in setting ofL hemiplegia. 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 Continued home diet([facility] soft w/thin liquids) Code status: full DVT Prophylaxis: lovenox Thank you for allowing us to participate in the care of your patient. For any questions, please call the number of the covering hospitalist listed under the treatment team in care connect. Current living situation: SNF([facility]) Expected Disposition: same Estimated discharge date: Defer to primary Subjective: Today is my first time seeing the patient. Patient was laying comfortably in bed. Reviewed images of the CT head. Still with drain. Discussed with neurosurgery, drain is still with 280 cc output, likely plan to remove either today or tomorrow. Also discussed with pharmacist regarding seizure medications. CBC and BMP reviewed. Also discussed with manager social work regarding discharge plan. Physical Exam: Seen and examined at the bedside, no acute neurologic symptoms noted BP 117/79 Pulse 80 Temp 97.8 F (36.6 C) (Oral) Resp 15 Ht 5' 10 Wt 87.7 kg (193 lb 5.5 oz) SpO2 94% BMI 27.74 kg/m General: NAD Eyes: EOMI ENT: neck supple Cardiovascular: Regular rate. Respiratory: Clear to auscultation Gastrointestinal: Soft, non tender Genitourinary: no suprapubic tenderness Musculoskeletal: No edema. Skin: warm, dry Neuro: Alert. Psych: Mood appropriate. Current Medications: amLODIPine 5 mg Oral QAM atorvastatin 40 mg Oral at bedtime baclofen 5 mg Oral BID brexpiprazole 1 mg Oral QAM DULoxetine 60 mg Oral at bedtime enoxaparin (LOVENOX) injection 40 mg Subcutaneous Daily finasteride 5 mg Oral Daily insulin lispro 0-30 Units Subcutaneous 4x daily levETIRAcetam 500 mg Oral BID medroxyPROGESTERone 10 mg Oral BID melatonin 6 mg Oral Nightly pantoprazole 40 mg Oral QAM polyethylene glycol 17 g Oral Daily senna-docusate 1 tablet Oral BID sodium chloride (PF) 5 mL Intravenous Q8H ELIER tamsulosin 0.4 mg Oral Daily vancomycin 1,500 mg Intravenous Q18H Labs, Imaging and Studies reviewed: Results from last 7 days Lab Units 09/29/23 0433 09/28/23 0401 09/27/23 0309 WBC K/mcL 7.48 8.54 10.85 HGB g/dL 10.6* 11.3* 12.1* HCT % 31.9* 33.9* 37.2* PLT K/mcL 175 170 194 Results from last 7 days Lab Units 09/29/23 0433 09/28/23 0403 09/27/23 0309 SODIUM mmol/L 140 142 141 POTASSIUM mmol/L 3.4* 3.7 4.2 CHLORIDE mmol/L 108 109* 107 BICARB mmol/L 24 23 23 BUN mg/dL 7* 10 9 CREATININE mg/dL 0.96 1.14 1.02 EGFR mL/min/1.73 m2 96 78 90 GLUCOSE mg/dL 97 104* 130* PHOSPHORUS mg/dL 3.5 1.9* 3.3 * Pam Connor RN - 09/30/2023 5:16 AM EDT Pt's ANDRE drain output decreased throughout shift * Cece Holm - 09/30/2023 2:03 AM EDT Spiritual Care Progress Note Completed by: Ceec Holm Person(s) Present During this Visit: Patient, Healthcare Provider Time Spent in Direct Patient Care: 30 Narrative: Bridge Construction Inspector visited with RN. Updated by RN. RN requested a later visit. Rn encouraged diesel electrician for follow up visit to support pt during his hospitalization due to pt's condition at this time.Bridge Construction Inspector provided supportive presence. Pastoral Care team will remain available for support as needed. Patients Response to Pastoral Care: Timing of Visit Not Optimal. Visit Rescheduled Planning for Future Visits: PRN Patient's Spiritual Needs Assessment Sources of Connection Beliefs and Practices Image of the Divine Role of Divine in Patient's Illness Spiritual Wellness - Activities and Resources Grief Assessment Expressed / Stated Feelings Attitude Towards Own Illness Understanding of Patients Coping Mechanisms Spiritual Diagnosis Facilitated Interventions Spiritual and Emotional Outcomes Resources Provided Bereavement Resources Spiritual Plan of Care Patient's Rastafari Needs Assessment Rastafari Connection Rastafari Home Hoahaoism Affiliation Local Sikhism Name Rastafari Resources Rastafari Rituals Rastafari Materials Provided Expressed Outcomes Family / Caregiver Needs Assessment Relationship to Patient Affect at Time of Visit Emotions Expressed During Visit Expressed Concerns Regarding Illness Sources of Hope and Strength Support and Participation in Care Grief Assessment Spiritual Assessment Interventions with Family / Friend Outcomes with Family / Friend Cece Holm, MTS , [facility] Advanced Bridge Construction Inspector Practitioner, Pastoral Care [facility] Office: [phone] * Dejah Oshea CNP - 09/29/2023 11:09 AM EDT Neurocritical Care Transfer Note Johnathan Gonzalez is a 48 y.o. male with a PMH of CVA (prior R hemicraniectomy and residual L hemiplegia), Vascular Dementia, Seizure, HTN, HLD, Anxiety/Depression, BPH, and DM2 presented to [place] 09/26/2023 for a planned R cranioplasty with Dr. Rankin. 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 Due to ongoing POA challenges his cranioplasty was delayed, however his brother Eladio is now serving as pt's POA and wishes to undergo surgical repair. Admitted with these risk variables:None. Please see assessment and plan for further details. TRANSFER SUMMARY Significant Procedures: - s/p R cranioplasty with Dr. Rankin (09/25) Stop Dates for Current Temporary Therapies: - none Medication Instructions: - no specific titrations pending Does Neurology need to be consulted upon transfer to the floor? If so, for what? - no Consultative follow-up needed at outpatient: - NSGY Assessment and Plan NEUROLOGIC CVA / Skull Defect - Per history, prior stroke 05/2019 R MCA CVA with malignant edema requiring hemicraniectomy. - POD#2 s/p R cranioplasty with Dr. Rankin (09/25) - [facility] 09/25 1500hrs post-op cranioplasty on R with some expected post op fluid/gas bubbles beneath the cranioplasty flap. No mass effect noted. Large chronic R MCA infarct, stable. No mass effect, hydro, or post op hemorrhage. - Resume home Statin & ASA when cleared by NSGY post op - ANDRE drain in place, management per NSGY - PRNs ordered for post op pain management - PT/OT Seizure - Per history - Continue home Keppra 500 BID - Depakote noted on med history but per ECF records and KHADIJAH no longer taking Anxiety/Depression - Per history - Continue home Cymbalta Vascular Dementia - Per history - Continue home Rivastigmine, Rexulti, Provera Chronic pain / Myositis - History of LLE myositis and wheelchair bound at baseline with L hemiplegia - Continue home Baclofen - Per ECF and KHADIJAH records pt no longer taking Neurontin - Continue home bowel regimen (Miralax) - PRNs for post op pain control available CARDIOVASCULAR HTN - Per history - Continue home Norvasc HLD - Per history - Continue home statin Rhythm and BP stable. PULMONARY Protecting airway and oxygenating appropriately on room air. RENAL SNa 140, K 3.4, SCr 0.96 / BUN [address]. BPH - Per history - Continue home Proscar, Flomax HEMATOLOGIC Hgb 10.6 / HCT 31.9, Plt 175, INR - - ID Afebrile Tm < 99.5, WBC 7.48 ENDOCRINE DM2 - Per history - A1c 5.3 05/2019 -- recheck 5.1 (09/27/2023) - Glucose goal 80 - 180 - SSI ordered GI / HEPATIC ADAT post op, BR ordered Dysphagia - Secondary to R MCA stroke, present prior to admission - Resume modified diet ([facility] soft with thin liquids) GERD - Per history - Continue home PPI PROPHYLAXIS SCDs, Home PPI, and SQ Lovenox CODE STATUS / FAMILY Full code Plan discussed with [facility] attending Dr. Waller. Dejah Oshea CNP Neurocritical Care Subjective / Events: Pt doing well this AM sitting up in bed. No complaints from overnight. Hemodynamically and clinically stable to transfer out of [facility]. Review of Systems: [x] CV, Resp, GI, Neuro, and all other systems reviewed and negative other than listed above. [] Unable to obtain review of systems due to intubation, critically ill condition, and/or neurologic status. Past Medical, Surgical and Social History: Medical History: Past Medical History: Diagnosis Date Arthritis Diabetes mellitus (HCC) Hypertension MRSA (methicillin resistant Staphylococcus aureus) Seizures (HCC) Stroke (HCC) Syncope Surgical History: Past Surgical History: Procedure Laterality Date BRONCHOSCOPY N/A 06/09/2019 Procedure: BRONCHOSCOPY with tracheostomy; Surgeon: Luc Rodas MD; Location: [facility]; Service: General Surgery CRANIECTOMY Right 05/26/2019 Procedure: right hemiCRANIECTOMY; Surgeon: Wilton Rankin MD; Location: [facility] NEURO OR; Service: Neurological CRANIOPLASTY Right 09/26/2023 Procedure: RIGHT CRANIOPLASTY. *PERIOPERATIVE GLYCEMIC PROTOCOL*; Surgeon: Wilton Rankin MD; Location: [facility] NEURO OR; Service: Neurological EGD N/A 06/09/2019 Procedure: ESOPHAGOGASTRODUODENOSCOPY with percutaneous endoscopic gastrostomy tube placement; Surgeon: Luc Farmer MD; Location: [facility] Endo; Service: Gastroenterology Family History: History reviewed. No pertinent family history. Social History: Social History Socioeconomic History Marital status: Tobacco Use Smoking status: Former Smokeless tobacco: Current Types: Snuff Substance and Sexual Activity Alcohol use: Yes Alcohol/week: 12.0 standard drinks of alcohol Types: 12 Cans of beer per week Comment: per week Drug use: Not Currently Allergies and Medications: Allergies: No Known Allergies Hospital medications reviewed. Home medications: Prior to Admission medications Medication Sig Start Date End Date Taking? Authorizing Provider acetaminophen (TYLENOL) 325 MG tablet Take 2 (two) tablets (650 mg total) by mouth every 4 (four) hours as needed for pain Reasons: pain. Yes Betina Madsen MD amLODIPine (NORVASC) 5 MG tablet Take 1 (one) tablet (5 mg total) by mouth every morning . Yes Betina Madsen MD aspirin 81 MG EC tablet Take 1 (one) tablet (81 mg total) by mouth daily . Yes Betina Madsen MD atorvastatin (LIPITOR) 40 MG tablet Take 1 (one) tablet (40 mg total) by mouth at bedtime . Yes Betina Madsen MD baclofen 5 mg Tab Take 1 (one) tablet (5 mg total) by mouth 2 (two) times a day . Yes Betina Madsen MD brexpiprazole (Rexulti) 1 mg Tab Take 1 (one) tablet (1 mg total) by mouth every morning . Yes Betina Madsen MD DULoxetine (CYMBALTA) 60 MG capsule Take 1 (one) capsule (60 mg total) by mouth at bedtime . Yes Betina Madsen MD finasteride (PROSCAR) 5 mg tablet Take 1 (one) tablet (5 mg total) by mouth daily . Yes Betina Madsen MD levETIRAcetam (KEPPRA) 500 MG tablet Take 1 (one) tablet (500 mg total) by mouth 2 (two) times a day . Yes Betina Madsen MD medroxyPROGESTERone (PROVERA) 10 MG tablet Take 1 (one) tablet (10 mg total) by mouth 2 (two) timesa day . Yes Betina Madsen MD melatonin 3 mg Tab Take 2 (two) tablets (6 mg total) by mouth nightly . Yes Betina Madsen MD ondansetron (ZOFRAN-ODT) 4 MG disintegrating tablet Dissolve 1 (one) tablet (4 mg total) on top of tongue every 6 (six) hours as needed . 10/14/19 09/26/23 Yes Romario Fatima DO pantoprazole (PROTONIX) 40 MG tablet Take 1 (one) tablet (40 mg total) by mouth every morning . YesBetina Madsen MD polyethylene glycol (MIRALAX) 17 gram powder Take 17 (seventeen) g by mouth daily . Yes Betina Masden MD tamsulosin (FLOMAX) 0.4 mg capsule Take 1 (one) capsule (0.4 mg total) by mouth daily . Yes Betina Madsen MD albuterol 90 mcg/actuation inhaler Inhale 2 (two) puffs every 6 (six) hours as needed for wheezing . Betina Madsen MD atorvastatin (LIPITOR) 80 MG tablet Take 1 (one) tablet (80 mg total) by mouth nightly . 10/14/19 09/26/23 Romario Fatima DO divalproex (Depakote Sprinkles) 125 mg delayed release (DR) capsule Take 4 (four) capsules (500 mg total) by mouth 3 (three) times a day . Betina Madsen MD famotidine (PEPCID) 20 MG tablet Take 1 (one) tablet (20 mg total) by mouth nightly . 10/14/19 09/26/23 Romario Fatima DO gabapentin (NEURONTIN) 300 MG capsule Take 3 (three) capsules (900 mg total) by mouth every 8 (eight) hours for 3 days . 10/14/19 09/26/23 Romario Fatima DO melatonin 5 mg Tab Take 1 (one) tablet (5 mg total) by mouth nightly as needed (insomnia) . 10/14/19 09/26/23 Romario Fatima DO menthol 4 % Gel Apply topically 2 (two) times a day as needed (knees/shoulders) . Betina Madsen MD potassium chloride (MICRO-K) 10 MEQ CR capsule Take 1 (one) capsule (10 mEq total) by mouth daily .Betina Madsen MD RIVASTIGMINE TARTRATE ORAL Take 6 mg by mouth 2 (two) times a day . Betina Madsen MD simethicone (MYLICON,GAS-X) 180 mg capsule Take 1 (one) capsule (180 mg total) by mouth 3 (three) times a day . Provider, Historical, MD Exam Vital Signs: Temp: [97.8 F (36.6 C)-99.8 F (37.7 C)] 99.3 F (37.4 C) Heart Rate: [66-98] 72 Resp: [8-19] 8 BP: (106-131)/(83-100) 126/91 I/O last 3 completed shifts: In: 2067.3 [P.O.:680; IV Piggyback:1387.3] Out: 3135 [Urine:2600; Drains:535] General: Alert and appears comfortable on RA.Flat affect. Head/Neck: Head - right cranial dressing shadowed with serosanguineous drainage. ANDRE x1 with sanguineous output. Eyes - Sclerae anicteric. Ears - External ears normal. Nose: Normal. Mouth - MMM. Neck - trachea is midline. Cardiovascular: Regular rate and rhythm. No clicks, rubs, murmurs, or gallops noted. Peripheral extremity pulses are palpable. Respiratory: Respiratory effort unlabored without accessory muscle use. Lung sounds clear to ascultation bilaterally without wheezes, rales, or rhonchi. Abdominal: Rounded, soft, nondistended, nontender, decreased bowel sounds. Musculoskeletal: No obvious long bone deformity. Extremities: Well perfused. No clubbing, cyanosis, or edema noted. Neurological: Awake and alert, oriented to name, place, and time. Gaze conjugate, EOMI. PERRL @ 3mm. Speech clear and appropriate. Minimal left facial weakness. Tongue midline. Motor strength 5/5 to RUE/RLE. Left hemiplegia. Skin: Normal turgor, well-hydrated, no diffuse rash appreciated. Clinical Data: [x] Lab, Micro data reviewed. [x] Most recent imaging reviewed. No results for input(s): PHART, ZYZ0EWM, PO2ART, C3NRXPRO, RESPRATE, TIDALVOL, PEEP, F7HVCMTC in the last 72 hours. Recent Labs 09/27/23 03009/28/23 0401 09/29/23 0433 WBC 10.85 8.54 7.48 HGB 12.1* 11.3* 10.6* PLT 194 170 175 Recent Labs 09/27/23 0309 09/28/23 0401 09/28/23 0403 09/29/23 0433 NA 141 -- 142 140 K 4.2 -- 3.7 3.4* CL 107 -- 109* 108 BICARB 23 -- BUN 9 -- 10 7* CREATININE 1.02 -- 1.14 0.96 GLUCOSE 130* -- 104* 97 PHOS 3.3 -- 1.9* 3.5 MG 2.2 -- 1.9 2.0 KATHY 4.9 4.8 -- 5.0 Lab Results Component Value Date LACTICACID 0.7 06/04/2019 LACTICACID 0.7 06/03/2019 LACTICACID 0.7 06/03/2019 No results for input(s): INR, PTT in the last 72 hours. Labs Last Refreshed: CBC - 09/29/2023, BMP - 09/29/2023, CMP - - -, Coag - 08/11/2019 * Mark Hillman DO - 09/29/2023 9:28 AM EDT Neurosurgery Note: A/P: S/p craniectomy Hx R MCA CVA -s/p POD 3 Cranioplasty for skull defect w/ Dr Rankin -Drain: 135 cc ovn. Does have a big CSF component. Likely remove soon -Post-op HCT w/ expected post op changes -Vitals reviewed -Labs reviewed -Medications reviewed -Neuro exam -Neuro checks -HOB to 30 -Advance diet and activities as tolerated -BP control -Pain control -Keppra x 7 days -Follow drain output, maintain drains for now -Chemical DVT prophylaxis ok 24hrs after stable HCT Admitted with these risk variables:Diabetes, Acute Glycemic Conditions. Please see assessment and plan for further details. S: Seen and examined in NCC. O: Current: BP (!) 126/91 (BP Location: Left arm, Patient Position: Lying) Pulse 72 Temp 99.3 F (37.4 C) Resp (!) 8 Ht 5' 10 Wt 87.7 kg (193 lb 5.5 oz) SpO2 96% BMI 27.74 kg/m Lab Results Component Value Date WBC 7.48 09/29/2023 HGB 10.6 (L) 09/29/2023 HCT 31.9 (L) 09/29/2023 MCV 88.1 09/29/2023 PLT 175 09/29/2023 Lab Results Component Value Date NA 140 09/29/2023 K 3.4 (L) 09/29/2023 CL 108 09/29/2023 Lab Results Component Value Date INR 1.1 08/11/2019 INR 1.1 06/09/2019 INR 1.0 05/25/2019 PROTIME 13.4 08/11/2019 PROTIME 13.8 06/09/2019 PROTIME 13.2 05/25/2019 Neuro: Awake and alert speech fluent and appropriate PERRL EOMI, Conjugate gaze, No gross nystagmus Face symmetric, Tongue midline Follows commands R side, L hemiplegia Incision CDI * Brianna Baez MD - 09/29/2023 7:33 AM EDT [facility] Inpatient Progress Note 09/29/2023 Johnathan Gonzalez 1975 [id number] Assessment/Plan: Johnathan Gonzalez is a 48 y.o. male with a history of htn, seizures, H/o CVA who presented to [facility] 09/26/2023 for planned cranioplasty with Dr. Rankin(neurosurgery) 09/26/23 and admitted to [facility]. [facility] for [facility] step down management. 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 S/p R cranioplasty by Dr. Rankin(neurosurgery) 09/26/23. CT head 09/26/23 with expected post op fluid and gas, no significant mass defect. ASA held pend neurosurgery recs. NS following. Seizures: Per hx, continued home meds HTN: Per hx, Bp 107/77 on admit. Continued home norvasc Vascular Dementia: IN setting of above. Continued home Rivastigmine, Rexulti, Provera Chronic Pain/Myositis: with history of LLE myositis and wheel chair bound at baseline in setting ofL hemiplegia. 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 Continued home diet([facility] soft w/thin liquids) Code status: full DVT Prophylaxis: lovenox Thank you for allowing us to participate in the care of your patient. For any questions, please call the number of the covering hospitalist listed under the treatment team in care connect. Current living situation: SNF([facility]) Expected Disposition: same Estimated discharge date: 2-3 days pend primary Subjective: Seen and examined. Drain still in place. He has some VILLALTA, but not needing a lot of pain meds. BP stable. Discuss with nursing. Physical Exam: BP (!) 126/93 Pulse 75 Temp 97.8 F (36.6 C) (Oral) Resp 14 Ht 5' 10 Wt 87.7 kg (193 lb 5.5 oz) SpO2 94% BMI 27.74 kg/m General: NAD, dressings clean Eyes: EOMI ENT: neck supple Cardiovascular: Regular rate. Respiratory: Clear to auscultation Gastrointestinal: Soft, non tender Genitourinary: no suprapubic tenderness Musculoskeletal: No edema. Skin: warm, dry Neuro: Alert. R side 4/5. L side hemiplegia. Psych: Mood appropriate. Current Medications: amLODIPine 5 mg Oral QAM atorvastatin 40 mg Oral at bedtime baclofen 5 mg Oral BID brexpiprazole 1 mg Oral QAM DULoxetine 60 mg Oral at bedtime enoxaparin (LOVENOX) injection 40 mg Subcutaneous Daily finasteride 5 mg Oral Daily insulin lispro 0-30 Units Subcutaneous 4x daily levETIRAcetam 500 mg Oral BID medroxyPROGESTERone 10 mg Oral BID melatonin 6 mg Oral Nightly pantoprazole 40 mg Oral QAM polyethylene glycol 17 g Oral Daily senna-docusate 1 tablet Oral BID sodium chloride (PF) 5 mL Intravenous Q8H ELIER tamsulosin 0.4 mg Oral Daily vancomycin 1,500 mg Intravenous Q18H Labs, Imaging and Studies reviewed: Results from last 7 days Lab Units 09/29/23 0433 09/28/23 0401 09/27/23 0309 WBC K/mcL 7.48 8.54 10.85 HGB g/dL 10.6* 11.3* 12.1* HCT % 31.9* 33.9* 37.2* PLT K/mcL 175 170 194 Results from last 7 days Lab Units 09/29/23 0433 09/28/23 0403 09/27/23 0309 SODIUM mmol/L 140 142 141 POTASSIUM mmol/L 3.4* 3.7 4.2 CHLORIDE mmol/L 108 109* 107 BICARB mmol/L BUN mg/dL 7* 10 9 CREATININE mg/dL 0.96 1.14 1.02 EGFR mL/min/1.73 m2 96 78 90 GLUCOSE mg/dL 97 104* 130* PHOSPHORUS mg/dL 3.5 1.9* 3.3 * Dejah Oshea, AURY - 09/28/2023 12:15 PM EDT Neurocritical Care Transfer Note Johnathan Gonzalez is a 48 y.o. male with a PMH of CVA (prior R hemicraniectomy and residual L hemiplegia), Vascular Dementia, Seizure, HTN, HLD, Anxiety/Depression, BPH, and DM2 presented to [place] 09/26/2023 for a planned R cranioplasty with Dr. Rankin. 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 Due to ongoing POA challenges his cranioplasty was delayed, however his brother Eladio is now serving as pt's POA and wishes to undergo surgical repair. Admitted with these risk variables:None. Please see assessment and plan for further details. TRANSFER SUMMARY Significant Procedures: - s/p R cranioplasty with Dr. Rankni (09/25) Stop Dates for Current Temporary Therapies: - none Medication Instructions: - no specific titrations pending Does Neurology need to be consulted upon transfer to the floor? If so, for what? - no Consultative follow-up needed at outpatient: - NSGY Assessment and Plan NEUROLOGIC CVA / Skull Defect - Per history, prior stroke 05/2019 R MCA CVA with malignant edema requiring hemicraniectomy. - POD#2 s/p R cranioplasty with Dr. Rankin (09/25) - CTH 09/25 1500hrs post-op cranioplasty on R with some expected post op fluid/gas bubbles beneath the cranioplasty flap. No mass effect noted. Large chronic R MCA infarct, stable. No mass effect, hydro, or post op hemorrhage. - Resume home Statin & ASA when cleared by NSGY post op - ANDRE drain in place, management per NSGY - PRNs ordered for post op pain management - PT/OT Seizure - Per history - Continue home Keppra 500 BID - Depakote noted on med history but per ECF records and KHADIJAH no longer taking Anxiety/Depression - Per history - Continue home Cymbalta Vascular Dementia - Per history - Continue home Rivastigmine, Rexulti, Provera Chronic pain / Myositis - History of LLE myositis and wheelchair bound at baseline with L hemiplegia - Continue home Baclofen - Per ECF and KHADIJAH records pt no longer taking Neurontin - Continue home bowel regimen (Miralax) - PRNs for post op pain control available CARDIOVASCULAR HTN - Per history - Continue home Norvasc HLD - Per history - Continue home statin Rhythm and BP stable. PULMONARY Protecting airway and oxygenating appropriately on room air. RENAL SNa 142, K 3.7, SCr 1.14 / BUN [address]. BPH - Per history - Continue home Proscar, Flomax HEMATOLOGIC Hgb 11.3 / HCT 33.9, Plt 170, INR - - ID Afebrile Tm < 99.5, WBC 8.54 ENDOCRINE DM2 - Per history - A1c 5.3 05/2019 -- recheck 5.1 (09/27/2023) - Glucose goal 80 - 180 - SSI ordered GI / HEPATIC ADAT post op, BR ordered Dysphagia - Secondary to R MCA stroke, present prior to admission - Resume modified diet (mech soft with thin liquids) GERD - Per history - Continue home PPI PROPHYLAXIS SCDs, Home PPI, and SQ Lovenox CODE STATUS / FAMILY Full code Plan discussed with [facility] attending Dr. Waller. Dejah Oshea CNP Neurocritical Care Subjective / Events: Pt doing well this AM sitting up in bed. No complaints from overnight. Hemodynamically and clinically stable to transfer out of [facility]. Review of Systems: [x] CV, Resp, GI, Neuro, and all other systems reviewed and negative other than listed above. [] Unable to obtain review of systems due to intubation, critically ill condition, and/or neurologic status. Past Medical, Surgical and Social History: Medical History: Past Medical History: Diagnosis Date Arthritis Diabetes mellitus (HCC) Hypertension MRSA (methicillin resistant Staphylococcus aureus) Seizures (HCC) Stroke (HCC) Syncope Surgical History: Past Surgical History: Procedure Laterality Date BRONCHOSCOPY N/A 06/09/2019 Procedure: BRONCHOSCOPY with tracheostomy; Surgeon: Luc Rodas MD; Location: [facility] Endo; Service: General Surgery CRANIECTOMY Right 05/26/2019 Procedure: right hemiCRANIECTOMY; Surgeon: Wilton Rankin MD; Location: [facility] NEURO OR; Service: Neurological CRANIOPLASTY Right 09/26/2023 Procedure: RIGHT CRANIOPLASTY. *PERIOPERATIVE GLYCEMIC PROTOCOL*; Surgeon: Wilton Rankin MD; Location: [facility] NEURO OR; Service: Neurological EGD N/A 06/09/2019 Procedure: ESOPHAGOGASTRODUODENOSCOPY with percutaneous endoscopic gastrostomy tube placement; Surgeon: Luc Farmer MD; Location: [facility] Endo; Service: Gastroenterology Family History: History reviewed. No pertinent family history. Social History: Social History Socioeconomic History Marital status: Tobacco Use Smoking status: Former Smokeless tobacco: Current Types: Snuff Substance and Sexual Activity Alcohol use: Yes Alcohol/week: 12.0 standard drinks of alcohol Types: 12 Cans of beer per week Comment: per week Drug use: Not Currently Allergies and Medications: Allergies: No Known Allergies Hospital medications reviewed. Home medications: Prior to Admission medications Medication Sig Start Date End Date Taking? Authorizing Provider acetaminophen (TYLENOL) 325 MG tablet Take 2 (two) tablets (650 mg total) by mouth every 4 (four) hours as needed for pain Reasons: pain. Yes Betina Madsen MD amLODIPine (NORVASC) 5 MG tablet Take 1 (one) tablet (5 mg total) by mouth every morning . Yes Betina Madsen MD aspirin 81 MG EC tablet Take 1 (one) tablet (81 mg total) by mouth daily . Yes Betina Madsen MD atorvastatin (LIPITOR) 40 MG tablet Take 1 (one) tablet (40 mg total) by mouth at bedtime . Yes Betina Madsen MD baclofen 5 mg Tab Take 1 (one) tablet (5 mg total) by mouth 2 (two) times a day . Yes Betina Madsen MD brexpiprazole (Rexulti) 1 mg Tab Take 1 (one) tablet (1 mg total) by mouth every morning . Yes Betina Madsen MD DULoxetine (CYMBALTA) 60 MG capsule Take 1 (one) capsule (60 mg total) by mouth at bedtime . Yes Betina Madsen MD finasteride (PROSCAR) 5 mg tablet Take 1 (one) tablet (5 mg total) by mouth daily . Yes Betina Madsen MD levETIRAcetam (KEPPRA) 500 MG tablet Take 1 (one) tablet (500 mg total) by mouth 2 (two) times a day . Yes Betina Madsen MD medroxyPROGESTERone (PROVERA) 10 MG tablet Take 1 (one) tablet (10 mg total) by mouth 2 (two) timesa day . Yes Betina Madsen MD melatonin 3 mg Tab Take 2 (two) tablets (6 mg total) by mouth nightly . Yes Betina Madsen MD ondansetron (ZOFRAN-ODT) 4 MG disintegrating tablet Dissolve 1 (one) tablet (4 mg total) on top of tongue every 6 (six) hours as needed . 10/14/19 09/26/23 Yes Romario Fatima DO pantoprazole (PROTONIX) 40 MG tablet Take 1 (one) tablet (40 mg total) by mouth every morning . YesBetina Madsen MD polyethylene glycol (MIRALAX) 17 gram powder Take 17 (seventeen) g by mouth daily . Yes Betina Madsen MD tamsulosin (FLOMAX) 0.4 mg capsule Take 1 (one) capsule (0.4 mg total) by mouth daily . Yes Betina Madsen MD albuterol 90 mcg/actuation inhaler Inhale 2 (two) puffs every 6 (six) hours as needed for wheezing . Betina Madsen MD atorvastatin (LIPITOR) 80 MG tablet Take 1 (one) tablet (80 mg total) by mouth nightly . 10/14/19 09/26/23 Romario Fatima DO divalproex (Depakote Sprinkles) 125 mg delayed release (DR) capsule Take 4 (four) capsules (500 mg total) by mouth 3 (three) times a day . Betina Madsen MD famotidine (PEPCID) 20 MG tablet Take 1 (one) tablet (20 mg total) by mouth nightly . 10/14/19 09/26/23 Romario Fatima, DO gabapentin (NEURONTIN) 300 MG capsule Take 3 (three) capsules (900 mg total) by mouth every 8 (eight) hours for 3 days . 10/14/19 09/26/23 Romario Fatima DO melatonin 5 mg Tab Take 1 (one) tablet (5 mg total) by mouth nightly as needed (insomnia) . 10/14/19 09/26/23 Romario Fatima, DO menthol 4 % Gel Apply topically 2 (two) times a day as needed (knees/shoulders) . ProviderBetina MD potassium chloride (MICRO-K) 10 MEQ CR capsule Take 1 (one) capsule (10 mEq total) by mouth daily .Betina Madsen MD RIVASTIGMINE TARTRATE ORAL Take 6 mg by mouth 2 (two) times a day . Betina Madsen MD simethicone (MYLICON,GAS-X) 180 mg capsule Take 1 (one) capsule (180 mg total) by mouth 3 (three) times a day . ProviderBetina MD Exam Vital Signs: Temp: [98.6 F (37 C)-99.8 F (37.7 C)] 99.8 F (37.7 C) Heart Rate: [76-97] 80 Resp: [12-18] 15 BP: (107-156)/(77-107) 117/88 I/O last 3 completed shifts: In: 1964.3 [P.O.:200; I.V.:764.8; IV Piggyback:999.6] Out: 2217 [Urine:1650; Drains:567] General: Alert and appears comfortable on RA.Flat affect. Head/Neck: Head - right cranial dressing shadowed with serosanguineous drainage. ANDRE x1 with sanguineous output. Eyes - Sclerae anicteric. Ears - External ears normal. Nose: Normal. Mouth - MMM. Neck - trachea is midline. Cardiovascular: Regular rate and rhythm. No clicks, rubs, murmurs, or gallops noted. Peripheral extremity pulses are palpable. Respiratory: Respiratory effort unlabored without accessory muscle use. Lung sounds clear to ascultation bilaterally without wheezes, rales, or rhonchi. Abdominal: Rounded, soft, nondistended, nontender, decreased bowel sounds. Musculoskeletal: No obvious long bone deformity. Extremities: Well perfused. No clubbing, cyanosis, or edema noted. Neurological: Awake and alert, oriented to name, place, and time. Gaze conjugate, EOMI. PERRL @ 3mm. Speech clear and appropriate. Minimal left facial weakness. Tongue midline. Motor strength 5/5 to RUE/RLE. Left hemiplegia. Skin: Normal turgor, well-hydrated, no diffuse rash appreciated. Clinical Data: [x] Lab, Micro data reviewed. [x] Most recent imaging reviewed. No results for input(s): PHART, KPB4VGR, PO2ART, Q8OLGDJY, RESPRATE, TIDALVOL, PEEP, A3AOZPQH in the last 72 hours. Recent Labs 09/27/23 0309 09/28/23 0401 WBC 10.85 8.54 HGB 12.1* 11.3* PLT 194 170 Recent Labs 09/27/23 0309 09/28/23 0401 09/28/23 0403 NA 141 -- 142 K 4.2 -- 3.7 CL 107 -- 109* BICARB -- BUN 9 -- 10 CREATININE 1.02 -- 1.14 GLUCOSE 130* -- 104* PHOS 3.3 -- 1.9* MG 2.2 -- 1.9 KATHY 4.9 4.8 -- Lab Results Component Value Date LACTICACID 0.7 06/04/2019 LACTICACID 0.7 06/03/2019 LACTICACID 0.7 06/03/2019 No results for input(s): INR, PTT in the last 72 hours. Labs Last Refreshed: CBC - 09/28/2023, BMP - 09/28/2023, CMP - - -, Coag - 08/11/2019 Associated attestation - Robbi Waller MD - 09/28/2023 12:49 PM EDT I have independently examined and reviewed this case and discussed the assessment and plan of care with the BERYL. The BERYL completed the initial history taking and physical examination. The assessment and plan were coordinated with myself and I independently completed a separate history and physical examination in a face to face encounter. I agree with the assessment and plan as provided in the note with clarifications/exceptions noted below. Patient seen and examined on rounds today. He is sitting up and eating breakfast and at his neurologic baseline with left face/arm/leg chronic weakness. He has no new complaints. POD2 cranioplasty, awaiting transfer to floor. Robbi Waller MD, DS, FNCS Neurocritical Care 09/28/23 12:48 PM * Marissa Dubon RPh,PharmD - 09/28/2023 10:57 AM EDT PHARMACOTHERAPY NOTE: Antimicrobial Therapy Follow-up Assessment / Plan: Johnathan Gonzalez is a 48 y.o. male on Vancomycin for prophylaxis post cranioplasty, continuing for duration of drain placement per neurosurgery . Vancomycin goal AUC is 400-600 mcg h/mL. Current regimen of Vancomycin 1500mg q18h will provide a predicted AUC of 566 mcg h/mL and trough of 17 mcg/ml. Will continue current Vancomycin dose. Pharmacy will continue to follow, monitor serum creatinine levels and urine output (if available) daily, order levels, and make adjustments as clinically appropriate. Subjective/Objective: Wt Readings from Last 1 Encounters: 09/28/23 93.3 kg (205 lb 11 oz) Dulce body weight: 73 kg (160 lb 15 oz) Adjusted ideal body weight: 81.1 kg (178 lb 13.4 oz) Labs include: WBC (K/mcL) Date Value 09/28/2023 8.54 Creatinine (mg/dL) Date Value 09/28/2023 1.14 07/01/2019 0.7 Estimated Creatinine Clearance: 80 mL/min (by C-G formula based on SCr of 1.14 mg/dL). Patient Tmax (last 24 hours): 99.4 F Pharmacist: Marissa Dubon RPh,PharmD Contact Number: secure chat * Mark Hillman DO - 09/28/2023 9:27 AM EDT Neurosurgery Note: A/P: S/p craniectomy Hx R MCA CVA -s/p POD 2 Cranioplasty for skull defect w/ Dr Rankin -Drain: 160 cc ovn. Maintain for now -Post-op HCT w/ expected post op changes -Vitals reviewed -Labs reviewed -Medications reviewed -Neuro exam -Neuro checks -HOB to 30 -Advance diet and activities as tolerated -BP control -Pain control -Keppra x 7 days -Follow drain output, maintain drains for now -Chemical DVT prophylaxis ok 24hrs after stable HCT Admitted with these risk variables:Diabetes, Acute Glycemic Conditions. Please see assessment and plan for further details. S: Seen and examined in [facility]. O: Current: BP (!) 132/91 Pulse 76 Temp 98.8 F (37.1 C) (Oral) Resp 17 Ht 5' 10 Wt 93.3 kg (205 lb 11 oz) SpO2 97% BMI 29.51 kg/m Lab Results Component Value Date WBC 8.54 09/28/2023 HGB 11.3 (L) 09/28/2023 HCT 33.9 (L) 09/28/2023 MCV 87.6 09/28/2023 PLT 170 09/28/2023 Lab Results Component Value Date NA 142 09/28/2023 K 3.7 09/28/2023 CL 109 (H) 09/28/2023 Lab Results Component Value Date INR 1.1 08/11/2019 INR 1.1 06/09/2019 INR 1.0 05/25/2019 PROTIME 13.4 08/11/2019 PROTIME 13.8 06/09/2019 PROTIME 13.2 05/25/2019 Neuro: Awake and alert speech fluent and appropriate PERRL EOMI, Conjugate gaze, No gross nystagmus Face symmetric, Tongue midline Follows commands R side, L hemiplegia Incision CDI Associated attestation - Bobby Deng MD - 09/28/2023 10:09 AM EDT Patient seen and examined myself. I agree with the exam, assessment and plan as described below. Relevant labs and diagnostic studies reviewed. Will continue drain. Expected to have high output given nature of surgery. * Brianna Baez MD - 09/28/2023 7:11 AM EDT [facility] Inpatient Progress Note 09/28/2023 Johnathan Gonzalez [id number] Assessment/Plan: Johnathan Gonzalez is a 48 y.o. male with a history of htn, seizures, H/o CVA who presented to [facility] 09/26/2023 for planned cranioplasty with Dr. Rankin(neurosurgery) 09/26/23 and admitted to [facility]. Marco Antonio consulted for [facility] step down management. 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 S/p R cranioplasty by Dr. Rankin(neurosurgery) 09/26/23. CT head 09/26/23 with expected post op fluid and gas, no significant mass defect. ASA held pend neurosurgery recs. NS following. Seizures: Per hx, continued home meds HTN: Per hx, Bp 107/77 on admit. Continued home norvasc Vascular Dementia: IN setting of above. Continued home Rivastigmine, Rexulti, Provera Chronic Pain/Myositis: with history of LLE myositis and wheel chair bound at baseline in setting ofL hemiplegia. 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 Continued home diet([facility] soft w/thin liquids) Code status: full DVT Prophylaxis: lovenox Thank you for allowing us to participate in the care of your patient. For any questions, please call the number of the covering hospitalist listed under the treatment team in care connect. Current living situation: SNF([facility]) Expected Disposition: same Estimated discharge date: 2-3 days pend primary Subjective: No issues overnight. He slept some. Pain controlled. BP stable. Diet started. Physical Exam: BP (!) 132/91 Pulse 76 Temp 98.6 F (37 C) (Oral) Resp 17 Ht 5' 10 Wt 93.3 kg (205 lb 11 oz) SpO2 97% BMI 29.51 kg/m General: NAD, dressings clean Eyes: EOMI ENT: neck supple Cardiovascular: Regular rate. Respiratory: Clear to auscultation Gastrointestinal: Soft, non tender Genitourinary: no suprapubic tenderness Musculoskeletal: No edema. Skin: warm, dry Neuro: Alert. R side 4/5. L side hemiplegia. Psych: Mood appropriate. Current Medications: amLODIPine 5 mg Oral QAM atorvastatin 40 mg Oral at bedtime baclofen 5 mg Oral BID brexpiprazole 1 mg Oral QAM DULoxetine 60 mg Oral at bedtime enoxaparin (LOVENOX) injection 40 mg Subcutaneous Daily finasteride 5 mg Oral Daily insulin lispro 0-30 Units Subcutaneous 4x daily levETIRAcetam 500 mg Oral BID medroxyPROGESTERone 10 mg Oral BID melatonin 6 mg Oral Nightly pantoprazole 40 mg Oral QAM polyethylene glycol 17 g Oral Daily potassium chloride SA 20 mEq Oral Once potassium phosphate 15 mmol in dextrose (D5W) 5% 250 mL IVPB 15 mmol Intravenous Once senna-docusate 1 tablet Oral BID sodium chloride (PF) 5 mL Intravenous Q8H ELIER tamsulosin 0.4 mg Oral Daily vancomycin 1,500 mg Intravenous Q18H Labs, Imaging and Studies reviewed: Results from last 7 days Lab Units 09/28/23 0401 09/27/23 0309 WBC K/mcL 8.54 10.85 HGB g/dL 11.3* 12.1* HCT % 33.9* 37.2* PLT K/mcL 170 194 Results from last 7 days Lab Units 09/28/23 0403 09/27/23 0309 SODIUM mmol/L 142 141 POTASSIUM mmol/L 3.7 4.2 CHLORIDE mmol/L 109* 107 BICARB mmol/L 23 23 BUN mg/dL 10 9 CREATININE mg/dL 1.14 1.02 EGFR mL/min/1.73 m2 78 90 GLUCOSE mg/dL 104* 130* PHOSPHORUS mg/dL 1.9* 3.3 * Jackie Vaughn RN - 09/27/2023 11:15 AM EDT Anesthesia Progress Note 1 Day Post-Op Procedure(s): RIGHT CRANIOPLASTY. *PERIOPERATIVE GLYCEMIC PROTOCOL* Comment: Pt asleep @ time of visit. Chart review shows pt alert and oriented x 4, SHEBA x 4. No c/o post op nausea, vomiting noted. Temp: [36.1 C-37.2 C] 37.2 C Heart Rate: [72-100] 89 Resp: [8-18] 12 BP: (88-124)/(53-95) 110/75 SpO2: [95 %-100 %] 98 % * Marci Pedraza RPh,PharmD - 09/27/2023 10:30 AM EDT PHARMACOTHERAPY NOTE: Antimicrobial Quick Note Due to today's clinical assessment, Vancomycin will be changed to 1500 q18h. Will plan for next Vancomycin serum concentration if needed. Pharmacist: Marci Pedraza RPh,PharmD, BCCCP Contact Number: Vocera * Donovan Trimble CNP - 09/27/2023 8:43 AM EDT Neurocritical Care Progress Note Johnathan Gonzalez is a 48 y.o. male with a PMH of CVA (prior R hemicraniectomy and residual L hemiplegia), Vascular Dementia, Seizure, HTN, HLD, Anxiety/Depression, BPH, and DM2 presented to [place] 09/26/2023 for a planned R cranioplasty with Dr. Rankin. 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 Due to ongoing POA challenges his cranioplasty was delayed, however his brother Eladio is now serving as pt's POA and wishes to undergo surgical repair. Admitted with these risk variables:None. Please see assessment and plan for further details. TRANSFER SUMMARY Significant Procedures: - s/p R cranioplasty with Dr. Rankin (09/25) Stop Dates for Current Temporary Therapies: - none Medication Instructions: - no specific titrations pending Does Neurology need to be consulted upon transfer to the floor? If so, for what? - no Consultative follow-up needed at outpatient: - NSGY Assessment and Plan NEUROLOGIC CVA / Skull Defect - Per history, prior stroke 05/2019 R MCA CVA with malignant edema requiring hemicraniectomy. - POD#1 s/p R cranioplasty with Dr. Rankin (09/25) - CTH 09/25 1500hrs post-op cranioplasty on R with some expected post op fluid/gas bubbles beneath the cranioplasty flap. No mass effect noted. Large chronic R MCA infarct, stable. No mass effect, hydro, or post op hemorrhage. - Resume home Statin & ASA when cleared by NSGY post op - ANDRE drain in place, management per NSGY - PRNs ordered for post op pain management - PT/OT Seizure - Per history - Continue home Keppra 500 BID - Depakote noted on med history but per ECF records and KHADIJAH no longer taking Anxiety/Depression - Per history - Continue home Cymbalta Vascular Dementia - Per history - Continue home Rivastigmine, Rexulti, Provera Chronic pain / Myositis - History of LLE myositis and wheelchair bound at baseline with L hemiplegia - Continue home Baclofen - Per ECF and KHADIJAH records pt no longer taking Neurontin - Continue home bowel regimen (Miralax) - PRNs for post op pain control available CARDIOVASCULAR HTN - Per history - Continue home Norvasc HLD - Per history - Continue home statin Rhythm and BP stable. PULMONARY Protecting airway and oxygenating appropriately on room air. RENAL SNa 141, K 4.2, SCr 1.02 / BUN [address]. BPH - Per history - Continue home Proscar, Flomax HEMATOLOGIC Hgb 12.1 / HCT 37.2, Plt 194, INR - - ID Afebrile Tm < 99.5, WBC 10.85 ENDOCRINE DM2 - Per history - A1c 5.3 05/2019 -- recheck 11/05 (09/27/2023) - Glucose goal 80 - 180 - SSI ordered GI / HEPATIC ADAT post op, BR ordered Dysphagia - Secondary to R MCA stroke, present prior to admission - Resume modified diet (mech soft with thin liquids) GERD - Per history - Continue home PPI PROPHYLAXIS SCDs, Home PPI, and SQ Lovenox CODE STATUS / FAMILY Full code Plan discussed with [facility] attending Dr. Waller. Donovan Trimble, PHYSICAL THERAPY DIRECTOR Neurocritical Care Subjective / Events: Pt doing well this AM sitting up in bed. Review of Systems: [x] CV, Resp, GI, Neuro, and all other systems reviewed and negative other than listed above. [] Unable to obtain review of systems due to intubation, critically ill condition, and/or neurologic status. Past Medical, Surgical and Social History: Medical History: Past Medical History: Diagnosis Date Arthritis Diabetes mellitus (HCC) Hypertension MRSA (methicillin resistant Staphylococcus aureus) Seizures (HCC) Stroke (HCC) Syncope Surgical History: Past Surgical History: Procedure Laterality Date BRONCHOSCOPY N/A 06/09/2019 Procedure: BRONCHOSCOPY with tracheostomy; Surgeon: Luc Rodas MD; Location: [facility] Endo; Service: General Surgery CRANIECTOMY Right 05/26/2019 Procedure: right hemiCRANIECTOMY; Surgeon: Wilton Rankin MD; Location: [facility] NEURO OR; Service: Neurological CRANIOPLASTY Right 09/26/2023 Procedure: RIGHT CRANIOPLASTY. *PERIOPERATIVE GLYCEMIC PROTOCOL*; Surgeon: Wilton Rankin MD; Location: [facility] NEURO OR; Service: Neurological EGD N/A 06/09/2019 Procedure: ESOPHAGOGASTRODUODENOSCOPY with percutaneous endoscopic gastrostomy tube placement; Surgeon: Luc Farmer MD; Location: [facility]; Service: Gastroenterology Family History: No family history on file. Social History: Social History Socioeconomic History Marital status: Tobacco Use Smoking status: Former Smokeless tobacco: Current Types: Snuff Substance and Sexual Activity Alcohol use: Yes Alcohol/week: 12.0 standard drinks of alcohol Types: 12 Cans of beer per week Comment: per week Drug use: Not Currently Allergies and Medications: Allergies: No Known Allergies Hospital medications reviewed. Home medications: Prior to Admission medications Medication Sig Start Date End Date Taking? Authorizing Provider acetaminophen (TYLENOL) 325 MG tablet Take 2 (two) tablets (650 mg total) by mouth every 4 (four) hours as needed for pain Reasons: pain. Yes Betina Madsen MD amLODIPine (NORVASC) 5 MG tablet Take 1 (one) tablet (5 mg total) by mouth every morning . Yes Betina Madsen MD aspirin 81 MG EC tablet Take 1 (one) tablet (81 mg total) by mouth daily . Yes Betina Madsen MD atorvastatin (LIPITOR) 40 MG tablet Take 1 (one) tablet (40 mg total) by mouth at bedtime . Yes Betina Madsen MD baclofen 5 mg Tab Take 1 (one) tablet (5 mg total) by mouth 2 (two) times a day . Yes Betina Madsen MD brexpiprazole (Rexulti) 1 mg Tab Take 1 (one) tablet (1 mg total) by mouth every morning . Yes Betina Madsen MD DULoxetine (CYMBALTA) 60 MG capsule Take 1 (one) capsule (60 mg total) by mouth at bedtime . Yes Betina Madsen MD finasteride (PROSCAR) 5 mg tablet Take 1 (one) tablet (5 mg total) by mouth daily . Yes Betina Madsen MD levETIRAcetam (KEPPRA) 500 MG tablet Take 1 (one) tablet (500 mg total) by mouth 2 (two) times a day . Yes Betina Madsen MD medroxyPROGESTERone (PROVERA) 10 MG tablet Take 1 (one) tablet (10 mg total) by mouth 2 (two) timesa day . Yes Betina Madsen MD melatonin 3 mg Tab Take 2 (two) tablets (6 mg total) by mouth nightly . Yes Betina Madsen MD ondansetron (ZOFRAN-ODT) 4 MG disintegrating tablet Dissolve 1 (one) tablet (4 mg total) on top of tongue every 6 (six) hours as needed . 10/14/19 09/26/23 Yes Romario Fatima, pantoprazole (PROTONIX) 40 MG tablet Take 1 (one) tablet (40 mg total) by mouth every morning . YesBetina Madsen MD polyethylene glycol (MIRALAX) 17 gram powder Take 17 (seventeen) g by mouth daily . Yes Betina Madsen MD tamsulosin (FLOMAX) 0.4 mg capsule Take 1 (one) capsule (0.4 mg total) by mouth daily . Yes Betina Madsen MD albuterol 90 mcg/actuation inhaler Inhale 2 (two) puffs every 6 (six) hours as needed for wheezing . Betina Madsen MD atorvastatin (LIPITOR) 80 MG tablet Take 1 (one) tablet (80 mg total) by mouth nightly . 10/14/19 09/26/23 Romario Fatima DO divalproex (Depakote Sprinkles) 125 mg delayed release (DR) capsule Take 4 (four) capsules (500 mg total) by mouth 3 (three) times a day . Betina Madsen MD famotidine (PEPCID) 20 MG tablet Take 1 (one) tablet (20 mg total) by mouth nightly . 10/14/19 09/26/23 Romario Fatima DO gabapentin (NEURONTIN) 300 MG capsule Take 3 (three) capsules (900 mg total) by mouth every 8 (eight) hours for 3 days . 10/14/19 09/26/23 Romario Fatima DO melatonin 5 mg Tab Take 1 (one) tablet (5 mg total) by mouth nightly as needed (insomnia) . 10/14/19 09/26/23 Romario Fatima DO menthol 4 % Gel Apply topically 2 (two) times a day as needed (knees/shoulders) . Betina Madsen MD potassium chloride (MICRO-K) 10 MEQ CR capsule Take 1 (one) capsule (10 mEq total) by mouth daily .Betina Madsen MD RIVASTIGMINE TARTRATE ORAL Take 6 mg by mouth 2 (two) times a day . Betina Madsen MD simethicone (MYLICON,GAS-X) 180 mg capsule Take 1 (one) capsule (180 mg total) by mouth 3 (three) times a day . Betina Madsen MD Exam Vital Signs: Temp: [97 F (36.1 C)-99 F (37.2 C)] 99 F (37.2 C) Heart Rate: [72-100] 80 Resp: [8-18] 9 BP: (88-130)/(53-95) 123/83 I/O last 3 completed shifts: In: 1225.4 [P.O.:200; I.V.:525.7; IV Piggyback:499.8] Out: 1670 [Urine:1270; Drains:300; Blood:100] General: Alert and appears comfortable on RA. Head/Neck: Head - right cranial dressing shadowed with serosanguineous drainage. ANDRE x1 with sanguineous output. Eyes - Sclerae anicteric. Ears - External ears normal. Nose: Normal. Mouth - MMM. Neck - trachea is midline. Cardiovascular: Regular rate and rhythm. No clicks, rubs, murmurs, or gallops noted. Peripheral extremity pulses are palpable. Respiratory: Respiratory effort unlabored without accessory muscle use. Lung sounds clear to ascultation bilaterally without wheezes, rales, or rhonchi. Abdominal: Rounded, soft, nondistended, nontender, decreased bowel sounds. Musculoskeletal: No obvious long bone deformity. Extremities: Well perfused. No clubbing, cyanosis, or edema noted. Neurological: Awake and alert, oriented to name, place, and time. Gaze conjugate, EOMI. PERRL @ 3mm. Speech clear and appropriate. Minimal left facial weakness. Tongue midline. Motor strength 5/5 to RUE/RLE. Left hemiplegia. Skin: Normal turgor, well-hydrated, no diffuse rash appreciated. Clinical Data: [x] Lab, Micro data reviewed. [x] Most recent imaging reviewed. No results for input(s): PHART, FKR1EMH, PO2ART, Z0SXSHNW, RESPRATE, TIDALVOL, PEEP, T3JNXDUA in the last 72 hours. Recent Labs 09/27/23 0309 WBC 10.85 HGB 12.1* PLT 194 Recent Labs 09/27/23 0309 NA 141 K 4.2 CL 107 BICARB 23 BUN 9 CREATININE 1.02 GLUCOSE 130* PHOS 3.3 MG 2.2 KATHY 4.9 Lab Results Component Value Date LACTICACID 0.7 06/04/2019 LACTICACID 0.7 06/03/2019 LACTICACID 0.7 06/03/2019 No results for input(s): INR, PTT in the last 72 hours. Labs Last Refreshed: CBC - 09/27/2023, BMP - 09/27/2023, CMP - - -, Coag - 08/11/2019 Associated attestation - Robbi Waller MD - 09/27/2023 3:46 PM EDT I have independently examined and reviewed this case and discussed the assessment and plan of care with the BERYL. The BERYL completed the initial history taking and physical examination. The assessment and plan were coordinated with myself and I independently completed a separate history and physical examination in a face to face encounter. I agree with the assessment and plan as provided in the note with clarifications/exceptions noted below. Patient seen and examined on rounds today. He is POD1 from cranioplasty by Dr. Rankin. He reportsmild incisional pain. His neurologic exam is at baseline with left facial weakness and LUE and LLE hemiplegia. Flat affect. Depression -Continue Cymbalta, supportive care Seizure -No active seizures, continue Keppra based on history. Robbi Waller MD, DS, FNCS Neurocritical Care 09/27/23 3:44 PM * Vincent Oliveira, DO - 09/27/2023 6:53 AM EDT Neurosurgery Note: A/P: S/p craniectomy Hx R MCA CVA -s/p POD 1 Cranioplasty for skull defect w/ Dr Rankin -Drain: 70/150cc -Post-op HCT w/ expected post op changes -Vitals reviewed -Labs reviewed -Medications reviewed -Neuro exam -Neuro checks -HOB to 30 -Advance diet and activities as tolerated -BP control -Pain control -Keppra x 7 days -Follow drain output, maintain drains for now -Chemical DVT prophylaxis ok 24hrs after stable HCT Admitted with these risk variables:Diabetes, Acute Glycemic Conditions. Please see assessment and plan for further details. S: Seen and examined in NCC. O: Current: BP 123/83 Pulse 80 Temp 98.9 F (37.2 C) (Oral) Resp (!) 9 Ht 5' 10 Wt 89 kg (196 lb 3.4 oz) SpO2 94% BMI 28.15 kg/m Lab Results Component Value Date WBC 10.85 09/27/2023 HGB 12.1 (L) 09/27/2023 HCT 37.2 (L) 09/27/2023 MCV 88.4 09/27/2023 PLT 194 09/27/2023 Lab Results Component Value Date NA 141 09/27/2023 K 4.2 09/27/2023 CL 107 09/27/2023 Lab Results Component Value Date INR 1.1 08/11/2019 INR 1.1 06/09/2019 INR 1.0 05/25/2019 PROTIME 13.4 08/11/2019 PROTIME 13.8 06/09/2019 PROTIME 13.2 05/25/2019 Neuro: Awake and alert speech fluent and appropriate PERRL EOMI, Conjugate gaze, No gross nystagmus Face symmetric, Tongue midline Follows commands R side, L hemiplegia Incision CDI Associated attestation - Wilton Rankin MD - 09/27/2023 11:05 AM EDT Images from the original note were not included. I have seen and examined the patient independently. I have reviewed all relevant laboratory and imaging studies. I agree with the assessment below. No acute events overnight. Incisional pain is under good control. Neurologically unchanged. Mobilize. Transfer out of neuro ICU. Wilton Rankin MD, FAANS * Lacy Samson RN - 09/26/2023 3:22 PM EDT Pt in CT at this time documented in this [id number] Note* Plan of Care - Sudeep Parry RN - 10/02/2023 2:11 AM EDT Problem: Actual or potential alteration in health Goal: Absence of healthcare acquired conditions Outcome: Partially Met Goal: Knowledge of Interdisciplinary Plan of Care Outcome: Partially Met Goal: Knowledge of Enviroment Outcome: Partially Met Problem: Pain Goal: Manage acute pain Outcome: Partially Met Goal: Manage chronic pain Outcome: Partially Met Goal: Reduced pain sensation Outcome: Partially Met Goal: Achievement of comfort function goal Outcome: Partially Met Problem: Pressure Ulcer - Risk of Goal: Absence of pressure ulcer Outcome: Partially Met Problem: Falls, Risk of Goal: Absence of falls Outcome: Partially Met Problem: Infection Risk, Urinary Catheter-Associated Goal: Absence of catheter associated urinary tract infection Outcome: Partially Met [id number] Note* Plan of Care - Sudeep Ya RN - 10/01/2023 4:08 AM EDT Problem: Actual or potential alteration in health Goal: Absence of healthcare acquired conditions Outcome: Partially Met Goal: Knowledge of Interdisciplinary Plan of Care Outcome: Partially Met Goal: Knowledge of Enviroment Outcome: Partially Met Problem: Pain Goal: Manage acute pain Outcome: Partially Met Goal: Manage chronic pain Outcome: Partially Met Goal: Reduced pain sensation Outcome: Partially Met Goal: Achievement of comfort function goal Outcome: Partially Met Problem: Pressure Ulcer - Risk of Goal: Absence of pressure ulcer Outcome: Partially Met Problem: Falls, Risk of Goal: Absence of falls Outcome: Partially Met Problem: Infection Risk, Urinary Catheter-Associated Goal: Absence of catheter associated urinary tract infection Outcome: Partially Met [id number] Consult note* Halima Sommers, OT - 09/30/2023 12:03 PM EDT Occupational Therapy OCCUPATIONAL THERAPY EVALUATION Skilled Therapy Needs After Discharge Anticipate Resolution of Current Assessment Limitations Including: Mechanical Barriers Are Skilled Therapy Services Needed After Discharge: Yes Intensity of Skilled Therapy: Up to 5 days per week Anticipated Duration of Skilled Therapy: Duration 10 - 30 days DME Recommendation: To be determined at next level of care Rehab Potential: Good Outcomes Measures Prior Function Daily Activity Raw Score: 16 Prior Function Daily Activity % Impaired: 53.32% AM-PAC Daily Activity Raw Score: 6 AM-PAC Daily Activity % Impaired: 100% Occupational Therapy Assessment The patient's current functional participation deficits are feeding, grooming, UE dressing, LE dressing, bathing, toileting, hobbies, functional mobility. This reduced independence will limit their life roles of premorbid level individual. The patient's co morbidities do significantly affect patient performance in the above activities and roles. The performance deficits are a result of musculoskeletal, neurological impairment(s) in generalized debility including strength, range of motion, balance, dexterity, coordination, proprioception, L inattention, acitvity tolerance, respiratory capacity, sensation, memory, sequencing, problem solving, and knowledge deficit. The patient's family / caregiver support is a dietitian for return to prior level of function. The patient's awareness of own capacity and performance is a barrier to return to prior level of function. During the assessment, significant modification of task was required and multiple treatment optionswere identified in the plan of care. This consultation required extensive review of the medical and therapy history. Activity Tolerance Activity Tolerance: Tolerates 20 - 30 min activity with multiple rests Therapy Precautions General Rehab Precautions: Fall risk, Seizure Cognition Overall Cognitive Status: Within Functional Limits Arousal/Alertness: Appropriate responses to stimuli Orientation Level: Oriented X4 Executive functioning: Min impairment Safety Judgment: Good awareness of safety precautions Problem Solving: Assistance required to identify errors made, Assistance required to generate solutions Attention: Attends to quiet environment Hearing Status: WFL Social Interaction: Appropriate, Cooperative Comments: Patient demonstrates the ability to follow one step commands appropriately. Suspect shortterm memory deficits at baseline. ADL IADL Bed Mobility Rolling: Maximal assist, Dependent Supine to Sit: Dependent, 2 person assist Sit to Supine: Dependent, 2 person assist Functional Transfers Additional Assessment Details Home Living Obtained Home Living and PLOF info from: Patient Type of Home: [facility] care facility Home Layout: One level Steps to enter home: No Bathroom Shower/Tub: Walk-in shower Bathroom Equipment: Shower chair Mobility Equipment: Wheelchair - manual Additional Objective Details - Home Living: he is able to propel his w/c with RLE/RUE Prior Level of Function Level of [place] - Transfers/Ambulation/Mobility: Needs mobility assistance/device, Needs wheelchair mobility assistance Level of [place] - ADLs: Needs assistance Bathing: Maximal assist Dressing: Maximal assist Toileting: Total assist Grooming: Set up assist Feeding: Set up assist Level of [place] - Homemaking: (does not perform) Driving: Patient does not drive Past Medical History: Diagnosis Date Arthritis Diabetes mellitus (HCC) Hypertension MRSA (methicillin resistant Staphylococcus aureus) Seizures (HCC) Stroke ([facility]) Syncope Past Surgical History: Procedure Laterality Date BRONCHOSCOPY N/A 06/09/2019 Procedure: BRONCHOSCOPY with tracheostomy; Surgeon: Luc Rodas MD; Location: [facility] Endo; Service: General Surgery CRANIECTOMY Right 05/26/2019 Procedure: right hemiCRANIECTOMY; Surgeon: Wilton Rankin MD; Location: [facility] NEURO OR; Service: Neurological CRANIOPLASTY Right 09/26/2023 Procedure: RIGHT CRANIOPLASTY. *PERIOPERATIVE GLYCEMIC PROTOCOL*; Surgeon: Wilton Rankin MD; Location: [facility] NEURO OR; Service: Neurological EGD N/A 06/09/2019 Procedure: ESOPHAGOGASTRODUODENOSCOPY with percutaneous endoscopic gastrostomy tube placement; Surgeon: Luc Farmer MD; Location: [facility] Endo; Service: Gastroenterology For complete objective data, detailed plan of care and patient education refer to: OT Evaluation flowsheet, OT Evaluation and Treatment flowsheet, OT Treatment flowsheet, patient Plan of Care, Plan of Care progress note, and Patient Education. This note stands as the current Discharge Summary upon patient discharge from the hospital or completion of Occupational Therapy Plan of Care. [id number] Consult note* Halima Sommers OT - 09/30/2023 12:03 PM EDT Occupational Therapy OCCUPATIONAL THERAPY EVALUATION Skilled Therapy Needs After Discharge Anticipate Resolution of Current Assessment Limitations Including: Mechanical Barriers Are Skilled Therapy Services Needed After Discharge: Yes Intensity of Skilled Therapy: Up to 5 days per week Anticipated Duration of Skilled Therapy: Duration 10 - 30 days DME Recommendation: To be determined at next level of care Rehab Potential: Good Outcomes Measures Prior Function Daily Activity Raw Score: 16 Prior Function Daily Activity % Impaired: 53.32% AM-PAC Daily Activity Raw Score: 6 AM-PAC Daily Activity % Impaired: 100% Occupational Therapy Assessment The patient's current functional participation deficits are feeding, grooming, UE dressing, LE dressing, bathing, toileting, hobbies, functional mobility. This reduced independence will limit their life roles of premorbid level individual. The patient's co morbidities do significantly affect patient performance in the above activities and roles. The performance deficits are a result of musculoskeletal, neurological impairment(s) in generalized debility including strength, range of motion, balance, dexterity, coordination, proprioception, L inattention, acitvity tolerance, respiratory capacity, sensation, memory, sequencing, problem solving, and knowledge deficit. The patient's family / caregiver support is a dietitian for return to prior level of function. The patient's awareness of own capacity and performance is a barrier to return to prior level of function. During the assessment, significant modification of task was required and multiple treatment optionswere identified in the plan of care. This consultation required extensive review of the medical and therapy history. Activity Tolerance Activity Tolerance: Tolerates 20 - 30 min activity with multiple rests Therapy Precautions General Rehab Precautions: Fall risk, Seizure Cognition Overall Cognitive Status: Within Functional Limits Arousal/Alertness: Appropriate responses to stimuli Orientation Level: Oriented X4 Executive functioning: Min impairment Safety Judgment: Good awareness of safety precautions Problem Solving: Assistance required to identify errors made, Assistance required to generate solutions Attention: Attends to quiet environment Hearing Status: WFL Social Interaction: Appropriate, Cooperative Comments: Patient demonstrates the ability to follow one step commands appropriately. Suspect shortterm memory deficits at baseline. ADL IADL Bed Mobility Rolling: Maximal assist, Dependent Supine to Sit: Dependent, 2 person assist Sit to Supine: Dependent, 2 person assist Functional Transfers Additional Assessment Details Home Living Obtained Home Living and PLOF info from: Patient Type of Home: jail care facility Home Layout: One level Steps to enter home: No Bathroom Shower/Tub: Walk-in shower Bathroom Equipment: Shower chair Mobility Equipment: Wheelchair - manual Additional Objective Details - Home Living: he is able to propel his w/c with RLE/RUE Prior Level of Function Level of [place] - Transfers/Ambulation/Mobility: Needs mobility assistance/device, Needs wheelchair mobility assistance Level of [place] - ADLs: Needs assistance Bathing: Maximal assist Dressing: Maximal assist Toileting: Total assist Grooming: Set up assist Feeding: Set up assist Level of [place] - Homemaking: (does not perform) Driving: Patient does not drive Past Medical History: Diagnosis Date Arthritis Diabetes mellitus (HCC) Hypertension MRSA (methicillin resistant Staphylococcus aureus) Seizures (HCC) Stroke (HCC) Syncope Past Surgical History: Procedure Laterality Date BRONCHOSCOPY N/A 06/09/2019 Procedure: BRONCHOSCOPY with tracheostomy; Surgeon: Luc Rodas MD; Location: [facility] Endo; Service: General Surgery CRANIECTOMY Right 05/26/2019 Procedure: right hemiCRANIECTOMY; Surgeon: Wilton Rankin MD; Location: [facility] NEURO OR; Service: Neurological CRANIOPLASTY Right 09/26/2023 Procedure: RIGHT CRANIOPLASTY. *PERIOPERATIVE GLYCEMIC PROTOCOL*; Surgeon: Wilton Rankin MD; Location: [facility] NEURO OR; Service: Neurological EGD N/A 06/09/2019 Procedure: ESOPHAGOGASTRODUODENOSCOPY with percutaneous endoscopic gastrostomy tube placement; Surgeon: Luc Farmer MD; Location: [facility] Endo; Service: Gastroenterology For complete objective data, detailed plan of care and patient education refer to: OT Evaluation flowsheet, OT Evaluation and Treatment flowsheet, OT Treatment flowsheet, patient Plan of Care, Plan of Care progress note, and Patient Education. This note stands as the current Discharge Summary upon patient discharge from the hospital or completion of Occupational Therapy Plan of Care. * Dolores Cain, PT - 09/30/2023 11:56 AM EDT Physical Therapy PHYSICAL THERAPY EVALUATION Skilled Therapy Needs After Discharge Anticipate Resolution of Current Assessment Limitations Including: Mechanical Barriers Are Skilled Therapy Services Needed After Discharge: Yes Intensity of Skilled Therapy: Up to 5 days per week Anticipated Duration of Skilled Therapy: Duration 7 - 10 days DME Recommendation: To be determined at next level of care Rehab Potential: Good, For goals Outcomes Measures Prior Function - Basic Mobility Raw Score: 9 Points Prior Function - Basic Mobility % Impaired: 77.59% AM-PAC Basic Mobility Raw Score: 6 Points AM-PAC Basic Mobility % Impaired: 100% Physical Therapy Assessment History: The following factors influence the patient's participation in the PT plan of care: Personal Factors: Limited Baseline Mobility, Decreased Insight Environmental Factors: Other (comment) (from LTC facility) The following co-morbidities (from this admission or prior) influence the patient's participation in this plan of care: PMH of htn, seizures, H/o CVA who presented to [facility] 09/26/2023 for planned cranioplasty for skull defect with Dr. Rankin(neurosurgery) 09/26/23 Number of History elements affecting this patient's PT plan of care: 3 or more Examination of Body Systems: The patient presents with: Musculoskeletal impairments: Strength, ROM, Pain, Functional Endurance Neurologic Impairments: Coordination, Balance, Paralysis, Cognition, Vision Cardiopulmonary Impairments: Activity Tolerance Vascular Impairments: Sensation. These impairments result in limitations of Functional Transfers, Safety, Safety Awareness, Wheelchair Mobility, Activity Tolerance. These impairments result in restrictions of Household mobility. Number of Body Systems elements affecting this patient's PT plan of care: 4 or more. Clinical Presentation: The patient's clinical presentation for this PT evaluation is with unstable and unpredictable characteristics as evidenced by current PT documentation. Activity Tolerance Activity Tolerance: Tolerates 20 - 30 min activity with multiple rests Therapy Precautions Orthotic Devices: No Weight Bearing Status: WFL General Rehab Precautions: Seizure, Fall risk Balance Assessment Sitting Balance - Static: Maximal assist Loss of Balance - Sitting Static: posterior, right Sitting Balance - Dynamic: Maximal assist Loss of Balance - Sitting Dynamic: right, posterior Bed Mobility Rolling: Maximal assist, Dependent (Max to the L, Dependent to the R) Supine to Sit: Dependent, 2 person assist Sit to Supine: Dependent, 2 person assist Additional Assessment Details Patient educated on PT POC and anticipated outcomes, purpose of PT in acute care setting, call light safety, and importance of mobility. Patient wheelchair bound. Patient could benefit from further skilled PT to promote functional mobility, safety and independence. Sat EOB for ~8 minutes before fatigue requiring cues to maintain midline. Bed in chair position at end of session, all needs in reach. Home Living Obtained Home Living and PLOF info from: Patient Type of Home: jail care facility Home Layout: One level Steps to enter home: No Bathroom Shower/Tub: Walk-in shower Bathroom Equipment: Shower chair Mobility Equipment: Wheelchair - manual Prior Level of Function Level of [place] - Transfers/Ambulation/Mobility: Needs mobility assistance/device, Needs wheelchair mobility assistance Level of [place] - ADLs: Needs assistance Bathing: Maximal assist Dressing: Maximal assist Toileting: Total assist Grooming: Set up assist Feeding: Set up assist Level of [place] - Homemaking: (does not perform) Driving: Patient does not drive Past Medical History: Diagnosis Date Arthritis Diabetes mellitus (HCC) Hypertension MRSA (methicillin resistant Staphylococcus aureus) Seizures (HCC) Stroke (HCC) Syncope Past Surgical History: Procedure Laterality Date BRONCHOSCOPY N/A 06/09/2019 Procedure: BRONCHOSCOPY with tracheostomy; Surgeon: Luc Rodas MD; Location: [facility] Endo; Service: General Surgery CRANIECTOMY Right 05/26/2019 Procedure: right hemiCRANIECTOMY; Surgeon: Wilton Rankin MD; Location: [facility] NEURO OR; Service: Neurological CRANIOPLASTY Right 09/26/2023 Procedure: RIGHT CRANIOPLASTY. *PERIOPERATIVE GLYCEMIC PROTOCOL*; Surgeon: Wilton Rankin MD; Location: [facility] NEURO OR; Service: Neurological EGD N/A 06/09/2019 Procedure: ESOPHAGOGASTRODUODENOSCOPY with percutaneous endoscopic gastrostomy tube placement; Surgeon: Luc Farmer MD; Location: [facility]; Service: Gastroenterology For complete objective data, detailed plan of care and patient education refer to: PT Evaluation flowsheet, PT Evaluation and Treatment flowsheet, PT Treatment flowsheet, patient Plan of Care, Plan of Care progress note, and Patient Education. This note stands as the current Discharge Summary upon patient discharge from the hospital or completion of Physical Therapy Plan. * Halima Christianson LISW-S - 09/28/2023 11:17 AM EDT Care Management Critical Care Consult Note Date: 09/28/2023 Time: 11:38 AM Patient Name: Johnathan Gonzalez Date of : 1975 Reason for Consult: Consult received and chart reviewed including pertinent past medical history. Assessment completed with: the pt's POA Eladio Gonzalez ([phone]) over the phone and he confirms discharge plans back to LTC bed at [facility] in [place], [place]. Also confirmed with [facility] ([phone]) that the pt is a LTC resident. They report if the pt has skillable needs, he will have to have a pre-cert prior to return. Their fax number for intake is: [phone]. The pt's referral is sent by . Amb SNF order is also placed. He reports the pt's POA documents are now on file at the facility, but he is unable to provide themhere in the hospital to this SW. Decision Making Capacity/Advanced Directives: Per chart review and discussion with treatment team, patient has been currently identified as unable to make medical decisions at this time. A surrogate Has been found. Their contact information is as follows: Name- As on Facesheet, Chrystal Relationship to patient- POAs Phone #- As on Facesheet: Does patient currently have any known advanced directives?: Yes, has an advanced directive - a copyhas been provided. Other notes: As stated above, POA in place, just not on file here at [facility]. Assessment and Background Information: Prior to admission for R cranioplasty with Dr. Rankin, the pt lived in [facility] ([facility]). He iswheelchair-bound at baseline with L hemiplegia as per chart review. Interventions During Consult: Referral sent back to [facility] for skilled needs. All information is above. ANDRE drain remains in place, placed by Neurosurgery. Discharge Plan: D/C Disposition: Home ([facility]) Final D/C Agency/Destination: Other ([facility]) How did you provide the Post Acute Choices: (Phone call with POA) Reason for Choice: Patient/Family preference, Currently with agency -- Discharging Transportation Plan: Transportation Type: Ambulance, W/C Van (WC bound at baseline, waiting on therapy) ) * Rodrick Lennon PA-C - 09/27/2023 3:02 PM EDTAssociated Order(s): IP CONSULT TO HOSPITALIST [facility] Consult Note 09/27/23 Johnathan Gonzalez 1975 [id number] Assessment/Plan: Johnathan Gonzalez is a 48 y.o. male with a history of htn, seizures, H/o CVA who presented to [facility] 09/26/2023 for planned cranioplasty with Dr. Rankin(neurosurgery) 09/26/23 and admitted to [facility]. [facility] consulted for NCC step down management. 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 S/p R cranioplasty by Dr. Rankin(neurosurgery) 09/26/23. CT head 09/26/23 with expected post op fluid and gas, no significant mass defect. ASA held pend neurosurgery recs. ANDRE drain per neurosurgery. Seizures: Per hx, continued home meds HTN: Per hx, Bp 107/77 on admit. Continued home norvasc Vascular Dementia: IN setting of above. Continued home Rivastigmine, Rexulti, Provera Chronic Pain/Myositis: with history of LLE myositis and wheel chair bound at baseline in setting ofL hemiplegia. 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 Continued home diet(mech soft w/thin liquids) Code status: full DVT Prophylaxis: lovenox Thank you for allowing us to participate in the care of your patient. For any questions, please call the number of the covering hospitalist listed under the treatment team in care connect. Current living situation: SNF([facility]) Expected Disposition: same Estimated discharge date: 2-3 days pend primary ___ Chief Complaint / Reason for Consult: Skull Defect/ Step down management History of Present Illness: Johnathan Gonzalez is a 48 y.o. male with a history of htn, seizures, H/o CVA who presented to [facility] 09/26/2023 for planned cranioplasty with Dr. Rankin(neurosurgery) 09/26/23 and admitted to [facility]. [facility] consulted for [facility] step down management. Patient seen and evaluated in bed 4510. Patient is resting in bed. Denies any acute issues at this time. No chest pain, shortness of breath, nausea, vomiting, or diarrhea. Today I personally did a review of prior medical records and have summarized my findings in my assessment and plan as noted above. Today I also reviewed recent labs, diagnostics, vitals including pulse ox, and infrastructure consultant/other provider recommendations. reviewed neurosurgery op note, [facility] progress note, and H&P. DC summary from 10/14/2019. Patient does have prn order for dilaudid, high risk med will require close monitoring. ROS: 10 systems were reviewed and negative, except as noted above. Past Medical, Surgical, Social, Family History: Past Medical History: Diagnosis Date Arthritis Diabetes mellitus (HCC) Hypertension MRSA (methicillin resistant Staphylococcus aureus) Seizures (HCC) Stroke (HCC) Syncope Past Surgical History: Procedure Laterality Date BRONCHOSCOPY N/A 06/09/2019 Procedure: BRONCHOSCOPY with tracheostomy; Surgeon: Luc Rodas MD; Location: [facility] Endo; Service: General Surgery CRANIECTOMY Right 05/26/2019 Procedure: right hemiCRANIECTOMY; Surgeon: Wilton Rankin MD; Location: [facility] NEURO OR; Service: Neurological CRANIOPLASTY Right 09/26/2023 Procedure: RIGHT CRANIOPLASTY. *PERIOPERATIVE GLYCEMIC PROTOCOL*; Surgeon: Wilton Rankin MD; Location: [facility] NEURO OR; Service: Neurological EGD N/A 06/09/2019 Procedure: ESOPHAGOGASTRODUODENOSCOPY with percutaneous endoscopic gastrostomy tube placement; Surgeon: Luc Farmer MD; Location: [facility] Endo; Service: Gastroenterology Social History Socioeconomic History Marital status: Tobacco Use Smoking status: Former Smokeless tobacco: Current Types: Snuff Substance and Sexual Activity Alcohol use: Yes Alcohol/week: 12.0 standard drinks of alcohol Types: 12 Cans of beer per week Comment: per week Drug use: Not Currently No family history on file. Current Medications: Medication list reviewed with patient. Please see MAR for full details. Physical Exam: BP 107/77 Pulse 95 Temp 99.1 F (37.3 C) (Oral) Resp 13 Ht 5' 10 Wt 89 kg (196 lb 3.4 oz) SpO2 94% BMI 28.15 kg/m General: NAD Eyes: EOMI ENT: neck supple Cardiovascular: Regular rate. Respiratory: Clear to auscultation Gastrointestinal: Soft, non tender Genitourinary: no suprapubic tenderness Musculoskeletal: No edema Skin: warm, dry Neuro: Alert. Psych: Mood appropriate. Labs, Imaging, and Studies reviewed: Results from last 7 days Lab Units 09/27/23 0309 WBC K/mcL 10.85 HGB g/dL 12.1* HCT % 37.2* PLT K/mcL 194 Results from last 7 days Lab Units 09/27/23 0309 SODIUM mmol/L 141 POTASSIUM mmol/L 4.2 CHLORIDE mmol/L 107 BICARB mmol/L 23 BUN mg/dL 9 CREATININE mg/dL 1.02 EGFR mL/min/1.73 m2 90 GLUCOSE mg/dL 130* PHOSPHORUS mg/dL 3.3 Associated attestation - Milton Herzog MD - 09/27/2023 4:09 PM EDT I have personally performed a [id number] diagnostic evaluation of this patient on 09/27/2023. After discussing the case with Sunday Lennon PA-C, I performed the substantive part of the medical decision making for this encounter and approved the BERYL's plan of care with the following additions: Patient with HTN, epilepsy CVA in 2019 c/b malignant edema and hemicraniectomy. Admitted for planned right cranioplasty with Dr. Rankin (neurosurgery). Initially admitted to [facility] post op. Doing well and [facility] consulted for medical co-management on the floor. Mild VILLALTA. Denies other complaints. Stable for transfer to floor. Physical Exam (Focused elements based on presentation): BP 107/77 Pulse 95 Temp 99.1 F (37.3 C) (Oral) Resp 13 Ht 5' 10 Wt 89 kg (196 lb 3.4 oz) SpO2 94% BMI 28.15 kg/m General: NAD Eyes: EOMI ENT: neck supple, cranial bandages Cardiovascular: Regular rate. Respiratory: Clear to auscultation Gastrointestinal: Soft, non tender Genitourinary: no suprapubic tenderness Musculoskeletal: No LE edema. Skin: warm, dry Neuro: Alert. Oriented x 2. Psych: Mood appropriate. * Isatu Mitchell, PHYSICAL THERAPY DIRECTOR - 09/26/2023 6:49 PM EDT Neurocritical Care Consultation Johnathan Gonzalez is a 48 y.o. male with a PMH of CVA (prior R hemicraniectomy and residual L hemiplegia), Vascular Dementia, Seizure, HTN, HLD, Anxiety/Depression, BPH, and DM2 presented to [place] 09/26/2023 for a planned R cranioplasty with Dr. Rankin. 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 Due to ongoing POA challenges his cranioplasty was delayed, however his brother Eladio is now serving as pt's POA and wishes to undergo surgical repair. Admitted with these risk variables:None. Please see assessment and plan for further details. Assessment and Plan NEUROLOGIC CVA / Skull Defect - Per history, prior stroke 05/2019 R MCA CVA with malignant edema requiring hemicraniectomy. - POD#0 s/p R cranioplasty with Dr. Rankin (09/25) - CTH 09/25 1500hrs post-op cranioplasty on R with some expected post op fluid/gas bubbles beneath the cranioplasty flap. No mass effect noted. Large chronic R MCA infarct, stable. No mass effect, hydro, or post op hemorrhage. - Resume home Statin & ASA when cleared by NSGY post op - PRNs ordered for post op pain management - PT/OT Seizure - Per history - Continue home Keppra 500 BID - Depakote noted on med history but per ECF records and KHADIJAH no longer taking Anxiety/Depression - Per history - Continue home Cymbalta Vascular Dementia - Per history - Continue home Rivastigmine, Rexulti, Provera Chronic pain / Myositis - History of LLE myositis and wheelchair bound at baseline with L hemiplegia - Continue home Baclofen - Per ECF and KHADIJAH records pt no longer taking Neurontin - Continue home bowel regimen (Miralax) - PRNs for post op pain control available CARDIOVASCULAR HTN - Per history - Continue home Norvasc HLD - Per history - Continue home statin Rhythm and BP stable. PULMONARY Protecting airway and oxygenating appropriately on room air. RENAL SNa - -, K - -, SCr - - / BUN - - -- post op labs pending ERP in place. BPH - Per history - Continue home Proscar, Flomax HEMATOLOGIC Hgb - - / HCT - -, Plt - -, INR - - -- post op labs pending ID Afebrile Tm < 99.5, WBC - - -- post op labs pending ENDOCRINE DM2 - Per history - A1c 5.3 05/2019 -- recheck pending - Glucose goal 80 - 180 - SSI ordered GI / HEPATIC ADAT post op, BR ordered Dysphagia - Secondary to R MCA stroke, present prior to admission - Resume modified diet (mech soft with thin liquids) GERD - Per history - Continue home Pepcid PROPHYLAXIS SCDs, Pepcid, and Hold pharmacologic DVT ppx until 24h post op CODE STATUS / FAMILY Full code Plan discussed with NCC attending Dr. Max. Isatu Mitchell CNP Neurocritical Care Reason for Consultation: post op medical management History of Presenting Illness: Johnathan Gonzalez is a 48 y.o. male with past medical history including R MCA CVA (s/p prior R hemicraniectomy May 2019 with residual L hemiplegia), Vascular Dementia, Seizure, HTN, HLD, Anxiety/Depression, BPH, and DM2 presented to [place] 09/26/2023 for a planned R cranioplasty with Dr. Rankin. Patient was known to Neurosurgery following previous right hemicraniectomy for malignant cerebral edema and currently resides in an ECF. He returns to [facility] 09/26/2023 for planned right cranioplasty. Arrives NCC post-operatively alert, oriented in no apparent distress. Endorses 6/10 right cranial tonny-incisional pain like someone hit me with a 2x4. Otherwise denies new complaints including vision change, paresthesias, dyspnea, angina, abdominal pain, nausea/vomiting. Review of Systems: [x] CV, Resp, GI, Neuro, and all other systems reviewed and negative other than listed above. [] Unable to obtain review of systems due to intubation, critically ill condition, and/or neurologic status. Past Medical, Surgical and Social History: Medical History: Past Medical History: Diagnosis Date Arthritis Diabetes mellitus (HCC) Hypertension MRSA (methicillin resistant Staphylococcus aureus) Seizures (HCC) Stroke (HCC) Syncope Surgical History: Past Surgical History: Procedure Laterality Date BRONCHOSCOPY N/A 06/09/2019 Procedure: BRONCHOSCOPY with tracheostomy; Surgeon: Luc Rodas MD; Location: [facility] Endo; Service: General Surgery CRANIECTOMY Right 05/26/2019 Procedure: right hemiCRANIECTOMY; Surgeon: Wilton Rankin MD; Location: [facility] NEURO OR; Service: Neurological EGD N/A 06/09/2019 Procedure: ESOPHAGOGASTRODUODENOSCOPY with percutaneous endoscopic gastrostomy tube placement; Surgeon: Luc Farmer MD; Location: [facility] Endo; Service: Gastroenterology Family History: No family history on file. Social History: Social History Socioeconomic History Marital status: Tobacco Use Smoking status: Former Smokeless tobacco: Current Types: Snuff Substance and Sexual Activity Alcohol use: Yes Alcohol/week: 12.0 standard drinks of alcohol Types: 12 Cans of beer per week Comment: per week Drug use: Not Currently Allergies and Medications: Allergies: No Known Allergies Hospital medications reviewed. Home medications: Prior to Admission medications Medication Sig Start Date End Date Taking? Authorizing Provider acetaminophen (TYLENOL) 325 MG tablet Take 2 (two) tablets (650 mg total) by mouth every 4 (four) hours as needed for pain Reasons: pain. Yes Provider, MD Betina amLODIPine (NORVASC) 5 MG tablet Take 1 (one) tablet (5 mg total) by mouth every morning . Yes Betina Madsen MD aspirin 81 MG EC tablet Take 1 (one) tablet (81 mg total) by mouth daily . Yes Betina Madsen MD atorvastatin (LIPITOR) 40 MG tablet Take 1 (one) tablet (40 mg total) by mouth at bedtime . Yes Betina Madsen MD baclofen 5 mg Tab Take 1 (one) tablet (5 mg total) by mouth 2 (two) times a day . Yes Betina Madsen MD brexpiprazole (Rexulti) 1 mg Tab Take 1 (one) tablet (1 mg total) by mouth every morning . Yes Betina Madsen MD DULoxetine (CYMBALTA) 60 MG capsule Take 1 (one) capsule (60 mg total) by mouth at bedtime . Yes Betina Madsen MD finasteride (PROSCAR) 5 mg tablet Take 1 (one) tablet (5 mg total) by mouth daily . Yes Betina Madsen MD levETIRAcetam (KEPPRA) 500 MG tablet Take 1 (one) tablet (500 mg total) by mouth 2 (two) times a day . Yes Betina Madsen MD medroxyPROGESTERone (PROVERA) 10 MG tablet Take 1 (one) tablet (10 mg total) by mouth 2 (two) timesa day . Yes Betina Madsen MD melatonin 3 mg Tab Take 2 (two) tablets (6 mg total) by mouth nightly . Yes Betina Madsen MD ondansetron (ZOFRAN-ODT) 4 MG disintegrating tablet Dissolve 1 (one) tablet (4 mg total) on top of tongue every 6 (six) hours as needed . 10/14/19 09/26/23 Yes Romario Fatima, pantoprazole (PROTONIX) 40 MG tablet Take 1 (one) tablet (40 mg total) by mouth every morning . YesBetina Madsen MD polyethylene glycol (MIRALAX) 17 gram powder Take 17 (seventeen) g by mouth daily . Yes Betina Madsen MD tamsulosin (FLOMAX) 0.4 mg capsule Take 1 (one) capsule (0.4 mg total) by mouth daily . Yes Betina Madsen MD albuterol 90 mcg/actuation inhaler Inhale 2 (two) puffs every 6 (six) hours as needed for wheezing . Betina Madsen MD atorvastatin (LIPITOR) 80 MG tablet Take 1 (one) tablet (80 mg total) by mouth nightly . 10/14/19 09/26/23 Romario Fatima DO divalproex (Depakote Sprinkles) 125 mg delayed release (DR) capsule Take 4 (four) capsules (500 mg total) by mouth 3 (three) times a day . Betina Madsen MD famotidine (PEPCID) 20 MG tablet Take 1 (one) tablet (20 mg total) by mouth nightly . 10/14/19 09/26/23 Romario Fatima DO gabapentin (NEURONTIN) 300 MG capsule Take 3 (three) capsules (900 mg total) by mouth every 8 (eight) hours for 3 days . 10/14/19 09/26/23 Romario Fatima DO melatonin 5 mg Tab Take 1 (one) tablet (5 mg total) by mouth nightly as needed (insomnia) . 10/14/19 09/26/23 Romario Fatima DO menthol 4 % Gel Apply topically 2 (two) times a day as needed (knees/shoulders) . Betina Madsen MD potassium chloride (MICRO-K) 10 MEQ CR capsule Take 1 (one) capsule (10 mEq total) by mouth daily .Betina Madsen MD RIVASTIGMINE TARTRATE ORAL Take 6 mg by mouth 2 (two) times a day . Betina Madsen MD simethicone (MYLICON,GAS-X) 180 mg capsule Take 1 (one) capsule (180 mg total) by mouth 3 (three) times a day . Betina Madsen MD Exam Vital Signs: Temp: [97 F (36.1 C)-98.4 F (36.9 C)] 97 F (36.1 C) Heart Rate: [74-100] 92 Resp: [10-18] 12 BP: (88-130)/(53-95) 106/68 No intake/output data recorded. General: Alert and appears comfortable on RA. Head/Neck: Head - right cranial dressing shadowed with serosanguineous drainage. ANDRE x1 with sanguineous output. Eyes - Sclerae anicteric. Ears - External ears normal. Nose: Normal. Mouth - MMM. Neck - trachea is midline. Cardiovascular: Regular rate and rhythm. No clicks, rubs, murmurs, or gallops noted. Peripheral extremity pulses are palpable. Respiratory: Respiratory effort unlabored without accessory muscle use. Lung sounds clear to ascultation bilaterally without wheezes, rales, or rhonchi. Abdominal: Rounded, soft, nondistended, nontender, decreased bowel sounds. Musculoskeletal: No obvious long bone deformity. Extremities: Well perfused. No clubbing, cyanosis, or edema noted. Neurological: Awake and alert, oriented to name, place, and time. Gaze conjugate, EOMI. PERRL @ 3mm. Speech clear and appropriate. Minimal left facial weakness. Tongue midline. Motor strength 5/5 to RUE/RLE. Left hemiplegia. Skin: Normal turgor, well-hydrated, no diffuse rash appreciated. Clinical Data: [x] Lab, Micro data reviewed. [x] Most recent imaging reviewed. No results for input(s): PHART, FOL7HDB, PO2ART, S9ZSHBLN, RESPRATE, TIDALVOL, PEEP, T4CUXUDM in the last 72 hours. No results for input(s): WBC, HGB, PLT in the last 72 hours. No results for input(s): NA, K, CL, BICARB, BUN, CREATININE, GLUCOSE, PHOS, MG, KATHY, CALCIUM, BILITOT, ALKPHOS, ALT, AST, PROT, ALBUMIN in the last 72 hours. Invalid input(s): ALB Lab Results Component Value Date LACTICACID 0.7 06/04/2019 LACTICACID 0.7 06/03/2019 LACTICACID 0.7 06/03/2019 No results for input(s): INR, PTT in the last 72 hours. Labs Last Refreshed: CBC - 10/08/2019, BMP - 10/08/2019, CMP - - -, Coag - 08/11/2019 documented in this [id number] Consult note* Dolores Cain, PT - 09/30/2023 11:56 AM EDT Physical Therapy PHYSICAL THERAPY EVALUATION Skilled Therapy Needs After Discharge Anticipate Resolution of Current Assessment Limitations Including: Mechanical Barriers Are Skilled Therapy Services Needed After Discharge: Yes Intensity of Skilled Therapy: Up to 5 days per week Anticipated Duration of Skilled Therapy: Duration 7 - 10 days DME Recommendation: To be determined at next level of care Rehab Potential: Good, For goals Outcomes Measures Prior Function - Basic Mobility Raw Score: 9 Points Prior Function - Basic Mobility % Impaired: 77.59% AM-PAC Basic Mobility Raw Score: 6 Points AM-PAC Basic Mobility % Impaired: 100% Physical Therapy Assessment History: The following factors influence the patient's participation in the PT plan of care: Personal Factors: Limited Baseline Mobility, Decreased Insight Environmental Factors: Other (comment) (from LTC facility) The following co-morbidities (from this admission or prior) influence the patient's participation in this plan of care: PMH of htn, seizures, H/o CVA who presented to [facility] 09/26/2023 for planned cranioplasty for skull defect with Dr. Rankin(neurosurgery) 09/26/23 Number of History elements affecting this patient's PT plan of care: 3 or more Examination of Body Systems: The patient presents with: Musculoskeletal impairments: Strength, ROM, Pain, Functional Endurance Neurologic Impairments: Coordination, Balance, Paralysis, Cognition, Vision Cardiopulmonary Impairments: Activity Tolerance Vascular Impairments: Sensation. These impairments result in limitations of Functional Transfers, Safety, Safety Awareness, Wheelchair Mobility, Activity Tolerance. These impairments result in restrictions of Household mobility. Number of Body Systems elements affecting this patient's PT plan of care: 4 or more. Clinical Presentation: The patient's clinical presentation for this PT evaluation is with unstable and unpredictable characteristics as evidenced by current PT documentation. Activity Tolerance Activity Tolerance: Tolerates 20 - 30 min activity with multiple rests Therapy Precautions Orthotic Devices: No Weight Bearing Status: WFL General Rehab Precautions: Seizure, Fall risk Balance Assessment Sitting Balance - Static: Maximal assist Loss of Balance - Sitting Static: posterior, right Sitting Balance - Dynamic: Maximal assist Loss of Balance - Sitting Dynamic: right, posterior Bed Mobility Rolling: Maximal assist, Dependent (Max to the L, Dependent to the R) Supine to Sit: Dependent, 2 person assist Sit to Supine: Dependent, 2 person assist Additional Assessment Details Patient educated on PT POC and anticipated outcomes, purpose of PT in acute care setting, call light safety, and importance of mobility. Patient wheelchair bound. Patient could benefit from further skilled PT to promote functional mobility, safety and independence. Sat EOB for ~8 minutes before fatigue requiring cues to maintain midline. Bed in chair position at end of session, all needs in reach. Home Living Obtained Home Living and PLOF info from: Patient Type of Home: [facility] facility Home Layout: One level Steps to enter home: No Bathroom Shower/Tub: Walk-in shower Bathroom Equipment: Shower chair Mobility Equipment: Wheelchair - manual Prior Level of Function Level of [place] - Transfers/Ambulation/Mobility: Needs mobility assistance/device, Needs wheelchair mobility assistance Level of [place] - ADLs: Needs assistance Bathing: Maximal assist Dressing: Maximal assist Toileting: Total assist Grooming: Set up assist Feeding: Set up assist Level of [place] - Homemaking: (does not perform) Driving: Patient does not drive Past Medical History: Diagnosis Date Arthritis Diabetes mellitus (HCC) Hypertension MRSA (methicillin resistant Staphylococcus aureus) Seizures (HCC) Stroke (HCC) Syncope Past Surgical History: Procedure Laterality Date BRONCHOSCOPY N/A 06/09/2019 Procedure: BRONCHOSCOPY with tracheostomy; Surgeon: Luc Rodas MD; Location: [facility]; Service: General Surgery CRANIECTOMY Right 05/26/2019 Procedure: right hemiCRANIECTOMY; Surgeon: Wilton Rankin MD; Location: [facility] NEURO OR; Service: Neurological CRANIOPLASTY Right 09/26/2023 Procedure: RIGHT CRANIOPLASTY. *PERIOPERATIVE GLYCEMIC PROTOCOL*; Surgeon: Wilton Rankin MD; Location: [facility] NEURO OR; Service: Neurological EGD N/A 06/09/2019 Procedure: ESOPHAGOGASTRODUODENOSCOPY with percutaneous endoscopic gastrostomy tube placement; Surgeon: Luc Farmer MD; Location: [facility] Endo; Service: Gastroenterology For complete objective data, detailed plan of care and patient education refer to: PT Evaluation flowsheet, PT Evaluation and Treatment flowsheet, PT Treatment flowsheet, patient Plan of Care, Plan of Care progress note, and Patient Education. This note stands as the current Discharge Summary upon patient discharge from the hospital or completion of Physical Therapy Plan. [id number] Note* Plan of Care - Pam Connor RN - 09/30/2023 2:11 AM EDT Problem: Actual or potential alteration in health Goal: Absence of healthcare acquired conditions Outcome: Met Goal: Knowledge of Enviroment Outcome: Met Problem: Pain Goal: Manage acute pain Outcome: Met Goal: Manage chronic pain Outcome: Met Goal: Reduced pain sensation Outcome: Met Goal: Achievement of comfort function goal Outcome: Met Problem: Pressure Ulcer - Risk of Goal: Absence of pressure ulcer Outcome: Met Problem: Falls, Risk of Goal: Absence of falls Outcome: Met Problem: Infection Risk, Urinary Catheter-Associated Goal: Absence of catheter associated urinary tract infection Outcome: Met Problem: Actual or potential alteration in health Goal: Knowledge of Interdisciplinary Plan of Care Outcome: Partially Met [id number] Consult note* Halima Christianson LISW-S - 09/28/2023 11:17 AM EDT Care Management Critical Care Consult Note Date: 09/28/2023 Time: 11:38 AM Patient Name: Johnathan Gonzalez Date of : 1975 Reason for Consult: Consult received and chart reviewed including pertinent past medical history. Assessment completed with: the pt's POA Eladio Gonzalez ([phone]) over the phone and he confirms discharge plans back to LTC bed at [facility] in [place], [place]. Also confirmed with [facility] ([phone]) that the pt is a LTC resident. They report if the pt has skillable needs, he will have to have a pre-cert prior to return. Their fax number for intake is: [phone]. The pt's referral is sent by . Amb SNF order is also placed. He reports the pt's POA documents are now on file at the facility, but he is unable to provide themhere in the hospital to this SW. Decision Making Capacity/Advanced Directives: Per chart review and discussion with treatment team, patient has been currently identified as unable to make medical decisions at this time. A surrogate Has been found. Their contact information is as follows: Name- As on Facesheet, Chrystal Relationship to patient- Lindsay Phone #- As on Facesheet: Does patient currently have any known advanced directives?: Yes, has an advanced directive - a copyhas been provided. Other notes: As stated above, POA in place, just not on file here at [facility]. Assessment and Background Information: Prior to admission for R cranioplasty with Dr. Rankin, the pt lived in [facility] ([facility]). He iswheelchair-bound at baseline with L hemiplegia as per chart review. Interventions During Consult: Referral sent back to [facility] for skilled needs. All information is above. ANDRE drain remains in place, placed by Neurosurgery. Discharge Plan: D/C Disposition: Home ([facility]) Final D/C Agency/Destination: Other ([facility]) How did you provide the Post Acute Choices: (Phone call with POA) Reason for Choice: Patient/Family preference, Currently with agency -- Discharging Transportation Plan: Transportation Type: Ambulance, W/C Van (WC bound at baseline, waiting on therapy) ) [id number] Note* Plan of Care - Maci Montanez RN - 09/28/2023 11:13 AM EDT Problem: Actual or potential alteration in health Goal: Absence of healthcare acquired conditions Outcome: Met Goal: Knowledge of Interdisciplinary Plan of Care Outcome: Partially Met Goal: Knowledge of Enviroment Outcome: Partially Met Problem: Pain Goal: Manage acute pain Outcome: Met Goal: Manage chronic pain Outcome: Not Addressed Goal: Reduced pain sensation Outcome: Met Goal: Achievement of comfort function goal Outcome: Met Problem: Pressure Ulcer - Risk of Goal: Absence of pressure ulcer Outcome: Met Problem: Falls, Risk of Goal: Absence of falls Outcome: Met [id number] Consult note* Rodrick Lennon PA-C - 09/27/2023 3:02 PM EDTAssociated Order(s): IP CONSULT TO HOSPITALIST [facility] Consult Note 09/27/23 Johnathan Gonzalez 1975 [id number] Assessment/Plan: Johnathan Gonzalez is a 48 y.o. male with a history of htn, seizures, H/o CVA who presented to [facility] 09/26/2023 for planned cranioplasty with Dr. Rankin(neurosurgery) 09/26/23 and admitted to [facility]. [facility] consulted for [facility] step down management. 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 S/p R cranioplasty by Dr. Rankin(neurosurgery) 09/26/23. CT head 09/26/23 with expected post op fluid and gas, no significant mass defect. ASA held pend neurosurgery recs. ANDRE drain per neurosurgery. Seizures: Per hx, continued home meds HTN: Per hx, Bp 107/77 on admit. Continued home norvasc Vascular Dementia: IN setting of above. Continued home Rivastigmine, Rexulti, Provera Chronic Pain/Myositis: with history of LLE myositis and wheel chair bound at baseline in setting ofL hemiplegia. 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 Continued home diet([facility] soft w/thin liquids) Code status: full DVT Prophylaxis: lovenox Thank you for allowing us to participate in the care of your patient. For any questions, please call the number of the covering hospitalist listed under the treatment team in care connect. Current living situation: SN[facility]) Expected Disposition: same Estimated discharge date: 2-3 days pend primary ___ Chief Complaint / Reason for Consult: Skull Defect/ Step down management History of Present Illness: Johnathan Gonzalez is a 48 y.o. male with a history of htn, seizures, H/o CVA who presented to [facility] 09/26/2023 for planned cranioplasty with Dr. Rankin(neurosurgery) 09/26/23 and admitted to [facility]. [facility] consulted for [facility] step down management. Patient seen and evaluated in bed 4510. Patient is resting in bed. Denies any acute issues at this time. No chest pain, shortness of breath, nausea, vomiting, or diarrhea. Today I personally did a review of prior medical records and have summarized my findings in my assessment and plan as noted above. Today I also reviewed recent labs, diagnostics, vitals including pulse ox, and infrastructure consultant/other provider recommendations. reviewed neurosurgery op note, NCC progress note, and H&P. DC summary from 10/14/2019. Patient does have prn order for dilaudid, high risk med will require close monitoring. ROS: 10 systems were reviewed and negative, except as noted above. Past Medical, Surgical, Social, Family History: Past Medical History: Diagnosis Date Arthritis Diabetes mellitus (HCC) Hypertension MRSA (methicillin resistant Staphylococcus aureus) Seizures (HCC) Stroke (HCC) Syncope Past Surgical History: Procedure Laterality Date BRONCHOSCOPY N/A 06/09/2019 Procedure: BRONCHOSCOPY with tracheostomy; Surgeon: Luc Rodas MD; Location: [facility] Endo; Service: General Surgery CRANIECTOMY Right 05/26/2019 Procedure: right hemiCRANIECTOMY; Surgeon: Wilton Rankin MD; Location: [facility] NEURO OR; Service: Neurological CRANIOPLASTY Right 09/26/2023 Procedure: RIGHT CRANIOPLASTY. *PERIOPERATIVE GLYCEMIC PROTOCOL*; Surgeon: Wilton Rankin MD; Location: [facility] NEURO OR; Service: Neurological EGD N/A 06/09/2019 Procedure: ESOPHAGOGASTRODUODENOSCOPY with percutaneous endoscopic gastrostomy tube placement; Surgeon: Luc Farmer MD; Location: [facility]; Service: Gastroenterology Social History Socioeconomic History Marital status: Tobacco Use Smoking status: Former Smokeless tobacco: Current Types: Snuff Substance and Sexual Activity Alcohol use: Yes Alcohol/week: 12.0 standard drinks of alcohol Types: 12 Cans of beer per week Comment: per week Drug use: Not Currently No family history on file. Current Medications: Medication list reviewed with patient. Please see MAR for full details. Physical Exam: BP 107/77 Pulse 95 Temp 99.1 F (37.3 C) (Oral) Resp 13 Ht 5' 10 Wt 89 kg (196 lb 3.4 oz) SpO2 94% BMI 28.15 kg/m General: NAD Eyes: EOMI ENT: neck supple Cardiovascular: Regular rate. Respiratory: Clear to auscultation Gastrointestinal: Soft, non tender Genitourinary: no suprapubic tenderness Musculoskeletal: No edema Skin: warm, dry Neuro: Alert. Psych: Mood appropriate. Labs, Imaging, and Studies reviewed: Results from last 7 days Lab Units 09/27/23 0309 WBC K/mcL 10.85 HGB g/dL 12.1* HCT % 37.2* PLT K/mcL 194 Results from last 7 days Lab Units 09/27/23 0309 SODIUM mmol/L 141 POTASSIUM mmol/L 4.2 CHLORIDE mmol/L 107 BICARB mmol/L 23 BUN mg/dL 9 CREATININE mg/dL 1.02 EGFR mL/min/1.73 m2 90 GLUCOSE mg/dL 130* PHOSPHORUS mg/dL 3.3 Associated attestation - Milton Herzog MD - 09/27/2023 4:09 PM EDT I have personally performed a [id number] diagnostic evaluation of this patient on 09/27/2023. After discussing the case with Sunday Lennon PA-C, I performed the substantive part of the medical decision making for this encounter and approved the BERYL's plan of care with the following additions: Patient with HTN, epilepsy CVA in 2019 c/b malignant edema and hemicraniectomy. Admitted for planned right cranioplasty with Dr. Rankin (neurosurgery). Initially admitted to [facility]CCU post op. Doing well and [facility] consulted for medical co-management on the floor. Mild VILLALTA. Denies other complaints. Stable for transfer to floor. Physical Exam (Focused elements based on presentation): BP 107/77 Pulse 95 Temp 99.1 F (37.3 C) (Oral) Resp 13 Ht 5' 10 Wt 89 kg (196 lb 3.4 oz) SpO2 94% BMI 28.15 kg/m General: NAD Eyes: EOMI ENT: neck supple, cranial bandages Cardiovascular: Regular rate. Respiratory: Clear to auscultation Gastrointestinal: Soft, non tender Genitourinary: no suprapubic tenderness Musculoskeletal: No LE edema. Skin: warm, dry Neuro: Alert. Oriented x 2. Psych: Mood appropriate. [employer] Work Phone: [phone] Hospital Discharge instructions* Discharge Instr - AVS First Page* Lacy Slater CNP - 09/27/2023 1:39 PM EDT CRANIOTOMY HOME CARE INSTRUCTIONS -No driving, lifting over 10 pounds or strenuous activity until okay d by your doctor -Shower with your incision covered until jose luis are removed. -Keep incision dry until jose luis are removed. Call the surgeons office for an appointment for staple removal. Call Your Doctor If You Have: -Uncontrolled pain -Signs of surgical site infection - incision redness, swelling, drainage, fever greater than 101 F -New symptoms, such as excessive sleepiness or weakness, or seizure activity -Nausea, vomiting or a stiff neck -Memory loss or a hard time concentrating -Changes in your personality such as more aggressive or risky behavior -Problems with sleeping - either sleeping too much or not enough documented in this [id number] Note* Quick Note - Allegra Delacruz RN - 09/26/2023 6:59 PM EDT Patient arrives on unit with .cell phone, and clothing pants, shirt, socks shoes, placed in closet, Verified with second associate, Cora Lenz RN Skin assessment completed upon admission to unit. Verified by note author and Tremayne Lenz RN. No abnormalities noted. Preventative Mepilex applied to sacrum [id number] Consult note* Isatu Mitchell CNP - 09/26/2023 6:49 PM EDT Neurocritical Care Consultation Johnathan Gonzalez is a 48 y.o. male with a PMH of CVA (prior R hemicraniectomy and residual L hemiplegia), Vascular Dementia, Seizure, HTN, HLD, Anxiety/Depression, BPH, and DM2 presented to [place] 09/26/2023 for a planned R cranioplasty with Dr. Rankin. 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 Due to ongoing POA challenges his cranioplasty was delayed, however his brother Eladio is now serving as pt's POA and wishes to undergo surgical repair. Admitted with these risk variables:None. Please see assessment and plan for further details. Assessment and Plan NEUROLOGIC CVA / Skull Defect - Per history, prior stroke 05/2019 R MCA CVA with malignant edema requiring hemicraniectomy. - POD#0 s/p R cranioplasty with Dr. Rankin (09/25) - CTH 09/25 1500hrs post-op cranioplasty on R with some expected post op fluid/gas bubbles beneath the cranioplasty flap. No mass effect noted. Large chronic R MCA infarct, stable. No mass effect, hydro, or post op hemorrhage. - Resume home Statin & ASA when cleared by NSGY post op - PRNs ordered for post op pain management - PT/OT Seizure - Per history - Continue home Keppra 500 BID - Depakote noted on med history but per ECF records and KHADIJAH no longer taking Anxiety/Depression - Per history - Continue home Cymbalta Vascular Dementia - Per history - Continue home Rivastigmine, Rexulti, Provera Chronic pain / Myositis - History of LLE myositis and wheelchair bound at baseline with L hemiplegia - Continue home Baclofen - Per ECF and KHADIJAH records pt no longer taking Neurontin - Continue home bowel regimen (Miralax) - PRNs for post op pain control available CARDIOVASCULAR HTN - Per history - Continue home Norvasc HLD - Per history - Continue home statin Rhythm and BP stable. PULMONARY Protecting airway and oxygenating appropriately on room air. RENAL SNa - -, K - -, SCr - - / BUN - - -- post op labs pending ERP in place. BPH - Per history - Continue home Proscar, Flomax HEMATOLOGIC Hgb - - / HCT - -, Plt - -, INR - - -- post op labs pending ID Afebrile Tm < 99.5, WBC - - -- post op labs pending ENDOCRINE DM2 - Per history - A1c 5.3 05/2019 -- recheck pending - Glucose goal 80 - 180 - SSI ordered GI / HEPATIC ADAT post op, BR ordered Dysphagia - Secondary to R MCA stroke, present prior to admission - Resume modified diet ([facility] soft with thin liquids) GERD - Per history - Continue home Pepcid PROPHYLAXIS SCDs, Pepcid, and Hold pharmacologic DVT ppx until 24h post op CODE STATUS / FAMILY Full code Plan discussed with NCC attending Dr. Max. Isatu Mitchell, AURY Neurocritical Care Reason for Consultation: post op medical management History of Presenting Illness: Johnathan Gonzalez is a 48 y.o. male with past medical history including R MCA CVA (s/p prior R hemicraniectomy May 2019 with residual L hemiplegia), Vascular Dementia, Seizure, HTN, HLD, Anxiety/Depression, BPH, and DM2 presented to [place] 09/26/2023 for a planned R cranioplasty with Dr. Rankin. Patient was known to Neurosurgery following previous right hemicraniectomy for malignant cerebral edema and currently resides in an ECF. He returns to [facility] 09/26/2023 for planned right cranioplasty. Arrives NCC post-operatively alert, oriented in no apparent distress. Endorses 6/10 right cranial tonny-incisional pain like someone hit me with a 2x4. Otherwise denies new complaints including vision change, paresthesias, dyspnea, angina, abdominal pain, nausea/vomiting. Review of Systems: [x] CV, Resp, GI, Neuro, and all other systems reviewed and negative other than listed above. [] Unable to obtain review of systems due to intubation, critically ill condition, and/or neurologic status. Past Medical, Surgical and Social History: Medical History: Past Medical History: Diagnosis Date Arthritis Diabetes mellitus (HCC) Hypertension MRSA (methicillin resistant Staphylococcus aureus) Seizures (HCC) Stroke (HCC) Syncope Surgical History: Past Surgical History: Procedure Laterality Date BRONCHOSCOPY N/A 06/09/2019 Procedure: BRONCHOSCOPY with tracheostomy; Surgeon: Luc Rodas MD; Location: [facility] Endo; Service: General Surgery CRANIECTOMY Right 05/26/2019 Procedure: right hemiCRANIECTOMY; Surgeon: Wilton Rankin MD; Location: [facility] NEURO OR; Service: Neurological EGD N/A 06/09/2019 Procedure: ESOPHAGOGASTRODUODENOSCOPY with percutaneous endoscopic gastrostomy tube placement; Surgeon: Luc Farmer MD; Location: [facility] Endo; Service: Gastroenterology Family History: No family history on file. Social History: Social History Socioeconomic History Marital status: Tobacco Use Smoking status: Former Smokeless tobacco: Current Types: Snuff Substance and Sexual Activity Alcohol use: Yes Alcohol/week: 12.0 standard drinks of alcohol Types: 12 Cans of beer per week Comment: per week Drug use: Not Currently Allergies and Medications: Allergies: No Known Allergies Hospital medications reviewed. Home medications: Prior to Admission medications Medication Sig Start Date End Date Taking? Authorizing Provider acetaminophen (TYLENOL) 325 MG tablet Take 2 (two) tablets (650 mg total) by mouth every 4 (four) hours as needed for pain Reasons: pain. Yes Betina Madsen MD amLODIPine (NORVASC) 5 MG tablet Take 1 (one) tablet (5 mg total) by mouth every morning . Yes Betina Madsen MD aspirin 81 MG EC tablet Take 1 (one) tablet (81 mg total) by mouth daily . Yes Betina Madsen MD atorvastatin (LIPITOR) 40 MG tablet Take 1 (one) tablet (40 mg total) by mouth at bedtime . Yes Betina Madsen MD baclofen 5 mg Tab Take 1 (one) tablet (5 mg total) by mouth 2 (two) times a day . Yes Betina Madsen MD brexpiprazole (Rexulti) 1 mg Tab Take 1 (one) tablet (1 mg total) by mouth every morning . Yes Betina Madsen MD DULoxetine (CYMBALTA) 60 MG capsule Take 1 (one) capsule (60 mg total) by mouth at bedtime . Yes Betina Madsen MD finasteride (PROSCAR) 5 mg tablet Take 1 (one) tablet (5 mg total) by mouth daily . Yes Betina Madsen MD levETIRAcetam (KEPPRA) 500 MG tablet Take 1 (one) tablet (500 mg total) by mouth 2 (two) times a day . Yes Betina Madsen MD medroxyPROGESTERone (PROVERA) 10 MG tablet Take 1 (one) tablet (10 mg total) by mouth 2 (two) timesa day . Yes Betina Madsen MD melatonin 3 mg Tab Take 2 (two) tablets (6 mg total) by mouth nightly . Yes Betina Madsen MD ondansetron (ZOFRAN-ODT) 4 MG disintegrating tablet Dissolve 1 (one) tablet (4 mg total) on top of tongue every 6 (six) hours as needed . 10/14/19 09/26/23 Yes Romario Fatima DO pantoprazole (PROTONIX) 40 MG tablet Take 1 (one) tablet (40 mg total) by mouth every morning . Betina Nolasco MD polyethylene glycol (MIRALAX) 17 gram powder Take 17 (seventeen) g by mouth daily . Yes Betina Madsen MD tamsulosin (FLOMAX) 0.4 mg capsule Take 1 (one) capsule (0.4 mg total) by mouth daily . Yes Betina Madsen MD albuterol 90 mcg/actuation inhaler Inhale 2 (two) puffs every 6 (six) hours as needed for wheezing . Betina Madsen MD atorvastatin (LIPITOR) 80 MG tablet Take 1 (one) tablet (80 mg total) by mouth nightly . 10/14/19 09/26/23 Romario Fatima DO divalproex (Depakote Sprinkles) 125 mg delayed release (DR) capsule Take 4 (four) capsules (500 mg total) by mouth 3 (three) times a day . Betina Madsen MD famotidine (PEPCID) 20 MG tablet Take 1 (one) tablet (20 mg total) by mouth nightly . 10/14/19 09/26/23 Romario Fatima DO gabapentin (NEURONTIN) 300 MG capsule Take 3 (three) capsules (900 mg total) by mouth every 8 (eight) hours for 3 days . 10/14/19 09/26/23 Romario Fatima DO melatonin 5 mg Tab Take 1 (one) tablet (5 mg total) by mouth nightly as needed (insomnia) . 10/14/19 09/26/23 Romario Fatima DO menthol 4 % Gel Apply topically 2 (two) times a day as needed (knees/shoulders) . Betina Madsen MD potassium chloride (MICRO-K) 10 MEQ CR capsule Take 1 (one) capsule (10 mEq total) by mouth daily .Betina Madsen MD RIVASTIGMINE TARTRATE ORAL Take 6 mg by mouth 2 (two) times a day . Betina Madsen MD simethicone (MYLICON,GAS-X) 180 mg capsule Take 1 (one) capsule (180 mg total) by mouth 3 (three) times a day . Provider, Historical, MD Exam Vital Signs: Temp: [97 F (36.1 C)-98.4 F (36.9 C)] 97 F (36.1 C) Heart Rate: [74-100] 92 Resp: [10-18] 12 BP: (88-130)/(53-95) 106/68 No intake/output data recorded. General: Alert and appears comfortable on RA. Head/Neck: Head - right cranial dressing shadowed with serosanguineous drainage. ANDRE x1 with sanguineous output. Eyes - Sclerae anicteric. Ears - External ears normal. Nose: Normal. Mouth - MMM. Neck - trachea is midline. Cardiovascular: Regular rate and rhythm. No clicks, rubs, murmurs, or gallops noted. Peripheral extremity pulses are palpable. Respiratory: Respiratory effort unlabored without accessory muscle use. Lung sounds clear to ascultation bilaterally without wheezes, rales, or rhonchi. Abdominal: Rounded, soft, nondistended, nontender, decreased bowel sounds. Musculoskeletal: No obvious long bone deformity. Extremities: Well perfused. No clubbing, cyanosis, or edema noted. Neurological: Awake and alert, oriented to name, place, and time. Gaze conjugate, EOMI. PERRL @ 3mm. Speech clear and appropriate. Minimal left facial weakness. Tongue midline. Motor strength 5/5 to RUE/RLE. Left hemiplegia. Skin: Normal turgor, well-hydrated, no diffuse rash appreciated. Clinical Data: [x] Lab, Micro data reviewed. [x] Most recent imaging reviewed. No results for input(s): PHART, UER2PGY, PO2ART, R8WBMGDU, RESPRATE, TIDALVOL, PEEP, [id number] in the last 72 hours. No results for input(s): WBC, HGB, PLT in the last 72 hours. No results for input(s): NA, K, CL, BICARB, BUN, CREATININE, GLUCOSE, PHOS, MG, KATHY, CALCIUM, BILITOT, ALKPHOS, ALT, AST, PROT, ALBUMIN in the last 72 hours. Invalid input(s): ALB Lab Results Component Value Date LACTICACID 0.7 06/04/2019 LACTICACID 0.7 06/03/2019 LACTICACID 0.7 06/03/2019 No results for input(s): INR, PTT in the last 72 hours. Labs Last Refreshed: CBC - 10/08/2019, BMP - 10/08/2019, CMP - - -, Coag - 08/11/2019 [facility] Work Phone: [phone] 615-152003-21-2024 Note* Brief Op Note - Samina Marina PA-C - 09/26/2023 2:25 PM EDT Brief Post Operative Note Patient Name: Johnathan Gonzalez : 1975 (48 y.o.) Date of Service: 09/26/2023 CSN: [id number] Procedure(s): RIGHT CRANIOPLASTY. *PERIOPERATIVE GLYCEMIC PROTOCOL* Pre-Operative Diagnoses: * Skull defect [M95.2] Post-Operative Diagnoses: * Skull defect [M95.2] Surgeon(s) and Role: * Wilton Rankin MD - Primary * Samina Marina PA-C - Assisting Anesthesiologist: Gaurav Negrete MD Installer Interior Assemblies: David Gallardo RN; Ashkan Sherman RN Installer Interior Assemblies Relief: Alejandra Duenas RN Scrub Person Relief: Daysi Pugh ST; Haritha Balderas RN Installer Interior Assemblies Orientee: Ana Maria Hampton RN Daytime Babysitter: Hal Mendoza Operative findings: replacement of right bone flap Intra and immediate post-operative complications: none Type of anesthesia used: General Estimated blood loss: 100 mL Estimated urine output: 250 mL Specimen(s): * No specimens in log * Implant(s): Implant Name Type Inv. Item Serial No. Renal Dialysis Technician Lot No. LRB No. Used Action HEMOSTAT 8 X 12.5CM X 2MM SURGIFOAM GELATIN SPONGE CS/6 - [id number] HEMOSTAT 8 X 12.5CM X 2MM SURGIFOAM GELATIN SPONGE CS/6 NA [employer] [id number] Right 1 Implanted SEALANT 10ML HEMOSTATIC MATRIX FAST PREP FLOSEAL W/RECOTHROM - SNA SEALANT 10ML HEMOSTATIC MATRIX FAST PREP FLOSEAL W/RECOTHROM NA HAWKINS BIO [id number] Right 1 Implanted SYNTHES PEEK CRANIAL IMPLANT NA [place]THES [place] [id number] Right 1 Implanted KIT 10ML TISSEEL FROZEN W/ PRIMA SYRINGE - [id number] KIT 10ML TISSEEL FROZEN W/ PRIMA [id number] HAWKINS BIO [id number] Right 1 Implanted PLATE 2HL MATRIXNEURO STR - SNA PLATE 2HL MATRIXNEURO STR NA SYNTHES MA NA Right 5 Implanted SCREW 4MM TI SELF-DRILL MATRIXNEURO - SNA SCREW 4MM TI SELF-DRILL MATRIXNEURO NA SYNTHES MA NA Right 10 Implanted Drain(s): ANDRE x 1 Closed/Suction Drain 1 Right Head - frontal 7 Fr. (Active) Urethral Catheter Non-latex 16 Fr. (Active) Wound(s): closed with jose luis, bacitracin, coverlet x 2 Wound 09/26/23 1 Incision Head Right (Active) Wound Closure Sutures;Otis 09/04/23 0003 Samina Marina PA-C 09/26/2023 2:25 PM Associated attestation - Wilton Rankin MD - 09/26/2023 6:44 PM EDT NEUROSURGERY STAFF Patient is awake, alert Speech fluent Moves RUE, RLE with full strength Left hemiplegia (baseline) Postop CT with expected changes IMP: Stable Postop course PLAN: To Neuro ICU; pain control; q1h neuro checks; mobilize as able Wilton Rankin MD [id number] Note* Op Note - Wilton Rankin MD - 09/26/2023 12:46 PM EDT JOHNATHAN GONZALEZ [id number] 1975 DATE 09/26/2023 OPERATIVE REPORT SURGEON WILTON RANKIN MD, FAANS ASSISTANT HEALTH EDUCATOR SAMINA MARINA PA-C Due to the complexity of this procedure, PA assistance was required. PREOPERATIVE DIAGNOSIS Right middle cerebral artery stroke, skull defect. POSTOPERATIVE DIAGNOSIS Right middle cerebral artery stroke, skull defect. OPERATIVE PROCEDURE Right cranioplasty (greater than 5 cm). OPERATIVE INDICATIONS This is a 48-year-old man who suffered a right-sided middle cerebral artery stroke in 05/2019, for which he underwent an emergent right-sided hemicraniectomy as a lifesaving measure. He presents for elective replacement of bone flap (prefabricated). A detailed discussion of the risks, benefits, and alternatives was undertaken in the preoperative setting. His brother, Romie Gonzalez, who was the patient's POA, was present during informed consent discussion. He wished to proceed with surgery. OPERATIVE PROCEDURE DETAILS The patient was brought to the operating room. After appropriate identification, general endotracheal anesthesia was induced. The patient's head was then placed on a horseshoe headrest and all pressure points were padded appropriately. Hair was clipped in the right frontoparietal temporal region. The scalp was washed. Previous incision line was identified and it was remarked. The area was then sterilely prepped and draped in the usual fashion. It is important to note that the sterile prep was performed using a combination of alcohol, Hibiclens, and chlorhexidine. After a time-out was obtained, a #10 blade scalpel was used to incise the skin. Dissection was carried down sharply to the galea. Bipolar cautery was used for hemostasis as were Sanjay clips along the scalp edges. The scalp was carefully dissected off the underlying cortical surface. There was a good plane between the scalp and the cortical surface. This was developed from a posterior to anterior direction. A small amount of the temporalis muscle was also incised and retracted in a posteroinferior direction. Fish hooks were used for exposure purposes. At this point, the bony edges of the craniectomy defect were identified and thoroughly exposed. A small amount of residual epidural soft tissue was identified and was resected so that the prefabricated bone flap could be accommodated. Once this was performed in a circumferential fashion, the prefabricated bone flap was opened and I ensured that it fit nicely within the defect. Next, a series of tack-up stitches were placed in the residual dura and were brought up through the holes in the prefabricated implant and were tied down to affix the boneflap to the cata[place]ba skull. In addition, titanium miniplates and screws were used to fixate the bone flap to the cata[place]ba skull. A small amount of Tisseel was sprayed over the prefabricated implant after the wound was thoroughly irrigated with vancomycin-impregnated saline. Once hemostasis was obtained in the subgaleal space, a 7 mm ANDRE drain was left in the subgaleal space and tunneled out through a separate stab incision. The wound was then closed in layers with 2-0 Vicryl suture used to close the subcutaneous tissue in interrupted fashion. 3-0 Monocryl was used to close subcutaneous tissue. The skin was closed with jose luis. Dressings were applied. The patient was then transferred onto an awaiting gurney and taken to the recovery room in stable condition. COUNTS All needle and sponge counts were correct at the end of the procedure. ESTIMATED BLOOD LOSS 200 cc. WILTON RANKIN MD, FAANS D 09/26/2023 16:43 [id number] T 09/27/2023 00:30 GK/MODL [id number] Attending History and physical note* Wilton Rankin MD - 09/26/2023 11:11 AM EDT INTERVAL HISTORY AND PHYSICAL Patient Name: Johnathan Gonzalez Admit Date: 3200811 MR #: [id number] : 1975 The H&P has been reviewed and the patient has been examined. I concur with the findings of the H&P. There are no significant changes. It is appropriate to proceed with the planned procedure. Wilton Rankin MD 09/26/2023 11:11 AM Source Note - Wilton Rankin MD - 09/25/2023 6:00 PM EDT [facility] Work Phone: 1(385) 338-893203-21-2024 History and physical note* Wilton Rankin MD - 09/26/2023 11:11 AM EDT INTERVAL HISTORY AND PHYSICAL Patient Name: Johnathan Gonzalez Admit Date: 3200811 MR #: [id number] : 1975 The H&P has been reviewed and the patient has been examined. I concur with the findings of the H&P. There are no significant changes. It is appropriate to proceed with the planned procedure. Wilton Rankin MD 09/26/2023 11:11 AM Source Note - Wilton Rankin MD - 09/25/2023 6:00 PM EDT documented in this [id number] History of Present illness Narrative* Jenny Sahu RN - 09/25/2023 1:30 PM EDT Opened in error. documented in this [id number] Note* Pre-Procedure Instructions - Shaun Wolff RN - 09/24/2023 1:53 PM EDT Requested med list and H&P from [facility] [id number] Note* Pre-Procedure Instructions - Shaun Wolff RN - 09/23/2023 3:30 PM EDT Spoke with [facility] and requested med list [id number] Note* Pre-Procedure Instructions - Estefania Wilson RN - 09/18/2023 1:35 PM EDT Received 08/27 H&P for patient's upcoming surgery on 09/25. Reviewed with PAT nurse grain manager since there is a handwritten note dated 09/17 from the provider. LMVM to advise surgeon's office that patient will need a new H&P completed since the current PAT will be 31 days old on surgery day. If the patient's facility isn't able to complete this, surgeon could consider direct admitting patient prior to surgery day for hospitalist to complete, if appropriate. [id number] History and physical note Author IKE PEPPER [facility] June 28, 2023 8:33pm Note Date/Time June 25, 2023 6:48am [facility] [address] [place], [place] [id number] HEALTH INFORMATION MANAGEMENT HISTORY AND PHYSICAL : [id number] Signed Patient: JOHNATHAN GONZALEZ Acct:[id number] MRUN: [id number] : 1975 Sex: M Loc: 4TH FLOOR ADM Date: 06/25/23 Room/Bed: 427-A DISC Date: 06/28/23 History of Present Illness Date Of Admission: 06/25/23 Primary Care Physician: ROSITA PALMA Chief Complaint: nausea/vomiting/htn History of Present Illness: Visit History JOHNATHAN GONZALEZ is a 48 year old M patient of ROSITA PALMA PA-C. Patient was admitted from to room [facility], bed A on 06/25/23 04:55. Pt was evaluated for complaints of , then admitted to [facility] for 1.NAUSEA VOMITING #2 DIAPHORESIS #3 BRIEF RUN OF. JOHNATHAN was admitted as a ADM to [facility] for further evaluation and treatment. Pt was seen and evaluated on 06/25/23 0641, by this provider, RUFUS MELENDEZ CNP. This is a 48-year-old male patient brought to emergency department for complaints of nausea vomiting and hypertension. Patient resides at [facility]. Patient was recently here on 06/22/2023 for complaints of chest pain was seen by cardiology had medication adjustments and was discharged on 06/24/2023. Patient states that today he started vomiting was very diaphoretic and [facility] it was [facility] so he was sent to the emergency department for evaluation and treatment. Upon arrival at the emergency department patient's blood pressure was 193/116. No further episodes of vomiting. Denies abdominal pain does admitto nausea. Chest x-ray was negative for acute processes abdominal x-ray showed large volume of retained fecal material within the colon suggest signs of constipation. Laboratory workup is remarkable for white blood cell count of 14.3 glucose of 160 AST of 118 ALT of 117 alkaline phosphatase of 123. Rapid influenza and COVID testing are negative. Patient resides at [facility]. Denies tobacco alcohol or illicit drug use. Denies contact with sick individuals. Patient has a past medical history that includes hypertension, CVA, GERD, neurological surgery, explosive disorders, behaviors, anxiety, and depression. Allergies/Adverse Reactions: No Known Allergies Allergy (Verified 04/26/19 04:44) Home Medications: Patient History Acetaminophen [Aphen] 650 mg PO Q4H PRN 02/08/22 [History Confirmed 06/22/23] Bisacodyl [Onelax] 10 mg RC Q24H PRN 02/08/22 [History Confirmed 06/22/23] Famotidine [Pepcid AC] 40 mg PO DAILY 02/08/22 [History Confirmed 06/22/23] Levetiracetam [Keppra] 500 mg PO BID 02/08/22 [History Confirmed 06/22/23] Magnesium Hydroxide [Milk of Magnesia] 30 ml PO Q24H PRN 02/08/22 [History Confirmed 06/22/23] Melatonin 5 mg PO QHS 02/08/22 [History Confirmed 06/22/23] Menthol [Biofreeze] 1 applic TP BID 02/08/22 [History Confirmed 06/22/23] Rivastigmine Tartrate [Rivastigmine] 6 mg PO BID 02/08/22 [History Confirmed 06/22/23] Albuterol Sulfate [Albuterol Sulfate Hfa] 8.5 gm IH Q4H PRN 02/10/23 [History Confirmed 06/22/23] Divalproex Sodium [Divalproex Sodium ER] 500 mg PO TID 02/10/23 [History Confirmed 06/22/23] Duloxetine HCl [Cymbalta] 60 mg PO DAILY 02/10/23 [History Confirmed 06/22/23] Medroxyprogesterone Acetate [Provera] 10 mg PO BID 02/10/23 [History Confirmed 06/22/23] Polyethylene Glycol 3350 [Miralax Packet 17 gm] 1 packet PO DAILY PRN 02/10/23 [History Confirmed 06/22/23] Potassium Chloride [Kdur 20 Meq Tablet] 10 meq PO DAILY 02/10/23 [History Confirmed 06/22/23] Zofran 4 mg Odt 4 cap PO .PER.INSTRUCTIONS PRN 02/10/23 [History Confirmed 06/22/23] Aspirin [Adult Low Dose Aspirin EC] 81 mg PO DAILY 06/22/23 [History Confirmed 06/22/23] Baclofen 5 mg PO BID 06/22/23 [History Confirmed 06/22/23] Benzocaine/Menthol/Zinc Chlor [Orajel 3X Mouth Sores Gel] 1 applic PO QID PRN 06/22/23 [History Confirmed 06/22/23] Guaifenesin [Adult Tussin] 10 ml PO RTQ4 PRN 06/22/23 [History Confirmed 06/22/23] Hydrocortisone [Hydrocortisone 1% Ointment] 1 applic TP QID PRN 06/22/23 [History Confirmed 06/22/23] Ibuprofen [Ibu] 800 mg PO QID PRN 06/22/23 [History Confirmed 06/22/23] Magnesium Hydroxide [Milk of Magnesia] 30 ml PO DAILY PRN 06/22/23 [History Confirmed 06/22/23] Nitroglycerin [Nitrostat] See Rx Instructions .ROUTE .COMPLEX PRN 06/22/23 [History Confirmed 06/22/23] Simethicone [Gas-X Ultra Strength] 180 mg PO TID 06/22/23 [History Confirmed 06/22/23] RX history Finasteride [Proscar 5 mg Tablet] 5 mg PO DAILY tablet 02/16/22 [Rx Confirmed 06/22/23] Tamsulosin HCl [Flomax] 0.4 mg PO DAILY 30 Days #30 capsule 02/16/22 [Rx Confirmed 06/22/23] Amlodipine Besylate [Norvasc 5 mg Tablet] 5 mg PO DAILY tablet 06/24/23 [Rx] Atorvastatin Calcium [Lipitor 40 mg Tablet] 40 mg PO QHS tablet 06/24/23 [Rx] Past Social History Highest Educational Level: High School Able to Read: Yes Able to Write: Yes Alcohol Use: Never - [place]/Gender ID What is your current Gender Identity? Choose all that Apply: Male Define your Sexual Orientation?: Straight/Heterosexual - [place]-Suicide Severity Rating Scale 1) Wish to be :: No 2) Suicidal Thoughts:: No 6) Suicidal Behavior Question (A): LIFETIME: No 6) Suicidal Behavior Question (B): PAST 3 MONTHS: No Past Medical History Hx Ear/Nose/Throat Disorders: No Hx Neurological Disorder: Yes PMH-Neurological: Confirms: CVA, Headaches PSH-Neurological: Confirms: Neurological Surgery Hx Psychosocial Problems: No PMH--Psychological & Treatments: Confirms: Anxiety, Depression PMH--Other-Psyc:: EXPLOSIVE DISORDER, BEHAVIORS Hx Cardiac Disorders: Yes PMH--Cardiovascular: Confirms: HTN Hx Respiratory Disorders: No Hx Endocrine Disorders: No Hx Musculoskeletal Disorders: Yes PSH--Other-MS:: CRANIOTOMY ON RIGHT, WEARS HELMET WHEN OUT OF BED Hx Reproductive Disorders: No Hx Genitourinary Disorders: No PMH--Other-:: back pain Hx Gastrointestinal Disorders: No PMH--Gastrointestinal: Confirms: GERD Hx Cancer: No Other PMH: Confirms: Chicken Pox Family Medical History - Family Medical History No Significant Family History Ethnicity: Pt declinded to provide Review of Systems General: Confirms: Chills, Sweats, Weakness, Fatigue. Denies: Fever Head/Eye: Denies: Headache, Head Injury/Trama, Hear Loss, Pain, Itching, Redness, Matting, Blurry Vision, Double Vision, Scotoma (Spots), Amauriosis, Excessive Tearing, Other ENT: Denies: Earache, Ear Discharge, Decreased Hearing, Tinnitus, Nose Congestion, Nose Drainage, Nasal Ulcers, Epitaxis, Sore Throat, Throat Swelling, Hoarseness, Loss Of Voice, Tongue Pain, Tongue Swelling, Lip Swelling, Dental Pain, Cervical, Other Respiratory: Denies: Cough, Shortness of Breath, Wheezing, Sputum Production, Hemoptysis, Dyspnea on Exertion, Pleuritic Pain, Other Cardiovascular: Denies: Chest Pain-Sharp, Chest Pain-Heavy, Orthopnea, Short of Breath, Dyspnea on Exertion, Paroxysmal Noc. Dyspnea, Edema, Palpitations, Light Headedness, 7, Syncope, Diaphoresis, Claudication, Edema, Other Gastrointestinal: Confirms: Nausea, Vomiting, Constipation. Denies: Abdominal Pain, Diarrhea Genitourinary: Denies: Dysuria, Frequency, Incontinence, Hematuria, Retention, Urgency, Other Musculoskeletal: Denies: Neck Pain, Shoulder Pain, Arm Pain, Back Pain, Hand Pain, Leg Pain, Foot Pain, Other Skin: Denies: Rash, Lesions, Jaundice, Bruising, Other Neurological: Denies: Weakness, Numbness, Incoordination, Change in Speech, Confusion, Seizures, Other Physical Exam Review of Systems Completed?: Yes Vital Signs: Vital Signs (72 hours) 06/25/23 06/25/23 06/25/23 03:19 03:24 03:30 Temperature 98.5 F Pulse Rate 68 77 Pulse Rate [ 76 Pulse Ox] Respiratory 18 Rate Blood Pressure Blood Pressure 193/116 H [Left Arm] O2 Sat by Pulse 94 L 94 L 95 Oximetry(%) 06/25/23 06/25/23 06/25/23 03:36 03:45 03:50 Temperature Pulse Rate 65 66 Pulse Rate [ Pulse Ox] Respiratory Rate Blood Pressure 143/92 H Blood Pressure [Left Arm] O2 Sat by Pulse 97 97 97 Oximetry(%) 06/25/23 06/25/23 06/25/23 03:51 04:00 04:03 Temperature Pulse Rate 73 69 Pulse Rate [ 67 Pulse Ox] Respiratory 16 Rate Blood Pressure 126/102 H Blood Pressure 143/92 H [Left Arm] O2 Sat by Pulse 97 97 99 Oximetry(%) 06/25/23 06/25/23 06/25/23 04:10 04:20 04:25 Temperature Pulse Rate 57 L 72 64 Pulse Rate [ Pulse Ox] Respiratory Rate Blood Pressure 137/95 H Blood Pressure [Left Arm] O2 Sat by Pulse 95 96 97 Oximetry(%) 06/25/23 06/25/23 06/25/23 04:30 04:40 04:50 Temperature Pulse Rate 63 74 69 Pulse Rate [ Pulse Ox] Respiratory Rate Blood Pressure Blood Pressure [Left Arm] O2 Sat by Pulse 96 96 98 Oximetry(%) 06/25/23 06/25/23 05:00 05:10 Temperature Pulse Rate 89 62 Pulse Rate [ Pulse Ox] Respiratory Rate Blood Pressure 134/95 H Blood Pressure [Left Arm] O2 Sat by Pulse 96 97 Oximetry(%) General: Yes: Alert, Oriented, Cooperative/Pleasant, No acute distress HEENT: Yes: Atraumatic, PERRLA, Mucous membr. moist/pink, EOMI Lungs: Yes: Unlabored, Diminished Cardiovascular: Yes: Regular rate, Normal S2, Normal S1. No: No murmurs, Gallops, Rubs Abdomen: Yes: Bowel Sounds X4, No Tenderness, Nausea/Vomiting Extremities: Yes: Normal pulses. No: Clubbing, Cyanosis, Edema, No tenderness/swelling, Mottling noted Skin: No: Rashes, Skin Breakdown, Significant lesions, Open Wound Present, Skin Tear Neurological: Yes: Speech Clear, Cognitive Ability Intact Psych/Mental Status: Yes: Mental status NL, Mood Appropriate Genitourinary/Rectal: Yes: Voiding Breast Exam: Yes: Deferred-Not Relevant Impressions - Problems (1) Constipation Status: Acute Priority: High Present on admission?: Yes Current Visit: Yes (2) Hypertension Status: Acute Priority: High Present on admission?: Yes Current Visit: Yes (3) Nausea and vomiting Status: Acute Priority: High Present on admission?: Yes Current Visit: Yes (4) Leukocytosis Problems: Leukocytosis type: unspecified Qualified Code(s): D72.829 - Elevated white blood cell count, unspecified Status: Acute Priority: High Present on admission?: Yes Current Visit: Yes (5) Transaminitis Status: Acute Priority: High Present on admission?: Yes Current Visit: Yes Plan/Treatment Current Plan: See New Orders Plan: 1. Intractable nausea and vomiting/constipation: Patient presented to the emergency department with complaints of intractable nausea and vomiting. Deniesabdominal pain. Denies pain on palpation. Bowel sounds active x 4. X-ray of the abdomen showed a large stool burden consistent with constipation. Will start patient on normal saline at 80 MLS per hour for hydration docusate twice daily for constipation. Will start patient on a clear liquid diet advance diet as tolerated. 2. Leukocytosis: Patient's white blood cell count elevated at 14.3. Urinalysison his last stay on 06/22/2023 was positive for protein ketones bilirubin leukocyte Estrace 2+ bacteria and 2-5 white blood cells. Culture and sensitivity came back as a probable contamination and suggested new specimen. Will obtain a new UA start patient on ceftriaxone and await urinalysis with culture and sensitivity. 3. Transaminitis: Patient still presents with transaminitis AST elevated at 118ALT 117 alkaline phosphatase 123. 4. Hypertension: Continue home medications 5. DVT prophylaxis: Lovenox 6. GI prophylaxis: Famotidine Visit Coding - VISIT CODING Date of Service: 06/25/23 Billing Provider:: RUFUS MELENDEZ Common Visit Codes: [id number] INP/OBS CARE (HIGH) Electronically Generated By:RUFUS MELENDEZ CNP Generated Date/Time: 06/25/23 0641 Electronically Signed By: <Electronically signed by RUFUS MELENDEZ CNP> 06/25/23 0710 <Electronically signed by IKE PEPPER MD> 06/28/232032 Co Signed Electronically By: Co Signed Date/Time: CC: ROSITA PALMA PA-C; JAMIR CALDERA DO [facility] Work Phone: 1(911) 926-835312-22-2023 Progress note Author IKE PEPPER [facility] June 28, 2023 8:33pm Note Date/Time June 25, 2023 9:44pm [facility] [address] [place] [address] HEALTH INFORMATION MANAGEMENT PROGRESS NOTE : [id number] Signed Patient: JOHNATHAN GONZALEZ Acct:[id number] MRUN: [id number] : 1975 Sex: M Loc: 4TH FLOOR ADM Date: 06/25/23 Room/Bed: 427-A DISC Date: 06/28/23 Subjective Assessment Date Of Service: 06/25/23 Events Since Admission: JOHNATHAN GONZALEZ was admitted to MEDICAL SURGICAL service into room 427 on 06/25/23 at 04:55 for complaints of 1. NAUSEA VOMITING #2 DIAPHORESIS #3 BRIEF RUN OF. The patient's laboratory testing and diagnostic testing has been reviewed. Status: Condition Unchanged Condition: Fair General: Denies: Fever, Chills, Sweats, Weakness, Fatigue, Weight Gain, Weight Loss, Other ENT: Denies: Earache, Ear Discharge, Decreased Hearing, Tinnitus, Nose Congestion, Nose Drainage, Nasal Ulcers, Epitaxis, Sore Throat, Throat Swelling,Hoarseness, Loss Of Voice, Tongue Pain, Tongue Swelling, Lip Swelling, Dental Pain, Cervical, Other Respiratory: Denies: Cough, Shortness of Breath, Wheezing, Sputum Production, Hemoptysis, Dyspnea on Exertion, Pleuritic Pain, Other Cardiovascular: Denies: Chest Pain-Sharp, Chest Pain-Heavy, Orthopnea, Short of Breath, Dyspnea on Exertion, Paroxysmal Noc. Dyspnea, Edema, Palpitations, LightHeadedness, Syncope, Diaphoresis, Claudication, Edema, Other Gastrointestinal: Confirms: Nausea, Vomiting, Constipation. Denies: Abdominal Pain Genitourinary: Denies: Dysuria, Frequency, Incontinence, Hematuria, Retention, Other Musculoskeletal: Denies: Neck Pain, Shoulder Pain, Arm Pain, Back Pain, Hand Pain, Leg Pain, Foot Pain, Other Neurological: Denies: Weakness, Numbness, Incoordination, Change in Speech, Confusion, Seizures, Other Objective Findings Sepsis focused exam performed?: No Review of Systems Completed?: Yes General: Yes: Alert, Oriented, Cooperative/Pleasant, Mild distress HEENT: Yes: Atraumatic, PERRLA, EOMI, PERRL, Mucous membr. moist/pink Neck: Yes: Supple, +2 carotid pulse wo bruit. No: JVD, Thyromegaly Lungs: Yes: Clear to auscultation, Normal air movement, Unlabored. No: Exibits Shortness of [place], Pursed Lip Breathing, Use of Accessory Muscles, Retracting Cardiovascular: Yes: Regular rate, Normal S2, Normal S1, No murmurs, Window Draper Rhythm (Sinus Rhythm). No: Gallops, Rubs, Ectopy Abdomen: Yes: Bowel Sounds X4, Soft, Tenderness Noted (Mild diffuse upper abdomen), Flatus. No: Hepatospenomegaly, Masses, Nausea/Vomiting, Emesis Present, Constipation, Diarrhea Genitourinary/Rectal: Yes: Genitalia (Normal For Gender), Voiding (Sufficiently). No: Genital Discharge, Bladder Distention Extremities: Yes: Normal pulses. No: Clubbing, Cyanosis, Edema, No tenderness/swelling, Mottling noted Skin: No: Rashes, Skin Breakdown, Significant lesions, Open Wound Present Neurological: Yes: Normal Gait, Speech Clear, Strength Normal X4 ext, Normal tone, Sensation intact, Cranial nerves 3-12 NL, Reflexes 2+, Cognitive Ability Intact Psych/Mental Status: Yes: Mental status NL, Mood Appropriate. No: Hallucinations Vitals and I&O: Vital Signs Temperature 98.6 F 06/25/23 20:02 Pulse Rate 69 06/25/23 20:02 Respiratory Rate 20 06/25/23 20:02 Blood Pressure 136/93 H 06/25/23 20:07 O2 Sat by Pulse Oximetry(%) 95 06/25/23 20:02 FiO2 - Manual Entry Intake & Output 06/24/23 06/25/23 06/25/23 23:59 11:59 23:59 Intake Total 1580 580 Output Total 200 Balance 1580 380 Weight 202 lb 3.2 oz Intake: IV Intake 1100 Rocephin 2 Gram Injection 100 2 gm In Sodium Chloride 0.9 % 100 ml 100 ml @ 100 mls/hr IVPB Q24H ELIER Rx# :[id number] Sodium Chloride 0.9 % 1000 1000 ml 1,000 ml @ 999 mls/hr IV .Q1H1M STA Rx#: [id number] Intake ml 480 580 Output: Output ml 200 Urine 200 Other: Output Urine Nonnumeric/ Comment Urine inc x1 Laboratory-Last 48 hrs: 06/25/23 03:40 06/25/23 03:40 Laboratory Results-last 24 hrs 06/25/23 03:40: Glucose 160 H, AST 118 H, ALT 117 H, Alkaline Phosphatase 123 H,Albumin 2.5 L, Albumin/Globulin Ratio 0.6 L 06/25/23 03:40: WBC 14.3 H, Neut % (Auto) 84.2 H, Lymph % (Auto) 10.4 L, [place] % (Auto) 4.4 L, Eos % (Auto) 0.6 L, Baso % (Auto) 0.1 L, Absolute Neuts (auto) 12.00 H 06/25/23 16:40: Urine Bilirubin 1 A Radiology-Impressions: See radiology reports in electronic medical record. Impressions - Problems (1) Constipation Problems: Constipation type: unspecified constipation type Qualified Code(s): K59.00 - Constipation, unspecified Status: Acute Priority: High Onset Date: ~06/25/23 Present on admission?: Yes Current Visit: Yes (2) Leukocytosis Problems: Leukocytosis type: bandemia Qualified Code(s): D72.825 - Bandemia Status: Acute Priority: High Current Visit: Yes (3) Nausea and vomiting Problems: Vomiting type: unspecified Qualified Code(s): R11.2 - Nausea with vomiting,unspecified Status: Acute Priority: High Onset Date: ~06/25/23 Present on admission?: Yes Current Visit: Yes Plan/Treatment Current Plan: Continue Current Course of Treatment Plan: Patient had a new onset of nausea vomiting not terribly long after he arrived [facility] last night. He was in the hospital for chest pain evaluation and he had no symptoms of this on the when I did a rather extensive evaluation and spent a fair amount of time with him. He is described that he has had no hematemesis but his vomit was very bitter and dark he has had his gallbladder out. I suspect that this is more reflective of bilious vomiting rather than old blood. He had a borderline in the near urinalysis for UTI so wewill just optimize his gastritis/antiacid therapy and see how his symptoms do inthe next 24 hours. If he is still having persistent symptoms, we may consider surgical evaluation for possible EGD. If his symptoms resolve, will once again try to get him back to the long term facility for rehab. New Orders: New Orders-Lab 06/26/23 04:00 Albumin [CHM] DAILY@0400 New Orders-Nursing Care 06/25/23 16:26 NPO after Midnight [RC] ONE 06/26/23 00:01 Nothing Per Oral [DIET] Medications 06/25/23 16:45 Pantoprazole Sodium [Protonix 40 mg Injection] 40 mg IVP PROTONIX-BID Visit Coding - VISIT CODING Date of Service: 06/25/23 Billing Provider:: IKE PEPPER Common Visit Codes: [id number] INP/OBS CARE(HIGH) Electronically Generated By:IKE PEPPER MD Generated Date/Time: 06/25/232140 Electronically Signed By: <Electronically signed by IKE PEPPER MD> 06/28/232032 Co Signed Electronically By: Co Signed Date/Time: CC: [facility] Work Phone: 1(409) 113-229112-22-2023 Progress note Author IKE PEPPER [facility] June 28, 2023 8:33pm Note Date/Time June 26, 2023 10:37pm [facility] [address] [place] [id number] HEALTH INFORMATION MANAGEMENT PROGRESS NOTE : [id number] Signed Patient: JOHNATHAN GONZALEZ Acct:[id number] MRUN: [id number] : 1975 Sex: M Loc: 4TH FLOOR ADM Date: 06/25/23 Room/Bed: 427-A DISC Date: 06/28/23 Subjective Assessment Date Of Service: 06/26/23 Events Since Admission: JOHNATHAN GONZALEZ was admitted to MEDICAL SURGICAL service into room 427 on 06/25/23 at 04:55 for complaints of 1. NAUSEA VOMITING #2 DIAPHORESIS #3 BRIEF RUN OF. The patient's laboratory testing and diagnostic testing has been reviewed. Status: Change In Condition Noted, New Medications Ordered, New Labs Ordered, Consult Ordered Condition: Fair General: Confirms: Weakness, Fatigue ENT: Denies: Earache, Ear Discharge, Decreased Hearing, Tinnitus, Nose Congestion, Nose Drainage, Nasal Ulcers, Epitaxis, Sore Throat, Throat Swelling,Hoarseness, Loss Of Voice, Tongue Pain, Tongue Swelling, Lip Swelling, Dental Pain, Cervical, Other Respiratory: Denies: Cough, Shortness of Breath, Wheezing, Sputum Production, Hemoptysis, Dyspnea on Exertion, Pleuritic Pain, Other Cardiovascular: Denies: Chest Pain-Sharp, Chest Pain-Heavy, Orthopnea, Short of Breath, Dyspnea on Exertion, Paroxysmal Noc. Dyspnea, Edema, Palpitations, LightHeadedness, Syncope, Diaphoresis, Claudication, Edema, Other Gastrointestinal: Confirms: Nausea, Abdominal Pain Genitourinary: Denies: Dysuria, Frequency, Incontinence, Hematuria, Retention, Other Musculoskeletal: Denies: Neck Pain, Shoulder Pain, Arm Pain, Back Pain, Hand Pain, Leg Pain, Foot Pain, Other Neurological: Denies: Weakness, Numbness, Incoordination, Change in Speech, Confusion, Seizures, Other Objective Findings Sepsis focused exam performed?: Yes Review of Systems Completed?: Yes General: Yes: Alert, Oriented, Cooperative/Pleasant, No acute distress HEENT: Yes: Atraumatic, PERRLA, EOMI, PERRL, Mucous membr. moist/pink Neck: Yes: Supple, +2 carotid pulse wo bruit. No: JVD, Thyromegaly Lungs: Yes: Clear to auscultation, Normal air movement, Unlabored. No: Exibits Shortness of [place], Pursed Lip Breathing, Use of Accessory Muscles, Retracting Cardiovascular: Yes: Regular rate, Normal S2, Normal S1, No murmurs, Window Draper Rhythm (Sinus Rhythm). No: Gallops, Rubs, Ectopy Abdomen: Yes: Bowel Sounds X4, Soft, No Tenderness, Flatus. No: Hepatospenomegaly, Masses, Nausea/Vomiting, Emesis Present, Constipation, Diarrhea Genitourinary/Rectal: Yes: Genitalia (Normal For Gender), Voiding (Sufficiently). No: Genital Discharge, Bladder Distention Extremities: Yes: Normal pulses. No: Clubbing, Cyanosis, Edema, No tenderness/swelling, Mottling noted Skin: No: Rashes, Skin Breakdown, Significant lesions, Open Wound Present Neurological: Yes: Speech Clear, Strength Normal X4 ext, Sensation intact, Cranial nerves 3-12 NL, Reflexes 2+, Cognitive Ability Intact. No: Normal Gait,Normal tone Psych/Mental Status: Yes: Mental status NL, Mood Appropriate. No: Hallucinations Vitals and I&O: Vital Signs Temperature 97.4 F L 06/26/23 20:30 Pulse Rate 71 06/26/23 20:30 Respiratory Rate 17 06/26/23 20:30 Blood Pressure 136/88 06/26/23 21:09 O2 Sat by Pulse Oximetry(%) 99 06/26/23 20:30 FiO2 - Manual Entry Intake & Output 06/25/23 06/26/23 06/26/23 23:59 11:59 23:59 Intake Total 1580 0 1340 Output Total 991 212 9170 Balance 1130 -300 165 Weight 199 lb 8 oz Intake: IV Intake 1000 1100 Rocephin 2 Gram Injection 100 2 gm In Sodium Chloride 0.9 % 100 ml 100 ml @ 100 mls/hr IVPB Q24H ELIER Rx# :[id number] Sodium Chloride 0.9 % 1000 1000 1000 ml 1,000 ml @ 80 mls /hr IV .[id number] PRN Rx#: [id number] Intake ml 580 0 240 Oral 0 Output: Output ml 470 680 1479 Urine 018 149 0168 Other: Oral Intake Size Oral Medium Small Output Urine Nonnumeric/ Comment Stool BM x 1, lg BM x 1 LG Urine inc x1 Laboratory-Last 48 hrs: 06/26/23 06:21 06/26/23 06:21 Laboratory Results-last 24 hrs 06/25/23 03:40: Glucose 160 H, AST 118 H, ALT 117 H, Alkaline Phosphatase 123 H,Albumin 2.5 L, Albumin/Globulin Ratio 0.6 L 06/25/23 03:40: WBC 14.3 H, Neut % (Auto) 84.2 H, Lymph % (Auto) 10.4 L, [place] % (Auto) 4.4 L, Eos % (Auto) 0.6 L, Baso % (Auto) 0.1 L, Absolute Neuts (auto) 12.00 H 06/25/23 16:40: Urine Bilirubin 1 A 06/26/23 06:21: RBC 3.95 L, Hgb 11.9 L, Hct 36.5 L, MCHC 32.6 L, Plt Count 133 L 06/26/23 06:21: Creatinine 1.29 H, Est GFR (MDRD) Non-Af 59 A, Glucose 105 H 06/26/23 06:21: Albumin 2.1 L Radiology-Impressions: See radiology reports in electronic medical record. Impressions - Problems (1) Acute gastritis with bleeding Problems: Gastritis type: other gastritis Qualified Code(s): K29.01 - Acute gastritiswith bleeding Status: Acute Priority: High Onset Date: ~06/25/23 Present on admission?: Yes Current Visit: Yes (2) Leukocytosis Problems: Leukocytosis type: bandemia Qualified Code(s): D72.825 - Bandemia Status: Acute Priority: High Onset Date: ~06/25/23 Current Visit: Yes (3) Constipation Problems: Constipation type: unspecified constipation type Qualified Code(s): K59.00 - Constipation, unspecified Status: Acute Priority: High Onset Date: ~06/25/23 Present on admission?: Yes Current Visit: Yes (4) Nausea and vomiting Problems: Vomiting type: unspecified Qualified Code(s): R11.2 - Nausea with vomiting,unspecified Status: Acute Priority: High Onset Date: ~06/25/23 Current Visit: Yes (5) UTI (urinary tract infection) Problems: Urinary tract infection type: acute cystitis Hematuria presence: without hematuria Qualified Code(s): N30.00 - Acute cystitis without hematuria Status: Acute Priority: High Onset Date: ~06/25/23 Present on admission?: Yes Current Visit: Yes (6) BPH (benign prostatic hyperplasia) Problems: Lower urinary tract symptom presence: symptoms present Lower urinary tract symptom detail: weak urinary stream Qualified Code(s): N40.1 - Benign prostatic hyperplasia with lower urinary tract symptoms; R39.12 - Poor urinary stream Status: Chronic Priority: Medium Present on admission?: Yes Current Visit: Yes (7) Hypertension Problems: Hypertension type: primary hypertension Qualified Code(s): I10 - Essential (primary) hypertension Status: Chronic Priority: Medium Present on admission?: Yes Current Visit: Yes (8) Depression Problems: Depression Type: major depressive disorder Major depression recurrence: recurrent Active/Remission status: in full remission Qualified Code(s): F33.42 - Major depressive disorder, recurrent, in full remission Status: Chronic Priority: Medium Present on admission?: Yes Current Visit: Yes Plan/Treatment Current Plan: Continue Current Course of Treatment Plan: Patient to seems to be feeling a bit better but his blood count dropped a couplepoints from yesterday. He was vomiting some rather dark material which suggestsblood. I consulted Dr. Caldera for an EGD which was performed which revealed gastritis but at the time there was no active bleeding or obvious significant ulcerations. If his H&H remained stable by tomorrow, he may be able to go back to [facility]. His urine culture is growing gram-positive cocci so we willswitch him to amoxicillin from Rocephin since he is having trouble maintaining an IV and Enterococcus is universally resistant to Rocephin. New Orders: New Orders-Nursing Care 06/26/23 22:32 No Added Salt [DIET] Medications 06/26/23 22:29 Amoxicillin Trihydrate [Amoxil 250 mg Capsule] 250 mg PO STAT STA 06/26/23 22:30 Magnesium Hydroxide [Milk of Magnesia] 30 ml PO DAILY PRN 06/27/23 06:00 Amoxicillin Trihydrate [Amoxil 250 mg Capsule] 250 mg PO TID Pantoprazole Sodium [Protonix 40 mg Tablet] 40 mg PO PROTONIX-ACBK Visit Coding - VISIT CODING Date of Service: 06/26/23 Billing Provider:: IKE PEPPER Common Visit Codes: [id number] INP/OBS CARE(HIGH) Electronically Generated By:IKE PEPPER MD Generated Date/Time: 06/26/232232 Electronically Signed By: <Electronically signed by IKE PEPPER MD> 06/28/232032 Co Signed Electronically By: Co Signed Date/Time: CC: [facility] Work Phone: [phone]) 731-212312-22-2023 Progress note Author IKE PEPPER [facility] June 28, 2023 8:33pm Note Date/Time June 28, 2023 1:26am [facility] [address] [place] [id number] HEALTH INFORMATION MANAGEMENT PROGRESS NOTE : [id number] Signed Patient: JOHNATHAN GONZALEZ Acct:[id number] MRUN: [id number] : 1975 Sex: M Loc: 4TH FLOOR ADM Date: 06/25/23 Room/Bed: 427-A DISC Date: 06/28/23 Subjective Assessment Date Of Service: 06/27/23 Events Since Admission: JOHNATHAN GONZALEZ was admitted to MEDICAL SURGICAL service into room 427 on 06/25/23 at 04:55 for complaints of 1. NAUSEA VOMITING #2 DIAPHORESIS #3 BRIEF RUN OF. The patient's laboratory testing and diagnostic testing has been reviewed. Status: Pt Condition Improving Condition: Fair General: Confirms: Weakness, Fatigue. Denies: Fever, Chills, Sweats, Weight Gain, Weight Loss, Other ENT: Denies: Earache, Ear Discharge, Decreased Hearing, Tinnitus, Nose Congestion, Nose Drainage, Nasal Ulcers, Epitaxis, Sore Throat, Throat Swelling,Hoarseness, Loss Of Voice, Tongue Pain, Tongue Swelling, Lip Swelling, Dental Pain, Cervical, Other Respiratory: Denies: Cough, Shortness of Breath, Wheezing, Sputum Production, Hemoptysis, Dyspnea on Exertion, Pleuritic Pain, Other Cardiovascular: Denies: Chest Pain-Sharp, Chest Pain-Heavy, Orthopnea, Short of Breath, Dyspnea on Exertion, Paroxysmal Noc. Dyspnea, Edema, Palpitations, LightHeadedness, Syncope, Diaphoresis, Claudication, Edema, Other Gastrointestinal: Denies: Nausea, Vomiting, Abdominal Pain, Diarrhea, Constipation, Melena, Hematochezia, Other Genitourinary: Denies: Dysuria, Frequency, Incontinence, Hematuria, Retention, Other Musculoskeletal: Denies: Neck Pain, Shoulder Pain, Arm Pain, Back Pain, Hand Pain, Leg Pain, Foot Pain, Other Neurological: Confirms: Confusion. Denies: Weakness, Numbness, Incoordination, Change in Speech, Seizures, Other Objective Findings Sepsis focused exam performed?: Yes Review of Systems Completed?: Yes General: Yes: Alert, Oriented, Cooperative/Pleasant, No acute distress HEENT: Yes: PERRLA, PERRL, Mucous membr. moist/pink, EOMI. No: Atraumatic (Old significant skull deformities) Neck: Yes: Supple Lungs: Yes: Clear to auscultation, Normal air movement, Unlabored. No: Exibits Shortness of [place], Pursed Lip Breathing, Use of Accessory Muscles, Retracting Cardiovascular: Yes: Regular rate, Normal S2, Normal S1, No murmurs, Window Draper Rhythm (Sinus Rhythm). No: Gallops, Rubs, Ectopy Abdomen: Yes: Bowel Sounds X4, Soft, No Tenderness, Flatus. No: Hepatospenomegaly, Masses, Nausea/Vomiting, Emesis Present, Constipation, Diarrhea Genitourinary/Rectal: Yes: Genitalia (Normal For Gender), Voiding (Sufficiently). No: Genital Discharge, Bladder Distention Extremities: Yes: Normal pulses. No: Clubbing, Cyanosis, Edema, No tenderness/swelling, Mottling noted Skin: No: Rashes, Skin Breakdown, Significant lesions, Open Wound Present Neurological: Yes: Speech Clear, Strength Normal X4 ext, Normal tone, Sensation intact, Cranial nerves 3-12 NL, Reflexes 2+, Cognitive Ability Intact Psych/Mental Status: Yes: Mental status NL Vitals and I&O: Vital Signs Temperature 97.7 F 06/27/23 23:50 Pulse Rate 67 06/27/23 23:50 Respiratory Rate 20 06/27/23 23:50 Blood Pressure 140/94 H 06/27/23 23:50 O2 Sat by Pulse Oximetry(%) 95 06/27/23 23:50 FiO2 - Manual Entry Intake & Output 06/27/23 06/27/23 06/28/23 11:59 23:59 11:59 Intake Total 180 1490 Output Total 350 450 Balance -170 1040 Weight 195 lb 8 oz Intake: Intake ml 180 1490 Oral 60 1130 Output: Output ml 350 450 Stool 0 Urine 350 450 Other: Output Urine Nonnumeric/ Comment Urine 250 Laboratory-Last 48 hrs: 06/27/23 08:08 06/26/23 06:21 Laboratory Results-last 24 hrs 06/26/23 06:21: RBC 3.95 L, Hgb 11.9 L, Hct 36.5 L, MCHC 32.6 L, Plt Count 133 L 06/26/23 06:21: Creatinine 1.29 H, Est GFR (MDRD) Non-Af 59 A, Glucose 105 H 06/26/23 06:21: Albumin 2.1 L 06/27/23 08:08: Plt Count 143 L Radiology-Impressions: See radiology reports in electronic medical record. Impressions - Problems (1) Acute gastritis with bleeding Problems: Gastritis type: other gastritis Qualified Code(s): K29.01 - Acute gastritiswith bleeding Status: Acute Priority: High Onset Date: ~06/25/23 Current Visit: Yes (2) Leukocytosis Problems: Leukocytosis type: bandemia Qualified Code(s): D72.825 - Bandemia Status: Acute Priority: High Onset Date: ~06/25/23 Current Visit: Yes (3) Constipation Problems: Constipation type: unspecified constipation type Qualified Code(s): K59.00 - Constipation, unspecified Status: Acute Priority: High Onset Date: ~06/25/23 Current Visit: Yes (4) Nausea and vomiting Problems: Vomiting type: unspecified Qualified Code(s): R11.2 - Nausea with vomiting,unspecified Status: Acute Priority: High Onset Date: ~06/25/23 Current Visit: Yes (5) UTI (urinary tract infection) Problems: Urinary tract infection type: acute cystitis Hematuria presence: without hematuria Qualified Code(s): N30.00 - Acute cystitis without hematuria Status: Acute Priority: High Onset Date: ~06/25/23 Current Visit: Yes (6) BPH (benign prostatic hyperplasia) Problems: Lower urinary tract symptom presence: symptoms present Lower urinary tract symptom detail: weak urinary stream Qualified Code(s): N40.1 - Benign prostatic hyperplasia with lower urinary tract symptoms; R39.12 - Poor urinary stream Status: Chronic Priority: Medium Current Visit: Yes (7) Hypertension Problems: Hypertension type: primary hypertension Qualified Code(s): I10 - Essential (primary) hypertension Status: Chronic Priority: Medium Current Visit: Yes (8) Depression Problems: Depression Type: major depressive disorder Major depression recurrence: recurrent Active/Remission status: in full remission Qualified Code(s): F33.42 - Major depressive disorder, recurrent, in full remission Status: Chronic Priority: Medium Current Visit: Yes Plan/Treatment Current Plan: Continue Current Course of Treatment Plan: Patient is feeling better today. His vitals, room air sats, cardiac rhythm and CBC are fairly normal. A bit of a concern is that there is some gram-positive cocci in his blood culture. I am not sure just yet if it is a contaminant versus a true pathogen but we may have a better idea about that by tomorrow and possibly some specific ID's can be obtained. We are going to have to reauthorize his stay at [facility] for him to go back there so if we get authorization and it turns out that the blood cultures might be contaminant, he could potentially go back to [place] by tomorrow which would be June 28. New Orders: New Orders-Nursing Care 06/27/23 17:54 Schedule Discharge Follow Up [RC] ONE 06/27/23 17:55 Discharge Patient [RC] ONE Schedule Discharge Follow Up [RC] ONE 06/27/23 18:00 Discharge Patient [RC] ONE 06/28/23 06:30 Discontinue Window Draper [RC] ONE Medications 06/28/23 06:00 Pantoprazole Sodium [Protonix 40 mg Tablet] 40 mg PO PROTONIX-ACBK Visit Coding - VISIT CODING Date of Service: 06/27/23 Billing Provider:: IKE PEPPER Common Visit Codes: [id number] INP/OBS CARE(HIGH) Electronically Generated By:IKE PEPPER MD Generated Date/Time: 06/28/23122 Electronically Signed By: <Electronically signed by IKE PEPPER MD> 06/28/232032 Co Signed Electronically By: Rubens Signed Date/Time: CC: [facility] Work Phone: 1(528) 401-191312-22-2023 Progress note Author IKE PEPPER [facility] June 28, 2023 8:33pm Note Date/Time June 25, 2023 9:44pm [facility] [address] [place] [id number] HEALTH INFORMATION MANAGEMENT PROGRESS NOTE : [id number] Signed Patient: JOHNATHAN GONZALEZ Acct:[id number] MRUN: [id number] : 1975 Sex: M Loc: 4TH FLOOR ADM Date: 06/25/23 Room/Bed: 427-A DISC Date: 06/28/23 Subjective Assessment Date Of Service: 06/25/23 Events Since Admission: JOHNATHAN GONZALEZ was admitted to MEDICAL SURGICAL service into room 427 on 06/25/23 at 04:55 for complaints of 1. NAUSEA VOMITING #2 DIAPHORESIS #3 BRIEF RUN OF. The patient's laboratory testing and diagnostic testing has been reviewed. Status: Condition Unchanged Condition: Fair General: Denies: Fever, Chills, Sweats, Weakness, Fatigue, Weight Gain, Weight Loss, Other ENT: Denies: Earache, Ear Discharge, Decreased Hearing, Tinnitus, Nose Congestion, Nose Drainage, Nasal Ulcers, Epitaxis, Sore Throat, Throat Swelling,Hoarseness, Loss Of Voice, Tongue Pain, Tongue Swelling, Lip Swelling, Dental Pain, Cervical, Other Respiratory: Denies: Cough, Shortness of Breath, Wheezing, Sputum Production, Hemoptysis, Dyspnea on Exertion, Pleuritic Pain, Other Cardiovascular: Denies: Chest Pain-Sharp, Chest Pain-Heavy, Orthopnea, Short of Breath, Dyspnea on Exertion, Paroxysmal Noc. Dyspnea, Edema, Palpitations, LightHeadedness, Syncope, Diaphoresis, Claudication, Edema, Other Gastrointestinal: Confirms: Nausea, Vomiting, Constipation. Denies: Abdominal Pain Genitourinary: Denies: Dysuria, Frequency, Incontinence, Hematuria, Retention, Other Musculoskeletal: Denies: Neck Pain, Shoulder Pain, Arm Pain, Back Pain, Hand Pain, Leg Pain, Foot Pain, Other Neurological: Denies: Weakness, Numbness, Incoordination, Change in Speech, Confusion, Seizures, Other Objective Findings Sepsis focused exam performed?: No Review of Systems Completed?: Yes General: Yes: Alert, Oriented, Cooperative/Pleasant, Mild distress HEENT: Yes: Atraumatic, PERRLA, EOMI, PERRL, Mucous membr. moist/pink Neck: Yes: Supple, +2 carotid pulse wo bruit. No: JVD, Thyromegaly Lungs: Yes: Clear to auscultation, Normal air movement, Unlabored. No: Exibits Shortness of [place], Pursed Lip Breathing, Use of Accessory Muscles, Retracting Cardiovascular: Yes: Regular rate, Normal S2, Normal S1, No murmurs, Window [place]per Rhythm (Sinus Rhythm). No: Gallops, Rubs, Ectopy Abdomen: Yes: Bowel Sounds X4, Soft, Tenderness Noted (Mild diffuse upper abdomen), Flatus. No: Hepatospenomegaly, Masses, Nausea/Vomiting, Emesis Present, Constipation, Diarrhea Genitourinary/Rectal: Yes: Genitalia (Normal For Gender), Voiding (Sufficiently). No: Genital Discharge, Bladder Distention Extremities: Yes: Normal pulses. No: Clubbing, Cyanosis, Edema, No tenderness/swelling, Mottling noted Skin: No: Rashes, Skin Breakdown, Significant lesions, Open Wound Present Neurological: Yes: Normal Gait, Speech Clear, Strength Normal X4 ext, Normal tone, Sensation intact, Cranial nerves 3-12 NL, Reflexes 2+, Cognitive Ability Intact Psych/Mental Status: Yes: Mental status NL, Mood Appropriate. No: Hallucinations Vitals and I&O: Vital Signs Temperature 98.6 F 06/25/23 20:02 Pulse Rate 69 06/25/23 20:02 Respiratory Rate 20 06/25/23 20:02 Blood Pressure 136/93 H 06/25/23 20:07 O2 Sat by Pulse Oximetry(%) 95 06/25/23 20:02 FiO2 - Manual Entry Intake & Output 06/24/23 06/25/23 06/25/23 23:59 11:59 23:59 Intake Total 1580 580 Output Total 200 Balance 1580 380 Weight 202 lb 3.2 oz Intake: IV Intake 1100 Rocephin 2 Gram Injection 100 2 gm In Sodium Chloride 0.9 % 100 ml 100 ml @ 100 mls/hr IVPB Q24H EL[facility] Rx# :[id number] Sodium Chloride 0.9 % 1000 1000 ml 1,000 ml @ 999 mls/hr IV .Q1H1M STA Rx#: [id number] Intake ml 480 580 Output: Output ml 200 Urine 200 Other: Output Urine Nonnumeric/ Comment Urine inc x1 Laboratory-Last 48 hrs: 06/25/23 03:40 06/25/23 03:40 Laboratory Results-last 24 hrs 06/25/23 03:40: Glucose 160 H, AST 118 H, ALT 117 H, Alkaline Phosphatase 123 H,Albumin 2.5 L, Albumin/Globulin Ratio 0.6 L 06/25/23 03:40: WBC 14.3 H, Neut % (Auto) 84.2 H, Lymph % (Auto) 10.4 L, [place] % (Auto) 4.4 L, Eos % (Auto) 0.6 L, Baso % (Auto) 0.1 L, Absolute Neuts (auto) 12.00 H 06/25/23 16:40: Urine Bilirubin 1 A Radiology-Impressions: See radiology reports in electronic medical record. Impressions - Problems (1) Constipation Problems: Constipation type: unspecified constipation type Qualified Code(s): K59.00 - Constipation, unspecified Status: Acute Priority: High Onset Date: ~06/25/23 Present on admission?: Yes Current Visit: Yes (2) Leukocytosis Problems: Leukocytosis type: bandemia Qualified Code(s): D72.825 - Bandemia Status: Acute Priority: High Current Visit: Yes (3) Nausea and vomiting Problems: Vomiting type: unspecified Qualified Code(s): R11.2 - Nausea with vomiting,unspecified Status: Acute Priority: High Onset Date: ~06/25/23 Present on admission?: Yes Current Visit: Yes Plan/Treatment Current Plan: Continue Current Course of Treatment Plan: Patient had a new onset of nausea vomiting not terribly long after he arrived [facility] last night. He was in the hospital for chest pain evaluation and he had no symptoms of this on the when I did a rather extensive evaluation and spent a fair amount of time with him. He is described that he has had no hematemesis but his vomit was very bitter and dark he has had his gallbladder out. I suspect that this is more reflective of bilious vomiting rather than old blood. He had a borderline in the near urinalysis for UTI so wewill just optimize his gastritis/antiacid therapy and see how his symptoms do inthe next 24 hours. If he is still having persistent symptoms, we may consider surgical evaluation for possible EGD. If his symptoms resolve, will once again try to get him back to the long term facility for rehab. New Orders: New Orders-Lab 06/26/23 04:00 Albumin [CHM] DAILY@0400 New Orders-Nursing Care 06/25/23 16:26 NPO after Midnight [RC] ONE 06/26/23 00:01 Nothing Per Oral [DIET] Medications 06/25/23 16:45 Pantoprazole Sodium [Protonix 40 mg Injection] 40 mg IVP PROTONIX-BID Visit Coding - VISIT CODING Date of Service: 06/25/23 Billing Provider:: IKE PEPPER Common Visit Codes: [id number] INP/OBS CARE(HIGH) Electronically Generated By:IKE PEPPER MD Generated Date/Time: 06/25/232140 Electronically Signed By: <Electronically signed by IKE PEPPER MD> 06/28/232032 Co Signed Electronically By: Co Signed Date/Time: CC: [facility] Work Phone: 1([phone]) 999-534812-22-2023 Progress note Author IKE PEPPER [facility] June 28, 2023 8:33pm Note Date/Time June 26, 2023 10:37pm [facility] [address] [place] [id number] HEALTH INFORMATION MANAGEMENT PROGRESS NOTE : [id number] Signed Patient: JOHNATHAN GONZALEZ Acct:[id number] MRUN: [id number] : 1975 Sex: M Loc: 4TH FLOOR ADM Date: 06/25/23 Room/Bed: 427-A DISC Date: 06/28/23 Subjective Assessment Date Of Service: 06/26/23 Events Since Admission: JOHNATHAN GONZALEZ was admitted to MEDICAL SURGICAL service into room 427 on 06/25/23 at 04:55 for complaints of 1. NAUSEA VOMITING #2 DIAPHORESIS #3 BRIEF RUN OF. The patient's laboratory testing and diagnostic testing has been reviewed. Status: Change In Condition Noted, New Medications Ordered, New Labs Ordered, Consult Ordered Condition: Fair General: Confirms: Weakness, Fatigue ENT: Denies: Earache, Ear Discharge, Decreased Hearing, Tinnitus, Nose Congestion, Nose Drainage, Nasal Ulcers, Epitaxis, Sore Throat, Throat Swelling,Hoarseness, Loss Of Voice, Tongue Pain, Tongue Swelling, Lip Swelling, Dental Pain, Cervical, Other Respiratory: Denies: Cough, Shortness of Breath, Wheezing, Sputum Production, Hemoptysis, Dyspnea on Exertion, Pleuritic Pain, Other Cardiovascular: Denies: Chest Pain-Sharp, Chest Pain-Heavy, Orthopnea, Short of Breath, Dyspnea on Exertion, Paroxysmal Noc. Dyspnea, Edema, Palpitations, LightHeadedness, Syncope, Diaphoresis, Claudication, Edema, Other Gastrointestinal: Confirms: Nausea, Abdominal Pain Genitourinary: Denies: Dysuria, Frequency, Incontinence, Hematuria, Retention, Other Musculoskeletal: Denies: Neck Pain, Shoulder Pain, Arm Pain, Back Pain, Hand Pain, Leg Pain, Foot Pain, Other Neurological: Denies: Weakness, Numbness, Incoordination, Change in Speech, Confusion, Seizures, Other Objective Findings Sepsis focused exam performed?: Yes Review of Systems Completed?: Yes General: Yes: Alert, Oriented, Cooperative/Pleasant, No acute distress HEENT: Yes: Atraumatic, PERRLA, EOMI, PERRL, Mucous membr. moist/pink Neck: Yes: Supple, +2 carotid pulse wo bruit. No: JVD, Thyromegaly Lungs: Yes: Clear to auscultation, Normal air movement, Unlabored. No: Exibits Shortness of [place], Pursed Lip Breathing, Use of Accessory Muscles, Retracting Cardiovascular: Yes: Regular rate, Normal S2, Normal S1, No murmurs, Window Draper Rhythm (Sinus Rhythm). No: Gallops, Rubs, Ectopy Abdomen: Yes: Bowel Sounds X4, Soft, No Tenderness, Flatus. No: Hepatospenomegaly, Masses, Nausea/Vomiting, Emesis Present, Constipation, Diarrhea Genitourinary/Rectal: Yes: Genitalia (Normal For Gender), Voiding (Sufficiently). No: Genital Discharge, Bladder Distention Extremities: Yes: Normal pulses. No: Clubbing, Cyanosis, Edema, No tenderness/swelling, Mottling noted Skin: No: Rashes, Skin Breakdown, Significant lesions, Open Wound Present Neurological: Yes: Speech Clear, Strength Normal X4 ext, Sensation intact, Cranial nerves 3-12 NL, Reflexes 2+, Cognitive Ability Intact. No: Normal Gait,Normal tone Psych/Mental Status: Yes: Mental status NL, Mood Appropriate. No: Hallucinations Vitals and I&O: Vital Signs Temperature 97.4 F L 06/26/23 20:30 Pulse Rate 71 06/26/23 20:30 Respiratory Rate 17 06/26/23 20:30 Blood Pressure 136/88 06/26/23 21:09 O2 Sat by Pulse Oximetry(%) 99 06/26/23 20:30 FiO2 - Manual Entry Intake & Output 06/25/23 06/26/23 06/26/23 23:59 11:59 23:59 Intake Total 1580 0 1340 Output Total 326 553 9807 Balance 1130 -300 165 Weight 199 lb 8 oz Intake: IV Intake 1000 1100 Rocephin 2 Gram Injection 100 2 gm In Sodium Chloride 0.9 % 100 ml 100 ml @ 100 mls/hr IVPB Q24H ELIER Rx# :[id number] Sodium Chloride 0.9 % 1000 1000 1000 ml 1,000 ml @ 80 mls /hr IV .[id number] PRN Rx#: [id number] Intake ml 580 0 240 Oral 0 Output: Output ml 189 813 5942 Urine 509 215 6879 Other: Oral Intake Size Oral Medium Small Output Urine Nonnumeric/ Comment Stool BM x 1, lg BM x 1 LG Urine inc x1 Laboratory-Last 48 hrs: 06/26/23 06:21 06/26/23 06:21 Laboratory Results-last 24 hrs 06/25/23 03:40: Glucose 160 H, AST 118 H, ALT 117 H, Alkaline Phosphatase 123 H,Albumin 2.5 L, Albumin/Globulin Ratio 0.6 L 06/25/23 03:40: WBC 14.3 H, Neut % (Auto) 84.2 H, Lymph % (Auto) 10.4 L, Broome % (Auto) 4.4 L, Eos % (Auto) 0.6 L, Baso % (Auto) 0.1 L, Absolute Neuts (auto) 12.00 H 06/25/23 16:40: Urine Bilirubin 1 A 06/26/23 06:21: RBC 3.95 L, Hgb 11.9 L, Hct 36.5 L, MCHC 32.6 L, Plt Count 133 L 06/26/23 06:21: Creatinine 1.29 H, Est GFR (MDRD) Non-Af 59 A, Glucose 105 H 12/20/23 06:21: Albumin 2.1 L Radiology-Impressions: See radiology reports in electronic medical record. Impressions - Problems (1) Acute gastritis with bleeding Problems: Gastritis type: other gastritis Qualified Code(s): K29.01 - Acute gastritiswith bleeding Status: Acute Priority: High Onset Date: ~06/25/23 Present on admission?: Yes Current Visit: Yes (2) Leukocytosis Problems: Leukocytosis type: bandemia Qualified Code(s): D72.825 - Bandemia Status: Acute Priority: High Onset Date: ~06/25/23 Current Visit: Yes (3) Constipation Problems: Constipation type: unspecified constipation type Qualified Code(s): K59.00 - Constipation, unspecified Status: Acute Priority: High Onset Date: ~06/25/23 Present on admission?: Yes Current Visit: Yes (4) Nausea and vomiting Problems: Vomiting type: unspecified Qualified Code(s): R11.2 - Nausea with vomiting,unspecified Status: Acute Priority: High Onset Date: ~06/25/23 Current Visit: Yes (5) UTI (urinary tract infection) Problems: Urinary tract infection type: acute cystitis Hematuria presence: without hematuria Qualified Code(s): N30.00 - Acute cystitis without hematuria Status: Acute Priority: High Onset Date: ~06/25/23 Present on admission?: Yes Current Visit: Yes (6) BPH (benign prostatic hyperplasia) Problems: Lower urinary tract symptom presence: symptoms present Lower urinary tract symptom detail: weak urinary stream Qualified Code(s): N40.1 - Benign prostatic hyperplasia with lower urinary tract symptoms; R39.12 - Poor urinary stream Status: Chronic Priority: Medium Present on admission?: Yes Current Visit: Yes (7) Hypertension Problems: Hypertension type: primary hypertension Qualified Code(s): I10 - Essential (primary) hypertension Status: Chronic Priority: Medium Present on admission?: Yes Current Visit: Yes (8) Depression Problems: Depression Type: major depressive disorder Major depression recurrence: recurrent Active/Remission status: in full remission Qualified Code(s): F33.42 - Major depressive disorder, recurrent, in full remission Status: Chronic Priority: Medium Present on admission?: Yes Current Visit: Yes Plan/Treatment Current Plan: Continue Current Course of Treatment Plan: Patient to seems to be feeling a bit better but his blood count dropped a couplepoints from yesterday. He was vomiting some rather dark material which suggestsblood. I consulted Dr. Caldera for an EGD which was performed which revealed gastritis but at the time there was no active bleeding or obvious significant ulcerations. If his H&H remained stable by tomorrow, he may be able to go back to [facility]. His urine culture is growing gram-positive cocci so we willswitch him to amoxicillin from Rocephin since he is having trouble maintaining an IV and Enterococcus is universally resistant to Rocephin. New Orders: New Orders-Nursing Care 06/26/23 22:32 No Added Salt [DIET] Medications 06/26/23 22:29 Amoxicillin Trihydrate [Amoxil 250 mg Capsule] 250 mg PO STAT STA 06/26/23 22:30 Magnesium Hydroxide [Milk of Magnesia] 30 ml PO DAILY PRN 06/27/23 06:00 Amoxicillin Trihydrate [Amoxil 250 mg Capsule] 250 mg PO TID Pantoprazole Sodium [Protonix 40 mg Tablet] 40 mg PO PROTONIX-ACBK Visit Coding - VISIT CODING Date of Service: 06/26/23 Billing Provider:: IKE PEPPER Common Visit Codes: [id number] INP/OBS CARE(HIGH) Electronically Generated By:IKE PEPPER MD Generated Date/Time: 06/26/232232 Electronically Signed By: <Electronically signed by IKE PEPPER MD> 06/28/232032 Co Signed Electronically By: Co Signed Date/Time: CC: [facility] Work Phone: 1(367) 220-494212-22-2023 Progress note Author IKE PEPPER [facility] June 28, 2023 8:33pm Note Date/Time June 28, 2023 1:26am [facility] [address] [place] [address] HEALTH INFORMATION MANAGEMENT PROGRESS NOTE : [phone] Signed Patient: JOHNATHAN GONZALEZ Acct:[id number] MRUN: [id number] : 1975 Sex: M Loc: 4TH FLOOR ADM Date: 06/25/23 Room/Bed: 427-A DISC Date: 06/28/23 Subjective Assessment Date Of Service: 06/27/23 Events Since Admission: JOHNATHAN GONZALEZ was admitted to MEDICAL SURGICAL service into room 427 on 06/25/23 at 04:55 for complaints of 1. NAUSEA VOMITING #2 DIAPHORESIS #3 BRIEF RUN OF. The patient's laboratory testing and diagnostic testing has been reviewed. Status: Pt Condition Improving Condition: Fair General: Confirms: Weakness, Fatigue. Denies: Fever, Chills, Sweats, Weight Gain, Weight Loss, Other ENT: Denies: Earache, Ear Discharge, Decreased Hearing, Tinnitus, Nose Congestion, Nose Drainage, Nasal Ulcers, Epitaxis, Sore Throat, Throat Swelling,Hoarseness, Loss Of Voice, Tongue Pain, Tongue Swelling, Lip Swelling, Dental Pain, Cervical, Other Respiratory: Denies: Cough, Shortness of Breath, Wheezing, Sputum Production, Hemoptysis, Dyspnea on Exertion, Pleuritic Pain, Other Cardiovascular: Denies: Chest Pain-Sharp, Chest Pain-Heavy, Orthopnea, Short of Breath, Dyspnea on Exertion, Paroxysmal Noc. Dyspnea, Edema, Palpitations, LightHeadedness, Syncope, Diaphoresis, Claudication, Edema, Other Gastrointestinal: Denies: Nausea, Vomiting, Abdominal Pain, Diarrhea, Constipation, Melena, Hematochezia, Other Genitourinary: Denies: Dysuria, Frequency, Incontinence, Hematuria, Retention, Other Musculoskeletal: Denies: Neck Pain, Shoulder Pain, Arm Pain, Back Pain, Hand Pain, Leg Pain, Foot Pain, Other Neurological: Confirms: Confusion. Denies: Weakness, Numbness, Incoordination, Change in Speech, Seizures, Other Objective Findings Sepsis focused exam performed?: Yes Review of Systems Completed?: Yes General: Yes: Alert, Oriented, Cooperative/Pleasant, No acute distress HEENT: Yes: PERRLA, PERRL, Mucous membr. moist/pink, EOMI. No: Atraumatic (Old significant skull deformities) Neck: Yes: Supple Lungs: Yes: Clear to auscultation, Normal air movement, Unlabored. No: Exibits Shortness of [place], Pursed Lip Breathing, Use of Accessory Muscles, Retracting Cardiovascular: Yes: Regular rate, Normal S2, Normal S1, No murmurs, Window Draper Rhythm (Sinus Rhythm). No: Gallops, Rubs, Ectopy Abdomen: Yes: Bowel Sounds X4, Soft, No Tenderness, Flatus. No: Hepatospenomegaly, Masses, Nausea/Vomiting, Emesis Present, Constipation, Diarrhea Genitourinary/Rectal: Yes: Genitalia (Normal For Gender), Voiding (Sufficiently). No: Genital Discharge, Bladder Distention Extremities: Yes: Normal pulses. No: Clubbing, Cyanosis, Edema, No tenderness/swelling, Mottling noted Skin: No: Rashes, Skin Breakdown, Significant lesions, Open Wound Present Neurological: Yes: Speech Clear, Strength Normal X4 ext, Normal tone, Sensation intact, Cranial nerves 3-12 NL, Reflexes 2+, Cognitive Ability Intact Psych/Mental Status: Yes: Mental status NL Vitals and I&O: Vital Signs Temperature 97.7 F 06/27/23 23:50 Pulse Rate 67 06/27/23 23:50 Respiratory Rate 20 06/27/23 23:50 Blood Pressure 140/94 H 06/27/23 23:50 O2 Sat by Pulse Oximetry(%) 95 06/27/23 23:50 FiO2 - Manual Entry Intake & Output 06/27/23 06/27/23 06/28/23 11:59 23:59 11:59 Intake Total 180 1490 Output Total 350 450 Balance -170 1040 Weight 195 lb 8 oz Intake: Intake ml 180 1490 Oral 60 1130 Output: Output ml 350 450 Stool 0 Urine 350 450 Other: Output Urine Nonnumeric/ Comment Urine 250 Laboratory-Last 48 hrs: 06/27/23 08:08 06/26/23 06:21 Laboratory Results-last 24 hrs 06/26/23 06:21: RBC 3.95 L, Hgb 11.9 L, Hct 36.5 L, MCHC 32.6 L, Plt Count 133 L 06/26/23 06:21: Creatinine 1.29 H, Est GFR (MDRD) Non-Af 59 A, Glucose 105 H 06/26/23 06:21: Albumin 2.1 L 06/27/23 08:08: Plt Count 143 L Radiology-Impressions: See radiology reports in electronic medical record. Impressions - Problems (1) Acute gastritis with bleeding Problems: Gastritis type: other gastritis Qualified Code(s): K29.01 - Acute gastritiswith bleeding Status: Acute Priority: High Onset Date: ~06/25/23 Current Visit: Yes (2) Leukocytosis Problems: Leukocytosis type: bandemia Qualified Code(s): D72.825 - Bandemia Status: Acute Priority: High Onset Date: ~06/25/23 Current Visit: Yes (3) Constipation Problems: Constipation type: unspecified constipation type Qualified Code(s): K59.00 - Constipation, unspecified Status: Acute Priority: High Onset Date: ~06/25/23 Current Visit: Yes (4) Nausea and vomiting Problems: Vomiting type: unspecified Qualified Code(s): R11.2 - Nausea with vomiting,unspecified Status: Acute Priority: High Onset Date: ~06/25/23 Current Visit: Yes (5) UTI (urinary tract infection) Problems: Urinary tract infection type: acute cystitis Hematuria presence: without hematuria Qualified Code(s): N30.00 - Acute cystitis without hematuria Status: Acute Priority: High Onset Date: ~06/25/23 Current Visit: Yes (6) BPH (benign prostatic hyperplasia) Problems: Lower urinary tract symptom presence: symptoms present Lower urinary tract symptom detail: weak urinary stream Qualified Code(s): N40.1 - Benign prostatic hyperplasia with lower urinary tract symptoms; R39.12 - Poor urinary stream Status: Chronic Priority: Medium Current Visit: Yes (7) Hypertension Problems: Hypertension type: primary hypertension Qualified Code(s): I10 - Essential (primary) hypertension Status: Chronic Priority: Medium Current Visit: Yes (8) Depression Problems: Depression Type: major depressive disorder Major depression recurrence: recurrent Active/Remission status: in full remission Qualified Code(s): F33.42 - Major depressive disorder, recurrent, in full remission Status: Chronic Priority: Medium Current Visit: Yes Plan/Treatment Current Plan: Continue Current Course of Treatment Plan: Patient is feeling better today. His vitals, room air sats, cardiac rhythm and CBC are fairly normal. A bit of a concern is that there is some gram-positive cocci in his blood culture. I am not sure just yet if it is a contaminant versus a true pathogen but we may have a better idea about that by tomorrow and possibly some specific ID's can be obtained. We are going to have to reauthorize his stay at [facility] for him to go back there so if we get authorization and it turns out that the blood cultures might be contaminant, he could potentially go back to [place] by tomorrow which would be June 28. New Orders: New Orders-Nursing Care 06/27/23 17:54 Schedule Discharge Follow Up [RC] ONE 06/27/23 17:55 Discharge Patient [RC] ONE Schedule Discharge Follow Up [RC] ONE 06/27/23 18:00 Discharge Patient [RC] ONE 06/28/23 06:30 Discontinue Window Draper [RC] ONE Medications 06/28/23 06:00 Pantoprazole Sodium [Protonix 40 mg Tablet] 40 mg PO PROTONIX-ACBK Visit Coding - VISIT CODING Date of Service: 06/27/23 Billing Provider:: IKE PEPPER Common Visit Codes: [id number] INP/OBS CARE(HIGH) Electronically Generated By:IKE PEPPER MD Generated Date/Time: 06/28/23122 Electronically Signed By: <Electronically signed by IKE PEPPER MD> 06/28/232032 Co Signed Electronically By: Co Signed Date/Time: CC: [facility] Work Phone: 1(483) 605-929912-22-2023 Discharge summary Author BELLA GREEN [facility] June 28, 2023 11:37am Note Date/Time June 28, 2023 11:36am [facility] [address] [place] [id number] HEALTH INFORMATION MANAGEMENT DISCHARGE SUMMARY : [id number] Signed Patient: JOHNATHAN GONZALEZ Acct:[id number] MRUN: [id number] : 1975 Sex: M Loc: 4TH FLOOR ADM Date: 06/25/23 Room/Bed: 427-A DISC Date: 06/28/23 - Hospital Course Events Since Admission: JOHNATHAN GONZALEZ was admitted to MEDICAL SURGICAL service into room 427 on 06/25/23 at 04:55 from Emergency Dept for complaints of 1. NAUSEA VOMITING #2 DIAPHORESIS #3 BRIEF RUN OF. Laboratory and diagnostic testing has been reviewed. The patient was seen, evaluated and found to be appropriate for discharge. Reason For Visit: 1. NAUSEA VOMITING #2 DIAPHORESIS #3 BRIEF RUN OF Hospital Course: 48-year-old man was brought to the emergency department due to intractable nausea and vomiting associated with abdominal pain and uncontrolled blood pressure in the 190s over 110s. He was observed to have very dark emesis hence consulting general surgery, who elected to proceed with an EGD. This revealed gastritis findings without any active bleeding or obvious significant ulceration. He did eventually stabilize and clinically improved. His diet was gradually increased. He was discharged back to long term facility after obtaining authorization with instruction to continue Protonix, advised on dietary considerations, and to follow-up with primary care for posthospital visit. Objective Findings Review of Systems Completed?: Yes General: Yes: Alert, Oriented, Cooperative/Pleasant, No acute distress HEENT: Yes: PERRLA, PERRL, Mucous membr. moist/pink, EOMI. No: Atraumatic (Old significant skull deformities) Neck: Yes: Supple Lungs: Yes: Clear to auscultation, Normal air movement, Unlabored. No: Exibits Shortness of [place], Pursed Lip Breathing, Use of Accessory Muscles, Retracting Cardiovascular: Yes: Regular rate, Normal S2, Normal S1, No murmurs, Window Draper Rhythm (Sinus Rhythm). No: Gallops, Rubs, Ectopy Abdomen: Yes: Bowel Sounds X4, Soft, No Tenderness, Flatus. No: Hepatospenomegaly, Masses, Nausea/Vomiting, Emesis Present, Constipation, Diarrhea Genitourinary/Rectal: Yes: Genitalia (Normal For Gender), Voiding (Sufficiently). No: Genital Discharge, Bladder Distention Extremities: Yes: Normal pulses. No: Clubbing, Cyanosis, Edema, No tenderness/swelling, Mottling noted Skin: No: Rashes, Skin Breakdown, Significant lesions, Open Wound Present Neurological: Yes: Speech Clear, Strength Normal X4 ext, Normal tone, Sensation intact, Cranial nerves 3-12 NL, Reflexes 2+, Cognitive Ability Intact Psych/Mental Status: Yes: Mental status NL Hospital Treatment: 06/28/23 04:51 06/26/23 06:21 Laboratory Results - last 24 hr 06/28/23 04:51: WBC 6.7, RBC 4.00 L, Hgb 12.1 L, Hct 36.8, MCV 92.0, MCH 30.3, MCHC 32.9 L, RDW 12.4, Plt Count 143 L, MPV 9.3, Neut % (Auto) 54.4, Lymph % (Auto) 34.4, Bro[place] % (Auto) 8.2, Eos % (Auto) 2.5, Baso % (Auto) 0.4, Abs Immat Gran (man) 0.01, Absolute Neuts (auto) 3.62, Absolute Lymphs (auto) 2.30, Absolute Monos (auto) 0.60, Absolute Eos (auto) 0.20, Absolute Basos (auto) 0.03, Immature Gran % 0.10 Intake & Output 06/25/23 06/26/23 06/27/23 06/28/23 23:59 23:59 23:59 23:59 Intake Total 3160 1520 1670 350 Output Total 450 1475 800 375 Balance 2710 45 870 -25 Weight 202 lb 3.2 oz 199 lb 8 oz 195 lb 8 oz 193 lb 4.8 oz See radiology reports in electronic medical record. - Discharge Information Discharge Diagnosis:: Acute gastritis. Upper GI bleed. blood loss anemia. Traumatic brain injury. transaminitis. leukocytosis Disposition: 03 RESIDENTIAL FACILITY Condition: Good Plan of Treatment: Continue Protonix and follow-up with primary care - Discharge Instructions Referrals: ROSITA PALMA PA-C [Primary Care Provider] - 2 Week -Call to Schedule Prescriptions & home med reconciliation (Convert): Pantoprazole Sodium 40 mg PO DAILY #30 Work Note: Discharge Instruction Sheet, Patient Portal Instructions: Gastritis, Adult, Ggxi-de-Synk, Nausea and Vomiting, Adult, Hteh-ug-Qkli, Gastrointestinal Bleeding, Kxox-na-Irzk Activity Level For Discharge:: As Tolerated Discharge Diet: No Added Salt Visit Coding - VISIT CODING Date of Service: 06/28/23 Billing Provider:: BELLA GREEN Common Visit Codes: 70597-CLG/OBS DISCH DAY >30min Electronically Generated By:BELLA GREEN MD Generated Date/Time: 06/28/23 113 Electronically Signed By: <Electronically signed by BELLA GREEN MD> 06/28/23 113 Co Signed Electronically By: Co Signed Date/Time: CC: ROSITA PALMA PA-C; JAMIR CALDERA DO [facility] Work Phone: 1(898) 923-394412-22-2023 Discharge summary Author [facility] June 28, 2023 11:37am Note Date/Time June 28, 2023 11:36am [facility] [address] [place] [address] HEALTH INFORMATION MANAGEMENT DISCHARGE SUMMARY : [id number] Signed Patient: JOHNATHAN GONZALEZ Acct:[id number] MRUN: [id number] : 1975 Sex: M Loc: 4TH FLOOR ADM Date: 06/25/23 Room/Bed: 427-A DISC Date: 06/28/23 - Hospital Course Events Since Admission: JOHNATHAN GONZALEZ was admitted to MEDICAL SURGICAL service into room 427 on 06/25/23 at 04:55 from Emergency Dept for complaints of 1. NAUSEA VOMITING #2 DIAPHORESIS #3 BRIEF RUN OF. Laboratory and diagnostic testing has been reviewed. The patient was seen, evaluated and found to be appropriate for discharge. Reason For Visit: 1. NAUSEA VOMITING #2 DIAPHORESIS #3 BRIEF RUN OF Hospital Course: 48-year-old man was brought to the emergency department due to intractable nausea and vomiting associated with abdominal pain and uncontrolled blood pressure in the 190s over 110s. He was observed to have very dark emesis hence consulting general surgery, who elected to proceed with an EGD. This revealed gastritis findings without any active bleeding or obvious significant ulceration. He did eventually stabilize and clinically improved. His diet was gradually increased. He was discharged back to long term facility after obtaining authorization with instruction to continue Protonix, advised on dietary considerations, and to follow-up with primary care for posthospital visit. Objective Findings Review of Systems Completed?: Yes General: Yes: Alert, Oriented, Cooperative/Pleasant, No acute distress HEENT: Yes: PERRLA, PERRL, Mucous membr. moist/pink, EOMI. No: Atraumatic (Old significant skull deformities) Neck: Yes: Supple Lungs: Yes: Clear to auscultation, Normal air movement, Unlabored. No: Exibits Shortness of [place], Pursed Lip Breathing, Use of Accessory Muscles, Retracting Cardiovascular: Yes: Regular rate, Normal S2, Normal S1, No murmurs, Window Draper Rhythm (Sinus Rhythm). No: Gallops, Rubs, Ectopy Abdomen: Yes: Bowel Sounds X4, Soft, No Tenderness, Flatus. No: Hepatospenomegaly, Masses, Nausea/Vomiting, Emesis Present, Constipation, Diarrhea Genitourinary/Rectal: Yes: Genitalia (Normal For Gender), Voiding (Sufficiently). No: Genital Discharge, Bladder Distention Extremities: Yes: Normal pulses. No: Clubbing, Cyanosis, Edema, No tenderness/swelling, Mottling noted Skin: No: Rashes, Skin Breakdown, Significant lesions, Open Wound Present Neurological: Yes: Speech Clear, Strength Normal X4 ext, Normal tone, Sensation intact, Cranial nerves 3-12 NL, Reflexes 2+, Cognitive Ability Intact Psych/Mental Status: Yes: Mental status NL Hospital Treatment: 06/28/23 04:51 06/26/23 06:21 Laboratory Results - last 24 hr 06/28/23 04:51: WBC 6.7, RBC 4.00 L, Hgb 12.1 L, Hct 36.8, MCV 92.0, MCH 30.3, MCHC 32.9 L, RDW 12.4, Plt Count 143 L, MPV 9.3, Neut % (Auto) 54.4, Lymph % (Auto) 34.4, [place] % (Auto) 8.2, Eos % (Auto) 2.5, Baso % (Auto) 0.4, Abs Immat Gran (man) 0.01, Absolute Neuts (auto) 3.62, Absolute Lymphs (auto) 2.30, Absolute Monos (auto) 0.60, Absolute Eos (auto) 0.20, Absolute Basos (auto) 0.03, Immature Gran % 0.10 Intake & Output 06/25/23 06/26/23 06/27/23 06/28/23 23:59 23:59 23:59 23:59 Intake Total 3160 1520 1670 350 Output Total 450 1475 800 375 Balance 2710 45 870 -25 Weight 202 lb 3.2 oz 199 lb 8 oz 195 lb 8 oz 193 lb 4.8 oz See radiology reports in electronic medical record. - Discharge Information Discharge Diagnosis:: Acute gastritis. Upper GI bleed. blood loss anemia. Traumatic brain injury. transaminitis. leukocytosis Disposition: 03 RESIDENTIAL FACILITY Condition: Good Plan of Treatment: Continue Protonix and follow-up with primary care - Discharge Instructions Referrals: ROSITA PALMA PA-C [Primary Care Provider] - 2 Week -Call to Schedule Prescriptions & home med reconciliation (Convert): Pantoprazole Sodium 40 mg PO DAILY #30 Work Note: Discharge Instruction Sheet, Patient Portal Instructions: Gastritis, Adult, Clut-ff-Bpqv, Nausea and Vomiting, Adult, Qogz-et-Uuvj, Gastrointestinal Bleeding, Eimg-xx-Dsbx Activity Level For Discharge:: As Tolerated Discharge Diet: No Added Salt Visit Coding - VISIT CODING Date of Service: 06/28/23 Billing Provider:: BELLA GREEN Common Visit Codes: 36554-YVV/OBS DISCH DAY >30min Electronically Generated By:BELLA GREEN MD Generated Date/Time: 06/28/23 1132 Electronically Signed By: <Electronically signed by BELLA GREEN MD> 06/28/23 1137 Co Signed Electronically By: Co Signed Date/Time: CC: ROSITA PALMA PA-C; JAMIR CALDERA [facility] Work Phone: 1(460) 366-524112-20-[address] [facility] [facility] [facility] [facility] [facility]23 Consult note Author BOB MCGUIRE [facility] June 24, 2023 11:40am Note Date/Time June 24, 2023 11:40am [facility] [address] [place] [id number] HEALTH INFORMATION MANAGEMENT CONSULTATION : [id number] Signed Patient: JOHNATHAN GONZALEZ Acct:[id number] MRUN: [id number] : 1975 Sex: M Loc: 4TH FLOOR ADM Date: 06/22/23 Room/Bed: 433-A DISC Date: CARDIOLOGY CONSULT THIS DOCUMENT HAS BEEN CREATED USING VOICE RECOGNITION SOFTWARE AND MAY CONTAIN GRAMMATICAL, SYNTAX, AND TYPOGRAPHICAL ERRORS. 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 Patient's been having on and off chest pain and predominantly happens at rest. He is not mobile because of his stroke with weakness. He never noticed chest pain with exertion. The pain lasted a long time and also she had some sweating. His blood pressure was significantly elevated. When he came to the emergency room his blood pressure was 146/94 and it went up to 249/105. Currently it is 148/98. Denies any cough sputum or hemoptysis. Denies any headache nausea vomiting. 6 Previously patient had a stress test in February which is reported as possible inferior wall ischemia but soft tissue attenuation artifact cannot be ruled out. Troponin since admission is negative. Cardiology consulted for further recommendations. Allergies/Adverse Reactions: No Known Allergies Allergy (Verified 04/26/19 04:44) Last Vital Signs Temp 98.5 F 06/24/23 09:46 Pulse 67 06/24/23 09:46 Resp 18 06/24/23 09:46 BP 148/98 H 06/24/23 09:46 Pulse Ox 93 L 06/24/23 09:46 FiO2 Laboratory Last Values WBC 6.8 K/uL (3.6-10.8) 06/24/23 05:51 RBC 4.30 M/uL (4.13-5.69) 06/24/23 05:51 Hgb 13.1 g/dL (12.4-17.3) 06/24/23 05:51 Hct 38.9 % (36.7-50.6) 06/24/23 05:51 MCV 90.5 fL (80.0-94.0) 06/24/23 05:51 MCH 30.5 pg (27.0-31.0) 06/24/23 05:51 MCHC 33.7 g/dL (33.0-37.0) 06/24/23 05:51 RDW 12.4 % (11.5-14.5) 06/24/23 05:51 Plt Count 155 K/uL (148-402) 06/24/23 05:51 MPV 9.1 fL (7.4-10.4) 06/24/23 05:51 Neut % (Auto) 52.7 % (43.0-65.0) 06/24/23 05:51 Lymph % (Auto) 36.0 % (17.0-45.5) 06/24/23 05:51 [place] % (Auto) 8.8 % (5.5-11.7) 06/24/23 05:51 Eos % (Auto) 1.8 % (0.9-2.9) 06/24/23 05:51 Baso % (Auto) 0.6 % (0.2-1.0) 06/24/23 05:51 Abs Immat Gran (man) 0.01 K/uL (0.00-0.10) 06/24/23 05:51 Absolute Neuts (auto) 3.59 K/uL (2.20-4.80) 06/24/23 05:51 Absolute Lymphs (auto) 2.50 K/uL (1.30-2.90) 06/24/23 05:51 Absolute Monos (auto) 0.60 K/uL (0.30-0.80) 06/24/23 05:51 Absolute Eos (auto) 0.10 K/uL (0.00-0.20) 06/24/23 05:51 Absolute Basos (auto) 0.04 K/uL (0.00-0.10) 06/24/23 05:51 Immature Gran % 0.10 % (0.00-1.00) 06/24/23 05:51 Diff Slide Review see below 06/21/23 23:10 Sodium 143 mmol/L (132-145) 06/24/23 05:51 Potassium 3.4 mmol/L (3.3-5.1) 06/24/23 05:51 Chloride 106 mmol/L (94-110) 06/24/23 05:51 Total Carbon Dioxide 28 mmol/L (21-34) 06/24/23 05:51 Anion Gap 12.4 mmol/L (8.0-16.0) 06/24/23 05:51 BUN 16.0 mg/dL (3.2-26.9) 06/24/23 05:51 Creatinine 1.11 mg/dL (0.50-1.17) 06/24/23 05:51 Est GFR (MDRD) Af Amer > 60 (>60) 06/24/23 05:51 Est GFR (MDRD) Non-Af > 60 (>60) 06/24/23 05:51 BUN/Creatinine Ratio 14 (6-20) 06/24/23 05:51 Glucose 107 mg/dL (65-100) H 06/24/23 05:51 Calcium 8.8 mg/dL (8.2-10.0) 06/24/23 05:51 Magnesium 2.1 mg/dL (1.3-2.3) 06/22/23 06:18 Total Bilirubin 0.41 mg/dL (0.00-0.99) 06/22/23 06:18 Direct Bilirubin 0.12 mg/dL (0.00-0.42) 06/22/23 06:18 AST 54 U/L (3-39) H 06/22/23 06:18 ALT 83 U/L (13-66) H 06/22/23 06:18 Alkaline Phosphatase 96 U/L (54-112) 06/22/23 06:18 Troponin I High Sens 4 ng/L (0-76) 06/22/23 08:25 Troponin I Hi Sens Del 50 % 06/22/23 08:25 Troponin I Hi Sens Abs Chng 2 ng/L 06/22/23 08:25 Total Protein 5.9 g/dL (6.1-8.2) L 06/22/23 06:18 Albumin 2.3 g/dL (3.4-5.0) L 06/22/23 06:18 Globulin 3.6 g/dL (1.5-4.5) 06/22/23 06:18 Albumin/Globulin Ratio 0.6 (1.1-2.5) L 06/22/23 06:18 Urine Color brown (Yellow) 06/22/23 12:00 Urine Appearance Clear (Clear) 06/22/23 12:00 Urine pH 6 06/22/23 12:00 Ur Specific [place] 1.020 (1.015-1.025) 06/22/23 12:00 Urine Protein 25 (Negative) A 06/22/23 12:00 Urine Ketones 5 (Negative) A 06/22/23 12:00 Urine Blood Negative (Negative) 06/22/23 12:00 Urine Nitrite Negative (Negative) 06/22/23 12:00 Urine Bilirubin 1 (Negative) A 06/22/23 12:00 Urine Ictotest Negative (Negative) 06/22/23 12:00 Urine Urobilinogen 4 mg/dL (Normal-1.0) A 06/22/23 12:00 Ur Leukocyte Esterase Trace (Negative) A 06/22/23 12:00 Urine RBC 0-2 /hpf (0 - 2) 06/22/23 12:00 Urine WBC 2-5 /hpf (0 - 6) 06/22/23 12:00 Ur Epithelial Cells 0-2 /lpf (0 - 6) 06/22/23 12:00 Urine Bacteria 2+ /hpf (0 - 1+) 06/22/23 12:00 Urine Mucus 4+ /lpf 06/22/23 12:00 Urine Glucose Normal (Negative) 06/22/23 12:00 Active Medications Generic Name Dose Route Start Last Admin Trade Name Conor PRN Reason Stop Dose Admin Acetaminophen 650 mg 06/22/23 02:08 Acetaminophen 325 Mg Tablet PO 07/23/23 02:09 Q4H PRN MILD(1-3) TO MOD(4-6) PAIN Albuterol 1 puff 06/22/23 02:08 Albuterol Sulfate Hfa Inhaler IH 07/23/23 02:09 Q4H PRN COUGH/DYSPNEA Amlodipine Besylate 5 mg 06/24/23 12:00 Amlodipine Besylate 5 Mg Tablet PO 07/25/23 12:01 DAILY [facility] Aspirin 81 mg 06/22/23 11:00 06/23/23 10:46 Aspirin 81 Mg Chew Tablet PO 07/23/23 11:01 81 mg DAILY@1100 [facility] Administration Atorvastatin Calcium 40 mg 06/24/23 22:00 Atorvastatin Calcium 40 Mg Tablet PO 07/25/23 22:01 QHS [facility] Baclofen 5 mg 06/22/23 11:00 06/23/23 19:56 Baclofen 10 Mg Tablet PO 07/23/23 11:01 5 mg BID@1100,1999 [facility] Administration Bisacodyl 10 mg 06/23/23 08:29 Bisacodyl 10 Mg Suppository RC 07/24/23 08:30 Q24H PRN Constipation Divalproex Sodium 500 mg 06/22/23 06:00 06/24/23 05:41 Divalproex Sodium 250 Mg Extended-Release Tablet PO 07/23/23 06:01 Not Given TID [facility] Donepezil HCl 10 mg 06/22/23 11:00 06/23/23 10:44 Donepezil Hcl 5 Mg Tablet PO 07/23/23 11:01 10 mg DAILY@1100 [facility] Administration Duloxetine HCl 60 mg 06/22/23 11:00 06/23/23 10:45 Duloxetine Hcl 30 Mg Capsule PO 07/23/23 11:01 60 mg DAILY@1100 [facility] Administration Enoxaparin Sodium 40 mg 06/22/23 06:00 06/24/23 05:42 Enoxaparin Sodium 40 Mg/0.4 Ml Injection SQ 07/23/23 06:01 Not Given Q24H [facility] Protocol Famotidine 40 mg 06/22/23 11:00 06/23/23 10:46 Famotidine 20 Mg Tablet PO 07/23/23 11:01 40 mg DAILY@1100 [facility] Administration Finasteride 5 mg 06/22/23 11:00 06/23/23 10:43 Finasteride 5 Mg Tablet PO 07/23/23 11:01 5 mg DAILY@1099 [facility] Administration Guaifenesin 200 mg 06/23/23 08:29 Guaifenesin 200 Mg/10 Ml Liquid PO 07/24/23 08:30 RTQ4 PRN Cough Hydrocortisone 0 gm 06/23/23 09:45 Hydrocortisone 1 % Cream TP 07/24/23 09:46 QID PRN Itching Ibuprofen 800 mg 06/22/23 04:16 06/23/23 20:03 Ibuprofen 400 Mg Tablet PO 07/23/23 04:17 800 mg QID PRN Administration dental pain Levetiracetam 500 mg 06/22/23 11:00 06/23/23 19:56 Levetiracetam 500 Mg Tablet PO 07/23/23 11:01 500 mg BID@ [facility] Administration Magnesium Hydroxide 30 ml 06/23/23 08:29 Magnesium Hydroxide 30 Ml Ud Liquid PO 07/24/23 08:30 DAILY PRN Constipation Medroxyprogesterone Acetate 10 mg 06/22/23 11:00 06/23/23 19:56 Medroxyprogesterone Acet 10 Mg Tablet PO 07/23/23 11:01 10 mg BID@ [facility] Administration Polyethylene Glycol 17 gm 06/23/23 08:29 Polyethylene Glycol 17 Gm Packet PO 07/24/23 08:30 DAILY PRN Constipation Potassium Chloride 10 meq 06/22/23 11:00 06/23/23 10:43 Potassium Chloride 10 Meq Tablet.Er PO 07/23/23 11:01 10 meq DAILY@1099 [facility] Administration Simethicone 160 mg 06/23/23 14:00 06/24/23 05:42 Simethicone 80 Mg Chew Tablet PO 07/24/23 14:01 Not Given TID [facility] Tamsulosin HCl 0.4 mg 06/22/23 11:00 06/23/23 10:43 Tamsulosin Hcl 0.4 Mg Capsule PO 07/23/23 11:01 0.4 mg DAILY@1100 [facility] Administration Patient History Acetaminophen [Aphen] 650 mg PO Q4H PRN 02/08/22 [History Confirmed 06/22/23] Bisacodyl [Onelax] 10 mg RC Q24H PRN 02/08/22 [History Confirmed 06/22/23] Famotidine [Pepcid AC] 40 mg PO DAILY 02/08/22 [History Confirmed 06/22/23] Levetiracetam [Keppra] 500 mg PO BID 02/08/22 [History Confirmed 06/22/23] Magnesium Hydroxide [Milk of Magnesia] 30 ml PO Q24H PRN 02/08/22 [History Confirmed 06/22/23] Melatonin 5 mg PO QHS 02/08/22 [History Confirmed 06/22/23] Menthol [Biofreeze] 1 applic TP BID 02/08/22 [History Confirmed 06/22/23] Rivastigmine Tartrate [Rivastigmine] 6 mg PO BID 02/08/22 [History Confirmed 06/22/23] Albuterol Sulfate [Albuterol Sulfate Hfa] 8.5 gm IH Q4H PRN 02/10/23 [History Confirmed 06/22/23] Divalproex Sodium [Divalproex Sodium ER] 500 mg PO TID 02/10/23 [History Confirmed 06/22/23] Duloxetine HCl [Cymbalta] 60 mg PO DAILY 02/10/23 [History Confirmed 06/22/23] Medroxyprogesterone Acetate [Provera] 10 mg PO BID 02/10/23 [History Confirmed 06/22/23] Polyethylene Glycol 3350 [Miralax Packet 17 gm] 1 packet PO DAILY PRN 02/10/23 [History Confirmed 06/22/23] Potassium Chloride [Kdur 20 Meq Tablet] 10 meq PO DAILY 02/10/23 [History Confirmed 06/22/23] Zofran 4 mg Odt 4 cap PO .PER.INSTRUCTIONS PRN 02/10/23 [History Confirmed 06/22/23] Aspirin [Adult Low Dose Aspirin EC] 81 mg PO DAILY 06/22/23 [History Confirmed 06/22/23] Baclofen 5 mg PO BID 06/22/23 [History Confirmed 06/22/23] Benzocaine/Menthol/Zinc Chlor [Orajel 3X Mouth Sores Gel] 1 applic PO QID PRN 06/22/23 [History Confirmed 06/22/23] Guaifenesin [Adult Tussin] 10 ml PO RTQ4 PRN 06/22/23 [History Confirmed 06/22/23] Hydrocortisone [Hydrocortisone 1% Ointment] 1 applic TP QID PRN 06/22/23 [History Confirmed 06/22/23] Ibuprofen [Ibu] 800 mg PO QID PRN 06/22/23 [History Confirmed 06/22/23] Magnesium Hydroxide [Milk of Magnesia] 30 ml PO DAILY PRN 06/22/23 [History Confirmed 06/22/23] Nitroglycerin [Nitrostat] See Rx Instructions .ROUTE .COMPLEX PRN 06/22/23 [History Confirmed 06/22/23] Simethicone [Gas-X Ultra Strength] 180 mg PO TID 06/22/23 [History Confirmed 06/22/23] RX history Finasteride [Proscar 5 mg Tablet] 5 mg PO DAILY tablet 02/16/22 [Rx Confirmed 06/22/23] Tamsulosin HCl [Flomax] 0.4 mg PO DAILY 30 Days #30 capsule 02/16/22 [Rx Confirmed 06/22/23] Past Medical History Hx Ear/Nose/Throat Disorders: No Hx Neurological Disorder: Yes PMH-Neurological: Confirms: CVA, Headaches PSH-Neurological: Confirms: Neurological Surgery Hx Psychosocial Problems: No PMH--Psychological & Treatments: Confirms: Anxiety, Depression PMH--Other-Psyc:: EXPLOSIVE DISORDER, BEHAVIORS Hx Cardiac Disorders: Yes PMH--Cardiovascular: Confirms: HTN Hx Respiratory Disorders: No Hx Endocrine Disorders: No Hx Musculoskeletal Disorders: Yes PSH--Other-MS:: CRANIOTOMY ON RIGHT, WEARS HELMET WHEN OUT OF BED Hx Reproductive Disorders: No Hx Genitourinary Disorders: No PMH--Other-:: back pain Hx Gastrointestinal Disorders: No PMH--Gastrointestinal: Confirms: GERD Hx Cancer: No Other PMH: Confirms: Chicken Pox PHM--Communicable Diseases: Confirms: Chicken Pox Past Social History Marital Status: Single Lives with: Nursing Facility Occupation: [employer] Highest Educational Level: High School Able to Read: Yes Able to Write: Yes Packs Per Day Reported: 2 to 3 cigarettes/day Number Of years as a Smoker: 4 (Patient smoked from the age of 6-12 approximately 2 to 3 cigarettes/day.) Alcohol Use: Never Drugs: None - [place]/Gender ID What is your current Gender Identity? Choose all that Apply: Male Define your Sexual Orientation?: Straight/Heterosexual - [place]-Suicide Severity Rating Scale 1) Wish to be :: No 2) Suicidal Thoughts:: No 6) Suicidal Behavior Question (A): LIFETIME: No 6) Suicidal Behavior Question (B): PAST 3 MONTHS: No Family Medical History - Family Medical History No Significant Family History Ethnicity: Pt declinded to provide Review of Systems Neurological: Confirms: Weakness Other: All other systems reviewed and negative as per HPI Cardiology Exam General: Yes: Alert, Oriented HEENT: Yes: Atraumatic Lungs: Yes: Clear to auscultation Cardiovascular: Yes: Regular Rate, Normal S2, Normal S1. No: Murmur, JVD Extremities/Skin/Pulses: No: Clubbing, Cyanosis, Bilateral Leg Edema Abdomen: Yes: Soft. No: Distended, Tenderness Neurological: Yes: Other (Residual hemiparesis on the left side from the previous stroke) ASSESSMENT/PLAN Reviewed Vitals, Medications, Labs and Notes. Impression: 1. Atypical chest pain 2. Abnormal stress test but it was technically difficult due to soft tissue attenuation 3. Hypertension with uncontrolled blood pressure 4. History of stroke with residual weakness 5. Ongoing tobacco use Plan: Patient chest pain is atypical I have personally reviewed the stress test which was technically difficult study and inferior wall ischemia cannot be ruled out. Currently patient is pain-free. His blood pressure still elevated. Continue with aspirin 81 mg daily. Will add amlodipine 5 mg daily that will help with his blood pressure and also work as antianginal. Also will start him on atorvastatin 40 mg daily. His LFTs needs to be monitored after 2 weeks. If shecontinues to have chest pain despite being adequate blood pressure control and antianginal, he will need coronary angiogram. Patient will need to be seen in office in 2 to 3 weeks at that time to decide need for any further evaluation. Strongly advised him to stop all tobacco products. This plan discussed with primary team. NEW ORDERS: Medications 06/24/23 12:00 Amlodipine Besylate [Norvasc 5 mg Tablet] 5 mg PO DAILY 06/24/23 22:00 Atorvastatin Calcium [Lipitor 40 mg Tablet] 40 mg PO QHS Electronically Generated By:BOB MCGUIRE MD Generated Date/Time: 06/24/23 1138 Electronically Signed By: <Electronically signed by BOB MCGUIRE MD> 06/24/23 1140 Co Signed Electronically By: Co Signed Date/Time: CC: JEANNINE BEEBE ; GAURAV SPEARS MD [facility] Work Phone: [phone]) 199-422312-17-2023 Progress note Author SHAYLA MARK [facility] June 23, 2023 8:28am Note Date/Time June 23, 2023 7:13am [facility] [address] [place] [address] HEALTH INFORMATION MANAGEMENT PROGRESS NOTE : [id number] Signed Patient: JOHNATHAN GONZALEZ Acct:[id number] MRUN: [id number] : 1975 Sex: M Loc: 4TH FLOOR ADM Date: 06/22/23 Room/Bed: 433-A DISC Date: Subjective Assessment Date Of Service: 06/23/23 Events Since Admission: JOHNATHAN GONZALEZ was admitted to OBSERVATION service into room 433 on 06/22/23 at01:38 for complaints of CHEST PAIN. The patient's laboratory testing and diagnostic testing has been reviewed. Status: Condition Unchanged Subjective Note: Patient seen, scheduled to undergo subsequent evaluation with a stress test in AM. Condition: Fair General: Denies: Fever, Chills, Sweats Respiratory: Denies: Cough, Shortness of Breath Cardiovascular: Denies: Chest Pain-Sharp Gastrointestinal: Denies: Nausea, Vomiting Objective Findings Vitals and I&O: Vital Signs Temperature 97.7 F 06/23/23 03:32 Pulse Rate 64 06/23/23 03:32 Respiratory Rate 16 06/23/23 03:32 Blood Pressure 152/93 H 06/23/23 03:32 O2 Sat by Pulse Oximetry(%) 92 L 06/23/23 03:32 FiO2 - Manual Entry Intake & Output 06/22/23 06/22/23 06/23/23 11:59 23:59 11:59 Intake Total 470 720 Output Total 100 450 325 Balance 370 270 -325 Weight 186 lb 6 oz 188 lb 12.8 oz Intake: Intake ml 470 720 Oral 350 Output: Output ml 100 450 325 Urine 100 450 325 Other physical findings: Patient is a 48-year-old gentleman with multiple comorbidities including CVA, seizure disorder, currently resident of [facility] care facility was brought in with chest pain. Patient has apparently had recurrent chest pain and was scheduled to have a stress test however this has not been able to be performed. Presented to the emergency department. Initial cardiac enzymes and EKG came back unremarkable admitted to a monitored bed with plans for patient to undergo stress test on 06/24/2023. 1, chest pain - Admitted to monitored bed, ruling out HI with serial cardiac enzymes and EKG. Plan is for patient to undergo stress test once HI is ruled out.. Consultation placed to cardiology 2. Seizure disorder did continue patient antiseizure medications 3. BPH with lower urinary tract obstruction - Symptoms controlled on tamsulosin and finasteride. Home dose continued 4. History of previous CVA ? With craniotomy in 2019 with residual left-sided weakness 5. Depression with anxiety ? With episodes of explosive behavior 6. DVT prophylaxis - SC Lovenox Laboratory-Last 48 hrs: 06/23/23 06:06 06/23/23 06:06 Laboratory Results-last 24 hrs 06/21/23 23:10: Glucose 114 H, AST 127 H, ALT 96 H, Albumin 2.2 L, Albumin/Globulin Ratio 0.6 L 06/21/23 23:10: WBC 14.5 H, MCHC 32.2 L, Neut % (Auto) 82.9 H, Lymph % (Auto) 10.7 L, [place] % (Auto) 5.3 L, Eos % (Auto) 0.8 L, Baso % (Auto) 0.1 L, Absolute Neuts (auto) 12.02 H 06/22/23 06:18: Sodium 146 H, Glucose 101 H 06/22/23 06:18: MCHC 32.7 L 06/22/23 06:18: AST 54 H, ALT 83 H, Total Protein 5.9 L, Albumin 2.3 L, Albumin/Globulin Ratio 0.6 L 06/22/23 12:00: Urine Protein 25 A, Urine Ketones 5 A, Urine Bilirubin 1 A, Urine Urobilinogen 4 A, Ur Leukocyte Esterase Trace A 06/23/23 06:06: Plt Count 137 L Radiology-Impressions: See radiology reports in electronic medical record. Impressions - Problems (1) Chest pain Problems: Chest pain type: unspecified Qualified Code(s): R07.9 - Chest pain, unspecified Status: Acute Priority: High Current Visit: Yes Plan/Treatment Plan: Patient is a 48-year-old gentleman with multiple comorbidities including CVA, seizure disorder, currently resident of extended care facility was brought in with chest pain. Patient has apparently had recurrent chest pain and was scheduled to have a stress test however this has not been able to be performed. Presented to the emergency department. Initial cardiac enzymes and EKG came back unremarkable admitted to a monitored bed with plans for patient to undergo stress test on 06/24/2023. 1. Chest pain - Admitted to monitored bed, ruling out HI with serial cardiac enzymes and EKG. Plan is for patient to undergo stress test once HI is ruled out.. Consultation placed to cardiology ? 06/23/2023 cardiac enzymes so far negative to date. Plan is for patient to undergo nuclear stress test in a.m. 2. Seizure disorder did continue patient antiseizure medications 3. BPH with lower urinary tract obstruction - Symptoms controlled on tamsulosin and finasteride. Home dose continued 4. History of previous CVA ? With craniotomy in 2019 with residual left-sided weakness 5. Depression with anxiety ? With episodes of explosive behavior 6. DVT prophylaxis - SC Lovenox Visit Coding - VISIT CODING Date of Service: 06/23/23 Billing Provider:: SHAYLA MARK Common Visit Codes: [id number] INP/OBS CARE(MOD) Electronically Generated By:SHAYLA MARK MD Generated Date/Time: 06/23/23 0713 Electronically Signed By: <Electronically signed by SHAYLA MARK MD> 06/23/23 0820 Co Signed Electronically By: Co Signed Date/Time: CC: [facility] Work Phone: 1(424) 804-599012-16-2023 Progress note Author SHAYLA MARK [facility] June 22, 2023 10:42am Note Date/Time June 22, 2023 9:21am [facility] [place] [address] HEALTH INFORMATION MANAGEMENT PROGRESS NOTE : [phone] Signed Patient: JOHNATHAN GONZALEZ Acct:[id number] MRUN: [id number] : 1975 Sex: M Loc: 4TH FLOOR ADM Date: 06/22/23 Room/Bed: 433-A DISC Date: Subjective Assessment Date Of Service: 06/22/23 Events Since Admission: JOHNATHAN GONZALEZ was admitted to OBSERVATION service into room 433 on 06/22/23 at01:38 for complaints of CHEST PAIN. The patient's laboratory testing and diagnostic testing has been reviewed. Status: Condition Unchanged Subjective Note: Patient is a 48-year-old gentleman with multiple comorbidities including CVA, seizure disorder, currently resident of extended care facility was brought in with chest pain. Patient has apparently had recurrent chest pain and was scheduled to have a stress test however this has not been able to be performed. Presented to the emergency department. Initial cardiac enzymes and EKG came back unremarkable admitted to a monitored bed with plans for patient to undergo stress test on 06/24/2023. Condition: Fair General: Denies: Fever, Chills Cardiovascular: Confirms: Chest Pain-Sharp Gastrointestinal: Denies: Nausea, Vomiting Objective Findings Sepsis focused exam performed?: No Review of Systems Completed?: Yes Vitals and I&O: Vital Signs Temperature 99.1 F 06/22/23 08:49 Pulse Rate 60 06/22/23 08:49 Respiratory Rate 16 06/22/23 08:49 Blood Pressure 146/94 H 06/22/23 08:49 O2 Sat by Pulse Oximetry(%) 95 06/22/23 08:49 FiO2 - Manual Entry Intake & Output 06/21/23 06/21/23 06/22/23 11:59 23:59 11:59 Intake Total 350 Output Total 100 Balance 250 Weight 185 lb 186 lb 6 oz Intake: Intake ml 350 Oral 350 Output: Output ml 100 Urine 100 Other physical findings: PHYSICAL EXAMINATION GENERAL; cooperative HEENT; atraumatic normocephalic EYES; nonicteric, normal conjunctiva NECK; supple, normal thyroid RESPIRATORY; diminished to auscultation CARDIOVASCULAR; regular S1-S2, no gallop no murmurs GASTROINTESTINAL; soft normal active bowel sounds GENITOURINARY; no renal angle tenderness EXTREMITIES; no edema, no clubbing, no cyanosis NEUROLOGY; awake, left-sided weakness SKIN; no rash PSYCHIATRY; flat affect Laboratory-Last 48 hrs: 06/22/23 06:18 06/22/23 06:18 Laboratory Results-last 24 hrs 06/21/23 23:10: Glucose 114 H, AST 127 H, ALT 96 H, Albumin 2.2 L, Albumin/Globulin Ratio 0.6 L 06/21/23 23:10: WBC 14.5 H, MCHC 32.2 L, Neut % (Auto) 82.9 H, Lymph % (Auto) 10.7 L, [place] % (Auto) 5.3 L, Eos % (Auto) 0.8 L, Baso % (Auto) 0.1 L, Absolute Neuts (auto) 12.02 H 06/22/23 06:18: Sodium 146 H, Glucose 101 H 06/22/23 06:18: MCHC 32.7 L 06/22/23 06:18: AST 54 H, ALT 83 H, Total Protein 5.9 L, Albumin 2.3 L, Albumin/Globulin Ratio 0.6 L Radiology-Impressions: See radiology reports in electronic medical record. Plan/Treatment Plan: Patient is a 48-year-old gentleman with multiple comorbidities including CVA, seizure disorder, currently resident of [facility] care facility was brought in with chest pain. Patient has apparently had recurrent chest pain and was scheduled to have a stress test however this has not been able to be performed. Presented to the emergency department. Initial cardiac enzymes and EKG came back unremarkable admitted to a monitored bed with plans for patient to undergo stress test on 06/24/2023. 1, chest pain - Admitted to monitored bed, ruling out HI with serial cardiac enzymes and EKG. Plan is for patient to undergo stress test once HI is ruled out.. Consultation placed to cardiology 2. Seizure disorder did continue patient antiseizure medications 3. BPH with lower urinary tract obstruction - Symptoms controlled on tamsulosin and finasteride. Home dose continued 4. History of previous CVA ? With craniotomy in 2019 with residual left-sided weakness 5. Depression with anxiety ? With episodes of explosive behavior 6. DVT prophylaxis - SC Lovenox New Orders: New Orders-Nursing Care 06/22/23 04:23 Discharge Plan Screen Needed [RC] ONE Visit Coding - VISIT CODING Date of Service: 06/22/23 Billing Provider:: SHAYLA MARK Visit Codes: NOT BILLABLE Electronically Generated By:SHAYLA MARK MD Generated Date/Time: 06/22/23 0921 Electronically Signed By: <Electronically signed by SHAYLA MARK MD> 06/22/23 1042 Co Signed Electronically By: Co Signed Date/Time: CC: [facility] Work Phone: [phone]) 972-249812-16-2023 History and physical note [facility] 22, 2023 7:40am Note Date/Time June 22, 2023 1:41am [facility] [address] [place] [id number] HEALTH INFORMATION MANAGEMENT HISTORY AND PHYSICAL : [phone] Signed Patient: JOHNATHAN GONZALEZ Acct:[id number] MRUN: [id number] : 1975 Sex: M Loc: 4TH FLOOR ADM Date: 06/22/23 Room/Bed: 433-A DISC Date: History of Present Illness Date Of Admission: 06/22/23 Chief Complaint: Chest pain History of Present Illness: Visit History JOHNATHAN GONZALEZ is a 48 year old M patient of GAURAV SPEARS. Patient was admitted from to room , bed on . Pt was evaluated for complaints of , then admitted to [facility] for HIGH BLOOD PRESSURE. Pepe admitted as a REG to [facility] for further evaluation and treatment. Pt was seen and evaluated on 06/22/23 0138, by this provider, KORTNEY YU CNP. History of present illness: Mr. Gonzalez is a 48-year-old male [facility] with[facility]s of [facility] pain. Patient has a history of a CVA in 2019 and is now residing at a nursing facility. He complained of a headache tonight and the nursing facility reported his blood pressure to be elevated. He also complainedof chest pain associated with nausea and diaphoresis. He describes the chest pain as mid substernal and feels like a dull ache. He rated the pain as an 8/10on the pain scale. [facility] the jail and aspirin 325 mg aswell as Zofran 4 mg in the squad. Patient denies fever, chills, diaphoresis, rash, sore throat, runny nose, cough, shortness of breath, abdominal pain, nausea/vomiting, diarrhea/constipation, blood in urine or stool, syncope, lower extremity swelling, palpitations. He has a past medical/surgical history that includes: HTN, CVA, headaches, neurological surgery, GERD, back pain, anxiety, depression, explosive disorder behaviors. Patient reports he did receive the COVID-19 vaccine but could not recall the brand however, he has not received the flu shot. He is currently lives at [facility] due to his stroke. He smokedin his childhood approximately 2 to 3 cigarettes a day from the age of 6-12. Currently does not smoke drink alcohol or use illicit drugs. Allergies/Adverse Reactions: No Known Allergies Allergy (Verified 04/26/19 04:44) Home Medications: Patient History Acetaminophen [Aphen] 650 mg PO Q4H PRN 02/08/22 [History Confirmed 06/22/23] Bisacodyl [Onelax] 10 mg RC Q24H PRN 02/08/22 [History Confirmed 06/22/23] Famotidine [Pepcid AC] 40 mg PO DAILY 02/08/22 [History Confirmed 06/22/23] Levetiracetam [Keppra] 500 mg PO BID 02/08/22 [History Confirmed 06/22/23] Magnesium Hydroxide [Milk of Magnesia] 30 ml PO Q24H PRN 02/08/22 [History Confirmed 06/22/23] Melatonin 5 mg PO QHS 02/08/22 [History Confirmed 06/22/23] Menthol [Biofreeze] 1 applic TP BID 02/08/22 [History Confirmed 06/22/23] Rivastigmine Tartrate [Rivastigmine] 6 mg PO BID 02/08/22 [History Confirmed 06/22/23] Albuterol Sulfate [Albuterol Sulfate Hfa] 8.5 gm IH Q4H PRN 02/10/23 [History Confirmed 06/22/23] Divalproex Sodium [Divalproex Sodium ER] 500 mg PO TID 02/10/23 [History Confirmed 06/22/23] Duloxetine HCl [Cymbalta] 60 mg PO DAILY 02/10/23 [History Confirmed 06/22/23] Medroxyprogesterone Acetate [Provera] 10 mg PO BID 02/10/23 [History Confirmed 06/22/23] Polyethylene Glycol 3350 [Miralax Packet 17 gm] 1 packet PO DAILY PRN 02/10/23 [History Confirmed 06/22/23] Potassium Chloride [Kdur 20 Meq Tablet] 10 meq PO DAILY 02/10/23 [History Confirmed 06/22/23] Zofran 4 mg Odt 4 cap PO .PER.INSTRUCTIONS PRN 02/10/23 [History Confirmed 06/22/23] Aspirin [Adult Low Dose Aspirin EC] 81 mg PO DAILY 06/22/23 [History Confirmed 06/22/23] Baclofen 5 mg PO BID 06/22/23 [History Confirmed 06/22/23] Benzocaine/Menthol/Zinc Chlor [Orajel 3X Mouth Sores Gel] 1 applic PO QID PRN 06/22/23 [History Confirmed 06/22/23] Guaifenesin [Adult Tussin] 10 ml PO RTQ4 PRN 06/22/23 [History Confirmed 06/22/23] Hydrocortisone [Hydrocortisone 1% Ointment] 1 applic TP QID PRN 06/22/23 [History Confirmed 06/22/23] Ibuprofen [Ibu] 800 mg PO QID PRN 06/22/23 [History Confirmed 06/22/23] Magnesium Hydroxide [Milk of Magnesia] 30 ml PO DAILY PRN 06/22/23 [History Confirmed 06/22/23] Nitroglycerin [Nitrostat] See Rx Instructions .ROUTE .COMPLEX PRN 06/22/23 [History Confirmed 06/22/23] Simethicone [Gas-X Ultra Strength] 180 mg PO TID 06/22/23 [History Confirmed 06/22/23] RX history Finasteride [Proscar 5 mg Tablet] 5 mg PO DAILY tablet 02/16/22 [Rx Confirmed 06/22/23] Tamsulosin HCl [Flomax] 0.4 mg PO DAILY 30 Days #30 capsule 02/16/22 [Rx Confirmed 06/22/23] Past Social History Marital Status: Single Lives with: Nursing Facility Occupation: [employer] Highest Educational Level: High School Able to Read: Yes Able to Write: Yes Smoking Status: Former Smoker Packs Per Day Reported: 2 to 3 cigarettes/day Number Of years as a Smoker: 4 (Patient smoked from the age of 6-12 approximately 2 to 3 cigarettes/day.) Alcohol Use: Never Drugs: None - [place]/Gender ID What is your current Gender Identity? Choose all that Apply: Male Define your Sexual Orientation?: Straight/Heterosexual - [place]-Suicide Severity Rating Scale 1) Wish to be :: No 2) Suicidal Thoughts:: No 6) Suicidal Behavior Question (A): LIFETIME: No 6) Suicidal Behavior Question (B): PAST 3 MONTHS: No Past Medical History Hx Ear/Nose/Throat Disorders: No Hx Neurological Disorder: Yes PMH-Neurological: Confirms: CVA, Headaches PSH-Neurological: Confirms: Neurological Surgery Hx Psychosocial Problems: No PMH--Psychological & Treatments: Confirms: Anxiety, Depression PMH--Other-Psyc:: EXPLOSIVE DISORDER, BEHAVIORS Hx Cardiac Disorders: Yes PMH--Cardiovascular: Confirms: HTN Hx Respiratory Disorders: No Hx Endocrine Disorders: No Hx Musculoskeletal Disorders: Yes PSH--Other-MS:: CRANIOTOMY ON RIGHT, WEARS HELMET WHEN OUT OF BED Hx Reproductive Disorders: No Hx Genitourinary Disorders: No PMH--Other-:: back pain Hx Gastrointestinal Disorders: No PMH--Gastrointestinal: Confirms: GERD Hx Cancer: No Family Medical History - Family Medical History No Significant Family History Ethnicity: Pt declinded to provide Review of Systems General: Confirms: Other (High blood pressure per jail staff). Denies: Fever, Chills, Sweats, Weakness, Fatigue, Weight Gain, Weight Loss Head/Eye: Confirms: Headache. Denies: Head Injury/Trama, Hear Loss, Pain, Itching, Redness, Matting, Blurry Vision, Double Vision, Scotoma (Spots), Amauriosis, Excessive Tearing, Other ENT: Denies: Earache, Ear Discharge, Decreased Hearing, Tinnitus, Nose Congestion, Nose Drainage, Nasal Ulcers, Epitaxis, Sore Throat, Throat Swelling,Hoarseness, Loss Of Voice, Tongue Pain, Tongue Swelling, Lip Swelling, Dental Pain, Cervical, Other Respiratory: Denies: Cough, Shortness of Breath, Wheezing, Sputum Production, Hemoptysis, Dyspnea on Exertion, Pleuritic Pain, Other Cardiovascular: Confirms: Chest Pain-Heavy (Mid substernal dull achy pain rates 8/10 on the pain scale.), Diaphoresis. Denies: Chest Pain-Sharp, Orthopnea, Short of Breath, Dyspnea on Exertion, Paroxysmal Noc. Dyspnea, Edema, Palpitations, Light Headedness, Syncope, Claudication, Edema, Other Gastrointestinal: Confirms: Nausea. Denies: Vomiting, Abdominal Pain, Diarrhea,Constipation, Melena, Hematochezia, Hematemesis, Rectal Pain, Other Genitourinary: Denies: Dysuria, Frequency, Incontinence, Hematuria, Retention, Urgency, Other Musculoskeletal: Denies: Neck Pain, Shoulder Pain, Arm Pain, Back Pain, Hand Pain, Leg Pain, Foot Pain, Other Skin: Denies: Rash, Lesions, Jaundice, Bruising, Other Neurological: Denies: Weakness, Numbness, Incoordination, Change in Speech, Confusion, Seizures, Other Physical Exam Review of Systems Completed?: Yes Vital Signs: Vital Signs (72 hours) 06/21/23 22:19 Temperature 97.2 F L Pulse Rate [ 67 Window Draper ] Respiratory 16 Rate Blood Pressure 118/79 [Right Arm] O2 Sat by Pulse 96 Oximetry(%) General: Yes: Alert, Oriented (X3), Cooperative/Pleasant, No acute distress HEENT: Yes: Atraumatic, PERRLA, EOMI, Mucous membr. moist/pink Lungs: Yes: Clear to auscultation, Normal air movement, Unlabored. No: Exibits Shortness of [place], Shortness Of Breath Scale Cardiovascular: Yes: Regular rate, Normal S2, Normal S1. No: Gallops, Rubs Abdomen: Yes: Bowel Sounds X4, Soft, No Tenderness. No: Large/Obese, Distended,Rigid, Nausea/Vomiting, Emesis Present, Constipation, Diarrhea Extremities: Yes: No tenderness/swelling, Normal pulses, Other. No: Clubbing, Cyanosis, Edema, Bilateral Leg Edema, Mottling noted Skin: No: Rashes, Skin Breakdown, Significant lesions, Open Wound Present, Skin Tear Neurological: Yes: Speech Clear, Cranial nerves 3-12 NL, Cognitive Ability Intact, Other (Left side flaccid from stroke. Unable to move or lift left arm/hand and leg/foot.) Psych/Mental Status: Yes: Mental status NL, Mood Appropriate. No: Depressed/Withdrawn, Hallucinations Genitourinary/Rectal: Yes: Deferred-Not Relevant Breast Exam: Yes: Deferred-Not Relevant Impressions - Problems (1) Chest pain Problems: Chest pain type: unspecified Qualified Code(s): R07.9 - Chest pain, unspecified Status: Acute Priority: High Present on admission?: Yes Current Visit: Yes (2) Transaminitis Status: Acute Priority: Medium Present on admission?: Yes Current Visit: No (3) Leukocytosis Problems: Leukocytosis type: unspecified Qualified Code(s): D72.829 - Elevated white blood cell count, unspecified Status: Acute Priority: High Present on admission?: Yes Current Visit: No (4) History of stroke Status: Acute Priority: High Present on admission?: Yes Current Visit: No Plan/Treatment Current Plan: See New Orders Plan: Impression/plan: 1. Chest pain: Patient has been complaining off-and-on for approximately a week. She was supposed to have outpatient stress test but that did not come to fruition. Troponins drawn in the ER were as follows: 5 and 8. I will continue to titrate and monitor troponins. EKG was unimpressive for STEMI. We are monitoring patient on telemetry 28/01 and I have consulted cardiology. 2. Transaminitis: AST 127, ALT 96. Total bilirubin 0.35, alkaline phosphatase 98. We will reevaluate liver function studies in the morning. 3. Leukocytosis: Patient is afebrile. WBCs 14.5. Chest x-ray finds no definite acute cardiopulmonary process. Order for albuterol evaluation I have ordered a UA C&S and blood cultures. We will continue to monitor vital signs, CBC with differential, electrolytes and kidney function throughout his hospital stay. 4. History of stroke: Patient has history of stroke and 2019. After that he needed to reside at jail. 5. GI prophylaxis: Once medications are confirmed we will resume Pepcid 40 mg p.o. daily. 6. DVT prophylaxis: Patient will wear SCDs/KOFI hose and Lovenox 40 mg subcu daily. COOPER Risk - COOPER Risk Age =>65: (0) No 3 or more CAD Risk Factors: (1) Yes Known CAD: (0) No Aspirin use within the Past 7 Days: (1) Yes Angina =<24 hours: (1) Yes Elevated Cardiac Markers: (0) No ST Deviation Greater than 0.5mm: (0) No COOPER Score: 3 COOPER Interpretation: Moderate COOPER Risk Score (2-4) Visit Coding - VISIT CODING Date of Service: 06/22/23 Billing Provider:: KORTNEY YU Common Visit Codes: [id number] INP/OBS CARE (MOD) Electronically Generated By:KORTNEY YU PHYSICAL THERAPY DIRECTOR Generated Date/Time: 06/22/23 0138 Electronically Signed By: <Electronically signed by KORTNEY YU [facility]> 06/22/23 0500 <Electronically signed by SHAYLA MARK MD> 06/22/23 0740 Co Signed Electronically By: SHAYLA MARK MD Co Signed Date/Time: 06/22/23 0740 CC: JEANNINE BEEBE ; GAURAV SPEARS MD [facility] Work Phone: [phone] 561-632912-16-2023 Discharge summary Author CARLYN CAMARGO [facility] June 22, 2023 1:57am Note Date/Time June 21, 2023 10:39pm [facility] [address] [place] [id number] HEALTH INFORMATION MANAGEMENT EMERGENCY DEPARTMENT : [phone] Signed Patient: JOHNATHAN GONZALEZ Acct:[id number] MRUN: [id number] : 1975 Sex: M Loc: ED AD M Date: 06/21/23 Room/Bed: DISC Date: History of Present Illness - General Chief Complaint: Chest Pain Stated Complaint: HIGH BLOOD PRESSURE Symptom onset: 2129 TODAY HPI: PER EMS PATIENT HAD C/O HEADACHE , REPORTED TOHAVE KYLEE B/P AT [facility] AND THEN NAUSEA AND THEN C/O CP, RECIEVED 1 NITRO AT [place] AND [facility] OF [place] THEN 1 NITRO PLUS 4 OF ZOFRAN IN [place], HX CVA IN 2019 Time Seen by Provider: 06/21/23 22:27 Source: [facility], EMS [facility] History of Present Illness MD Complaint: chest pain Onset/Timin -: hour(s) Improves With: nitroglycerin Worsens With: nothing Context: denies: recent illness, recent surgery, recent immobilization, recent travel, trauma/injury, new medications, other Anginal Symptoms: nausea. denies: vomiting, diaphoresis, dyspnea, sense of impending doom, other Other Symptoms: denies: cough, fever, syncope, rash, acid taste in mouth, leg swelling, palpitations, burping, other Treatments Prior to Arrival: none - Related Data Home Medications Medication Instructions Recorded Confirmed Acetaminophen [Aphen] 650 mg PO Q4H PRN 02/08/22 02/10/23 Bisacodyl [Onelax] 10 mg RC Q24H PRN 02/08/22 02/10/23 Duloxetine HCl [Drizalma Sprinkle] 60 mg PO DAILY 02/08/22 02/08/22 Famotidine [Pepcid AC] 40 mg PO DAILY 02/08/22 02/08/22 Levetiracetam [Keppra] 500 mg PO BID 02/08/22 02/10/23 Magnesium Hydroxide [Milk of 30 ml PO Q24H PRN 02/08/22 02/08/22 Magnesia] Melatonin 5 mg PO QHS 02/08/22 02/10/23 Menthol [Biofreeze] 1 applic TP BID 02/08/22 02/08/22 Rivastigmine Tartrate 6 mg PO BID 02/08/22 02/08/22 [Rivastigmine] Finasteride [Proscar 5 mg Tablet] 5 mg PO DAILY tablet 02/16/22 02/10/23 Tamsulosin HCl [Flomax] 0.4 mg PO DAILY 30 Days #30 capsule 02/16/22 02/10/23 Albuterol Sulfate [Albuterol 8.5 gm IH Q4H PRN 02/10/23 02/10/23 Sulfate Hfa] Divalproex Sodium [Depakote 250 mg PO BID 02/10/23 02/10/23 Sprinkle 125 mg Capsule] Divalproex Sodium [Divalproex 500 mg PO QHS 02/10/23 02/10/23 Sodium ER] Duloxetine HCl [Cymbalta] 60 mg PO DAILY 02/10/23 02/10/23 Famotidine [Pepcid 20 mg Tablet] 40 mg PO DAILY 02/10/23 02/10/23 Hydrocodone-Acetamin 5-325 mg 1 tab PO Q4H PRN 02/10/23 02/10/23 Medroxyprogesterone Acetate 10 mg PO BID 02/10/23 02/10/23 [Provera] Polyethylene Glycol 3350 [Miralax 1 packet PO DAILY PRN 02/10/23 02/10/23 Packet 17 gm] Potassium Chloride [Kdur 20 Meq 10 meq PO DAILY 02/10/23 02/10/23 Tablet] Zofran 4 mg Odt 4 cap PO .PER.INSTRUCTIONS PRN 02/10/23 02/10/23 Allergies Allergy/AdvReac Type Severity Reaction Status Date / Time No Known Allergies Allergy Verified 04/26/19 04:44 Review of System - Constitutional Constitutional: Present: Well developed, Well nourished, Non-toxic - Nose,Throat,Mouth Nose (ROS): Absent: pain Throat: Absent: pain, swelling, discharge Mouth: Absent: pain, swelling - Respiratory Respiratory: Absent: cough, short of breath, wheezing - CV Cardiology: Present: chest pain. Absent: edema - GI Gastrointestinal/Abdominal: Present: nausea. Absent: abdominal pain, diarrhea, vomiting - Genitourinary Symptoms: Absent: dysuria - Neuro Neurological: Absent: headache, weakness - Muskuloskeletal Musculoskeletal: Absent: back pain, joint pain, joint swelling - Integumentary Skin: Absent: lesions, rash - Allergic/Immunologic Immunological/Allergic: Present: no symptoms reported - Hematologic Hematologic/Lymphatic: Absent: easy bleeding, easy bruising, swollen glands - Endocrine Endocrine: Present: no symptoms reported - Psychiatric Psychiatric: Present: Normal Affect, Normal Mood. Absent: Depressed - All Others/Exceptions All Other Systems: Reviewed and Negative Except Where Noted in Documentation ED PMH/Social HX/Family HX - Respiratory Hx Respiratory Disorders: No - Cardiovascular Hx Cardiac Disorders: Yes PMH--Cardiovascular: HTN - Neurological Hx Neurological Disorder: Yes PMH--Neurological: CVA, Headaches PSH-Neurological: Neurological Surgery - Endocrine Hx Endocrine Disorders: No - Gastrointestinal Hx Gastrointestinal Disorders: No PMH--Gastrointestinal: GERD - Genitourinary Hx Genitourinary Disorders: No - Musculoskeletal Hx Musculoskeletal Disorders: Yes Other MS PMH: back pain - Reproductive Hx Reproductive Disorders: No - Psychological Hx Psychosocial Problems: No PMH--Psychological & Treatments: Anxiety, Depression Other Psychological PMH: EXPLOSIVE DISORDER, BEHAVIORS - HEENT Hx Ear, Nose Throat Disorders: No - Cancer Hx Cancer: No - Social History Lives with: Nursing Facility Highest Educational Level: High School Able to Read: Yes Able to Write: Yes Smoking Status: Never Smoked Hx Chewing Tobacco Use: No Alcohol Use: Never Any recreational drug use reported?: No Feels Threatened In Home Environment: No Feels Threatened In a Relationship: No - Family PMH No Significant Family History Ethnicity: Pt declinded to provide - [place]/Gender ID What is your current Gender Identity? Choose all that Apply: Male Define your Sexual Orientation?: Straight/Heterosexual - [place]-Suicide Severity Rating Scale 1) Wish to be :: No 2) Suicidal Thoughts:: No 6) Suicidal Behavior Question (A): LIFETIME: No 6) Suicidal Behavior Question (B): PAST 3 MONTHS: No General Exam - General Limitations: Complains of: no limitations Constitutional: Present: no symptoms reported - Head Head exam: Present: atraumatic - Eye Eye exam: Present: normal apperance - ENT ENT exam: Present: normal orophraynx, mucous membranes moist - Neck Neck exam: Present: full ROM, Supple - Respiratory Respiratory exam: Present: lungs clear and equal bilaterally. Absent: respiratory distress - Cardiovascular Cardiovascular Exam: Present: regular rate, normal rhythm - GI/Abdominal GI/Abdominal exam: Present: soft, non tender - Extremities Exam Extremities exam: Present: normal inspection - Back Exam Back exam: Present: normal inspection - Neurological Exam Neurological exam: Present: alert, oriented X3, other (Left hemiparesis from prior CVA, unchanged) - Skin Skin Color: Present: Normal Skin exam: Present: warm, dry, intact - Vital Signs Vital Signs 06/21/23 22:19 Temperature 97.2 F L Pulse Rate [ 67 Window Draper ] Respiratory 16 Rate Blood Pressure 118/79 [Right Arm] O2 Sat by Pulse 96 Oximetry(%) Chest Pain MDM - Lab Data Result diagrams: 06/21/23 23:10 06/21/23 23:10 Lab Results 06/21/23 06/21/23 06/21/23 Range/Units 23:10 23:10 23:10 WBC 14.5 H (3.6-10.8) K/uL RBC 4.48 (4.13-5.69) M/uL Hgb 13.4 (12.4-17.3) g/dL Hct 41.6 (36.7-50.6) % MCV 92.9 (80.0-94.0) fL MCH 29.9 (27.0-31.0) pg MCHC 32.2 L (33.0-37.0) g/dL RDW 12.3 (11.5-14.5) % Plt Count 150 (148-402) K/uL MPV 9.2 (7.4-10.4) fL Neut % (Auto) 82.9 H (43.0-65.0) % Lymph % (Auto) 10.7 L (17.0-45.5) % [place] % (Auto) 5.3 L (5.5-11.7) % Eos % (Auto) 0.8 L (0.9-2.9) % Baso % (Auto) 0.1 L (0.2-1.0) % Abs Immat Gran (man) 0.03 (0.00-0.10) K/uL Absolute Neuts (auto) 12.02 H (2.20-4.80) K/uL Absolute Lymphs (auto) 1.60 (1.30-2.90) K/uL Absolute Monos (auto) 0.80 (0.30-0.80) K/uL Absolute Eos (auto) 0.10 (0.00-0.20) K/uL Absolute Basos (auto) 0.01 (0.00-0.10) K/uL Immature Gran % 0.20 (0.00-1.00) % Diff Slide Review see below Sodium 142 (132-145) mmol/L Potassium 3.7 (3.3-5.1) mmol/L Chloride 109 (94-110) mmol/L Total Carbon Dioxide 24 (21-34) mmol/L Anion Gap 12.7 (8.0-16.0) mmol/L BUN 12.0 (3.2-26.9) mg/dL Creatinine 0.96 (0.50-1.17) mg/dL Est GFR (MDRD) Af Amer > 60 (>60) Est GFR (MDRD) Non-Af > 60 (>60) BUN/Creatinine Ratio 13 (6-20) Glucose 114 H (65-100) mg/dL Calcium 8.4 (8.2-10.0) mg/dL Total Bilirubin 0.35 (0.00-0.99) mg/dL AST 127 H (3-39) U/L ALT 96 H (13-66) U/L Alkaline Phosphatase 98 (54-112) U/L Troponin I High Sens 5 (0-76) ng/L Troponin I Hi Sens Del % Troponin I Hi Sens Abs Chng ng/L Total Protein 6.1 (6.1-8.2) g/dL Albumin 2.2 L (3.4-5.0) g/dL Globulin 3.9 (1.5-4.5) g/dL Albumin/Globulin Ratio 0.6 L (1.1-2.5) 06/22/23 Range/Units 00:36 WBC (3.6-10.8) K/uL RBC (4.13-5.69) M/uL Hgb (12.4-17.3) g/dL Hct (36.7-50.6) % MCV (80.0-94.0) fL MCH (27.0-31.0) pg MCHC (33.0-37.0) g/dL RDW (11.5-14.5) % Plt Count (148-402) K/uL MPV (7.4-10.4) fL Neut % (Auto) (43.0-65.0) % Lymph % (Auto) (17.0-45.5) % [place] % (Auto) (5.5-11.7) % Eos % (Auto) (0.9-2.9) % Baso % (Auto) (0.2-1.0) % Abs Immat Gran (man) (0.00-0.10) K/uL Absolute Neuts (auto) (2.20-4.80) K/uL Absolute Lymphs (auto) (1.30-2.90) K/uL Absolute Monos (auto) (0.30-0.80) K/uL Absolute Eos (auto) (0.00-0.20) K/uL Absolute Basos (auto) (0.00-0.10) K/uL Immature Gran % (0.00-1.00) % Diff Slide Review Sodium (132-145) mmol/L Potassium (3.3-5.1) mmol/L Chloride (94-110) mmol/L Total Carbon Dioxide (21-34) mmol/L Anion Gap (8.0-16.0) mmol/L BUN (3.2-26.9) mg/dL Creatinine (0.50-1.17) mg/dL Est GFR (MDRD) Af Amer (>60) Est GFR (MDRD) Non-Af (>60) BUN/Creatinine Ratio (6-20) Glucose (65-100) mg/dL Calcium (8.2-10.0) mg/dL Total Bilirubin (0.00-0.99) mg/dL AST (3-39) U/L ALT (13-66) U/L Alkaline Phosphatase (54-112) U/L Troponin I High Sens 8 (0-76) ng/L Troponin I Hi Sens Del 38 % Troponin I Hi Sens Abs Chng 3 ng/L Total Protein (6.1-8.2) g/dL Albumin (3.4-5.0) g/dL Globulin (1.5-4.5) g/dL Albumin/Globulin Ratio (1.1-2.5) Orders: Labs 06/21/23 22:28 EKG [CAR] Stat 06/21/23 22:29 12-Lead per nursing [RC] STAT 06/21/23 22:33 CHEST AP [DIAG] Stat 06/21/23 23:10 CBC w/Auto Differential [HEM] Stat Comprehensive Metabolic Panel [CHM] Stat High Sensitivity Troponin I* [CHM] Stat Slide Scan [HEM] Stat 06/22/23 Physician Consult [CONS] Routine 06/22/23 00:36 High Sensitivity Troponin I* [CHM] Routine 06/22/23 01:33 Admission Order Routine EKG as Needed [RC] PRN Notify Physician of [RC] PRN Resuscitation Status Order Routine 06/22/23 01:41 Bedrest [RC] QS SCD [RC] QS Teds [RC] QS Vital Signs [RC] EVENQ4 High Sensitivity Troponin I* [CHM] Stat Telemetry [RC] QS 06/22/23 01:42 cardiac diet [DIET] 06/22/23 01:43 Physician Consult Notification [RC] ONE 06/22/23 03:41 High Sensitivity Troponin I* [CHM] Routine 06/22/23 04:00 Basic Metabolic Panel [CHM] DAILY@0400 CBC w/Auto Differential [HEM] DAILY@0400 Magnesium [CHM] DAILY@39906/22/23 05:41 High Sensitivity Troponin I* [CHM] Routine 06/23/23 04:00 Basic Metabolic Panel [CHM] DAILY@0400 CBC w/Auto Differential [HEM] DAILY@0 06/24/23 04:00 Basic Metabolic Panel [CHM] DAILY@0400 CBC w/Auto Differential [HEM] DAILY@39906/25/23 04:00 Basic Metabolic Panel [CHM] DAILY@0400 CBC w/Auto Differential [HEM] DAILY@0400 - Radiology Data IMPRESSIONS Electrocardiogram 06/21/23 22:28 [facility] ED Test Date: 2023-06-21 Test Time: 22:18:20 Pat Name: JOHNATHAN GONZALEZ Department: ED Room: Gender: Male Workforce Consultant: MACIE : 1975 Requested By: CARLYN CAMARGO Order Number: [id number] Reading MD: Measurements Intervals [place] Rate: 70 P: 34 NC: 146 QRS: -13 QRSD: 90 T: 45 QT: 474 QTc: 512 Interpretive Statements Sinus rhythm Inferior infarct, old Prolonged QT interval Chest X-Ray 06/21/23 22:33 IMPRESSION: No definite acute cardiopulmonary process on portable exam. RECOMMENDATION: Consider additional imaging evaluation if there is further clinical concern or persistence of symptoms. - Medical Decision Making MDM ED Course: 48-year-old male with chest pain. Heart score is 3. Patient was was to get a stress test as an outpatient several months ago but follow up fell through. Patient's troponin initially was 5 and second 1 is 8, although still negative there was an increase. We will admit her to the hospital for further monitoring and treatment. Patient was given aspirin prehospital Prior external records reviewed: Outpatient records The patient has received a medical screening examination: within reasonable clinical confidence has been stabilized in the ED. Reviewed pertinent findings from resulted labs: CBC, CMP, troponin normal Imaging: Interpretation by radiology and independently interpreted by me. Chest x-ray negative EKG reviewed and discussed with patient. Full EKG read found on [employer] Presenting clinical condition necessitates admission or observation consideration: Yes Independent Hx provided by: Patient, EMS Med Rx considered but ultimately not given: Lasix Dx tests considered but ultimately not ordered: D-dimer Social determinant that may affects healthcare: USP patient Pt?s case/impression summarized and discussed with: Patient, hospitalist ETHOLOGIST Likely Dx given clinical picture: Chest pain Although not an exhaustive list of Differential Diagnosis (though considered), patient?s HPI, PE, and other findings are not suggestive of: Acute coronary syndrome, chest wall pain, dissection, Patient at the time of disposition was stable however in serious and/or critical condition from their presenting complaint thus requiring admission. The patient and/or family was given the opportunity to ask questions prior to admission, understood my verbal discussion of the plans for treatment, expected course, and the need for timely follow up as directed. Condition: Stable Disposition: Admit Heart Score - Heart Score History: Slightly Suspicious ECG: Normal Age: 45-65 Risk Factors: 3 or more risk factors Troponin: < or = normal limit Heart Score Total: 3 Heart Score Interpretation: Low Risk ACS (HS 2-3) ED Discharge Summary - Discharge Data Clinical Impression: Chest pain Condition: Fair Disposition: 09 ADMITTED INPATIENT Admission/OVS: Admit as Observation Referrals: GAURAV SPEARS MD [Primary Care Provider] - Home Medications: Ambulatory Orders Medication Instructions Recorded Acetaminophen [Aphen] 650 mg PO Q4H PRN 02/08/22 Bisacodyl [Onelax] 10 mg RC Q24H PRN 02/08/22 Duloxetine HCl [Drizalma Sprinkle] 60 mg PO DAILY 02/08/22 Famotidine [Pepcid AC] 40 mg PO DAILY 02/08/22 Levetiracetam [Keppra] 500 mg PO BID 02/08/22 Magnesium Hydroxide [Milk of 30 ml PO Q24H PRN 02/08/22 Magnesia] Melatonin 5 mg PO QHS 02/08/22 Menthol [Biofreeze] 1 applic TP BID 02/08/22 Rivastigmine Tartrate 6 mg PO BID 02/08/22 [Rivastigmine] Finasteride [Proscar 5 mg Tablet] 5 mg PO DAILY tablet 02/16/22 Tamsulosin HCl [Flomax] 0.4 mg PO DAILY 30 Days #30 capsule 02/16/22 Albuterol Sulfate [Albuterol 8.5 gm IH Q4H PRN 02/10/23 Sulfate Hfa] Divalproex Sodium [Depakote 250 mg PO BID 02/10/23 Sprinkle 125 mg Capsule] Divalproex Sodium [Divalproex 500 mg PO QHS 02/10/23 Sodium ER] Duloxetine HCl [Cymbalta] 60 mg PO DAILY 02/10/23 Famotidine [Pepcid 20 mg Tablet] 40 mg PO DAILY 02/10/23 Hydrocodone-Acetamin 5-325 mg 1 tab PO Q4H PRN 02/10/23 Medroxyprogesterone Acetate 10 mg PO BID 02/10/23 [Provera] Polyethylene Glycol 3350 [Miralax 1 packet PO DAILY PRN 02/10/23 Packet 17 gm] Potassium Chloride [Kdur 20 Meq 10 meq PO DAILY 02/10/23 Tablet] Zofran 4 mg Odt 4 cap PO .PER.INSTRUCTIONS PRN 02/10/23 Time Seen by Provider: 06/21/23 22:27 Electronically Generated By:CARLYN CAMARGO MD Generated Date/Time: 06/21/232235 Electronically Signed By: <Electronically signed by CARLYN CAMAGRO MD> 06/22/23 0157 Co Signed Electronically By: Co Signed Date/Time: CC: GAURAV SPEARS MD [facility] Work Phone: 1([phone] 412-462212-04-2023 Discharge summary Author NHI DORY [facility] June 10, 2023 6:23pm Note Date/Time June 10, 2023 6 :11pm [facility] [address] [place] [id number] HEALTH INFORMATION MANAGEMENT EMERGENCY DEPARTMENT : [id number] Signed Patient: JOHNATHAN GONZALEZ Acct:[id number] MRUN: [id number] : 1975 Sex: M Loc: ED AD M Date: 06/10/23 Room/Bed: DISC Date: History of Present Illness - General Chief Complaint: Chest Pain Symptom onset: 1530 HPI: JOAQUÍN JUAREZ AT [facility], SHE STATES THAT PATIENT STARTED WITH MIDSTERNAL CHEST PAIN. SHE STATES THAT SHE GAVE PATIENT 3 SL NITROS AND STATES THAT HE HAD NO RELIEF WITH ANY OF THE DOSES. PT ARRIVES TO THE ED BY [facility]IN [facility]. EMS STATES THEY GAVE 4 (81MG)ASA. Time Seen by Provider: 06/10/23 17:02 Nurses Notes Reviewed and Agreed With?: Yes EMS Run Sheet Reviewed: Yes Pre Hospital Orders Given By ED Physician?: No Source: Patient, [facility] records Mode of Transport: [facility] - History of Present Illness -: hour(s) Onset: during rest Pain Location: epigastric Pain Radiation: other (Pain originates epigastrium radiates along the axis of the sternum) Severity: moderate Severity scale (1-10): 6 Quality: tightness, heaviness Improves With: nitroglycerin, other (In transport patient received full dose aspirin 81 mg x 4 tablets) Worsens With: nothing Context: denies: recent illness Anginal Symptoms: nausea. denies: vomiting, diaphoresis, dyspnea Treatments Prior to Arrival: aspirin, nitroglycerin - Related Data Home Medications Medication Instructions Recorded Confirmed Acetaminophen [Aphen] 650 mg PO Q4H PRN 02/08/22 02/10/23 Bisacodyl [Onelax] 10 mg RC Q24H PRN 02/08/22 02/10/23 Duloxetine HCl [Drizalma Sprinkle] 60 mg PO DAILY 02/08/22 02/08/22 Famotidine [Pepcid AC] 40 mg PO DAILY 02/08/22 02/08/22 Levetiracetam [Keppra] 500 mg PO BID 02/08/22 02/10/23 Magnesium Hydroxide [Milk of 30 ml PO Q24H PRN 02/08/22 02/08/22 Magnesia] Melatonin 5 mg PO QHS 02/08/22 02/10/23 Menthol [Biofreeze] 1 applic TP BID 02/08/22 02/08/22 Rivastigmine Tartrate 6 mg PO BID 02/08/22 02/08/22 [Rivastigmine] Finasteride [Proscar 5 mg Tablet] 5 mg PO DAILY tablet 02/16/22 02/10/23 Tamsulosin HCl [Flomax] 0.4 mg PO DAILY 30 Days #30 capsule 02/16/22 02/10/23 Albuterol Sulfate [Albuterol 8.5 gm IH Q4H PRN 02/10/23 02/10/23 Sulfate Hfa] Divalproex Sodium [Depakote 250 mg PO BID 02/10/23 02/10/23 Sprinkle 125 mg Capsule] Divalproex Sodium [Divalproex 500 mg PO QHS 02/10/23 02/10/23 Sodium ER] Duloxetine HCl [Cymbalta] 60 mg PO DAILY 02/10/23 02/10/23 Famotidine [Pepcid 20 mg Tablet] 40 mg PO DAILY 02/10/23 02/10/23 Hydrocodone-Acetamin 5-325 mg 1 tab PO Q4H PRN 02/10/23 02/10/23 Medroxyprogesterone Acetate 10 mg PO BID 02/10/23 02/10/23 [Provera] Polyethylene Glycol 3350 [Miralax 1 packet PO DAILY PRN 02/10/23 02/10/23 Packet 17 gm] Potassium Chloride [Kdur 20 Meq 10 meq PO DAILY 02/10/23 02/10/23 Tablet] Zofran 4 mg Odt 4 cap PO .PER.INSTRUCTIONS PRN 02/10/23 02/10/23 Allergies Allergy/AdvReac Type Severity Reaction Status Date / Time No Known Allergies Allergy Verified 04/26/19 04:44 Home medications and allergies reviewed: Yes Review of System - Recent travel Recent travel outside [place] No reported travel outside [place] - Constitutional Constitutional: Present: no symptoms reported - Nose,Throat,Mouth Nose (ROS): Present: no symptoms reported Throat: Present: no symptoms reported Mouth: Present: no symptoms reported - Respiratory Respiratory: Present: no symptoms reported - CV Cardiology: Present: chest pain - GI Gastrointestinal/Abdominal: Present: other (Pain originated along the epigastrium inferior to the xiphoid process) - Genitourinary Symptoms: Present: no symptoms reported - Neuro Neurological: Present: other (Status post remote CVA with residual left-sided hemiparesis no receptive or expressive aphasia) - Muskuloskeletal Musculoskeletal: Present: no symptoms reported - Integumentary Skin: Present: no symptoms reported - Allergic/Immunologic Immunological/Allergic: Present: no symptoms reported - Hematologic Hematologic/Lymphatic: Present: no symptoms reported - Endocrine Endocrine: Present: no symptoms reported - Psychiatric Psychiatric: Present: SEE HPI, Depressed - All Others/Exceptions All Other Systems: Reviewed and Negative Except Where Noted in Documentation ED PMH/Social HX/Family HX - Respiratory Hx Respiratory Disorders: No - Cardiovascular Hx Cardiac Disorders: Yes PMH--Cardiovascular: HTN - Neurological Hx Neurological Disorder: Yes PMH--Neurological: CVA, Headaches PSH-Neurological: Neurological Surgery - Endocrine Hx Endocrine Disorders: No - Gastrointestinal Hx Gastrointestinal Disorders: No PMH--Gastrointestinal: GERD - Genitourinary Hx Genitourinary Disorders: No - Musculoskeletal Hx Musculoskeletal Disorders: Yes Other MS PMH: back pain - Reproductive Hx Reproductive Disorders: No - Psychological Hx Psychosocial Problems: No PMH--Psychological & Treatments: Anxiety, Depression Other Psychological PMH: EXPLOSIVE DISORDER, BEHAVIORS - HEENT Hx Ear, Nose Throat Disorders: No - Cancer Hx Cancer: No - Social History Highest Educational Level: High School Able to Read: Yes Able to Write: Yes Smoking Status: Never Smoked Hx Chewing Tobacco Use: No Alcohol Use: Never Any recreational drug use reported?: No Feels Threatened In Home Environment: No Feels Threatened In a Relationship: No - Family PMH No Significant Family History Ethnicity: Pt declinded to provide - [place]/Gender ID What is your current Gender Identity? Choose all that Apply: Male Define your Sexual Orientation?: Straight/Heterosexual - [place]-Suicide Severity Rating Scale 1) Wish to be :: No 2) Suicidal Thoughts:: No 6) Suicidal Behavior Question (A): LIFETIME: No 6) Suicidal Behavior Question (B): PAST 3 MONTHS: No General Exam Sepsis focused exam performed?: Yes - General Limitations: Complains of: no limitations Constitutional: Present: Obese - Head Head exam: Present: normocephalic - Eye Eye exam: Present: EOMI. Absent: scleral icterus, nystagmus Pupils: Present: PERRL - ENT ENT exam: Present: normal orophraynx - Neck Neck exam: Present: full ROM, Supple - Respiratory Respiratory exam: Present: lungs clear and equal bilaterally - Cardiovascular Cardiovascular Exam: Present: regular rate, normal rhythm - GI/Abdominal GI/Abdominal exam: Present: soft, non tender, normal bowel sounds. Absent: guarding - Rectal Rectal exam: Present: deferred - Extremities Exam Extremities exam: Present: normal inspection, other (3 out of 5 strength on the left upper and lower extremities) - Back Exam Back exam: Present: normal inspection - Neurological Exam Neurological exam: Present: alert, oriented X3, CN II-XII intact - Psychiatric Psychiatric exam: Present: normal affect - Skin Skin Color: Present: Normal, [place] Skin exam: Present: warm, dry - Vital Signs Vital Signs 06/10/23 06/10/23 06/10/23 16:27 17:01 17:10 Temperature 97.3 F L Pulse Rate 70 69 Pulse Rate [ 88 Window Draper ] Respiratory 13 Rate Blood Pressure 113/77 Blood Pressure 120/78 [Right Arm] O2 Sat by Pulse 100 96 96 Oximetry(%) 06/10/23 17:20 Temperature Pulse Rate 67 Pulse Rate [ Window Draper ] Respiratory Rate Blood Pressure Blood Pressure [Right Arm] O2 Sat by Pulse 95 Oximetry(%) Chest Pain MDM - Lab Data Result diagrams: 06/10/23 17:40 06/10/23 17:40 Lab Results 06/10/23 06/10/23 06/10/23 Range/Units 17:40 17:40 17:40 WBC 8.3 (3.6-10.8) K/uL RBC 4.23 (4.13-5.69) M/uL Hgb 12.9 (12.4-17.3) g/dL Hct 38.9 (36.7-50.6) % MCV 92.0 (80.0-94.0) fL MCH 30.5 (27.0-31.0) pg MCHC 33.2 (33.0-37.0) g/dL RDW 12.4 (11.5-14.5) % Plt Count 132 L (148-402) K/uL MPV 9.3 (7.4-10.4) fL Neut % (Auto) 67.2 H (43.0-65.0) % Lymph % (Auto) 23.5 (17.0-45.5) % [place] % (Auto) 7.7 (5.5-11.7) % Eos % (Auto) 1.3 (0.9-2.9) % Baso % (Auto) 0.2 (0.2-1.0) % Abs Immat Gran (man) 0.01 (0.00-0.10) K/uL Absolute Neuts (auto) 5.57 H (2.20-4.80) K/uL Absolute Lymphs (auto) 2.00 (1.30-2.90) K/uL Absolute Monos (auto) 0.60 (0.30-0.80) K/uL Absolute Eos (auto) 0.10 (0.00-0.20) K/uL Absolute Basos (auto) 0.02 (0.00-0.10) K/uL Immature Gran % 0.10 (0.00-1.00) % Sodium 144 (132-145) mmol/L Potassium 3.8 (3.3-5.1) mmol/L Chloride 109 (94-110) mmol/L Total Carbon Dioxide 28 (21-34) mmol/L Anion Gap 10.8 (8.0-16.0) mmol/L BUN 12.3 (3.2-26.9) mg/dL Creatinine 1.01 (0.50-1.17) mg/dL Est GFR (MDRD) Af Amer > 60 (>60) Est GFR (MDRD) Non-Af > 60 (>60) BUN/Creatinine Ratio 12 (6-20) Glucose 113 H (65-100) mg/dL Calcium 8.4 (8.2-10.0) mg/dL Total Bilirubin 0.36 (0.00-0.99) mg/dL AST 135 H (3-39) U/L ALT 114 H (13-66) U/L Alkaline Phosphatase 107 (54-112) U/L Creatine Kinase 37 L (39-308) U/L Troponin I High Sens (0-76) ng/L NT-Pro-B Natriuret Pep 91 (0-125) pg/mL Total Protein 5.5 L (6.1-8.2) g/dL Albumin 2.2 L (3.4-5.0) g/dL Globulin 3.3 (1.5-4.5) g/dL Albumin/Globulin Ratio 0.7 L (1.1-2.5) 06/10/23 Range/Units 17:40 WBC (3.6-10.8) K/uL RBC (4.13-5.69) M/uL Hgb (12.4-17.3) g/dL Hct (36.7-50.6) % MCV (80.0-94.0) fL MCH (27.0-31.0) pg MCHC (33.0-37.0) g/dL RDW (11.5-14.5) % Plt Count (148-402) K/uL MPV (7.4-10.4) fL Neut % (Auto) (43.0-65.0) % Lymph % (Auto) (17.0-45.5) % [place] % (Auto) (5.5-11.7) % Eos % (Auto) (0.9-2.9) % Baso % (Auto) (0.2-1.0) % Abs Immat Gran (man) (0.00-0.10) K/uL Absolute Neuts (auto) (2.20-4.80) K/uL Absolute Lymphs (auto) (1.30-2.90) K/uL Absolute Monos (auto) (0.30-0.80) K/uL Absolute Eos (auto) (0.00-0.20) K/uL Absolute Basos (auto) (0.00-0.10) K/uL Immature Gran % (0.00-1.00) % Sodium (132-145) mmol/L Potassium (3.3-5.1) mmol/L Chloride (94-110) mmol/L Total Carbon Dioxide (21-34) mmol/L Anion Gap (8.0-16.0) mmol/L BUN (3.2-26.9) mg/dL Creatinine (0.50-1.17) mg/dL Est GFR (MDRD) Af Amer (>60) Est GFR (MDRD) Non-Af (>60) BUN/Creatinine Ratio (6-20) Glucose (65-100) mg/dL Calcium (8.2-10.0) mg/dL Total Bilirubin (0.00-0.99) mg/dL AST (3-39) U/L ALT (13-66) U/L Alkaline Phosphatase (54-112) U/L Creatine Kinase (39-308) U/L Troponin I High Sens 6 (0-76) ng/L NT-Pro-B Natriuret Pep (0-125) pg/mL Total Protein (6.1-8.2) g/dL Albumin (3.4-5.0) g/dL Globulin (1.5-4.5) g/dL Albumin/Globulin Ratio (1.1-2.5) Orders: Labs 06/10/23 16:40 12-Lead per nursing [RC] STAT EKG [CAR] Stat 06/10/23 17:27 ED-IV [RC] ONE CHEST AP [DIAG] Stat Telemetry [RC] ONE 06/10/23 17:40 CBC w/Auto Differential [HEM] Stat Comprehensive Metabolic Panel [CHM] Stat Creatine Kinase [CHM] Stat High Sensitivity Troponin I* [CHM] Stat NT Pro-BNP [CHM] Stat 06/10/23 19:28 High Sensitivity Troponin I* [CHM] Routine 06/10/23 21:28 High Sensitivity Troponin I* [CHM] Routine - Radiology Data IMPRESSIONS Electrocardiogram 06/10/23 16:40 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 Patient presents after watching television and had the sudden onset of pain localized to the epigastrium with a feeling of tightness and heaviness that extends along the entire axis of the sternum no associated nausea vomiting or diaphoresis. At the nursing facility patient was given multiple nitroglycerin without resolution of the discomfort and pain. In transport patient was given full dose aspirin and arrival to the ED he was pain-free and nondiaphoretic. Patient to be evaluated for precordial chest pain has no prior history of coronary artery disease. Patient did undergo some form of neurological surgical intervention during his stroke. Labs reviewed and independently interpreted by myself CBC well within normal limits without leukocytosis appropriate H&H with normocytic normochromic indices and adequate platelets patient displayed no form of metabolic the arrangement with normal electrolytes and no endorgan dysfunction EKG and imaging reviewed and independently interpreted by myself EKG displayed normal sinus rhythm with baseline wandering with some T wave abnormalities possibly secondary to baseline wandering along the precordial leads no ST elevation no T wave inversions Presenting clinical condition necessitates admission or observation consideration: No symptoms appear more consistent with gastroesophageal reflux initial EKG obtained by EMS displayed no ST elevation Independent Hx provided by: Patient, also the nursing facility provided information on patient's symptoms and treatment Med Rx considered but ultimately not given: Beta-salazar Dx tests considered but ultimately not ordered: CTA Social determinant that may affects healthcare: Pharmacy closed Pt?s case/impression summarized and discussed with: Patient, Family patient presents now asymptomatic with resolution of pain acknowledges some burning sensation with the discomfort but no bitter or sour taste to the posterior pharynx Although not an exhaustive list of Differential Diagnosis (though considered), patient?s HPI, PE, and other findings are not suggestive of: Acute Coronary Syndrome, Sepsis, CVA/TIA, LINDA, renal failure, electrolyte abnormality, PE, aortic dissection, symptomatic anemia, cellulitis, DKA, UTI, pneumonia, hepatic encephalopathy, DVT, migraine, ICH, pneumothorax, fracture. Patient at the time of disposition was stable and clinically well appearing. The patient and family was given the opportunity to ask questions prior to admission/discharge, understood my verbal discussion of the plans for treatment, expected course, and the need for timely follow up as directed. Condition: Stable this is a 48-year-old status post remote CVA with residual left-sided hemiparesis presents while at rest complaining of onset of epigastric pain with radiation into his sternum without associated diaphoresis nausea or vomiting nor dyspnea. Evaluation with diagnostic labs as well as high-sensitivity troponin were well within normal limits as well as a radiograph of the chest noting a normal cardiac silhouette no parenchymal lung infiltrates no pleural-based disease. Patient will be given Protonix 40 mg IV and will be discharged on Prilosec for outpatient follow-up. ED Discharge Summary - Discharge Data Clinical Impression: Atypical chest pain, Gastroesophageal reflux Condition: Good Disposition: 01 HOME / SELF CARE Referrals: GAURAV SPEARS MD [Primary Care Provider] - Home Medications: Ambulatory Orders Medication Instructions Recorded Acetaminophen [Aphen] 650 mg PO Q4H PRN 02/08/22 Bisacodyl [Onelax] 10 mg RC Q24H PRN 02/08/22 Duloxetine HCl [Drizalma Sprinkle] 60 mg PO DAILY 02/08/22 Famotidine [Pepcid AC] 40 mg PO DAILY 02/08/22 Levetiracetam [Keppra] 500 mg PO BID 02/08/22 Magnesium Hydroxide [Milk of 30 ml PO Q24H PRN 02/08/22 Magnesia] Melatonin 5 mg PO QHS 02/08/22 Menthol [Biofreeze] 1 applic TP BID 02/08/22 Rivastigmine Tartrate 6 mg PO BID 02/08/22 [Rivastigmine] Finasteride [Proscar 5 mg Tablet] 5 mg PO DAILY tablet 02/16/22 Tamsulosin HCl [Flomax] 0.4 mg PO DAILY 30 Days #30 capsule 02/16/22 Albuterol Sulfate [Albuterol 8.5 gm IH Q4H PRN 02/10/23 Sulfate Hfa] Divalproex Sodium [Depakote 250 mg PO BID 02/10/23 Sprinkle 125 mg Capsule] Divalproex Sodium [Divalproex 500 mg PO QHS 02/10/23 Sodium ER] Duloxetine HCl [Cymbalta] 60 mg PO DAILY 02/10/23 Famotidine [Pepcid 20 mg Tablet] 40 mg PO DAILY 02/10/23 Hydrocodone-Acetamin 5-325 mg 1 tab PO Q4H PRN 02/10/23 Medroxyprogesterone Acetate 10 mg PO BID 02/10/23 [Provera] Polyethylene Glycol 3350 [Miralax 1 packet PO DAILY PRN 02/10/23 Packet 17 gm] Potassium Chloride [Kdur 20 Meq 10 meq PO DAILY 02/10/23 Tablet] Zofran 4 mg Odt 4 cap PO .PER.INSTRUCTIONS PRN 02/10/23 Time Seen by Provider: 06/10/23 17:02 Electronically Generated By:NHI CONNORS MD Generated Date/Time: 06/10/23 1808 Electronically Signed By: <Electronically signed by NHI CONNORS MD> 06/10/23 1823 Co Signed Electronically By: Co Signed Date/Time: CC: GAURAV SPEARS MD [facility] Work Phone: 1(167) 792-579812-01-2023 Evaluation note* Diagnosis Onset Date Resolution Status Chest pain acute Constipation June, acute Excessive sweating acute Hypertension acute Nausea and vomiting June, acute [facility] Work Phone: 1(933) 321-118512-01-2023 Evaluation note* Diagnosis Onset Date Resolution Status Chest pain acute Acute gastritis with hemorrhage June, acute Constipation June, acute Excessive sweating acute Nausea and vomiting June, acute Urinary tract infection June, ac te-moak Benign prostatic hyperplasia chronic Hypertension [facility] Work Phone: 1(796) 606-548411-14-2023 History of Present illness Narrative* Jenny Sahu, RN - 05/21/2023 3:54 PM EST Case Request Planning for Dr. Wilton Rankin DO Name: Johnathan Gonzalez : 1975 Insurance: Oscar PCP: Kimmie, Physician Allergies: Patient has no known allergies. Health Information: Height: Ht Readings from Last 1 Encounters: 05/26/19 5' 10 Weight: Wt Readings from Last 1 Encounters: 10/12/19 78.4 kg (172 lb 13.5 oz) Smoker: Social History Tobacco Use Smoking Status Former Smokeless Tobacco Current Types: Snuff Alcohol: Social History Substance and Sexual Activity Alcohol Use Yes Alcohol/week: 12.0 standard drinks of alcohol Types: 12 Cans of beer per week Comment: per week DM: NO A1C: Lab Results Component Value Date HGBA1C 5.3 05/25/2019 Chest XR: NO CAD: NO Cardiac Clearance: NO [employer]: n/a Perioperative Glycemic Protocol: NO Surgical Date Requested: [] STAT (as soon as able) [] AWAIS (triaged with the urgent backlog) [x] Routine Location of Digital Imaging Studies: [] Disc [] Synapse [x] [facility]/EPIC Preoperative Testing (PAT) plan: [] Via PCP [] Via PAT Patient at [facility] have physician do PAT [facility] Care: NO Call Eladia [phone] Ext [phone] to schedule surgery for patient. Brother has POA Nasal Culture MRSA screen: YES documented in this [id number] History of Present illness Narrative* Wilton Rankin MD - 05/15/2023 10:18 AM EST Images from the original note were not included. Dear Dr. No, Physician Johnathan Gonzalez presents for a follow-up visit today. 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 There was significant difficulty in establishing a POA and therefore cranioplasty has been delayed. He now presents with his brother Eladio, who is his established POA and wishes to undergo right-sided cranioplasty. He denies any recent seizures. He denies any recent headache. He does chew tobacco. PHYSICAL EXAM Patient is awake, alert. His speech is fluent, sometimes inappropriate. Full strength noted in the right upper and lower extremity. Left hemiparesis noted. Patient unable to ambulate and is wheelchair-bound. Right-sided hemicraniectomy incision is well-healed and shows no evidence of infection or other complication. IMPRESSION Stable postoperative course PLAN: We did discuss the cranioplasty operation in detail during today's visit. He will need a synthetically manufactured peek implant for the procedure as a result of the long time course since his hemicraniectomy and bony remodeling that has taken place since that time rendering his previous bone flap difficult to replace into the defect. Discussion of the Nature and Risks of surgery: Surgical treatment would take the form of Right sided cranioplasty I explained to the patient/family the nature of surgical treatment. I discussed the usual hospital and recovery course associated with this type of operation. I also discussed in detail the risks associated with this operation. The risks include but are not limited to: the need for additional surgery, bleeding, infection, spinal fluid leakage, coma, seizures,as well as medical complications during the postoperative period. At this time, the patient wishes to proceed with surgery. This can be performed soon after the peekimplant has been manufactured. This process usually takes about a month or so. In addition, I strongly recommended that he quit chewing tobacco to optimize surgical healing. Therefore, we will plan for surgery in early July. All questions answered. I will keep you apprised of his progress. Wilton Rankin MD, FAANS documented in this [id number] Consult note Author KAYA DICK [facility] February 11, 2023 9:37pm Note Date/Time February 11, 2023 9:3 3pm [facility] [address] [place] [id number] HEALTH INFORMATION MANAGEMENT CONSULTATION : [id number] Signed Patient: JOHNATHAN GONZALEZ Acct:[id number] MRUN: [id number] : 1975 Sex: M Loc: ICU AD M Date: 02/10/23 Room/Bed: 356-A DISC Date: 02/11/23 CARDIOLOGY CONSULT THIS DOCUMENT HAS BEEN CREATED USING VOICE RECOGNITION SOFTWARE AND MAY CONTAIN GRAMMATICAL, SYNTAX, AND TYPOGRAPHICAL ERRORS. Admission Date: 02/10/23 18:24 Current Date: 02/11/23 Chief Complaint: Chest pain Referring Physician: Hospitalist HPI: This is a 48yo M with no known CAD. Patient has hx of CVA with left sided paresis. He had sharp chest pain yesterday, worse with inspiration. He was admitted under observation for further evaluation, his chest pain is now resolved. Past cardiac history: None, denied prior [facility]. Allergies/Adverse Reactions: No Known Allergies Allergy (Verified 04/26/19 04:44) Last Vital Signs Temp 97.2 F L 02/11/23 16:30 Pulse 59 L 02/11/23 12:30 Resp 13 02/10/23 19:42 BP 127/94 H 02/11/23 16:00 Pulse Ox 94 L 02/11/23 16:30 FiO2 Laboratory Last Values WBC 6.5 K/uL (3.6-10.8) 02/11/23 05:50 RBC 4.51 M/uL (4.13-5.69) 02/11/23 05:50 Hgb 13.0 g/dL (12.4-17.3) 02/11/23 05:50 Hct 39.7 % (36.7-50.6) 02/11/23 05:50 MCV 88.0 fL (80.0-94.0) 02/11/23 05:50 MCH 28.8 pg (27.0-31.0) 02/11/23 05:50 MCHC 32.7 g/dL (33.0-37.0) L 02/11/23 05:50 RDW 13.4 % (11.5-14.5) 02/11/23 05:50 Plt Count 135 K/uL (148-402) L 02/11/23 05:50 MPV 9.2 fL (7.4-10.4) 02/11/23 05:50 Neut % (Auto) 60.8 % (43.0-65.0) 02/11/23 05:50 Lymph % (Auto) 25.3 % (17.0-45.5) 02/11/23 05:50 [place] % (Auto) 10.1 % (5.5-11.7) 02/11/23 05:50 Eos % (Auto) 3.1 % (0.9-2.9) H 02/11/23 05:50 Baso % (Auto) 0.5 % (0.2-1.0) 02/11/23 05:50 Abs Immat Gran (man) 0.01 K/uL (0.00-0.10) 02/11/23 05:50 Absolute Neuts (auto) 3.98 K/uL (2.20-4.80) 02/11/23 05:50 Absolute Lymphs (auto) 1.70 K/uL (1.30-2.90) 02/11/23 05:50 Absolute Monos (auto) 0.70 K/uL (0.30-0.80) 02/11/23 05:50 Absolute Eos (auto) 0.20 K/uL (0.00-0.20) 02/11/23 05:50 Absolute Basos (auto) 0.03 K/uL (0.00-0.10) 02/11/23 05:50 Immature Gran % 0.20 % (0.00-1.00) 02/11/23 05:50 PT 10.2 sec (8.9-12.2) 02/10/23 16:17 INR 1.01 ratio 02/10/23 16:17 APTT 24.3 sec (19.5-32.1) 02/10/23 16:17 D-Dimer 1.06 mg/L FEU (0.00-0.49) H* 02/10/23 16:17 Sodium 146 mmol/L (132-145) H 02/11/23 05:50 Potassium 4.1 mmol/L (3.3-5.1) 02/11/23 05:50 Chloride 111 mmol/L (94-110) H 02/11/23 05:50 Total Carbon Dioxide 31 mmol/L (21-34) 02/11/23 05:50 Anion Gap 8.1 mmol/L (8.0-16.0) 02/11/23 05:50 BUN 10.6 mg/dL (3.2-26.9) 02/11/23 05:50 Creatinine 1.14 mg/dL (0.50-1.17) 02/11/23 05:50 Est GFR (MDRD) Af Amer > 60 (>60) 02/11/23 05:50 Est GFR (MDRD) Non-Af > 60 (>60) 02/11/23 05:50 BUN/Creatinine Ratio 9 (6-20) 02/11/23 05:50 Glucose 84 mg/dL (65-100) 02/11/23 05:50 Calcium 8.4 mg/dL (8.2-10.0) 02/11/23 05:50 Magnesium 2.2 mg/dL (1.3-2.3) 02/10/23 16:17 Total Bilirubin 0.32 mg/dL (0.00-0.99) 02/10/23 16:17 AST 110 U/L (3-39) H 02/10/23 16:17 ALT 85 U/L (13-66) H 02/10/23 16:17 Alkaline Phosphatase 109 U/L (54-112) 02/10/23 16:17 Troponin I High Sens 5 ng/L (0-76) 02/10/23 18:30 Troponin I Hi Sens Del 20 % 02/10/23 18:30 Troponin I Hi Sens Abs Chng 1 ng/L 02/10/23 18:30 NT-Pro-B Natriuret Pep 50 pg/mL (0-125) 02/10/23 16:17 Total Protein 5.8 g/dL (6.1-8.2) L 02/10/23 16:17 Albumin 2.1 g/dL (3.4-5.0) L 02/10/23 16:17 Globulin 3.7 g/dL (1.5-4.5) 02/10/23 16:17 Albumin/Globulin Ratio 0.6 (1.1-2.5) L 02/10/23 16:17 Patient History Acetaminophen [Aphen] 650 mg PO Q4H PRN 02/08/22 [History Confirmed 02/10/23] Bisacodyl [Onelax] 10 mg RC Q24H PRN 02/08/22 [History Confirmed 02/10/23] Duloxetine HCl [Drizalma Sprinkle] 60 mg PO DAILY 02/08/22 [History Confirmed 02/08/22] Famotidine [Pepcid AC] 40 mg PO DAILY 02/08/22 [History Confirmed 02/08/22] Levetiracetam [Keppra] 500 mg PO BID 02/08/22 [History Confirmed 02/10/23] Magnesium Hydroxide [Milk of Magnesia] 30 ml PO Q24H PRN 02/08/22 [History Confirmed 02/08/22] Melatonin 5 mg PO QHS 02/08/22 [History Confirmed 02/10/23] Menthol [Biofreeze] 1 applic TP BID 02/08/22 [History Confirmed 02/08/22] Rivastigmine Tartrate [Rivastigmine] 6 mg PO BID 02/08/22 [History Confirmed 02/08/22] Albuterol Sulfate [Albuterol Sulfate Hfa] 8.5 gm IH Q4H PRN 02/10/23 [History Confirmed 02/10/23] Divalproex Sodium [Depakote Sprinkle 125 mg Capsule] 250 mg PO BID 02/10/23 [History Confirmed 02/10/23] Divalproex Sodium [Divalproex Sodium ER] 500 mg PO QHS 02/10/23 [History Confirmed 02/10/23] Duloxetine HCl [Cymbalta] 60 mg PO DAILY 02/10/23 [History Confirmed 02/10/23] Famotidine [Pepcid 20 mg Tablet] 40 mg PO DAILY 02/10/23 [History Confirmed 02/10/23] Hydrocodone-Acetamin 5-325 mg 1 tab PO Q4H PRN 02/10/23 [History Confirmed 02/10/23] Medroxyprogesterone Acetate [Provera] 10 mg PO BID 02/10/23 [History Confirmed 02/10/23] Polyethylene Glycol 3350 [Miralax Packet 17 gm] 1 packet PO DAILY PRN 02/10/23 [History Confirmed 02/10/23] Potassium Chloride [Kdur 20 Meq Tablet] 10 meq PO DAILY 02/10/23 [History Confirmed 02/10/23] Zofran 4 mg Odt 4 cap PO .PER.INSTRUCTIONS PRN 02/10/23 [History Confirmed 02/10/23] RX history Finasteride [Proscar 5 mg Tablet] 5 mg PO DAILY tablet 02/16/22 [Rx Confirmed 02/10/23] Tamsulosin HCl [Flomax] 0.4 mg PO DAILY 30 Days #30 capsule 02/16/22 [Rx Confirmed 02/10/23] Past Medical History Hx Ear/Nose/Throat Disorders: No Hx Neurological Disorder: Yes PMH-Neurological: Confirms: Headaches Hx Psychosocial Problems: No PMH--Psychological & Treatments: Confirms: Anxiety, Depression PMH--Other-Psyc:: EXPLOSIVE DISORDER, BEHAVIORS Hx Cardiac Disorders: Yes PMH--Cardiovascular: Confirms: HTN Hx Respiratory Disorders: No Hx Endocrine Disorders: No Hx Musculoskeletal Disorders: Yes PSH--Other-MS:: CRANIOTOMY ON RIGHT, WEARS HELMET WHEN OUT OF BED Hx Reproductive Disorders: No Hx Genitourinary Disorders: No PMH--Other-:: back pain Hx Gastrointestinal Disorders: No PMH--Gastrointestinal: Confirms: GERD Hx Cancer: No Past Social History Lives with: Nursing Facility Highest Educational Level: High School Able to Read: Yes Able to Write: Yes Alcohol Use: Never Type of Alcohol Used: BEER Frequency: DAILY - [place]/Gender ID What is your current Gender Identity? Choose all that Apply: Male Define your Sexual Orientation?: Straight/Heterosexual - [place]-Suicide Severity Rating Scale 1) Wish to be :: No 2) Suicidal Thoughts:: No 6) Suicidal Behavior Question (A): LIFETIME: No 6) Suicidal Behavior Question (B): PAST 3 MONTHS: No Family Medical History - Family Medical History No Significant Family History Ethnicity: Pt declinded to provide Review of Systems General: Denies: Fever Cardiovascular: Confirms: Chest Pain-Sharp. Denies: Chest Pain-Heavy, Orthopnea Genitourinary: Denies: Dysuria Skin: Denies: Rash Cardiology Exam General: Yes: Alert, Oriented HEENT: Yes: Atraumatic Lungs: Yes: Clear to auscultation, Normal air movement Cardiovascular: Yes: Regular Rate, Normal S2, Normal S1 Extremities/Skin/Pulses: No: Edema Neurological: Yes: Speech Clear Psych/Mental Status: Yes: Mental status NL ASSESSMENT/PLAN Reviewed Vitals, Medications, Labs and Notes. 1) Chest pain -Atypical. Pleuritic. Has been ruled out with two hs-troponins. Normal BNP. Chest pain has resolved. Echo today showed normal ejection fraction and no wall-motion abnormalities. Would do a stress test as an outpatient. 2) Hx of CVA Discussed with Dr. Pepper, ok to be discharged from cardiac perspective. Electronically Generated By:KAYA DICK MD Generated Date/Time: 02/11/232130 Electronically Signed By: <Electronically signed by KAYA DICK MD> 02/11/232136 Co Signed Electronically By: Co Signed Date/Time: CC: BOB MCGUIRE MD; TERESA ROMEO MD [facility] Work Phone: [phone] 482-613308-07-2023 History and physical note Author PIA GARLAND [facility] February 11, 2023 9:54am Note Date/Time February 10, 2023 7:4 6pm [facility] [address] [place] [address] HEALTH INFORMATION MANAGEMENT HISTORY AND PHYSICAL : Signed Patient: JOHNATHAN GONZALEZ Acct:[id number] MRUN: [id number] : 1975 Sex: M Loc: ICU AD M Date: 02/10/23 Room/Bed: 356-A DISC Date: History of Present Illness Date Of Admission: 02/10/23 Primary Care Physician: TERESA ROMEO Chief Complaint: Chest pain History of Present Illness: Visit History JOHNATHAN GONZALEZ is a 48 year old M patient of TERESA ROMEO. Patient was admitted from to room 356, bed A on 02/10/23 18:24. Pt was evaluated for complaints of , then admitted to [facility] for CHEST PAIN. JOHNATHAN was admitted as a ADM to [facility] for further evaluation and treatment. Pt was seen and evaluated on 02/10/231940, by this provider, RUFUS MELENDEZ CNP. This is a 48-year-old male patient presenting to emergency department with complaints of chest pain that started approximately 1430. Patient described thepain as sharp stabbing midsternal nonradiating and rated it a 10 out of 10 on the adult pain scale. Patient denies any associated nausea does admit to diaphoresis when having the pain. Patient does admit to drinking an energy drink shortly before chest pain started. Patient brought by EMS to the emergency department for evaluation and treatment. In the emergency department patient EKG that showed sinus rhythm at a rate of 82 chest x-ray was negative for acute processes and CTA of the chest/thorax showed no evidence of pulmonary embolism or acute pulmonary abnormality. Laboratory work- up was largely unremarkable with the exception of a D-dimer of 1.06 due to elevated D- dimer CT of the chest was performed negative for PE. In the emergency department patientwas given 20 mg of Pepcid p.o. 4 mg IV push morphine sulfate and 4 mg of Zofran IV push. Chest pain resolved patient currently denies any further episodes of chest pain denies shortness of breath headaches dizziness nausea vomiting. Patient resides at [facility]. Denies tobacco alcohol or illicit drug use. Denies contact with sick individuals. Patient hasa past medical history that includes hypertension headaches anxiety and depression. Allergies/Adverse Reactions: No Known Allergies Allergy (Verified 04/26/19 04:44) Home Medications: Patient History Acetaminophen [Aphen] 650 mg PO Q4H PRN 02/08/22 [History Confirmed 02/08/22] Bisacodyl [Onelax] 10 mg RC Q24H PRN 02/08/22 [History Confirmed 02/08/22] Duloxetine HCl [Drizalma Sprinkle] 60 mg PO DAILY 02/08/22 [History Confirmed 02/08/22] Famotidine [Pepcid AC] 40 mg PO DAILY 02/08/22 [History Confirmed 02/08/22] Levetiracetam [Keppra] 500 mg PO BID 02/08/22 [History Confirmed 02/08/22] Magnesium Hydroxide [Milk of Magnesia] 30 ml PO Q24H PRN 02/08/22 [History Confirmed 02/08/22] Melatonin 5 mg PO QHS 02/08/22 [History Confirmed 02/08/22] Menthol [Biofreeze] 1 applic TP BID 02/08/22 [History Confirmed 02/08/22] Rivastigmine Tartrate [Rivastigmine] 6 mg PO DAILY 02/08/22 [History Confirmed 02/08/22] Depakote 250 mg ER Tablet 02/10/23 [History] Hydrocodone-Acetamin 5-325 mg 02/10/23 [History] Zofran 4 mg Odt 4 cap PO .PER.INSTRUCTIONS PRN 02/10/23 [History Confirmed 02/10/23] RX history Finasteride [Proscar 5 mg Tablet] 5 mg PO DAILY tablet 02/16/22 [Rx] Potassium Chloride [Kdur 20 Meq Tablet] 20 meq PO BID 3 Days #6 tablet 02/16/22 [Rx] Tamsulosin HCl [Flomax] 0.4 mg PO DAILY 30 Days #30 capsule 02/16/22 [Rx] Past Social History Highest Educational Level: High School Able to Read: Yes Able to Write: Yes Alcohol Use: Never - [place]/Gender ID What is your current Gender Identity? Choose all that Apply: Male Define your Sexual Orientation?: Straight/Heterosexual - [place]-Suicide Severity Rating Scale 1) Wish to be :: No 2) Suicidal Thoughts:: No 6) Suicidal Behavior Question (A): LIFETIME: No 6) Suicidal Behavior Question (B): PAST 3 MONTHS: No Past Medical History Hx Ear/Nose/Throat Disorders: No Hx Neurological Disorder: Yes PMH-Neurological: Confirms: Headaches Hx Psychosocial Problems: No PMH--Psychological & Treatments: Confirms: Anxiety, Depression Hx Cardiac Disorders: Yes PMH--Cardiovascular: Confirms: HTN Hx Respiratory Disorders: No Hx Endocrine Disorders: No Hx Musculoskeletal Disorders: Yes Hx Reproductive Disorders: No Hx Genitourinary Disorders: No PMH--Other-:: back pain Hx Gastrointestinal Disorders: No Hx Cancer: No Family Medical History - Family Medical History No Significant Family History Ethnicity: Pt declinded to provide Review of Systems General: Denies: Fever, Chills, Sweats, Weakness, Fatigue, Weight Gain, Weight Loss, Other Head/Eye: Denies: Headache, Head Injury/Trama, Hear Loss, Pain, Itching, Redness, Matting, Blurry Vision, Double Vision, Scotoma (Spots), Amauriosis, Excessive Tearing, Other ENT: Denies: Earache, Ear Discharge, Decreased Hearing, Tinnitus, Nose Congestion, Nose Drainage, Nasal Ulcers, Epitaxis, Sore Throat, Throat Swelling, Hoarseness, Loss Of Voice, Tongue Pain, Tongue Swelling, Lip Swelling, Dental Pain, Cervical, Other Respiratory: Denies: Cough, Shortness of Breath, Wheezing, Sputum Production, Hemoptysis, Dyspnea on Exertion, Pleuritic Pain, Other Cardiovascular: Denies: Chest Pain-Sharp, Chest Pain-Heavy, Orthopnea, Short of Breath, Dyspnea on Exertion, Paroxysmal Noc. Dyspnea, Edema, Palpitations, Light Headedness, 7, Syncope, Diaphoresis, Claudication, Edema, Other Gastrointestinal: Denies: Nausea, Vomiting, Abdominal Pain, Diarrhea, Constipation, Melena, Hematochezia, Hematemesis, Rectal Pain, Other Genitourinary: Denies: Dysuria, Frequency, Incontinence, Hematuria, Retention, Urgency, Other Musculoskeletal: Denies: Neck Pain, Shoulder Pain, Arm Pain, Back Pain, Hand Pain, Leg Pain, Foot Pain, Other Skin: Denies: Rash, Lesions, Jaundice, Bruising, Other Neurological: Denies: Weakness, Numbness, Incoordination, Change in Speech, Confusion, Seizures, Other Physical Exam Review of Systems Completed?: Yes Vital Signs: Vital Signs (72 hours) 02/10/23 02/10/23 02/10/23 16:02 16:40 16:50 Temperature 98.2 F Pulse Rate 73 78 Pulse Rate [VS 97 Machine] Respiratory 18 Rate Blood Pressure Blood Pressure 122/85 [Right Arm] O2 Sat by Pulse 97 97 Oximetry(%) 02/10/23 02/10/23 02/10/23 17:00 17:10 17:20 Temperature Pulse Rate 67 66 65 Pulse Rate [VS Machine] Respiratory Rate Blood Pressure Blood Pressure [Right Arm] O2 Sat by Pulse 97 97 96 Oximetry(%) 02/10/23 02/10/23 02/10/23 17:30 17:32 17:40 Temperature Pulse Rate 72 63 66 Pulse Rate [VS Machine] Respiratory Rate Blood Pressure 146/86 H Blood Pressure [Right Arm] O2 Sat by Pulse 95 92 L 92 L Oximetry(%) 02/10/23 02/10/23 19:18 19:19 Temperature Pulse Rate 87 Pulse Rate [VS Machine] Respiratory Rate Blood Pressure 135/88 Blood Pressure [Right Arm] O2 Sat by Pulse 97 Oximetry(%) General: Yes: Alert, Oriented, Cooperative/Pleasant, No acute distress HEENT: Yes: Atraumatic, PERRLA, Mucous membr. moist/pink, EOMI Lungs: Yes: Unlabored, Diminished Cardiovascular: Yes: Regular rate, Normal S2, Normal S1. No: No murmurs, Gallops, Rubs Abdomen: Yes: Bowel Sounds X4, Soft, No Tenderness, Flatus (Present), Bowel Pattern. No: Hepatospenomegaly, Masses, Nausea/Vomiting, Emesis Present, Constipation, Diarrhea Extremities: Yes: Normal pulses. No: Clubbing, Cyanosis, Edema, No tenderness/swelling, Mottling noted Skin: No: Rashes, Skin Breakdown, Significant lesions, Open Wound Present, Skin Tear Neurological: Yes: Speech Unclear, Cognitive Ability Intact Psych/Mental Status: Yes: Mental status NL, Mood Appropriate Genitourinary/Rectal: Yes: Voiding, Deferred-Not Relevant Breast Exam: Yes: Deferred-Not Relevant Impressions - Problems (1) Anxiety Status: Chronic Priority: Medium Current Visit: Yes (2) Depression Status: Chronic Priority: Medium Current Visit: Yes (3) Chest pain Status: Acute Priority: High Present on admission?: Yes Current Visit: Yes Plan/Treatment Current Plan: Continue Current Course of Treatment, See New Orders Plan: 1. Chest pain: Patient presented to ED from SNF for complaints of Chest pain that was midsternal sharp and non-radiating Admits to associated SOB and diaphoresis. Denies nausea or vomiting with chest pain episode. Patient given morphine zofran and pepcid in the ED and chest pain has resolved. High sensitivity troponin was negative EKG showed normal SR. Patient admitted for observation cardiology consulted appreciate recs. Echo ordered for morning. 2. Anxiety/depression: Continue home medications 3. DVT prophylaxis: Lovenox 4. GI prophylaxis: Protonix New Orders: New Orders-Lab 02/10/23 19:30 High Sensitivity Troponin I* [CHM] Stat 02/10/23 21:30 High Sensitivity Troponin I* [CHM] Routine 02/11/23 04:00 Basic Metabolic Panel [CHM] DAILY@0400 CBC w/Auto Differential [HEM] DAILY@04002/12/23 04:00 Basic Metabolic Panel [CHM] DAILY@0400 CBC w/Auto Differential [HEM] DAILY@0400 02/13/23 04:00 Basic Metabolic Panel [CHM] DAILY@0400 CBC w/Auto Differential [HEM] DAILY@0400 New Orders-Radiology 02/11/23 07:00 ECHO WITH DOPPLER [CAR] Routine New Orders-Nursing Care 02/10/23 19:30 cardiac diet [DIET] 02/11/23 00:01 Nothing Per Oral [DIET] Medications 02/10/23 19:29 Ondansetron HCl/Pf [Zofran 4 mg/2 ml Injection] 4 mg IVP Q4H PRN 02/10/23 20:00 Enoxaparin Sodium [Lovenox 40 mg/0.4 ml Injection] 40 mg SQ Q24H Pantoprazole Sodium [Protonix 40 mg Injection] 40 mg IVP Q24H Visit Coding - VISIT CODING Date of Service: 02/10/23 Billing Provider:: RUFUS MELENDEZ Common Visit Codes: [id number] INP/OBS CARE (HIGH) Electronically Generated By:RUFUS MELENDEZ CNP Generated Date/Time: 02/10/231940 Electronically Signed By: <Electronically signed by RUFUS MELENDEZ CNP> 02/10/231953 <Electronically signed by PIA GARLAND MD> 02/11/23 0954 Co Signed Electronically By: Co Signed Date/Time: CC: BOB MCGUIRE MD; TERESA ROMEO MD [facility] Work Phone: 1(351) 777-652908-06-2023 Discharge summary Author SHAYLA LOPEZ [facility] February 10, 2023 6:19pm Note Date/Time February 10, 2023 4:0 7pm [facility] [address] [place] [id number] HEALTH INFORMATION MANAGEMENT EMERGENCY DEPARTMENT : Signed Patient: JOHNATHAN GONZALEZ Acct:[id number] MRUN: [id number] : 1975 Sex: M Loc: ED AD M Date: 02/10/23 Room/Bed: DISC Date: History of Present Illness - General Chief complaint: Chest Pain Stated complaint: CHEST PAIN HPI: 48 yo male presents to the ED with gradual onset, moderate, constant, aching, substernal chest pain since 2:30 pm. Started shortly after drinking an energy drink. Time Seen by Provider: 02/10/23 16:01 - Related Data Home Medications Medication Instructions Recorded Confirmed Acetaminophen [Aphen] 650 mg PO Q4H PRN 02/08/22 02/08/22 Amlodipine Besylate [Norvasc] 5 mg PO DAILY 02/08/22 02/08/22 Bisacodyl [Onelax] 10 mg RC Q24H PRN 02/08/22 02/08/22 Cholecalciferol (Vitamin D3) 1 capsule PO DAILY 02/08/22 02/08/22 [D3-50] Cyclobenzaprine HCl [Flexeril 10 10 mg PO TID 02/08/22 02/08/22 mg Tablet] Duloxetine HCl [Drizalma Sprinkle] 60 mg PO DAILY 02/08/22 02/08/22 Famotidine [Pepcid AC] 10 mg PO DAILY 02/08/22 02/08/22 Levetiracetam [Keppra] 500 mg PO BID 02/08/22 02/08/22 Mag Hydrox/Al Hydrox/Simeth 30 ml PO Q6H 02/08/22 02/08/22 [Mylanta/Maalox Generic Liquid 30 ml] Magnesium Hydroxide [Milk of 30 ml PO Q24H PRN 02/08/22 02/08/22 Magnesia] Melatonin 5 mg PO QHS 02/08/22 02/08/22 Menthol [Biofreeze] 1 applic TP BID 02/08/22 02/08/22 Oxycodone HCl [Roxicodone] 5 mg PO Q12H PRN 02/08/22 02/08/22 Polyethylene Glycol 3350 [Miralax 1 applic PO DAILY 02/08/22 02/08/22 Packet 17 gm] Rivastigmine Tartrate 4.5 mg PO DAILY 02/08/22 02/08/22 [Rivastigmine] Sennosides [Angela-Sue] 2 tab PO BID 02/08/22 02/08/22 Acetaminophen [Tylenol Es 500 mg 500 mg PO Q4H tablet 02/16/22 Tablet] Cefdinir 300 mg PO Q12H 2 Days #4 capsule 02/16/22 Finasteride [Proscar 5 mg Tablet] 5 mg PO DAILY tablet 02/16/22 Furosemide [Lasix 20 mg Tablet] 20 mg PO DAILY 3 Days tablet 02/16/22 Ondansetron [Zofran 4 mg 4 mg PO Q8H PRN 30 Days #90 tablet 02/16/22 Disintegrating Tablet] Potassium Chloride [Kdur 20 Meq 20 meq PO BID 3 Days #6 tablet 02/16/22 Tablet] Tamsulosin HCl [Flomax] 0.4 mg PO DAILY 30 Days #30 capsule 02/16/22 Sulfamethoxazole/Trimethoprim 1 each PO BID #20 tablet 11/17/22 [Bactrim Ds Tablet] Sulfamethoxazole/Trimethoprim 2 each PO BID 10 Days #40 tablet 11/17/22 [Bactrim Ds Tablet] Allergies Allergy/AdvReac Type Severity Reaction Status Date / Time No Known Allergies Allergy Verified 04/26/19 04:44 Review of System - Constitutional Constitutional: Present: Well developed, Well nourished, Non-toxic - Nose,Throat,Mouth Nose (ROS): Absent: pain Throat: Absent: pain, swelling, discharge Mouth: Absent: pain, swelling - Respiratory Respiratory: Absent: cough, short of breath, wheezing - CV Cardiology: Present: chest pain. Absent: edema - GI Gastrointestinal/Abdominal: Absent: abdominal pain, diarrhea, nausea, vomiting - Genitourinary Symptoms: Absent: dysuria - Neuro Neurological: Absent: headache, weakness - Muskuloskeletal Musculoskeletal: Absent: back pain, joint pain, joint swelling - Integumentary Skin: Absent: lesions, rash - Allergic/Immunologic Immunological/Allergic: Present: no symptoms reported - Hematologic Hematologic/Lymphatic: Absent: easy bleeding, easy bruising, swollen glands - Endocrine Endocrine: Present: no symptoms reported - Psychiatric Psychiatric: Present: Normal Affect, Normal Mood. Absent: Depressed - All Others/Exceptions All Other Systems: Reviewed and Negative Except Where Noted in Documentation ED PMH/Social HX/Family HX - Respiratory Hx Respiratory Disorders: No - Cardiovascular Hx Cardiac Disorders: Yes PMH--Cardiovascular: HTN - Neurological Hx Neurological Disorder: Yes PMH--Neurological: Headaches - Endocrine Hx Endocrine Disorders: No - Gastrointestinal Hx Gastrointestinal Disorders: No - Genitourinary Hx Genitourinary Disorders: No - Musculoskeletal Hx Musculoskeletal Disorders: Yes Other MS PMH: back pain - Reproductive Hx Reproductive Disorders: No - Psychological Hx Psychosocial Problems: No PMH--Psychological & Treatments: Anxiety, Depression - HEENT Hx Ear, Nose Throat Disorders: No - Cancer Hx Cancer: No - Social History Able to Read: Yes Able to Write: Yes - Family PMH No Significant Family History Ethnicity: Pt declinded to provide - [place]/Gender ID What is your current Gender Identity? Choose all that Apply: Male Define your Sexual Orientation?: Straight/Heterosexual - [place]-Suicide Severity Rating Scale 1) Wish to be :: No 2) Suicidal Thoughts:: No 6) Suicidal Behavior Question (A): LIFETIME: No 6) Suicidal Behavior Question (B): PAST 3 MONTHS: No General Exam - General Limitations: Complains of: no limitations Constitutional: Present: Well developed, Well nourished, well hydrated, Non- toxic - Head Head exam: Present: atraumatic, normocephalic, normal inspection - Eye Eye exam: Present: normal apperance, normal accomodation, EOMI Pupils: Present: PERRL - ENT ENT exam: Present: normal orophraynx, mucous membranes moist, TMs clear w/ good light reflex, normal external ear exam, No Nasal Discharge, Posterior Pharynx Non-erethemetous - Expanded ENT Exam Ear exam: Present: normal external inspection Mouth exam: Present: normal external inspection Teeth exam: Present: normal inspection Throat exam: normal inspection - Neck Neck exam: Present: full ROM, Supple. Absent: tenderness, meningismus, Posterior Lymphadenopathy, Anterior Lymphadenopathy - Respiratory Respiratory exam: Present: lungs clear and equal bilaterally. Absent: respiratory distress, wheezes, rales, rhonchi, accessory muscle use - Cardiovascular Cardiovascular Exam: Present: regular rate, normal rhythm, normal heart sounds. Absent: murmur, rubs, gallop, clicks - GI/Abdominal GI/Abdominal exam: Present: soft, non tender, normal bowel sounds. Absent: guarding, rebound, rigid, mass, bruit - Extremities Exam Extremities exam: Present: normal inspection, full ROM, neurovascularly intact - Back Exam Back exam: Present: normal inspection, full ROM. Absent: tenderness - Neurological Exam Neurological exam: Present: alert, oriented X3, CN II-XII intact - Expanded Neurological Exam Patient oriented to: Present: person, place, time Speech: Present: fluid speech - Psychiatric Psychiatric exam: Present: normal affect, normal mood - Skin Skin Color: Present: Normal, [place] Skin exam: Present: warm, dry - Expanded Skin Exam Type of lesion: Absent: rash - Vital Signs Vital Signs 02/10/23 16:02 Temperature 98.2 F Pulse Rate [VS 97 Machine] Respiratory 18 Rate Blood Pressure 122/85 [Right Arm] Medical Desicion Making - Lab Data Result diagrams: 02/10/23 16:17 02/10/23 16:17 Lab Results 02/10/23 02/10/23 Range/Units 16:17 16:17 WBC 9.3 (3.6-10.8) K/uL RBC 4.47 (4.13-5.69) M/uL Hgb 12.9 (12.4-17.3) g/dL Hct 39.1 (36.7-50.6) % MCV 87.5 (80.0-94.0) fL MCH 28.9 (27.0-31.0) pg MCHC 33.0 (33.0-37.0) g/dL RDW 13.3 (11.5-14.5) % Plt Count 155 (148-402) K/uL MPV 9.0 (7.4-10.4) fL Neut % (Auto) 78.9 H (43.0-65.0) % Lymph % (Auto) 14.4 L (17.0-45.5) % [place] % (Auto) 4.9 L (5.5-11.7) % Eos % (Auto) 1.5 (0.9-2.9) % Baso % (Auto) 0.2 (0.2-1.0) % Abs Immat Gran (man) 0.01 (0.00-0.10) K/uL Absolute Neuts (auto) 7.33 H (2.20-4.80) K/uL Absolute Lymphs (auto) 1.30 (1.30-2.90) K/uL Absolute Monos (auto) 0.50 (0.30-0.80) K/uL Absolute Eos (auto) 0.10 (0.00-0.20) K/uL Absolute Basos (auto) 0.02 (0.00-0.10) K/uL Immature Gran % 0.10 (0.00-1.00) % Sodium 145 (132-145) mmol/L Potassium 3.6 (3.3-5.1) mmol/L Chloride 110 (94-110) mmol/L Total Carbon Dioxide 28 (21-34) mmol/L Anion Gap 10.6 (8.0-16.0) mmol/L BUN 11.4 (3.2-26.9) mg/dL Creatinine 1.06 (0.50-1.17) mg/dL Est GFR (MDRD) Af Amer > 60 (>60) Est GFR (MDRD) Non-Af > 60 (>60) BUN/Creatinine Ratio 11 (6-20) Glucose 134 H (65-100) mg/dL Calcium 8.0 L (8.2-10.0) mg/dL Magnesium 2.2 (1.3-2.3) mg/dL Total Bilirubin 0.32 (0.00-0.99) mg/dL AST 110 H (3-39) U/L ALT 85 H (13-66) U/L Alkaline Phosphatase 109 (54-112) U/L Troponin I High Sens 4 (0-76) ng/L NT-Pro-B Natriuret Pep 50 (0-125) pg/mL Total Protein 5.8 L (6.1-8.2) g/dL Albumin 2.1 L (3.4-5.0) g/dL Globulin 3.7 (1.5-4.5) g/dL Albumin/Globulin Ratio 0.6 L (1.1-2.5) Orders: Medications Discontinued Medications Famotidine (Famotidine 20 Mg Tablet) 20 mg PO STAT STA Stop: 02/10/23 16:05 Last Admin: 02/10/23 16:36 Dose: 20 mg Documented by: [email or web address] Morphine Sulfate (Morphine Sulfate 4 Mg/Ml Injection) 4 mg IVP ONE ONE Stop: 02/10/23 16:05 Last Admin: 02/10/23 16:26 Dose: 4 mg Documented by: [email or web address] Ondansetron HCl (Ondansetron Hcl/Pf 4 Mg/2 Ml Injection) 4 mg IVP STAT STA Stop: 02/10/23 16:05 Last Admin: 02/10/23 16:27 Dose: 4 mg Documented by: [email or web address] Labs 02/10/23 16:03 CHEST AP [DIAG] Stat EKG [CAR] Stat Comprehensive Metabolic Panel [CHM] Stat D-Dimer [CHM] Stat High Sensitivity Troponin I* [CHM] Stat Magnesium [CHM] Stat NT Pro-BNP [CHM] Stat PT and PTT [COA] Stat 02/10/23 16:04 12-Lead per nursing [RC] STAT Famotidine [Pepcid 20 mg Tablet] 20 mg PO STAT STA Morphine Sulfate [Morphine 4 mg/ml Injection] 4 mg IVP ONE ONE Ondansetron HCl/Pf [Zofran 4 mg/2 ml Injection] 4 mg IVP STAT STA 02/10/23 16:17 CBC w/Auto Differential [HEM] Stat 02/10/23 18:04 High Sensitivity Troponin I* [CHM] Routine - Radiology Data IMPRESSIONS Chest X-Ray 02/10/23 16:03 IMPRESSION: No acute process. Electrocardiogram 02/10/23 16:03 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 Pt is afebrile, hemodynamically stable. Pt denies fever, dizziness, diaphorsis, ab pain, dysuria, diarrhea. Pt given IV morphine,IV zofran, IV pepcid in the ED. EKG unremarkable. Labs including troponin unremarkable. CXR negative. given elevate d-dimer, CT PE done. CT PE negative. Pt reassessed and still has pain. Pt denies ever having a stress test or echo. Given continues chest pain, concern for ACS, case discussed with Dr. Garland (medicine) and pt admitted to [facility] for observation Prior external records reviewed: Outpatient records The patient has received a medical screening examination: within reasonable clinical confidence has been stabilized in the ED. Reviewed pertinent findings from resulted labs: CBC - normal CMP - normal Mg - normal Troponin - normal BNP - normal PTT/INR - normal D-dimer - 1.06 Imaging and EKG: Interpretation by radiology and independently interpreted by me. EKG shows NSR with HR 82, normal axis, normal intervals, no ST changes CXR - no acute process CT chest - no acute PE EKG interpreted by myself and discussed with patient. Full EKG read found on [employer] Presenting clinical condition necessitates admission or observation consideration: Yes Independent Hx provided by: Patient, EMS, RN Med Rx considered but ultimately not given: Steroids Dx tests considered but ultimately not ordered: CT chest Social determinant that may affects healthcare: Pharmacy closed on weekends Pt?s case/impression summarized and discussed with: Patient Likely Dx given clinical picture: Chest pain Although not an exhaustive list of Differential Diagnosis (though considered), patient?s HPI, PE, and other findings are not suggestive of: ACS, pneumonia, anxiety, GERD, pneumothorax, PE, aortic dissection Patient at the time of disposition was stable however in serious and/or critical condition from their presenting complaint thus requiring admission. The patient and/or family was given the opportunity to ask questions prior to admission, understood my verbal discussion of the plans for treatment, expected course, and the need for timely follow up as directed. Condition: Stable Disposition: Admit ED Discharge Summary - Discharge Data Clinical Impression: Chest pain Condition: Fair Disposition: ADMITTED INPATIENT Referrals: TERESA ROMEO MD [Primary Care Provider] - Home Medications: Ambulatory Orders Medication Instructions Recorded Acetaminophen [Aphen] 650 mg PO Q4H PRN 02/08/22 Amlodipine Besylate [Norvasc] 5 mg PO DAILY 02/08/22 Bisacodyl [Onelax] 10 mg RC Q24H PRN 02/08/22 Cholecalciferol (Vitamin D3) 1 capsule PO DAILY 02/08/22 [D3-50] Cyclobenzaprine HCl [Flexeril 10 10 mg PO TID 02/08/22 mg Tablet] Duloxetine HCl [Drizalma Sprinkle] 60 mg PO DAILY 02/08/22 Famotidine [Pepcid AC] 10 mg PO DAILY 02/08/22 Levetiracetam [Keppra] 500 mg PO BID 02/08/22 Mag Hydrox/Al Hydrox/Simeth 30 ml PO Q6H 02/08/22 [Mylanta/Maalox Generic Liquid 30 ml] Magnesium Hydroxide [Milk of 30 ml PO Q24H PRN 02/08/22 Magnesia] Melatonin 5 mg PO QHS 02/08/22 Menthol [Biofreeze] 1 applic TP BID 02/08/22 Oxycodone HCl [Roxicodone] 5 mg PO Q12H PRN 02/08/22 Polyethylene Glycol 3350 [Miralax 1 applic PO DAILY 02/08/22 Packet 17 gm] Rivastigmine Tartrate 4.5 mg PO DAILY 02/08/22 [Rivastigmine] Sennosides [Angela-Sue] 2 tab PO BID 02/08/22 Acetaminophen [Tylenol Es 500 mg 500 mg PO Q4H tablet 02/16/22 Tablet] Cefdinir 300 mg PO Q12H 2 Days #4 capsule 02/16/22 Finasteride [Proscar 5 mg Tablet] 5 mg PO DAILY tablet 02/16/22 Furosemide [Lasix 20 mg Tablet] 20 mg PO DAILY 3 Days tablet 02/16/22 Ondansetron [Zofran 4 mg 4 mg PO Q8H PRN 30 Days #90 tablet 02/16/22 Disintegrating Tablet] Potassium Chloride [Kdur 20 Meq 20 meq PO BID 3 Days #6 tablet 02/16/22 Tablet] Tamsulosin HCl [Flomax] 0.4 mg PO DAILY 30 Days #30 capsule 02/16/22 Sulfamethoxazole/Trimethoprim 1 each PO BID #20 tablet 11/17/22 [Bactrim Ds Tablet] Sulfamethoxazole/Trimethoprim 2 each PO BID 10 Days #40 tablet 11/17/22 [Bactrim Ds Tablet] Time Seen by Provider: 02/10/23 16:01 Electronically Generated By:SHAYLA LOPEZ MD Generated Date/Time: 02/10/23 1604 Electronically Signed By: <Electronically signed by SHAYLA LOPEZ MD> 02/10/23 1819 Co Signed Electronically By: Co Signed Date/Time: CC: TERESA ROMEO MD [facility] Work Phone: [phone]) 944-199008-12-2022 Discharge summary Author YAW COLORADO [facility] February 16, 2022 4:20pm Note Date/Time February 16, 2022 4: 20pm [facility] [address] [place] [id number] HEALTH INFORMATION MANAGEMENT DISCHARGE SUMMARY : [id number] Signed Patient: JOHNATHAN GONZALEZ Acct:[id number] MRUN: [id number] : 1975 Sex: M Loc: ICU AD M Date: 02/08/22 Room/Bed: 355-A DISC Date: - Hospital Course Events Since Admission: JOHNATHAN GONZALEZ was admitted to MEDICAL SURGICAL service into room 355 on 02/08/22 at 14:31 from for complaints of RECTAL INFLAMMATION PNEUMONIA DYSPENA ABD PAIN. Laboratory and diagnostic testing has been reviewed. The patient wasseen, evaluated and found to be appropriate for discharge. Reason For Visit: RECTAL INFLAMMATION PNEUMONIA DYSPENA ABD PAIN Hospital Treatment: 02/16/22 05:27 02/16/22 05:27 Laboratory Results - last 24 hr 02/16/22 05:27: WBC 8.2, RBC 4.34, Hgb 12.9, Hct 40.1, MCV 92.4, MCH 29.7, MCHC 32.2 L, RDW 13.8, Plt Count 255, MPV 8.8, Neut % (Auto) 63.1, Lymph % (Auto) 22.9, [place] % (Auto) 8.7, Eos % (Auto) 3.8 H, Baso % (Auto) 0.4, Abs Immat Gran (man) 0.09, Absolute Neuts (auto) 5.17 H, Absolute Lymphs (auto) 1.90, Absolute Monos (auto) 0.70, Absolute Eos (auto) 0.30 H, Absolute Basos (auto) 0.03, Immature Gran % 1.10 H 02/16/22 05:27: Sodium 140, Potassium 3.9, Chloride 103, Total Carbon Dioxide 31, Anion Gap 9.9, BUN 9.8, Creatinine 1.12, Est GFR (MDRD) Af Amer > 60, Est GFR (MDRD) Non-Af > 60, BUN/Creatinine Ratio 9, Glucose 109 H, Calcium 9.3 Intake & Output 02/13/22 02/14/22 02/15/22 02/16/22 23:59 23:59 23:59 23:59 Intake Total 790 890 650 270 Output Total 5267 3915 1585 1050 Balance -4477 -3025 -935 -780 Weight 226 lb 214 lb 9.6 oz 215 lb See radiology reports in electronic medical record. - Discharge Information Discharge Diagnosis:: Sepsis with gangrenous cholecystitis Disposition: 03 RESIDENTIAL FACILITY Condition: Fair Plan of Treatment: Discharge diagnosis Gangrenous cholecystitis and severe sepsis Status post laparoscopic cholecystectomy converted to open cholecystectomy Acute hypoxic hypercapnic respiratory failure Community-acquired pneumonia with bronchitis Proctitis Constipation History of CVA with left-sided flaccid paralysis History of craniectomy in 2019 History of BPH History of CKD stage II This is a 47-year-old male residing at [facility] presented on 02/08/2022 with complaints of generalized abdominal pain with associated nausea.. He also reported constipation over the last 2 days. In the emergency department his initial white count was 19 with a lactic acidosis of 2.4. CT of the abdomen and pelvis demonstrated distal rectal thickening and a hydropic gallbladder. Bilateral lower lobe infiltrates suspicious of atelectasis versus infiltrate. Patient was started on coverage with Zosyn and Flagyl. General surgery was consulted. Patient reported associated nasal congestion cough and shortness of breath. Clinically he had tenderness to palpation of the right upper quadrant. Ultrasound of the right upper quadrant was consistent with gallbladder distention and cholelithiasis. He was admitted for severe sepsis secondary to acute cholecystitis and newly acquired bibasilar bacterial pneumonia with bronchitis, organism undefined. Patient underwent a laparoscopic cholecystectomy with cholangiogram on 02/09/2022. Cholangiogram was clear or defect. Right upper quadrant bed is notable for purulent fluid without exudate present in the right colic fossa. There was evidence of transmural necrosis and gangrene. He required a wound VAC postoperatively. He completed 8 days of Zosyn. He tolerated a diet. Wound VACwas removed by surgery and incision was well approximated, clean and dry at the time of discharge. During the course of his hospitalization he was continued on IV fluids and as needed diuretics for noncardiogenic pulmonary edema. He developed acute hypoxicrespiratory failure requiring high flow nasal cannula. he was diuresed adequately to room air with some hypoxemia noted when laying flat. Oxygen requirement improved. CTA of the chest was performed due to high oxygen requirements. No mediastinal lymphadenopathy was noted. Interpretation consistent with mid and lower lung interstitial edema pattern with atelectasis and small bilateral pleural effusions. Patient maintained good diuresis of greater than 3L with 20 mg of IV Lasix he was weaned down to 2 L of quickly. Anticipate resolution on discharge. Recommendations: Continue cefdinir 300 mg twice daily for the next 2 days Continue 20 mg of Lasix daily for 3 days Continue K-Dur 20 mEq twice daily for the next 3 days Discontinue citalopram Zofran for nausea. Follow-up with general surgery for assessment of proctitis Continue incentive spirometer on discharge. - Discharge Instructions Referrals: BORA LONG MD [MEDICAL DOCTOR] - 2 Week -Call to Schedule (post hospital follow up) TERESA ROMEO MD [Primary Care Provider] - Prescriptions & home med reconciliation (Convert): Tamsulosin HCl [Flomax] 0.4 mg PO DAILY 30 Days #30 capsule Furosemide [Lasix 20 mg Tablet] 20 mg PO DAILY 3 Days tablet Cefdinir 300 mg PO Q12H 2 Days #4 capsule Potassium Chloride [Kdur 20 Meq Tablet] 20 meq PO BID 3 Days #6 tablet Ondansetron [Zofran 4 mg Disintegrating Tablet] 4 mg PO Q8H PRN 30 Days #90 tablet PRN Reason: Nausea / Vomiting Activity Level For Discharge:: As Tolerated Discharge Diet: Regular, As per instruction sheet. (increase oral hydration) Electronically Generated By:YAW COLORADO MD Generated Date/Time: 02/16/221618 Electronically Signed By: YAW COLORADO MD Signed Date/Time 02/16/221619 Co Signed Electronically By: Co Signed Date/Time: CC: BORA LONG MD; TERESA ROMEO MD [facility] Work Phone: 1(259) 271-318408-12-2022 Progress note Author PIA GARLAND [facility] February 15, 2022 11:54pm Note Date/Time February 15, 2022 10 :44pm [facility] [address] [place] [address] HEALTH INFORMATION MANAGEMENT PROGRESS NOTE : [id number] Signed Patient: JOHNATHAN GONZALEZ Acct:[id number] MRUN: [id number] : 1975 Sex: M Loc: ICU AD M Date: 02/08/22 Room/Bed: 355-A DISC Date: Subjective Assessment Date Of Service: 02/15/22 Events Since Admission: JOHNATHAN GONZALEZ was admitted to MEDICAL SURGICAL service into room 355 on 08/04/22 at 14:31 for complaints of RECTAL INFLAMMATION PNEUMONIA DYSPENA ABD PAIN. The patient's laboratory testing and diagnostic testing has been reviewed. Subjective Note: no overnight acute evnts i/o past 24 hours -3025 patients seen today, denies chest pain, palptiatinos, sob with mild leg swelling o2 was weaned off to 2L NC had nausea earlier +bm General: Confirms: Weakness, Fatigue. Denies: Fever, Chills, Sweats, Weight Gain, Weight Loss, Other ENT: Denies: Earache, Ear Discharge, Decreased Hearing, Tinnitus, Nose Congestion, Nose Drainage, Nasal Ulcers, Epitaxis, Sore Throat, Throat Swelling,Hoarseness, Loss Of Voice, Tongue Pain, Tongue Swelling, Lip Swelling, Dental Pain, Cervical, Other Respiratory: Denies: Cough, Shortness of Breath, Wheezing, Sputum Production, Hemoptysis, Dyspnea on Exertion, Pleuritic Pain, Other Cardiovascular: Confirms: Edema. Denies: Chest Pain-Sharp, Chest Pain-Heavy, Orthopnea, Short of Breath, Dyspnea on Exertion, Paroxysmal Noc. Dyspnea, Palpitations, Light Headedness, Syncope, Diaphoresis, Claudication, Edema, Other Gastrointestinal: Confirms: Abdominal Pain. Denies: Nausea, Vomiting, Diarrhea,Constipation, Melena, Hematochezia, Other Genitourinary: Denies: Dysuria, Frequency, Incontinence, Hematuria, Retention, Other Musculoskeletal: Denies: Neck Pain, Shoulder Pain, Arm Pain, Back Pain, Hand Pain, Leg Pain, Foot Pain, Other Neurological: Confirms: Weakness, Numbness. Denies: Incoordination, Change in Speech, Confusion, Seizures, Other Objective Findings General: Yes: Alert, Cooperative/Pleasant, No acute distress HEENT: Yes: Atraumatic, PERRLA, Mucous membr. moist/pink, EOMI. No: Vision Impaired, Hearing Impaired Neck: Yes: Supple. No: JVD Lungs: Yes: Clear to auscultation, Normal air movement, Unlabored. No: Exibits Shortness of [place], Pursed Lip Breathing, Use of Accessory Muscles, Retracting Cardiovascular: Yes: Regular rate, Normal S2, Normal S1, No murmurs, Window Draper Rhythm (Sinus Rhythm). No: Gallops, Rubs, Ectopy Abdomen: Yes: Bowel Sounds X4, Soft, No Tenderness, Flatus. No: Hepatospenomegaly, Masses, Nausea/Vomiting, Emesis Present, Constipation, Diarrhea Genitourinary/Rectal: Yes: Deferred-Not Relevant Extremities: Yes: No tenderness/swelling, Bilateral Leg Edema, Normal pulses. No: Clubbing, Cyanosis, Mottling noted Skin: No: Rashes, Skin Breakdown, Significant lesions, Open Wound Present Neurological: Yes: Speech Clear, Cranial nerves 3-12 NL, Reflexes 2+. No: Strength Normal X4 ext, Sensation intact Psych/Mental Status: Yes: Mental status NL, Mood Appropriate. No: Hallucinations Vitals and I&O: Vital Signs Temperature 97.9 F 02/15/22 20:06 Pulse Rate 88 02/15/22 22:31 Respiratory Rate 20 02/15/22 21:00 Blood Pressure 132/91 H 02/15/22 20:06 O2 Sat by Pulse Oximetry(%) 93 02/15/22 22:31 FiO2 - Manual Entry 60 02/09/22 23:40 Intake & Output 02/14/22 02/15/22 02/15/22 23:59 11:59 23:59 Intake Total 220 300 350 Output Total 2300 260 1325 Balance -2080 40 -975 Intake: IV Intake 100 100 50 Zosyn 3.375 gm Injection 100 100 50 3.375 gm In Sodium Chloride 0.9 % 50 ml 50 ml @ 100 mls/hr IVPB Q6H [facility] Rx#:[id number] Intake ml 120 200 300 Output: Output ml 9720 742 1836 tanner 8013 397 4467 Output, Urine Amount 825 Other: Oral Intake Size Oral Small Output stool Nonnumeric/ Comment Stool extra large extra large loose Laboratory-Last 48 hrs: 02/15/22 05:28 02/15/22 05:28 Laboratory Results-last 24 hrs 02/14/22 06:05: Anion Gap 7.3 L, Glucose 107 H 02/14/22 06:05: RBC 3.89 L, Hgb 11.6 L, Hct 35.2 L, Neut % (Auto) 79.2 H, Lymph % (Auto) 9.9 L, Absolute Neuts (auto) 7.39 H, Absolute Lymphs (auto) 0.90 L 02/15/22 05:28: Glucose 101 H, Phosphorus 2.0 L 02/15/22 05:28: Hgb 12.2 L, MCHC 32.4 L, Neut % (Auto) 71.8 H, Absolute Neuts (auto) 6.85 H, Absolute Eos (auto) 0.30 H Radiology-Impressions: See radiology reports in electronic medical record. Plan/Treatment Current Plan: Transfer Of care to Plan: assessment severe sepsis lactic acidosis, resolved gangrenous cholecysitis s/p laparoscopic coverted to open cholecystectomy with cholangiogram 02/09/22, s/p wound closure and wound vac removal 02/13/22 hyperbilirubinemia acute hypoxic hypercapnic respiratory failure requiring bipap CAP and bronchitis covid ruled out pulmomary edema with bilateral pleural effusions likely secondary to fluid resuscitation rectal inflammation/infection acute on chronic constipation history of stroke/craniectomy [address] 2 seizure d/o depression/anxiety BPH obesity plan pain control, antiemetics surgery following responds with lasix weaned off to 2L recommend to dose lasix prn starting tomorrow iincentive spirometer continue piperacillin tazobactam. s/p azith course follow liver enzymes, renal fxn trend, i/os, daily wts continue home keppra, amlodipine home donepezil, duloxetine, citalopram, flexeril, finasteride, tamsulosin iv famotidine for gi prophy sq enoxaparin for dvt prophy New Orders: New Orders-Lab 02/16/22 04:00 Basic Metabolic Panel [CHM] DAILY@0400 CBC w/Auto Differential [HEM] DAILY@0400 02/17/22 04:00 Basic Metabolic Panel [CHM] DAILY@0400 CBC w/Auto Differential [HEM] DAILY@0400 Electronically Generated By:PIA GARLAND MD Generated Date/Time: 02/15/22 2244 Electronically Signed By: PIA GARLAND MD Signed Date/Time 02/15/22 0324 Co Signed Electronically By: Co Signed Date/Time: CC: [facility] Work Phone: [phone]) 391-968508-10-2022 Progress note Author PIA GARLAND [facility] February 14, 2022 7:02pm Note Date/Time February 14, 2022 6: 56pm [facility] [address] [place] [id number] HEALTH INFORMATION MANAGEMENT PROGRESS NOTE : [id number] Signed Patient: JOHNATHAN GONZALEZ Acct:[id number] MRUN: [id number] : 1975 Sex: M Loc: ICU AD M Date: 02/08/22 Room/Bed: 355-A DISC Date: Subjective Assessment Date Of Service: 02/14/22 Events Since Admission: JOHNATHAN GONZALEZ was admitted to INTENSIVE CARE UNIT service into room 355 on 02/08/22 at 14:31 for complaints of RECTAL INFLAMMATION PNEUMONIA DYSPENA ABD PAIN. The patient's laboratory testing and diagnostic testing has been reviewed. Subjective Note: Overnight, patient was back to 12 L nasal cannula He was given Lasix yesterday. I/O- 4477 wound vac removed, wound closed Patient seen today, awake. tolerating food denies chest pain, palpiations. with chronic leg swelling. denies chest pain General: Confirms: Fatigue. Denies: Fever, Chills, Sweats, Weakness, Weight Gain, Weight Loss, Other ENT: Denies: Earache, Ear Discharge, Decreased Hearing, Tinnitus, Nose Congestion, Nose Drainage, Nasal Ulcers, Epitaxis, Sore Throat, Throat Swelling,Hoarseness, Loss Of Voice, Tongue Pain, Tongue Swelling, Lip Swelling, Dental Pain, Cervical, Other Respiratory: Confirms: Cough, Shortness of Breath, Dyspnea on Exertion. Denies:Wheezing, Sputum Production, Hemoptysis, Pleuritic Pain, Other Cardiovascular: Confirms: Short of Breath, Dyspnea on Exertion, Edema. Denies: Chest Pain-Sharp, Chest Pain-Heavy, Orthopnea, Paroxysmal Noc. Dyspnea, Palpitations, Light Headedness, Syncope, Diaphoresis, Claudication, Edema, Other Gastrointestinal: Denies: Nausea, Vomiting, Abdominal Pain, Diarrhea, Constipation, Melena, Hematochezia, Other Genitourinary: Denies: Dysuria, Frequency, Incontinence, Hematuria, Retention, Other Musculoskeletal: Denies: Neck Pain, Shoulder Pain, Arm Pain, Back Pain, Hand Pain, Leg Pain, Foot Pain, Other Neurological: Denies: Weakness, Numbness, Incoordination, Change in Speech, Confusion, Seizures, Other Objective Findings General: Yes: Alert, Cooperative/Pleasant, No acute distress HEENT: Yes: Atraumatic, PERRLA, Mucous membr. moist/pink, EOMI. No: Vision Impaired, Hearing Impaired Neck: Yes: Supple. No: JVD Lungs: Yes: Unlabored, Diminished. No: Exibits Shortness of [place], Pursed Lip Breathing, Use of Accessory Muscles, Retracting Cardiovascular: Yes: Regular rate, Normal S2, Normal S1, No murmurs, Window Draper Rhythm (Sinus Rhythm). No: Gallops, Rubs, Ectopy Abdomen: Yes: Bowel Sounds X4, Soft, No Tenderness, Flatus. No: Hepatospenomegaly, Masses, Nausea/Vomiting, Emesis Present, Constipation, Diarrhea Genitourinary/Rectal: Yes: Deferred-Not Relevant Extremities: Yes: Normal pulses. No: Clubbing, Cyanosis, Edema, No tenderness/swelling, Mottling noted Skin: No: Rashes, Skin Breakdown, Significant lesions, Open Wound Present Neurological: Yes: Speech Clear, Normal tone, Sensation intact Psych/Mental Status: Yes: Mental status NL, Mood Appropriate. No: Hallucinations Vitals and I&O: Vital Signs Temperature 97.3 F 02/14/22 16:00 Pulse Rate 83 02/14/22 16:20 Respiratory Rate 20 02/14/22 16:20 Blood Pressure 110/89 02/14/22 17:00 O2 Sat by Pulse Oximetry(%) 95 02/14/22 16:00 FiO2 - Manual Entry 60 02/09/22 23:40 Intake & Output 02/13/22 02/14/22 02/14/22 23:59 11:59 23:59 Intake Total 300 670 170 Output Total 5581 1623 450 Balance -3160 -945 -280 Weight 214 lb 9.6 oz Intake: IV Intake 300 350 50 Sodium Chloride 0.9 % 100 200 ml 100 ml In Sodium Chloride 0.9 % 100 ml 100 ml @ 4 mls/sec IVPB STAT [facility] Rx#:[id number] Zithromax 500 mg 250 Injection 500 mg In Sodium Chloride 0.9 % 250 ml 250 ml @ 250 mls/hr IVPB Q24H [facility] Rx#: [id number] Zosyn 3.375 gm Injection 100 100 50 3.375 gm In Sodium Chloride 0.9 % 50 ml 50 ml @ 100 mls/hr IVPB Q6H [facility] Rx#:[id number] Intake ml 320 120 Oral 200 Output: Output ml 3460 1615 450 Stool 0 tanner 3460 1615 450 Other: Output Urine Nonnumeric/ Comment Stool extra large soft bro Laboratory-Last 48 hrs: 02/14/22 06:05 02/14/22 06:05 Laboratory Results-last 24 hrs 02/13/22 05:54: Potassium 3.1 L 02/13/22 05:54: RBC 3.83 L, Hgb 11.4 L, Hct 35.4 L, MCHC 32.2 L, Neut % (Auto) 70.8 H, Absolute Neuts (auto) 4.93 H 02/13/22 05:54: AST 61 H, ALT 154 H, Alkaline Phosphatase 176 H, Total Protein 5.6 L, Albumin 1.8 L, Albumin/Globulin Ratio 0.5 L 02/14/22 06:05: Anion Gap 7.3 L, Glucose 107 H 02/14/22 06:05: RBC 3.89 L, Hgb 11.6 L, Hct 35.2 L, Neut % (Auto) 79.2 H, Lymph % (Auto) 9.9 L, Absolute Neuts (auto) 7.39 H, Absolute Lymphs (auto) 0.90 L Radiology-Impressions: See radiology reports in electronic medical record. Plan/Treatment Plan: assessment severe sepsis lactic acidosis, resolved gangrenous cholecysitis s/p laparoscopic coverted to open cholecystectomy with cholangiogram 02/09/22, s/p wound closure and wound vac removal 02/13/22 hyperbilirubinemia acute hypoxic hypercapnic respiratory failure requiring bipap CAP and bronchitis covid ruled out pulmomary edema with bilateral pleural effusions likely secondary to fluid resuscitation rectal inflammation/infection acute on chronic constipation history of stroke/craniectomy [address] 2 seizure d/o depression/anxiety BPH obesity plan pain control, antiemetics wound vac remoevd, sutured surgery following soft diet back to high flow o2 overnight. continue to wean. wean down to NC 4L give another odse of lasix incentive spirometer f/u blood cultures - negative. f/up OR culture - negative. covid ruled out continue piperacillin tazobactam. s/p azith course follow liver enzymes, renal fxn trend, i/os, daily wts continue home keppra, amlodipine home donepezil, duloxetine, citalopram, flexeril, finasteride, tamsulosin iv famotidine for gi prophy sq enoxaparin for dvt prophy med surg status New Orders: New Orders-Lab 02/15/22 04:00 Basic Metabolic Panel [CHM] DAILY@0400 CBC w/Auto Differential [HEM] DAILY@0400 Magnesium [CHM] Routine Phosphorus [CHM] Routine 02/16/22 04:00 Basic Metabolic Panel [CHM] DAILY@0400 CBC w/Auto Differential [HEM] DAILY@0400 02/17/22 04:00 Basic Metabolic Panel [CHM] DAILY@0400 CBC w/Auto Differential [HEM] DAILY@0400 Medications 02/14/22 18:48 Morphine Sulfate [Morphine Sulfate 4 mg/ml Vial] 4 mg IVP Q4H PRN 02/14/22 18:49 Oxycodone Ir HCl [Oxy Ir 5 mg Tablet] 5 mg PO Q6H PRN 02/14/22 20:00 Furosemide [Lasix 20 mg/2 ml Injection] 20 mg IVP ONE ONE Electronically Generated By:PIA GARLAND MD Generated Date/Time: 02/14/22 1849 Electronically Signed By: PIA GARLAND MD Signed Date/Time 02/14/22 1902 Co Signed Electronically By: Co Signed Date/Time: CC: [facility] Work Phone: 1(219) 559-380608-10-2022 Progress note Author BORA LONG [facility] February 13, 2022 11:40pm Note Date/Time February 13, 2022 11: 40pm [facility] [address] [place], [place] [id number] HEALTH INFORMATION MANAGEMENT PHYSICIAN NOTE : [phone] Signed Patient: JOHNATHAN GONZALEZ Acct:[id number] MRUN: [id number] : 1975 Sex: M Loc: ICU AD M Date: 02/08/22 Room/Bed: 355-A DISC Date: PHYSICIAN NOTE - PHYSICIAN NOTE PHYSICIAN NOTE: tolerating diet. CT with atelectasis. The 15 cm wound was closed in a two layer fashion with deep dermal 3-0 Vicryl and a runnign 4-0 Monocryl. The JVac was removed. Electronically Generated By:BORA LONG MD Generated Date/Time: 02/13/22 2338 Electronically Signed By: BORA LONG MD Signed Date/Time 02/13/22 2340 Co Signed Electronically By: Co Signed Date/Time: CC: [facility] Work Phone: [phone]) [phone] Progress note Author PIA GARLAND [facility] February 13, 2022 5:35pm Note Date/Time February 13, 2022 5:2 9pm [facility] [address] [place] [id number] HEALTH INFORMATION MANAGEMENT PROGRESS NOTE : [phone] Signed Patient: JOHNATHAN GONZALEZ Acct:[id number] MRUN: [id number] : 1975 Sex: M Loc: ICU AD M Date: 02/08/22 Room/Bed: 355-A DISC Date: Subjective Assessment Date Of Service: 02/13/22 Events Since Admission: JOHNATHAN GONZALEZ was admitted to [facility] service into room 355 on 02/08/22 at 14:31 for complaints of RECTAL INFLAMMATION PNEUMONIA DYSPENA ABD PAIN. The patient's laboratory testing and diagnostic testing has been reviewed. Subjective Note: last night, was again up to high flow NC 12 L patient seen today, denies cough, sputum production. was laying relatively flat.mild leg swelling reports abdominal pain. no n/v. so far tolerating diet. awaiting bm denies chest pain, palpitations. no fever, chills cta chest oredered - no pe, will likely instersitial, bilaterl effusions, airpsace disase vs atelectasis General: Confirms: Fatigue. Denies: Fever, Chills, Sweats, Weakness, Weight Gain, Weight Loss, Other ENT: Denies: Earache, Ear Discharge, Decreased Hearing, Tinnitus, Nose Congestion, Nose Drainage, Nasal Ulcers, Epitaxis, Sore Throat, Throat Swelling,Hoarseness, Loss Of Voice, Tongue Pain, Tongue Swelling, Lip Swelling, Dental Pain, Cervical, Other Respiratory: Confirms: Cough, Shortness of Breath, Dyspnea on Exertion. Denies:Wheezing, Sputum Production, Hemoptysis, Pleuritic Pain, Other Cardiovascular: Confirms: Short of Breath, Dyspnea on Exertion. Denies: Chest Pain-Sharp, Chest Pain-Heavy, Orthopnea, Paroxysmal Noc. Dyspnea, Edema, Palpitations, Light Headedness, Syncope, Diaphoresis, Claudication, Edema, Other Gastrointestinal: Confirms: Abdominal Pain. Denies: Nausea, Vomiting, Diarrhea,Constipation, Melena, Hematochezia, Other Genitourinary: Denies: Dysuria, Frequency, Incontinence, Hematuria, Retention, Other Musculoskeletal: Denies: Neck Pain, Shoulder Pain, Arm Pain, Back Pain, Hand Pain, Leg Pain, Foot Pain, Other Neurological: Confirms: Weakness, Numbness. Denies: Incoordination, Change in Speech, Confusion, Seizures, Other Objective Findings General: Yes: Alert, Cooperative/Pleasant, No acute distress HEENT: Yes: Atraumatic, PERRLA. No: Vision Impaired, Hearing Impaired Neck: Yes: Supple, +2 carotid pulse wo bruit. No: JVD, Thyromegaly Lungs: Yes: Clear to auscultation, Normal air movement, Unlabored. No: Exibits Shortness of [place], Pursed Lip Breathing, Use of Accessory Muscles, Retracting Cardiovascular: Yes: Regular rate, Normal S2, Normal S1, No murmurs, Window Draper Rhythm (Sinus Rhythm). No: Gallops, Rubs, Ectopy Abdomen: Yes: Bowel Sounds X4, Soft, Tenderness Noted, Flatus, Other (andre drain in place. wound vac in place ). No: Hepatospenomegaly, Masses, Nausea/Vomiting,Emesis Present, Constipation, Diarrhea Genitourinary/Rectal: Yes: Deferred-Not Relevant Extremities: Yes: Normal pulses. No: Clubbing, Cyanosis, Edema, No tenderness/swelling, Mottling noted Skin: No: Rashes, Skin Breakdown, Significant lesions, Open Wound Present Neurological: Yes: Speech Clear, Normal tone, Sensation intact, Cognitive Ability Intact Psych/Mental Status: Yes: Mental status NL, Mood Appropriate. No: Hallucinations Vitals and I&O: Vital Signs Temperature 97.1 F 02/13/22 16:00 Pulse Rate 86 02/13/22 16:02 Respiratory Rate 19 02/13/22 16:02 Blood Pressure 119/85 02/13/22 16:00 O2 Sat by Pulse Oximetry(%) 96 02/13/22 16:00 FiO2 - Manual Entry 60 02/09/22 23:40 Intake & Output 02/12/22 02/13/22 02/13/22 23:59 11:59 23:59 Intake Total 1051 490 200 Output Total 1623 1807 1450 Balance -572 1317 -1250 Weight 226 lb Intake: IV Intake 331 350 200 Sodium Chloride 0.9 % 100 200 ml 100 ml In Sodium Chloride 0.9 % 100 ml 100 ml @ 4 mls/sec IVPB STAT [facility] Rx#:[id number] Sodium Chloride 0.9 % 231 1000 ml 1,000 ml @ 80 mls /hr IV .[id number] PRN Rx#: [id number] Zithromax 500 mg 250 Injection 500 mg In Sodium Chloride 0.9 % 250 ml 250 ml @ 250 mls/hr IVPB Q24H [facility] Rx#: [id number] Zosyn 3.375 gm Injection 100 100 3.375 gm In Sodium Chloride 0.9 % 50 ml 50 ml @ 100 mls/hr IVPB Q6H [facility] Rx#:[id number] Intake ml 720 140 Oral 240 140 Output: Output ml 1623 1772 1450 ANDRE drain to Rt abd 48 72 tanner 1575 1700 1450 Output, Drainage Amount 35 Right lateral abdomen 35 Other: Output Urine Nonnumeric/ Comment Stool extra large soft bro tanner CL YELLOW Laboratory-Last 48 hrs: 02/13/22 05:54 02/13/22 05:54 Laboratory Results-last 24 hrs 02/12/22 05:59: Phosphorus 1.6 L 02/12/22 05:59: RBC 3.63 L, Hgb 10.8 L, Hct 34.5 L, MCV 95.0 H, MCHC 31.3 L, Neut % (Auto) 68.0 H, Eos % (Auto) 3.0 H 02/12/22 05:59: NT-Pro-B Natriuret Pep 821 H 02/13/22 05:54: Potassium 3.1 L 02/13/22 05:54: RBC 3.83 L, Hgb 11.4 L, Hct 35.4 L, MCHC 32.2 L, Neut % (Auto) 70.8 H, Absolute Neuts (auto) 4.93 H 02/13/22 05:54: AST 61 H, ALT 154 H, Alkaline Phosphatase 176 H, Total Protein 5.6 L, Albumin 1.8 L, Albumin/Globulin Ratio 0.5 L Radiology-Impressions: See radiology reports in electronic medical record. Plan/Treatment Plan: assessment severe sepsis lactic acidosis, resolved gangrenous cholecysitis s/p laparoscopic coverted to open cholecystectomy with cholangiogram 02/09/22 hyperbilirubinemia acute hypoxic hypercapnic respiratory failure requiring bipap CAP and bronchitis covid ruled out pulmomary edema with bilateral pleural effusions likely secondary to fluid resuscitation rectal inflammation/infection acute on chronic constipation history of stroke/craniectomy [address] 2 seizure d/o depression/anxiety BPH obesity plan pain control, antiemetics wound vac in place, ander drain in place plan on wound closure tomorrow surgery following, soft diet back to high flow o2, remains ill. continue to wean cta no pe. with insterstitial edema mixed with airspace disease vs atelectasis dc fluids. trial lasix incentive spirometer f/u blood cultures. unable to provide sputum cultures. f/up OR culture - negative. covid ruled out continue piperacillin tazobactam, azith follow liver enzymes, renal fxn trend, i/os, daily wts continue home keppra, amlodipine home donepezil, duloxetine, citalopram, flexeril, finasteride, tamsulosin iv famotidine for gi prophy sq enoxaparin for dvt prophy cct 33 min New Orders: New Orders-Lab 02/14/22 04:00 Basic Metabolic Panel [CHM] DAILY@0400 CBC w/Auto Differential [HEM] DAILY@0400 New Orders-Radiology 02/13/22 11:41 CTA CHEST W [CT] Urgent New Orders-Nursing Care 02/13/22 17:00 regular diet [DIET] Medications 02/13/22 18:00 Furosemide [Lasix 20 mg/2 ml Injection] 20 mg IVP ONE ONE 02/14/22 09:00 Furosemide [Lasix 20 mg/2 ml Injection] 20 mg IVP ONE ONE Electronically Generated By:PIA GARLAND MD Generated Date/Time: 02/13/22 1727 Electronically Signed By: PIA GARLAND MD Signed Date/Time 02/13/22 173 Co Signed Electronically By: Rubens Signed Date/Time: CC: [facility] Work Phone: [phone]) 623-390208-08-2022 Progress note Author PIA GARLAND [facility] February 12, 2022 6:48pm Note Date/Time February 12, 2022 6:4 6pm [facility] [address] [place] [address] HEALTH INFORMATION MANAGEMENT PROGRESS NOTE : [phone] Signed Patient: JOHNATHAN GONZALEZ Acct:[id number] MRUN: [id number] : 1975 Sex: M Loc: ICU AD M Date: 02/08/22 Room/Bed: 355-A DISC Date: Subjective Assessment Date Of Service: 02/12/22 Events Since Admission: JOHNATHNA GONZALEZ was admitted to [facility] service into room 355 on 02/08/22 at 14:31 for complaints of RECTAL INFLAMMATION PNEUMONIA DYSPENA ABD PAIN. The patient's laboratory testing and diagnostic testing has been reviewed. Subjective Note: no overnight acute events. Patient seen today, nasal cannula 12 L, this was weaned off throughout the day Patient reports abdominal pain. No nausea or vomiting No chest pain, palpitations Some shortness of breath and cough General: Confirms: Fatigue. Denies: Fever, Chills, Sweats, Weakness, Weight Gain, Weight Loss, Other ENT: Denies: Earache, Ear Discharge, Decreased Hearing, Tinnitus, Nose Congestion, Nose Drainage, Nasal Ulcers, Epitaxis, Sore Throat, Throat Swelling,Hoarseness, Loss Of Voice, Tongue Pain, Tongue Swelling, Lip Swelling, Dental Pain, Cervical, Other Respiratory: Confirms: Cough, Shortness of Breath. Denies: Wheezing, Sputum Production, Hemoptysis, Dyspnea on Exertion, Pleuritic Pain, Other Cardiovascular: Denies: Chest Pain-Sharp, Chest Pain-Heavy, Orthopnea, Short of Breath, Dyspnea on Exertion, Paroxysmal Noc. Dyspnea, Edema, Palpitations, LightHeadedness, Syncope, Diaphoresis, Claudication, Edema, Other Gastrointestinal: Confirms: Abdominal Pain. Denies: Nausea, Vomiting, Diarrhea,Constipation, Melena, Hematochezia, Other Genitourinary: Denies: Dysuria, Frequency, Incontinence, Hematuria, Retention, Other Musculoskeletal: Denies: Neck Pain, Shoulder Pain, Arm Pain, Back Pain, Hand Pain, Leg Pain, Foot Pain, Other Neurological: Denies: Weakness, Numbness, Incoordination, Change in Speech, Confusion, Seizures, Other Objective Findings General: Yes: Alert, Oriented (X3), Cooperative/Pleasant, No acute distress HEENT: Yes: Atraumatic, PERRLA, Mucous membr. moist/pink, EOMI. No: Vision Impaired, Hearing Impaired Neck: Yes: Supple. No: JVD Lungs: Yes: Labored, Rales, Diminished, Exibits Shortness of [place], Use of Accessory Muscles. No: Pursed Lip Breathing, Retracting Cardiovascular: Yes: Regular rate, Normal S2, Normal S1, No murmurs, Window Draper Rhythm (Sinus Rhythm). No: Gallops, Rubs, Ectopy Abdomen: Yes: Bowel Sounds X4, Soft, No Tenderness, Flatus. No: Hepatospenomegaly, Masses, Nausea/Vomiting, Emesis Present, Constipation, Diarrhea Genitourinary/Rectal: Yes: Deferred-Not Relevant Extremities: Yes: Normal pulses. No: Clubbing, Cyanosis, Edema, No tenderness/swelling, Mottling noted Skin: No: Rashes, Skin Breakdown, Significant lesions, Open Wound Present Neurological: Yes: Speech Clear, Cognitive Ability Intact Psych/Mental Status: Yes: Mental status NL, Mood Appropriate. No: Hallucinations Vitals and I&O: Vital Signs Temperature 97.5 F 02/12/22 15:40 Pulse Rate 98 02/12/22 16:00 Respiratory Rate 18 02/12/22 15:46 Blood Pressure 126/76 02/12/22 17:00 O2 Sat by Pulse Oximetry(%) 92 L 02/12/22 17:00 FiO2 - Manual Entry 60 02/09/22 23:40 Intake & Output 02/11/22 02/12/22 02/12/22 23:59 11:59 23:59 Intake Total 1270 540 530 Output Total 079 117 4382 Balance 525 100 -678 Weight 223 lb 8 oz Intake: IV Intake 1150 300 50 Sodium Chloride 0.9 % 1000 1000 ml 1,000 ml @ 100 mls/hr IV .Q10H PRN Rx#: [id number] Zithromax 500 mg 250 Injection 500 mg In Sodium Chloride 0.9 % 250 ml 250 ml @ 250 mls/hr IVPB Q24H [facility] Rx#: [id number] Zosyn 3.375 gm Injection 150 50 50 3.375 gm In Sodium Chloride 0.9 % 50 ml 50 ml @ 100 mls/hr IVPB Q6H [facility] Rx#:[id number] Intake ml 120 240 480 Output: Output ml 147 399 7081 ANDRE drain to Rt abd 35 40 33 Stool 0 tanner 318 950 3243 Laboratory-Last 48 hrs: 02/12/22 05:59 02/12/22 05:59 Laboratory Results-last 24 hrs 02/11/22 06:07: RBC 3.70 L, Hgb 11.2 L, Hct 35.6 L, MCV 96.2 H, MCHC 31.5 L, Neut % (Auto) 79.9 H, Lymph % (Auto) 13.3 L, [place] % (Auto) 4.9 L, Absolute Neuts(auto) 6.66 H, Absolute Lymphs (auto) 1.10 L 02/11/22 06:07: AST 101 H, ALT 181 H, Alkaline Phosphatase 142 H, Total Protein 5.4 L, Albumin 1.7 L, Albumin/Globulin Ratio 0.5 L 02/12/22 05:59: Phosphorus 1.6 L 02/12/22 05:59: RBC 3.63 L, Hgb 10.8 L, Hct 34.5 L, MCV 95.0 H, MCHC 31.3 L, Neut % (Auto) 68.0 H, Eos % (Auto) 3.0 H 02/12/22 05:59: NT-Pro-B Natriuret Pep 821 H Radiology-Impressions: See radiology reports in electronic medical record. Plan/Treatment Plan: assessment severe sepsis lactic acidosis, resolved gangrenous cholecysitis s/p laparoscopic coverted to open cholecystectomy with cholangiogram 02/09/22 hyperbilirubinemia acute hypoxic hypercapnic respiratory failure requiring bipap CAP and bronchitis covid ruled out small bilateral pleural effusions rectal inflammation/infection acute on chronic constipation history of stroke/craniectomy [address] 2 seizure d/o depression/anxiety BPH obesity plan continue iv hydration, pain control, antiemetics wound vac in place, andre drain in place surgery following, soft diet still on high o2, continue to wean reviewed echo in 2019 - ef 65%, normal diastolic function. repeat cxr - similar incentive spirometer f/u blood cultures. unable to provide sputum cultures. f/up OR culture - negative. covid ruled out continue piperacillin tazobactam follow liver enzymes, renal fxn trend, i/os, daily wts continue home keppra, amlodipine home donepezil, duloxetine, citalopram, flexeril, finasteride, tamsulosin iv famotidine for gi prophy sq enoxaparin for dvt prophy cct 32 min New Orders: New Orders-Lab 02/13/22 04:00 Basic Metabolic Panel [CHM] DAILY@0400 CBC w/Auto Differential [HEM] DAILY@0400 02/14/22 04:00 Basic Metabolic Panel [CHM] DAILY@0400 CBC w/Auto Differential [HEM] DAILY@0400 Electronically Generated By:PIA GARLAND MD Generated Date/Time: 02/12/221843 Electronically Signed By: PIA GARLAND MD Signed Date/Time 02/12/221847 Co Signed Electronically By: Co Signed Date/Time: CC: [facility] Work Phone: [phone] Progress note Author BORA LONG [facility] February 12, 2022 6:32pm Note Date/Time February 12, 2022 6:3 2pm [facility] [address] [place] [address] HEALTH INFORMATION MANAGEMENT PHYSICIAN NOTE : [phone] Signed Patient: JOHNATHAN GONZALEZ Acct:[id number] MRUN: [id number] : 1975 Sex: M Loc: ICU AD M Date: 02/08/22 Room/Bed: [facility]-A DISC Date: PHYSICIAN NOTE - PHYSICIAN NOTE PHYSICIAN NOTE: The wound VAC was changed. The wound measures 15 cm x 2 cm. A DME VAC dressing was applied. A good seal was obtained. Anticipate wound closure on Sat. Electronically Generated By:BORA LONG MD Generated Date/Time: 02/12/221829 Electronically Signed By: BORA LONG MD Signed Date/Time 02/12/221831 Co Signed Electronically By: Co Signed Date/Time: CC: [facility] Work Phone: 1(853) 145-594508-07-2022 Progress note Author PIA GARLAND [facility] February 11, 2022 12:39pm Note Date/Time February 11, 2022 12: 33pm [facility] [address] [place] [address] HEALTH INFORMATION MANAGEMENT PROGRESS NOTE : [phone] Signed Patient: JOHNATHAN GONZALEZ Acct:[id number] MRUN: [id number] : 1975 Sex: M Loc: ICU AD M Date: 02/08/22 Room/Bed: 355-A DISC Date: Subjective Assessment Date Of Service: 02/11/22 Events Since Admission: JOHNATHAN GONZALEZ was admitted to [facility] service into room 355 on 02/08/22 at 14:31 for complaints of RECTAL INFLAMMATION PNEUMONIA DYSPENA ABD PAIN. The patient's laboratory testing and diagnostic testing has been reviewed. Subjective Note: No overnight acute events, remains on bubble high flow 12 L Patient seen today, sleeping, easily awakened with voice Denies chest pain Some shortness of breath. No fevers or chills Reports abdominal pain. General: Confirms: Weakness, Fatigue. Denies: Fever, Chills, Sweats, Weight Gain, Weight Loss, Other ENT: Denies: Earache, Ear Discharge, Decreased Hearing, Tinnitus, Nose Congestion, Nose Drainage, Nasal Ulcers, Epitaxis, Sore Throat, Throat Swelling,Hoarseness, Loss Of Voice, Tongue Pain, Tongue Swelling, Lip Swelling, Dental Pain, Cervical, Other Respiratory: Denies: Cough, Shortness of Breath, Wheezing, Sputum Production, Hemoptysis, Dyspnea on Exertion, Pleuritic Pain, Other Cardiovascular: Denies: Chest Pain-Sharp, Chest Pain-Heavy, Orthopnea, Short of Breath, Dyspnea on Exertion, Paroxysmal Noc. Dyspnea, Edema, Palpitations, LightHeadedness, Syncope, Diaphoresis, Claudication, Edema, Other Gastrointestinal: Denies: Nausea, Vomiting, Abdominal Pain, Diarrhea, Constipation, Melena, Hematochezia, Other Genitourinary: Denies: Dysuria, Frequency, Incontinence, Hematuria, Retention, Other Musculoskeletal: Denies: Neck Pain, Shoulder Pain, Arm Pain, Back Pain, Hand Pain, Leg Pain, Foot Pain, Other Neurological: Confirms: Weakness. Denies: Numbness, Incoordination, Change in Speech, Confusion, Seizures, Other Objective Findings General: Yes: Alert, Cooperative/Pleasant, No acute distress HEENT: Yes: Atraumatic, PERRLA, Mucous membr. moist/pink, EOMI. No: Vision Impaired, Hearing Impaired Neck: Yes: Supple. No: JVD Lungs: Yes: Unlabored, Diminished. No: Exibits Shortness of [place], Pursed Lip Breathing, Use of Accessory Muscles, Retracting Cardiovascular: Yes: Regular rate, Normal S2, Normal S1, No murmurs, Window Draper Rhythm (Sinus Rhythm). No: Gallops, Rubs, Ectopy Abdomen: Yes: Tenderness Noted, Other (wound vac in place. andre drain in place ). No: Hepatospenomegaly, Masses, Nausea/Vomiting, Emesis Present, Constipation, Diarrhea Genitourinary/Rectal: Yes: Deferred-Not Relevant Extremities: Yes: Normal pulses. No: Clubbing, Cyanosis, Edema, No tenderness/swelling, Mottling noted Skin: No: Rashes, Skin Breakdown, Significant lesions, Open Wound Present Neurological: Yes: Normal Gait, Speech Clear, Cognitive Ability Intact Psych/Mental Status: Yes: Mental status NL, Mood Appropriate. No: Restless, Flat Affect, Depressed/Withdrawn, Hostile/Combative, Anxious, Hallucinations Vitals and I&O: Vital Signs Temperature 98.8 F 02/11/22 11:52 Pulse Rate 87 02/11/22 12:02 Respiratory Rate 12 02/11/22 12:02 Blood Pressure 100/74 02/11/22 11:52 O2 Sat by Pulse Oximetry(%) 94 02/11/22 11:52 FiO2 - Manual Entry 60 02/09/22 23:40 Intake & Output 02/10/22 02/11/22 02/11/22 23:59 11:59 23:59 Intake Total 1580 1340 Output Total 675 527 115 Balance 905 813 -115 Weight 220 lb 12.8 oz Intake: IV Intake 1100 1100 Sodium Chloride 0.9 % 1000 1000 1000 ml 1,000 ml @ 100 mls/hr IV .Q10H PRN Rx#: [id number] Zosyn 3.375 gm Injection 100 100 3.375 gm In Sodium Chloride 0.9 % 50 ml 50 ml @ 100 mls/hr IVPB Q6H [facility] Rx#:[id number] Intake ml 480 240 Output: Output ml 615 527 115 ANDRE drain to Rt abd 55 42 15 Stool 0 tanner 560 485 100 Output, Drainage Amount 60 Right Abdomen 30 Right lateral abdomen 30 Laboratory-Last 48 hrs: 02/11/22 06:07 02/11/22 06:07 Laboratory Results-last 24 hrs 02/09/22 14:51: ABG pH 7.299 L, ABG pCO2 49.3 H, ABG pO2 74.4 L, ABG Base Excess-3.2 L, ABG Oxyhemoglobin 92.6 L, ABG Deoxyhemoglobin 6.1 H 02/09/22 18:45: Creatinine 1.39 H, Est GFR (MDRD) Non-Af 54 A, Glucose 147 H, Total Bilirubin 3.59 H, Direct Bilirubin 3.01 H, AST 160 H, ALT 283 H, Alkaline Phosphatase 181 H, Total Protein 6.0 L, Albumin 2.0 L, Albumin/Globulin Ratio 0.5 L 02/09/22 18:45: WBC 21.8 H, MCHC 32.7 L, Neut % (Auto) 98.0 H, Lymph % (Auto) 2.0 L, [place] % (Auto) 2.0 L, Eos % (Auto) 0 L, Baso % (Auto) 0 L, Absolute Neuts (auto) 21.36 H, Absolute Lymphs (auto) 0 L 02/09/22 18:45: Neutrophils (Manual) 98 H, Monocytes (Manual) 2 L, Eosinophils (Manual) 0 L 02/10/22 05:42: WBC 15.9 H, RBC 4.05 L, Hgb 12.1 L, MCV 94.3 H, MCHC 31.7 L, Neut % (Auto) 90.9 H, Lymph % (Auto) 4.7 L, [place] % (Auto) 4.2 L, Eos % (Auto) 0 L, Baso % (Auto) 0.1 L, Absolute Neuts (auto) 14.43 H, Absolute Lymphs (auto) 0.80 L 02/10/22 05:42: Creatinine 1.33 H, Est GFR (MDRD) Non-Af 57 A, Glucose 136 H, Total Bilirubin 1.30 H, AST 113 H, ALT 245 H, Alkaline Phosphatase 166 H, Albumin 1.8 L, Globulin 4.6 H, Albumin/Globulin Ratio 0.4 L 02/11/22 06:07: RBC 3.70 L, Hgb 11.2 L, Hct 35.6 L, MCV 96.2 H, MCHC 31.5 L, Neut % (Auto) 79.9 H, Lymph % (Auto) 13.3 L, [place] % (Auto) 4.9 L, Absolute Neuts(auto) 6.66 H, Absolute Lymphs (auto) 1.10 L 02/11/22 06:07: AST 101 H, ALT 181 H, Alkaline Phosphatase 142 H, Total Protein 5.4 L, Albumin 1.7 L, Albumin/Globulin Ratio 0.5 L Radiology-Impressions: See radiology reports in electronic medical record. Plan/Treatment Plan: assessment severe sepsis lactic acidosis, resolved gangrenous cholecysitis s/p laparoscopic coverted to open cholecystectomy with cholangiogram 02/09/22 hyperbilirubinemia acute hypoxic hypercapnic respiratory failure requiring bipap CAP and bronchitis covid ruled out small bilateral pleural effusions rectal inflammation/infection acute on chronic constipation history of stroke/craniectomy [address] 2 seizure d/o depression/anxiety BPH obesity plan continue iv hydration, pain control, antiemetics wound vac in place, andre drain in place surgery following. advancing diet today Currently on high flow 12 L, remains ill reviewed echo in 2019 - ef 65%, normal diastolic function. repeat cxr incentive spirometer f/u blood cultures. unable to provide sputum cultures. f/up OR culture. covid ruled out continue piperacillin tazobactam follow liver enzymes, renal fxn trend, i/os, daily wts continue home keppra, amlodipine home donepezil, duloxetine, citalopram, flexeril, finasteride, tamsulosin iv famotidine for gi prophy sq enoxaparin for dvt prophy cct 33 min New Orders: New Orders-Lab 02/12/22 04:00 Basic Metabolic Panel [CHM] DAILY@0400 CBC w/Auto Differential [HEM] DAILY@0400 Magnesium [CHM] Routine Phosphorus [CHM] Routine 02/13/22 04:00 Basic Metabolic Panel [CHM] DAILY@0400 CBC w/Auto Differential [HEM] DAILY@0400 02/14/22 04:00 Basic Metabolic Panel [CHM] DAILY@0400 CBC w/Auto Differential [HEM] DAILY@0400 Electronically Generated By:PIA GARLAND MD Generated Date/Time: 02/11/22 1230 Electronically Signed By: PIA GARLAND MD Signed Date/Time 02/11/22 1239 Co Signed Electronically By: Co Signed Date/Time: CC: [facility] Work Phone: 1([phone]) [phone] Progress note Author BORA LONG [facility] February 11, 2022 9:55am Note Date/Time February 11, 2022 9:5 5am [facility] [address] [place] [address] HEALTH INFORMATION MANAGEMENT PHYSICIAN NOTE : [phone] Signed Patient: JOHNATHAN GONZALEZ Acct:[id number] MRUN: [id number] : 1975 Sex: M Loc: ICU AD M Date: 02/08/22 Room/Bed: 355-A DISC Date: PHYSICIAN NOTE - PHYSICIAN NOTE PHYSICIAN NOTE: Feels better. Abdomen, Jvac and VAC are OK. WBC normal. LFTs improving. Diet advanced. VAC change or removal tomorrow. Remove tanner tomorrow. Electronically Generated By:BORA LONG MD Generated Date/Time: 02/11/22 0953 Electronically Signed By: BORA LONG MD Signed Date/Time 02/11/22 0955 Co Signed Electronically By: Co Signed Date/Time: CC: [facility] Work Phone: [phone]) [phone] Progress note Author BORA LONG [facility] February 11, 2022 9:10am Note Date/Time February 09, 2022 1:5 7pm [facility] [address] [place], [place] [id number] HEALTH INFORMATION MANAGEMENT OPERATIVE REPORT : [id number] Signed Patient: JOHNATHAN GONZALEZ Acct:[id number] MRUN: [id number] : 1975 Sex: M Loc: ICU AD M Date: 02/08/22 Room/Bed: 355-A DISC Date: Operative Note DATE OF SERVICE: 02/09/22 SURGEON: Bora Long MD PREOPERATIVE DIAGNOSIS: Acute cholecystitis with calculi POSTOPERATIVE DIAGNOSIS: Gangrenous cholecystitis PROCEDURE: Laparoscopic to open cholecystectomy with cholangiogram. placemenmt of wound VAC 15 cm x 3 cm x 2cm. ANESTHESIA: General endotracheal COMPLICATIONS: none SPECIMENS: gallbladder EBL: 400cc INDICATIONS: The patient was admitted to the hospital with abdominal pain, elevated WBC, liver tests and lactate. Initial concern was about proctitis but evaluation identified acute cholecystitis with calculi and an abnormal rectum. Alaparoscopic cholecystiectomy with cholangiogram and rigid procto were recommended. Consent was provided. PROCEDURE IN DETAIL: After the patient was given an adequate general endotracheal anesthetic, he was placed in the left lateral decubitus position and a digital exam was done. The digital was normal. The rigid procto scope was inserted and a fair amount of liquid stool was present preventing an adequate exam but no obvious neoplasm or ischemia was present. He was prepped and draped in a sterile fashion in the supine position. A small right subcostal incision was made for open peritoneal access. Pneumoperitoneum was established. Purulent fluid without exudate was present in the right colic fossa and along the lateralaspect of the liver. The gallbladder was distended and had obvious transmural necrosis with gangrene. The gallbladder was decompressed with a trocar. The wallof the gallbladder was attenuated so I didn't feel the gallbladder would tolerate much traction. The serosal attachments of the gallbladder to the liver were divided with the hook dissector. The gallbladder was dissected off of the liver in a fundus to cystic duct direction. The dissection went good until the infundibulum was reached where inflammation and limited exposure were encountered. Small cholesterol stones began to spill so I felt it was time to convert to open surgery. The subcostal incision was extended and the Bookwalter was placed. The dissection of the cystic plate, artery and duct was tedious. Eventual the the artery and duct were dissected out, individually clipped and divided. The gallbladder was removed. A cholangiogram with C arm was done through the cystic duct stump. Flow was identified into the duodenum. No common duct stones or biliary anomalies were identified. The cholangiogram catheter wasremoved. The cystic duct stump was clipped. The subhepatic space was irrigated and there was no evidence of bleeding or bile leakage. Additional small cholesterol stones were removed. A Jvac drain was placed in the subhepatic space. The abdomen was closed in fascial layers with #1 PDS. Additional cholesterol stones were identified in the subcutaneous tissue. I felt that represented more contamination that would be acceptable for a closure of the subcutaneous tissue so I placed a DME Wound Vac in the wound that measured 15 cm x 3 cm x2 cm (depth). A good seal was obtained. when the VAC was hooked to suction. The patient tolerated the procedure well and was taken to PACU in satisfactory condition. FINDINGS: No apparent rectal neoplasm or ischemia, acute gangrenous cholecystitis with normal cholangiogram DISPOSITION: PACU EQUIPMENT USED: Hot biopsy forceps: N/A Biopsy forceps: N/A Snare: N/A Needle Injection: N/A Electronically Generated By:BORA LONG MD Generated Date/Time: 02/09/22 1355 Electronically Signed By: BORA LONG MD Signed Date/Time 02/11/22 0910 Co Signed Electronically By: Co Signed Date/Time: CC: BELLA GREEN MD; BORA LONG MD; TERESA ROMEO MD [facility] Work Phone: [phone]) [phone] Progress note Author PIA GARLAND [facility] February 10, 2022 1:01pm Note Date/Time February 10, 2022 1:0 1pm [facility] [address] [place] [address] HEALTH INFORMATION MANAGEMENT PROGRESS NOTE : [id number] Signed Patient: JOHNATHAN GONZALEZ Acct:[id number] MRUN: [id number] : 1975 Sex: M Loc: ICU AD M Date: 02/08/22 Room/Bed: 355-A DISC Date: Subjective Assessment Date Of Service: 02/10/22 Events Since Admission: JOHNATHAN GONZALEZ was admitted to [facility]ARE UNIT service into room 355 on 02/08/22 at 14:31 for complaints of RECTAL INFLAMMATION PNEUMONIA DYSPENA ABD PAIN. The patient's laboratory testing and diagnostic testing has been reviewed. Subjective Note: Overnight, patient was on BiPAP Today patient seen, on facemask, still requiring high fio2 at 50% on venti mask Patient seen today, complaining of abdominal pain. Not passing gas yet Some shortness of breath. Denies chest pain or palpitations General: Confirms: Weakness, Fatigue. Denies: Fever, Chills, Sweats, Weight Gain, Weight Loss, Other ENT: Denies: Earache, Ear Discharge, Decreased Hearing, Tinnitus, Nose Congestion, Nose Drainage, Nasal Ulcers, Epitaxis, Sore Throat, Throat Swelling,Hoarseness, Loss Of Voice, Tongue Pain, Tongue Swelling, Lip Swelling, Dental Pain, Cervical, Other Respiratory: Confirms: Shortness of Breath, Dyspnea on Exertion. Denies: Cough,Wheezing, Sputum Production, Hemoptysis, Pleuritic Pain, Other Cardiovascular: Confirms: Short of Breath, Dyspnea on Exertion. Denies: Chest Pain-Sharp, Chest Pain-Heavy, Orthopnea, Paroxysmal Noc. Dyspnea, Edema, Palpitations, Light Headedness, Syncope, Diaphoresis, Claudication, Edema, Other Gastrointestinal: Confirms: Abdominal Pain. Denies: Nausea, Vomiting, Diarrhea,Constipation, Melena, Hematochezia, Flatus, Other Genitourinary: Denies: Dysuria, Frequency, Incontinence, Hematuria, Retention, Other Musculoskeletal: Denies: Neck Pain, Shoulder Pain, Arm Pain, Back Pain, Hand Pain, Leg Pain, Foot Pain, Other Neurological: Confirms: Weakness. Denies: Numbness, Incoordination, Change in Speech, Confusion, Seizures, Other Objective Findings General: Yes: Alert, Oriented (X3), Cooperative/Pleasant, No acute distress HEENT: Yes: Atraumatic, PERRLA, Mucous membr. moist/pink, EOMI. No: Vision Impaired, Hearing Impaired Neck: Yes: Supple. No: JVD Lungs: Yes: Diminished, Exibits Shortness of [place], Pursed Lip Breathing, Use of Accessory Muscles. No: Retracting Cardiovascular: Yes: Regular rate, Normal S2, Normal S1, No murmurs, Window Draper Rhythm (Sinus Rhythm). No: Gallops, Rubs, Ectopy Abdomen: Yes: Large/Obese, Tenderness Noted, Flatus, Other (Surgical incision clean dry and intact, wound VAC in place. ANDRE drain in place). No: Distended, Hepatospenomegaly, Masses, Nausea/Vomiting, Emesis Present, Constipation, Diarrhea Genitourinary/Rectal: Yes: Deferred-Not Relevant Extremities: Yes: Normal pulses. No: Clubbing, Cyanosis, Edema, No tenderness/swelling, Mottling noted Skin: No: Rashes, Skin Breakdown, Significant lesions, Open Wound Present Neurological: Yes: Speech Clear, Normal tone, Sensation intact, Cognitive Ability Intact Psych/Mental Status: Yes: Mental status NL, Mood Appropriate. No: Hallucinations Vitals and I&O: Vital Signs Temperature 97.0 F 02/10/22 08:00 Pulse Rate 81 02/10/22 10:10 Respiratory Rate 14 02/10/22 10:00 Blood Pressure 115/74 02/10/22 10:00 O2 Sat by Pulse Oximetry(%) 98 02/10/22 10:00 FiO2 - Manual Entry 60 02/09/22 23:40 Intake & Output 02/09/22 02/10/22 02/10/22 23:59 11:59 23:59 Intake Total 150 2340 Output Total 885 465 Balance -735 1875 Weight 218 lb Intake: IV Intake 150 2300 OFIRMEV 1,000MG/100 ML 1, 100 200 000 mg In 100 ml @ 400 mls/hr IVPB Q8H ELIER Rx#: [id number] Sodium Chloride 0.9 % 1000 1000 ml 1,000 ml @ 100 mls/hr IV .Q10H PRN Rx#: [id number] Sodium Chloride 0.9 % 1000 1000 ml 1,000 ml @ 1000 mls/hr IV .Q1H ONE Rx#: [id number] Zosyn 3.375 gm Injection 50 100 3.375 gm In Sodium Chloride 0.9 % 50 ml 50 ml @ 100 mls/hr IVPB Q6H ELIER Rx#:[id number] Intake ml 40 Oral 40 Output: Output ml 885 465 ANDRE drain to Rt abd 25 40 tanner 260 425 Laboratory-Last 48 hrs: 02/10/22 05:42 02/10/22 05:42 Laboratory Results-last 24 hrs 02/08/22 18:18: Plasma Lactic Acid Peterson 2.6 H* 02/08/22 20:45: Plasma Lactic Acid Peterson 2.4 H* 02/09/22 05:33: WBC 22.1 H, Neut % (Auto) 89.9 H, Lymph % (Auto) 4.5 L, Broome % (Auto) 5.1 L, Eos % (Auto) 0 L, Baso % (Auto) 0.1 L, Absolute Neuts (auto) 19.87H, Absolute Lymphs (auto) 1.00 L, Absolute Monos (auto) 1.10 H 02/09/22 05:33: Creatinine 1.20 H, Glucose 137 H, Total Bilirubin 3.69 H, AST 293 H, ALT 373 H, Alkaline Phosphatase 218 H, Albumin 2.4 L, Albumin/Globulin Ratio 0.6 L 02/09/22 05:33: Direct Bilirubin 2.81 H 02/09/22 14:51: ABG pH 7.299 L, ABG pCO2 49.3 H, ABG pO2 74.4 L, ABG Base Excess-3.2 L, ABG Oxyhemoglobin 92.6 L, ABG Deoxyhemoglobin 6.1 H 02/09/22 18:45: Creatinine 1.39 H, Est GFR (MDRD) Non-Af 54 A, Glucose 147 H, Total Bilirubin 3.59 H, Direct Bilirubin 3.01 H, AST 160 H, ALT 283 H, Alkaline Phosphatase 181 H, Total Protein 6.0 L, Albumin 2.0 L, Albumin/Globulin Ratio 0.5 L 02/09/22 18:45: WBC 21.8 H, MCHC 32.7 L, Neut % (Auto) 98.0 H, Lymph % (Auto) 2.0 L, Broome % (Auto) 2.0 L, Eos % (Auto) 0 L, Baso % (Auto) 0 L, Absolute Neuts (auto) 21.36 H, Absolute Lymphs (auto) 0 L 02/09/22 18:45: Neutrophils (Manual) 98 H, Monocytes (Manual) 2 L, Eosinophils (Manual) 0 L 02/10/22 05:42: WBC 15.9 H, RBC 4.05 L, Hgb 12.1 L, MCV 94.3 H, MCHC 31.7 L, Neut % (Auto) 90.9 H, Lymph % (Auto) 4.7 L, [place] % (Auto) 4.2 L, Eos % (Auto) 0 L, Baso % (Auto) 0.1 L, Absolute Neuts (auto) 14.43 H, Absolute Lymphs (auto) 0.80 L 02/10/22 05:42: Creatinine 1.33 H, Est GFR (MDRD) Non-Af 57 A, Glucose 136 H, Total Bilirubin 1.30 H, AST 113 H, ALT 245 H, Alkaline Phosphatase 166 H, Albumin 1.8 L, Globulin 4.6 H, Albumin/Globulin Ratio 0.4 L Radiology-Impressions: See radiology reports in electronic medical record. Plan/Treatment Plan: assessment severe sepsis lactic acidosis, resolved gangrenous cholecysitis s/p laparoscopic coverted to open cholecystectomy with cholangiogram 02/09/22 hyperbilirubinemia acute hypoxic hypercapnic respiratory failure requiring bipap CAP and bronchitis r/o covid small bilateral pleural effusions rectal inflammation/infection acute on chronic constipation history of stroke/craniectomy [address] 2 seizure d/o depression/anxiety BPH plan continue iv hydration, pain control, antiemetics wound vac in place surgery following, discussed case Currently on Ventimask, FiO2 50% f/u blood cultures, sputum cx. f/up OR culture. f/up covid-19 pcr, influenza continue piperacillin tazobactam follow liver enzymes, renal fxn trend, i/os, daily wts continue home keppra, amlodipine iv famotidine for gi prophy sq enoxaparin for dvt prophy cct 32 min Electronically Generated By:PIA GARLAND MD Generated Date/Time: 02/10/22 1259 Electronically Signed By: PIA GARLAND MD Signed Date/Time 02/10/22 1301 Co Signed Electronically By: Co Signed Date/Time: CC: [facility] Work Phone: 1(784) 265-505808-06-2022 Progress note Author BORA LONG [facility] February 10, 2022 11:14am Note Date/Time February 10, 2022 11: 14am [facility] [address] [place] [address] HEALTH INFORMATION MANAGEMENT PHYSICIAN NOTE : [phone] Signed Patient: JOHNATHAN GONZALEZ Acct:[id number] MRUN: [id number] : 1975 Sex: M Loc: ICU AD M Date: 02/08/22 Room/Bed: [facility]-A DISC Date: PHYSICIAN NOTE - PHYSICIAN NOTE PHYSICIAN NOTE: POD 1 open elliott with cholangiogram Abdomen, VAC, and drain OK WBC down His postop hypoventilation and atelectasis requiring CPAP have resolved. Clear liquids Continue IV antibiotics due to sequelae of gangrenous gallbladder Electronically Generated By:BORA LONG MD Generated Date/Time: 02/10/22 1111 Electronically Signed By: BORA LONG MD Signed Date/Time 02/10/22 1114 Co Signed Electronically By: Co Signed Date/Time: CC: [facility] Work Phone: 1(169) 205-765108-06-2022 Progress note Author PIA GARLAND [facility] February 09, 2022 11:26pm Note Date/Time February 09, 2022 11: 16pm [facility] [address] [place] [address] HEALTH INFORMATION MANAGEMENT PROGRESS NOTE : [id number] Signed Patient: JOHNATHAN GONZALEZ Acct:[id number] MRUN: [id number] : 1975 Sex: M Loc: ICU AD M Date: 02/08/22 Room/Bed: 355-A DISC Date: Subjective Assessment Date Of Service: 02/09/22 Events Since Admission: JOHNATHAN GONZALEZ was admitted to [facility]ARE UN[facility] service into room 355 on 02/08/22 at 14:31 for complaints of RECTAL INFLAMMATION PNEUMONIA DYSPENA ABD PAIN. The patient's laboratory testing and diagnostic testing has been reviewed. Subjective Note: no overnight acute events patient's bilirubin worsened this morning patient taken to the OR. before surgery, saturation was 86% patient underwent cholecystectomy patient seen post op at bedside, on bipap awake, in pain from surgery denies fever, chills General: Confirms: Weakness, Fatigue. Denies: Fever, Chills, Sweats, Weight Gain, Weight Loss, Other ENT: Denies: Earache, Ear Discharge, Decreased Hearing, Tinnitus, Nose Congestion, Nose Drainage, Nasal Ulcers, Epitaxis, Sore Throat, Throat Swelling,Hoarseness, Loss Of Voice, Tongue Pain, Tongue Swelling, Lip Swelling, Dental Pain, Cervical, Other Respiratory: Confirms: Shortness of Breath, Dyspnea on Exertion. Denies: Cough,Wheezing, Sputum Production, Hemoptysis, Pleuritic Pain, Other Cardiovascular: Confirms: Short of Breath, Dyspnea on Exertion. Denies: Chest Pain-Sharp, Chest Pain-Heavy, Orthopnea, Paroxysmal Noc. Dyspnea, Edema, Palpitations, Light Headedness, Syncope, Diaphoresis, Claudication, Edema, Other Gastrointestinal: Confirms: Abdominal Pain. Denies: Nausea, Vomiting, Diarrhea,Constipation, Melena, Hematochezia, Other Genitourinary: Denies: Dysuria, Frequency, Incontinence, Hematuria, Retention, Other Musculoskeletal: Denies: Neck Pain, Shoulder Pain, Arm Pain, Back Pain, Hand Pain, Leg Pain, Foot Pain, Other Neurological: Confirms: Weakness. Denies: Numbness, Incoordination, Change in Speech, Confusion, Seizures, Other Objective Findings General: Yes: Alert, Cooperative/Pleasant, Mild distress HEENT: Yes: Atraumatic, PERRLA, PERRL, Mucous membr. moist/pink, EOMI. No: Vision Impaired, Hearing Impaired Neck: Yes: Supple, +2 carotid pulse wo bruit. No: Thyromegaly Lungs: Yes: Unlabored, Diminished, Use of Accessory Muscles. No: Exibits Shortness of [place], Pursed Lip Breathing, Retracting Cardiovascular: Yes: Regular rate, Normal S2, Normal S1, No murmurs, Window Draper Rhythm (Sinus Rhythm). No: Gallops, Rubs, Ectopy Abdomen: Yes: Tenderness Noted, Flatus, Other (surgical incision. andre drain in place ). No: Hepatospenomegaly, Masses, Nausea/Vomiting, Emesis Present, Constipation, Diarrhea Genitourinary/Rectal: Yes: Deferred-Not Relevant Extremities: Yes: Normal pulses. No: Clubbing, Cyanosis, Edema, No tenderness/swelling, Mottling noted Skin: No: Rashes, Skin Breakdown, Significant lesions, Open Wound Present Neurological: Yes: Speech Clear, Normal tone, Sensation intact Psych/Mental Status: Yes: Mental status NL, Mood Appropriate. No: Hallucinations Vitals and I&O: Vital Signs Temperature 98.1 F 02/09/22 15:32 Pulse Rate 107 H 02/09/22 15:47 Respiratory Rate 16 02/09/22 15:47 Blood Pressure 127/96 H 02/09/22 15:47 O2 Sat by Pulse Oximetry(%) 93 02/09/22 15:47 FiO2 - Manual Entry Intake & Output 02/08/22 02/09/22 02/09/22 23:59 11:59 23:59 Intake Total 2152 1048 150 Output Total 412 325 700 Balance 1527 723 -550 Weight 214 lb 11.2 oz Intake: IV Intake 2152 1048 150 FLAGYL 500 MG PREMIX 500 100 mg In 100 ml @ 100 mls/hr IVPB Q8H STA Rx#: [id number] OFIRMEV 1,000MG/100 ML 1, 100 000 mg In 100 ml @ 400 mls/hr IVPB Q8H ELIER Rx#: [id number] Sodium Chloride 0.9 % 2 998 1000 ml 1,000 ml @ 100 mls/hr IV .Q10H PRN Rx#: [id number] Sodium Chloride 0.9 % 1000 1000 ml 1,000 ml @ 999 mls/hr IV .Q1H1M STA Rx#: [id number] Sodium Chloride 0.9 % 1000 1000 ml 1,000 ml @ 999 mls/hr IV .Q1H1M STA Rx#: [id number] Zosyn 3.375 gm Injection 50 50 3.375 gm In Sodium Chloride 0.9 % 50 ml 50 ml @ 100 mls/hr IVPB Q6H ELIER Rx#:[id number] Zosyn 3.375 gm Injection 50 3.375 gm In Sodium Chloride 0.9 % 50 ml 50 ml @ 100 mls/hr IVPB Q6H ELIER Rx#:[id number] Intake ml 0 Oral 0 Output: Output ml 625 325 700 Urine 400 tanner 225 325 100 Laboratory-Last 48 hrs: 02/09/22 18:45 02/09/22 18:45 Laboratory Results-last 24 hrs 02/08/22 11:10: Glucose 139 H, ALT 92 H, Alkaline Phosphatase 152 H, Albumin 3.0L, Albumin/Globulin Ratio 0.7 L 02/08/22 11:10: WBC 19.0 H, Neut % (Auto) 89.7 H, Lymph % (Auto) 5.2 L, Broome % (Auto) 4.6 L, Eos % (Auto) 0.1 L, Absolute Neuts (auto) 17.08 H, Absolute Lymphs(auto) 1.00 L, Absolute Monos (auto) 0.90 H 02/08/22 11:10: Plasma Lactic Acid Peterson 2.4 H* 02/08/22 18:18: Plasma Lactic Acid Peterson 2.6 H* 02/08/22 20:45: Plasma Lactic Acid Peterson 2.4 H* 02/09/22 05:33: WBC 22.1 H, Neut % (Auto) 89.9 H, Lymph % (Auto) 4.5 L, Broome % (Auto) 5.1 L, Eos % (Auto) 0 L, Baso % (Auto) 0.1 L, Absolute Neuts (auto) 19.87H, Absolute Lymphs (auto) 1.00 L, Absolute Monos (auto) 1.10 H 02/09/22 05:33: Creatinine 1.20 H, Glucose 137 H, Total Bilirubin 3.69 H, AST 293 H, ALT 373 H, Alkaline Phosphatase 218 H, Albumin 2.4 L, Albumin/Globulin Ratio 0.6 L 02/09/22 05:33: Direct Bilirubin 2.81 H 02/09/22 14:51: ABG pH 7.299 L, ABG pCO2 49.3 H, ABG pO2 74.4 L, ABG Base Excess-3.2 L, ABG Oxyhemoglobin 92.6 L, ABG Deoxyhemoglobin 6.1 H 02/09/22 18:45: Creatinine 1.39 H, Est GFR (MDRD) Non-Af 54 A, Glucose 147 H, Total Bilirubin 3.59 H, Direct Bilirubin 3.01 H, AST 160 H, ALT 283 H, Alkaline Phosphatase 181 H, Total Protein 6.0 L, Albumin 2.0 L, Albumin/Globulin Ratio 0.5 L 02/09/22 18:45: WBC 21.8 H, MCHC 32.7 L, Neut % (Auto) 98.0 H, Lymph % (Auto) 2.0 L, Broome % (Auto) 2.0 L, Eos % (Auto) 0 L, Baso % (Auto) 0 L, Absolute Neuts (auto) 21.36 H, Absolute Lymphs (auto) 0 L 02/09/22 18:45: Neutrophils (Manual) 98 H, Monocytes (Manual) 2 L, Eosinophils (Manual) 0 L Radiology-Impressions: See radiology reports in electronic medical record. Plan/Treatment Plan: assessment severe sepsis lactic acidosis, resolved gangrenous cholecysitis s/p laparoscopic coverted to open cholecystectomy with cholangiogram 02/09/22 hyperbilirubinemia acute hypoxic hypercapnic respiratory failure requiring bipap CAP and bronchitis r/o covid small bilateral pleural effusions rectal inflammation/infection acute on chronic constipation history of stroke/craniectomy [address] 2 seizure d/o depression/anxiety BPH plan continue iv hydration, pain control, antiemetics wound vac in place surgery following, discussed case abg out of or reviewed on bipap cxr reveiwed f/u blood cultures, sputum cx. f/up OR culture. f/up covid-19 pcr, influenza continue piperacillin tazobactam follow liver enzymes, renal fxn trend, i/os, daily wts continue home keppra, amlodipine iv famotidine for gi prophy sq enoxaparin for dvt prophy patient and brother/HPOA extensively advised cct 35 min New Orders: New Orders-Lab 02/09/22 18:45 CBC w/Auto Differential [HEM] Urgent Comprehensive Metabolic Panel [CHM] Urgent Differential Manual [HEM] Urgent Direct Bilirubin [CHM] Urgent Lactic Acid (Venous) [CHM] Urgent New Order-Therapy 02/09/22 16:50 BiPAP [RESP] CONT 02/09/22 19:00 Blood Gas Charge [RESP] ONE Electronically Generated By:PIA GARLAND MD Generated Date/Time: 02/09/222313 Electronically Signed By: PIA GARLAND MD Signed Date/Time 02/09/222325 Co Signed Electronically By: Co Signed Date/Time: CC: [facility] Work Phone: 1(884) 651-961108-04-2022 Consult note Author BORA LONG [facility] February 08, 2022 7:47pm Note Date/Time February 08, 2022 7:4 7pm [facility] [address] [place] [address] HEALTH INFORMATION MANAGEMENT CONSULTATION : [id number] Signed Patient: JOHNATHAN GONZALEZ Acct:[id number] MRUN: [id number] : 1975 Sex: M Loc: 4TH FLOOR ADM Date: 02/08/22 Room/Bed: 432-B DISC Date: Date Of Service: 02/08/22 Reason For Consultation?: Hospital consult for acute cholecystitis Requesting Physician:: GUZMAN LYNN Allergies/Adverse Reactions: No Known Allergies Allergy (Verified 04/26/19 04:44) Consultation Impression: Johnathan was admitted with abdominal pain and nausea. The CT showed a distended gallbladder with gallstones on US. History of CVA, hypertension EXAM: Tender in the RUQ. CT and US reviewed. Posterior wall of rectum is thickened. WBC 19 K. Alk phos and lactate slightly elevated. IMP: Acute cholecystitis. Abnormal CT of rectum PLAN: Lap elliott with cholangiogram, rigid procto The medical power of research attorney is Rayray Lisa, [phone] Past Medical History Hx Ear/Nose/Throat Disorders: No Hx Neurological Disorder: Yes PMH-Neurological: Confirms: Headaches Hx Psychosocial Problems: No PMH--Psychological & Treatments: Confirms: Anxiety, Depression Hx Cardiac Disorders: Yes PMH--Cardiovascular: Confirms: HTN Hx Respiratory Disorders: No Hx Endocrine Disorders: No Hx Musculoskeletal Disorders: Yes Hx Reproductive Disorders: No Hx Genitourinary Disorders: No PMH--Other-:: back pain Hx Gastrointestinal Disorders: No Hx Cancer: No Past Social History Marital Status: Lives with: Nursing Facility Occupation: disability Highest Educational Level: High School Able to Read: Yes Able to Write: Yes Alcohol Use: Never - [place]/Gender ID What is your current Gender Identity? Choose all that Apply: Male Define your Sexual Orientation?: Straight/Heterosexual - [place]-Suicide Severity Rating Scale 1) Wish to be :: No 2) Suicidal Thoughts:: No 6) Suicidal Behavior Question (A): LIFETIME: No 6) Suicidal Behavior Question (B): PAST 3 MONTHS: No Family Medical History - Family Medical History No Significant Family History Ethnicity: Pt declinded to provide Physical Exam Vital Signs: Vital Signs (72 hours) 02/08/22 02/08/22 02/08/22 10:28 10:29 11:28 Temperature 98.6 F Pulse Rate 95 Pulse Rate [ 97 Window Draper ] Pulse Rate [Pre - Resp. Treatment] Pulse Rate [VS Machine] Respiratory 14 Rate Respiratory Rate [Pre- Resp . Treatment] Blood Pressure Blood Pressure 139/104 H [Left Arm] O2 Sat by Pulse 93 92 L 95 Oximetry(%) 02/08/22 02/08/22 02/08/22 11:30 11:40 11:50 Temperature Pulse Rate 95 95 96 Pulse Rate [ Window Draper ] Pulse Rate [Pre - Resp. Treatment] Pulse Rate [VS Machine] Respiratory Rate Respiratory Rate [Pre- Resp . Treatment] Blood Pressure Blood Pressure [Left Arm] O2 Sat by Pulse 92 L 91 L 92 L Oximetry(%) 02/08/22 02/08/22 02/08/22 12:00 12:10 12:20 Temperature Pulse Rate 96 95 94 Pulse Rate [ Window Draper ] Pulse Rate [Pre - Resp. Treatment] Pulse Rate [VS Machine] Respiratory Rate Respiratory Rate [Pre- Resp . Treatment] Blood Pressure 142/108 H Blood Pressure [Left Arm] O2 Sat by Pulse 93 92 L 92 L Oximetry(%) 02/08/22 02/08/22 02/08/22 12:30 12:40 12:50 Temperature Pulse Rate 92 92 92 Pulse Rate [ Window Draper ] Pulse Rate [Pre - Resp. Treatment] Pulse Rate [VS Machine] Respiratory Rate Respiratory Rate [Pre- Resp . Treatment] Blood Pressure Blood Pressure [Left Arm] O2 Sat by Pulse 93 94 93 Oximetry(%) 02/08/22 02/08/22 02/08/22 13:00 13:01 13:10 Temperature Pulse Rate 99 91 96 Pulse Rate [ Window Draper ] Pulse Rate [Pre - Resp. Treatment] Pulse Rate [VS Machine] Respiratory Rate Respiratory Rate [Pre- Resp . Treatment] Blood Pressure 145/107 H 138/95 H Blood Pressure [Left Arm] O2 Sat by Pulse 93 94 93 Oximetry(%) 02/08/22 02/08/22 02/08/22 13:20 13:30 13:40 Temperature Pulse Rate 94 92 98 Pulse Rate [ Window Draper ] Pulse Rate [Pre - Resp. Treatment] Pulse Rate [VS Machine] Respiratory Rate Respiratory Rate [Pre- Resp . Treatment] Blood Pressure Blood Pressure [Left Arm] O2 Sat by Pulse 92 L 91 L 92 L Oximetry(%) 02/08/22 02/08/22 02/08/22 13:50 14:00 14:10 Temperature Pulse Rate 92 92 98 Pulse Rate [ Window Draper ] Pulse Rate [Pre - Resp. Treatment] Pulse Rate [VS Machine] Respiratory Rate Respiratory Rate [Pre- Resp . Treatment] Blood Pressure 142/99 H Blood Pressure [Left Arm] O2 Sat by Pulse 94 93 92 L Oximetry(%) 02/08/22 02/08/22 02/08/22 14:20 14:30 14:35 Temperature Pulse Rate 91 98 Pulse Rate [ Window Draper ] Pulse Rate [Pre 92 - Resp. Treatment] Pulse Rate [VS Machine] Respiratory Rate Respiratory 16 Rate [Pre- Resp . Treatment] Blood Pressure Blood Pressure [Left Arm] O2 Sat by Pulse 93 93 96 Oximetry(%) 02/08/22 02/08/22 02/08/22 14:40 14:50 15:00 Temperature Pulse Rate 89 91 95 Pulse Rate [ Window Draper ] Pulse Rate [Pre - Resp. Treatment] Pulse Rate [VS Machine] Respiratory Rate Respiratory Rate [Pre- Resp . Treatment] Blood Pressure 143/94 H Blood Pressure [Left Arm] O2 Sat by Pulse 95 98 95 Oximetry(%) 02/08/22 02/08/22 02/08/22 15:08 15:20 15:28 Temperature 98.2 F 98.2 F Pulse Rate 94 84 Pulse Rate [ Window Draper ] Pulse Rate [Pre - Resp. Treatment] Pulse Rate [VS 94 Machine] Respiratory 16 16 Rate Respiratory Rate [Pre- Resp . Treatment] Blood Pressure 135/89 Blood Pressure 135/89 [Left Arm] O2 Sat by Pulse 96 96 98 Oximetry(%) 02/08/22 15:30 Temperature Pulse Rate 92 Pulse Rate [ Window Draper ] Pulse Rate [Pre - Resp. Treatment] Pulse Rate [VS Machine] Respiratory Rate Respiratory Rate [Pre- Resp . Treatment] Blood Pressure Blood Pressure [Left Arm] O2 Sat by Pulse 97 Oximetry(%) Electronically Generated By:BORA LONG MD Generated Date/Time: 02/08/221939 Electronically Signed By: BORA LONG MD Signed Date/Time 02/08/221946 Co Signed Electronically By: Co Signed Date/Time: CC: BORA LONG MD; TERESA ROMEO MD [facility] Work Phone: [phone] 365-889908-04-2022 History and physical note Author BELLA GREEN [facility] February 08, 2022 4:40pm Note Date/Time February 08, 2022 4:0 2pm [facility] [address] [place] [address] HEALTH INFORMATION MANAGEMENT HISTORY AND PHYSICAL : Signed Patient: LISAJOHNATHAN Luisa Acct:[id number] MRUN: [id number] : 1975 Sex: M Loc: 4TH FLOOR ADM Date: 02/08/22 Room/Bed: 432-B DISC Date: History of Present Illness Date Of Admission: 02/08/22 Chief Complaint: abdominal pain, constipation History of Present Illness: Visit History JOHNATHAN GONZALEZ is a 47 year old M patient of TERESA ROMEO. Patient was admitted from to room 432, bed B on 02/08/22 14:31. Pt was evaluated for complaints of , then admitted to [facility] for RECTAL INFLAMMATION PNEUMONIA DYSPENA ABD PAIN. JOHNATHAN was admitted as a ADM to [facility] for further evaluation and treatment. Pt was seen and evaluated on 02/08/22 1532, by this provider, BELLA GREEN MD. 47yoM w/ PMHx stroke/craniectomy in 2019 but the history he provides is very limited, HTN, who was brought to the ED due to one day history of worsening diffuse abdominal pain, nausea, constipation, associated with 2 days of no BM. He also complains of nasal congestion, cough and shortness of breath. He denies chest pain or palpitations. His brother Eladio is his POA, can't recall if stroke in 2019 was hemorrhagic or ischemic. Patient was received w/ BP in the 140s/100s, HR 94-98, RR 18-22, sPO2 91-92 on room air, T 98.6. Workup reveals WBC 19.0, hgb 15.2, lactic acid 2.4, ALT 92, alk phos 152. CT of the abdomen andpelvis was performed on admission and reveals findings of posterior and posterolateral bowel wall thickening of the distal rectum cannot be excluded andmay reflect an inflammatory/infectious process or neoplastic disease, gallbladder hydrops, lingular and bilateral lower lobe infiltrates, bronchiectasis and peribronchial thickening, cardiomegaly with minimal pericardial effusion, prostate enlargement. Patient is awake, alert and oriented x 3, he and his brother Eladio(HPLATOYA) have both been advised of admission and likely endoscopic evaluation and possible surgery. They both verbalize theirunderstanding and agreement to plan. Allergies/Adverse Reactions: No Known Allergies Allergy (Verified 04/26/19 04:44) Home Medications: Patient History Acetaminophen [Aphen] 650 mg PO Q4H PRN 02/08/22 [History Confirmed 02/08/22] Amlodipine Besylate [Norvasc] 5 mg PO DAILY 02/08/22 [History Confirmed 02/08/22] Baclofen [Baclofen 10 mg Tablet] 10 mg PO TID 02/08/22 [History Confirmed 02/08/22] Bisacodyl [Onelax] 10 mg RC Q24H PRN 02/08/22 [History Confirmed 02/08/22] Cholecalciferol (Vitamin D3) [D3-50] 1 capsule PO DAILY 02/08/22 [History Confirmed 02/08/22] Citalopram Hydrobromide [Celexa 10 mg Tablet] 10 mg PO DAILY 02/08/22 [History Confirmed 02/08/22] Cyclobenzaprine HCl [Flexeril 10 mg Tablet] 10 mg PO TID 02/08/22 [History Confirmed 02/08/22] Duloxetine HCl [Drizalma Sprinkle] 60 mg PO DAILY 02/08/22 [History Confirmed 02/08/22] Famotidine [Pepcid AC] 10 mg PO DAILY 02/08/22 [History Confirmed 02/08/22] Levetiracetam [Keppra] 500 mg PO BID 02/08/22 [History Confirmed 02/08/22] Mag Hydrox/Al Hydrox/Simeth [Mylanta/Maalox Generic Liquid 30 ml] 30 ml PO Q6H 02/08/22 [History Confirmed 02/08/22] Magnesium Hydroxide [Milk of Magnesia] 30 ml PO Q24H PRN 02/08/22 [History Confirmed 02/08/22] Melatonin 5 mg PO QHS 02/08/22 [History Confirmed 02/08/22] Menthol [Biofreeze] 1 applic TP BID 02/08/22 [History Confirmed 02/08/22] Oxycodone HCl [Roxicodone] 5 mg PO Q12H PRN 02/08/22 [History Confirmed 02/08/22] Polyethylene Glycol 3350 [Miralax Packet 17 gm] 1 applic PO DAILY 02/08/22 [History Confirmed 02/08/22] Rivastigmine Tartrate [Rivastigmine] 4.5 mg PO DAILY 02/08/22 [History Confirmed 02/08/22] Sennosides [Angela-Sue] 2 tab PO BID 02/08/22 [History Confirmed 02/08/22] Past Social History Lives with: Nursing Facility Able to Read: Yes Able to Write: Yes Alcohol Use: Never - [place]/Gender ID What is your current Gender Identity? Choose all that Apply: Male Define your Sexual Orientation?: Straight/Heterosexual - [place]-Suicide Severity Rating Scale 1) Wish to be :: No 2) Suicidal Thoughts:: No 6) Suicidal Behavior Question (A): LIFETIME: No 6) Suicidal Behavior Question (B): PAST 3 MONTHS: No Past Medical History Hx Ear/Nose/Throat Disorders: No Hx Neurological Disorder: Yes PMH-Neurological: Confirms: Headaches Hx Psychosocial Problems: No PMH--Psychological & Treatments: Confirms: Anxiety, Depression Hx Cardiac Disorders: Yes PMH--Cardiovascular: Confirms: HTN Hx Respiratory Disorders: No Hx Endocrine Disorders: No Hx Musculoskeletal Disorders: Yes Hx Reproductive Disorders: No Hx Genitourinary Disorders: No PMH--Other-:: back pain Hx Gastrointestinal Disorders: No Hx Cancer: No Family Medical History - Family Medical History No Significant Family History Ethnicity: Pt declinded to provide Review of Systems General: Denies: Fever, Chills, Weakness, Fatigue Head/Eye: Denies: Headache, Head Injury/Trama, Hear Loss, Blurry Vision ENT: Denies: Nose Congestion, Nose Drainage, Epitaxis, Hoarseness, Loss Of Voice Respiratory: Confirms: Cough, Shortness of Breath, Sputum Production. Denies: Wheezing, Hemoptysis Cardiovascular: Denies: Chest Pain-Sharp, Chest Pain-Heavy, Short of Breath, Dyspnea on Exertion, Palpitations, Light Headedness, Diaphoresis, Edema Gastrointestinal: Confirms: Abdominal Pain, Constipation. Denies: Nausea, Vomiting, Diarrhea, Hematochezia, Hematemesis Genitourinary: Denies: Dysuria, Frequency, Incontinence, Hematuria, Urgency Musculoskeletal: Denies: Neck Pain, Back Pain, Leg Pain, Foot Pain Skin: Denies: Rash, Lesions, Jaundice Neurological: Denies: Weakness, Numbness, Change in Speech Physical Exam Vital Signs: Vital Signs (72 hours) 02/08/22 02/08/22 02/08/22 10:28 10:29 11:28 Temperature 98.6 F Pulse Rate 95 Pulse Rate [ 97 Window Draper ] Pulse Rate [Pre - Resp. Treatment] Respiratory 14 Rate Respiratory Rate [Pre- Resp . Treatment] Blood Pressure Blood Pressure 139/104 H [Left Arm] O2 Sat by Pulse 93 92 L 95 Oximetry(%) 02/08/22 02/08/22 02/08/22 11:30 11:40 11:50 Temperature Pulse Rate 95 95 96 Pulse Rate [ Window Draper ] Pulse Rate [Pre - Resp. Treatment] Respiratory Rate Respiratory Rate [Pre- Resp . Treatment] Blood Pressure Blood Pressure [Left Arm] O2 Sat by Pulse 92 L 91 L 92 L Oximetry(%) 02/08/22 02/08/22 02/08/22 12:00 12:10 12:20 Temperature Pulse Rate 96 95 94 Pulse Rate [ Window Draper ] Pulse Rate [Pre - Resp. Treatment] Respiratory Rate Respiratory Rate [Pre- Resp . Treatment] Blood Pressure 142/108 H Blood Pressure [Left Arm] O2 Sat by Pulse 93 92 L 92 L Oximetry(%) 02/08/22 02/08/22 02/08/22 12:30 12:40 12:50 Temperature Pulse Rate 92 92 92 Pulse Rate [ Window Draper ] Pulse Rate [Pre - Resp. Treatment] Respiratory Rate Respiratory Rate [Pre- Resp . Treatment] Blood Pressure Blood Pressure [Left Arm] O2 Sat by Pulse 93 94 93 Oximetry(%) 02/08/22 02/08/22 02/08/22 13:00 13:01 13:10 Temperature Pulse Rate 99 91 96 Pulse Rate [ Window Draper ] Pulse Rate [Pre - Resp. Treatment] Respiratory Rate Respiratory Rate [Pre- Resp . Treatment] Blood Pressure 145/107 H 138/95 H Blood Pressure [Left Arm] O2 Sat by Pulse 93 94 93 Oximetry(%) 02/08/22 02/08/22 02/08/22 13:20 13:30 13:40 Temperature Pulse Rate 94 92 98 Pulse Rate [ Window Draper ] Pulse Rate [Pre - Resp. Treatment] Respiratory Rate Respiratory Rate [Pre- Resp . Treatment] Blood Pressure Blood Pressure [Left Arm] O2 Sat by Pulse 92 L 91 L 92 L Oximetry(%) 02/08/22 02/08/22 02/08/22 13:50 14:00 14:10 Temperature Pulse Rate 92 92 98 Pulse Rate [ Window Draper ] Pulse Rate [Pre - Resp. Treatment] Respiratory Rate Respiratory Rate [Pre- Resp . Treatment] Blood Pressure 142/99 H Blood Pressure [Left Arm] O2 Sat by Pulse 94 93 92 L Oximetry(%) 02/08/22 02/08/22 02/08/22 14:20 14:30 14:35 Temperature Pulse Rate 91 98 Pulse Rate [ Window Draper ] Pulse Rate [Pre 92 - Resp. Treatment] Respiratory Rate Respiratory 16 Rate [Pre- Resp . Treatment] Blood Pressure Blood Pressure [Left Arm] O2 Sat by Pulse 93 93 96 Oximetry(%) 02/08/22 02/08/22 14:40 14:50 Temperature Pulse Rate 89 91 Pulse Rate [ Window Draper ] Pulse Rate [Pre - Resp. Treatment] Respiratory Rate Respiratory Rate [Pre- Resp . Treatment] Blood Pressure Blood Pressure [Left Arm] O2 Sat by Pulse 95 98 Oximetry(%) General: Yes: Alert, Oriented, Cooperative/Pleasant, Mild distress HEENT: Yes: Atraumatic, PERRLA, Mucous membr. moist/pink, EOMI Lungs: Yes: Normal air movement, Labored, Rhonchi, Diminished. No: Wheezing, Rales Cardiovascular: Yes: Regular rate, Normal S2, Normal S1, No murmurs Abdomen: Yes: Soft, Large/Obese, Tenderness Noted (RUQ, mid abdomen), Other (bowel sounds present but hypoactive). No: Distended, Rigid, Rebound Tenderness, Hepatospenomegaly Extremities: Yes: No tenderness/swelling, Normal pulses. No: Clubbing, Cyanosis, Bilateral Leg Edema Skin: No: Rashes, Skin Breakdown, Significant lesions, Open Wound Present Neurological: Yes: Normal Gait, Speech Clear, Strength Normal X4 ext, Cranial nerves 3-12 NL, Cognitive Ability Intact Psych/Mental Status: Yes: Mental status NL, Mood Appropriate. No: Anxious, Hallucinations Genitourinary/Rectal: Yes: Voiding Impressions - Problems (1) Severe sepsis Status: Acute Current Visit: Yes (2) CAP (community acquired pneumonia) Status: Acute Current Visit: Yes (3) Gallbladder hydrops Status: Acute Current Visit: Yes (4) Rectal inflammation Status: Acute Current Visit: Yes (5) Lactic acidosis Status: Acute Current Visit: Yes (6) Obesity Status: Acute Current Visit: Yes (7) History of stroke Status: Acute Current Visit: Yes (8) Transaminitis Status: Acute Current Visit: Yes Plan/Treatment Plan: assessment severe sepsis CAP rectal inflammation/infection gallbladder hydrops lactic acidosis acute on chronic constipation transaminitis/elevated alk phos history of stroke/craniectomy [address] 2 seizure d/o depression/anxiety BPH plan continue iv hydration, cycle lactic acid til normal, obtain RUQ US, obtain 12L EKG continue piperacillin tazobactam f/u blood cultures, sputum cx, covid-19 pcr, influenza follow liver enzymes, renal fxn trend, i/os, daily wts general surgery consult, discussed w dr long, anticipate endoscopic eval/possible cholecystectomy give senna-s, miralax, prn maalox, prn morphine for severe pain, antiemetics prn give tamsulosin, finasteride continue home keppra, amlodipine iv famotidine for gi prophy sq enoxaparin for dvt prophy patient and brother/HPOA extensively advised New Orders: New Orders-Lab 02/09/22 04:00 Basic Metabolic Panel [CHM] DAILY@0400 CBC w/Auto Differential [HEM] DAILY@0400 Magnesium [CHM] Routine 02/10/22 04:00 Basic Metabolic Panel [CHM] DAILY@0400 CBC w/Auto Differential [HEM] DAILY@0400 02/11/22 04:00 Basic Metabolic Panel [CHM] DAILY@0400 CBC w/Auto Differential [HEM] DAILY@0400 New Orders-Nursing Care 02/08/22 15:18 NPO after Midnight [RC] ONE 02/08/22 15:28 NPO [Nothing Per Oral] [DIET] Medications 02/08/22 15:06 Acetaminophen [Tylenol 325 mg Tablet] 650 mg PO Q6H PRN 02/08/22 15:29 Mag Hydrox/Al Hydrox/Simeth [Mylanta/Maalox Generic Liquid] 30 ml PO Q6H PRN 02/08/22 16:00 Amlodipine Besylate [Norvasc 5 mg Tablet] 5 mg PO DAILY Enoxaparin Sodium [Lovenox 30 mg/0.3 ml Injection] 30 mg SQ Q24H Polyethylene Glycol 3350 [Miralax Packet 17 gm] 17 gm PO DAILY Sennosides/Docusate Sodium [Senokot S Tablet] 1 tab PO BID 02/08/22 20:00 Famotidine/Pf [Pepcid 20 mg/2 ml Injection] 20 mg IVP BID Levetiracetam [Keppra 500 mg Tablet] 500 mg PO BID Piperacillin Sodium/Tazobactam [Zosyn 3.375 gm Injection] 3.375 gm Normal Saline [Sodium Chloride 0.9 % 50 ml] 50 ml IVPB Q6H 02/08/22 22:00 Baclofen [Lioresal 10 mg Tablet] 10 mg PO TID Cyclobenzaprine HCl [Flexeril 10 mg Tablet] 10 mg PO TID 02/09/22 09:00 Citalopram Hydrobromide [Celexa 10 mg Tablet] 10 mg PO DAILY Duloxetine HCl [Drizalma Sprinkle] 60 mg PO DAILY Electronically Generated By:BELLA GREEN MD Generated Date/Time: 02/08/22 1532 Electronically Signed By: BELLA GREEN MD Signed Date/Time 02/08/22 1640 Co Signed Electronically By: Co Signed Date/Time: CC: BORA LONG MD; TERESA ROMEO MD [facility] Work Phone: [phone] 927-862508-04-2022 Discharge summary Author GUZMAN LYNN [facility] February 08, 2022 2:25pm Note Date/Time February 08, 2022 11: 19am [facility] [address] [place] [id number] HEALTH INFORMATION MANAGEMENT EMERGENCY DEPARTMENT : [id number] Signed Patient: JOHNATHAN GONZALEZ Acct:[id number] MRUN: [id number] : 1975 Sex: M Loc: ED AD M Date: 02/08/22 Room/Bed: DISC Date: History of Present Illness - General Chief Complaint: Abdominal/GI Complaints Stated Complaint: abdominal pain Symptom onset: A FEW DAYS AGO HPI: EMS CALLED TO [facility] FOR A PATIENT C/O ABDOMINAL PAIN. PER SNF STAFF PATIENT HAD NOT MOVED HIS BOWELS X2 DAYS. PATIENT WOKE UP THIS AM WITH ABDOMINAL PAIN AND NAUSEA. PATIENT A/O TO SELF AND THIS IS WNL PER SNF. Time Seen by Provider: 02/08/22 10:30 Nurses Notes Reviewed and Agreed With?: Yes EMS Run Sheet Reviewed: Not available @ present Source: Patient, EMS Mode of Transport: Squad-[facility] - History of Present Illness Initial Comments: 47-year-old male who arrives from [facility] with complaints of abdominal pain. Per SNF patient has not moved his bowels for 2 days. Patient woke up this morning with abdominal pain nausea. Patient states he denies any vomiting diarrhea. Denies any fever chills. He is complaining of diffuse abdominal painmainly on the right versus the left. Pt with history of MRRosa Limited history from patient. MD Complaint: abdominal pain (abd pain/nausea/lack of BM) Onset/Timin -: days(s) Location: diffuse Radiation: none Migration to: periumbilical Severity: mild, moderate Severity scale (1-10): 5 Quality: cramping, aching Consistency: intermittent Improves With: nothing Worsens With: eating, vomiting Context: denies: foreign travel, possible food poisoning, sick contacts, recent antibiotic use, recent surgery/procedure, recent injury Associated Symptoms: nausea, vomiting, constipation. denies: diarrhea, fever, chills, steatorrhea, mucous, change in caliber of stool, dysuria, hematemesis, hematochezia, melena, hematuria, anorexia, syncope Treatments Prior to Arrival: None - Related Data Home Medications Medication Instructions Recorded Confirmed Acetaminophen [Aphen] 650 mg PO Q4H PRN 02/08/22 02/08/22 Amlodipine Besylate [Norvasc] 5 mg PO DAILY 02/08/22 02/08/22 Baclofen [Baclofen 10 mg Tablet] 10 mg PO TID 02/08/22 02/08/22 Bisacodyl [Onelax] 10 mg RC Q24H PRN 02/08/22 02/08/22 Cholecalciferol (Vitamin D3) 1 capsule PO DAILY 02/08/22 02/08/22 [D3-50] Citalopram Hydrobromide [Celexa 10 10 mg PO DAILY 02/08/22 02/08/22 mg Tablet] Cyclobenzaprine HCl [Flexeril 10 10 mg PO TID 02/08/22 02/08/22 mg Tablet] Duloxetine HCl [Drizalma Sprinkle] 60 mg PO DAILY 02/08/22 02/08/22 Famotidine [Pepcid AC] 10 mg PO DAILY 02/08/22 02/08/22 Levetiracetam [Keppra] 500 mg PO BID 02/08/22 02/08/22 Mag Hydrox/Al Hydrox/Simeth 30 ml PO Q6H 02/08/22 02/08/22 [Mylanta/Maalox Generic Liquid 30 ml] Magnesium Hydroxide [Milk of 30 ml PO Q24H PRN 02/08/22 02/08/22 Magnesia] Melatonin 5 mg PO QHS 02/08/22 02/08/22 Menthol [Biofreeze] 1 applic TP BID 02/08/22 02/08/22 Oxycodone HCl [Roxicodone] 5 mg PO Q12H PRN 02/08/22 02/08/22 Polyethylene Glycol 3350 [Miralax 1 applic PO DAILY 02/08/22 02/08/22 Packet 17 gm] Rivastigmine Tartrate 4.5 mg PO DAILY 02/08/22 02/08/22 [Rivastigmine] Sennosides [Angela-Sue] 2 tab PO BID 02/08/22 02/08/22 Allergies Allergy/AdvReac Type Severity Reaction Status Date / Time No Known Allergies Allergy Verified 04/26/19 04:44 Home medications and allergies reviewed: Yes Review of System - Constitutional Constitutional: Present: see HPI, Well developed, Well nourished, well hydrated,Non-toxic, Obese, other (abd pain/nausea/lack of BM). Absent: fever - Nose,Throat,Mouth Nose (ROS): Present: no symptoms reported. Absent: clots, pain Throat: Present: no symptoms reported. Absent: pain, swelling, discharge Mouth: Present: no symptoms reported. Absent: clots, pain, swelling - Respiratory Respiratory: Absent: cough, short of breath, wheezing - CV Cardiology: Absent: chest pain, edema - GI Gastrointestinal/Abdominal: Present: see HPI, abdominal pain, constipation, nausea. Absent: diarrhea, vomiting - Genitourinary Symptoms: Absent: dysuria, pain, urgency - Neuro Neurological: Present: see HPI, anxiety, emotional problems, pre-existing deficit. Absent: headache, weakness - Muskuloskeletal Musculoskeletal: Absent: back pain, joint pain, joint swelling - Integumentary Skin: Absent: lesions, rash - Allergic/Immunologic Immunological/Allergic: Present: no symptoms reported - Hematologic Hematologic/Lymphatic: Absent: easy bleeding, easy bruising, swollen glands - Endocrine Endocrine: Present: no symptoms reported - Psychiatric Psychiatric: Present: Normal Affect, Normal Mood, Anxious. Absent: Depressed - All Others/Exceptions All Other Systems: Reviewed and Negative Except Where Noted in Documentation Unable To Obtain Complete ROS,HPI,PMH,FH,SH Due To:: AMS ED PMH/Social HX/Family HX - Respiratory Hx Respiratory Disorders: No - Cardiovascular Hx Cardiac Disorders: Yes PMH--Cardiovascular: HTN - Neurological Hx Neurological Disorder: Yes PMH--Neurological: Headaches - Endocrine Hx Endocrine Disorders: No - Gastrointestinal Hx Gastrointestinal Disorders: No - Genitourinary Hx Genitourinary Disorders: No - Musculoskeletal Hx Musculoskeletal Disorders: Yes Other MS PMH: back pain - Reproductive Hx Reproductive Disorders: No - Psychological Hx Psychosocial Problems: No PMH--Psychological & Treatments: Anxiety, Depression - HEENT Hx Ear, Nose Throat Disorders: No - Cancer Hx Cancer: No - Social History Lives with: Nursing Facility Able to Read: Yes Able to Write: Yes Smoking Status: Never Smoked Hx Chewing Tobacco Use: No Alcohol Use: Never Any recreational drug use reported?: No Feels Threatened In Home Environment: No Feels Threatened In a Relationship: No - Family PMH No Significant Family History Ethnicity: Pt declinded to provide - [place]/Gender ID What is your current Gender Identity? Choose all that Apply: Male Define your Sexual Orientation?: Straight/Heterosexual - [place]-Suicide Severity Rating Scale 1) Wish to be :: No 2) Suicidal Thoughts:: No 6) Suicidal Behavior Question (A): LIFETIME: No 6) Suicidal Behavior Question (B): PAST 3 MONTHS: No General Exam - General Limitations: Complains of: no limitations Constitutional: Present: see HPI, Well developed, Well nourished, well hydrated,Non-toxic, Obese, other (abd pain/nausea/lack of BM) - Head Head exam: Present: atraumatic, normocephalic, normal inspection - Eye Eye exam: Present: normal apperance, normal accomodation, EOMI Pupils: Present: PERRL - ENT ENT exam: Present: normal orophraynx, TMs clear w/ good light reflex, mucous membranes moist, No Nasal Discharge, normal external ear exam, Posterior PharynxNon-erethemetous. Absent: Posterior Pharynx Erethemetous - Neck Neck exam: Present: full ROM, Supple. Absent: tenderness, meningismus, Posterior Lymphadenopathy, Anterior Lymphadenopathy - Respiratory Respiratory exam: Present: lungs clear and equal bilaterally. Absent: respiratory distress, wheezes, rales, rhonchi, decreased breath sounds, accessory muscle use, chest wall tenderness, prolonged expiratory phase - Cardiovascular Cardiovascular Exam: Present: regular rate, normal rhythm, normal heart sounds. Absent: murmur, rubs, gallop, clicks - GI/Abdominal GI/Abdominal exam: Present: soft, distended, normal bowel sounds, tenderness. Absent: guarding, rebound, rigid, organomegaly, mass, bruit - Rectal Rectal exam: Present: deferred - Extremities Exam Extremities exam: Present: normal inspection, neurovascularly intact, full ROM, normal reflexes, normal/equal pulses. Absent: tenderness - Back Exam Back exam: Present: normal inspection, full ROM. Absent: tenderness, CVA tenderness (R), CVA tenderness (L), cervical tenderness, thoracic tenderness, lumbar tenderness - Neurological Exam Neurological exam: Present: alert, oriented X3, CN II-XII intact, normal gait - Psychiatric Psychiatric exam: Present: normal affect, normal mood, anxious - Skin Skin Color: Present: Normal, [place]. Absent: Rash Skin exam: Present: warm, dry - Vital Signs Vital Signs 02/08/22 02/08/22 02/08/22 10:28 10:29 11:28 Temperature 98.6 F Pulse Rate 95 Pulse Rate [ 97 Window Draper ] Respiratory 14 Rate Blood Pressure Blood Pressure 139/104 H [Left Arm] O2 Sat by Pulse 93 92 L 95 Oximetry(%) 02/08/22 02/08/22 02/08/22 11:30 11:40 11:50 Temperature Pulse Rate 95 95 96 Pulse Rate [ Window Draper ] Respiratory Rate Blood Pressure Blood Pressure [Left Arm] O2 Sat by Pulse 92 L 91 L 92 L Oximetry(%) 02/08/22 02/08/22 02/08/22 12:00 12:10 12:20 Temperature Pulse Rate 96 95 94 Pulse Rate [ Window Draper ] Respiratory Rate Blood Pressure 142/108 H Blood Pressure [Left Arm] O2 Sat by Pulse 93 92 L 92 L Oximetry(%) 02/08/22 02/08/22 02/08/22 12:30 12:40 12:50 Temperature Pulse Rate 92 92 92 Pulse Rate [ Window Draper ] Respiratory Rate Blood Pressure Blood Pressure [Left Arm] O2 Sat by Pulse 93 94 93 Oximetry(%) 02/08/22 02/08/22 13:00 13:01 Temperature Pulse Rate 99 91 Pulse Rate [ Window Draper ] Respiratory Rate Blood Pressure 145/107 H 138/95 H Blood Pressure [Left Arm] O2 Sat by Pulse 93 94 Oximetry(%) Course - Reevaluation(s) Reevaluation #1: 02/08/22 11:20 IV placed IV bolus normal saline. Patient given 4 mg Zofran and Toradol 30 mg IV. Lab work urinalysis CT scan abdomen pelvis without contrast pending. Abdominal pain MDM - Lab Data Result diagrams: 02/08/22 11:10 02/08/22 11:10 Lab Results 02/08/22 02/08/22 02/08/22 Range/Units 11:10 11:10 11:10 WBC 19.0 H (3.6-10.8) K/uL RBC 5.12 (4.13-5.69) M/uL Hgb 15.2 (12.4-17.3) g/dL Hct 45.5 (36.7-50.6) % MCV 88.9 (80.0-94.0) fL MCH 29.7 (27.0-31.0) pg MCHC 33.4 (33.0-37.0) g/dL RDW 13.0 (11.5-14.5) % Plt Count 247 (148-402) K/uL MPV 8.7 (7.4-10.4) fL Neut % (Auto) 89.7 H (43.0-65.0) % Lymph % (Auto) 5.2 L (17.0-45.5) % [place] % (Auto) 4.6 L (5.5-11.7) % Eos % (Auto) 0.1 L (0.9-2.9) % Baso % (Auto) 0.2 (0.2-1.0) % Abs Immat Gran (man) 0.03 (0.00-0.10) K/uL Absolute Neuts (auto) 17.08 H (2.20-4.80) K/uL Absolute Lymphs (auto) 1.00 L (1.30-2.90) K/uL Absolute Monos (auto) 0.90 H (0.30-0.80) K/uL Absolute Eos (auto) 0 (0.00-0.20) K/uL Absolute Basos (auto) 0.04 (0.00-0.10) K/uL Immature Gran % 0.20 (0.00-1.00) % PT < 8.9 (8.9-12.2) sec APTT 24.9 (19.5-32.1) sec Sodium 140 (132-145) mmol/L Potassium 3.9 (3.3-5.1) mmol/L Chloride 101 (94-110) mmol/L Total Carbon Dioxide 31 (21-34) mmol/L Anion Gap 11.9 (8.0-16.0) mmol/L BUN 10.7 (3.2-26.9) mg/dL Creatinine 1.14 (0.50-1.17) mg/dL Est GFR (MDRD) Af Amer > 60 (>60) Est GFR (MDRD) Non-Af > 60 (>60) BUN/Creatinine Ratio 9 (6-20) Glucose 139 H (65-100) mg/dL Plasma Lactic Acid Peterson (0.4-2.0) mmol/L Calcium 9.2 (8.2-10.0) mg/dL Total Bilirubin 0.44 (0.00-0.99) mg/dL AST 30 (3-39) U/L ALT 92 H (13-66) U/L Alkaline Phosphatase 152 H (54-112) U/L Total Protein 7.5 (6.1-8.2) g/dL Albumin 3.0 L (3.4-5.0) g/dL Globulin 4.5 (1.5-4.5) g/dL Albumin/Globulin Ratio 0.7 L (1.1-2.5) Amylase 55 (25-115) U/L Lipase 79 (65-230) U/L 02/08/22 Range/Units 11:10 WBC (3.6-10.8) K/uL RBC (4.13-5.69) M/uL Hgb (12.4-17.3) g/dL Hct (36.7-50.6) % MCV (80.0-94.0) fL MCH (27.0-31.0) pg MCHC (33.0-37.0) g/dL RDW (11.5-14.5) % Plt Count (148-402) K/uL MPV (7.4-10.4) fL Neut % (Auto) (43.0-65.0) % Lymph % (Auto) (17.0-45.5) % Broome % (Auto) (5.5-11.7) % Eos % (Auto) (0.9-2.9) % Baso % (Auto) (0.2-1.0) % Abs Immat Gran (man) (0.00-0.10) K/uL Absolute Neuts (auto) (2.20-4.80) K/uL Absolute Lymphs (auto) (1.30-2.90) K/uL Absolute Monos (auto) (0.30-0.80) K/uL Absolute Eos (auto) (0.00-0.20) K/uL Absolute Basos (auto) (0.00-0.10) K/uL Immature Gran % (0.00-1.00) % PT (8.9-12.2) sec APTT (19.5-32.1) sec Sodium (132-145) mmol/L Potassium (3.3-5.1) mmol/L Chloride (94-110) mmol/L Total Carbon Dioxide (21-34) mmol/L Anion Gap (8.0-16.0) mmol/L BUN (3.2-26.9) mg/dL Creatinine (0.50-1.17) mg/dL Est GFR (MDRD) Af Amer (>60) Est GFR (MDRD) Non-Af (>60) BUN/Creatinine Ratio (6-20) Glucose (65-100) mg/dL Plasma Lactic Acid Peterson 2.4 H* (0.4-2.0) mmol/L Calcium (8.2-10.0) mg/dL Total Bilirubin (0.00-0.99) mg/dL AST (3-39) U/L ALT (13-66) U/L Alkaline Phosphatase (54-112) U/L Total Protein (6.1-8.2) g/dL Albumin (3.4-5.0) g/dL Globulin (1.5-4.5) g/dL Albumin/Globulin Ratio (1.1-2.5) Amylase (25-115) U/L Lipase (65-230) U/L Orders: Medications Metronidazole (Flagyl 500 Mg Premix) 500 mg in 100 mls @ 100 mls/hr IVPB Q8H STA Stop: 02/08/22 14:27 Last Admin: 02/08/22 13:51 Dose: 100 mls/hr, 100 mls/hr Documented by: [email or web address] Discontinued Medications Sodium Chloride (Sodium Chloride 0.9 % 1000 Ml) 1,000 mls @ 999 mls/hr IV .Q1H1M STA Stop: 02/08/22 11:50 Last Infusion: 02/08/22 12:15 Dose: 0 mls/hr Documented by: [email or web address] Sodium Chloride (Sodium Chloride 0.9 % 1000 Ml) 1,000 mls @ 999 mls/hr IV .Q1H1M STA Stop: 02/08/22 11:50 Last Infusion: 02/08/22 13:45 Dose: 0 mls/hr Documented by: [email or web address] Ketorolac Tromethamine (Ketorolac Tromethamine 30 Mg/Ml Injection) 30 mg IVP STAT STA Stop: 02/08/22 10:51 Last Admin: 02/08/22 11:12 Dose: 30 mg Documented by: [email or web address] Labs 02/08/22 10:44 Resuscitation Status Order Routine 02/08/22 10:50 Culture Blood [MIC2] Stat Culture Blood [MIC2] Stat PT [COA] Stat PTT [COA] Stat UA and reflex culture [URN] Stat Ketorolac Tromethamine [Toradol 30 mg/ml Injection] 30 mg IVP STAT STA Normal Saline 0.9% 1000 ml [Sodium Chloride 0.9 % 1000 ml] 1,000 ml IV 999 mls/hr Normal Saline 0.9% 1000 ml [Sodium Chloride 0.9 % 1000 ml] 1,000 ml IV 999 mls/hr 02/08/22 10:51 ED-IV [RC] ONE CT ABD/PELVIS W/O [CT] Stat 02/08/22 11:10 Amylase [CHM] Stat CBC w/Auto Differential [HEM] Stat Comprehensive Metabolic Panel [CHM] Stat Lactic Acid (Venous) [CHM] Q2H Lipase [CHM] Stat 02/08/22 11:21 Lactic Acid Nursing Reassessment [RC] Q2HX2 02/08/22 13:27 Piperacillin Sodium/Tazobactam [Zosyn 3.375 gm Injection] 3.375 gm Normal Saline [Sodium Chloride 0.9 % 50 ml] 50 ml IVPB Q6H 02/08/22 13:28 Metronidazole/Sodium Chloride [Flagyl 500 mg Premix] 500 mg in 100 ml IVPB Q8H 02/08/22 13:57 COVID19 Discontinue of Isolation [RC] PRN Isolation/Precautions [RC] QS 02/08/22 14:11 Influenza A&B (Rapid) [IMM] Stat Novel Coronavirus CoVid-19 [REF] Stat SARS Antigen (Rapid) [CHM] Stat - Radiology Data Radiology Report: Radiology report reviewed,see report for findings IMPRESSIONS Abdomen/Pelvis CT 02/08/22 10:51 IMPRESSION: Posterior and posterolateral bowel wall thickening of the distal rectum cannot be excluded and may reflect an inflammatory/infectious process or neoplastic disease. Further endoscopic evaluation is recommended. Gallbladder hydrops. Further sonographic evaluation of the gallbladder is recommended. Lingular and bilateral lower lobe infiltrates, bronchiectasis and peribronchial thickening likely due to infection. Cardiomegaly with minimal pericardial effusion. Prostate enlargement. - Medical Decision Making 47-year-old male who arrives from [facility] with complaints of abdominal pain. Per SNF patient has not moved his bowels for 2 days. Patient woke up this morning with abdominal pain nausea. Patient states he denies any vomiting diarrhea. Denies any fever chills. He is complaining of diffuse abdominal pain mainly on the right versus the left. Pt with history of MR. Limited history from patient. IV placed IV bolus normal saline. Patient given 4 mg Zofran and Toradol 30 mg IV. Lab work urinalysis CT scan abdomen pelvis without contrast pending. Work reviewed white count 19,000 with left shift. Electrolytes normal. Lactic acid of 2.4. Alk phos 152. Lipase normal. Coags normal. CT scan abdomen pelvis without contrast shows posterior and posterior lateral bowel wall thickening of the distal rectum which cannot exclude inflammatory infectious or neoplastic process further endoscopic evaluation is recommended. Lingular and bilateral lower lobe infiltrates, bronchiectasis and peribronchial thickening likely due to an infection. Cardiomegaly with minimal pericardial effusion. Discussed case with Dr. Green for admission. Patient will be started on Zosyn and Flagyl IV. Also discussed case with Dr. Long general surgery regarding the inflammatory rectal changes patient will likely need a colonoscopy as well. Patient to be admitted. Orders completed transferred to the floor in stable condition. - Differential Diagnosis Differential DX Abdominal pain: Considered: AAA, Appendicitis, Constipation, Gastroenteritis, hepatitis, Inflammatory bowel disease, Intussusception, Ischemic bowel, Neoplasm, PUD, Renal/ureteral calculi, Gonadal torsion, Diverticulitis, UTI, Volvulus, AMI, Pancreatitis, Perforated peptic ulcer, Perforated viscus, Early appendicitis, Bowel obstruction, Cholecystitis ED Discharge Summary - Discharge Data Clinical Impression: Inflammation of the rectum, Pneumonia, Lower abdominal pain, Leukocytosis Condition: Fair Disposition: 09 ADMITTED INPATIENT Admit is Medically Necessary, Anticipated Stay >2 Midnights:: Yes Admission/OVS: Admit as Inpatient Discussed Admit/OVS with-Accepts Patient: BELLA GREEN Referrals: TERESA ROMEO MD [Primary Care Provider] - Home Medications: Ambulatory Orders Medication Instructions Recorded Acetaminophen [Aphen] 650 mg PO Q4H PRN 02/08/22 Amlodipine Besylate [Norvasc] 5 mg PO DAILY 02/08/22 Baclofen [Baclofen 10 mg Tablet] 10 mg PO TID 02/08/22 Bisacodyl [Onelax] 10 mg RC Q24H PRN 02/08/22 Cholecalciferol (Vitamin D3) 1 capsule PO DAILY 02/08/22 [D3-50] Citalopram Hydrobromide [Celexa 10 10 mg PO DAILY 02/08/22 mg Tablet] Cyclobenzaprine HCl [Flexeril 10 10 mg PO TID 02/08/22 mg Tablet] Duloxetine HCl [Drizalma Sprinkle] 60 mg PO DAILY 02/08/22 Famotidine [Pepcid AC] 10 mg PO DAILY 02/08/22 Levetiracetam [Keppra] 500 mg PO BID 02/08/22 Mag Hydrox/Al Hydrox/Simeth 30 ml PO Q6H 02/08/22 [Mylanta/Maalox Generic Liquid 30 ml] Magnesium Hydroxide [Milk of 30 ml PO Q24H PRN 02/08/22 Magnesia] Melatonin 5 mg PO QHS 02/08/22 Menthol [Biofreeze] 1 applic TP BID 02/08/22 Oxycodone HCl [Roxicodone] 5 mg PO Q12H PRN 02/08/22 Polyethylene Glycol 3350 [Miralax 1 applic PO DAILY 02/08/22 Packet 17 gm] Rivastigmine Tartrate 4.5 mg PO DAILY 02/08/22 [Rivastigmine] Sennosides [Angela-Sue] 2 tab PO BID 02/08/22 Home medications and allergies reviewed: Yes Time Seen by Provider: 02/08/22 10:30 - Consultation I saw and examined the patient: Yes Nurses Notes Reviewed and Agreed With?: Yes - Dictation Amendments/Documentation: [facility] Electronically Generated By:GUZMAN LYNN DO Generated Date/Time: 02/08/22 1111 Electronically Signed By: GUZMAN LYNN DO Signed Date/Time 02/08/22 1425 Co Signed Electronically By: Co Signed Date/Time: CC: TERESA ROMEO MD [facility] Work Phone: [phone] 760-854611-22-2021 Hospital Discharge instructions Patient Education 05/29/2021 09:02:58 Seizure, Adult Seizure, Adult A seizure is a sudden burst of abnormal electrical activity in the brain. Seizures usually last from 30 seconds to 2 minutes. The abnormal activity temporarily interrupts normal brain function. A seizure can cause many different symptoms depending on where in the brain it starts. What are the causes? Common causes of this condition include: Fever or infection. Brain abnormality, injury, bleeding, or tumor. Low blood sugar. Metabolic disorders or other conditions that are passed from parent to child (are inherited). Reaction to a substance, such as a drug or a medicine, or suddenly stopping the use of a substance (withdrawal). Stroke. Developmental disorders such as autism or cerebral palsy. In some cases, the cause of this condition may not be known. Some people who have a seizure never have another one. Seizures usually do not cause brain damage or permanent problems unless they are prolonged. A person who has repeated seizures over time without a clear cause has a condition called ep ilepsy. What increases the risk? You are more likely to develop this condition if you have: A family history of epilepsy. Had a tonic-clonic seizure in the past. This is a type of seizure that involves whole-body contraction of muscles and a loss of consciousness. Autism, cerebral palsy, or other brain disorders. A history of head trauma, lack of oxygen at , or strokes. What are the signs or symptoms? There are many different types of seizures. The symptoms of a seizure vary depending on the type ofseizure you have. Examples of symptoms during a seizure include: Uncontrollable shaking (convulsions). Stiffening of the body. Loss of consciousness. Head nodding. Staring. Not responding to sound or touch. Loss of bladder or bowel control. Some people have symptoms right before a seizure happens (aura) and right after a seizure happens (postictal). Symptoms before a seizure may include: Fear or anxiety. Nausea. Feeling like the room is spinning (vertigo). A feeling of having seen or heard something before (d j vu). Odd tastes or smells. Changes in vision, such as seeing flashing lights or spots. Symptoms after a seizure may include: Confusion. Sleepiness. Headache. Weakness on one side of the body. How is this diagnosed? This condition may be diagnosed based on: A description of your symptoms. Video of your seizures can be helpful. Your medical history. A physical exam. You may also have tests, including: Blood tests. CT scan. MRI. Electroencephalogram (EEG). This test measures electrical activity in the brain. An EEG can predictwhether seizures will return (recur). A spinal tap (also called a lumbar puncture). This is the removal and testing of fluid that surrounds the brain and spinal cord. How is this treated? Most seizures will stop on their own in under 5 minutes, and no treatment is needed. Seizures that last longer than 5 minutes will usually need treatment. Treatment can include: Medicines given through an IV. Avoiding known triggers, such as medicines that you take for another condition. Medicines to treat epilepsy (antiepileptics), if epilepsy caused your seizures. Surgery to stop seizures, if you have epilepsy that does not respond to medicines. Follow these instructions at home: Medicines Take ncio-qed-jdqbjxo and prescription medicines only as told by your health care provider. Avoid any substances that may prevent your medicine from working properly, such as alcohol. Activity Do not drive, swim, or do any other activities that would be dangerous if you had another seizure. Wait until your health care provider says it is safe to do them. If you live in the [place] check with your local DMV (department of [employer]) to find out aboutlocal driving laws. Each state has specific rules about when you can legally return to driving. Get enough rest. Lack of sleep can make seizures more likely to occur. Educating others Teach friends and family what to do if you have a seizure. They should: Lay you on the ground to prevent a fall. Cushion your head and body. Loosen any tight clothing around your neck. Turn you on your side. If vomiting occurs, this helps keep your airway clear. Not hold you down. Holding you down will not stop the seizure. Not put anything into your mouth. Know whether or not you need emergency care. For example, they should get help right away if you have a seizure that lasts longer than 5 minutes or have several seizures in a row. Stay with you until you recover. General instructions Contact your health care provider each time you have a seizure. Avoid anything that has ever triggered a seizure for you. Keep a seizure diary. Record what you remember about each seizure, especially anything that might have triggered the seizure. Keep all follow-up visits as told by your health care provider. This is important. Contact a health care provider if: You have another seizure. You have seizures more often. Your seizure symptoms change. You continue to have seizures with treatment. You have symptoms of an infection or illness. This might increase your risk of having a seizure. Get help right away if: You have a seizure that: ?Lasts longer than 5 minutes. ?Is different than previous seizures. ?Leaves you unable to speak or use a part of your body. ?Makes it harder to breathe. You have: ?A seizure after a head injury. ?Multiple seizures in a row. ?Confusion or a severe headache right after a seizure. You do not wake up immediately after a seizure. You injure yourself during a seizure. These symptoms may represent a serious problem that is an emergency. Do not wait to see if the symptoms will go away. Get medical help right away. Call your local emergency services (911 in the [place] Do not drive yourself to the hospital. Summary Seizures are caused by abnormal electrical activity in the brain. The activity disrupts normal brain function and can cause various symptoms, such as convulsions, abnormal movements, or a change in consciousness. There are many causes of seizures, including illnesses, medicines, genetic conditions, head injuries, strokes, tumors, substance abuse, or substance withdrawal. Most seizures will stop on their own in under 5 minutes. Seizures that last longer than 5 minutes are a medical emergency and require immediate treatment. Many medicines are used to treat seizures. Take nbar-dki-bplqgux and prescription medicines only astold by your health care provider. This information is not intended to replace advice given to you by your health care provider. Make sure you discuss any questions you have with your health care provider. Document Released: 06/21/2001 Document Revised: 09/11/2019 Document Reviewed: 09/11/2019 [employer] Patient Education 2020 [employer]. 05/29/2021 09:02:36 COVID-19 COVID-19 COVID-19 is a respiratory infection that is caused by a virus called severe acute respiratory syndrome coronavirus 2 (SARS-CoV-2). The disease is also known as coronavirus disease or novel coronavirus. In some people, the virus may not cause any symptoms. In others, it may cause a serious infection. The infection can get worse quickly and can lead to complications, such as: Pneumonia, or infection of the lungs. Acute respiratory distress syndrome or ARDS. This is fluid build-up in the lungs. Acute respiratory failure. This is a condition in which there is not enough oxygen passing from thelungs to the body. Sepsis or septic shock. This is a serious bodily reaction to an infection. Blood clotting problems. Secondary infections due to bacteria or fungus. The virus that causes COVID-19 is contagious. This means that it can spread from person to person through droplets from coughs and sneezes (respiratory secretions). What are the causes? This illness is caused by a virus. You may catch the virus by: Breathing in droplets from an infected person's cough or sneeze. Touching something, like a table or a doorknob, that was exposed to the virus (contaminated) and then touching your mouth, nose, or eyes. What increases the risk? Risk for infection You are more likely to be infected with this virus if you: Live in or travel to an area with a COVID-19 outbreak. Come in contact with a sick person who recently traveled to an area with a COVID-19 outbreak. Provide care for or live with a person who is infected with COVID-19. Risk for serious illness You are more likely to become seriously ill from the virus if you: Are 65 years of age or older. Have a long-term disease that lowers your body's ability to fight infection (immunocompromised). Live in a jail or long-term care facility. Have a long-term (chronic) disease such as: ?Chronic lung disease, including chronic obstructive pulmonary disease or asthma ?Heart disease. ?Diabetes. ?Chronic kidney disease. ?Liver disease. Are obese. What are the signs or symptoms? Symptoms of this condition can range from mild to severe. Symptoms may appear any time from 2 to 14days after being exposed to the virus. They include: A fever. A cough. Difficulty breathing. Chills. Muscle pains. A sore throat. Loss of taste or smell. Some people may also have stomach problems, such as nausea, vomiting, or diarrhea. Other people may not have any symptoms of COVID-19. How is this diagnosed? This condition may be diagnosed based on: Your signs and symptoms, especially if: ?You live in an area with a COVID-19 outbreak. ?You recently traveled to or from an area where the virus is common. ?You provide care for or live with a person who was diagnosed with COVID-19. A physical exam. Lab tests, which may include: ?A nasal swab to take a sample of fluid from your nose. ?A throat swab to take a sample of fluid from your throat. ?A sample of mucus from your lungs (sputum). ?Blood tests. Imaging tests, which may include, X-rays, CT scan, or ultrasound. How is this treated? At present, there is no medicine to treat COVID-19. Medicines that treat other diseases are being used on a trial basis to see if they are effective against COVID-19. Your health care provider will talk with you about ways to treat your symptoms. For most people, the infection is mild and can be managed at home with rest, fluids, and ejuo-mtw-vpkxbgn medicines. Treatment for a serious infection usually takes places in a hospital intensive care unit (ICU). It may include one or more of the following treatments. These treatments are given until your symptoms improve. Receiving fluids and medicines through an IV. Supplemental oxygen. Extra oxygen is given through a tube in the nose, a face mask, or a villa. Positioning you to lie on your stomach (prone position). This makes it easier for oxygen to get into the lungs. Continuous positive airway pressure (CPAP) or bi-level positive airway pressure (BPAP) machine. This treatment uses mild air pressure to keep the airways open. A tube that is connected to a motor delivers oxygen to the body. Ventilator. This treatment moves air into and out of the lungs by using a tube that is placed in your windpipe. Tracheostomy. This is a procedure to create a hole in the neck so that a breathing tube can be inserted. Extracorporeal membrane oxygenation (ECMO). This procedure gives the lungs a chance to recover by taking over the functions of the heart and lungs. It supplies oxygen to the body and removes carbon dioxide. Follow these instructions at home: Lifestyle If you are sick, stay home except to get medical care. Your health care provider will tell you how long to stay home. Call your health care provider before you go for medical care. Rest at home as told by your health care provider. Do not use any products that contain nicotine or tobacco, such as cigarettes, e- cigarettes, and chewing tobacco. If you need help quitting, ask your health care provider. Return to your normal activities as told by your health care provider. Ask your health care provider what activities are safe for you. General instructions Take zvnw-bpp-pvfmgag and prescription medicines only as told by your health care provider. Drink enough fluid to keep your urine pale yellow. Keep all follow-up visits as told by your health care provider. This is important. How is this prevented? There is no vaccine to help prevent COVID-19 infection. However, there are steps you can take to protect yourself and others from this virus. To protect yourself: Do not travel to areas where COVID-19 is a risk. The areas where COVID-19 is reported change often.To identify high-risk areas and travel restrictions, check the CDC travel website: wwwnc.cdc.gov/travel/notices If you live in, or must travel to, an area where COVID-19 is a risk, take precautions to avoid infection. ?Stay away from people who are sick. ?Wash your hands often with soap and water for 20 seconds. If soap and water are not available, usean alcohol-based hand automotive sales manager. ?Avoid touching your mouth, face, eyes, or nose. ?Avoid going out in public, follow guidance from your state and local health authorities. ?If you must go out in public, wear a cloth face covering or face mask. ?Disinfect objects and surfaces that are frequently touched every day. This may include: ?Counters and tables. ?Doorknobs and light switches. ?Sinks and faucets. ?Electronics, such as phones, remote controls, keyboards, computers, and tablets. To protect others: If you have symptoms of COVID-19, take steps to prevent the virus from spreading to others. If you think you have a COVID-19 infection, contact your health care provider right away. Tell yourhealth care team that you think you may have a COVID-19 infection. Stay home. Leave your house only to seek medical care. Do not use public transport. Do not travel while you are sick. Wash your hands often with soap and water for 20 seconds. If soap and water are not available, use alcohol-based hand automotive sales manager. Stay away from other members of your household. Let healthy household members care for children andpets, if possible. If you have to care for children or pets, wash your hands often and wear a mask.If possible, stay in your own room, separate from others. Use a different bathroom. Make sure that all people in your household wash their hands well and often. Cough or sneeze into a tissue or your sleeve or elbow. Do not cough or sneeze into your hand or into the air. Wear a cloth face covering or face mask. Where to find more information Centers for Disease Control and Prevention: www.cdc.gov/coronavirus/2019-ncov/index.html World Health Organization: www.who.int/health-topics/coronavirus Contact a health care provider if: You live in or have traveled to an area where COVID-19 is a risk and you have symptoms of the infection. You have had contact with someone who has COVID-19 and you have symptoms of the infection. Get help right away if: You have trouble breathing. You have pain or pressure in your chest. You have confusion. You have bluish lips and fingernails. You have difficulty waking from sleep. You have symptoms that get worse. These symptoms may represent a serious problem that is an emergency. Do not wait to see if the symptoms will go away. Get medical help right away. Call your local emergency services (911 in the [place] Do not drive yourself to the hospital. Let the emergency medical personnel know if you think you have COVID-19. Summary COVID-19 is a respiratory infection that is caused by a virus. It is also known as coronavirus disease or novel coronavirus. It can cause serious infections, such as pneumonia, acute respiratory distress syndrome, acute respiratory failure, or sepsis. The virus that causes COVID-19 is contagious. This means that it can spread from person to person through droplets from coughs and sneezes. You are more likely to develop a serious illness if you are 65 years of age or older, have a weak immunity, live in a jail, or have chronic disease. There is no medicine to treat COVID-19. Your health care provider will talk with you about ways to treat your symptoms. Take steps to protect yourself and others from infection. Wash your hands often and disinfect objects and surfaces that are frequently touched every day. Stay away from people who are sick and wear amask if you are sick. This information is not intended to replace advice given to you by your health care provider. Make sure you discuss any questions you have with your health care provider. Document Released: 07/30/2019 Document Revised: 11/19/2019 Document Reviewed: 07/30/2019 [employer] Patient Education 2019 [employer]. Follow Up Care 05/26/2021 03:08:49 With:[facility] [phone] Address:Unknown When:1-2 days With:NOT PHYSICIAN Address:Unknown When:1-2 days [facility] 11-19-2021 Evaluation + Plan noteExtracted from: Title:Clinical Document Author:BRIEN MINER MD Date:05/26/21 [facility] Hospitalist History and Physical Date of Admission: 05/26/2021 Chief complaint: New onset seizure, COVID-19 History of present illness: History is taken from talking with emergency room physician as well as talking with the patient. Patient has a past medical history of stroke in 2019 requiring craniectomy with left-sided hemiparesis, anxiety/depression, hypertension. Patient resides at a nursing facility as he is basically wheelchair-bound since his stroke. Patient has been complaining of severe left hip pain. Pain has been present for several weeks. At the nursing facility today he had a 3 to 4-minute episode of tonic-clonic seizure-like activity. No prior history of seizures. For this reason he was sent to [place] emergency department for evaluation. Per the patient he was also diagnosed with COVID-19 close to a week ago. He has an ongoing nonproductive cough. Denies chest pain. Has intermittent fevers, chills and night sweats. CT of the head imaging at [facility] did show fluid collection next to the patient's craniectomy site with herniation and mass-effect of the brain. They did discuss the case with neurosurgery on-call who reported that this is most likely just spinal fluid and that the patient does not need any neurosurgical intervention. Since presenting to [place] emergency room the patient has had a low-grade fever 37.4, hemodynamically stable, initially 81% room air however is currently 92% on room air. Labs and imaging of note: WBC 3.8 hemoglobin 11.8 and we do not have a prior to compare. Urinalysis not concerning for infection. No concerning finding on BMP. Alkaline phosphatase 150 AST 260 ALT 254 lipase 113 high-sensitivity: 13.7. X- ray of the left hip did not show any concerning finding. CT abdomen and pelvis with contrast did not show any acute abdominal finding. CT of the head without contrast showed right decompressive hemicraniectomy. Extensive right MCA territory encephalomalacia. Right axial fluid collection with extracranial herniation and mass-effect upon the subjacent parenchymal not well delineated. Chest x-ray showed mild subsegmental atelectasis. EKG showed sinus rhythm with no ST elevation or ST depression. Past medical history: stroke in 2019 requiring craniectomy with left-sided hemiparesis, anxiety/depression, hypertension. Family history: Hypertension Social history: Denies smoking cigarettes or alcohol consumption Medications: Home Medications (18) Active, medications were not verified by pharmacy at the time of this dictation acetaminophen 500 mg oral tablet 500 mg = 1 tab(s), PRN, Oral, q6hr amLODIPine 5 mg oral tablet 5 mg = 1 tab(s), Oral, qDay aspirin 81 mg oral tablet, chewable 81 mg = 1 tab(s), Chewed, qDay bisacodyl 10 mg rectal suppository 10 mg = 1 supp, PRN, Rectal, Daily CeleXA 10 mg oral tablet 10 mg = 1 tab(s), Oral, qDay cyclobenzaprine 10 mg oral tablet 10 mg = 1 tab(s), PRN, Oral, TID dexamethasone 6 mg oral tablet 6 mg = 1 tab(s), Oral, qDay doxycycline hyclate 100 mg oral capsule 100 mg = 1 cap(s), Oral, BID DULoxetine 60 mg oral delayed release capsule 60 mg = 1 cap(s), Oral, qDay famotidine 20 mg oral tablet 20 mg = 1 tab(s), Oral, qDay GlycoLax oral powder for reconstitution 17 gram(s), Oral, Daily melatonin 5 mg oral tablet 5 mg = 1 tab(s), PRN, Oral, qHS moxifloxacin 400 mg oral tablet 400 mg = 1 tab(s), Oral, q24h oxyCODONE 5 mg oral tablet ( IMMEDIATE release ) 5 mg = 1 tab(s), PRN, Oral, q6h rivastigmine 4.5 mg oral capsule 4.5 mg = 1 cap(s), Oral, qDay senna 8.6 mg oral tablet 17.2 mg = 2 tab(s), PRN, Oral, qHS Vitamin D3 1250 mcg (50,000 intl units) oral capsule 1,250 mcg = 1 cap(s), Oral, qWeek Zofran 4 mg oral tablet 4 mg = 1 tab(s), PRN, Oral, q6h Allergies: NKA Review of systems: See HPI for pertinent positives and negatives. All other review of systems have been reviewed and they are negative. Vitals Signs(Last 24 hrs)__Last Charted Minimum Maximum Temp36.4(MAY 26 02:30)36.4(MAY 26:30)H 37.4(MAY 25:23) Heart Rate83(MAY 26 02:30)83(MAY 26 02:30)88(MAY 25 08:40) Resp Rate19(MAY 26:30)19(MAY 26 02:30)H 22(MAY 25 08:40) LER711(MAY 26:30)99(MAY 25:23)122(MAY 25 14:24) DBP74(MAY 26 02:30)70(MAY 25:23)88(MAY 25 14:24) Physical examination: HEENT: No Pallor, No Icterus Cardiac: RRR, No murmur Lungs: CTA, good air entry Abdomen: Soft Non tender Musculoskeletal: Left hip pain with palpation Extremities: No edema, good pulses Neurological: Alert and oriented x3. Not able to move his left upper or left lower extremity Skin: No rash, no nodules Labs: WBC: 3.8 10^3/mcL Low (05/25/21 08:27:00) RBC: 4.27 10^6/mcL (05/25/21 08:27:00) Hgb: 11.8 G/dL Low (05/25/21 08:27:00) Hct: 34.7 % Low (05/25/21 08:27:00) MCV: 81.3 fL (05/25/21 08:27:00) MCH: 27.7 pg (05/25/21 08:27:00) MCHC: 34.1 G/dL (05/25/21 08:27:00) RDW: 15.2 % High (05/25/21 08:27:00) Platelet: 166 10^3/mcL (05/25/21 08:27:00) MPV: 7.8 fL (05/25/21 08:27:00) Neutrophil %: 79.4 % (05/25/21 08:27:00) Lymphocyte %: 11.4 % (05/25/21 08:27:00) Monocyte %: 8.7 % (05/25/21 08:27:00) Eosinophil %: 0.2 % (05/25/21 08:27:00) Basophil %: 0.3 % (05/25/21 08:27:00) Neutrophil, Absolute: 3 10^3/mcL (05/25/21 08:27:00) Lymphocyte, Absolute: 0.4 10^3/mcL Low (05/25/21 08:27:00) Monocyte, Absolute: 0.3 10^3/mcL (05/25/21 08:27:00) Eosinophil, Absolute: 0 10^3/mcL (05/25/21 08:27:00) Basophil, Absolute: 0 10^3/mcL (05/25/21 08:27:00) UA Specimen Type: Clean Catch (05/25/21 16:37:00) UA Color: Yellow (05/25/21 16:37:00) UA Appear: Clear (05/25/21 16:37:00) UA Spec Grav: 1.010 Abnormal (05/25/21 16:37:00) UA Glucose: Negative. (05/25/21 16:37:00) UA Bili: Negative. (05/25/21 16:37:00) UA Ketones: 15 Abnormal (05/25/21 16:37:00) UA Blood: Negative. (05/25/21 16:37:00) UA pH: 5.5 (05/25/21 16:37:00) UA Protein: Negative.1 (05/25/21 16:37:00) UA Urobilinogen: 1.0 (05/25/21 16:37:00) UA Nitrite: Negative. (05/25/21 16:37:00) UA Leuk Est: Negative. (05/25/21 16:37:00) Glucose Level: 126 mg/dL High (05/25/21 08:27:00) Sodium Level: 139 mmol/L (05/25/21 08:27:00) Potassium Level: 3.7 mmol/L (05/25/21 08:27:00) Chloride: 101 mmol/L (05/25/21 08:27:00) CO2: 28 mmol/L (05/25/21 08:27:00) Electrolyte Balance: 10 mEq/L (05/25/21 08:27:00) BUN: 12 mg/dL (05/25/21 08:27:00) Creatinine Lvl (s): 1.22 mg/dL (05/25/21 08:27:00) BUN/Creatinine Ratio: 10 ratio (05/25/21 08:27:00) Calcium Lvl: 8.1 mg/dL Low (05/25/21 08:27:00) Total Protein: 5.6 G/dL Low (05/25/21 08:27:00) Albumin Level: 2.1 G/dL Low (05/25/21 08:27:00) Globulin: 3.5 G/dL (05/25/21 08:27:00) A/G Ratio: 0.6 ratio Low (05/25/21 08:27:00) Bili Total: 0.8 mg/dL (05/25/21 08:27:00) Alk Phos: 150 U/L High (05/25/21 08:27:00) AST/SGOT: 260 U/L High (05/25/21 08:27:00) ALT/SGPT: 254 U/L High (05/25/21 08:27:00) GFR Non-: 63 ml/min/1.73sqm (05/25/21 08:27:00) GFR : 77 ml/min/1.73sqm (05/25/21 08:27:00) Lipase Level: 113 U/L (05/25/21 08:27:00) Troponin I High Sensitivity: 13.7 ng/L (05/25/21 08:27:00) Urinalysis UA Specimen Type: Clean Catch (05/25/21 16:37:00) UA Color: Yellow (05/25/21 16:37:00) UA Appear: Clear (05/25/21 16:37:00) UA Spec Grav: 1.010 Abnormal (05/25/21 16:37:00) UA Glucose: Negative. (05/25/21 16:37:00) UA Bili: Negative. (05/25/21 16:37:00) UA Ketones: 15 Abnormal (05/25/21 16:37:00) UA Blood: Negative. (05/25/21 16:37:00) UA pH: 5.5 (05/25/21 16:37:00) UA Protein: Negative.1 (05/25/21 16:37:00) UA Urobilinogen: 1.0 (05/25/21 16:37:00) UA Nitrite: Negative. (05/25/21 16:37:00) UA Leuk Est: Negative. (05/25/21 16:37:00) Assessment and plan: Patient presents as a transfer from [place] emergency department on 05/26/2021 due to having COVID-19 and new onset seizure. New onset seizure most likely secondary to his prior history of significant stroke requiring hemicraniectomy. Start the patient on Keppra. We will get an MRI brain. Will consult neurology. COVID-19 viral pneumonia. Tested positive on 05/18/2021. I will have him on Decadron. Will check COVID-19 labs. Currently he is 92% on room air therefore I will hold off on starting remdesivir. Lovenox. Leukopenia secondary to COVID-19. Anemia most likely chronic. Will monitor Elevated LFTs most likely secondary to COVID-19. Will check repeat labs. Pending repeat labs consider right upper quadrant ultrasound. CT abdomen and pelvis did not show any acute abdominal finding. Ongoing left hip pain. X-ray did not show any concerning finding. I will get a CT for further evaluation due to the significance of his pain. History of stroke in 2019 requiring craniectomy with left-sided hemiparesis. Anxiety/depression. Continue medications Hypertension. Continue home medications Prophylaxis Lovenox CODE STATUS full code [facility] Evaluation note* Diagnosis Onset Date Resolution Status Acute gangrenous cholecystitis acute Community acquired pneumonia acute Hydrops of gallbladder acute History of cerebrovascular accident acute Lactic acidosis acute Obesity acute Proctitis acute Severe Sepsis acute [facility] Work Phone: Evaluation noteNo assessment information available [facility] Work Phone: Evaluation note* Diagnosis Onset Date Resolution Status Chest pain acute Anxiety chronic Depression chronic [facility] Work Phone: Evaluation note* Diagnosis Cerebrovascular accident (CVA) due to thrombosis of right middle cerebral artery (HCC)- Primary documented in this encounter [facility]* Diagnosis Onset Date Resolution Status Chest pain acute Excessive sweating acute Hypertension acute Nausea and vomiting acute [facility] Work Phone: Evaluation note* Diagnosis Skull defect- Primary Skull defect- Primary Skull defect documented in this encounter [facility] note* Diagnosis Skull defect- Primary Skull defect- Primary documented in this encounter [facility] note* Diagnosis Skull defect- Primary Skull defect History of cranioplasty Cognitive impairment Unspecified persistent mental disorders due to conditions classified elsewhere Adjustment disorder, unspecified type Left hip pain Pain in joint, pelvic region and thigh Dysphagia, unspecified type Cerebrovascular accident (CVA) due to thrombosis of right middle cerebral artery (HCC) History of cranioplasty documented in this encounter [facility] note* Diagnosis Skull defect- Primary documented in this encounter [facility] note* Diagnosis Skull defect- Primary documented in this encounter [facility] note* Diagnosis Shortness of breath- Primary documented in this encounter [facility] note* Diagnosis Corneal abrasion, right, initial encounter- Primary documented in this encounter [facility] note* Diagnosis Onset Date Resolution Status Admit Date Screening for malignant neop lasm of colon acute January 15, 2025 8:59am [facility] Work Phone: Hospital course Narrative No data available for this section [facility] Hospital Discharge instructions No data available for this section [facility] Hospital Discharge instructions Additional Instructions Need to have your provider recheck your skin infection in 5 days to make sure antibiotic is working.[facility] Work Phone: Hospital Discharge instructions* Attachments The following attachments cannot be sent through Care Everywhere. * SOB (Shortness of Breath) (British) [facility] Attachments The following attachments cannot be sent through Care Everywhere. * Corneal Scratches (British) [facility] Author Jenn Ferrari [facility] Note Date/Time January 15, 2025 9:35 am [facility] [address] [place] [address] OFFICE VISIT Date of Service: 01/15/25 MR#: [id number] Acct: [id number] Name: JOHNATHAN GONZALEZ Rep #: [id number] : 1975 Provider: MARIAN Esposito Age/Sex: 50/M [place] [facility] [place]: Signed Intake Intake Visit Reasons: PRE COLONOSCOPY Chief Complaint: screening colonoscopy Medications ?Medication ?Instructions ?Recorded ?Confirmed ?Type amlodipine 10 mg tablet 10 mg PO QDAY 01/15/2501/15 History atorvastatin 40 mg tablet 40 mg PO QDAY 01/15/2501/15 History baclofen 10 mg tablet mg PO 01/15/25 01/15/25 Hist ory finasteride 5 mg tablet 5 mg PO QDAY 01/15/25 History levetiracetam 500 mg tablet 500 mg PO BID 01/15/2506/01 History ondansetron HCl 4 mg tablet mg PO 01/15/25 01/15/25 Hi story tamsulosin 0.4 mg capsule mg PO 01/15/25 01/15/25 Hist ory trazodone 50 mg tablet 25 mg PO QHS PRN 01/15/25 History HPI HPI Chief Complaint: screening colonoscopy Details: JOHNATHAN GONZALEZ, is a 50 M who presents to the office today for establishment withI. Pt referred for screening colonoscopy. Pt with PMHx of CVA and hemiparesis (wheelchair bound) and resides at [facility]. No hx of screening colonoscopy. He denies constipation, diarrhea, blood in stool, abd pain, n/v or heartburn. Hehas daily bm without straining. Pt notes his mother wanted him to have a colonoscopy due to family hx of colon cancer but he is unsure what family memberhad it . ROS Const Constitutional: No anorexia, fatigue, fever(s), weight change or sleep problems Eyes Eyes: No change in vision ENT ENT: No abnormal hearing, difficulty swallowing, mouth lesions, tongue swelling or throat swelling Resp Respiratory: No cough or shortness of breath Cardio Cardiology: No chest pain at rest, chest pain with exertion, shortness of breathor dyspnea on exertion Gastro GI: No difficulty swallowing Genitourinary Male: No difficulty urinating or burning urination Musc Musculoskeletal: No joint pain, joint swelling, muscle weakness or decreased muscle mass Skin Skin: No hair loss in leg, yellowing of the eye, itchy eyes, rash, skin ulcer orskin swelling Neuro Neurology: Positive for paralysis and seizures; No abnormal hearing, abnormal movements, confusion, unsteady gait/balance or memory loss Psych Psychiatric: No anxiety, No confusion and No memory loss Endo Endocrine: No fatigue or weight change Aller/Imm Allergy/Immunologic: No itchy eyes, throat swelling or tongue swelling Chance/Lymp Hematologic/Lymphatic: No easy bleeding, easy bruising or enlarged lymph nodes Exam Const General: cooperative and comfortable HENMT Head: normal to inspection Eyes General: appearance normal, both eyes and all related structures Neck Neck: normal visual inspection Chest Chest palpation & inspection: normal inspection of the chest Resp Effort & Inspection: normal respiratory effort Cardio Rate: regular rate Rhythm: regular rhythm GI Inspection: normal to inspection Auscultation: normal bowel sounds Palpation: soft and nontender Assessment and Plan Assessment and Plan (1) Screening for malignant neoplasm of colon: Status: Acute Plan: Johnathan is a 50 yo male pt with PMhx of CVA and hemiparesis who resides at a alf care facility here today for evaluation for screening colonoscopy. Pt has no hx of screening colonoscopy. He endorses a family hx of colon cancer but unsure of relation to him. He denies all GI symptoms. Procedure was explained topt and he was agreeable to be scheduled for this. -Colonoscopy -f.u after procedure Coding Level of Care Code Off vis,new,level 3 Diagnoses Screening for malignant neoplasm of colon Z12.11 01/15/25 0935 <Electronically signed by Jenn FONSECA> Date _ Jenn Gerber Signature: Date (if applicable) CC: ~ [facility] Work Phone: Reason for referral (narrative)No reason for referral information availableNorth[facility] Work Phone: Summary Purpose Family History No Family History Records FoundNo Family History Records FoundNo Family History Records FoundNo Family History Records FoundNo Family History Records FoundNo Family History Records FoundNo Family History Records FoundNo Family History Records FoundNo Family History Records Found Advance Directives No Advanced Directives Records FoundDocuments on File Type Date Recorded 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 Advance Directives and Livin g Will 05/25/2019 11:35 PM Latest Code Status on File Code Status Date Activated Date Inactivated Comments DNRCC-Arrest 06/03/2019 5:00 PM Full Code - Unverified 05/26/2019 1:13 AM 06/03/2019 5 :00 PM Advance Directive Response Recorded Date/ Time Advance Directives No February 08, 2 022 3:08pm Advance Directives Information Provided No February 08, 2022 3:08pm Advanced Directive on File No Augus t 2021 3:08pm Advance Directive Response Recorded Date/ Time Advance Directives No November 17 2:53am Advance Directives Information Provided No November 17, 2022 2:53am Advanced Directive on File No November 052022 2:53am Advance Directive Response Recorded Date/ Time Advance Directives No February 10, 2 023 7:42pm Advance Directives Information Provided No February 10, 2023 7:42pm Advanced Directive on File No Augus t 2022 7:42pm Latest Code Status on File Code Status Date Activated Date Inactivated Comments DNRCC-Arrest 06/03/2019 5:00 PM Code Status History Code Status Date Activated Date Inactivated Comments Full Code - Unverified 05/26/2019 1:13 AM 06/03/2019 5 :00 PM Latest Code Status on File Code Status Date Activated Date Inactivated Comments DNRCC-Arrest 06/03/2019 5:00 PM Code Status History Code Status Date Activated Date Inactivated Comments Full Code - Unverified 05/26/2019 1:13 AM 06/03/2019 5 :00 PM Advance Directive Response Recorded Date/ Time Advance Directives No June 10, 2023 4:27pm Advance Directives Information Provided No June 10, 2023 4:27pm Advanced Directive on File No Dece2022 4:27pm Advance Directive Response Recorded Date/ Time Advance Directives No June 3:19am Advance Directives Information Provided No June 25, 2023 3:19am Advanced Directive on File No Decem 2022 3:19am Advance Directive Response Recorded Date/ Time Advance Directives No June 1:59pm Advance Directives Information Provided No June 25, 2023 1:59pm Advanced Directive on File No [email or web address] 1:59pm Documents on File Type Date Recorded 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 Advance Directives and Livin g Will 06/07/2023 12:59 PM Date Activated Date Inactivated Comments 06/03/2019 5:00 PM Date Activated Date Inactivated Comments 05/26/2019 1:13 AM 06/03/2019 5:00 PM Date Activated Date Inactivated Comments 09/26/2023 7:14 PM 10/02/2023 5:33 PM Date Activated Date Inactivated Comments 06/03/2019 5:00 PM 09/26/2023 9:49 AM Date Activated Date Inactivated Comments 05/26/2019 1:13 AM 06/03/2019 5:00 PM Date Activated Date Inactivated Comments 09/26/2023 7:14 PM 10/02/2023 5:33 PM Date Activated Date Inactivated Comments 06/03/2019 5:00 PM 09/26/2023 9:49 AM Date Activated Date Inactivated Comments 05/26/2019 1:13 AM 06/03/2019 5:00 PM Advance Directive Response Recorded Date/ Time Advance Directives No October 26, 2 025 5:39pm Advance Directives Information Provided No October 26, 2024 5:39pm Advanced Directive on File No October 26, 2024 5:39pm Hospital Course * Romario Fatima, DO - 10/14/2019 10:03 AM EDT [facility] DISCHARGE SUMMARY Johnathan Gonzalez Account: [id number] Admitted: 05/25/2019 Discharge Date/Time: 10/14/19 4:31 PM Handoff to PCP PCP to address the following 1. Neurosurgery to perform cranioplasty when COVID-19 restrictions are removed. Clinical Summary Johnathan Gonzalez is a 44 y.o. male with a history of HTN who presented to [facility] 05/25/[address] [facility] after being found unresponsive, he was found to have right MCA CVA with malignant edema and acute respiratory failure requiring intubation. He was admitted to [facility] and underwent craniectomy 05/26/19. Course complicated by trach/PEG, PNA, and right ICA dissection. Tracheostomy decannulated 07/03/19 and PEG tube removed 08/11/19. Course prolonged secondary to placement issues. 1. Acute Right MCA CVA with Malignant Edema: [facility] being [facility] CTA head/neck 05/25/19 with right ICA occlusion, concern for dissection. CT head05/26/19 with increased mass effect and increased midline shift, underwent craniectomy 05/26/[address] Rankin ([facility] MRA neck 05/27/19 with right ICA dissection. TTE 05/26/19 with preserved LVEF and negative bubble study. Continued ASA/statin. Re-consulted Dr. Rankin (Neurosurgery) on 09/06/19 who felt best to perform surgery (cranioplasty) only when adequate support system established (likely O/P). Discussed with Dr. Rankin per pt request.again in 10/2019, and surgery is deemed elective and is now going to be further delayed due to COVID-19 restriction of elective procedures. Pt is to follow up with [facility] as O/P. 2. LLE Pain: distal, posterior, knee, acute onset. Later localized to joints with some edema. LLEV08/26/19 unremarkable. Repeat CPK WNL. Supportive care. Titrated neurontin dose with dose increased 09/28/19. Improved. 3. Adjustment Disorder: concerned that patient was depressed in the setting of severe debility and lack of family support. Patient's recently lost her job and has not been present throughout patient's hospitalization. Behavioral Medicine followed. 4. Tracheitis/Bronchitis: Completed course of Levaquin 07/24/19. Infectious workup was otherwise unremarkable except urine culture 07/21/19 grew klebsiella/enterococcus which was adequately treated with Levaquin. Resolved. 5. Acute Hypoxic Respiratory Failure: secondary to CVA and malignant edema. S/p tracheostomy 06/09/19. Weaned off vent and decannulated 07/03/19. Resolved to room air. 6. Left Hip Myositis: noted to have severe left hip pain with movement. Left hip x-ray 06/29/19 unremarkable. Left hip joint aspiration 06/30/19 with no fluid removed. Left hip MRI 07/01/19 demonstrated complex, heterogeneous, rim enhancing collection measuring 1.6 x 3.7 cm within the left gluteus medius muscle with surrounding myositis. Ortho and VIR followed; per VIR imaging diffuse inflammation and nothing to aspirate. ID followed at the time and no abx were indicated. Blood cultures x2 07/02/19 negative. Repeat MRI left hip in setting of ongoing pain 07/09/19 showed continued inflammation. ID recommended 5 day course of steroids which patient completed 07/14/19. Suspected possible neuropathy due to inflammation, trial of neurontin with dose titrated 09/28/19, overall improved. 7. Dysphagia: secondary to CVA, s/p PEG 06/09/19- 08/11/19. Tolerating regular diet. 8. Acute Encephalopathy: secondary to above, cEEG 06/06/19-06/08/19 negative for seizures. Resolved largely, but with some memory deficits and delayed responses. 9. VAP: noted 06/01/19 with CXR showing RLL consolidation. Sputum culture 05/31/19 with moderate growth stenotrophomonas. Completed 8 day course of levaquin 06/09/19. Resolved. 10. Abnormal Urine: noted to be dark brown 06/21/19 with grossly abnrmal U/A. CT abd/pelv 06/22/19 with mild obstructive uropathy on left side and small intrarenal non-obstructing stones B/L. Urine cytology 06/22/19 negative for high-grade urothelial carcinoma, noted chronic inflammation. Urine culture 06/22/19 negative. Urology followed, recommended O/P f/u with Dr. Lind to complete hematuria work-up. 11. Code Status/Goals of Care: DNR-CCA, per discussion with by NCC team. Discharge Medications Medication List START taking these medications aspirin 81 mg chewable tablet Chew and Swallow 1 (one) tablet (81 mg total) daily Start: 10/15/19. Start taking on: October 15, 2019 atorvastatin 80 MG tablet Commonly known as: LIPITOR Take 1 (one) tablet (80 mg total) by mouth nightly . bisacodyL 10 mg suppository Commonly known as: DULCOLAX Insert 1 (one) suppository (10 mg total) into the rectum daily as needed for constipation . cyclobenzaprine 5 MG tablet Commonly known as: FLEXERIL Take 1 (one) tablet (5 mg total) by mouth 3 (three) times a day as needed for muscle spasms (d/t left hip pain) . famotidine 20 MG tablet Commonly known as: PEPCID Take 1 (one) tablet (20 mg total) by mouth nightly . gabapentin 300 MG capsule Commonly known as: NEURONTIN Take 3 (three) capsules (900 mg total) by mouth every 8 (eight) hours for 3 days . hydrOXYzine 25 MG tablet Commonly known as: ATARAX Take 1 (one) tablet (25 mg total) by mouth every 6 (six) hours as needed for anxiety . melatonin 5 mg Tab Take 1 (one) tablet (5 mg total) by mouth nightly as needed (insomnia) . nicotine polacrilex 2 mg gum Commonly known as: NICORETTE Apply 1 (one) each (2 mg total) to the mouth or throat every hour as needed for smoking cessation . ondansetron 4 MG disintegrating tablet Commonly known as: ZOFRAN-ODT Dissolve 1 (one) tablet (4 mg total) on top of tongue every 6 (six) hours as needed . oxyCODONE 5 MG immediate release tablet Commonly known as: ROXICODONE Take 1 (one) tablet (5 mg total) by mouth every 6 (six) hours as needed . polyethylene glycol 17 gram powder Commonly known as: MIRALAX Take 17 (seventeen) g by mouth daily for 7 days Start: 10/15/19. Start taking on: October 15, 2019 senna 8.6 mg tablet Commonly known as: SENOKOT Take 2 (two) tablets (17.2 mg total) by mouth 2 (two) times a day . Where to Get Your Medications You can get these medications from any pharmacy Bring a paper prescription for each of these medications gabapentin 300 MG capsule oxyCODONE 5 MG immediate release tablet Information about where to get these medications is not yet available Ask your nurse or doctor about these medications aspirin 81 mg chewable tablet atorvastatin 80 MG tablet bisacodyL 10 mg suppository cyclobenzaprine 5 MG tablet famotidine 20 MG tablet hydrOXYzine 25 MG tablet melatonin 5 mg Tab nicotine polacrilex 2 mg gum ondansetron 4 MG disintegrating tablet polyethylene glycol 17 gram powder senna 8.6 mg tablet Physician(s) Family: Physician No, Phone: None, Address: [facility] Follow Up: [facility] [address] [facility] [id number] Follow up Please call for follow-up appointment Luc Lind MD [address] [facility] [address] [address] Follow up Please call for follow-up appointment [facility] Up Clinic [address] [facility] [address] [facility] [facility] [id number] Follow up Follow up as needed Wilton Rankin MD [address] [facility] [address] [facility] [address] Follow up Follow up sometime in September to discuss replacement of your skull/craniplasty. [facility] Address: [address] [id number] Servicing Counties: [place] [phone] Additional Information: Patient seen and examined day of discharge. For more information regarding patient's care, including complete radiology reports, please contact [facility] at Patient instructions, including activity, were given to the patient/family at discharge. Please seethe After Visit Summary in the medical record for details. Time spent on discharge: > 30 minutes Completed by: Romario Fatima on 10/14/19, 4:31 PM documented in this encounter Discharge Instructions * Discharge Instr - Care Coordination* Chanda Montaño LSW - 06/11/2019 3:05 PM EST Our records indicate that you do not follow with a Primary Care Provider (PCP). Please call or visit the following to assist you in establishing with a PCP: : see back of your insurance card or go to [facility]: [phone], [email or web address] [facility] Referral Service: [phone], or visit [email or web address] [facility]: [email or web address] Physician Referral: [phone], or visit [email or web address] [place] [address] PHONE: [phone] FAX: [phone] * Additional Instructions* Moon Garcia, AURY - 07/14/2019 Bursitis: Care Instructions Your Care Instructions A bursa is a small sac of fluid that helps the tissues around a joint slide over one another easily. Injury or overuse of a joint can cause pain, redness, and inflammation in the bursa (bursitis). Bursitis usually gets better if you avoid the activity that caused it. You can help prevent bursitis from coming back by doing stretching and strengthening exercises. You may also need to change the wayyou do some activities. Follow-up care is a chirinos part of your treatment and safety. Be sure to make and go to all appointments, and call your doctor if you are having problems. It's also a good idea to know your test resultsand keep a list of the medicines you take. How can you care for yourself at home? Put ice or a cold pack on the area for 10 to 20 minutes at a time. Try to do this every 1 to 2 hours for the next 3 days (when you are awake) or until the swelling goes down. Put a thin cloth betweenthe ice and your skin. After the 3 days of using ice, you may use heat on the area. You can use a hot water bottle; a warm, moist towel; or a heating pad set on low. You can also try alternating heat and ice. Rest the area where you have pain. Stop any activities that cause pain. Switch to activities that do not stress the area. Take pain medicines exactly as directed. ? If the doctor gave you a prescription medicine for pain, take it as prescribed. ? If you are not taking a prescription pain medicine, ask your doctor if you can take an olub-ono-fzvwetr medicine. ? Do not take two or more pain medicines at the same time unless the doctor told you to. Many pain medicines have acetaminophen, which is Tylenol. Too much acetaminophen (Tylenol) can be harmful. To prevent stiffness, gently move the joint as much as you can without pain every day. As the pain gets better, keep doing yidjq-gw-syhziv exercises. Ask your doctor for exercises that will make the muscles around the joint stronger. Do these as directed. You can slowly return to the activity that caused the pain, but do it with less effort until you can do it without pain or swelling. Be sure to warm up before and stretch after you do the activity. When should you call for help? Call your doctor now or seek immediate medical care if: You have new or worse symptoms of infection, such as: ? Increased pain, swelling, warmth, or redness. ? Red streaks leading from the area. ? Pus draining from the area. ? A fever. Watch closely for changes in your health, and be sure to contact your doctor if: You do not get better as expected. Where can you learn more? Log into your personal health record on [email or web address] and enter Q970 in the Education box to learn more about Bursitis: Care Instructions. Current as of: December 31, 2018 Content Version: 12.3 4007-6412 [employer]. Care instructions adapted under license by your healthcare professional. If you have questions about a medical condition or this instruction, always ask your healthcare professional. [employer] disclaims any warranty or liability for your use of this information. documented in this encounter History of Present Illness * Chanda Montaño LSW - 10/14/2019 2:17 PM EDT COMPLEX DISCHARGE Date: 10/14/2019 Time: 2:17 PM Patient Name: Johnathan Gonzalez Date of : 1975 Sex: Male Pt to discharge today to [facility] 4-5pm. Facility, , pt, and nursing updated. Pt is from [place], [place] and both pt and family would like placement closer to home. AREA FIELD PERSON reiterated visitor policies at [facility] and most facilities at this time due to Covid-19 Pt and family updated regarding transfer process from SNF to SNF; pt's agreeable. Facility liaison updated regarding probable transfer. B[facility] have denied due to pt's insurance and concerns regarding LTC. Pt documentation, pt does not have capacity for medical decisions. Patient Information Primary Caregiver: Self Discharge Planning Living Arrangements: Spouse/significant other Support Systems: None Functional Status: Maximum assistance Assistance Needed: Maximum Type of Residence: Private residence Prior to Admission Home Care Services: No Patient expects to be discharged to:: (Pt wants to be dc home.) Does the patient need discharge transport arranged?: No Current Home Equipment: None Anticipated HME: Undetermined Anticipated Home Care Needs: Undetermined Anticipated Facility Type: [facility] facility Insurance Coverage for Prescriptions: No Anticipated Discharge Plan Anticipated HME: Undetermined Anticipated Home Care Needs: Undetermined Anticipated Facility Type: [facility] facility Potential for Readmission Potential for Readmission: Yes Potential for Readmission Reason: Rising Risk Rate Discharge Readiness Expected Discharge Date: 10/12/19 Barriers to Discharge: Other (Comment)(Medicaid pending for LTC) [facility] Disposition D/C Disposition: Intermediate Care Facility Agency/Destination: Other Estimated Length of Stay (ELOS): 14 ELOS Discussed with Patient / Family?: Yes Same As Recommended : yes PAS/RR: BARRY Transportation Type: Ambulance Transportation Company/Agency Name: [facility] Options Reviewed: List provided, Possible expense, Explained services/benefits Reason for Choice: Patient/Family preference * Romario Fatima, - 10/14/2019 10:02 AM EDT [facility] Inpatient Progress Note 10/14/2019 Johnathan Moran Lisa 1975 [id number] Assessment/Plan: Johnathan Gonzalez is a 44 y.o. male with a history of HTN who presented to [facility] 05/25/[address] [facility] after being found unresponsive, he was found to have right MCA CVA with malignant edema and acute respiratory failure requiring intubation. He was admitted to [facility] and underwent craniectomy 05/26/19. Course complicated by trach/PEG, PNA, and right ICA dissection. Tracheostomy decannulated 07/03/19 and PEG tube removed 08/11/19. Course prolonged secondary to placement issues. 1. Acute Right MCA CVA with Malignant Edema: [facility] being [facility] CT[facility] head/neck 05/25/19 with right ICA occlusion, concern for dissection. CT head05/26/19 with increased mass effect and increased midline shift, underwent craniectomy 05/26/[address] Rankin ([facility]). MRA neck 05/27/19 with right ICA dissection. TTE 05/26/19 with preserved LVEF and negative bubble study. Continued ASA/statin. Reconsulted Dr. Rankin of [facility] 09/05 who felt best to perform surgery (cranioplasty) only when adequate support system established (likely outpt). Discussed Case with Dr. Rankin per pt request. Surgery is deemed elective and is now going to be further delayed due to COVID 19 restriction of elective procedures. Pt is to follow up with [facility] as outpatient. 2. LLE Pain: Knee distal, posterior, acute onset. Later localized to joints with some edema. LE Duplex 08/26/19 unremarkable. Repeat CPK WNL. Supportive care for now. Titrated Neurontin dose with doseincreased 09/28/19. 3. Adjustment Disorder: concerned that patient was depressed in the setting of severe debility and lack of family support. Patient's recently lost her job and has not been present throughout patient's hospitalization. Behavioral Medicine followed. 4. Tracheitis/Bronchitis: Completed course of Levaquin 07/24/19. Infectious workup was otherwise unremarkable except urine culture 07/21/19 grew klebsiella/enterococcus which was adequately treated with Levaquin. Resolved. 5. Acute Hypoxic Respiratory Failure: secondary to CVA and malignant edema. S/p tracheostomy 06/09/19. Weaned off vent and decannulated 07/03/19. Resolved to room air. 6. Left Hip Myositis: noted to have severe left hip pain with movement. Left hip x-ray 06/29/19 unremarkable. Left hip joint aspiration 06/30/19 with no fluid removed. Left hip MRI 07/01/19 demonstrated complex, heterogeneous, rim enhancing collection measuring 1.6 x 3.7 cm within the left gluteus medius muscle with surrounding myositis. Ortho and VIR followed; per VIR imaging diffuse inflammation and nothing to aspirate. ID followed at the time and no abx were indicated. Blood cultures x2 07/02/19 negative. Repeat MRI left hip in setting of ongoing pain 07/09/19 showed continued inflammation. ID recommended 5 day course of steroids which patient completed 07/14/19. Suspect possible neuropathy due to inflammation, trial of Neurontin with dose titrated 09/28/19 7. Dysphagia: secondary to CVA, s/p PEG 06/09/19- 08/11/19. Tolerating regular diet. 8. Acute Encephalopathy: secondary to above, cEEG 06/06/19-06/08/19 negative for seizures. Resolved largely, but with some memory deficits and delayed responses. 9. VAP: noted 06/01/19 with CXR showing RLL consolidation. Sputum culture 05/31/19 with moderate growth stenotrophomonas. Completed 8 day course of levaquin 06/09/19. Resolved. 10. Abnormal Urine: noted to be dark brown 06/21/19 with grossly abnrmal U/A. CT abd/pelv 06/22/19 with mild obstructive uropathy on left side and small intrarenal non-obstructing stones B/L. Urine cytology 06/22/19 negative for high-grade urothelial carcinoma, noted chronic inflammation. Urine culture 06/22/19 negative. Urology followed, recommended O/P f/u with Dr. Lind to complete hematuria work-up. 11. Not For Resuscitation: DNR-CCA, per discussion with by NCC team. 12. DVT Prophylaxis: lovenox SQ. Current living situation: home Expected disposition: SNF, medicaid pending; patient does not have capacity for medical decision making: may need guardianship per SW. Estimated discharge date: TBD Subjective: I reviewed chart for all vitals, diagnostic data, and infrastructure consultant notes. I discussed patient's care with RN, charge accounts audit clerk, Pharmacy, Appliance Repair Technician, Special Inspector, and Sap Integration Architect. Patient is clinically unchanged. Awaiting safe disposition. Physical Exam: BP 133/88 Pulse 72 Temp 97.4 F (36.3 C) (Oral) Resp 14 Ht 5' 10 Wt 78.4 kg (172 lb 13.5 oz) SpO2 95% BMI 24.80 kg/m General: NAD, alert, right craniectomy, resting in bed Eyes: EOMI, anicteric ENT: neck supple, on room air Cardiovascular: Regular rate. No murmur. Respiratory: Clear to auscultation, unlabored on RA Gastrointestinal: Soft, non tender : no suprapubic tenderness Musculoskeletal: all 4 extremities intact, increased tonicity LLE Skin: warm, dry Neuro: Awake and Alert. Left hemiparesis Psych: Mood calm, cooperative Current Medications: aspirin 81 mg Oral Daily atorvastatin 80 mg Oral Nightly enoxaparin (LOVENOX) injection 40 mg Subcutaneous Daily famotidine 20 mg Oral Nightly gabapentin 900 mg Oral Q8H ELIER lidocaine 2 patch Transdermal Daily polyethylene glycol 17 g Oral Daily senna 2 tablet Oral BID Labs, Imaging and Studies reviewed: Results from last 7 days Lab Units 10/08/19 1310 WBC K/mcL 9.10 HGB g/dL 13.9 HCT % 42.7 PLT K/mcL 259 Results from last 7 days Lab Units 10/08/19 1310 SODIUM mmol/L 141 POTASSIUM mmol/L 4.1 CHLORIDE mmol/L 104 BICARB mmol/L 26 BUN mg/dL 17 CREATININE mg/dL 0.89 EGFR mL/min/1.73 m2 103 GLUCOSE mg/dL 147* CALCIUM mg/dL 9.7 PHOSPHORUS mg/dL 4.0 * Jenny Muñoz RD - 10/14/2019 9:57 AM EDT Nutrition Care Follow Up Due to the current COVID-19 infection precautions that are in place, this note was prepared withouta bedside interview and nutrition-focused physical exam has been deferred at this time. Direct patient information was obtained via electronic communication or telephone conversations with patients and/or family when available, bedside nurse or other medical provider, Physician or BERYL. Nutrition Diagnosis: No new nutrition related diagnosis at this time. Nutrition Intervention/ Nutrition Prescription: - Continue with Diet Regular; Regular Oral nutrition supplements Boost Plus; Boost Plus Chocolate Afternoon snack Oral nutrition supplements Magic Cup; Magic Cup Chocolate At lunch and dinner Nutrition Goals: Pt will continue to consume 75-100% of at least 2 meals and supplements Start Date:10/14/2019 Expected End Date:10/21/2019 Nutrition Education: No needs at this time Monitoring and Evaluation: PO intake was 50% or greater at most meals Continue to monitor intakes, wts, labs, acceptance of supplements Pt remains at low risk for nutrition at [facility] time. Assessment: Pertinent clinical information per physician notes:Johnathan Gonzalez is a 44 y.o. male with a historyof HTN who presented to [facility] 05/25/[address] [facility] after being found unresponsive, he was found to have right MCA CVA with malignant edema and acute respiratory failure requiring intubation. He was admitted to [facility] and underwent craniectomy 05/26/19. Course complicated by trach/PEG, PNA, and right ICA dissection. Tracheostomy decannulated 07/03/19 and PEG tube removed 08/11/19. Course prolonged secondary to placement issues. Patient/family comments:Unable to reach via telephone. Height: 5' 10 Current weight: 78.4 kg (172 lb 13.5 oz) BMI Body mass index is 24.8 kg/m . Weight hx: Wt stable at this time. 10/12/19 0500 78.4 kg (172 lb 13.5 oz) 10/04/19 0515 80.2 kg (176 lb 12.9 oz) 09/30/19 1654 79.1 kg (174 lb 6.1 oz) Wt Readings from Last 5 Encounters: 10/12/19 78.4 kg (172 lb 13.5 oz) 06/30/19 84 kg (185 lb 3 oz) Current Diet:.Diet Regular; Regular Oral nutrition supplements Boost Plus; Boost Plus Chocolate Afternoon snack Oral nutrition supplements Magic Cup; Magic Cup Chocolate At lunch and dinner Recent intake: 50-100% per flwo sheets Current intake Likely meets estimated needs. Difficulty Chewing/Swallowing: No Skin Integrity: BL UE edema and LLE edema per flow sheets GI Function: Active, LBM 10/14/2019 Physical Appearance: JOSE FRANCISCO Labs: No results for input(s): NA, K, BICARB, CL, GLUCOSE, BUN, CREATININE, MG, PHOS in the last 72 hours. Lab Results Component Value Date ALBUMIN 3.2 10/08/2019 Scheduled Meds: aspirin 81 mg Oral Daily atorvastatin 80 mg Oral Nightly enoxaparin (LOVENOX) injection 40 mg Subcutaneous Daily famotidine 20 mg Oral Nightly gabapentin 900 mg Oral Q8H ELIER lidocaine 2 patch Transdermal Daily polyethylene glycol 17 g Oral Daily senna 2 tablet Oral BID Continuous Infusions: sodium chloride 0.9 % Needs Calculations: as per initial assessment Estimated Energy Needs Total Energy Estimated Needs: 1473-3045 kcal Method for Estimating Needs: 25-30 kcal/ kg using BMI=24.9 Total Protein Estimated Needs: 95-119 gm protein Method for Estimating Needs: 1.2-1.5 gm/ kg using BMI= 24.[address], LD * Chanda Montaño LSW - 10/14/2019 8:05 AM EDT COMPLEX DISCHARGE Date: 10/14/2019 Time: 8:06 AM Patient Name: Johnathan Gonzalez Date of : 1975 Sex: Male Pt is potentially d/c today to [facility]; per documentation and pt's , facility was not chosen by family. Pt is from [place], [place], facility is located in [place], [place]; family is not agreeable to facility choice. This AREA FIELD PERSON spoke with pt's , explained [facility] acceptance and the transfer process from facility to facility, if needed. Pt's stated understanding, expressed that they were wanting for pt to d/c to [facility]. AREA FIELD PERSON called this facility, who states that they are medically able to accept but need permission from their corporate office prior to accepting. Pt's family updated. Tentative transport to [facility] is at 4-5p 10/13 Patient Information Primary Caregiver: Self Discharge Planning Living Arrangements: Spouse/significant other Support Systems: None Functional Status: Maximum assistance Assistance Needed: Maximum Type of Residence: Private residence Prior to Admission Home Care Services: No Patient expects to be discharged to:: (Pt wants to be dc home.) Does the patient need discharge transport arranged?: No Current Home Equipment: None Anticipated HME: Undetermined Anticipated Home Care Needs: Undetermined Anticipated Facility Type: [facility] facility Insurance Coverage for Prescriptions: No Anticipated Discharge Plan Anticipated HME: Undetermined Anticipated Home Care Needs: Undetermined Anticipated Facility Type: [facility] facility Potential for Readmission Potential for Readmission: Yes Potential for Readmission Reason: Rising Risk Rate Discharge Readiness Expected Discharge Date: 10/12/19 Barriers to Discharge: Other (Comment)(Medicaid pending for LTC) [facility] Disposition D/C Disposition: Intermediate Care Facility Agency/Destination: Other Estimated Length of Stay (ELOS): 14 ELOS Discussed with Patient / Family?: Yes Same As Recommended : yes PAS/RR: PAS Transportation Type: Ambulance Transportation Company/Agency Name: [facility] Options Reviewed: List provided, Possible expense, Explained services/benefits Reason for Choice: Patient/Family preference * Mi Burt, PT - 10/13/2019 11:04 AM EDT Physical Therapy PHYSICAL THERAPY TREATMENT NOTE I utilized the following PPE throughout this therapy session: Gloves and Surgical mask A Dental Scheduler did not assist during therapy session. Skilled Therapy Needs After Discharge Anticipate Resolution of Current Assessment Limitations Including: (n/a) Are Skilled Therapy Services Needed After Discharge: Yes Intensity of Skilled Therapy: Up to 5 days per week(approved for SNF, needs caregiver training) Anticipated Duration of Skilled Therapy: (-) DME Recommendation: To be determined at next level of care DME Rationale: (-) Rehab Potential: Good, For goals Outcomes Measures Prior Function - Basic Mobility Raw Score: 24 Points Prior Function - Basic Mobility % Impaired: 0% functionally impaired AM-PAC - Basic Mobility Raw Score: 8 Points AM-PAC - Basic Mobility % Impaired: 85.35% functionally impaired Cognition Patient follows basic commands appropriately; patient with decreased insight into deficits and current situation Therapy Precautions Orthotic Devices: Yes Spine / Trunk: (helmet-no bone flap) Upper Extremity: Left(left resting hand splint) Weight Bearing Status: WFL General Rehab Precautions: Fall risk(high fall risk) Balance Sitting Balance - Static: (mod - max ) Sitting Balance - Dynamic: (mod - max) Standing Balance - Static: (not indicated due to decreased sitting balance) Skilled Intervention: Provided verbal, tactile, and visual cues for anterior pelvic tilts to facilitate anterior weight shift to increase midline sitting posture. Bed Mobility Rolling: (max to roll to right, min to roll to the left) Supine to Sit: Max, 2 person assist Sit to Supine: Max, 2 person assist Skilled Intervention: Provided verbal and tactile cues for techniques to facilitate use of right UE/LE to assist with transfer. Transfers Sit to Stand: (not indicated ) Gait/Locomotion Gait Assistance: (not indicated) Exercise Skilled Intervention: Performed PROM of left LE to assist with pain control Home Living Type of Home: House Home Layout: One level(2STE no rail (able to install if needed)) Bathroom Shower/Tub: Tub/shower unit Bathroom Toilet: Standard Bathroom Equipment: (none) Additional Comments: Pt unable to provide info. 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 This note stands as the current Discharge Summary upon patient discharge from the hospital or completion of Physical Therapy Plan of Care. * Warren Eng, OT - 10/13/2019 10:51 AM EDT Occupational Therapy OCCUPATIONAL THERAPY TREATMENT NOTE I utilized the following PPE throughout this therapy session: Gloves and Surgical mask A Dental Scheduler did not assist during therapy session. Skilled Therapy Needs After Discharge Anticipate Resolution of Current Assessment Limitations Including: Mechanical Barriers, Social Support Are Skilled Therapy Services Needed After Discharge: Yes Intensity of Skilled Therapy: Up to 5 days per week Anticipated Duration of Skilled Therapy: > 30 days DME Recommendation: To be determined at next level of care DME Rationale: Patient's condition creates an increased risk of safety hazard without recommended equipment, Patient's condition prevents him/her from accomplishing ADL without recommended equipment Rehab Potential: Fair, For goals Outcomes Measures Prior Function Daily Activity: Raw Score: 24 Prior Function Daily Activity % Impaired: 0% functionally impaired AM-PAC Daily Activity: Raw Score: 13 AM-PAC Daily Activity % Impaired: 63.03% functionally impaired Therapy Precautions Orthotic Devices: (P) Yes Spine / Trunk: (P) (helmet-no bone flap) Upper Extremity: (P) Left(left resting hand splint) Weight Bearing Status: (P) WFL General Rehab Precautions: (P) Fall risk(high fall risk) Cognition Overall Cognitive Status: Impaired Arousal/Alertness: Delayed responses to stimuli Orientation Level: Oriented X4 Executive functioning: Mod impairment, Insight, Planning / Organizing Safety Judgment: Decreased awareness of need for assistance, Decreased awareness of need for safety Problem Solving: Assistance required to identify errors made, Assistance required to generate solutions, Assistance required to implement solutions Attention: Attends to quiet environment Hearing Status: WFL Social Interaction: Cooperative Comments: Patient able to follow simple commands ADL/IADL Grooming : Stand by assistance Skilled Intervention: Patient completed hygiene/grooming task while seated on EOB to complete washing face and brushing teeth. Patient able to complete ADL, but required mod/max A to maintain uprightposture with strong retro lean. Patient's splint applied to L hand/wrist in apporpriate position, no s/s of skin breakdown. Bed Mobility Rolling: Max Supine to Sit: Max, 2 person assist Sit to Supine: Max, 2 person assist Skilled Intervention: Patient required cues for proper positioning and technique Interventions Balance Training: Sitting reaching activities(reach across with RUE to L side to increase L side awareness) Home Living Type of Home: House Home Layout: One level(2STE no rail (able to install if needed)) Bathroom Shower/Tub: Tub/shower unit Bathroom Toilet: Standard Bathroom Equipment: (none) Additional Comments: Pt unable to provide info. 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 This note stands as the current Discharge Summary upon patient discharge from the hospital or completion of Occupational Therapy Plan of Care. * Ana Maria Gaytan MSW LSW - 10/13/2019 9:54 AM EDT DISCHARGE PLAN PROGRESS NOTE Date: 10/13/2019 Time: 9:54 AM Patient Name: Johnathan Gonzalez Date of : 1975 Sex: Male Discharge Readiness Expected Discharge Date: 10/12/19 Barriers to Discharge: Other (Comment)(Medicaid pending for LTC) [facility] Disposition D/C Disposition: Intermediate Care Facility Agency/Destination: Other Estimated Length of Stay (ELOS): 14 ELOS Discussed with Patient / Family?: Yes Same As Recommended : yes PAS/RR: PAS Transportation Type: Ambulance Transportation Company/Agency Name: [facility] Options Reviewed: List provided, Possible expense, Explained services/benefits Reason for Choice: Patient/Family preference Anticipated Discharge Plan Anticipated HME: Undetermined Anticipated Home Care Needs: Undetermined Anticipated Facility Type: [facility] facility [facility] spoke with pts who stated that she was fine with [facility] sending multiple referrals to have ptplaced as long as pt is not in [facility]. [facility] PERSON has sent referrals to [facility], [facility], and [facility] if [place] . [facility]A FIELD PERSON will continue to follow. 01:32PM ARE[facility] FIELD PERSON received update that pt has been accepted to [facility] and ayana has been started and is currently pending for pt. Transportation has been arranged for pt for 10/14/2019. [facility]ERSON will continue to follow. 03:18pm ARE[facility] FIELD PERSON spoke with pts who stated that she has contacted [facility] which is much closerto pts and daughter. [facility] FIELD PERSON contacted facility liaison whose number is [phone], fax number [phone]. [facility] is awaiting response if facility is able to accept pt. [facility] [facility] [facility]ERSON will continue to follow. * Luisa Gallegos, KRAIG - 10/13/2019 9:00 AM EDT Speech Pathology DAILY NOTE Recommended Diet: PO Recommendations: Regular, Thin liquid Barriers Returning to Prior Level of Function: Body Structure and Function: Musculoskeletal impairment, Neurologic impairment, Cardiopulmonary impairment Explain Impairments: R MCA CVA with craniotomy Activities and Participation: Executive function limitation, Swallowing limitation Explain Limitations: (dysphagia, cog deficits) Environmental Factors: Family/caregiver support, Home situation Explain Environmental Factors: Pt lives with and kids Personal Factors: Awareness of own capacity and performance Explain Personal Factors: Pt demonstrates decreased insight into deficits and ability Skilled Therapy Needs: Skilled Therapy Needs: Are Skilled Therapy Services Needed After Discharge: Yes Intensity of Skilled Therapy: Up to 5 days per week Recommendations: Recommendations PO Recommendations: Regular, Thin liquid Compensation Strategies: Cheek pocketing Left, Double swallow liquids, Double swallow food Postures: Sit 90 degrees Food Presentation: Small bites, Food placement left Liquid Presentation: Small sips Medication Presentation: Whole with thins, Whole in puree Amount of Supervision: Nursing staff supervision Treatment Techniques: Diet tolerance 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 Working toward discharge home: Yes FLEXBOARD OPERATOR Caregiver Training: Ongoing - Follow up required(no family present) Who was trained?: (09/18/19: no caregivers present) Provided training for: (07/15/2019-caregiver not present) Subjective Pt was seen for dysphagia and cognitive tx. Pt was alert and cooperative. Objective Swallowing: The following oral strengthening exercises were initiated: isometric lingual/labial strengthening exercises x5 for ~30 seconds with mod cues and with fair accuracy. Pt reports he is tolerating current diet with no overt s/s of aspiration. Denies left buccal pocketing, but reiterated swallowing strategies; able to verbalize understanding. Cognition: Pt is very easily distracted and needed constant verbal cues to attend to task. Pt needed mod cues in order to complete basic verbal problem solving task. Pt needed min-mod cues in order to complete verbal sequencing task. Pt was able to recall 1/3 items after short period of time. Assessment Pt continues with cognitive deficits and oral dysphagia. Plan Speech therapy to f/u with pt per POC. Past Medical History: Diagnosis Date Arthritis Diabetes mellitus (HCC) Hypertension Stroke (HCC) Syncope Past Surgical History: Procedure Laterality Date BRONCHOSCOPY N/A 06/09/2019 Procedure: BRONCHOSCOPY with tracheostomy; Surgeon: Luc Rodas MD; Location: [facility] Endo; Service: General Surgery CRANIECTOMY Right 05/26/2019 Procedure: right hemiCRANIECTOMY; Surgeon: Wilton Rankin MD; Location: [facility] NEURO OR; Service: Neurological EGD N/A 06/09/2019 Procedure: ESOPHAGOGASTRODUODENOSCOPY with percutaneous endoscopic gastrostomy tube placement; Surgeon: Luc Farmer MD; Location: [facility] Endo; Service: Gastroenterology For complete objective data, detailed plan of care, and education refer to: Speech Comm/COG flow sheets, Bedside Study Evaluation flow sheets, [facility] Navigator, as well as patient Plan of Care and Education documentation. This note stands as the current Discharge Summary upon patient discharge from the hospital or completion of Speech Pathology Plan of Care * Romario Fatima, - 10/13/2019 8:51 AM EDT [employer] Inpatient Progress Note 10/13/2019 Johnathan Gonzalez 1975 [id number] Assessment/Plan: Johnathan Gonzalez is a 44 y.o. male with a history of HTN who presented to [facility] 05/25/[address] [facility] after being found unresponsive, he was found to have right MCA CVA with malignant edema and acute respiratory failure requiring intubation. He was admitted to [facility] and underwent craniectomy 05/26/19. Course complicated by trach/PEG, PNA, and right ICA dissection. Tracheostomy decannulated 07/03/19 and PEG tube removed 08/11/19. Course prolonged secondary to placement issues. 1. Acute Right MCA CVA with Malignant Edema: presented after being found unresponsive, [facility] brain [facility]. CTA head/neck 05/25/19 with right ICA occlusion, concern for dissection. CT head05/26/19 with increased mass effect and increased midline shift, underwent craniectomy 05/26/[address] Rankin ([facility]). MRA neck 05/27/19 with right ICA dissection. TTE 05/26/19 with preserved LVEF and negative bubble study. Continued ASA/statin. Reconsulted Dr. Rankin of [facility] 09/05 who felt best to perform surgery (cranioplasty) only when adequate support system established (likely outpt). Discussed Case with Dr. Rankin per pt request. Surgery is deemed elective and is now going to be further delayed due to COVID 19 restriction of elective procedures. Pt is to follow up with [facility] as outpatient. 2. LLE Pain: Knee distal, posterior, acute onset. Later localized to joints with some edema. LE Duplex 08/26/19 unremarkable. Repeat CPK WNL. Supportive care for now. Titrated Neurontin dose with doseincreased 09/28/19. 3. Adjustment Disorder: concerned that patient was depressed in the setting of severe debility and lack of family support. Patient's recently lost her job and has not been present throughout patient's hospitalization. Behavioral Medicine followed. 4. Tracheitis/Bronchitis: Completed course of Levaquin 07/24/19. Infectious workup was otherwise unremarkable except urine culture 07/21/19 grew klebsiella/enterococcus which was adequately treated with Levaquin. Resolved. 5. Acute Hypoxic Respiratory Failure: secondary to CVA and malignant edema. S/p tracheostomy 06/09/19. Weaned off vent and decannulated 07/03/19. Resolved to room air. 6. Left Hip Myositis: noted to have severe left hip pain with movement. Left hip x-ray 06/29/19 unremarkable. Left hip joint aspiration 06/30/19 with no fluid removed. Left hip MRI 07/01/19 demonstrated complex, heterogeneous, rim enhancing collection measuring 1.6 x 3.7 cm within the left gluteus medius muscle with surrounding myositis. Ortho and VIR followed; per VIR imaging diffuse inflammation and nothing to aspirate. ID followed at the time and no abx were indicated. Blood cultures x2 07/02/19 negative. Repeat MRI left hip in setting of ongoing pain 07/09/19 showed continued inflammation. ID recommended 5 day course of steroids which patient completed 07/14/19. Suspect possible neuropathy due to inflammation, trial of Neurontin with dose titrated 09/28/19 7. Dysphagia: secondary to CVA, s/p PEG 06/09/19- 08/11/19. Tolerating regular diet. 8. Acute Encephalopathy: secondary to above, cEEG 06/06/19-06/08/19 negative for seizures. Resolved largely, but with some memory deficits and delayed responses. 9. VAP: noted 06/01/19 with CXR showing RLL consolidation. Sputum culture 05/31/19 with moderate growth stenotrophomonas. Completed 8 day course of levaquin 06/09/19. Resolved. 10. Abnormal Urine: noted to be dark brown 06/21/19 with grossly abnrmal U/A. CT abd/pelv 06/22/19 with mild obstructive uropathy on left side and small intrarenal non-obstructing stones B/L. Urine cytology 06/22/19 negative for high-grade urothelial carcinoma, noted chronic inflammation. Urine culture 06/22/19 negative. Urology followed, recommended O/P f/u with Dr. Lind to complete hematuria work-up. 11. Not For Resuscitation: DNR-CCA, per discussion with by NCC team. 12. DVT Prophylaxis: lovenox SQ. Current living situation: home Expected disposition: SNF, medicaid pending; patient does not have capacity for medical decision making: may need guardianship per SW. Estimated discharge date: TBD Subjective: Patient known to me from earlier during this hospitalization. I reviewed chart for all vitals, diagnostic data, and infrastructure consultant notes. I discussed patient's care with RN, charge accounts audit clerk, Pharmacy, Appliance Repair Technician, Special Inspector, and Sap Integration Architect. Patient obtained Medicaid and can be placed to SNF at this point. Patient is frustrated that he cannot move forward with his surgery at this time (it is considered elective). He does not have appropriate insight into current situation. Physical Exam: BP 125/84 Pulse 97 Temp 99 F (37.2 C) (Oral) Resp 14 Ht 5' 10 Wt 78.4 kg (172 lb 13.5 oz) SpO2 93% BMI 24.80 kg/m General: NAD, alert, right craniectomy, resting in bed Eyes: EOMI, anicteric ENT: neck supple, on room air Cardiovascular: Regular rate. No murmur. Respiratory: Clear to auscultation, unlabored on RA Gastrointestinal: Soft, non tender : no suprapubic tenderness Musculoskeletal: all 4 extremities intact, increased tonicity LLE Skin: warm, dry Neuro: Awake and Alert. Left hemiparesis Psych: Mood calm, cooperative Current Medications: aspirin 81 mg Oral Daily atorvastatin 80 mg Oral Nightly enoxaparin (LOVENOX) injection 40 mg Subcutaneous Daily famotidine 20 mg Oral Nightly gabapentin 900 mg Oral Q8H ELIER lidocaine 2 patch Transdermal Daily polyethylene glycol 17 g Oral Daily senna 2 tablet Oral BID Labs, Imaging and Studies reviewed: Results from last 7 days Lab Units 10/08/19 1310 WBC K/mcL 9.10 HGB g/dL 13.9 HCT % 42.7 PLT K/mcL 259 Results from last 7 days Lab Units 10/08/19 1310 SODIUM mmol/L 141 POTASSIUM mmol/L 4.1 CHLORIDE mmol/L 104 BICARB mmol/L 26 BUN mg/dL 17 CREATININE mg/dL 0.89 EGFR mL/min/1.73 m2 103 GLUCOSE mg/dL 147* CALCIUM mg/dL 9.7 PHOSPHORUS mg/dL 4.0 * Rhonda Lua OT - 10/12/2019 4:09 PM EDT Occupational Therapy OCCUPATIONAL THERAPY TREATMENT NOTE I utilized the following PPE throughout this therapy session: Gloves and Surgical mask A Dental Scheduler Lacy Aguillon during therapy session. Skilled Therapy Needs After Discharge Anticipate Resolution of Current Assessment Limitations Including: Mechanical Barriers Are Skilled Therapy Services Needed After Discharge: Yes Intensity of Skilled Therapy: Up to 5 days per week Anticipated Duration of Skilled Therapy: > 30 days DME Recommendation: To be determined at next level of care DME Rationale: Patient's condition creates an increased risk of safety hazard without recommended equipment, Patient's condition prevents him/her from accomplishing ADL without recommended equipment Rehab Potential: Fair, For goals Outcomes Measures Prior Function Daily Activity: Raw Score: 24 Prior Function Daily Activity % Impaired: 0% functionally impaired AM-PAC Daily Activity: Raw Score: 13 AM-PAC Daily Activity % Impaired: 63.03% functionally impaired Therapy Precautions Orthotic Devices: Yes Spine / Trunk: (helmet no bone flap) Upper Extremity: Left(L resting hand splint ) Weight Bearing Status: WFL General Rehab Precautions: Fall risk Cognition Overall Cognitive Status: Impaired Arousal/Alertness: Delayed responses to stimuli Orientation Level: Oriented X4 Executive functioning: Mod impairment Safety Judgment: Decreased awareness of need for assistance, Decreased awareness of need for safety Problem Solving: Assistance required to identify errors made, Assistance required to generate solutions, Assistance required to implement solutions Attention: Attends to quiet environment Hearing Status: [facility] Social Interaction: Cooperative, Global impairment Comments: Pt following single step commands with cues for safety and sequencing. Skilled Intervention: Self directing of session, requires cues for safety and sequencing. ADL/IADL UE Dressing: Supervision(don/doff helmet) LE Dressing: Dependent Toileting : Dependent Skilled Intervention: Provided helmet for OOB activity. Pt able to don with cues and doff when returned to supine. Bed Mobility Supine to Sit: Max, 2 person assist Sit to Supine: Max, 2 person assist Skilled Intervention: Provided compensatory strategies for LLE advancement and LUE protection. Two person assist to complete. Exercise Seated Exercises: Provided education on methods of performing self PROM to LUE. Pt resistive initially to trials d/t reports of pain in L shoulder however with encouragement pt completes hand, wrist,and elbow with cues for safe hand positioning Interventions Balance Training: Standing reaching activities Skilled Intervention: Pt participating in seated reaching activities to improve sitting balance.Significantly retropulsive requiring MAX to maintain. Reaching for common ADL items and placing on R side. Pt requires cues to maintain attention to task. Home Living Type of Home: House Home Layout: One level(2STE no rail (able to install if needed)) Bathroom Shower/Tub: Tub/shower unit Bathroom Toilet: Standard Bathroom Equipment: (none) Additional Comments: Pt unable to provide info. 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 This note stands as the current Discharge Summary upon patient discharge from the hospital or completion of Occupational Therapy Plan of Care. * Marian Kaur MD - 10/12/2019 1:36 PM EDT [employer] Inpatient Progress Note 10/12/2019 Johnathan Gonzalez 1975 [id number] Assessment/Plan: Johnathan Gonzalez is a 44 y.o. male with a history of HTN who presented to [facility] 05/25/[address] [facility] after being found unresponsive, he was found to have right MCA CVA with malignant edema and acute respiratory failure requiring intubation. He was admitted to [facility] and underwent craniectomy 05/26/19. Course complicated by trach/PEG, PNA, and right ICA dissection. Tracheostomy decannulated 07/03/19 and PEG tube removed 08/11/19. Course prolonged secondary to placement issues. 1. Acute Right MCA CVA with Malignant Edema: [facility] after being found [facility] CTA head/neck 05/25/19 with right ICA occlusion, concern for dissection. CT head05/26/19 with increased mass effect and increased midline shift, underwent craniectomy 05/26/[address] Rankin ([facility]). MRA neck 05/27/19 with right ICA dissection. TTE 05/26/19 with preserved LVEF and negative bubble study. Continued ASA/statin. Reconsulted Dr. Rankin of [facility] 09/05 who felt best to perform surgery (cranioplasty) only when adequate support system established (likely outpt). Discussed Case with Dr. Rankin per pt request. Surgery is deemed elective and is now going to be further delayed due to COVID 19 restriction of elective procedures. Pt is to follow up with [facility] as outpatient. 2. LLE Pain: Knee distal, posterior, acute onset. Later localized to joints with some edema. LE Duplex 08/26/19 unremarkable. Repeat CPK WNL. Supportive care for now. Titrated Neurontin dose with doseincreased 09/28/19. 3. Adjustment Disorder: concerned that patient was depressed in the setting of severe debility and lack of family support. Patient's recently lost her job and has not been present throughout patient's hospitalization. Behavioral Medicine followed. 4. Tracheitis/Bronchitis: Completed course of Levaquin 07/24/19. Infectious workup was otherwise unremarkable except urine culture 07/21/19 grew klebsiella/enterococcus which was adequately treated with Levaquin. Resolved. 5. Acute Hypoxic Respiratory Failure: secondary to CVA and malignant edema. S/p tracheostomy 06/09/19. Weaned off vent and decannulated 07/03/19. Resolved to room air. 6. Left Hip Myositis: noted to have severe left hip pain with movement. Left hip x-ray 06/29/19 unremarkable. Left hip joint aspiration 06/30/19 with no fluid removed. Left hip MRI 07/01/19 demonstrated complex, heterogeneous, rim enhancing collection measuring 1.6 x 3.7 cm within the left gluteus medius muscle with surrounding myositis. Ortho and VIR followed; per VIR imaging diffuse inflammation and nothing to aspirate. ID followed at the time and no abx were indicated. Blood cultures x2 07/02/19 negative. Repeat MRI left hip in setting of ongoing pain 07/09/19 showed continued inflammation. ID recommended 5 day course of steroids which patient completed 07/14/19. Suspect possible neuropathy due to inflammation, trial of Neurontin with dose titrated 09/28/19 7. Dysphagia: secondary to CVA, s/p PEG 06/09/19- 08/11/19. Tolerating regular diet. 8. Acute Encephalopathy: secondary to above, cEEG 06/06/19-06/08/19 negative for seizures. Resolved largely, but with some memory deficits and delayed responses. 9. VAP: noted 06/01/19 with CXR showing RLL consolidation. Sputum culture 05/31/19 with moderate growth stenotrophomonas. Completed 8 day course of levaquin 06/09/19. Resolved. 10. Abnormal Urine: noted to be dark brown 06/21/19 with grossly abnrmal U/A. CT abd/pelv 06/22/19 with mild obstructive uropathy on left side and small intrarenal non-obstructing stones B/L. Urine cytology 06/22/19 negative for high-grade urothelial carcinoma, noted chronic inflammation. Urine culture 06/22/19 negative. Urology followed, recommended O/P f/u with Dr. Lind to complete hematuria work-up. 11. Not For Resuscitation: DNR-CCA, per discussion with by NCC team. 12. DVT Prophylaxis: lovenox SQ. Current living situation: home Expected disposition: SNF, medicaid pending; patient does not have capacity for medical decision making: may need guardianship per SW. Estimated discharge date: TBD Subjective: No acute issues overnight This morning pt frustrated about dispo plan and wants cranioplasty performed. Discussed with SW/CM during multidisciplinary rounds, medicaid is still pending as of 10/12/[address] Rankin - pt to follow outpt for surgery planning. Surgery is deemed elective and is now going to be further delayed due to COVID 19 restriction of elective procedures. Pt is to follow up with NS as outpatient. Physical Exam: BP 119/89 (BP Location: Right arm, Patient Position: Lying) Pulse 93 Temp 97.9 F (36.6 C) (Oral) Resp 16 Ht 5' 10 Wt 78.4 kg (172 lb 13.5 oz) SpO2 94% BMI 24.80 kg/m General: NAD, alert, right craniectomy, resting in bed Eyes: EOMI, anicteric ENT: neck supple, on room air Cardiovascular: Regular rate. No murmur. Respiratory: Clear to auscultation, unlabored on RA Gastrointestinal: Soft, non tender : no suprapubic tenderness Musculoskeletal: all 4 extremities intact, increased tonicity LLE Skin: warm, dry Neuro: Awake and Alert. Left hemiparesis Psych: Mood calm, cooperative Current Medications: aspirin 81 mg Oral Daily atorvastatin 80 mg Oral Nightly enoxaparin (LOVENOX) injection 40 mg Subcutaneous Daily famotidine 20 mg Oral Nightly gabapentin 900 mg Oral Q8H ELIER lidocaine 2 patch Transdermal Daily polyethylene glycol 17 g Oral Daily senna 2 tablet Oral BID Labs, Imaging and Studies reviewed: Results from last 7 days Lab Units 10/08/19 1310 WBC K/mcL 9.10 HGB g/dL 13.9 HCT % 42.7 PLT K/mcL 259 Results from last 7 days Lab Units 10/08/19 1310 SODIUM mmol/L 141 POTASSIUM mmol/L 4.1 CHLORIDE mmol/L 104 BICARB mmol/L 26 BUN mg/dL 17 CREATININE mg/dL 0.89 EGFR mL/min/1.73 m2 103 GLUCOSE mg/dL 147* CALCIUM mg/dL 9.7 PHOSPHORUS mg/dL 4.0 * Chanda Montaño, ADMINISTRATIVE SUPERVISOR - 10/12/2019 9:21 AM EDT COMPLEX DISCHARGE Date: 10/12/2019 Time: 11:47 AM Patient Name: Johnathan Gonzalez Date of : 1975 Sex: Male AREA FIELD PERSON provided update regarding Medicaid beryl to pt, and potential timeline for approval. Pt adamant that he has insurance and that AREA FIELD PERSON needs to call [employer] to confirm, states that he talked to his Saturday and that he is tired of having to do you people's jobs. AREA FIELD PERSON called both of 's provided phone numbers; unable to leave message. Medicaid beryl submitted by [facility]'s HRS dept 09/30. Medicaid pend Patient Information Primary Caregiver: Self Discharge Planning Living Arrangements: Spouse/significant other Support Systems: None Functional Status: Maximum assistance Assistance Needed: Maximum Type of Residence: Private residence Prior to Admission Home Care Services: No Patient expects to be discharged to:: (Pt wants to be dc home.) Does the patient need discharge transport arranged?: No Current Home Equipment: None Anticipated HME: Undetermined Anticipated Home Care Needs: Undetermined Anticipated Facility Type: [facility] facility Insurance Coverage for Prescriptions: No Anticipated Discharge Plan Anticipated HME: Undetermined Anticipated Home Care Needs: Undetermined Anticipated Facility Type: [facility] facility Potential for Readmission Potential for Readmission: Yes Potential for Readmission Reason: Rising Risk Rate Discharge Readiness Expected Discharge Date: 10/12/19 Barriers to Discharge: Other (Comment)(Medicaid pending for LTC) [facility] Disposition D/C Disposition: Intermediate Care Facility Agency/Destination: Other Estimated Length of Stay (ELOS): 14 ELOS Discussed with Patient / Family?: Yes Same As Recommended : yes PAS/RR: PAS Transportation Type: Ambulance Transportation Company/Agency Name: [facility] Options Reviewed: List provided, Possible expense, Explained services/benefits Reason for Choice: Patient/Family preference Assessments Diagnosis Carotid artery dissection (HCC) Dissection of carotid artery Cerebrovascular accident (CVA), unspecified mechanism (HCC) Respiratory failure, unspecified chronicity, unspecified whether with hypoxia or hypercapnia (HCC) Cerebrovascular accident (CVA) due to occlusion of right carotid artery (HCC) Dysphagia, unspecified type Cerebrovascular accident (CVA) due to thrombosis of right carotid artery (HCC) Oropharyngeal dysphagia Dysphagia, oropharyngeal phase Acute encephalopathy Cognitive impairment Unspecified persistent mental disorders due to conditions classified elsewhere Left leg pain Pain in soft tissues of limb Left hip pain Pain in joint, pelvic region and thigh Adjustment disorder Unspecified adjustment reaction Chief Complaint and Reason for Visit Chief Complaint RECTAL INFLAMMATION PNEUMONIA DYSPENA ABD PAIN Reason for Visit Acute gangrenous cho lecystitis Community acquired pneumonia Hydrops of gallbladder History of cerebrovascular accident Lactic acidosis Obesity Proctitis Severe Sepsis Chief Complaint CHEST PAIN Reason for Visit Chest pain Anxiety Depression Chief Complaint CHEST PAIN 1. NAUSEA VOMITING #2 DIAPHORESIS #3 BRIEF RUN OF Reason for Visit Chest pain Excessive sweating Hypertension Nausea and vomiting Chief Complaint CHEST PAIN 1. NAUSEA VOMITING #2 DIAPHORESIS #3 BRIEF RUN OF Reason for Visit Chest pain Constipation Excessive sweating Hypertension Nausea and vomiting Chief Complaint CHEST PAIN 1. NAUSEA VOMITING #2 DIAPHORESIS #3 BRIEF RUN OF Reason for Visit Chest pain Acute gastritis with hemorrhage Constipation Excessive sweating Nausea and vomiting Urinary tract infection Benign prostatic hyperplasia Hypertension Chief Complaint Admit Date FAILURE TO THRIVE CHRONIC LEFT HEMIPLEGI A UNABLE October 26, 2024 5:14pm Reason for Visit Admit Date Failure to Thrive in Adult October 26, 2 025 5:14pm Hypokalemia October 26, 2024 5:1 4pm Loss of functional autonomy in activities of daily living (ADLs) October 26, 2024 5:14pm Chief Complaint Admit Date PRE COLONOSCOPY January 15, 2025 8:59 am Reason for Visit Admit Date Screening for malignant neoplasm of colo n January 15, 2025 8:59am Reason for Referral Specialty Diagnoses / Procedures Referred By Contami t Referred To Contact Rehabilitation Diagnoses Skull defect History of cranioplasty Cognitive impairment Adjustment disorder, unspecified type Left hip pain Dysphagia, unspecified type Cerebrovascular accident (CVA) due to thrombosis of right middle cerebral artery (HCC) Sujey Haynes MD [address] [facility] [address] [place] [address] Referral ID Status Reason Start Date Expiration Date Visits Requested Visits Authorized [id number] Authorized Specialty Services Required/Pat ient's Best Interest 09/30/2023 09/29/2024 1 1 Specialty Diagnoses / Procedures Referred By Contac t Referred To Contact Radiology Diagnoses Cerebrovascular accident (CVA) due to thrombosis of right middle cerebral artery (HCC) Procedures CT Head Or Brain Without Contrast Wilton Rankin MD [address] [facility] [address] [place] [address] Referral ID Status Reason Start Date Expiration Date V isits Requested Visits Authorized [id number] New Request 05/15/2023 05/14/2024 1 1 Additional Source Comments (unrecognized sect ion and content) No Status Records FoundNo Status Records FoundNo Status Records FoundNo Status Records FoundNo Status Records FoundNo Status Records FoundNo Status Records FoundNo Status Records FoundNo Status Records Found INFORMATION SOURCE (unrecogn ized section and content) DATE CREATED AUTHOR 06/27/2019 [facility] DATE CREATED AUTHOR AUTHOR'S ORGANIZ ATION 06/29/2023 [facility] DATE CREATED AUTHOR AUTHOR'S ORGANIZ ATION 07/30/2023 [facility] DATE CREATED AUTHOR AUTHOR'S ORGANIZ ATION 10/31/2023 [facility] DATE CREATED AUTHOR AUTHOR'S ORGANIZ ATION 10/31/2023 [facility] DATE CREATED AUTHOR AUTHOR'S ORGANIZ ATION 11/02/2024 [facility] DATE CREATED AUTHOR AUTHOR'S ORGANIZ ATION 12/04/2024 [facility] DATE CREATED AUTHOR AUTHOR'S ORGANIZ ATION 02/13/2025 [facility] DATE CREATED AUTHOR AUTHOR'S ORGANIZ ATION 03/13/2025 [facility] Reason for Visit (unrecogniz ed section and content) Reason Comments Stroke Alert Status Reason Specialty Diagnoses / Procedures Referre d By Contact Referred To Contact Diagnoses Carotid artery dissection (HCC) Cerebrovascular accident (CVA), unspecified mechanism (HCC) Stroke Alert Specialty Diagnoses / Procedures Referred By Contac t Referred To Contact Diagnoses Skull defect Skull defect [M95.2] Procedures [place] RPLCMT BONE FLAP/PROSTHETIC PLATE SKULL Wilton Rankin MD [address] [place] [address] Referral ID Status Reason Start Date Expiration Date Visits Re quested Visits Authorized [id number] 09/05/2023 1 1 Reason Comments Post-op Reason Comments Shortness of Breath Reason Comments Eye Problem Luc Farmer MD - 06/09/2019 3:[address] - 06/09/2019 11:56 AM ESTGoodall, Keerthi Segal CNP - 05/26/2019 1:25 AM EST H&P Notes (unrecognized sect ion and content) INTERVAL HISTORY AND PHYSICAL Patient Name: Johnathan Gonzalez Admit Date: [id number] MR #: [id number] : 1975 The H&P has been reviewed and the patient has been examined. I concur with the findings of the H&P. There are no significant changes. It is appropriate to proceed with the planned procedure. Luc Farmer MD 06/09/2019 3:22 PM Nutrition Care Follow Up Monitoring and Evaluation: Pt received 87% of prescribed tube feeding volume during the past 3 day(s). Planning trach/PEG today Nutrition Diagnosis: Inadequate oral intake related to acute hospitalization with respiratory failure requiring intubation as evidenced by NPO, need for enteral nutrition. Not resolved PLAN OF CARE Nutrition Intervention: Modify Enteral Nutrition Recommendation(s): weaned from propofol, transitioned to precedex. Adjust EN to meet updated requirements. Nutrition Prescription: Impact Peptide 1.5 @ goal 50 ml/hr to provide 1800kcal, 113g protein, 924ml H2O. Nutrition Goal(s): Daily intake goals: Estimated Energy Needs Total Energy Estimated Needs: 1736-2130kcal Method for Estimating Needs: 22-27kcal/kg IBW for BMI 24.9 Total Protein Estimated Needs: 95-119grams Method for Estimating Needs: 1.2-1.5g/kg IBW for BMI 24.9 Plan weekly evaluation of documented/estimated intake vs daily intake goals. Nutrition Education: No needs at this time Assessment: Pertinent clinical information: Trach/PEG today. EN on hold, has been on Peptamen Intense VHP at goal 60 ml/hr. Wound(s): Surgical incision Skin Integrity: Generalized edema GI Function: FMS Most recent weight: 86.3 kg (190 lb 4.1 oz) Weight has been trending down, IV diuresis Weight hx: Admission weight 93.7 kg Wt Readings from Last 5 Encounters: 06/08/19 86.3 kg (190 lb 4.1 oz) Labs: Recent Labs 06/07/19 1812 06/09/19 0330 NA -- < > 134* K -- < > 4.5 BICARB -- < > 22 CL -- < > 100 GLUCOSE -- < > 150* BUN -- < > 35* CREATININE -- < > 1.10 MG 2.1 -- -- < > = values in this interval not displayed. Scheduled Meds: aspirin 81 mg Tube Daily atorvastatin 80 mg Tube Nightly chlorhexidine 15 mL Swab BID furosemide 20 mg Intravenous BID heparin (porcine) 5,000 Units Subcutaneous Q8H ELIER senna-docusate 1 tablet Tube BID Continuous Infusions: dexmedetomidine (PRECEDEX) infusion 1 mcg/kg/hr (06/09/19 0900) sodium chloride 0.9 % NERY Schuler History and Physical Examination Assessment and Plan Johnathan Gonzalez is a 44 y.o. male with a past medical history of HTN (untreated) and syncope who was transferred from [facility] to [place] 05/25/2019 with a R MCA stroke and acute respiratory failure. Neurological R MCA/JOSIANE ischemic stroke Remote LKW, completed stroke on imaging CTA: R ICA occlusion carotid bulb to the carotid terminus, occlusion of the R MCA and A1 segment of the R JOSIANE, possibly secondary to dissection No tPA due to remote LKW, no EVT due to completed infarct on CTH BP goal < 220/120 ASA, atorvastatin A1C 5.3, blood glucose goal 80-180 Lipid panel pending Repeat CTH 05/26 am PT/OT/ST Hyperosmolar therapy with 3% NaCl IVF to limit cerebral edema Neurosurgery consulted for hemicraniectomy watch Neurology consulted Cardiac HTN, per history Does not take home antihypertensives Goal BP < 220/120 History of syncope Troponin WNL EKG pending TTE pending Pulmonary Acute respiratory failure Intubated at [facility] for airway protection Ventilator settings: PRVC 12/430/50/5 Titrate FiO2 to maintain SpO2 90-95% HOB elevated, peridex SAT/SBT when neuro status allows Renal sCr 1.12 mg/dL, lytes WNL Euvolemia goal Hyperosmolar therapy with 3% NaCl IVF to achieve goal sNa 145-160 ID Afebrile WBC 19.09, likely reactive Hematology Hgb 15.1, plts 238K, INR 1.0 Endocrine No history of diabetes or thyroid disorder HbA1C 5.3 GI/Hepatic/Nutrition Initiate tube feedings Senna for bowel regimen Prophylaxis SCDs. Marek Reviewed case with Dr. Tate, stroke program coordinator Keerthi Johnson [facility] Virtual Number [phone] Neurocritical Care Service Chief Complaint: Stroke History of Presenting Illness: Johnathan Gonzalez is a 44 y.o. male with a past medical history of HTN (untreated) and syncope who was transferred from [facility] to [place] 05/25/2019 with a R MCA stroke and acute respiratory failure. He was LKW on 05/24 at 23:00. He did not answer phone calls on 05/25, prompting a wellness check by a friend. He was found on the floor with vomitus near him. His friend lifted him into a chair and noted that he was weak on his left side. EMS transported him to the [facility] where a CTH showed a R MCA infarct. He was intubated and transferred to [facility] for further evaluation. Noncontrast CTH at [facility] showed a large acute to subacute infart in the R MCA territory with effacement over the cortical sulci but no MLS, CTA head and neck identified a right ICA occlusion just beyond the carotid bulb extending to the carotid terminus. There is occlusion of the R MCA and A1 segment of the R JOSIANE, possibly secondary to dissection. He is admitted to [facility] for further evaluation and management. Review of Systems: [x] Unable to obtain due to intubation and/or neurologic status. Past Medical, Surgical, Family, and Social History: Past Medical History: Diagnosis Date Hypertension Syncope Foot surgery, repair of soft tissue injury L arm Family History: Mother: stroke Social History: Tobacco: Past smoker 1-2 PPD, quit 20 years ago. Uses smokeless tobacco Alcohol: 12 pk beer per week Drugs: None. Allergies and Medications: Allergies: No Known Allergies Hospital medications reviewed. Home medications: Prior to Admission medications Not on File Exam: Vital Signs: Temp: [97.4 F (36.3 C)-100.2 F (37.9 C)] 100.2 F (37.9 C) Heart Rate: [59-100] 76 Resp: [15-29] 22 BP: (135-190)/(93-116) 155/103 FiO2 (%): 100 No intake/output data recorded. General: 44 y.o. male, critically ill, intubated, on mechanical ventilation. No acute distress apparent. Head/Neck: Head - Normocephalic. Eyes - Sclerae anicteric, PERRL. Ears - External ears normal. Nose: Normal. Mouth - OETT/OGT. Neck - Supple, trachea is midline. Cardiovascular: Regular rate and rhythm. No clicks, rubs, murmurs, or gallops noted. Peripheral extremity pulses are palpable. Respiratory: Easy respirations, CTA with good air entry, =BS with symmetrical chest rise. Abdominal: Soft, nondistended, nontender, decreased bowel sounds. No appreciable masses or HSM. Musculoskeletal: No obvious long bone deformity. Extremities: Well perfused. No clubbing, cyanosis, or edema noted. Neurological: No eye opening. PERRL at 3 mm. EOMI. Regards. + cough and gag reflexes. Follows commands with R sided extremities. Moves LUE to noxious stimuli with a muscle flicker. Withdraws LLE slightly to noxious stimuli. Skin: Normal turgor, well-hydrated, no diffuse rash appreciated. NIHSS: 1a LOC:2 1b LOC:2 1c LOC:2 2 gaze:0 3 visual santiago:0 4 facial palsy:1 5a left arm:3 5b right arm:2 6a left le 6b right le 7 ataxia:0 8 sensory:0 9 language:3 10 dysarthria:UN 11 extinction:0 Total:20 Clinical Data: [x] Lab data reviewed. [x] Most recent CT and CXR images reviewed. Recent Labs 05/25/192203 WBC 19.09* HGB 15.1 PLT 238 Recent Labs 05/25/192203 NA 141 K 4.1 CL 102 BICARB 27 BUN 14 CREATININE 1.12 GLUCOSE 132* CALCIUM 9.3 BILITOT 0.6 ALKPHOS 86 ALT 19 AST 26 PROT 6.9 ALBUMIN 3.8 Recent Labs 05/25/19215205/25/192203 INR 1.0 1.0 Associated attestation - Arun Lopez MD - 05/26/2019 5:20 PM EST I have independently examined and reviewed this case and discussed the assessment and plan of care with the practitioner. I agree with the assessment and plan as provided above. The SALES REPRESENTATIVE DOOR TO DOOR completed the initial history taking and physical examination. The assessment and plan was coordinated with myself and I independently completed a separate history and physical examination in a face to face encounter. Clarifications and differences in my assessment are described below. For hemicraniectomy this AM. Post-op NCHCT with expectd changes and some minimal SDH at surgical site. Continue HTS for now with Na goal 145-160. Nl EF and no thrombosis on TTE. SBP goal < 160 mm Hg. MR fat sats when able to look for dissection as etiology. Consideration of DWAYEN and hypercoag work-up depending on results of MRA.documented in this encounter Janny Connor PA-C - 08/11/2019 8:57 AM ESTMichelle Palmer SLP - 07/09/2019 7:31 AM Michelle Tracy SLP - 07/09/2019 7:30 AM Carlyn Cook SLP - 06/27/2019 8:28 AM EST Procedure Notes (unrecognize d section and content) Procedure(s): PEG TUBE REMOVAL Pre-Procedure Diagnose(s): Oropharyngeal dysphagia; Gastrostomy present (HCC) Post-Procedure Diagnose(s): PEG (percutaneous endoscopic gastrostomy) adjustment/replacement/removal (HCC) Patient had PEG placed on 06/09/19 for dysphagia and feeding difficulties along with Trach r/t ischemic CVA. Patient has recovered and has been cleared to eat regular solids/thin liquids diet. He has been eating adequately per documentation and PEG has not been used. At the bedside, a traction pull PEG tube removal was performed. Pressure was applied to the site after and gauze applied. The patient tolerated the procedure well and there were no noted complications. Ok to resume diet, tract should close in a few hours. Dr. Goodman (GI) was present to supervise. GI available as needed. [facility] Speech Language Pathology Modified Barium Swallow Study Procedure Notes - Final Patient: Johnathan Gonzalez Date of : 1975 General Information: General Information Ordering Physician: Regan Josue Radiologist: Dr. Garrett Date of Evaluation: 07/09/19 Type of Study: Repeat MBS Mental Status: Alert, Cooperative Oral Status: Permanent teeth Respiratory Status: Room air Feeding: Self (with assist) View: Lateral Study Limitations: nausea prior to exam, pt comfortable to proceed. R drift. Diet Prior to this Study: Ground / mechanical, [place] Liquid Recommendations: Ground diet and thin liquids, see recommendations below. Textures Used: Textures used: Thin spoon, Thin cup, Thin straw, [place] spoon, [place] cup, Honey spoon, Pureed spoon, Ground mechanical Oral Phase: Oral Preparation/Oral Phase Oral Phase: Mild-moderate Initiation: Impaired sensation Lipseal: Anterior leak left Lingual Control: Unable to hold bolus, inconsistent Lingual Coordination: Slow A-P transit Lingual Strength: Oral stasis, Trace-small amount, Stasis flow to pharynx Buccal Weakness: Right- Risk for pocketing Residue Clearance: Stasis flow to pharynx, Cued repeat swallow (appears effective in clearance) Mastication: Extended time, munching pattern Pharyngeal Phase: Pharyngeal Phase: Mild Delayed Swallow: 5-7second delay (variable, <1 second delay as well) Delay Swallow Inititated at: Valleculae, Pyriforms Velopharyngeal Closure: Appears functional Tongue Base Retraction: Minimal-mild, Partial epiglottic movement Anterior Excursion: Partial movement Laryngeal Elevation:Minimal-mild Partial epiglottic movement Pharyngeal Constriction: Appears WFL Supraglottic Closure: Penetration during Swallow(grossly transient) Vocal Cord Closure: Aspiration During Swallow(1x) Pharyngeal Sensation: Delayed pharyngeal swallow Laryngeal Sensation: Silent aspiration(cued cough to clear) Esophageal Phase: Esophageal Phase Esophageal Phase: Appears WFL during the swallow, difficult to visualize 2/2 positioning Penetration: Penetration Present?: Yes Penetration Characteristics: Trace amount, Transient, During swallow, Consistent Consistencies Penetrated: Thin teaspoon, Thin cup, Thin straw, [place] teapson, [place] cup Caused by: Pharyngeal swallow delay, Reduced supraglottic closure, Partial epiglottic inversion Response: Able to clear Is there a Second Penetration?: Yes(See Aspiration below) Aspiration: Aspiration Present?: Yes First Aspiration Occurance Characteristics: Inconsistent- 1x, Trace amount, During swallow Consistencies Aspirated: [place] cup Caused By: Pharyngeal swallow delay, large bolus size, 2 swallows to clear from oral cavity Response: Cued cough, Able to clear- partially ejected d/t laryngeal closure Second Aspiration?: No Recommendation: Recommendations PO Recommendations: Ground mechanical, Thin liquid Strategies: Check pocketing left, Double swallow liquids, Double swallow food Posture: Sit 90 degrees Food Presentation: Small bites, Food placement right Liquid Presentation: Small sips, Liquids by cup, Liquids by straw Medication Presentation: Crushed in puree Amount of Supervision: Nursing / Staff supervision, 100% supervised, Physical assistance required Treatment Techniques: Train feeding / swallowing strategies, Oral / motor exercises, Bolus manipulation exercises, Thermal tactile stimulation, Tongue base exercises, Laryngeal elevation exercise, Therapeutic trials, Solids Further Recommendations: Oral care TID, FEES prior to D/C swallow strategies, MBS prior to D/C swallow strategies, Assess for diet tolerance, Evlauate diet upgrade Skilled Therapy Needs: Are Skilled Therapy Services Needed After Discharge: (at discretion of treating FLEXBOARD OPERATOR) MBS Preliminary Findings Consistencies given: thin liquid, nectar, honey, pudding and soft solid Penetration/Aspiration: aspiration of nectar x1 Preliminary Impression: mild-mod oral dysphagia,mild pharyngeal dysphagia Preliminary diet recommendations- Liquids: thin Preliminary diet recommendations- Solids: ground This note stands as the interim note until full review of the study can be completed. Preliminary recommendations and impressions are subject to change. Full [facility] Study Procedure Note to follow with final recommendations and impressions. [facility] Speech Language Pathology Modified Barium Swallow Study Procedure Notes - Final Patient: Johnathan Gonzalez Date of : 1975 Pt presents with moderate to severe oropharyngeal dysphagia characterized by decreased oral control, decreased laryngeal sensation, reduced hyo-laryngeal elevation and reduced supraglottic closure. Pt unable to maintain adequate positioning throughout study, making it difficult to visualize aspiration. Penetration and/or aspiration occurred with all consistencies. PSMV was also placed towards end of study but did not reduce penetration/aspiration events. Trials limited during study given high aspiration risk and poor positioning. May consider FEES when patient is appropriate for repeat instrumental. Recommend pt remain NPO with ad terminal makeup operator nutrition. General Information: General Information Date of Onset: 06/24/19 Date of Evaluation: 06/27/19 Type of Study: Initial [facility] Mental Status: Alert Oral Status: Permanent teeth Respiratory Status: Trach, Size 8, Deflated cuff, Speaking valve View: Lateral Study Limitations: Poor positioning Diet Prior to this Study: NPO, PEG Textures Used: Textures used: Thin spoon, [place] spoon, Honey spoon Oral Phase: Oral Preparation/Oral Phase Oral Phase: Moderate Lipseal: Anterior leak midline Lingual Control: Loss of bolus to pharynx, Unable to hold bolus Lingual Coordination: Tongue pumping, Slow A-P transit Lingual Strength: Trace, Oral stasis Mastication: (did not attempt due to aspiration risk) Pharyngeal Phase: Pharyngeal Phase: Mod-severe Delayed Swallow: 1-2 second delay Delay Swallow Inititated at: Pyriforms Tongue Base Retraction: Moderate, Partial epiglottic movement, Valleculae residue Vallecular Residue Flow to Pyriforms: Cued repeat swallow, Partial clearance Anterior Excursion: Partial movement Laryngeal Elevation: Mod, Partial epiglottic movement Supraglottic Closure: Penetration during Swallow Vocal Cord Closure: Aspiration During Swallow Pharyngeal Sensation: Delayed pharyngeal swallow Laryngeal Sensation: Silent aspiration Esophageal Phase: Esophageal Phase did not appear to interfere with oropharyngeal swallow function Penetration: Penetration Present?: Yes Penetration Characteristics: Small amount, Deep, To the vocal folds, During swallow, After swallow Consistencies Penetrated: [place] teaspoon Caused by: Reduced supraglottic closure, Partial epiglottic inversion, Residue overflow, Uncoordinated swallow Response: No cough, Unable to clear (Difficult to visualize due to positioning of patient) Aspiration: Aspiration Present?: Yes First Aspiration Occurance Characteristics: Small amount, During swallow Consistencies Aspirated: Thin teaspoon Caused By: Impaired oral control, Partial epiglottic inversion, Reduced supraglottic closure Response: No cough, Unable to clear Second Aspiration?: Yes (suspected but difficult to visualize) Second Aspiration Occurance Characteristics: Small amount, During swallow Consistencies Aspirated: Honey teaspoon Response: Spontaneous cough, Unable to clear Strategies Used: Cough / clear throat, Ineffective Recommendation: Recommendations NPO Recommendations: No trial feed, Until re-assess, ad terminal makeup operator alternative nutrition Treatment Techniques: Bolus manipulation exercises, Tongue base exercises, Laryngeal elevation exercises, Therapeutic trials of ice chips with FLEXBOARD OPERATOR Further Recommendations: FEES prior to PO, MBS prior to PO Factors for Returning to Prior Level of Function Body Structure and Function: (Defer to treating therapist) Skilled Therapy Needs: Are Skilled Therapy Services Needed After Discharge: (Defer to treating therapist) MBS Preliminary Findings Consistencies given: thin liquid, nectar and honey Penetration/Aspiration: aspiration of thin, suspected aspiration of nectar and honey Preliminary Impression: severe oropharyngeal dysphagia Preliminary diet recommendations- Liquids: NPO Preliminary diet recommendations- Solids: NPO This note stands as the interim note until full review of the study can be completed. Preliminary recommendations and impressions are subject to change. Full [facility] Procedure Note to follow with final recommendations and impressions. Associated Order(s): Bronchoscopy Post-Procedure Diagnose(s): Respiratory failure, unspecified chronicity, unspecified whether with hypoxia or hypercapnia (HCC); Cerebrovascular accident (CVA) due to thrombosis of right carotid artery (HCC) Bronchoscopy Date/Time: 06/09/2019 3:21 PM Bronchoscopy performed as part of percutaneous tracheostomy A time out was taken prior to the procedure. The procedure occurred in excess of time dedicated to critical care for the day. It is the professional opinion of the physicians caring for this patient that the tracheostomy is medically indicated for treatment of this patient s chronic respiratory failure at this time. In this patient s case, there are no alternative procedures that are consistent with [id number]. Without the tracheostomy, the patient can be reasonably expected to develop complication related to prolonged intubation including tracheomalacia, infection, and increased risk during future tracheostomy placement. A tracheostomy is generally well-tolerated and poses considerably less risk to the patient than would respiratory failure. The patient lacks capacity for medical decision making at this time due to his intracerebral hemorrhage. The patient is not expected to recover capacity to make medical decisions in time to make this medical decision. Sedation: Fentanyl 200 mcg Versed 4 mg rocuronium 90 mg Machinery Dismantler: Robbi Waller MD Supervision: Dr. Rodas Bronchoscope inserted via swivel connector in ETT. ETT well positioned 4 cm above trent. No irritation or petechiae of airway. Trace clear mucous suctioned from R mainstem bronchus. Landmarks identified for percutaneous trach and tracheal puncture directly visualized. Please refer to tracheostomy procedure note for full procedure details. ETT withdrawn. Bronchoscope inserted through trach lumen and cannulation of trachea confirmed. Mild hemorrhage noted. Bronchoscope withdrawn. Lung volumes preserved. No complications. Robbi Waller MD, MHDS, NCS Neurocritical Care 06/09/19 3:25 PM Associated Order(s): EEG ENTRY LEVEL FINANCIAL ANALYST MONITORING Continuous EEG Final Report Indication for Study: Monitoring for epileptic seizures EEG Start Time: 06/06/2019 at 12:20 hours EEG Stop Time: 06/08/2019 at 10:56 hours Clinical Summary: Pt is a 44 y.o. year old male with Right MCA CVA; AMS. Patient is undergoing EEG monitoring for capture of clinical and/or sub-clinical electrographic seizures. Conditions of Recording This study was performed using a 28-lead digital electroencephalographic array, with data analyzed across multiple montages. Direct video visualization of the patient is utilized during the study, as is automated seizure detection software. A single EKG lead is utilized throughout the recording. EEG Description Background activities are initially noted on 06/06 into 06/07/19 as poorly developed, with diffuse Delta-range slowing predominating, and with additional superimposed Right Hemispheric relative suppression also noted. There are no definitive Interictal Epileptiform Discharges and NO Electrographic seizures occur. As study progresses through prior day of recording and into 06/08/19, there is relative stability in background, with mild lightening of suppression, manifesting as lower-amplitude Delta-range activities in the setting of active sedation (Propofol). There are no interictal epileptiform discharges or electrographic seizures noted during this epoch. There are no electrographic correlates to clinically reported episodes of eye deviation or somatic shaking. Summary This is an abnormal EEG study due to the presence of a Moderate Electrographic Encephalopathy, with Right Hemispheric focal slowing, suggestive of an age-indeterminate structural abnormality. There are no interictal epileptiform discharges or electrographic seizures captured. Monitoring is discontinued given achievement of stated goals. Akash Vigil MD, ABPN, FAES Adult Epileptologist & Neurologist [facility] A Level 4, [facility]-Certified [facility] Associated Order(s): EEG ALF MONITORING Final Continuous EEG Report Indication for Study: Monitoring for epileptic seizures EEG Start Time: 05/28/2019 at 15:06 hours EEG Stop Time: 05/28/2019 at 21:09 hours Conditions of Recording This is a chcf video-eeg study performed using a 28-lead digital electroencephalographic array, with data analyzed across multiple montages. Direct video visualization of the patient is utilized during the study, as is automated seizure detection software. A single EKG lead is utilized throughout the recording. Clinical Summary: Pt is a 44 y.o. year old male with a R MCA ischemic stroke and AMS. Patient is undergoing EEG monitoring for capture of clinical and/or sub-clinical electrographic seizures. EEG Description The patient's background activity during the initial portion of the record consists of low to moderate voltage primarily theta and delta activity. There is not the presence of a posterior dominant rhythm during periods of wakefulness that is reactive to eye opening and closure. Sleep features were not seen.. There is judged to be some increased slowing in the right hemisphere based on a paucity of faster frequencies. There is also some mild suppression seen in the right hemisphere. There are no Interictal Epileptiform Discharges (IED's) contained within the recording, and NO Electrographic Seizures occur. There are no clinical target events captured during this period of recording. Summary This chcf video-eeg was notable for: 1. Diffuse background slowing c/w a non-specific global encephalopathy. 2. Focal slowing and suppression on the right suggestive of a structural lesion in this area. There were no interictal epileptiform discharges and no seizures seen but this does not rule out a potential diagnosis of epilepsy. Thank you very much for allowing me to participate in this patient's care. Alex Young MD, ABPN documented in this encounter Leah Mcguire, ADVERTISING DESIGNER - 08/17/2019 1:34 PM Kyler Ramos, OT - 08/10/2019 3:44 PM [place], OT - 07/13/2019 4:43 PM Gela Osborne, FLEXBOARD OPERATOR - 07/06/2019 4:32 PM EST Consult Notes (unrecognized section and content) Associated Order(s): IP CONSULT TO BEHAVIORAL HEALTH Behavioral Health Consult Patient Name: Johnathan Gonzalez Admit Date: [id number] MR #: [id number] : 1975 Referring Provider: No ref. provider found Primary Care Provider: Physician No Assessment Johnathan Gonzalez is a 44 y.o. male presenting with a history of hypertension who presented to [place] on 111 from an outlying hospital after being found unresponsive. He was found to have a right MCA CVA with malignant edema and acute respiratory failure requiring intubation. He was admitted to the neuro critical care unit and underwent craniectomy on 05/26/2019. His course has been complicated by a trach/PEG, pneumonia and right ICA dissection. His tracheostomy was decannulated on 1226 and PEG tube removed on 08/11/2019. The patient is and his has been extensively uninvolved in his care, and has been poorly responsive to both the patient and the staff with regard to decisions being made about his disposition. Concerns about his mood related to all of this led to a behavioral medicine consult. Diagnosis & Plan/Recommendations Other Cognitive impairment Assessment & Plan The patient has been encephalopathic through much of his hospital stay. Overall his mental status has significantly improved however he continues to have memory impairment and significant impairment in executive function. He has limited understanding of his physical deficits and believes that he can walk and would be able to provide self-care. He has poor understanding of why he is in the hospital. It is unclear what his baseline will be ultimately. Adjustment disorder Assessment & Plan The patient denies feeling depressed. He reports feeling angry because he believes the hospital is keeping him here against as well. He has limited understanding of his 's lack of involvement or responsiveness. His cognitive impairment may be influencing his perception of the circumstances. He reports that he is eating and sleeping well. I would not be inclined to start an antidepressant at this time. There may be limited benefit to counseling at this time due to the cognitive impairment. It is likely he may eventually need some counseling or other intervention but given his current perception of the circumstances the primary intervention at this time is ongoing reality orientation. Thank you for this consult. Please call with questions. Comorbid issues impacting my care plan include HTN and CVA. Our service will sign off. Please reconsult as needed. Reason for Consult: Adjustment to post CVA History of Present Illness: Johnathan Gonzalez is a 44 y.o. male with a history of hypertension who presented to [facility] on 1118 from an outlying hospital after being found unresponsive. The patient was found to have had a right MCA CVA with malignant edema and acute respiratory failure. He required intubation and was admitted to [facility]. He underwent craniectomy on 05/26/2019. He is required a trach, PEG, has had pneumonia and had a right ICA dissection. His tracheostomy was decannulated on 1226 and PEG tube removed 08/11/2019. His spelt cath is currently removed and will be replaced in early September if he is still in the hospital. The patient has had other complications that include tracheitis and bronchitis. He is also had left hip myositis. He had significant dysphasia which is improved and he is tolerating normal diet. He has been encephalopathic through much of the hospitalization but is improved. He is medically stable for discharge however there are concerns that his is been largely uninvolved. Earlier in the hospital stay the patient's was working and there was insurance involved. However she has apparently lost her job and now uninsured therefore he does not have insurance for coverage of rehab placement. The patient's has not been responsive to requests for caregiver training for him to be able to come home. Staff have been concerned that he may be depressed related to lack of family involvement in these difficulties. The patient was seen. He is able to tell me that he has had a stroke in the part of the skull is missing. He knows his location and is able to use the board for date orientation. He is aware that his lost her job. He reports she is only been here 3 or 4 times during his hospital stay. The patient believes that he is being held here against his will. He reports that he has to get home and has many things he needs to work on. When asked how he would leave here he believes that he could not walk. He has no awareness that he cannot take care of himself independently. He does not equate his 's lack of involvement with his not leaving the hospital. He believes that he cannot get Medicaid because he is not at home. The patient denies feeling depressed. He does report being angry because he is being kept here. He tells me he is sleeping and eating well. He denies any psychiatric history, and any history of previous psychiatric issues including depression or anxiety. He further denies any history of substance use. Past Psychiatric History The patient otherwise denies any previous psychiatric problems or diagnoses, inpatient or outpatient mental health care, suicide attempts, use of psychotropic medications, or any self injurious behavior. Family Psychiatric History The patient otherwise denies any family history of mental illness or treatment, psychiatric hospitalizations, suicide attempts, or substance problems. 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 Reports he has a total of 6 children Substance use History Nicotine: Former tobacco Alcohol: Occasional alcohol Illicit substances: Denies Social History Socioeconomic History Marital status: Spouse name: Not on file Number of children: Not on file Years of education: Not on file Highest education level: Not on file Occupational History Not on file Social Needs Financial resource strain: Not on file Food insecurity Worry: Not on file Inability: Not on file Transportation needs Medical: Not on file Non-medical: Not on file Tobacco Use Smoking status: Former Smoker Last attempt to quit: 05/26/2009 Years since quittin.2 Smokeless tobacco: Current User Types: Snuff Substance and Sexual Activity Alcohol use: Yes Alcohol/week: 12.0 standard drinks Types: 12 Cans of beer per week Comment: per week Drug use: Not Currently Sexual activity: Not on file Lifestyle Physical activity Days per week: Not on file Minutes per session: Not on file Stress: Not on file Relationships Social connections Talks on phone: Not on file Gets together: Not on file Attends christian service: Not on file Active member of club or organization: Not on file Attends meetings of clubs or organizations: Not on file Relationship status: Not on file Other Topics Concern Not on file Social History Narrative Not on file Social History Social History Narrative Not on file Medical History: I have reviewed the patient's other history as below: Past Medical History: Diagnosis Date Arthritis Diabetes mellitus (HCC) Hypertension Stroke (HCC) Syncope Past Surgical History: Procedure Laterality Date BRONCHOSCOPY N/A 06/09/2019 Procedure: BRONCHOSCOPY with tracheostomy; Surgeon: Luc Rodas MD; Location: [facility]; Service: General Surgery CRANIECTOMY Right 05/26/2019 Procedure: right hemiCRANIECTOMY; Surgeon: Wilton Rankin MD; Location: [facility]; Service: Neurological EGD N/A 06/09/2019 Procedure: ESOPHAGOGASTRODUODENOSCOPY with percutaneous endoscopic gastrostomy tube placement; Surgeon: Luc Farmer MD; Location: [facility]; Service: Gastroenterology Family History: History reviewed. No pertinent family history. Allergy Information: I have reviewed the patient's allergies. Patient has no known allergies. Home Medications: No current outpatient medications on file as of 08/17/2019. Review of Systems: Constitutional: Denies fever, chills, diaphoresis, malaise Eyes: Denies blurred vision, double vision ENT: Denies nasal congestion, sore throat Neurological: Denies headache, photophobia, weakness, numbness CVS: Denies chest pain or palpitations Respiratory: Denies dyspnea or cough Musculoskeletal: Denies joint pain or muscle aches Musculoskeletal: positive for Left-sided hemiplegia GI: Denies nausea, vomiting, constipation, or diarrhea : Denies urinary urgency, frequency, or burning Integumentary: Denies itching or rash Endocrine: Denies heat/cold intolerance or weight loss/weight gain Physical Examination: Vital Signs: BP 138/70 (BP Location: Left arm, Patient Position: Lying) Pulse 88 Temp 98.1 F (36.7 C) (Oral) Resp 16 Ht 5' 10 Wt 75.4 kg (166 lb 3.6 oz) SpO2 95% BMI 23.85 kg/m Mental Status Evaluation: General Appearance & Behavior: age appropiate and cooperative Grooming & Hygiene: hospital gown Psychomotor Activity: no psychomotor abnormalities or muscle atrophy noted Gait & Station gait and station not observed as patient laying in bed Speech: normal rate, rhythym, volume, and spontaneity Flow of Thought: linear and goal directed and concrete Thought Associations: Intact Content of Thought: No evidence of suicidal ideations/homicidal ideations/psychosis Mood: frustrated Affect: flat Insight: impaired Judgment: impaired Orientation: alert and oriented to person, place, time, and circumstances Memory: impaired Attention: adequate Concentration: reduced Language: fluent Fund of Knowledge: estimated average intelligence Laboratory and Additional Data Reviewed: Laboratory 08/17/19 6:29 PM Chemistry Radiology 08/17/19 6:29 PM Cardiology 08/17/19 6:29 PM EKG Medications 08/17/19 6:29 PM Transcriptions 08/17/19 6:29 PM TWAN Nam 08/17/2019 6:29 PM Occupational Therapy OCCUPATIONAL THERAPY TREATMENT NOTE Skilled Therapy Needs After Discharge Anticipate Resolution of Current Assessment Limitations Including: Pain, Social Support, Mechanical Barriers Are Skilled Therapy Services Needed After Discharge: Yes Intensity of Skilled Therapy: 5 to 7 days per week Anticipated Duration of Skilled Therapy: > 30 days DME Recommendation: To be determined at next level of care Rehab Potential: Fair, For goals Outcomes Measures Prior Function Daily Activity: Raw Score: 24 Prior Function Daily Activity % Impaired: 0% functionally impaired AM-PAC Daily Activity: Raw Score: 11 AM-PAC Daily Activity % Impaired: 70.42% functionally impaired Therapy Precautions Orthotic Devices: Yes(Helmet worn at all times when OOB-no Bone R side flap) Spine / Trunk: (Helmet-No Bone Flap) Upper Extremity: Left(L resting hand splint ) Weight Bearing Status: WFL General Rehab Precautions: Fall risk Cognition Overall Cognitive Status: Impaired Arousal/Alertness: Inconsistent responses to stimuli(Patient followed simple 2 step commads on 80% of occassions) Orientation Level: Oriented X4 Executive functioning: Insight, Processing delay, Sequencing, Planning / Organizing, Mod impairment Safety Judgment: Decreased awareness of need for assistance, Decreased awareness of need for safety Problem Solving: Assistance required to identify errors made, Assistance required to generate solutions, Assistance required to implement solutions Attention: Attends to distracted environment, Attends to quiet environment, Impaired, Sustained attention Hearing Status: WFL Social Interaction: Global impairment Comments: Patient observed to follow 2 step directions on 75% of occassions. Patient observed to articulate pain grade, location and internsity Skilled Intervention: Patient provided with closed ended questions about self, and situation. Patient educated on visual scanning methods this date with moderate verbal cues required to attend to left side. Patient cognizant of impaired visual field. Patient educated on turning towards L side during meals ADL/IADL Feeding: Min, Increased time to complete, Mod UE Dressing: Max LE Dressing: Max Toileting : Dependent Skilled Intervention: Patient completed self-feeding task this date with moderate assistance to cut/dice food. Patient observed to transport food with SBA. Patient required moderate cues to scan plate this date Patietn required min assistance to thread R arm with max A to thread L arm through gown. Patient educated on functional reaching ground level to pull brief from ankle to waist level. min a required to bridge in order to manage brief. Patient educated on flaccid UE positioning during bed mobility and dressing task to decrease rates of pain/ discomfort. Patient educated on isela dressing approaches this date Bed Mobility Rolling: Mod, Max Supine to Sit: Max, 2 person assist Sit to Supine: Max, 2 person assist Skilled Intervention: Patient required max A to roll towards L side during bed mobility task with moderate assistance when rolling towards R side. Patient reported signifcant increase in pain during bed mobility task. Dep for per-care this date Functional Transfers Sit to Stand: Dependent, Two person assist Skilled Intervention: Floor based lift with harness insert used this date for attempted standing transfer. Patient completed partial stand with sig. increase in pain and nausea while seated EOB. Patient retropulsive during EOB seated task with max A x1 required to remain upright. Home Living Type of Home: House Home Layout: One level(2STE no rail (able to install if needed)) Bathroom Shower/Tub: Tub/shower unit Bathroom Toilet: Standard Bathroom Equipment: (none) Additional Comments: Pt unable to provide info. 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 This note stands as the current Discharge Summary upon patient discharge from the hospital or completion of Occupational Therapy Plan of Care. Occupational Therapy OT SPLINT NOTE Splint Type: LEFT RESTING HAND SPLINT D/t flaccid LUE and d/t mild contraction noted in L DIPs donned left resting hand splint. Educated pt and RN about wear schedule (2 hours on / 2 hours off) and that it does not need to be worn at night. Educated pt and RN proper fitting/strap placement and appropriate way to michelle/doff. Educated RN to check for skin integrity when doffing splint. Orders placed and sheet placed in patient's room for appropriate wear schedule for carryover. Splint Follow Up: 07/14/19 Speech Pathology Bedside Swallow Evaluation Recommended Diet: PO Recommendations: Ground mechanical, Golden [place]; repeat MBS planned for 06/26 Johnathan Luisa PhillipsLisa was seen for repeat BSE following decannulation 07/03. Pt was alert and cooperative with adequate audible phonation. Patient trialed on the following: CONSISTENCY PRESENTATION ORAL (SIGNS / SYMPTOMS) PHARYNGEAL (SIGNS / SYMPTOMS) ICE Spoon Within functional limits Within Functional Limits, Decreased laryngeal elevation THIN Cup, Spoon, Straw Spillage Left Within Functional Limits, Decreased laryngeal elevation(one spontaneous coughing following continuous straw drinking) NECTAR Cup, Self fed, Straw Within Functional Limits Within Functional Limits, Decreased laryngeal elevation HONEY PUREE Self Fed, Spoon Spillage Left Within Functional Limits, Decreased laryngeal elevation SOFT SOLID Self Fed Spillage Left, Increased Anterior to Posterior Transit(left labial leakage ) Within Functional Limits, Decreased laryngeal elevation Pt did not present with consistent overt clinical s/s aspiration except for one coughing episode following continuous straw drinking of thin. Respiratory rate and SPO2 remained consistent thru the trials. Lung sounds reportedly diminished bilaterally but clear at the end of the assessment per RN. Recommending soft ground diet with nectar thick liquids with repeat MBS with ongoing dysphagia follow up by speech. Discharge Recommendations: Factors for Returning to Prior Level of Function Body Structure and Function: Musculoskeletal impairment, Neurologic impairment, Cardiopulmonary impairment Explain Impairments: right MCA CVA with malignant edema, right craniectomy, respiratory failure, s/p trach with recent decannulation, PNA; PEG placement 06/09 Activities and Participation: Swallowing limitation, Executive function limitation Explain Limitations: at elevated aspiration risk d/t left oral sensorimotor deficits, s/p trach and cog deficits Environmental Factors: Home situation, Family/caregiver support Explain Environmental Factors: lives with spouse Personal Factors: Compliance, Awareness of own capacity and performance Explain Personal Factors: suspected visuoperceptual and cog deficits Skilled Therapy Needs: Anticipate Resolution of Current Assessment Limitations Including: Mechanical Barriers, Social Support Are Skilled Therapy Services Needed After Discharge: Yes Intensity of Skilled Therapy: 5 to 7 days per week Anticipated Duration of Skilled Therapy: > 30 days 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 Working toward discharge home: Yes Who was trained?: (06/25/2019 -- No family/caregivers at bedside.) Impressions / Severity Level: Impressions-Severity Dysphagia Outcome and Severity Scale: Level 4 - Mild-moderate dysphagia Oral Severity Scale: Mild, Moderate Pharyngeal Severity Scale: Suspect impaired, Suspect mild Recommendations: Recommendations Further Eval Rxs: MBS PO Recommendations: Ground mechanical, [place] liquid Compensation Strategies: Alternate solid and liquid Postures: Sit 90 degrees, Up 30min after meal Food Presentation: Small bites Liquid Presentation: Small sips, Average sips, Liquids by cup, Liquids by spoon, Liquids by straw Medication Presentation: Whole in puree, crushed in puree Amount of Supervision: Nursing staff supervision, 100% supervised, Physical assistance requried Treatment Techniques: Diet tolerance, Train feed strategies, Oral motor exercises(additional recommendations to come after repeat MBS ) Further Recommendations: Oral care TID, Assess for diet tolerance, Evaluate diet upgrade Prior Level of Function: Prior Function Dysphagia Onset: 07/03 repeat BSE d/t decannulation Patient Complaint: No Date of Previous MBS: 06/27/2019 Date of Previous BSE: 06/25/2019 Diet Prior to BSE: PEG Intubation Date: 05/25/19 Extubation Date: 06/09/19(decannulated 07/03) Behavioral Observations: Alert, Cooperative, Cognitive deficits For complete objective data, detailed plan of care, and education refer to: Speech Bedside Swallow Evaluation flow sheet, as well as patient Plan of Care and Education documentation This note stands as the current Discharge Summary upon patient discharge from the hospital or completion of Speech Pathology Plan of Care Speech Pathology Bedside Swallow Treatment Note Total Treatment Time (Total Session Time): 28 Minutes Treatment Provided / Skilled Intervention: Pt/RN educated on rationale for repeat instrumental and diet recommendations, safe swallow precautions and importance of proper oral care via verbal and written instructions. Pt/RN verbalized understanding and agreement. This note stands as the current Discharge Summary upon patient discharge from the hospital or completion of Speech Pathology Plan of Care Associated Order(s): IP CONSULT TO INFECTIOUS DISEASES Infectious Diseases Consultation Note Patient Name: Johnathan Gonzalez Admit Date: [id number] MR #: [id number] : 1975 Physicians: Physician No; No ref. provider found Assessment and Plan: Johnathan Gonzalez is a 44 y.o. male who presented with: Left hip pain with MRI findings suspicious for myositis. Left hip aspiration was done on 06/30, negative for infection. 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 Status post craniectomy on 05/26/2019 Right ICA dissection, leading to above. Patient is on aspirin. Chronic respiratory failure requiring trach and PEG Secondary to above. Possible healthcare associated pneumonia. stenotrophomonas from sputum culture. Treated with cefepime then Levaquin, antibiotic were stopped on 06/09. Leukocytosis, fluctuating. History of hypertension Recommend: The patient did not have any hip pain before admission, he started having pain during this admission, stated it is worse with movement, he thinks it is related to aggressive turning and pulling of his left lower extremity. The pain is more with movement, no pain at rest or at night. No fever or chills. Infectious etiology is less likely. Agree with blood culture. Pain control, consider NSAIDs if not contraindicated, monitor off antibiotics for now. Thank you for consulting us on this patient, we will follow with you peripherally. Please call with any questions or concerns. Above plan was discussed with his hospitalist Dr. Josue. Chief Complaint/Reason for Consult: Myositis of the left hip History of Present Illness: Johnathan Gonzalez is a 44 y.o. y/o male with prolonged hospital stay secondary to massive right MCA stroke, currently with left hip pain and MRI findings suspicious for infectious etiology, we are asked to see him for further recommendations. The patient is not a great historian, he reported that he started having hip pain in the hospital, he thinks it is related to the stretching of the hip joint during turning by staff. Denied any prior trauma or injury, no prior surgeries to the area. No fever or chills. His pain usually goes away with rest, does not wake him up at night, is unrelated to moving the lower extremity. The patient was not bacteremic recently. Per chart review, he was admitted with massive right MCA stroke with malignant edema and left-sided weakness, he had craniotomy last month, he continued to have respiratory failures requiring trach and PEG. He was recently weaned off the ventilator. During hospitalization he was treated for stenotrophomonas in the sputum with chest x-ray findings concerning for pneumonia. His antibiotic was stopped on 06/09. He has been off antibiotics since then. No fever reported. His leukocytosis is fluctuating, it is 12.4 today. The patient was seen by orthopedic surgery, fluoroscopic guided joint aspiration was attempted on 06/30 and it was a dry tap, 8 cc of saline was injected and 2 cc of the fluid were aspirated, culture is negative so far. MRI from yesterday is showing inflammatory changes around the joint with joint effusion. Orthopedic recommended a trial of antibiotics. History: Past Medical History: Diagnosis Date Arthritis Diabetes mellitus (HCC) Hypertension Stroke (HCC) Syncope Past Surgical History: Procedure Laterality Date BRONCHOSCOPY N/A 06/09/2019 Procedure: BRONCHOSCOPY with tracheostomy; Surgeon: Luc Rodas MD; Location: [facility] Endo; Service: General Surgery CRANIECTOMY Right 05/26/2019 Procedure: right hemiCRANIECTOMY; Surgeon: Wilton Rankin MD; Location: [facility] NEURO OR; Service: Neurological EGD N/A 06/09/2019 Procedure: ESOPHAGOGASTRODUODENOSCOPY with percutaneous endoscopic gastrostomy tube placement; Surgeon: Luc Farmer MD; Location: [facility]; Service: Gastroenterology History reviewed. No pertinent family history. Social History Socioeconomic History Marital status: Spouse name: Not on file Number of children: Not on file Years of education: Not on file Highest education level: Not on file Occupational History Not on file Social Needs Financial resource strain: Not on file Food insecurity Worry: Not on file Inability: Not on file Transportation needs Medical: Not on file Non-medical: Not on file Tobacco Use Smoking status: Former Smoker Last attempt to quit: 05/26/2009 Years since quittin.1 Smokeless tobacco: Current User Types: Snuff Substance and Sexual Activity Alcohol use: Yes Alcohol/week: 12.0 standard drinks Types: 12 Cans of beer per week Comment: per week Drug use: Not Currently Sexual activity: Not on file Lifestyle Physical activity Days per week: Not on file Minutes per session: Not on file Stress: Not on file Relationships Social connections Talks on phone: Not on file Gets together: Not on file Attends christian service: Not on file Active member of club or organization: Not on file Attends meetings of clubs or organizations: Not on file Relationship status: Not on file Other Topics Concern Not on file Social History Narrative Not on file Allergy Information: I have reviewed the patient's allergies. Antibiotic allergies: Patient has no known allergies. Review of Systems: The following system(s) were reviewed and pertinent findings noted: Constitutional: (-) fever/rigors, weight change, night sweats, or anorexia ENT: Trached CV: (-) chest pain, [place], perceived palpitations, orthopnea, or ankle edema Resp: Positive cough, wheezing, hemoptysis, or pleurisy GI: (-) abdominal pain, nausea, vomiting, diarrhea : Has a condom catheter Neuro: Left-sided paralysis Integumentary: (-) rash or nodules MuscSkel: (-) localized joint or back pain except left hip Heme/lymphatic: (-) obvious/appreciated bruising or lymphadenopathy Psych: (-) insomnia Physical Examination: Vital Signs: BP 120/88 Pulse 95 Temp 97.9 F (36.6 C) (Axillary) Resp (!) 19 Ht 5' 10 Wt 86.9 kg (191 lb 9.3 oz) SpO2 94% BMI 27.49 kg/m General Appearance: Johnathan Gonzalez is a 44 y.o. male Awake, responsive, no acute distress. HEENT: Head -asymmetric, craniotomy site okay. Neck: Tracheostomy in place. Cardiovascular: S1, S2 normal. No murmurs, rubs, clicks or gallops appreciated. Respiratory: Few upper respiratory rhonchi Abdomen: Soft, non-tender, normal bowel sounds, non-distended, peg tube ok. Extremities: No edema, pulses palpable. Left hip with minimal tenderness to palpation in the anterior area. No skin changes. Neurological: Left-sided paralysis. Musculoskeletal: No joint tenderness, deformity or swelling. Left hip with minimal tenderness to palpation and pain with passive movement, patient has no active movement in the left side. Skin: Normal coloration and turgor. No rashes. Psych: Flat affect aspirin 81 mg Tube Daily atorvastatin 80 mg Tube Nightly enoxaparin (LOVENOX) injection 40 mg Subcutaneous Daily lidocaine 2 patch Transdermal Daily polyethylene glycol 17 g Tube BID senna-docusate 1 tablet Tube BID Labs: Synovial fluid culture on 06/30 is negative Imaging: Reviewed MRI of the left hip 1. There is a complex, heterogeneous, rim enhancing collection measuring 1.6 x 3.7 cm within the left gluteus medius muscle posterior to the left acetabulum with a large amount of enhancement of the adjacent muscle and the left piriformis muscle in this region. Differential diagnostic considerations for this collection primarily include an intramuscular abscess or less likely an intramuscular hematoma. There is a probable surrounding myositis of the gluteus medius muscle and the left piriformis muscle. 2. There is a large joint effusion of the left hip with an enhancing synovitis. However, there is no MRI evidence of osteomyelitis of the left hip. Correlation with the laboratory analysis of the recent left hip joint aspiration is recommended. 3. There is a large amount of edema like signal involving the musculature surrounding the left hip. Differential diagnostic considerations for this edema primarily include rhabdomyolysis or a myositis. Ángel Marrufo MD Pager # [phone] [facility] Infectious Diseases Associated Order(s): IP CONSULT TO INTERVENTIONAL RADIOLOGY Received consult for left glute medius abscess aspiration/drain. Reviewed imaging with Dr. Felton. Per Dr. Felton, this area shows diffuse inflammation and nothing to aspiration at this time. A left joint aspiration could be considered. Spoke with Dr. Shaw (Ortho) regarding the above who verbalized understanding and declined hip aspiration, as it was previously performed on 06/30. Thank you for the consult, Mae Do RNwaistline joiner overlock Radiology Orthopedics Progress / Attestation Note Patient Name: Johnathan Gonzalez MR #: [id number] [facility] #: [id number] Clinician: Shayla Holcomb DO Assessment/Plan I have independently seen and evaluated the patient and have reviewed the resident/mid-level provider consult. All pertinent imaging and labs were reviewed. I agree with the findings and plan as documented with the following additions / exceptions: - Agree with BERYL; patient is very poor historian during interview - Pain with motion / palpation of the left hip; greatest response with palpation directly at the left greater trochanteric region - ICE, NSAIDS, physical therapy for ROM; consider steroid injection - Exam not concerning for septic arthritis; continue to monitor; pt does have elevated WBC; consider aspiration of left hip if signs of systemtic infection / worsening pain ROS: Denies fevers, chills, nausea, vomiting, SOB, CP, tingling and numbness Vital signs in last 24 hours: Temp: [97.1 F (36.2 C)-98.4 F (36.9 C)] 98.3 F (36.8 C) Heart Rate: [88-92] 91 Resp: [18-25] 23 BP: (110-129)/(77-93) 127/93 FiO2 (%): 28 Focused Physical Exam: Pain with ROM and palpation in all regions of the hip and thigh Greatest tenderness at the greater trochanteric region Laboratory Recent Labs 06/29/19 1833 WBC 11.73* HGB 10.4* HCT 32.6* PLT 286 No results for input(s): INR, PROTIME in the last 72 hours. Will further Discuss with Dr. Elena Holcomb DO, Orthopaedics Associated attestation - Jamir Parker MD - 06/30/2019 9:55 AM EST As below. Recommend hip aspiration and MRI. Will follow Associated Order(s): IP CONSULT TO ORTHOPEDIC SURGERY CONSULT NOTE Patient Name: Johnathan Gonzalez Admit Date: [id number] MR #: [id number] : 1975 Physicians: Physician No (Family); No ref. provider found (Referring) Dr. Parker (ortho) Assessment and Plan: Other Left hip pain Assessment & Plan WIll d/w Dr. Holcomb -44 y/o male with L lateral hip pain x 1 week -Patient admitted 05/25/2019 s/p stroke and craniectomy 05/26/19 -symptoms likely related to greater trochanter bursitis. Xrays negative for bony injury -Recommend symptoms mgmt with ice and antiinflammatories as able. -Will d/w staff regarding potential cortisone injection and append chart in plan Chief Complaint/Reason for Visit: Left hip pain History of Present Illness: Johnathan Gonzalez is a 44 y.o. male presenting with c/o left hip pain x 1 week. Patient was admitted on 05/25/2019 with acute ischemic right MCA stroke and his hospital course was complicated by malignant edema and acute respiratory failure. He is also s/p trach and PEG. The patient is flaccid to LLE and states he has pain along the lateral aspect og his hip but denies recent injury. He has been primarily bed bound since admission and was lifted out of bed via elise lift for the first time today. History: Past Medical History: Diagnosis Date Arthritis Diabetes mellitus (HCC) Hypertension Stroke (HCC) Syncope Past Surgical History: Procedure Laterality Date BRONCHOSCOPY N/A 06/09/2019 Procedure: BRONCHOSCOPY with tracheostomy; Surgeon: Luc Rodas MD; Location: [facility] Endo; Service: General Surgery CRANIECTOMY Right 05/26/2019 Procedure: right hemiCRANIECTOMY; Surgeon: Wilton Rankin MD; Location: [facility] NEURO OR; Service: Neurological EGD N/A 06/09/2019 Procedure: ESOPHAGOGASTRODUODENOSCOPY with percutaneous endoscopic gastrostomy tube placement; Surgeon: Luc Farmer MD; Location: [facility]; Service: Gastroenterology History reviewed. No pertinent family history. Social History Socioeconomic History Marital status: Spouse name: Not on file Number of children: Not on file Years of education: Not on file Highest education level: Not on file Occupational History Not on file Social Needs Financial resource strain: Not on file Food insecurity Worry: Not on file Inability: Not on file Transportation needs Medical: Not on file Non-medical: Not on file Tobacco Use Smoking status: Former Smoker Last attempt to quit: 05/26/2009 Years since quittin.0 Smokeless tobacco: Current User Types: Snuff Substance and Sexual Activity Alcohol use: Yes Alcohol/week: 12.0 standard drinks Types: 12 Cans of beer per week Comment: per week Drug use: Not Currently Sexual activity: Not on file Lifestyle Physical activity Days per week: Not on file Minutes per session: Not on file Stress: Not on file Relationships Social connections Talks on phone: Not on file Gets together: Not on file Attends christian service: Not on file Active member of club or organization: Not on file Attends meetings of clubs or organizations: Not on file Relationship status: Not on file Other Topics Concern Not on file Social History Narrative Not on file Allergy Information: I have reviewed the patient's allergies. Patient has no known allergies. Home Medications: No current outpatient medications on file as of 06/29/2019. Review of Systems: The following system(s) were reviewed and pertinent findings noted: Constitutional Physical Examination: Vital Signs: BP 110/77 Pulse 92 Temp 98.1 F (36.7 C) (Oral) Resp (!) 25 Ht 5' 10 Wt 86.9 kg (191 lb 9.3 oz) SpO2 95% BMI 27.49 kg/m Constitutional: no acute distress and alert/oriented x3 Cardiovascular: 2+ DP pulse with BCR to all toes to left lower extremity Neurological: SILT.Patient flaccid to LLE Musculoskeletal: Pain to left lateral hip with ROM of hip. Point tenderness to L great troch and along lateral proximal thigh Integumentary: Skin intact with no abrasions or open wounds Speech Therapy Speaking Valve Evaluation Discharge Recommendations: Factors for Returning to Prior Level of Function Body Structure and Function: Neurologic impairment Explain Impairments: Hypoxic Respiratory Failure(Right MCA CVA with malignant edema) Activities and Participation: Communication limitation, Swallowing limitation, Executive function limitation Explain Limitations: Dysphagia; PMV trials; Cognitive-communication Disorder Environmental Factors: Home situation Explain Environmental Factors: Lives with Personal Factors: Awareness of own capacity and performance Explain Personal Factors: Suspect reduced insight into deficits Skilled Therapy Needs: Anticipate Resolution of Current Assessment Limitations Including: Social Support, Mechanical Barriers Are Skilled Therapy Services Needed After Discharge: Yes Intensity of Skilled Therapy: 5 to 7 days per week Anticipated Duration of Skilled Therapy: > 30 days 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 Working toward discharge home: Yes Who was trained?: (06/25/2019 -- No family/caregivers at bedside.) Speaking Valve Recommendations: Placement Recommendations: Speech/RN/Trained family member & Staff, Remove while sleeping Patient was seen for PMV evaluation this date. RN gave FLEXBOARD OPERATOR consent to evaluate patient; RT suctioned patient and deflated patient's cuff prior to ST session. Trach mask in place during ST session. New PMV kit was brought to patient's room. FLEXBOARD OPERATOR educated patient on finger occlusion and PMV trials that would occur during evaluation; patient agreeable to evaluation. O2 stats were at 93-94% (WFL) before and after completing finger occlusion trials. No air stacking noted. Patient was able to phonate sustained vowel; vocal quality sounded weak with low intensity. Patient passed finger occlusion trials. PMV trial then completed. Patient presented with immediate coughing upon PMV placement. The patient's O2 stats remained between 93-97% while wearing PMV. The patient produced basic conversation while wearing PMV. Vocal quality sounded weak with low intensity. The patient reported no shortness of breath or desire to remove PMV. FLEXBOARD OPERATOR educated on how to don and doff PMV. Patient appears to be tolerating PMV wear at this time. It is recommended that the patient continue to wear continuous pulse ox while wearing PMV. FLEXBOARD OPERATOR educated patient and RN regarding FLEXBOARD OPERATOR's recommendation for continuous PMV wear with the following precautions: - Tracheostomy tube cuff MUST be deflated before placing the Passy-Jose Luis Valve(PMV). Pt will be unable to breathe if cuff is not completely deflated. - If the patient presents with respiratory distress, remove the Passy-Burnett Valve (PMV) immediately. - Please remove Passy-Burnett Valve (PMV) before the patient goes to sleep at night. - If the tracheostomy tube is changed or downsized, do not place Passy-Burnett Valve (PMV) until re-assessed by FLEXBOARD OPERATOR, as these procedures may induce tracheal swelling and/or bronchospasm. Patient's PMV kit left in patient's room for medical team placement. Placement Recommendations: Speech/RN/Trained Staff, Remove while sleeping Speaking Valve Data: Speaking Valve Type: PMV-2000 (Purple) Phonation: Low volume, Poor intensity RT Present: No Cuff Deflated: Yes Secretions: Small Suction by: RT Speaking Valve Tolerance - TIME: 30(minutes) Past Medical History: Diagnosis Date Arthritis Diabetes mellitus (HCC) Hypertension Stroke (HCC) Syncope Past Surgical History: Procedure Laterality Date BRONCHOSCOPY N/A 06/09/2019 Procedure: BRONCHOSCOPY with tracheostomy; Surgeon: Luc Rodas MD; Location: [facility] Endo; Service: General Surgery CRANIECTOMY Right 05/26/2019 Procedure: right hemiCRANIECTOMY; Surgeon: Wilton Rankin MD; Location: [facility] NEURO OR; Service: Neurological EGD N/A 06/09/2019 Procedure: ESOPHAGOGASTRODUODENOSCOPY with percutaneous endoscopic gastrostomy tube placement; Surgeon: Luc Farmer MD; Location: [facility] Endo; Service: Gastroenterology For complete objective data, detailed plan of care, and education refer to: Speech Comm/Cog flow sheet, as well as patient Plan of Care and Education documentation. This note stands as the current Discharge Summary upon patient discharge from the hospital or completion of Speech Pathology Plan of Care Speech Pathology Bedside Swallow Evaluation Recommended Diet: Recommendations: NPO and alternative source of nutrition; ice chips okay (1-2 per hour, PRN) following aggressive oral care and with RN or FLEXBOARD OPERATOR supervision Discharge Recommendations: Factors for Returning to Prior Level of Function Body Structure and Function: Neurologic impairment Explain Impairments: Hypoxic Respiratory Failure(Right MCA CVA with malignant edema) Activities and Participation: Communication limitation, Swallowing limitation, Executive function limitation Explain Limitations: Dysphagia; PMV trials; Cognitive-communication Disorder Environmental Factors: Home situation Explain Environmental Factors: Lives with Personal Factors: Awareness of own capacity and performance Explain Personal Factors: Suspect reduced insight into deficits Skilled Therapy Needs: Anticipate Resolution of Current Assessment Limitations Including: Social Support, Mechanical Barriers Are Skilled Therapy Services Needed After Discharge: Yes Intensity of Skilled Therapy: 5 to 7 days per week Anticipated Duration of Skilled Therapy: > 30 days 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 Working toward discharge home: Yes Who was trained?: (06/25/2019 -- No family/caregivers at bedside.) Oral/Motor Oral Motor Impression-Severity Scale: Mild, Moderate Labial ROM: Reduced left, Reduced coordination Labial Symmetry: Abnormal symmetry left Labial Strength: Reduced Lingual ROM: Reduced coordination Lingual Symmetry: Abnormal symmetry left Lingual Strength: Reduced Mandible: Within Functional Limits Facial ROM: Reduced left Facial Symmetry: Left lower paresis, Left upper paresis Vocal Quality: Exceptions to WFL Breathy: Mild Vocal Intensity: Mildly decreased Intelligibility: Intelligible Breath Support: Adequate for speech Dentition: Permanent, Some missing teeth Johnathan Luisa Gonzalez was seen for initial BSE. Pt was alert and cooperative. Patient with Left facial facial droop. Patient with size 8 Shiley trach (cuff deflated) placed on 06/09/2019; trach mask in place. PO trials completed with and without PMV placement. Patient trialed on the following: CONSISTENCY PRESENTATION ORAL (SIGNS / SYMPTOMS) PHARYNGEAL (SIGNS / SYMPTOMS) ICE Spoon Impaired Mastication, Increased Anterior to Posterior Transit, Poor bolus formation, Anterior spillage. Delayed swallow, Decreased laryngeal elevation THIN Spoon Increased Anterior to Posterior Transit, Poor bolus formation, Anterior spillage Delayed swallow, Decreased laryngeal elevation, Cough - immediate Signs of penetration/aspiration were as follows: Coughing post swallow . Pt presents with Moderate oral and Suspect impaired, Suspect moderate pharyngeal dysphagia. Recommending MBS for pharyngeal diagnostics, MD consulted and MBS order placed. Speech therapy to f/u with patient per POC. Swallow Guidelines sign:required and posted at bedside Impressions / Severity Level: Impressions-Severity Dysphagia Outcome and Severity Scale: Level 3 - Moderate dysphagia Oral Severity Scale: Moderate Pharyngeal Severity Scale: Suspect impaired, Suspect moderate Recommendations: Recommendations Further Eval Rxs: MBS NPO Recommendations: ad terminal makeup operator alternative nutrition PO Recommendations: Ice chips Medication Presentation: No PO meds Amount of Supervision: Nursing staff supervision, 100% supervised, Physical assistance requried(with ice chips) Treatment Techniques: Diet tolerance, Train feed strategies, Oral motor exercises, Bolus manipulation exercises Further Recommendations: Oral care TID, Assess for diet tolerance Suggested Consults: Dietary Prior Level of Function: Prior Function Patient Complaint: No Date of Previous MBS: n/a Date of Previous BSE: n/a Diet Prior to BSE: PEG Intubation Date: 05/25/19 Extubation Date: 06/09/19 For complete objective data, detailed plan of care, and education refer to: Speech Bedside Swallow Evaluation flow sheet, as well as patient Plan of Care and Education documentation This note stands as the current Discharge Summary upon patient discharge from the hospital or completion of Speech Pathology Plan of Care <...more data not included due to size. Ebony Schwartz RN - 06/09/2019 3:42 PM EST Nursing Notes (unrecognized section and content) Bedside RN Cinthya Figueroa monitoring vital signs and sedation documented in this encounter Elaina Conrad RN - 05/26/2019 12:18 AM Milton Benoit DO - 05/25/2019 11:01 PM Yamilet Garcia RN - 05/25/2019 10:58 PM Yamilet Garcia RN - 05/25/2019 10:47 PM EST ED Notes (unrecognized secti on and content) Report called to receiving nurse ED Physician Note: NAME: Johnathan Gonzalez 44 y.o. CSN: [id number] PCP: Physician No History: Chief Complaint: Stroke Alert HPI: The history was obtained from the EMS. Johnathan is a 44 y.o. male who presents with a chief complaint of CVA. Patient presented to outside hospital with last known well at 11 PM on 05 24. He was found at his residence at approximately 6:30 PM on 05 25. At that time he was not moving his left side and had decreased LOC and vomiting. At arrival to outside hospital he was again vomiting and was intubated for airway protection. CT head with large area of infarct in the right MCA territory. He was transferred here for further evaluation. At outside hospital he did receive etomidate and succinylcholine. In route to the hospital by EMS he also received 10 mg of vecuronium as well as a Versed for mild agitation. EMS notes he was only moving the right side of his body during this time and was gagging and biting the ET tube. No further history obtainable at this time. PMHx: Past Medical History: Diagnosis Date Hypertension Syncope PMSx: History reviewed. No pertinent surgical history. FAM. Hx: History reviewed. No pertinent family history. SOC. Hx: Social History Socioeconomic History Marital status: Spouse name: Not on file Number of children: Not on file Years of education: Not on file Highest education level: Not on file Occupational History Not on file Social Needs Financial resource strain: Not on file Food insecurity Worry: Not on file Inability: Not on file Transportation needs Medical: Not on file Non-medical: Not on file Tobacco Use Smoking status: Never Smoker Smokeless tobacco: Current User Types: Snuff Substance and Sexual Activity Alcohol use: Yes Comment: occ Drug use: Not Currently Sexual activity: Not on file Lifestyle Physical activity Days per week: Not on file Minutes per session: Not on file Stress: Not on file Relationships Social connections Talks on phone: Not on file Gets together: Not on file Attends christian service: Not on file Active member of club or organization: Not on file Attends meetings of clubs or organizations: Not on file Relationship status: Not on file Other Topics Concern Not on file Social History Narrative Not on file MEDs: No current outpatient medications on file prior to encounter. ALL: No Known Allergies ROS: Review of Systems Unable to obtain History secondary to acuity of condition Physical Exam: Patient Vitals for the past 24 hrs: BP Temp Temp src Pulse Resp SpO2 Weight 05/26/19 0044 80 16 100 % 05/26/19 0000 (!) 141/94 73 15 100 % 05/25/19 2319 78 16 05/25/19 2315 (!) 135/98 81 16 97 % 05/25/19 2309 77 16 05/25/19 2304 80 16 05/25/19 2300 (!) 166/116 82 15 97 % 05/25/19 2254 94 (!) 28 05/25/19 2249 (!) 59 18 05/25/19 2245 (!) 154/109 62 16 96 % 05/25/19 2239 62 18 05/25/194 96 17 05/25/190 (!) 184/111 89 18 100 % 05/25/195 76 (!) 29 05/25/192223 100 % 05/25/192219 87 (!) 19 05/25/192218 100 % 05/25/192214 (!) 190/110 94 (!) 20 100 % 05/25/192209 95 (!) 21 05/25/192208 100 % 05/25/192203 62 16 05/25/192200 (!) 151/107 82 16 95 % 86.2 kg (190 lb) 05/25/192158 76 16 05/25/192154 (!) 172/95 05/25/192153 85 16 05/25/194 (!) 172/95 99 F (37.2 C) Oral 89 16 Physical Exam Vitals signs and nursing note reviewed. General: Intubated and sedated Head: Normocephalic, atraumatic. Eyes: PERRL, sclera anicteric. Mouth: 8.0 ETT at 26cm to lips Neck: Supple, trachea midline. Heart: RRR Lungs: Ventilated, clear and equal breath sounds, breathing at the vent Abdomen: soft, non-tender, non-distended, no rebound or guarding Extremities: non-tender calves, no edema, no gross deformities Skin: warm and dry Neurologic: Patient will intermittently gag and move right upper and lower extremity. No movement has been seen in the left upper or lower extremities. Laboratory & Radiological Imaging (if done): Labs Reviewed BASIC METABOLIC PANEL - Abnormal; Notable for the following components: Result Value Glucose 132 (*) All other components within normal limits Narrative: The eGFR should be used for monitoring renal function only and not for medication dosing. URINALYSIS - Abnormal; Notable for the following components: Clarity, Urine Hazy (*) Specific [place] 1.032 (*) Protein, Urine 30 (*) Ketones, Urine 20 (*) Blood, Urine Moderate (*) RBCs, Urine 52 (*) Bacteria, Urine Rare (*) Amorphous Crystals Many (*) Mucus, Urine Many (*) All other components within normal limits Narrative: Microscopic examination is performed on all urinalysis samples and only positive findings are reported. The test for blood on the chemical analytic portion of urinalysis may also be positive due to hemoglobinuria and myoglobinuria and if red blood cells are present they are quantified by microscopic examination. DRUGS OF ABUSE SCREEN, URINE - Abnormal; Notable for the following components: Benzodiazepine Screen, Urine Presumptive Positive (*) All other components within normal limits Narrative: Screen results should be used for treatment purposes only. Specimen will be kept for 2 weeks, if the sample is adequate. Confirmation testing can be initiated by calling the lab within 2 weeks. POC GLUCOSE - RALS - Abnormal; Notable for the following components: Glucose 124 (*) All other components within normal limits CBC WITH AUTO DIFFERENTIAL - Abnormal; Notable for the following components: WBC 19.09 (*) Neutrophils Abs 16.63 (*) Monocytes Abs 1.02 (*) All other components within normal limits PT/INR - Normal Narrative: During the induction phase of oral anticoagulation, the INR may not reflect the anticoagulation status of the patient. Therapeutic ranges for INR's are: Most clinical situations: INR 2.0-3.0 Mechanical Prosthetic Valve: INR 2.5-3.5 Critical: INR >5.0 HEPATIC FUNCTION PANEL - Normal LACTIC ACID, PLASMA - Normal POC INR - Normal CBC AND DIFFERENTIAL Narrative: The following orders were created for panel order CBC w/ Diff. Procedure Abnormality Status --------- ------ CBC Auto Differential[[id number]] Abnormal Final result Please view results for these tests on the individual orders. TROPONIN XR Abdomen AP Final Result - Portions of the abdomen are not included on this examination. -FINDING REQUIRING FOLLOW-UP OR FURTHER EVALUATION: Naso/orogastric tube with the tip projected just inside the gastroesophageal junction. Side-port is in the distal esophagus. This should be advanced 10 to 15 cm to be well within the stomach. Chest evaluation and discussion are limited. Concurrent imaging is obtained and will be reported separately. Workstation ID: [id number] CT Angiogram Head Neck Final Result 1. The right internal carotid artery occludes just beyond the carotid bulb. The artery is occluded to the carotid terminus. There is occlusion of the right middle cerebral artery and the A1 segment of the right anterior cerebral artery. This could be secondary to a dissection. 2. No stenosis of the left carotid arteries by NASCET criteria. No stenosis of the vertebral arteries. No flow-limiting stenosis in the remaining major intracranial arteries. Critical results were called by Dr. Yarbrough to Dr. MILTON ROGERS at 22:53 on 05/25/2019. [employer] Workstation ID: [id number] CT Head Without Contrast (Stroke) Final Result 1. No significant change in a large acute to subacute-appearing infarction in the majority of the right middle cerebral artery territory distribution. Stable effacement of the overlying cortical sulci, minimal mass effect, without midline shift. There remains no hemorrhagic transformation. 2. Stable hyperdensity of the distal right internal carotid artery and the proximal right middle cerebral artery, compatible with occlusion. Please refer to a pending CTA of the head and neck for further details. [employer] Workstation ID: [id number] XR Chest 1 View Final Result 1. Enteric tube with tip at the level of the hiatus. Consider advancement 2. Endotracheal tube 3.3 cm above the level of the trent. 3. Small left pleural effusion with compressive atelectasis. Workstation ID: [id number] CT Comparison Import Final Result CT Comparison Import Final Result XR Comparison Import Final Result ED Course / Medical Decision Making: Patient evaluated as transfer for CVA. On arrival myself and the neurology team met the patient in the room. He was transitioned to our ventilator. He had clear and equal breath sounds on arrival. He had recently received vecuronium on arrival however shortly afterwards it was noticed that he was able to move the right upper and lower extremities spontaneously. Laboratory evaluation reassuring. 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 Patient will be admitted to neuro critical care service for ongoing evaluation and management. I have updated his at bedside on patient's condition and answering questions to best of my ability at this time. Critical Care Time Upon my evaluation, this patient had a high probability of imminent or life-threatening deterioration due to central nervous system failure, which required my direct attention, intervention, and personal management. I have personally provided 35 minutes of critical care time exclusive of time spent on separately billable procedures. Time includes review of laboratory data, radiology results, discussion with consultants, and monitoring for potential decompensation. Interventions were performed as documented above. Medications Ordered/Given During ED Visit Medications sodium chloride (PF) (NS) flush 5 mL (has no administration in time range) And sodium chloride 0.9% (NS) (has no administration in time range) propofol (DIPRIVAN) infusion (30 mcg/kg/min 86.2 kg Intravenous Rate/Dose Change 05/25/192257) sodium chloride (PF) (NS) 0.9 % contrast line flush 10 mL (10 mL Intravenous Given 05/25/192218) And sodium chloride (PF) (NS) 0.9 % contrast line flush 80 mL (80 mL Intravenous Given 05/25/192218) And iopamidol (ISOVUE-370) 76 % injection 75 mL (75 mL Intravenous Contrast Administered 05/25/192217) aspirin suppository 300 mg (300 mg Rectal Given 05/25/192330) Clinical Impression: 1. Carotid artery dissection (HCC) 2. Cerebrovascular accident (CVA), unspecified mechanism (HCC) 3. Respiratory failure, unspecified chronicity, unspecified whether with hypoxia or hypercapnia (HCC) Disposition: Patient is being hospitalize to NCC New Prescriptions This print group is not available in inpatient encounters. Please contact a systems security consultant. Donald Rogers DO ED Attending Physician (Please note that portions of this note have been completed with a voice recognition software. Efforts were made to correct any errors, but occasionally words are mis-transcribed.) Milton Rogers DO 05/26/19 0049 Patient was starting to move and trying to pull at lines Propofol was turned up and patient is tolerating well RASS -4, responds to painful stimulation RASS -3 Head of bed at 30 degrees RASS -3 RASS -[address] INR 1.5 BS 124 Per al center noteFound down this afternoon, LKW last night, lives by self, On arrival patient vomiting, obtunded, flaccid on left side. Intubated. Has purposeful movement on right, not following commands, JIMI. Left facial bruise noted, no other signs of injury or trauma. CT shows a dense Right MCA infarct. ED feels this is likely at least 8-12 hours old. Patient received etomidate and succ for sedation with [address] here 6 vec and Propofol at 15mcg ETT 26 at lips with bilateral breath sounds IO placed L leg nothing infusing Bed: 50 Expected date: 05/25/19 Expected time: 9:42 PM Means of arrival: Ambulance Comments: documented in this encounter Plan of Lee Ann Perez RN - 10/13/2019 6:10 AM EDTPlan of Krysta Rivera RN - 10/12/2019 2:39 AM EDTPlan of Lee Ann Perez RN - 10/11/2019 2:17 AM EDT Miscellaneous Notes (unrecog nized section and content) Problem: Pressure Ulcer - Risk of Goal: Absence of pressure ulcer Outcome: Met Problem: Falls, Risk of Goal: Absence of falls Outcome: Met Problem: Pressure Ulcer - Risk of Goal: Absence of pressure ulcer Outcome: Partially Met Problem: Falls, Risk of Goal: Absence of falls Outcome: Partially Met Problem: Self-care Deficit Goal: Able to use self-care assistive device appropriately Outcome: Partially Met Educated patient on the importance of turning frequently in bed, patient acknowledged. Problem: Actual or potential alteration in health Goal: Absence of healthcare acquired conditions Outcome: Met Goal: Knowledge of Interdisciplinary Plan of Care Outcome: Met Goal: Knowledge of Enviroment Outcome: Met Problem: Pressure Ulcer - Risk of Goal: Absence of pressure ulcer Outcome: Met Problem: Falls, Risk of Goal: Absence of falls Outcome: Met Problem: Actual or potential alteration in health Goal: Absence of healthcare acquired conditions Outcome: Partially Met Goal: Knowledge of Interdisciplinary Plan of Care Outcome: Partially Met Goal: Knowledge of Enviroment Outcome: Partially Met Problem: Pressure Ulcer - Risk of Goal: Absence of pressure ulcer Outcome: Partially Met Problem: Falls, Risk of Goal: Absence of falls Outcome: Partially Met Problem: Stroke - Ischemic - Required Education Goal: Knowledge of care transition plan Outcome: Partially Met Problem: Pain Goal: Manage acute pain Outcome: Partially Met Goal: Manage chronic pain Outcome: Partially Met Goal: Reduced pain sensation Outcome: Partially Met Goal: Achievement of comfort function goal Outcome: Partially Met Problem: Activity Intolerance Goal: Improved activity tolerance Outcome: Partially Met Goal: Able to participate in acute rehabilitation Outcome: Partially Met Goal: Knowledge of prescribed activities Outcome: Partially Met Problem: Bleeding, Risk of Goal: Absence of impaired coagulation signs and symptoms Outcome: Partially Met Problem: Cognitive-Perceptual Pattern - Impaired Goal: Able to achieve maximum level of cognitive ability Outcome: Partially Met Problem: Mood - Altered Goal: Mood stable Outcome: Partially Met Problem: Self-care Deficit Goal: Able to perform ADL Outcome: Partially Met Goal: Able to communicate ADL needs Outcome: Partially Met Goal: Able to use self-care assistive device appropriately Outcome: Partially Met Problem: Tissue Perfusion, Cerebral - Altered Goal: Absence of continued neurologic deterioration signs and symptoms Outcome: Partially Met Problem: Venous Thromboembolism, Risk of Goal: Absence of venous thromboembolism Outcome: Partially Met Problem: Verbal Communication - Impaired Goal: Effective communication Outcome: Partially Met Problem: Plan for Discharge Goal: Knowledge of discharge plan and instructions Outcome: Partially Met Goal: Knowledge of personal stroke risk factors Outcome: Partially Met Goal: Knowledge of stroke warning signs Outcome: Partially Met Problem: Skin Integrity - Impaired Goal: Absence of new skin breakdown Outcome: Partially Met Problem: Skin Integrity - Impaired Goal: Wound healing Outcome: Partially Met Problem: Actual or potential alteration in health Goal: Knowledge of Interdisciplinary Plan of Care Outcome: Partially Met Note: Pt educated on current plan of care, voices being frustrated with current situation and not being able to leave the hospital. Problem: Pressure Ulcer - Risk of Goal: Absence of pressure ulcer Outcome: Partially Met Note: Pt educated on continuing to turn himself. Problem: Falls, Risk of Goal: Absence of falls Outcome: Partially Met Problem: Pain Goal: Manage acute pain Outcome: Partially Met Note: Pts pain continues to be managed by medicine and reposition. Problem: Skin Integrity - Impaired Goal: Absence of new skin breakdown Outcome: Partially Met Problem: Pressure Ulcer - Risk of Goal: Absence of pressure ulcer Outcome: Partially Met Problem: Falls, Risk of Goal: Absence of falls Outcome: Partially Met Problem: Self-care Deficit Goal: Able to perform ADL Outcome: Partially Met Problem: Pressure Ulcer - Risk of Goal: Absence of pressure ulcer Outcome: Partially Met Problem: Self-care Deficit Goal: Able to communicate ADL needs Outcome: Partially Met Problem: Venous Thromboembolism, Risk of Goal: Absence of venous thromboembolism Outcome: Partially Met PHYSICAL THERAPY VISIT VARIANCE NOTE Attempted to see patient at this time, but unable secondary to: patient not available (other caregivers in his room). Will follow up as appropriate. Problem: Actual or potential alteration in health Goal: Absence of healthcare acquired conditions Outcome: Met Goal: Knowledge of Interdisciplinary Plan of Care Outcome: Partially Met Problem: Falls, Risk of Goal: Absence of falls Outcome: Met Problem: Aspiration, Risk of Goal: Absence of aspiration Outcome: Completed Goal: Safe intake of nutrition, fluids, and medications Outcome: Completed Problem: Activity Intolerance Goal: Improved activity tolerance Outcome: Partially Met Problem: Cognitive-Perceptual Pattern - Impaired Goal: Able to achieve maximum level of cognitive ability Outcome: Met Problem: Mood - Altered Goal: Mood stable Outcome: Partially Met Problem: Pain Goal: Manage acute pain Outcome: Partially Met Problem: Actual or potential alteration in health Goal: Absence of healthcare acquired conditions Outcome: Partially Met Goal: Knowledge of Interdisciplinary Plan of Care Outcome: Partially Met Goal: Knowledge of Enviroment Outcome: Partially Met Problem: Pressure Ulcer - Risk of Goal: Absence of pressure ulcer Outcome: Partially Met Problem: Falls, Risk of Goal: Absence of falls Outcome: Partially Met Problem: Stroke - Ischemic - Required Education Goal: Knowledge of care transition plan Outcome: Partially Met Problem: Pain Goal: Manage acute pain Outcome: Partially Met Goal: Manage chronic pain Outcome: Partially Met Goal: Reduced pain sensation Outcome: Partially Met Goal: Achievement of comfort function goal Outcome: Partially Met Problem: Aspiration, Risk of Goal: Absence of aspiration Outcome: Partially Met Goal: Safe intake of nutrition, fluids, and medications Outcome: Partially Met Problem: Activity Intolerance Goal: Improved activity tolerance Outcome: Partially Met Goal: Able to participate in acute rehabilitation Outcome: Partially Met Goal: Knowledge of prescribed activities Outcome: Partially Met Problem: Bleeding, Risk of Goal: Absence of impaired coagulation signs and symptoms Outcome: Partially Met Problem: Cognitive-Perceptual Pattern - Impaired Goal: Able to achieve maximum level of cognitive ability Outcome: Partially Met Problem: Mood - Altered Goal: Mood stable Outcome: Partially Met Problem: Self-care Deficit Goal: Able to perform ADL Outcome: Partially Met Goal: Able to communicate ADL needs Outcome: Partially Met Goal: Able to use self-care assistive device appropriately Outcome: Partially Met Problem: Tissue Perfusion, Cerebral - Altered Goal: Absence of continued neurologic deterioration signs and symptoms Outcome: Partially Met Problem: Venous Thromboembolism, Risk of Goal: Absence of venous thromboembolism Outcome: Partially Met Problem: Verbal Communication - Impaired Goal: Effective communication Outcome: Partially Met Problem: Plan for Discharge Goal: Knowledge of discharge plan and instructions Outcome: Partially Met Goal: Knowledge of personal stroke risk factors Outcome: Partially Met Goal: Knowledge of stroke warning signs Outcome: Partially Met Problem: Skin Integrity - Impaired Goal: Absence of new skin breakdown Outcome: Partially Met Problem: Skin Integrity - Impaired Goal: Wound healing Outcome: Partially Met Problem: Actual or potential alteration in health Goal: Absence of healthcare acquired conditions Outcome: Partially Met Problem: Pressure Ulcer - Risk of Goal: Absence of pressure ulcer Outcome: Partially Met Problem: Falls, Risk of Goal: Absence of falls Outcome: Partially Met Problem: Aspiration, Risk of Goal: Absence of aspiration Outcome: Partially Met Goal: Safe intake of nutrition, fluids, and medications Outcome: Partially Met Spoke to and family at bedside 09/13/19. No one with understanding of why the cranioplasty being held off on despite multiple explanations during this conversation that it was an elective procedure that would need a sig amount of post op care and the fact of the matter is that family including have simply not been available consistently. Discussed that if support was consistent and sufficient, in the future, the procedure would be considered, but currently the risks outweighed the benefit and simply was not an inpatient option currently. Family continued to go back to this issue. Also asked why he couldn't be d/c home or to the facility they had picked out. Discussed that discharge home was problematic as no sig care available as had not thus far shown to be able to be a consistent caregiver. I stated I would talk to the / 09/14/19 about this facility she mentioned and see if it had been looked at. Overall a very difficult placement situation. Problem: Pressure Ulcer - Risk of Goal: Absence of pressure ulcer Outcome: Partially Met Problem: Pain Goal: Manage acute pain Outcome: Partially Met Discussed plan of care with patient. Patient agreeable. Reports 5/10 headache and left hip pain. Comfort medications in MAR and patient repositioned. Non skid footwear on and call light in reach. Problem: Actual or potential alteration in health Goal: Absence of healthcare acquired conditions Outcome: Partially Met Goal: Knowledge of Interdisciplinary Plan of Care Outcome: Partially Met Goal: Knowledge of Enviroment Outcome: Partially Met Problem: Pressure Ulcer - Risk of Goal: Absence of pressure ulcer Outcome: Partially Met Problem: Falls, Risk of Goal: Absence of falls Outcome: Partially Met Problem: Stroke - Ischemic - Required Education Goal: Knowledge of care transition plan Outcome: Partially Met Problem: Pain Goal: Manage acute pain Outcome: Partially Met Goal: Manage chronic pain Outcome: Partially Met Goal: Reduced pain sensation Outcome: Partially Met Goal: Achievement of comfort function goal Outcome: Partially Met Problem: Aspiration, Risk of Goal: Absence of aspiration Outcome: Partially Met Goal: Safe intake of nutrition, fluids, and medications Outcome: Partially Met Problem: Activity Intolerance Goal: Improved activity tolerance Outcome: Partially Met Goal: Able to participate in acute rehabilitation Outcome: Partially Met Goal: Knowledge of prescribed activities Outcome: Partially Met Problem: Bleeding, Risk of Goal: Absence of impaired coagulation signs and symptoms Outcome: Partially Met Problem: Cognitive-Perceptual Pattern - Impaired Goal: Able to achieve maximum level of cognitive ability Outcome: Partially Met Problem: Mood - Altered Goal: Mood stable Outcome: Partially Met Problem: Self-care Deficit Goal: Able to perform ADL Outcome: Partially Met Goal: Able to communicate ADL needs Outcome: Partially Met Goal: Able to use self-care assistive device appropriately Outcome: Partially Met Problem: Tissue Perfusion, Cerebral - Altered Goal: Absence of continued neurologic deterioration signs and symptoms Outcome: Partially Met Problem: Venous Thromboembolism, Risk of Goal: Absence of venous thromboembolism Outcome: Partially Met Problem: Verbal Communication - Impaired Goal: Effective communication Outcome: Partially Met Problem: Plan for Discharge Goal: Knowledge of discharge plan and instructions Outcome: Partially Met Goal: Knowledge of personal stroke risk factors Outcome: Partially Met Goal: Knowledge of stroke warning signs Outcome: Partially Met Problem: Skin Integrity - Impaired Goal: Absence of new skin breakdown Outcome: Partially Met Problem: Skin Integrity - Impaired Goal: Wound healing Outcome: Partially Met Problem: Actual or potential alteration in health Goal: Knowledge of Interdisciplinary Plan of Care Outcome: Partially Met Note: Pt educated on current plan of care. Problem: Pressure Ulcer - Risk of Goal: Absence of pressure ulcer Outcome: Partially Met Problem: Falls, Risk of Goal: Absence of falls Outcome: Partially Met Problem: Self-care Deficit Goal: Able to perform ADL Outcome: Partially Met Note: Pt educated assisting in performing ADLs NEUROSURGERY STAFF Evaluated patient earlier this afternoon. He is now awake, alert. Somewhat impulsive during the examination today. 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 His right-sided craniectomy incision was evaluated in detail and there are no signs of infection/drainage with incision that appears to have healed appropriately. I did discuss his case with Dr. Amin-in terms of timing for his cranioplasty. This is an elective procedure and can be performed once we establish appropriate support system for the patient. Please contact our service once these issues are resolved and I could discuss surgery in more detail with his surrogate medical decision maker. Wilton Rankin MD Plan of care continues. Patient agreeable. Reports 5/10 headache. Comfort medication in SEP. Non skid footwear on and call light in reach. Neurosurgery re consulted regarding timing of cranioplasty. 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 Rankin. Patient has had prolonged hospital course related to trach/PEG, PNA, and right ICA dissection. Tracheostomy decannulated 07/03/19 and PEG tube removed 08/11/19. Exam: Awake and alert, oriented x 3, Gaze conjugate, EOM intact. Left facial, speech clear. Motor strength intact RUE/RLE, LUE/LLE hemiparesis. Cranial flap soft. Imp/Plan: s/p craniectomy 05/26/2019 Dr. Rankin to see patient 09/06 to discuss timing of cranioplasty. D/w Dr. Swenson Discussed plan of care with patient. Patient calm and cooperative. Reports left hip and foot pain. Pain medications and frequent repositioning decrease pain to tolerable level. Non skid footwear on and call light in reach. OCCUPATIONAL THERAPY VISIT VARIANCE NOTE Attempted to see patient at this time, but unable secondary to: OT Visit Variance: Patient Unavailable (comment)(not in room). Will follow up as appropriate. Plan of care was discussed with the patient. Pt verbalized understanding. Problem: Pressure Ulcer - Risk of Goal: Absence of pressure ulcer Outcome: Partially Met Problem: Falls, Risk of Goal: Absence of falls Outcome: Partially Met Safety measures maintained. Pt uses call light when assistance is needed. Problem: Falls, Risk of Goal: Absence of falls Outcome: Met Note: Patient free of falls. Problem: Aspiration, Risk of Goal: Absence of aspiration Outcome: Partially Met Note: Absent of signs and symptoms of aspiration. Problem: Pressure Ulcer - Risk of Goal: Absence of pressure ulcer Outcome: Partially Met Problem: Falls, Risk of Goal: Absence of falls Outcome: Partially Met Plan of care was discussed with the patient. Pt verbalized understanding. Problem: Pressure Ulcer - Risk of Goal: Absence of pressure ulcer Outcome: Partially Met Problem: Falls, Risk of Goal: Absence of falls Outcome: Partially Met Safety measures maintained. Pt uses call light when assistance is needed. Problem: Pressure Ulcer - Risk of Goal: Absence of pressure ulcer Outcome: Partially Met Problem: Aspiration, Risk of Goal: Absence of aspiration Outcome: Partially Met Problem: Self-care Deficit Goal: Able to perform ADL Outcome: Partially Met Behavioral Health Sign-Off Diagnosis: Cognitive impairment Medications: Recommend patient no meds indicated . Follow-up Testing: None Follow-up: No psych follow up indicated Will sign off at this point. Please re-consult or call with questions or concerns. Associated Problem(s): Adjustment disorder The patient denies feeling depressed. He reports feeling angry because he believes the hospital is keeping him here against as well. He has limited understanding of his 's lack of involvement or responsiveness. His cognitive impairment may be influencing his perception of the circumstances. He reports that he is eating and sleeping well. I would not be inclined to start an antidepressant at this time. There may be limited benefit to counseling at this time due to the cognitive impairment. It is likely he may eventually need some counseling or other intervention but given his current perception of the circumstances the primary intervention at this time is ongoing reality orientation. Associated Problem(s): Cognitive impairment The patient has been encephalopathic through much of his hospital stay. Overall his mental status has significantly improved however he continues to have memory impairment and significant impairment in executive function. He has limited understanding of his physical deficits and believes that he can walk and would be able to provide self-care. He has poor understanding of why he is in the hospital. It is unclear what his baseline will be ultimately. Problem: Pressure Ulcer - Risk of Goal: Absence of pressure ulcer Outcome: Partially Met Problem: Pain Goal: Manage acute pain Outcome: Partially Met Goal: Achievement of comfort function goal Outcome: Partially Met Problem: Aspiration, Risk of Goal: Absence of aspiration Outcome: Partially Met Chart reviewed. consulted on HD 80 for adjustment to post cva. No documented acute safety/lethality concerns. Due to the non-urgent nature of this consult, it may be deferred until the full Behavioral Medicine consult team is available. Please call or page with urgent questions or concerns. Janny Wilson MD Psychiatry Pager: [phone] Problem: Tissue Perfusion, Cerebral - Altered Goal: Absence of continued neurologic deterioration signs and symptoms Outcome: Partially Met Note: Signs of neurologic deterioration absent. Problem: Pain Goal: Manage acute pain Outcome: Partially Met Note: Patient complaining of chest pain around 2345, notified physician. Pepcid and PRN Maalox ordered. Therapeutic results noted; patient currently sleeping comfortably in bed. Problem: Mood - Altered Goal: Mood stable Outcome: Partially Met Note: Patient pleasant and cooperative throughout the shift. Problem: Self-care Deficit Goal: Able to communicate ADL needs Outcome: Partially Met Note: Patient adequately expresses ADL needs. Problem: Aspiration, Risk of Goal: Absence of aspiration Outcome: Partially Met Note: Patient free of any signs or symptoms of aspiration. Problem: Mood - Altered Goal: Mood stable Outcome: Partially Met Note: Patient is pleasant and cooperative. Does not express any complaints. Spoke with patients and made aware that the physician will need updated short term disability paperwork related to stroke in order to properly fill out paperwork. stated she will try to bring papers in next weekend due to her work schedule. Late entry 2029: Patient was cleaned up and a new condom cath was placed as the old one was off and a new pull up was placed per patient request. Skin prepped and condom cath in place. Tanner bag hanging on right side of bed. Patient tolerated well. Refused to turn at this time. Wants to sit up in bed with tv on. Called to patients room at this time. Patient states that he is having stabbing chest pain. Vital signs assessed WNL. Heart sounds regular. MD notified. Problem: Falls, Risk of Goal: Absence of falls Outcome: Met Note: Patient free of falls. Problem: Mood - Altered Goal: Mood stable Outcome: Partially Met Note: Patient pleasant and interactive; flat affect. Problem: Pressure Ulcer - Risk of Goal: Absence of pressure ulcer Outcome: Partially Met Problem: Falls, Risk of Goal: Absence of falls Outcome: Partially Met Problem: Pain Goal: Manage acute pain Outcome: Partially Met Problem: Self-care Deficit Goal: Able to perform ADL Outcome: Partially Met Patient encourage to participate in ADL, call light within reach, bed in low position. Will continue hourly rounding Problem: Pressure Ulcer - Risk of Goal: Absence of pressure ulcer Outcome: Partially Met Problem: Falls, Risk of Goal: Absence of falls Outcome: Partially Met Problem: Aspiration, Risk of Goal: Absence of aspiration Outcome: Partially Met Discussed plan of care with patent. Patient agreeable. Denies any pain or discomfort. Patient is turned and repositioned every 2 hours to prevent pressure injuries. Non skid footwear on and call light in reach. Problem: Actual or potential alteration in health Goal: Knowledge of Enviroment 07/30/2019449 by Marilu Wong RN Outcome: Partially Met Problem: Pressure Ulcer - Risk of Goal: Absence of pressure ulcer 07/30/2019449 by Marilu Wong RN Outcome: Partially Met Patient would only allow to be turned and repositioned a few times during shift. Patient would place pillow under left leg. Problem: Falls, Risk of Goal: Absence of falls 07/30/2019449 by Marilu Wong RN Outcome: Partially Met Patient educated on use of call light. Patient verbalized understanding. Call light within reach and home items and over head table in reach. Problem: Pain Goal: Manage acute pain Outcome: Partially Met Problem: Aspiration, Risk of Goal: Absence of aspiration Outcome: Partially Met Patient sitting 90 degrees when eating dinner. Patient tolerated dinner and shake, along with water with no complications or aspiration. Problem: Mood - Altered Goal: Mood stable Outcome: Partially Met Problem: Falls, Risk of Goal: Absence of falls Outcome: Partially Met Patient has been free of falls. Problem: Pain Goal: Manage acute pain Outcome: Partially Met Patient has not complained of pain during shift. Problem: Falls, Risk of Goal: Absence of falls Outcome: Partially Met Note: Patient has been free of falls. Problem: Mood - Altered Goal: Mood stable Outcome: Partially Met Note: Patient is not very interactive with staff. He expresses his needs and that is about it. Pt refusing iv placement at this time. Pt educated throughout today on need for iv and pt still refusing Problem: Actual or potential alteration in health Goal: Absence of healthcare acquired conditions Outcome: Partially Met Goal: Knowledge of Interdisciplinary Plan of Care Outcome: Partially Met Goal: Knowledge of Enviroment Outcome: Partially Met Problem: Actual or potential alteration in health Goal: Knowledge of Interdisciplinary Plan of Care Outcome: Partially Met Problem: Pressure Ulcer - Risk of Goal: Absence of pressure ulcer Outcome: Partially Met Problem: Falls, Risk of Goal: Absence of falls Outcome: Partially Met Problem: Mood - Altered Goal: Mood stable Outcome: Partially Met Problem: Stroke - Ischemic - Required Education Goal: Knowledge of care transition plan Outcome: Met Problem: Aspiration, Risk of Goal: Absence of aspiration Outcome: Partially Met Goal: Safe intake of nutrition, fluids, and medications Outcome: Met Problem: Venous Thromboembolism, Risk of Goal: Absence of venous thromboembolism Outcome: Met Problem: Actual or potential alteration in health Goal: Absence of healthcare acquired conditions Outcome: Partially Met Goal: Knowledge of Interdisciplinary Plan of Care Outcome: Partially Met Goal: Knowledge of Enviroment Outcome: Partially Met Problem: Pressure Ulcer - Risk of Goal: Absence of pressure ulcer Outcome: Partially Met Problem: Falls, Risk of Goal: Absence of falls Outcome: Partially Met Problem: Stroke - Ischemic - Required Education Goal: Knowledge of care transition plan Outcome: Partially Met Problem: Aspiration, Risk of Goal: Absence of aspiration Outcome: Partially Met Goal: Safe intake of nutrition, fluids, and medications Outcome: Partially Met Problem: Activity Intolerance Goal: Improved activity tolerance Outcome: Partially Met Goal: Able to participate in acute rehabilitation Outcome: Partially Met Goal: Knowledge of prescribed activities Outcome: Partially Met Problem: Bleeding, Risk of Goal: Absence of impaired coagulation signs and symptoms Outcome: Partially Met Problem: Cognitive-Perceptual Pattern - Impaired Goal: Able to achieve maximum level of cognitive ability Outcome: Partially Met Problem: Self-care Deficit Goal: Able to perform ADL Outcome: Partially Met Goal: Able to communicate ADL needs Outcome: Partially Met Goal: Able to use self-care assistive device appropriately Outcome: Partially Met Problem: Mood - Altered Goal: Mood stable Outcome: Partially Met Problem: Tissue Perfusion, Cerebral - Altered Goal: Absence of continued neurologic deterioration signs and symptoms Outcome: Partially Met Problem: Venous Thromboembolism, Risk of Goal: Absence of venous thromboembolism Outcome: Partially Met Problem: Verbal Communication - Impaired Goal: Effective communication Outcome: Partially Met Assist pt with reposition in bed. Monitoring pt's skin. Call light with in reach. Will continue to monitoring with the pt. Problem: Pressure Ulcer - Risk of Goal: Absence of pressure ulcer Outcome: Partially Met Problem: Actual or potential alteration in health Goal: Absence of healthcare acquired conditions Outcome: Partially Met Goal: Knowledge of Interdisciplinary Plan of Care Outcome: Partially Met Goal: Knowledge of Enviroment Outcome: Partially Met Problem: Pressure Ulcer - Risk of Goal: Absence of pressure ulcer Outcome: Partially Met Problem: Falls, Risk of Goal: Absence of falls Outcome: Partially Met Problem: Stroke - Ischemic - Required Education Goal: Knowledge of care transition plan Outcome: Partially Met Problem: Pain Goal: Manage acute pain Outcome: Partially Met Goal: Manage chronic pain Outcome: Partially Met Goal: Reduced pain sensation Outcome: Partially Met Goal: Achievement of comfort function goal Outcome: Partially Met Problem: Aspiration, Risk of Goal: Absence of aspiration Outcome: Partially Met Goal: Safe intake of nutrition, fluids, and medications Outcome: Partially Met Problem: Activity Intolerance Goal: Improved activity tolerance Outcome: Partially Met Goal: Able to participate in acute rehabilitation Outcome: Partially Met Goal: Knowledge of prescribed activities Outcome: Partially Met Problem: Bleeding, Risk of Goal: Absence of impaired coagulation signs and symptoms Outcome: Partially Met Problem: Cognitive-Perceptual Pattern - Impaired Goal: Able to achieve maximum level of cognitive ability Outcome: Partially Met Problem: Mood - Altered Goal: Mood stable Outcome: Partially Met Problem: Self-care Deficit Goal: Able to perform ADL Outcome: Partially Met Goal: Able to communicate ADL needs Outcome: Partially Met Goal: Able to use self-care assistive device appropriately Outcome: Partially Met Problem: Tissue Perfusion, Cerebral - Altered Goal: Absence of continued neurologic deterioration signs and symptoms Outcome: Partially Met Problem: Venous Thromboembolism, Risk of Goal: Absence of venous thromboembolism Outcome: Partially Met Problem: Verbal Communication - Impaired Goal: Effective communication Outcome: Partially Met Problem: Plan for Discharge Goal: Knowledge of discharge plan and instructions Outcome: Partially Met Goal: Knowledge of personal stroke risk factors Outcome: Partially Met Goal: Knowledge of stroke warning signs Outcome: Partially Met Problem: Activity Intolerance Goal: Improved activity tolerance Outcome: Partially Met Problem: Activity Intolerance Goal: Able to participate in acute rehabilitation Outcome: Partially Met Pt agreeable to get up into chair for dinner. 2 RN's assisted patient into chair with floor based lift. Helmet applied prior to transferring patient. Pt educated to leave helmet on when out of bed. Pt. Continues to need education re-enforcement. Problem: Falls, Risk of Goal: Absence of falls Outcome: Partially Met Problem: Pain Goal: Manage acute pain Outcome: Partially Met Note: Pt presently denies pain and is resting comfortably; will continue to reasess pain every two hours or when pt notifies that pain is present. Infectious Diseases Progress Note I was called about the patient again because he continues to have left hip pain and tenderness to palpation. No fever or chills, no leukocytosis, in fact white count normalized. No erythema or skin changes around the hip joint. Labs on 07/02, CRP is 17.7, ESR is 58. Blood culture has been negative as well as synovial fluid culture. 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 Infectious etiology is less likely since the patient is not having any systemic manifestations. From ID standpoint, even if we still think this is pyomyositis with bacterial infection, I would recommend CT-guided biopsy for culture and pathology before starting antibiotic since the treatment of pyomyositis involve prolonged course of IV antibiotic. The team is considering trial of short course of steroids, okay to proceed with that from ID standpoint. Please call with any other questions or concerns. Ángel Marrufo MD, pager # [phone] [facility] Infectious Diseases Problem: Pressure Ulcer - Risk of Goal: Absence of pressure ulcer Outcome: Partially Met Note: Pt remained free of new skin breakdown. Will continue to monitor. Problem: Mood - Altered Goal: Mood stable Outcome: Partially Met Note: Pt was able to express physical needs during shift and engage in minimal conversation. Pt affect shifted from cooperative to flat and remained flat for the rest of shift. Will continue to monitor. Problem: Aspiration, Risk of Goal: Absence of aspiration 07/04/2019 06 by Katherin Claros RN Outcome: Met Patient with no s/s of aspiration after nurse gave 1-2 ice chips. Will ask day shift to request a re-evaluation of dysphagia by speech therapy now that patient has been successfully decannulated. Problem: Restraint Use - Nonviolent/Qdf-[id number]-[id number] Behavior Goal: Absence of restraint indications 07/04/[id number] by Katherin Claros RN Outcome: Completed Patient not exhibiting unsafe behaviors, no indication for restraints at this time. Problem: Actual or potential alteration in health Goal: Absence of healthcare acquired conditions Outcome: Partially Met Goal: Knowledge of Interdisciplinary Plan of Care Outcome: Partially Met Goal: Knowledge of Enviroment Outcome: Partially Met Problem: Pressure Ulcer - Risk of Goal: Absence of pressure ulcer Outcome: Partially Met Problem: Falls, Risk of Goal: Absence of falls Outcome: Partially Met Problem: Restraint Use - Nonviolent/Zjp-[id number]-[id number] Behavior Goal: Absence of restraint indications Outcome: Partially Met Problem: Stroke - Ischemic - Required Education Goal: Knowledge of care transition plan Outcome: Partially Met Problem: Aspiration, Risk of Goal: Absence of aspiration Outcome: Partially Met Goal: Safe intake of nutrition, fluids, and medications Outcome: Partially Met Problem: Activity Intolerance Goal: Improved activity tolerance Outcome: Partially Met Goal: Able to participate in acute rehabilitation Outcome: Partially Met Goal: Knowledge of prescribed activities Outcome: Partially Met Problem: Bleeding, Risk of Goal: Absence of impaired coagulation signs and symptoms Outcome: Partially Met Problem: Cognitive-Perceptual Pattern - Impaired Goal: Able to achieve maximum level of cognitive ability Outcome: Partially Met Problem: Mood - Altered Goal: Mood stable Outcome: Partially Met Problem: Tissue Perfusion, Cerebral - Altered Goal: Absence of continued neurologic deterioration signs and symptoms Outcome: Partially Met Problem: Venous Thromboembolism, Risk of Goal: Absence of venous thromboembolism Outcome: Partially Met Problem: Verbal Communication - Impaired Goal: Effective communication Outcome: Partially Met Problem: Plan for Discharge Goal: Knowledge of discharge plan and instructions Outcome: Partially Met Goal: Knowledge of personal stroke risk factors Outcome: Partially Met Goal: Knowledge of stroke warning signs Outcome: Partially Met Problem: Pain Goal: Manage acute pain Outcome: Partially Met Goal: Manage chronic pain Outcome: Partially Met Goal: Reduced pain sensation Outcome: Partially Met Goal: Achievement of comfort function goal Outcome: Partially Met Case discussed with attending. VIR reports diffuse inflammation with aspiration not beneficial at this time. Recommend starting empiric antibiotics per primary. Plan on trial of antibiotics without surgical intervention at this time. Will continue to monitor. Please call orthopedic BERYL with questions. MRI left hip reviewed ...more data not included due to size. Care Teams (unrecognized sec tion and content) Team Status: Active Member Role Status Dates TERESA ROMEO MD Primary Care Provider Acti ve Start: February 08, 2022 GUZMAN LYNN DO Emergency Provider Active Start: February 08, 2022 BELLA GREEN MD Admit Provider Active Start: February 08, 2022 BELLA GREEN MD Attending Provider Active St art: February 08, 2022 BORA LONG MD Other Provider Active St art: February 08, 2022 ELADIO GONZALEZ next of kin Active Team Status: Active Member Role Status Dates TERESA ROMEO MD Primary Care Provider Acti ve Start: November 17, 2022 RAZ RAJAN DO Emergency Provider Active Star t: November 17, 2022 ELADIO GONZALEZ next of kin Active JOHNATHAN GONZALEZ Guarantor Active Team Status: Active Member Role Status Dates TERESA ROMEO MD Primary Care Provider Acti ve Start: February 10, 2023 SHAYLA LOPEZ MD Emergency Provider Active Start: February 10, 2023 PIA GARLAND MD Admit Provider Active Star t: February 10, 2023 PIA GARLAND MD Attending Provider Active Start: February 10, 2023 BOB MCGUIRE MD Other Provider Active Start: A ug2022 ELADIO GONZLAEZ next of kin Active Luisa ZARCO Guarantor Active Family Resource Management Professor Relationship Specialty Start Date End Date No, Physician [facility] PCP - General 05/25/19 Family Resource Management Professor Relationship Specialty Start Date End Date No, Physician [facility] PCP - General 05/25/19 Team Status: Active Member Role Status Dates GAURAV SPEARS MD Primary Care Provider Active Start: June 10, 2023 NHI CONNORS MD Emergency Provider Active Star t: June 10, 2023 ELADIO GONZALEZ next of kin Active Luisa ZARCO Guarantor Active Team Status: Active Member Role Status Dates GAURAV SPEARS MD Primary Care Provider Active Start: June 10, 2023 NHI CONNORS MD Emergency Provider Active Star t: June 10, 2023 CARLYN CAMARGO MD Emergency Provider Active St art: June 22, 2023 SHAYLA MARK MD Admit Provider Active Start: June 22, 2023 SHAYLA MARK MD Attending Provider Active St art: June 22, 2023 JEANNINE BEEBE Other Provider Active Start: Jun ROSITA PALMA PA-C Primary Care Provider Active Start: June 25, 2023 FUENTES SAMUELS MD Emergency Provider Active Sta rt: June 25, 2023 IKE PEPPER MD Admit Provider Active Start: June 25, 2023 IKE PEPPER MD Attending Provider Active Sta rt: June 25, 2023 ELADIO GONZALEZ next of kin Active Luisa ZARCO Guarantor Active Team Status: Active Member Role Status Dates GAURAV SPEARS MD Primary Care Provider Active Start: June 10, 2023 NHI CONNORS MD Emergency Provider Active Star t: June 10, 2023 CARLYN CAMARGO MD Emergency Provider Active St art: June 22, 2023 SHAYLA MARK MD Admit Provider Active Start: June 22, 2023 SHAYLA MARK MD Attending Provider Active St art: June 22, 2023 JEANNINE BEEBE Other Provider Active Start: Jun ROSITA PALMA PA-C Primary Care Provider Active Start: June 25, 2023 FUENTES SAMUELS MD Emergency Provider Active Sta rt: June 25, 2023 IKE PEPPER MD Admit Provider Active Start: June 25, 2023 IKE PEPPER MD Attending Provider Active Sta rt: June 25, 2023 JAMIR CALDERA DO Other Provider Active Sta rt: June 25, 2023 ELADIO GONZALEZ next of kin Active Luisa ZARCO Guarantor Active Family Resource Management Professor Relationship Specialty Start Date End Date No, Physician [facility] PCP - General 05/25/19 Family Resource Management Professor Relationship Specialty Start Date End Date No, Physician [facility] PCP - General 05/25/19 Family Resource Management Professor Relationship Specialty Start Date End Date No, Physician [facility] PCP - General 05/25/19 Family Resource Management Professor Relationship Specialty Start Date End Date No, Physician [facility] PCP - General 05/25/19 Family Resource Management Professor Relationship Specialty Start Date End Date No, Physician [facility] PCP - General 05/25/19 Family Resource Management Professor Relationship Specialty Start Date End Date No, Physician [facility] PCP - General 05/25/19 Team Status: Active Member Role Status Dates LILA HEWITT MD Emergency Provider Active Start: October 26, 2024 SANA DUMONT MD Admit Provider Active Start : October 26, 2024 SANA DUMONT MD Attending Provider Active S tart: October 26, 2024 GAURAV SPEARS MD Primary Care Provider Active Start: October 26, 2024 ELADIO GONZALEZ next of kin Active JOHNATHAN GONZALEZ Guarantor Active Team Status: Active Member Role/Relationship Status Dates Dr. Peng Lan MD Primary Care Provider Active Team Status: Inactive Member Role/Relationship Status Dates MARIAN Esposito Attending Provider Active Start: January 15, 2025 End: January 15, 2025 Dr. Peng Lan MD Primary Care Provider Active Start: January 15, 2025 End: January 15, 2025 Dr. Peng Lan MD Referring Provider Active Start: January 15, 2025 End: January 15, 2025 Goals (unrecognized section and content) Goals may be documented in a n alternate section Scheduled Active and Recently Administ ered Medications (unrecognized section and content) Medication Order 09/30/2023 10/01/2023 10/02/2023 amLODIPine (NORVASC) tablet 5 mg 5 mg, Oral, Every morning, First dose on Sat09/27/23 at 0900 0949 (Given - Provider: Franklin Kam RN) 0922 (Given - Provider: Lolita Danielle) 101 (Given - Provider: Soha Luz, RN) atorvastatin (LIPITOR) tablet 40 mg 40 mg, Oral, At bedtime, First dose on Sat09/26/23 at 2100 2114 (Given - Provider: Sudeep Ya RN) 2136 (Given - Provider: Sudeep Ya RN) baclofen (LIORESAL) tablet 5 mg 5 mg, Oral, 2 times daily, First dose on Sat09/26/23 at 2100 0948 (Given - Provider: Franklin Kam RN)2115 (Given - Provider: Sudeep Ya RN) 09 (Given - Provider: Lolita Danielle)2136 (Given - Provider: Sudeep Ya RN) 101 (Given - Provider: Soha Luz, FRANCA) brexpiprazole (REXULTI) tablet 1 mg 1 mg, Oral, Every morning, First dose on Sat09/27/23 at 0900, Indication: Continuation of home therapy 0948 (Given - Provider: Franklin Kam RN) 162 (Given - Provider: Soha Luz, FRANCA) 101 (Given - Provider: Soha Luz, FRANCA) DULoxetine (CYMBALTA) DR capsule 60 mg 60 mg, Oral, At bedtime, First dose on Sat09/26/23 at 2100, DO NOT CRUSH OR CHEW. 2114 (Given - Provider: Sudeep Ya RN) 2136 (Given - Provider: Sudeep Ya RN) enoxaparin (LOVENOX) syringe 40 mg 40 mg, Subcutaneous, Daily, First dose on Sat09/27/23 at 1500, Administer in abdomen unless otherwise directed by prescriber. Notify physician if patient refuses., Indication: VTE Prophylaxis 0946 (Given - Provider: Frnaklin Kam RN) 0933 (Given - Provider: Lolita Danielle) 1010 (Given - Provider: Soha Luz, FRANCA) finasteride (PROSCAR) tablet 5 mg 5 mg, Oral, Daily, First dose on Sat09/26/23 at 2000, CATEGORY D HAZARDOUS DRUG use safe handling precautions. Use reference link to view PPE guidelines. Minimize crushing/splitting only to situations where clinically necessary. 0948 (Given - Provider: Franklin Kam RN) 0930 (Given - Provider: Lolita Danielle) 1011 (Given - Provider: Soha Luz RN) insulin lispro (AdmeLOG,HumaLOG) injection 0-30 Units 0-30 Units, Subcutaneous, 4 times daily, First dose (after last modification) on Sat09/27/23 at 2100, Obtain for q4h for at least 24 hours postop. Treat ONLY FOR BG > 180. If patient remains NPO then continue q4h BG checks with SSI until diet advanced- After >24 hours and tolerating at least FLD. Patient with diabetes or who were treated with insulin can transition to QAC/H BG checks with QAC/HS SSI. If patient does not have diabetes and never required insulin, can discontinue BG checks and discontinue SSI , Prandial Insulin Dosing Method: NO Prandial Dose - Corrective Scale ONLY, Corrective Insulin Regimen (select desired scale to cover BG result): Insulin SENSITIVE Scale, Dose Reduction Threshold (at meals) for POC Blood Glucose less than or equal to: 80, For Downtime Calculator, use: Insulin SC MEALtime PREprandial 0947 (Not Given - Provider: Franklin Kam RN - Reason: Order parameters not met - Comment: [phone] (Not Given - Provider: Franklin Kam RN - Reason: Order parameters not met - Comment: [phone] (Not Given - Provider: Franklin Kam RN - Reason: Order parameters not met - Comment: [phone] (Not Given - Provider: Sudeep Ya RN - Reason: Order parameters not met) 0920 (Not Given - Provider: Lolita Danielle - Reason: Order parameters not met)1300 (Not Given - Provider: Soha Luz RN - Reason: Order parameters not met)1700 (Not Given - Provider: Soha Luz RN - Reason: Order parameters not met)2100 (Not Given - Provider: Sudeep Ya RN - Reason: Order parameters not met) 0900 (Not Given - Provider: Soha Luz RN - Reason: Order parameters not met)1300 (Due) levETIRAcetam (KEPPRA) tablet 500 mg 500 mg, Oral, 2 times daily, First dose on Kristal 09/26/23 at 2100 0949 (Given - Provider: Franklin Kam RN)2116 (Given - Provider: Sudeep Ya RN) 09 (Given - Provider: Lolita Danielle)2136 (Given - Provider: Sudeep Ya RN) 101 (Given - Provider: Soha Luz, FRANCA) medroxyPROGESTERone (PROVERA) tablet 10 mg 10 mg, Oral, 2 times daily, First dose on Kristal 09/26/23 at 2100, CATEGORY D HAZARDOUS DRUG use safe handling precautions. Use reference link to view PPE guidelines. Minimize crushing/splitting only to situations where clinically necessary. 0949 (Given - Provider: Franklin Kam RN)2116 (Given - Provider: Sudeep Ya RN) 929 (Given - Provider: Lolita Danielle)2137 (Given - Provider: Sudeep Ya RN) 101 (Given - Provider: Soha Luz RN) melatonin tablet 6 mg 6 mg, Oral, Nightly, First dose on Kristal 09/26/23 at 2099 2114 (Given - Provider: Sudeep Ya RN) 2136 (Given - Provider: Sudeep Ya RN) pantoprazole (PROTONIX) EC tablet 40 mg 40 mg, Oral, Every morning, First dose on Sat09/27/23 at 0900, DO NOT CRUSH OR CHEW. 0949 (Given - Provider: Franklin Kam RN) 0931 (Given - Provider: Lolita Danielle) 1011 (Given - Provider: Soha Luz, FRANCA) polyethylene glycol (MIRALAX) powder 17 g 17 g, Oral, Daily, First dose on Sat09/26/23 at 1999 0946 (Given - Provider: Franklin Kam RN) 0931 (Given - Provider: Lolita Danielle - Comment: Last BM = 09/29 no consistence stool appearance per chart) 0900 (Not Given - Provider: Soha Luz, FRANCA - Reason: Patient/family refused) senna-docusate (SENNA-S) 8.6-50 mg per tablet 1 tablet 1 tablet, Oral, 2 times daily, First dose on Kristal 09/26/23 at 2100, Hold for loose stools Do Not Crush or Chew if administering orally due to bitter taste. May be crushed if given via tube. 0949 (Given - Provider: Franklin Kam RN)2120 (Given - Provider: Sudeep Ya RN) 926 (Given - Provider: Lolita Danielle - Comment: Last BM = 09/29 no consistence stool appearance per chart)2136 (Not Given - Provider: Sudeep Ya RN - Reason: Patient/family refused) 0900 (Not Given - Provider: Soha Luz RN - Reason: Patient/family refused) sodium chloride (PF) (NS) flush 5 mL(Linked Group 1) 5 mL, Intravenous, Every 8 hours scheduled, First dose on Kristal 09/26/23 at 2200, PACU to Post Procedure, Saline lock 05 (Not Given - Provider: Pam Connor RN - Reason: Patient/family refused)1444 (Given - Provider: Franklin Kam RN)2200 (Canceled Entry - Provider: Sudeep Ya RN) 0600 (Canceled Entry - Provider: Sudeep Ya RN)1400 (Canceled Entry - Provider: Soha Luz RN - Comment: given w/ initial assessment)2200 (Canceled Entry - Provider: Sudeep Ya RN) 0600 (Canceled Entry - Provider: Sudeep Ya RN)1400 (Due) tamsulosin (FLOMAX) 24 hr capsule 0.4 mg 0.4 mg, Oral, Daily, First dose on Kristal 09/26/23 at 2000, DO NOT CRUSH OR CHEW. Give 30 minutes after the same meal daily. Monitor for orthostasis due to potential risk of syncope. 0949 (Given - Provider: Farnklin Kam RN) 09 (Given - Provider: Lolita Danielle) 1011 (Given - Provider: Soha Luz RN) vancomycin (VANCOCIN) 1500 mg in sodium chloride 0.9% (NS) 500 mL IVPB (CANCELED) 1,500 mg, Intravenous, at 333.3 mL/hr, Every 18 hours, First dose (after last modification) on Sat09/27/23 at 1700, Vanc for prophylaxis. Discontinue once drain removed , Indication: Other: (specify), Indication: Patient with history of MRSA (continue while drain remains in place, otherwise not to exceed 24 hours duration after anesthesia end time if drain has been removed) 0053 (New Bag - Provider: Pam Connor RN)0053 (Paused - Provider: Sudeep Ya RN)0053 (Restarted - Provider: Sudeep Ya RN)0053 (Paused - Provider: Sudeep Ya RN)0053 (Restarted - Provider: Sudeep Ya RN)0223 (Paused - Provider: Sudeep Ya RN)022 (Restarted - Provider: Sudeep Ya RN)0236 (Stopped - Provider: Sudeep Ya RN)1824 (New Bag - Provider: Franklin Kam RN - Comment: waiting on pharmacy)195 (Stopped - Provider: Sudeep Ya RN) 1100 (Not Given - Provider: Soha Luz RN - Reason: Other - Comment: order discontinued) PRN Medication Order 09/30/2023 10/01/2023 10/02/2023 acetaminophen (TYLENOL) tablet 650 mg 650 mg, Oral, Every 4 hours PRN, fever 100.4 F or greater, Starting on Kristal 09/26/23 at 1914 1004 (Given - Provider: Franklin Kam, FRANCA) bisacodyL (DULCOLAX) suppository 10 mg 10 mg, Rectal, Daily PRN, constipation, Starting on Kristal 09/26/23 at 1914, [] Administer if Milk of Magnesia (MOM) is ineffective, or not ordered. lidocaine HCL (UROJET/GLYDO) 2 % applicator 1 Application(Linked Group 2) 1 Application, Intra-urethral, As needed, For insertion of Urinary Catheter, Starting on Kristal 09/26/23 at 1914, For 1 dose magnesium hydroxide (MOM) 400 mg/5 mL suspension 2,400 mg 2,400 mg (30 mL), Oral, Daily PRN, constipation, constipation, Starting on Kristal 09/26/23 at 1914 naloxone (NARCAN) injection 0.1 mg(Linked Group 3) 0.1 mg, Intravenous, As needed, opioid reversal, For respiratory rate less than or equal to 8 per minute., Starting on Kristal 09/26/23 at 1913, Mix nalOXone (NARCAN) 0.4 mg (1mL) with 9 mL of Normal Saline to total 10 mL. Administer 0.1 mg (2.5mL) IV Push every 2 minutes until respiratory rate is 10 or greater. naloxone (NARCAN) injection 0.4 mg(Linked Group 3) 0.4 mg, Intravenous, As needed, opioid reversal, patient is pulseless, breathless, and unresponsive, Starting on Kristal 09/26/23 at 1913, Call a code first, then administer naloxone dose undiluted IV Push over 30 seconds. ondansetron (ZOFRAN) injection 4 mg(Linked Group 4) 4 mg, Intravenous, Every 6 hours PRN, nausea, vomiting, Starting on Kristal 09/26/23 at 1913, Oral or IV - use oral route if tolerated ondansetron (ZOFRAN-ODT) disintegrating tablet 4 mg(Linked Group 4) 4 mg, Oral, Every 6 hours PRN, nausea, vomiting, Starting on Kristal 09/26/23 at 1913, Oral or IV - use oral route if tolerated Formulation requires tablet remain in sealed package until immediately prior to dose being administered. oxyCODONE (ROXICODONE) immediate release tablet 5-10 mg 5-10 mg, Oral, Every 4 hours PRN, moderate to severe pain, Starting on Kristal 09/26/23 at 191, [] Initiate with 5 mg oral every 4 hours prn moderate to severe pain. [] For unrelieved pain, may repeat 5 mg oral dose within 60 minutes of initial dose. [] If pain is RELIEVED after repeat dose, change to 10 mg oral every 4 hours prn moderate to severe pain. [] If pain is UNrelieved after repeat dose, or patient requires dose reduction, call physician. sodium chloride (PF) (NS) flush 5 mL(Linked Group 1) 5 mL, Intravenous, As needed, line care, Starting on Kristal 09/26/23 at 1913, PACU to Post Procedure sodium chloride 0.9% (NS)(Linked Group 1) 0-150 mL/hr, Intravenous, As needed, To flush line after IV infusions when no maintenance IV ordered or a compatibility issue. Infuse 20mL at the same rate as the secondary infusion, Starting on Kristal 09/26/23 at 1914, PACU to Post Procedure, Run as Primary IV. NOT intended for KVO. 0051 (New Bag - Provider: Pam Connor RN)005 (Paused - Provider: Sudeep Ya RN)022 (Restarted - Provider: Sudeep Ya RN)022 (Paused - Provider: Sudeep Ya RN)023 (Restarted - Provider: Sudeep Ya RN)031 (Stopped - Provider: Sudeep Ya RN)1816 (New Bag - Provider: Franklin Kam RN)1818 (Paused - Provider: Sudeep Ya RN)1820 (Restarted - Provider: Sudeep Ya RN)1823 (Paused - Provider: Sudeep Ya RN)1953 (Restarted - Provider: Sudeep Ya RN)2124 (Stopped - Provider: Sudeep Ya RN) Linked Groups Order Group 1: Saline lock IV (CANCELED) Routine, Continuous, Starting on Kristal 09/26/23 at 1915, Until Specified, PACU to Post Procedure And sodium chloride (PF) (NS) flush 5 mLJump to med 5 mL, Intravenous, As needed, line care, Starting on Kristal 09/26/23 at 1914, PACU to Post Procedure And sodium chloride (PF) (NS) flush 5 mLJump to med 5 mL, Intravenous, Every 8 hours scheduled, First dose on Kristal 09/26/23 at 2200, PACU to Post Procedure, Saline lock And sodium chloride 0.9% (NS)Jump to med 0-150 mL/hr, Intravenous, As needed, To flush line after IV infusions when no maintenance IV ordered or a compatibility issue. Infuse 20mL at the same rate as the secondary infusion, Starting on Kristal 09/26/23 at 1914, PACU to Post Procedure, Run as Primary IV. NOT intended for KVO. Group 2: Insert Indwelling Urethral Catheter (COMPLETED) Routine, Once, On Kristal 09/26/23 at 1915, For 1 occurrence, Indication(s): Surgical Indications, Removal Guidance: Remove POD #1 And Maintain and Assess Indwelling Urethral Catheter (CANCELED) Routine, Every 12 hours, First occurrence on Kristal 09/26/23 at 2000, Removal Guidance: Remove POD #1 And Remove and Discontinue Indwelling Urethral Catheter - Remove POD #1 (COMPLETED) Routine, Once, On Kristal 09/26/23 at 1915, For 1 occurrence, Removal Guidance: Remove POD #1 And lidocaine HCL (UROJET/GLYDO) 2 % applicator 1 ApplicationJump to med 1 Application, Intra-urethral, As needed, For insertion of Urinary Catheter, Starting on Kristal 09/26/23 at 1914, For 1 dose Group 3: naloxone (NARCAN) injection 0.1 mgJump to med 0.1 mg, Intravenous, As needed, opioid reversal, For respiratory rate less than or equal to 8 per minute., Starting on Kristal 09/26/23 at 1914, Mix nalOXone (NARCAN) 0.4 mg (1mL) with 9 mL of Normal Saline to total 10 mL. Administer 0.1 mg (2.5mL) IV Push every 2 minutes until respiratory rate is 10 or greater. And Notify physician (CANCELED) STAT, Until discontinued, Starting on Kristal 09/26/23 at 1915, Until Specified, Respiratory rate less than: 8, For respiratory rate less than or equal to 8, notify physician and/or appropriate staff for additional orders. And naloxone (NARCAN) injection 0.4 mgJump to med 0.4 mg, Intravenous, As needed, opioid reversal, patient is pulseless, breathless, and unresponsive, Starting on Kristal 09/26/23 at 1914, Call a code first, then administer naloxone dose undiluted IV Push over 30 seconds. Group 4: ondansetron (ZOFRAN-ODT) disintegrating tablet 4 mgJump to med 4 mg, Oral, Every 6 hours PRN, nausea, vomiting, Starting on Kristal 09/26/23 at 1914, Oral or IV - use oral route if tolerated Formulation requires tablet remain in sealed package until immediately prior to dose being administered. Or ondansetron (ZOFRAN) injection 4 mgJump to med 4 mg, Intravenous, Every 6 hours PRN, nausea, vomiting, Starting on Kristal 09/26/23 at 1914, Oral or IV - use oral route if tolerated Scheduled Medication Order 10/20/2024 10/21/2024 10/22/2024 erythromycin (ROMYCIN) ophthalmic ointment 1-2 cm (COMPLETED) 1-2 cm, Right Eye, NOW, 1 dose, On Kristal 10/22/24 at 1700 1653 (Given - Provid er: Danae Yun LPN) fluorescein ophthalmic strip 1 strip (COMPLETED) 1 strip, Left Eye, ONCE, 1 dose, On Kristal 10/22/24 at 1615 1606 (Given - Provid er: Danae Yun LPN) tetracaine (PONTOCAINE) 0.5 % ophthalmic solution 1 drop (COMPLETED) 1 drop, Left Eye, NOW, 1 dose, On Kristal 10/22/24 at 1615 1606 (Given - Provid er: Danae Yun LPN) FOR RECORDS PERTAINING TO PATIENTS WHO ARE OR HAVE BEEN ENROLLED IN A CHEMICAL DEPENDENCY/SUBSTANCEABUSE PROGRAM, SOME INFORMATION MAY BE OMITTED. This clinical summary was aggregated from multiple sources. Caution should be exercised in using it in the provision of clinical care. This summary normalizes information from multiple sources, and as a consequence, information in this document may materially change the coding, format and clinical context of patient data. In addition, data may be omitted in some cases. CLINICAL DECISIONS SHOULD BE BASED ON THE PRIMARY CLINICAL RECORDS. [facility] [employer] [facility]. provides no warranty or guarantee of the accuracy or completeness of information in this document.
--- NOTE | 2025-03-15 07:10 | PCM.HP.STD ---
HPI - General General Date of Admission: 03/15/25 Date of Service: 03/15/25 Chief Complaint: screening colonoscopy HPI Narrative JOHNATHAN GONZALEZ, is a 50 M who presents with the Chief Complaint: screening colonoscopy Pt referred for screening colonoscopy. Pt with PMHx of CVA and hemiparesis (wheelchair bound) and resides at [facility]. No hx of screening colonoscopy. He denies constipation, diarrhea, blood in stool, abd pain, n/v or heartburn. He has daily bm without straining. Pt notes his mother wanted him to have a colonoscopy due to family hx of colon cancer but he is unsure what family member had it . [facility] Medical History Syncope Benign neoplasm Uses wheelchair Prostate disease BPH (benign prostatic hyperplasia) Gastritis GERD (gastroesophageal reflux disease) Depression Anxiety Stroke/cerebrovascular accident Seizures Gastric reflux Smokeless tobacco use Former smoker Hypertension Home Medications ?Medication ?Instructions ?Recorded ?Last Taken ?Type amlodipine 10 mg tablet 10 mg PO QDAY 01/15/25 Unknown History atorvastatin 40 mg tablet 40 mg PO QDAY 01/15/25 Unknown History baclofen 10 mg tablet 5 mg PO BID 01/15/25 Unknown History finasteride 5 mg tablet 5 mg PO QDAY 01/15/25 Unknown History levetiracetam 500 mg tablet 500 mg PO BID 01/15/25 Unknown History ondansetron HCl 4 mg tablet 4 mg PO Q6H PRN nausea and vomiting 01/15/25 Unknown History tamsulosin 0.4 mg capsule 0.4 mg PO DAILY 01/15/25 Unknown History trazodone 50 mg tablet 50 mg PO QHS insomnia 01/15/25 Unknown History acetaminophen 500 mg tablet 1,000 mg PO Q8H PRN PRN pain 03/05/25 Unknown History (Acetaminophen Extra Strength) aspirin 81 mg capsule 81 mg PO DAILY 03/05/25 Unknown History Held on 03/15/25. Instructions: Order Changed duloxetine 60 mg capsule,delayed 60 mg PO DAILY 03/05/25 Unknown History release lidocaine HCl 2 % mucosal solution 15 ml PO Q3H PRN pain 03/05/25 Unknown History medroxyprogesterone 10 mg tablet 10 mg PO DAILY 03/05/25 Unknown History nitroglycerin 0.4 mg sublingual 0.4 mg sublingual Q5M PRN chest 03/05/25 Unknown History tablet pain pantoprazole 40 mg tablet,delayed 40 mg PO DAILY 03/05/25 Unknown History release polyethylene glycol 3350 17 17 g PO BID 03/05/25 Unknown History gram/dose oral powder (Miralax) sennosides 8.6 mg-docusate sodium 2 tab-cap PO BID 03/05/25 Unknown History 50 mg capsule (Senna Plus) Allergy/AdvReac Type Severity Reaction Status Date / Time No Known Allergies Allergy Verified 03/15/25 07:03 Surgical History History of cholecystectomy History of dental surgery Social History Smoking Status: Former smoker ROS Constitutional Constitutional: Denies fatigue, fever(s), poor appetite, weight gain or weight loss Gastrointestinal Gastrointestinal: Denies belching, bloating, change in bowel habits, change in stool character, chewing difficulty, coffee ground emesis, constipation, cramping, diarrhea, dyspepsia, dysphagia, early satiety, excessive flatus, fecal incontinence, heartburn, hematemesis, hematochezia, hemorrhoids, loose stools, melena, nausea, odynophagia, rectal bleeding, tenesmus, vomiting or weight changes Physical Exam Const alert, oriented x3, no apparent distress and healthy appearing General Appearance: cooperative GI normal to inspection, nondistended, normoactive bowel sounds, soft to palpation, non-tender and non-distended Percussion: normal to percussion Rectal Exam: deferred Assessment & Plan Assessment/Plan (1) Screening for malignant neoplasm of colon: PLAN: Assessment and Plan Assessment and Plan (1) Screening for malignant neoplasm of colon: Status: Acute Plan: Johnathan is a 50 yo male pt with PMhx of CVA and hemiparesis who [facility] here today for evaluation for screening colonoscopy. Pt has no hx of screening colonoscopy. He endorses a family hx of colon cancer but unsure of relation to him. He denies all GI symptoms. Procedure was explained to pt and he was agreeable to be scheduled for this. -Colonoscopy -f.u after procedure
[2025-03-15] MEDS: Lactated Ringers 1,000 ML 15 ML IV (07:19)
--- NOTE | 2025-03-15 07:25 | PCM.PRE.AN2 ---
ASA Classification* ASA Classification ASA Classification: 3 Assessment & Plan Anesthesia* Anesthesia Assessment Anesthesia Assessment: Discussed sedation and/or anesthesia options, risks, benefits, and alternatives with patient/parents/legal guardian/POA. Questions invited. The patient/parents/legal guardian/POA seems to understand and agrees to proceed with anesthesia plan. Reviewed the physical assessment, medical history, allergy history and patient home medications list prior to surgery/procedure/anesthetic and documented any changes. Performed airway and anesthesia risk assessments. 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 When Was Last Pacemaker Check QUESTION #4 FULL TEXT: You/Your Family Experience fever (hyperthermia) with Anesthesia Last Oral Intake Last Oral intake: Last Oral Intake NPO since 14:00 03/15/25 07:05 Meds taken in AM with sips of No 03/15/25 07:05 water? Meds patient instructed to take am of surgery PONV PONV - stadium attendant: PONV - stadium attendant Female No 03/05/25 11:01 HX of Motion Sickness No 03/05/25 11:01 HX of N/V After Surgery No 03/05/25 11:01 Non-Smoker Yes 03/05/25 11:01 Duration of Surgery greater No 03/05/25 11:01 than 60 minutes Number of Risk Factors 1 03/05/25 11:01 PONV Score Low Risk 03/05/25 11:01 Height & Weight Height & Weight: Anesthesia: Height & Weight Height 5 ft 9 in 03/15/25 07:05 Weight: 89.358 kg 03/15/25 07:05 Body Mass Index (BMI) 29.0 03/15/25 07:05 Respiratory Assessment Respiratory Assessment - stadium attendant: Respiratory Tract Infection Hx - stadium attendant Hx Respiratory Tract Infection No 03/05/25 11:01 STOP Sleep Apnea STOP Sleep Apnea - stadium attendant: STOP Sleep Apnea - stadium attendant Hx Hypertension Yes 03/05/25 11:01 Hx Sleep Apnea No 03/05/25 11:01 CPAP BIPAP Do you snore loudly (louder No 03/05/25 11:01 than talking or can be heard Do you often feel tired/ No 03/05/25 11:01 fatigued/ sleepy during daytime? Has anyone observed you stop No 03/05/25 11:01 breathing during sleep? STOP Results Negative 03/05/25 11:01 QUESTION #5 FULL TEXT : Do you snore loudly (louder than talking or can be heard through closed doors)? 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 Specify any problems Hx of Preganancy in last 3 N/A 03/05/25 11:01 Months Nurse Filling Out Transfusion NBUCHER 03/05/25 11:01 & Questions: Date: 03/05/25 03/05/25 11:01 Time: 11:04 03/05/25 11:01 Patient unable to answer at this time (ie. confused, unrespo /Reproduction History /Reproductive History - stadium attendant: /Reproductive Hx- stadium attendant Hx Now No 03/05/25 11:01 Gestational Age (in weeks): EDC: Hx Hx Para Hx Section SAB No 03/05/25 11:01 Active Medications Active Medications: Current Medications Generic Name Dose Route Start Last Admin Trade Name Freq PRN Reason Stop Dose Admin Lactated Ringer's 1,000 mls @ 15 mls/hr 03/15/25 06:45 03/15/25 07:19 IV 15 mls/hr .Q48H ELIER Administration PFSH Medical History Syncope Benign neoplasm Uses wheelchair Prostate disease BPH (benign prostatic hyperplasia) Gastritis GERD (gastroesophageal reflux disease) Depression Anxiety Stroke/cerebrovascular accident Seizures Gastric reflux Smokeless tobacco use Former smoker Hypertension Home Medications ?Medication ?Instructions ?Recorded ?Last Taken ?Type amlodipine 10 mg tablet 10 mg PO QDAY 01/15/25 Unknown History atorvastatin 40 mg tablet 40 mg PO QDAY 01/15/25 Unknown History baclofen 10 mg tablet 5 mg PO BID 01/15/25 Unknown History finasteride 5 mg tablet 5 mg PO QDAY 01/15/25 Unknown History levetiracetam 500 mg tablet 500 mg PO BID 01/15/25 Unknown History ondansetron HCl 4 mg tablet 4 mg PO Q6H PRN nausea and vomiting 01/15/25 Unknown History tamsulosin 0.4 mg capsule 0.4 mg PO DAILY 01/15/25 Unknown History trazodone 50 mg tablet 50 mg PO QHS insomnia 01/15/25 Unknown History acetaminophen 500 mg tablet 1,000 mg PO Q8H PRN PRN pain 03/05/25 Unknown History (Acetaminophen Extra Strength) aspirin 81 mg capsule 81 mg PO DAILY 03/05/25 Unknown History Held on 03/15/25. Instructions: Order Changed duloxetine 60 mg capsule,delayed 60 mg PO DAILY 03/05/25 Unknown History release lidocaine HCl 2 % mucosal solution 15 ml PO Q3H PRN pain 03/05/25 Unknown History medroxyprogesterone 10 mg tablet 10 mg PO DAILY 03/05/25 Unknown History nitroglycerin 0.4 mg sublingual 0.4 mg sublingual Q5M PRN chest 03/05/25 Unknown History tablet pain pantoprazole 40 mg tablet,delayed 40 mg PO DAILY 03/05/25 Unknown History release polyethylene glycol 3350 17 17 g PO BID 03/05/25 Unknown History gram/dose oral powder (Miralax) sennosides 8.6 mg-docusate sodium 2 tab-cap PO BID 03/05/25 Unknown History 50 mg capsule (Senna Plus) Allergy/AdvReac Type Severity Reaction Status Date / Time No Known Allergies Allergy Verified 03/15/25 07:03 Surgical History History of cholecystectomy History of dental surgery Social History Smoking Status: Former smoker Review of Systems (Anesthesia) ROS Narrative System reviewed and no additional complaints, except as documented.
--- NOTE | 2025-03-15 07:30 | COLBX_PTH ---
PATIENT: ABDIRIZAK GONZALEZ LOC: EN U#:[id number] AGE/SX: 50/M ROOM: RE03/15/[address]: Dr. Chino Morgan DO : 1975 BED: DIS: 03/15/2025 SPEC #: [id number] RECD: 03/15/25 13:32 STATUS: CANDELARIA CINDI #: [id number] ROSANA: 03/15/25 07:[address]: Chino Morgan DEPT: SURGICAL PATHOLOGY RECD BY: Tylor Saunders ENTERED: 03/15/25 15:20 SP TYPE: COLON BX JAYJAY DR: Dr. Peng Lan MD Tissues: A - Sigmoid colon biopsy Procedures: Surgery Specimen Level IV HEADER OPERATION: Colonoscopy, incomplete polypectomy PRE-OP DIAGNOSIS: Screening for malignant neoplasm of colon TISSUE SUBMITTED: A- Sigmoid polyp MICROSCOPIC DIAGNOSIS A. Colon, sigmoid, polypectomy: - Tubular adenoma. MICROSCOPIC DESCRIPTION Slides are reviewed. GROSS DESCRIPTION A. Received in formalin labeled with the patient's name and date of . Designated as sigmoid polyp is a 0.9 x 0.9 x 0.5 cm alvarenga-pink, granular and lobulated polypoid portion of tissue devoid of an identifiable resection margin. The specimen is trisected and entirely submitted in 1 cassette. MS 03/15/2025 CPT:08604
--- NOTE | 2025-03-15 08:04 | OP.COLON_ITS ---
Patient Name: Johnathan Flores Procedure Date: 03/15/2025 7:46 AM Date of : 1975 Age: 50 Procedure: Colonoscopy Indications: Screening for colorectal malignant neoplasm Providers: Chino Morgan DO Medicines: Monitored Anesthesia Care Patient Profile: This is a 50 year old male. Refer to note in patient chart for documentation of history and physical. Last Colonoscopy: none. The patient's first colonoscopy is today. Complications: No immediate complications. Procedure: Pre-Anesthesia Assessment: - Prior to the procedure, a History and Physical was performed, and patient medications and allergies were reviewed. The patient is competent. The risks and benefits of the procedure and the sedation options and risks were discussed with the patient. All questions were answered and informed consent was obtained. Patient identification and proposed procedure were verified by the physician in the pre-procedure area. Mental Status Examination: alert and oriented. Airway Examination: normal oropharyngeal airway and neck mobility. Respiratory Examination: clear to auscultation. CV Examination: normal. Prophylactic Antibiotics: The patient does not require prophylactic antibiotics. Prior Anticoagulants: The patient has taken no anticoagulant or antiplatelet agents. ASA Grade Assessment: II - A patient with mild systemic disease. After reviewing the risks and benefits, the patient was deemed in satisfactory condition to undergo the procedure. The anesthesia plan was to use monitored anesthesia care (MAC). Immediately prior to administration of medications, the patient was re-assessed for adequacy to receive sedatives. The heart rate, respiratory rate, oxygen saturations, blood pressure, adequacy of pulmonary ventilation, and response to care were monitored throughout the procedure. The physical status of the patient was re-assessed after the procedure. After I obtained informed consent, the scope was passed under direct vision. Throughout the procedure, the patient's blood pressure, pulse, and oxygen saturations were monitored continuously. The Colonoscope was introduced through the anus and advanced to the hepatic flexure. The colonoscopy was performed without difficulty. The patient tolerated the procedure well. The quality of the bowel preparation was poor. Scope In: 7:55:04 AM Scope Out: 7:59:27 AM Total Procedure Duration Time 0 hours 4 minutes 23 seconds Findings: The perianal and digital rectal examinations were normal. An 8 mm polyp was found in the sigmoid colon. The polyp was sessile. The polyp was removed with a cold snare. Resection and retrieval were complete. Verification of patient identification for the specimen was done. Estimated blood loss was minimal. Extensive amounts of stool was found in the entire colon, precluding visualization. Lavage of the area was performed using copious amounts, resulting in incomplete clearance with continued poor visualization. A few small and large-mouthed diverticula were found in the recto-sigmoid colon, sigmoid colon and descending colon. Impression: - Preparation of the colon was poor. - One 8 mm polyp in the sigmoid colon, removed with a cold snare. Resected and retrieved. - Stool in the entire examined colon. - Diverticulosis in the recto-sigmoid colon, in the sigmoid colon and in the descending colon. Recommendation: - Discharge patient to home. - Resume previous diet. - Continue present medications. - Await pathology results. - Repeat colonoscopy with 3 days of Golytley and 7 days of lquids prior to the prep within 3 months because the bowel preparation was suboptimal. Procedure Code(s): --- Professional --- 03639, 50, Colonoscopy, flexible; with removal of tumor(s), polyp(s), or other lesion(s) by snare technique CPT copyright 2021 [employer]. All rights reserved. The codes documented in this report are preliminary and upon township supervisor review may be revised to meet current compliance requirements. Chino Morgan DO 03/15/2025 8:04:09 AM This report has been signed electronically. Number of Addenda: 0 Note Initiated On: 03/15/2025 7:46 AM
--- NOTE | 2025-03-15 08:04 | OP.PROVAT_ITS ---
03/15/2025 Peng Lan [address] [id number] Re : Colonoscopy procedure for Johnathan Flores Dear Dr. Lan This procedure was performed on Saturday, March 15, 2025. My impressions and recommendations are as follows: Impressions : - Preparation of the colon was poor. - One 8 mm polyp in the sigmoid colon, removed with a cold snare. Resected and retrieved. - Stool in the entire examined colon. - Diverticulosis in the recto-sigmoid colon, in the sigmoid colon and in the descending colon. Recommendations : - Discharge patient to home. - Resume previous diet. - Continue present medications. - Await pathology results. - Repeat colonoscopy with 3 days of Golytley and 7 days of lquids prior to the prep within 3 months because the bowel preparation was suboptimal. My findings are described in the full procedure note, which is enclosed. If I can be of further assistance, please feel free to contact me at . Sincerely, Chino Morgan, 03/15/2025 8:04:09 AM This report has been signed electronically.
--- NOTE | 2025-03-15 08:10 | PCM.POST.ANE ---
Anesthesia: Postop Eval I Current Vital Signs Temperature: 97.5 F Pulse Rate: 90 Blood Pressure: 103/73 Respiratory Rate: 16 Pulse Ox: 94 Oxygen Delivery Method: Room Air Assessment Airway patent: Yes Spontaneous unlabored respirations: Yes Mental status: Asleep nausea: No Vomiting: No Anesthesia Complication: No Fluid Hydration Crystalloid volume administer (ml): 400 Total IV fluid infused: 400 Progress Note Anesthesia document: Postop Eval 1 completed: Yes
--- NOTE | 2025-03-15 08:52 | SUR.PHASEII ---
[facility]UR[facility] CALLED AND REPORT GIVEN TO THE NURSE.
--- NOTE | 2025-03-15 09:39 | PCM.POSTANE2 ---
Anesthesia Postop Eval I Sum Postop Eval Completion status Anesthesia document: Postop Eval 1 completed: Yes Anesthesia Postop Eval I Summary Anesthesia Postop Eval I Summary: Anesthesia Postop Eval I: Assessment Summary Airway patent Yes 03/15/25 08:11 [email or web address] Spontaneous unlabored Yes 03/15/25 08:11 [email or web address] respirations Mental status Asleep 03/15/25 08:11 [email or web address] nausea No 03/15/25 08:11 [email or web address] Vomiting No 03/15/25 08:11 [email or web address] Anesthesia Postop Eval I: Fluid Summary Crystalloid volume administer 400 03/15/25 08:11 [email or web address] (ml) Colloids volume administered ( ml) Blood Product volume administered (ml) Total IV fluid infused 400 03/15/25 08:11 [email or web address] Anesthesia Postop Eval I: Summary Notes Anesthesia Complication No 03/15/25 08:11 [email or web address] Anesthesia Complication Comment: Post-operative progress note Anesthesia: Postop Eval II Evaluation Mental status: Awake and Calm Pain Level: 1 nausea: No Vomiting: No Complications Anesthesia Complication: No
== END 2025-03-15 09:23 | disposition home or self-care (01) ==
LOC: EN 06:37 → AC 06:39
PROVIDERS: PCP Internal Medicine Infectious Disease; Visit Provider Internal Medicine Gastroenterology
PROC: 0DJD8ZZ Inspection of Lower Intestinal Tract, Via Natural or Artificial Opening Endoscopic (ICD-10-PCS; CPT 45378; principal; 2025-03-15 07:25)
DX: Z12.11 Encounter for screening for malignant neoplasm of colon (principal); I69.359 Hemiplegia and hemiparesis following cerebral infarction affecting unspecified side; K57.30 Diverticulosis of large intestine without perforation or abscess without bleeding; Z87.891 Personal history of nicotine dependence; Z80.0 Family history of malignant neoplasm of digestive organs; K21.9 Gastro-esophageal reflux disease without esophagitis; I10 Essential (primary) hypertension; D12.5 Benign neoplasm of sigmoid colon
CPT/HCPCS: 45385; 88305; J2405

== ENCOUNTER 2025-06-14 08:25 | Day surgery (SDC) | payer MEDICARE, MEDICAID, SELFPAY ==
[2025-06-14] VITALS (9 sets, daily range): BP systolic 88–123; BP diastolic 66–93; PULSE 69–78; RESP 16; TEMP 36.2–36.9; O2SAT 96–98; BMI 29.3
--- NOTE | 2025-06-14 08:42 | PCM.PRE.AN2 ---
ASA Classification* ASA Classification ASA Classification: 3 Assessment & Plan Anesthesia* Anesthesia Assessment Anesthesia Assessment: Discussed sedation and/or anesthesia options, risks, benefits, and alternatives with patient/parents/legal guardian/POA. Questions invited. The patient/parents/legal guardian/POA seems to understand and agrees to proceed with anesthesia plan. Reviewed the physical assessment, medical history, allergy history and patient home medications list prior to surgery/procedure/anesthetic and documented any changes. Performed airway and anesthesia risk assessments. 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 When Was Last Pacemaker Check QUESTION #4 FULL TEXT: You/Your Family Experience fever (hyperthermia) with Anesthesia Last Oral Intake Last Oral intake: Last Oral Intake NPO since Meds taken in AM with sips of water? Meds patient instructed to take am of surgery PONV PONV - elevator installer apprentice: PONV - elevator installer apprentice Female No 06/11/25 11:33 HX of Motion Sickness No 06/11/25 11:33 HX of N/V After Surgery No 06/11/25 11:33 Non-Smoker Yes 06/11/25 11:33 Duration of Surgery greater No 06/11/25 11:33 than 60 minutes Number of Risk Factors 1 06/11/25 11:33 PONV Score Low Risk 06/11/25 11:33 Height & Weight Height & Weight: Anesthesia: Height & Weight Height 5 ft 9 in 03/15/25 07:05 Respiratory Assessment Respiratory Assessment - elevator installer apprentice: Respiratory Tract Infection Hx - elevator installer apprentice Hx Respiratory Tract Infection No 06/11/25 11:33 STOP Sleep Apnea STOP Sleep Apnea - elevator installer apprentice: STOP Sleep Apnea - elevator installer apprentice Hx Hypertension Yes 06/11/25 11:33 Hx Sleep Apnea No 06/11/25 11:33 CPAP BIPAP Do you snore loudly (louder No 06/11/25 11:33 than talking or can be heard Do you often feel tired/ No 06/11/25 11:33 fatigued/ sleepy during daytime? Has anyone observed you stop No 06/11/25 11:33 breathing during sleep? STOP Results Negative 06/11/25 11:33 QUESTION #5 FULL TEXT : Do you snore loudly (louder than talking or can be heard through closed doors)? 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 Specify any problems Hx of Preganancy in last 3 N/A 06/11/25 11:33 Months Nurse Filling Out Transfusion NBUCHER 06/11/25 11:33 & Questions: Date: 06/11/25 06/11/25 11:33 Time: 11:35 06/11/25 11:33 Patient unable to answer at this time (ie. confused, unrespo /Reproduction History /Reproductive History - elevator installer apprentice: /Reproductive Hx- elevator installer apprentice Hx Now No 06/11/25 11:33 Gestational Age (in weeks): EDC: Hx Hx Para Hx Section SAB No 06/11/25 11:33 Does the father of the baby or his family experience fever w Father of the baby Malignant Hypertension history comment Active Medications Active Medications: Current Medications Generic Name Dose Route Start Last Admin Trade Name Freq PRN Reason Stop Dose Admin Lactated Ringer's 1,000 mls @ 15 mls/hr 06/14/25 08:45 IV .Q48H [facility] PFSH Medical History Syncope Benign neoplasm Uses wheelchair Prostate disease BPH (benign prostatic hyperplasia) Gastritis GERD (gastroesophageal reflux disease) Depression Anxiety Stroke/cerebrovascular accident Seizures Gastric reflux Smokeless tobacco use Former smoker Hypertension Home Medications ?Medication ?Instructions ?Recorded ?Last Taken ?Type amlodipine 10 mg tablet 10 mg PO QDAY 01/15/25 Unknown History atorvastatin 40 mg tablet 40 mg PO QDAY 01/15/25 Unknown History baclofen 10 mg tablet 5 mg PO BID 01/15/25 Unknown History finasteride 5 mg tablet 5 mg PO QDAY 01/15/25 Unknown History levetiracetam 500 mg tablet 500 mg PO BID 01/15/25 Unknown History ondansetron HCl 4 mg tablet 4 mg PO Q6H PRN nausea and vomiting 01/15/25 Unknown History tamsulosin 0.4 mg capsule 0.4 mg PO DAILY 01/15/25 Unknown History trazodone 50 mg tablet 50 mg PO QHS insomnia 01/15/25 Unknown History acetaminophen 500 mg tablet 1,000 mg PO Q8H PRN PRN pain 03/05/25 Unknown History (Acetaminophen Extra Strength) duloxetine 60 mg capsule,delayed 60 mg PO DAILY 03/05/25 Unknown History release lidocaine HCl 2 % mucosal solution 15 ml PO Q3H PRN pain 03/05/25 Unknown History medroxyprogesterone 10 mg tablet 10 mg PO DAILY 03/05/25 Unknown History nitroglycerin 0.4 mg sublingual 0.4 mg sublingual Q5M PRN chest 03/05/25 Unknown History tablet pain pantoprazole 40 mg tablet,delayed 40 mg PO DAILY 03/05/25 Unknown History release polyethylene glycol 3350 17 17 g PO BID 03/05/25 Unknown History gram/dose oral powder (Miralax) sennosides 8.6 mg-docusate sodium 2 tab-cap PO BID 03/05/25 Unknown History 50 mg capsule (Senna Plus) potassium chloride 20 mEq 20 meq PO DAILY 06/11/25 Unknown History tablet,extended release(part/cryst) Allergy/AdvReac Type Severity Reaction Status Date / Time No Known Allergies Allergy Verified 06/11/25 11:25 Surgical History History of cholecystectomy History of dental surgery Social History Smoking Status: Former smoker Review of Systems (Anesthesia) ROS Narrative System reviewed and no additional complaints, except as documented.
[2025-06-14] MEDS: Lactated Ringers 1,000 ML 15 ML IV (09:19)
--- NOTE | 2025-06-14 09:36 | PCM.HP.STD ---
HPI - General General Date of Admission: 06/14/25 Date of Service: 06/14/25 Chief Complaint: Screening colonoscopy HPI Narrative HPI Narrative JOHNATHAN GONZALEZ, is a 50 M who presents with the Chief Complaint: screening colonoscopy Pt referred for screening colonoscopy. Pt with PMHx of CVA and hemiparesis (wheelchair bound) and resides at [facility]. No hx of screening colonoscopy. He denies constipation, diarrhea, blood in stool, abd pain, n/v or heartburn. He has daily bm without straining. Pt notes his mother wanted him to have a colonoscopy due to family hx of colon cancer but he is unsure what family member had it . ] [facility] Medical History Syncope Benign neoplasm Uses wheelchair Prostate disease BPH (benign prostatic hyperplasia) Gastritis GERD (gastroesophageal reflux disease) Depression Anxiety Stroke/cerebrovascular accident Seizures Gastric reflux Smokeless tobacco use Former smoker Hypertension Home Medications ?Medication ?Instructions ?Recorded ?Last Taken ?Type amlodipine 10 mg tablet 10 mg PO QDAY 01/15/25 Unknown History atorvastatin 40 mg tablet 40 mg PO QDAY 01/15/25 Unknown History baclofen 10 mg tablet 5 mg PO BID 01/15/25 Unknown History finasteride 5 mg tablet 5 mg PO QDAY 01/15/25 Unknown History levetiracetam 500 mg tablet 500 mg PO BID 01/15/25 Unknown History ondansetron HCl 4 mg tablet 4 mg PO Q6H PRN nausea and vomiting 01/15/25 Unknown History tamsulosin 0.4 mg capsule 0.4 mg PO DAILY 01/15/25 Unknown History trazodone 50 mg tablet 50 mg PO QHS insomnia 01/15/25 Unknown History acetaminophen 500 mg tablet 1,000 mg PO Q8H PRN PRN pain 03/05/25 Unknown History (Acetaminophen Extra Strength) duloxetine 60 mg capsule,delayed 60 mg PO DAILY 03/05/25 Unknown History release lidocaine HCl 2 % mucosal solution 15 ml PO Q3H PRN pain 03/05/25 Unknown History medroxyprogesterone 10 mg tablet 10 mg PO DAILY 03/05/25 Unknown History nitroglycerin 0.4 mg sublingual 0.4 mg sublingual Q5M PRN chest 03/05/25 Unknown History tablet pain pantoprazole 40 mg tablet,delayed 40 mg PO DAILY 03/05/25 Unknown History release polyethylene glycol 3350 17 17 g PO BID 03/05/25 06/13/25 History gram/dose oral powder (Miralax) sennosides 8.6 mg-docusate sodium 2 tab-cap PO BID 03/05/25 Unknown History 50 mg capsule (Senna Plus) potassium chloride 20 mEq 20 meq PO DAILY 06/11/25 Unknown History tablet,extended release(part/cryst) Allergy/AdvReac Type Severity Reaction Status Date / Time No Known Allergies Allergy Verified 06/14/25 08:52 Surgical History History of cholecystectomy History of dental surgery Social History Smoking Status: Former smoker ROS Constitutional Constitutional: Denies fatigue, fever(s), poor appetite, weight gain or weight loss Gastrointestinal Gastrointestinal: Denies belching, bloating, change in bowel habits, change in stool character, chewing difficulty, coffee ground emesis, constipation, cramping, diarrhea, dyspepsia, dysphagia, early satiety, excessive flatus, fecal incontinence, heartburn, hematemesis, hematochezia, hemorrhoids, loose stools, melena, nausea, odynophagia, rectal bleeding, tenesmus, vomiting or weight changes Vital Signs Vital Signs Vital Signs: 06/14/25 08:54 06/14/25 08:54 06/14/25 08:59 Temperature 98.4 F Temperature Source Temporal Pulse Rate 74 Respiratory Rate 16 Respiratory Pattern Normal Blood Pressure 123/84 H Blood Pressure Mean 97 Blood Pressure Source Monitor Blood Pressure Position Semi-Fowlers Blood Pressure Location Right Arm Baseline BP 123/84 Pulse Ox 98 Oxygen Delivery Method Room Air Weight Weight: 199 lb Body Mass Index (BMI) 29.3 Physical Exam Const alert, oriented x3, no apparent distress and healthy appearing General Appearance: cooperative GI normal to inspection, nondistended, normoactive bowel sounds, soft to palpation, non-tender and non-distended Percussion: normal to percussion Rectal Exam: deferred Assessment & Plan Assessment/Plan (1) Screening for malignant neoplasm of colon: PLAN: PLAN: Assessment and Plan Assessment and Plan (1) Screening for malignant neoplasm of colon: Status: Acute Plan: Johnathan is a 50 yo male pt with PMhx of CVA and hemiparesis who [facility] for evaluation for screening colonoscopy. Pt has no hx of screening colonoscopy. He endorses a family hx of colon cancer but unsure of relation to him. He denies all GI symptoms. Procedure was explained to pt and he was agreeable to be scheduled for this. -Colonoscopy -f.u after procedure
--- NOTE | 2025-06-14 10:10 | OP.COLON_ITS ---
Patient Name: Johnathan Flores Procedure Date: 06/14/2025 9:37 AM Date of : 1975 Age: 50 Procedure: Colonoscopy Indications: Screening for colorectal malignant neoplasm Providers: Chino Morgan DO Medicines: Monitored Anesthesia Care Patient Profile: This is a 50 year old male. Refer to note in patient chart for documentation of history and physical. Last Colonoscopy: within the past 6 months. Complications: No immediate complications. Procedure: Pre-Anesthesia Assessment: - Prior to the procedure, a History and Physical was performed, and patient medications and allergies were reviewed. The patient is competent. The risks and benefits of the procedure and the sedation options and risks were discussed with the patient. All questions were answered and informed consent was obtained. Patient identification and proposed procedure were verified by the physician in the pre-procedure area. Mental Status Examination: alert and oriented. Airway Examination: normal oropharyngeal airway and neck mobility. Respiratory Examination: clear to auscultation. CV Examination: normal. Prophylactic Antibiotics: The patient does not require prophylactic antibiotics. Prior Anticoagulants: The patient has taken no anticoagulant or antiplatelet agents except for NSAID medication. ASA Grade Assessment: II - A patient with mild systemic disease. After reviewing the risks and benefits, the patient was deemed in satisfactory condition to undergo the procedure. The anesthesia plan was to use monitored anesthesia care (MAC). Immediately prior to administration of medications, the patient was re-assessed for adequacy to receive sedatives. The heart rate, respiratory rate, oxygen saturations, blood pressure, adequacy of pulmonary ventilation, and response to care were monitored throughout the procedure. The physical status of the patient was re-assessed after the procedure. After I obtained informed consent, the scope was passed under direct vision. Throughout the procedure, the patient's blood pressure, pulse, and oxygen saturations were monitored continuously. The colonoscope was introduced through the anus and advanced to the transverse colon. The colonoscopy was performed without difficulty. The patient tolerated the procedure well. The quality of the bowel preparation was poor. The ileocecal valve, appendiceal orifice, and rectum were photographed. Scope In: 9:55:53 AM Scope Out: 10:00:59 AM Total Procedure Duration Time 0 hours 5 minutes 6 seconds Findings: The perianal and digital rectal examinations were normal. A few small-mouthed diverticula were found in the sigmoid colon. Extensive amounts of stool was found in the entire colon, precluding visualization. Lavage of the area was performed using greater than 500 mL, resulting in incomplete clearance with continued poor visualization. Impression: - Preparation of the colon was poor. - Diverticulosis in the sigmoid colon. - Stool in the entire examined colon. - No specimens collected. Recommendation: - Discharge patient to home. - Resume previous diet. - Continue present medications. - Repeat colonoscopy because the bowel preparation was poor. -3-day clear liquids diet and 2-day GoLytely prep Procedure Code(s): --- Professional --- G0121, 53, Colorectal cancer screening; colonoscopy on individual not meeting criteria for high risk CPT copyright 2021 [employer]. All rights reserved. The codes documented in this report are preliminary and upon machine group leader review may be revised to meet current compliance requirements. Chino Morgan DO 06/14/2025 10:10:11 AM This report has been signed electronically. Number of Addenda: 0 Note Initiated On: 06/14/2025 9:37 AM
--- NOTE | 2025-06-14 10:10 | OP.PROVAT_ITS ---
06/14/2025 Peng Lan [address] [place] [address] Re : Colonoscopy procedure for Johnathan Phillipstes Dear Dr. Lan This procedure was performed on Saturday, June 14, 2025. My impressions and recommendations are as follows: Impressions : - Preparation of the colon was poor. - Diverticulosis in the sigmoid colon. - Stool in the entire examined colon. - No specimens collected. Recommendations : - Discharge patient to home. - Resume previous diet. - Continue present medications. - Repeat colonoscopy because the bowel preparation was poor. -3-day clear liquids diet and 2-day GoLytely prep My findings are described in the full procedure note, which is enclosed. If I can be of further assistance, please feel free to contact me at . Sincerely, Chino Friend, 06/14/2025 10:10:11 AM This report has been signed electronically.
--- NOTE | 2025-06-14 10:18 | PCM.POST.ANE ---
Anesthesia: Postop Eval I Current Vital Signs Temperature: 97.3 F Pulse Rate: 75 Blood Pressure: 89/69 Respiratory Rate: 16 Pulse Ox: 97 Oxygen Delivery Method: Room Air Assessment Airway patent: Yes Spontaneous unlabored respirations: Yes Mental status: Asleep nausea: No Vomiting: No Anesthesia Complication: No Fluid Hydration Crystalloid volume administer (ml): 400 Total IV fluid infused: 400 Progress Note Anesthesia document: Postop Eval 1 completed: Yes
--- NOTE | 2025-06-14 10:39 | PCM.POSTANE2 ---
Anesthesia Postop Eval I Sum Postop Eval Completion status Anesthesia document: Postop Eval 1 completed: Yes Anesthesia Postop Eval I Summary Anesthesia Postop Eval I Summary: Anesthesia Postop Eval I: Assessment Summary Airway patent Yes 06/14/25 10:19 [email or web address] Spontaneous unlabored Yes 06/14/25 10:19 [email or web address] respirations Mental status Asleep 06/14/25 10:19 [email or web address] nausea No 06/14/25 10:19 [email or web address] Vomiting No 06/14/25 10:19 [email or web address] Anesthesia Postop Eval I: Fluid Summary Crystalloid volume administer 400 06/14/25 10:19 [email or web address] (ml) Colloids volume administered ( ml) Blood Product volume administered (ml) Total IV fluid infused 400 06/14/25 10:19 [email or web address] Anesthesia Postop Eval I: Summary Notes Anesthesia Complication No 06/14/25 10:19 [email or web address] Anesthesia Complication Comment: Post-operative progress note Anesthesia: Postop Eval II Evaluation Mental status: Awake Pain Level: 0 nausea: No Vomiting: No
--- NOTE | 2025-06-14 10:58 | SUR.PHASEII ---
dr. montanez to call senior living for next steps after bowel prep was poor today.
== END 2025-06-14 11:27 | disposition home or self-care (01) ==
LOC: EN 08:30 → AC 08:31
PROVIDERS: PCP Internal Medicine Infectious Disease; Referring Provider Internal Medicine Infectious Disease; Visit Provider Internal Medicine Gastroenterology
PROC: 0DJD8ZZ Inspection of Lower Intestinal Tract, Via Natural or Artificial Opening Endoscopic (ICD-10-PCS; CPT 45378; principal; 2025-06-14 09:10)
DX: Z12.11 Encounter for screening for malignant neoplasm of colon (principal); I69.359 Hemiplegia and hemiparesis following cerebral infarction affecting unspecified side; K57.30 Diverticulosis of large intestine without perforation or abscess without bleeding; Z87.891 Personal history of nicotine dependence; K21.9 Gastro-esophageal reflux disease without esophagitis; Z80.0 Family history of malignant neoplasm of digestive organs; I10 Essential (primary) hypertension
CPT/HCPCS: G0121; J2405